=== PATIENT | female | born 1985 | race Caucasian/White ===

== ENCOUNTER 2018-01-22 07:58 | Emergency (ER) | payer BC ==
[~2018-01-22] VITALS: Ht 167.6 cm; Wt 126.1 kg
[2018-01-22] MEDS ORDERED: PROBIOTIC1 EAC4 PO (08:15)
[2018-01-22] MEDS ORDERED: ATENOLOL50 MG PO (08:15)
[2018-01-22] MEDS ORDERED: SERTRALINE HCL50 MG PO (08:15)
[2018-01-22] MEDS ORDERED: VITAMIN D250000 UNIT PO (08:16)
--- OUTSIDE RECORDS SUMMARY | 2018-01-22 09:11 | XMS | Encounter Summary ---
Demographics + + + | Address | [address] | | | [place] [address] | + + + | Home Phone | | + + + | Preferred Language | Unknown | + + + | Marital Status | | + + + | Latter-Day Affiliation | Unknown | + + + | Race | White | + + + | Ethnic Group | Not or | + + + Author + + + | Author | [facility] | + + + | Organization | [facility] | + + + | Address | Unknown | + + + | Phone | Unavailable | + + + Support + + + + + | Name | Relationship | Address | Phone | + + + + + | MAME QUINTANA | ECON | [address] | | | | | [place] | | | | | [address] | | + + + + + Care Team Providers + +------+ + | Care Floating Labor Gang Supervisor Name | Role | Phone | + +------+ + | Aleshia Martinez PA-C | PCP | | + +------+ + Encounter Details +--------+------+ + + + | Date | Type | Department | Care Team | Description | +--------+------+ + + + | 01/06/ | Lab | Laboratory at [facility] | | Morbid obesity with | | 2017 | | 3rd Floor [address] | | BMI of 40.0-44.9, | | | | [place], | | adult ([facility]); | | | | [place] [address] | | Borderline diabetes; | | | | [phone] | | Essential | | | | | | hypertension; Mild | | | | | | intermittent asthma | | | | | | without | | | | | | complication; | | | | | | Anxiety; Ventral | | | | | | hernia with | | | | | | obstruction and | | | | | | without gangrene; | | | | | | Stress incontinence | | | | | | in female | +--------+------+ + + + Social History + +-------+ +--------+ + | Tobacco Use | Types | Packs/Day | Years | Date | | | | | Used | | + +-------+ +--------+ + | Former Smoker | | | | Quit: 10/25/2006 | + +-------+ +--------+ + + +---+---+---+ | Smokeless Tobacco: | | | | | Never Used | | | | + +---+---+---+ + + +---------+ + | Alcohol Use | Drinks/We | oz/Week | Comments | | | ek | | | + + +---------+ + | No | | | | + + +---------+ + + + + | Sex Assigned at | Date Recorded | | | | + + + | Not on file | | + + + as of this encounter Plan of Treatment +--------+---------+ + + + | Date | Type | Specialty | Care Team | Description | +--------+---------+ + + + | 03/04/ | Office | Surgery | | | | 2018 | Visit | | | | +--------+---------+ + + + | 04/01/ | Office | Surgery | | | | 2017 | Visit | | | | +--------+---------+ + + + | 04/20/ | Office | Pain Management | Dylan Abraham, | | | 2017 | Visit | | PhD [address] | | | | | | [place], [place] | | | | | | [address] | | | | | | [phone] | | | | | | | | +--------+---------+ + + + as of this encounter Results CBC (HEMOGRAM) ONLY (01/06/2018 4:48 PM) + +-------+ + | Component | Value | Ref Range | + +-------+ + | WHITE CELL COUNT | 9.16 | 3.50 - 10.80 K/cu mm | + +-------+ + | RED CELL COUNT | 4.62 | 4.00 - 5.20 M/cu mm | + +-------+ + | HEMOGLOBIN | 14.5 | 12.0 - 16.0 g/dL | + +-------+ + | HEMATOCRIT | 42.2 | 36.0 - 46.0 % | + +-------+ + | MCV | 91.3 | 80.0 - 96.0 fL | + +-------+ + | MCHC | 34.4 | 33.0 - 35.5 g/dL | + +-------+ + | RDW SD | 43.2 | 35.1 - 46.3 fL | + +-------+ + | PLATELET COUNT | 311 | 150 - 400 K/cu mm | + +-------+ + | MPV | 11.1 | 9.7 - 12.3 fL | + +-------+ + | NRBC% | 0.0 | 0.0 - 0.3 % | + +-------+ + | NRBC# | 0.00 | 0.00 - 0.02 K/cu mm | + +-------+ + + + + | Specimen | Performing Laboratory | + + + | Blood | [facility], [facility]ORE [address] | | | [place] [address] | + + + LIPID SET (TRIG, T CHOL, HDL, CALC LDL) (01/06/2018 4:48 PM) + +---------+ + | Component | Value | Ref Range | + +---------+ + | CHOLESTEROL (LAB) | 252 (H) | <200 mg/dL | + +---------+ + | TRIGLYCERIDES | 206 (H) | <150 mg/dL | + +---------+ + | HDL CHOLESTEROL | 30 (L) | >40 mg/dL | + +---------+ + | HDL CMNT | No Hemo | | + +---------+ + | LDL CHOLESTEROL, | 181 (H) | <100 mg/dL | | CALCULATED | | | + +---------+ + | VLDL CHOLESTEROL, | 41 (H) | <31 mg/dL | | CALCULATED | | | + +---------+ + | NON-HDL CHOLESTEROL | 222 (H) | <130 mg/dL | + +---------+ + + + + | Specimen | Performing Laboratory | + + + | Blood | [facility], CORE [address] | | | [place] [address] | + + + + + | Narrative | + + | Cholesterol Reference Range: Desirable: <200 | | mg/dL Borderline High: 200 - 239 mg/dL | | High: >=240 mg/dL LDL Cholesterol | | Reference Range: Optimal: <100 mg/dL Near | | Optimal: 100-129 mg/dL Borderline High: 130-159 mg/dL | | High: 160-189 mg/dL Very High: | | >=190 mg/dL non-HDL Cholesterol Reference Range: | | Optimal: <130 mg/dL Near Optimal: 130-159 mg/dL | | Borderline High: 160-189 mg/dL High: 190-209 | | mg/dL Very High: >=210 mg/dL Triglyceride Reference | | Range: Normal: <150 mg/dL Borderline High: 150-199 mg/dL | | High: 200-499 mg/dL Very High: >=500 | | mg/dL HDL Reference Range: High Risk: <40 mg/dL | | Desirable: >=60 mg/dL | + + HEMOGLOBIN A1C, BLOOD (01/06/2018 4:48 PM) + + + + | Component | Value | Ref Range | + + + + | HEMOGLOBIN A1C | 5.9 (H)Comment: Hgb A1C Interpretive | <5.7 % | | | Information: <5.7% - Normal | | | | 5.7-6.4% - Consistent with | | | | pre-diabetes >6.4% - Consistent | | | | with diabetes | | | | 5.7-6.4% - Consistent with pre-diabetes | | | | >6.4% - Consistent with diabetes | | | | | | | | | | + + + + + + + | Specimen | Performing Laboratory | + + + | Blood | [facility], SPECIAL IMM + COAG [address] | | [place] [address] | + + + + + | Narrative | + + | Alternate forms of testing such as fructosamine should be considered for | | monitoring winder tender glycemic control in patients with: Increased red cell turnover, | | certain hemoglobinopathies (e.g., HbS, HbE, HbC and thalassemia syndromes), anemias, | | blood loss, chronic liver disease and hemochromatosis (artefactually low HbA1c); iron | | deficiency anemia (artefactually high HbA1c due to enhanced glycation of hemoglobin). | | | + + VITAMIN B1, WHOLE BLOOD (01/06/2018 4:48 PM) + + + + | Component | Value | Ref Range | + + + + | VITAMIN B1, WHOLE | 115Comment: INTERPRETIVE INFORMATION: | 70 - 180 nmol/L | | BLOOD | Vitamin B1, Whole Blood This assay measures | | | | the concentration of thiamine diphosphate | | | | (TDP), the primary active form of vitamin | | | | B1. Approximately 90 percent of vitamin B1 | | | | present in whole blood is TDP. Thiamine and | | | | thiamine monophosphate, which comprise the | | | | remaining 10 percent, are not measured. | | | | Test developed and characteristics | | | | determined by [employer]. See | | | | Compliance Statement B: | | | | [facility]/CSPerformed by [facility] | | | | Formerly [facility],[address] [place] [address] | | | | [phone].[employer], Gerardo Esquivel, | | | | Sushant GOMEZ. Director | | + + + + + + + | Specimen | Performing Laboratory | + + + | Blood | [facility] [address] [address] | | | [place] [address] | + + + COMPLETE METABOLIC SET (NA,K,CL,CO2,BUN,CREAT,GLUC,CA,AST,ALT,BILI TOTAL,ALK PHOS,ALB,PROT TOTAL) (01/06/2018 4:48 PM) + + + + | Component | Value | Ref Range | + + + + | GLUCOSE, PLASMA | 76 | 70 - 99 mg/dL | | (LAB) | | | + + + + | BUN, PLASMA (LAB) | 10 | 6 - 20 mg/dL | + + + + | CREATININE PLASMA | 0.52 (L) | 0.60 - 1.10 mg/dL | | (LAB) | | | + + + + | EGFR - | >60 | >60 mL/min | | ISRAELI | | | + + + + | EGFR NON | >60 | >60 mL/min | | -ISRAELI | | | + + + + | SODIUM, PLASMA (LAB) | 139 | 136 - 145 mmol/L | + + + + | POTASSIUM, PLASMA | 3.5 | 3.4 - 5.0 mmol/L | | (LAB) | | | + + + + | CHLORIDE, PLASMA | 106 | 97 - 108 mmol/L | | (LAB) | | | + + + + | TOTAL CO2, PLASMA | 24 | 21 - 32 mmol/L | | (LAB) | | | + + + + | CALCIUM, PLASMA | 8.8 | 8.6 - 10.2 mg/dL | | (LAB) | | | + + + + | CALCIUM(ALB | 9.0 | 8.6 - 10.2 mg/dL | | CORRECTED) | | | + + + + | BILIRUBIN TOTAL | 0.7 | 0.3 - 1.2 mg/dL | + + + + | TOTAL PROTEIN, | 7.6 | 6.4 - 8.2 g/dL | | PLASMA (LAB) | | | + + + + | ALBUMIN, PLASMA | 3.8 | 3.5 - 4.7 g/dL | | (LAB) | | | + + + + | ALK PHOS | 59 | 42 - 98 U/L | + + + + | AST(SGOT) | 21 | <=41 U/L | + + + + | ALT (SGPT) | 32 | <=60 U/L | + + + + | ANION GAP | 9 | 4 - 11 mmol/L | + + + + | ANION GAP(ALB | 9 | 4 - 11 mmol/L | | CORRECTED) | | | + + + + | POTASSIUM CMNT | No Hemo | | + + + + | BILI T CMNT | No Hemo | | + + + + | AST CMNT | No Hemo | | + + + + + + + | Specimen | Performing Laboratory | + + + | Blood | [facility], [facility] [address] [facility] | | | [place] [address] | + + + + + | Narrative | + + | Adult glucose reference range change effective 05-05-17. GFR is estimated using the | | MDRD equation recommended by the National Kidney Disease Education Program. | | Estimated GFR Interpretive Information: <60 mL/min/1.73 sq | | m Chronic Kidney Disease <15 mL/min/1.73 sq | | m Kidney Failure Estimated GFR greater that 60 mL/min/1.73 | | sq m is of limited clinical value. The MDRD equation is not valid in the following | | situations: - Patients under 18 years of age - Severe malnutrition or obesity - | | Vegetarian diet - Rapidly changing kidney function | + + CBC ONLY (01/06/2018 4:48 PM) + + + | Specimen | Performing Laboratory | + + + | Blood | | + + + + + | Narrative | + + | The following orders were created for panel order CBC ONLY. | | Procedure | | Abnormality Status | | --------- | | ------ CBC (HEMOGRAM) | | ONLY[[id number]] Final | | result Please view results for these tests on the | | individual orders. | + + IRON AND TIBC (01/06/2018 4:48 PM) + +-------+ + | Component | Value | Ref Range | + +-------+ + | IRON | 124 | 30 - 160 ug/dL | + +-------+ + | IRON BIND CAP | 367 | 240 - 450 ug/dL | + +-------+ + | % SATURATION | 34 | 20 - 50 % | | TRANSFERRIN, | | | + +-------+ + + + + | Specimen | Performing Laboratory | + + + | Blood | [facility], [address] | | | [place] [address] | + + + VITAMIN B-12 (01/06/2018 4:48 PM) + +-------+ + | Component | Value | Ref Range | + +-------+ + | VITAMIN B12 | 403 | 193 - 986 pg/mL | + +-------+ + | COMMENT (HEMO) | 1 | | + +-------+ + | COMMENT (ICTERUS) | 1 | | + +-------+ + | COMMENT (LIPEMIA) | 1 | | + +-------+ + + + + | Specimen | Performing Laboratory | + + + | Blood | [facility], [address] [address] | | | [place] [address] | + + + FERRITIN (01/06/2018 4:48 PM) + + + + | Component | Value | Ref Range | + + + + | FERRITIN | 46 (L)Comment: Male and Female >18 years: | 50 - 200 ng/mL | | | <20 ng/mL: Consistant with | | | | iron deficiency 21-50 ng/mL: | | | | Possible iron deficiency 51-99 | | | | ng/mL: Iron deficiency unlikely | | | | unless inflammation present | | | | or p | | | | atient >65 years of age 100-200 | | | | ng/mL: Normal, not consistent with | | | | iron deficiency >200 ng/mL: | | | | If transferrin saturation >45%, consider | | | | hemochromatosis | | + + + + + + + | Specimen | Performing Laboratory | + + + | Blood | [facility], [address]ORE [address] [facility] | | | [place] [address] | + + + PTH, SERUM (01/06/2018 4:48 PM) + +-------+ + | Component | Value | Ref Range | + +-------+ + | PTH, SERUM | 51 | 18 - 88 pg/mL | + +-------+ + + + + | Specimen | Performing Laboratory | + + + | Blood | [facility], [address] [facility] [address] | | | [place] [address] | + + + + + | Narrative | + + | New Reference Range effective 17. | + + VITAMIN D, 25-HYDROXY, SERUM (01/06/2018 4:48 PM) + + + + | Component | Value | Ref Range | + + + + | VITAMIN D 25 HYDROXY | 18.7 (L) | 30 - 80 ng/mL | + + + + + + + | Specimen | Performing Laboratory | + + + | Blood | [facility], [address]ORE [address] | | | [place] [address] | + + + + + | Narrative | + + | Reference Interval: 0-18years: Deficiency: <20 ng/mL | | Optimum level: >or=20 | | ng/mL >18years: | | Deficiency: <20 ng/mL | | Insufficiency: 20-29 ng/mL Optimum Level: 30-80 ng/mL | | High: 81-150 ng/ml | | Toxic: >150 ng/mL | + + TSH (01/06/2018 4:48 PM) + +-------+ + | Component | Value | Ref Range | + +-------+ + | TSH | 3.91 | 0.39 - 4.17 mIU/L | + +-------+ + + + + | Specimen | Performing Laboratory | + + + | Blood | [facility], [address] [facility] | | | [place] [address] | + + + + + | Narrative | + + | TSH reference ranges are influenced by a variety of environmental influences, age, | | gender and ethnicity. The supplied reference limits are based on published values | | utilizing a similar TSH assay, and should be interpreted with caution. | + + in this encounter Visit Diagnoses + + | Diagnosis | + + | Morbid obesity with BMI of 40.0-44.9, adult (HCC) | + + | Borderline diabetes | + + | Other abnormal glucose | + + | Essential hypertension | + + | Mild intermittent asthma without complication | + + | Unspecified asthma | + + | Anxiety | + + | Anxiety state, unspecified | + + | Ventral hernia with obstruction and without gangrene | + + | Ventral hernia, unspecified, with obstruction | + + | Stress incontinence in female | + +"
--- OUTSIDE RECORDS SUMMARY | 2018-01-22 09:11 | XMS | Encounter Summary ---
Demographics + + + | Address | [address] | | | [place] [address] | + + + | Home Phone | | + + + | Preferred Language | Unknown | + + + | Marital Status | | + + + | Nondenominational Affiliation | Unknown | + + + | Race | White | + + + | Ethnic Group | Not or | + + + Author + + + | Author | [facility] | + + + | Organization | [facility] | + + + | Address | Unknown | + + + | Phone | Unavailable | + + + Support + + + + + | Name | Relationship | Address | Phone | + + + + + | MAME QU[place]NA | ECON | [address] | | | | | [place] | | | | | [address] | | + + + + + Care Team Providers + +------+ + | Care Roll Builder Name | Role | Phone | + +------+ + | Aleshia Martinez PA-C | PCP | | + +------+ + Encounter Details +--------+ + + + + | Date | Type | Department | Care Team | Description | +--------+ + + + + | 01/07/ | Telephone | Digestive Health | Yumiko Clarke, | | | 2017 | | Center at [facility] | [facility] [address] [facility] [address] | | | | | Floor [address] | [facility] | | | | | [address] Mailcode: CH[address]S | [place], [place] | | | | | [place] [facility] | [address] | | | | | and [place], [facility] | [phone] | | | | | floor [place], [place] | | | | | | [address] | | | | | | [phone] | | | +--------+ + + + + Social History + +-------+ [...] | 2017 | Visit | | PhD [address] | | | | | | [place], [place] | | | | | | [address] | | | | | | [phone] | | | | | | | | +--------+---------+ + + + as of this encounter Visit Diagnoses + + | Diagnosis | + + | Morbid obesity with BMI of 40.0-44.9, adult (HCC) - Primary | + + | Borderline diabetes | + + | Other abnormal glucose | + + | Essential hypertension | + + | Ventral hernia with obstruction and without gangrene | + + | Ventral hernia, unspecified, with obstruction | + + | Vitamin D deficiency disease | + + | Unspecified vitamin D deficiency | + +"
--- OUTSIDE RECORDS SUMMARY | 2018-01-22 09:11 | XMS | Clinical Summary ---
Demographics + + + | Address | [address] | | | [place] [address] | + + + | Home Phone | | + + + | Preferred Language | Unknown | + + + | Marital Status | | + + + | Amish Affiliation | Unknown | + + + | Race | White | + + + | Ethnic Group | Not or | + + + Author + + + | Author | [facility] | + + + | Organization | [facility] | + + + | Address | Unknown | + + + | Phone | Unavailable | + + + Support + + + + + | Name | Relationship | Address | Phone | + + + + + | MAME QUINTANA | ECON | [address] | | | | | [place] | | | | | [address] | | + + + + + Care Team Providers + +------+ + | Care Printed Circuit Board Panels Plater Name | Role | Phone | + +------+ + | Aleshia Martinez PA-C | PP | | + +------+ + Source Comments CANDY is fully live on both EpicCare Ambulatory and EpicCare InPatient.[facility] Allergies + + + + + + | Active Allergy | Reactions | Severity | Noted | Comments | | | | | Date | | + + + + + + | Adhesive | Rash | | 10/25/20 | | | | | | 17 | | + + + + + + | Contrast Medium | Rash | | 10/25/20 | | | | | | 17 | | + + + + + + | Latex | Rash | | 10/25/20 | | | | | | 17 | | + + + + + + | Naproxen | Rash | | 10/25/20 | | | | | | 17 | | + + + + + + Current Medications + + +---------+---------+------+------+-------+ | Prescription | Sig. | Disp. | Refills | Star | End | Statu | | | | | | t | Date | s | | | | | | Date | | | + + +---------+---------+------+------+-------+ | ATENOLOL ORAL | Take 50 mg by mouth | | | | | Activ | | | once daily. | | | | | e | + + +---------+---------+------+------+-------+ | sertraline 50 mg | Take 50 mg by mouth | | | | | Activ | | oral tablet | once daily. | | | | | e | + + +---------+---------+------+------+-------+ | LACTOBAC 40/BIFIDO | Take by mouth once | | | | | Activ | | 3/S.THERMOP | daily. | | | | | e | | (PROBIOTIC ORAL) | | | | | | | + + +---------+---------+------+------+-------+ | | Take 1 tablet by | | | | | Activ | | desogestrel-ethinyl | mouth once daily. | | | | | e | | estradiol (ENSKYCE) | | | | | | | | 0.15-0.03 mg oral | | | | | | | | tablet | | | | | | | + + +---------+---------+------+------+-------+ | IBUPROFEN ORAL | Take by mouth as | | | | | Activ | | | needed. | | | | | e | + + +---------+---------+------+------+-------+ | | Take 0.5 tablets by | | | | | Activ | | HYDROcodone-acetamin | mouth every four | | | | | e | | ophen 10-325 mg oral | hours as needed. | | | | | | | tablet | | | | | | | + + +---------+---------+------+------+-------+ | fluticasone 50 | Instill 2 sprays | | | | | Activ | | mcg/actuation nasal | into each nostril as | | | | | e | | spray,suspension | needed. | | | | | | + + +---------+---------+------+------+-------+ | ALBUTEROL INHL | Inhale as needed. | | | | | Activ | | | | | | | | e | + + +---------+---------+------+------+-------+ | cetirizine 10 mg | Take 10 mg by mouth | | | | | Activ | | oral tablet | once daily. | | | | | e | + + +---------+---------+------+------+-------+ | ergocalciferol | Take 1 capsule by | 15 | 0 | 03/1 | | Activ | | 50,000 unit oral | mouth every seven | capsule | | 04/13 | | e | | capsuleIndications: | days. Indications: | | | 18 | | | | Vitamin D Deficiency | Vitamin D Deficiency | | | | | | | (High Dose Therapy) | (High Dose Therapy) | | | | | | + + +---------+---------+------+------+-------+ | Cholecalciferol | Take 1 tablet by | 60 | 3 | 03/1 | | Activ | | (Vitamin D3) | mouth once daily. | tablet | | /20 | | e | | (VITAMIN D3) 5,000 | Indications: Vitamin | | | 18 | | | | unit oral | D Deficiency | | | | | | | tabletIndications: | | | | | | | | Vitamin D Deficiency | | | | | | | + + +---------+---------+------+------+-------+ Active Problems + + + | Problem | Noted Date | + + + | Morbid obesity with BMI of 40.0-44.9, adult (HCC) | 01/06/2018 | + + + | Borderline diabetes | 01/06/2018 | + + + | Essential hypertension | 01/06/2018 | + + + | Mild intermittent asthma without complication | 01/06/2018 | + + + | Anxiety | 01/06/2018 | + + + | Ventral hernia with obstruction and without gangrene | 01/06/2018 | + + + | Stress incontinence in female | 01/06/2018 | + + + Encounters +--------+ + + + + | Date | Type | Specialty | Care Team | Description | +--------+ + + + + | 01/12/ | MyChart | | Yumiko Clarke, | RE: RE: Is this | | 2018 | Encounter | | ACNP | vitamin ok? | +--------+ + + + + | 01/07/ | Telephone | | Yumiko Clarke, | | | 2017 | | | ACNP | | +--------+ + + + + | 01/06/ | Lab | | | Morbid obesity with | | 2017 | | | | BMI of 40.0-44.9, | | | | | | adult ([facility]); | | | | | | Borderline diabetes; | | | | | | Essential | | | | [...] | | | | in female | +--------+ + + + + | 01/06/ | Office | | Chetna Alves, RD | Morbid obesity with | | 2018 | Visit | | | BMI of 40.0-44.9, | | | | | | adult ([facility]) (Primary | | | | | | Dx); Ventral hernia | | | | | | with obstruction | | | | | | and without | | | | | | gangrene; Borderline | | | | | | diabetes | +--------+ + + + + | 01/06/ | Office | | Yumiko Clarke, | Morbid obesity with | | 2018 | Visit | | ACNP | BMI of 40.0-44.9, | | | | | | adult (HCC) (Primary | | | | | | Dx); Borderline | | | | | | diabetes; Essential | | | | | | [...] | | | | in female | +--------+ + + + + | 01/06/ | Office | | Christelle Hannon, PT | Morbid obesity with | | 2018 | Visit | | | BMI of 40.0-44.9, | | | | | | adult ([facility]) (Primary | | | | | | Dx); Essential | | | | | | hypertension; | | | | | | Ventral hernia with | | | | | | obstruction and | | | | | | without gangrene; | | | | | | Physical | | | | | | deconditioning | +--------+ + + + + | 10/27/ | Abstract | | Clinic, Surgery | Referral To | | 2018 | | | | Bariatric Surgery | +--------+ + + + + | 10/27/ | Crew Leader | | Marta Simmons, | Morbid obesity (HCC) | | 2017 | | | AGACNP | (Primary Dx) | +--------+ + + + + | 10/26/ | Documentati | | Clinic, Surgery | | | 2017 | on | | | | +--------+ + + + + | 10/26/ | Documentati | | Clinic, Surgery | | | 2017 | on | | | | +--------+ + + + + | 10/26/ | Documentati | | Yumiko Clarke, | New patient | | 2018 | on | | ACNP | consultation | | | | | | (Bariatric | | | | | | questionnaire) | +--------+ + + + + from Last 3 Months Family History + + +------+ + | Medical History | Relation | Name | Comments | + + +------+ + | High blood pressure | Brother | | hyperlipidemia | + + +------+ + | Allergies | Brother | | | + + +------+ + | Diabetes | Mother | | | + + +------+ + | High blood pressure | Mother | | hyperlipidemia | + + +------+ + + +------+--------+ + | Relation | Name | Status | Comments | + +------+--------+ + | Brother | | Alive | | + +------+--------+ + | Brother | | Alive | | + +------+--------+ + | Father | | Alive | | + +------+--------+ + | Mother | | Alive | | + +------+--------+ + Social History + +-------+ +--------+ + [...] on file | | + + + Last Filed Vital Signs + + + + | Vital Sign | Reading | Time Taken | + + + + | Blood Pressure | 149/95 | 01/06/2018 2:10 PM PDT | + + + + | Pulse | 70 | 01/06/2018 2:10 PM PDT | + + + + | Temperature | 36.8 C (98.3 F) | 01/06/2018 2:10 PM PDT | + + + + | Respiratory Rate | 14 | 01/06/2018 2:10 PM PDT | + + + + | Oxygen Saturation | 97% | 01/06/2018 2:10 PM PDT | + + + + | Inhaled Oxygen | - | - | | Concentration | | | + + + + | Weight | 126.3 kg (278 lb 6.4 | 01/06/2018 2:10 PM PDT | | | oz) | | + + + + | Height | 167.6 cm (5' 6") | 01/06/2018 2:10 PM PDT | + + + + | Body Mass Index | 44.93 | 01/06/2018 2:10 PM PDT | + + + + Plan of Treatment +--------+---------+ + + + | Date | Type | Specialty | Care Team | Description | +--------+---------+ + + + | 03/04/ | Office | | | | | 2017 | Visit | | | | +--------+---------+ + + + | 04/01/ | Office | | | | | 2017 | Visit | | | | +--------+---------+ + + + | 04/20/ | Office | | Dylan Abraham, | | | 2017 | Visit | | PhD [address] | | | | | | [place], [place] | | | | | | [address] | | | | | | [phone] | | | | | | | | +--------+---------+ + + + + + + + + | Health Maintenance | Due Date | Last Done | Comments | + + + + + | INFLUENZA VACCINE | | | | | (FLU SHOT) | 7 | | | + + + + + Procedures + +--------+ + + + | Procedure Name | Priori | Date/Time | Associated Diagnosis | Comments | | | ty | | | | + +--------+ + + + | [facility] THERAPEUTIC | Routin | 01/10/2018 | Morbid obesity | | | EXERCISES | e | 9:42 AM | with BMI of | | | | | PDT | 40.0-44.9, adult | | | | | | ([facility]) Essential | | | | | | hypertension | | | | | | Ventral hernia with | | | | | | obstruction and | | | | | | without gangrene | | | | | | Physical | | | | | | deconditioning | | + +--------+ + + + | [facility] MNT INITIAL | Routin | 01/07/2018 | Ventral hernia | | | ASSESSMNT X15MIN | e | 7:51 AM | with obstruction and | | | | | PDT | without gangrene | | | | | | Morbid obesity with | | | | | | BMI of 40.0-44.9, | | | | | | adult (HCC) | | | | | | Borderline diabetes | | + +--------+ + + + from Last 3 Months Results CBC (HEMOGRAM) ONLY (01/06/2018 4:48 PM) [...] | + + + | Blood | [facility], CORE [address] | | | [place] [address] | + + + VITAMIN B1, WHOLE BLOOD (01/06/2018 [...] characteristics | | | | determined by [employer]. See | | | | Compliance Statement B: | | | | [employer]CSPerformed by [employer] | | | | Formerly [facility],[address] [place] [address] | | | | [phone], Gerardo Esquivel, | | | | Sushant GOMEZ. Director | | + + + + + + + | Specimen | Performing Laboratory | + + + | Blood | [facility] INT [address] | | | [place] [address] | + + + VITAMIN D, 25-HYDROXY, SERUM (01/06/2018 4:48 PM) + + + + | Component | Value | Ref Range | + + + + | VITAMIN D 25 HYDROXY | 18.7 (L) | 30 - 80 ng/mL | + + + + + + + | Specimen | Performing Laboratory | + + + | Blood | [facility], CORE [address] | | | [place] [address] | + + + + + | Narrative | + + | Reference Interval: 0-18years: Deficiency: <20 ng/mL | | Optimum level: >or=20 | | ng/mL >18years: | | Deficiency: <20 ng/mL | | Insufficiency: 20-29 ng/mL Optimum Level: 30-80 ng/mL | | High: 81-150 ng/ml | | Toxic: >150 ng/mL | + + COMPLETE METABOLIC SET (NA,K,CL,CO2,BUN,CREAT,GLUC,CA,AST,ALT,BILI TOTAL,ALK [...] | >60 | >60 mL/min | | ENGLISH | | | + + + + | EGFR NON | >60 | >60 mL/min | | -ENGLISH | | | + + + + [...] | + + + | Blood | [facility], CORE [address] | | | [place] [address] | + + + + + | Narrative | + + | Adult glucose reference range change effective 7-17. GFR is estimated using the | | [...] | | ------ CBC (HEMOGRAM) | | ONLY[[id number]] Final | | result Please view results for these tests on the | | individual orders. | + + FERRITIN (01/06/2018 4:48 PM) + [...] | + + + | Blood | [facility], CORE [address] | | | [place] [address] | + + + PTH, SERUM (01/06/2018 4:48 PM) + +-------+ + | Component | Value | Ref Range | + +-------+ + | PTH, SERUM | 51 | 18 - 88 pg/mL | + +-------+ + + + + | Specimen | Performing Laboratory | + + + | Blood | [facility], CORE [address] | | | [place] [address] | + + + + + | Narrative | + + | New Reference Range effective 17. | + + TSH (01/06/2018 4:48 PM) + +-------+ + | Component | Value | Ref Range | + +-------+ + | TSH | 3.91 | 0.39 - 4.17 mIU/L | + +-------+ + + + + | Specimen | Performing Laboratory | + + + | Blood | [facility], CORE [address] | | | [place] [address] | + + + + + | Narrative | + + | TSH reference ranges are influenced by a variety of environmental influences, age, | | gender and ethnicity. The supplied reference limits are based on published values | | utilizing a similar TSH assay, and should be interpreted with caution. | + + LIPID SET (TRIG, T CHOL, [...] | + + + | Blood | [facility], CORE [address] [place] [address] | | | [place] [address] | + + + + + | [...] | Desirable: >=60 mg/dL | + + VITAMIN B-12 (01/06/2018 4:48 PM) [...] | + + + | Blood | [facility], CORE [address] | | | [place] [address] | + + + HEMOGLOBIN A1C, BLOOD (01/06/2018 4:48 [...] | + + + | Blood | [facility], SPECIAL IMM + COAG [address] | | | [place] [address] | + + + + + | Narrative | + + | Alternate forms of testing such as fructosamine should be considered for | | monitoring residential glycemic control in patients with: Increased red cell turnover, | | certain hemoglobinopathies (e.g., HbS, HbE, HbC and thalassemia syndromes), anemias, | | blood loss, chronic liver disease and hemochromatosis (artefactually low HbA1c); iron | | deficiency anemia (artefactually high HbA1c due to enhanced glycation of hemoglobin). | | | + + IRON AND TIBC (01/06/2018 [...] | + + + | Blood | [facility], CORE [address] | | | [place] [address] | + + + 12 LEAD ECG (01/06/2018 4:25 PM) + + + + | Component | Value | Ref Range | + + + + | VENTRICULAR RATE | 57 | bpm | + + + + | ATRIAL RATE | 57 | ms | + + + + | P-R INTERVAL | 162 | ms | + + + + | P AXIS | 52 | deg | + + + + | QRS DURATION | 103 | ms | + + + + | QT | 431 | ms | + + + + | QTCB | 420 | ms | + + + + | R AXIS | -13 | deg | + + + + | T AXIS | 24 | deg | + + + + | ECG IMPRESSION | Sinus bradycardia- OTHERWISE NORMAL ECG - | | + + + + | ECG IMPRESSION | Electronically signed by: HUMBLE BURK | | | | 01-07-2018 22:38:11 | | + + + + + + + | Specimen | Performing Laboratory | + + + | | [facility] [address] | | | [place] [address] | + + + from Last 3 Months
--- OUTSIDE RECORDS SUMMARY | 2018-01-22 09:11 | XMS | Encounter Summary ---
Demographics + + + | Address | [address] | | | [place] [address] | + + + | Home Phone | | + + + | Preferred Language | Unknown | + + + | Marital Status | | + + + | Muslim Affiliation | Unknown | + + + | Race | White | + + + | Ethnic Group | Not or | + + + Author + + + | Author | [facility] | + + + | Organization | [facility] | + + + | Address | Unknown | + + + | Phone | Unavailable | + + + Support + + + + + | Name | Relationship | Address | Phone | + + + + + | MAME QUINTANA | ECON | [address] | | | | | [place] | | | | | [address] | | + + + + + Care Team Providers + +------+ + | Care Director Prison Name | Role | Phone | + +------+ + | Aleshia Martinez PA-C | PCP | | + +------+ + Reason for Visit Physical Therapy (Routine) + +--------+ + + + + | Status | Reason | Specialty | Diagnoses / | Referred By | Referred To | | | | | Procedures | Contact | Contact | + +--------+ + + + + | Pending | | Physical | Diagnoses | Iris | Erinn Lopez Ch | | Review | | Therapy | Morbid | Mary W, | [address] | | | | | obesity | AGACNP [address] | | | | | ([facility]) | [address] | Mailcode: | | | | | Procedures | [place], | [address] | | | | | PHYSICAL | [place] | for Health | | | | | THERAPY | [address] | and Healing, | | | | | REFERRAL | Phone: | 1st floor | | | | | | [phone] | [place], [place] | | | | | | Fax: | [address] | | | | | | [phone] | Phone: | | | | | | | [phone] | | | | | | | Fax: | | | | | | | [phone] | + +--------+ + + + + Encounter Details +--------+---------+ + + + | Date | Type | Department | Care Team | Description | +--------+---------+ + + + | 01/06/ | Office | Rehabilitation | Nesha Hannon, PT | Morbid obesity with | | 2018 | Visit | Services at [facility] 1st | [address] | BMI of 40.0-44.9, | | | | Floor [address] | [address] [place], | adult (HCC) (Primary | | | | Ave Mailcode: CH3P | [place] [address] | Dx); Essential | | | | [place] [facility] | [phone] | hypertension; | | | | and Healing, 1st | | Ventral hernia with | | | | floor [place], [place] | | obstruction and | | | | [address] | | without gangrene; | | | | [phone] | | Physical | | | | | | deconditioning | +--------+---------+ + + + Social History + +-------+ [...] + + + as of this encounter Progress Notes Nseha Hannon, PT - 01/06/2018 1:00 PM PDTFormatting of this note may be different from byron smith. Insurance: Payor: WORKERS COMP OTHER / Plan: WORKERS COMP OTHER / Product Type: Workers Com p / Non-Medicare [facility] PHYSICAL THERAPY EVALUATION Past Medical History: Diagnosis Date Anxiety Asthma Depression Diverticulitis Glucose intolerance (impaired glucose tolerance) HTN (hypertension) Irregular periods Morbid obesity with BMI of 40.0-44.9, adult (HCC) Pneumonia Ventral hernia, recurrent Past Surgical History Procedure Laterality Date Diagnostic laparoscopy 2009 Fallopian tube transection 2012 Ventral hernia repair with mesh 2014 Hernia repair 2015 Addition of mesh implant to ventral hernia repair 2015 Current Outpatient Prescriptions: ALBUTEROL INHL, Inhale as needed., Disp: , Rfl: ATENOLOL ORAL, Take 50 mg by mouth once daily. , Disp: , Rfl: cetirizine 10 mg oral tablet, Take 10 mg by mouth once daily., Disp: , Rfl: Cholecalciferol (Vitamin D3) (VITAMIN D3) 5,000 unit oral tablet, Take 1 tablet by mouth on ce daily. Indications: Vitamin D Deficiency, Disp: 60 tablet, Rfl: 3 desogestrel-ethinyl estradiol (ENSKYCE) 0.15-0.03 mg oral tablet, Take 1 tablet by mouth on ce daily., Disp: , Rfl: ergocalciferol 50,000 unit oral capsule, Take 1 capsule by mouth every seven days. Indicati ons: Vitamin D Deficiency (High Dose Therapy), Disp: 15 capsule, Rfl: 0 fluticasone 50 mcg/actuation nasal spray,suspension, Instill 2 sprays into each nostril as needed., Disp: , Rfl: HYDROcodone-acetaminophen 10-325 mg oral tablet, Take 0.5 tablets by mouth every four hours as needed., Disp: , Rfl: IBUPROFEN ORAL, Take by mouth as needed., Disp: , Rfl: LACTOBAC 40/BIFIDO 3/S.THERMOP (PROBIOTIC ORAL), Take by mouth once daily., Disp: , Rfl: sertraline 50 mg oral tablet, Take 50 mg by mouth once daily., Disp: , Rfl: Previous physical therapy treatment or alternative treatments for this condition includes: none. Results of previous treatment: N/A. Concurrent medical treatment: PCP. Condition Specific Evaluation: Including Body functions, Body structures and Impairments Pain: pain is not a significant clinical problem [facility] PHYSICAL THERAPY EVALUATION History of Presenting Problem: Pt is here for Prehabilitation evaluation prior to Bariatric abdominal surgery. She plans to have the gastric sleeve abdominal surgery . Prior Services: Current Services: Current PA: stepper or walking daily 2.4 miles. Current functional Status: Indep. Pain Reported in location of abdomen ( hernia) intermittent pain. Pain is a 0-9/10 on a scale of 0-10. Pain is: with up and moving around, wears a corset ab dominal brace. Sleep -insomnia, vitamin D helping. Patient's current occupational status: unable to work due to pain/injury. lives with husba nd. Living situation/environment is limiting function: no Equipment at home: none Requests family members or friends involved with rehabilitation therapy: No Anxieties o r concerns about therapy: no Patient's goals are to: be healthier. OBJECTIVE: EXAM: Vitals:135/78mmHg BP 67 Po2 98 % Weight: ROM: WFL Balance/Coordination: steady gait and turns. Transfers: difficulty with lying to sitting(wears an abdominal brace) Outcome Measures: Outcome measure Score 01/06/2018 Interpretation Goal at 12 weeks 30 sec sit to stand 9 reps Normal values: 30 y/o = 30 reps 40 y/o = 25 reps 50 y/o = 20 reps 60 y/o = 15 reps 70 y/o = 13 reps 80 y/o = 12 reps 90 y/o = 10 reps 30 sec sit to stand: 25-30 reps 6 min walk test: Vitals at rest: 135/78mmHg BP 67 PO2 98 % Vitals at end of walk test: 143/71 HR 79 PO2 98% Distance walked: 1457 ft Assistive device: no Deviations: no Seated/standing breaks: no RPE: light-moderate (Track = 110') 6-Minute Walk Test Distances: Means and Standard Deviations by Age and Gender 30-39 yo: male 2346'/female 2133' Treatment: Therapeutic exercises:15 minutes Intervention Date* Comments Compliance 01/06/2018 Predicted: good Progressive walking program 01/06/2018 Instructions and handout provided General light strengthening/stretching exercises 01/06/2018 Instructions and handout provi ded Logroll instruction 01/06/2018 Instructions and handout provided Abdominal precautions instruction 01/06/2018 Instructions and handout provided * indicates date intervention started. see comments for details of compliance, modification s, deletions ASSESSMENT: Patient is a referred to PT for prehabilitation evaluation prior to Bariatric a bdominal surgery. Patient exam findings include decreased ROM, decreased strength, decreased activity tolerance and physical deconditioning. Scored lower than age norms on functional t ests. Symptoms are limiting patient with daily and functional activities including: bending over, running , prolonged walking. Best evidence practice recommends obese pt's with knee pain lose 5% of their wt doing non-w t bearing activities prior to doing wt bearing activities to avoid progress on OA. Patient has been provided with instruction on appropriate exercise and pain control strateg ies to increase aerobic PA to prepare for major bariatric abdominal surgery. She will grace nue with her walking program and add light strengthening exercises demonstrated today. LONG-TERM GOALS: Discussed with . Due in 12 weeks. Aerobic PA 30 minutes per day, all days(may be three 10 minute or two 15 minute bouts) Performing strengthening exercises 3x/wk. Independent with home exercise program. See topics above to identify problem areas and goals Personal factors/Comorbidities: Musculoskeletal , Posture, Height/Weight BMI and Hernia C ommunication: No noted deficits, Psychosocial: No noted deficits, Moderate 1-2 Body structures & functions, Activity limitations, participation restrictions: Moderate - 3 or more Justification: prolonged walking, jumping/ running, transfers, lifting Stability of condition: Pre-op status with uncertain recovery course Moderate - Evolving Clinical decision making: Pre-op status with uncertain recovery course Moderate - Moderate complexity Complexity: Moderate - 01390 The patient requires services that can be safely and effectively performed only by a qualif ied therapist to address the aforementioned and highlighted problems and goals. Goals discussed and agreed upon with patient and/or family. Individual cultural and social needs addressed. Rehab Potential: Good, if Sara carries through with home exercise program. This note is to serve as the discharge summary if the patient fails to attend further Physi yoanna Therapy appointments or contact the therapist regarding any change in their status. NESHA HANNON, PT [facility] 1ST FLOOR Scheduled Appointment time: 1:00 PM Treatment began: 1300 Treatment ended: 1345 Patient was seen for a total of 45 minutes of treatment time. 45 minutes was in direct cont act care as described above and on completed flow sheets. Treatment Interventions duration in minutes: Procedure:Physical Therapy Evaluation and Ther apeutic Exercise 15 min PLAN OF CARE (Established 01/06/2018 to be updated every 60 days): Aerobic PA Strengthening exercises Stretching exercises Frequency: 1 Duration: 1 Total number of visits: 1 Referral information Authorizing Provider: MARY ADAMS [[id number]] Onset/Referral Date: 10/27/17 Primary/Referral Diagnosis: E66.01, Z68.41 Morbid obesity with BMI of 40.0-44.9, adult (H CC) I10 Essential hypertension K43.6 Ventral hernia with obstruction and without gangrene R53.81 Physical deconditioning Start of care: 01/06/2018 Service period from: 01/06/2018 to: - Next progress report 02/05/2018 Insurance: Payor: WORKERS COMP OTHER / Plan: WORKERS COMP OTHER / Product Type: [employer] p / G-code:- code not needed. Number visits authorized: 1 Number visits used: 1 Outcome Measure 01/06/2018 Activity 1 (3 point increase is significant for any one activity): 3 (standing for more than 1 hour) Activity 2: 3 (washing dishes) Activity 3: 3 (lying to sitting) Activity 4: 0 Activity 5: 0 Patient Specific Functional Scale Total Score: 9 in this encounter Plan of Treatment +--------+---------+ + [...] | | | | | | [place], [place] | | | | | | [address] | | | | | | [phone] | | | | | | | | +--------+---------+ + + + as of this encounter Procedures + +--------+ + + + | Procedure Name | Priori | Date/Time | Associated Diagnosis | Comments | | | ty | | | | + +--------+ + + + | MS THERAPEUTIC | Routin | 01/10/2018 | Morbid obesity | | | EXERCISES | e | 9:42 AM | with BMI of | | | | | PDT | 40.0-44.9, adult | | | | | | (HCC) Essential | | | | | | hypertension | | | | | | Ventral hernia with | | | | | | obstruction and | | | | | | without gangrene | | | | | | Physical | | | | | | deconditioning | | + +--------+ + + + in this encounter Visit Diagnoses + + | Diagnosis | + + | Morbid obesity with BMI of 40.0-44.9, adult (HCC) - Primary | + + | Essential hypertension | + + | Ventral hernia with obstruction and without gangrene | + + | Ventral hernia, unspecified, with obstruction | + + | Physical deconditioning | + + | Debility, unspecified | + +"
--- OUTSIDE RECORDS SUMMARY | 2018-01-22 09:11 | XMS | Encounter Summary ---
Demographics + + + | Address | [address] | | | [place] [address] | + + + | Home Phone | | + + + | Preferred Language | Unknown | + + + | Marital Status | | + + + | Church Affiliation | Unknown | + + + | Race | White | + + + | Ethnic Group | Not or | + + + Author + + + | Author | [facility] | + + + | Organization | [facility] | + + + | Address | Unknown | + + + | Phone | Unavailable | + + + Support + + + + + | Name | Relationship | Address | Phone | + + + + + | MAME QUINTANA | ECON | [address] | | | | | [place] | | | | | [address] | | + + + + + Care Team Providers + +------+ + | Care Door Closer Mechanic Name | Role | Phone | + +------+ + | Aleshia Martinez PA-C | PCP | | + +------+ + Encounter Details +--------+ + + + + | Date | Type | Department | Care Team | Description | +--------+ + + + + | 01/12/ | MyChart | [facility] | Yumiko Clarke, | RE: RE: Is this | | 2018 | Encounter | Center at [facility] 6th | ACNP [address] | vitamin [place]? | | | | Floor [address] | [address] | | | | | [address] Mailcode: CH4S | [place], [place] | | | | | [place] [facility] | [address] | | | | | and , | [phone] | | | | | floor [place], [place] | | | | | | [address] | | | | | | [phone] | | | +--------+ + + + [...] | | | | | | [place] | | | | | | [address] | | | | | | [phone] | | | | | | | | +--------+---------+ + + + as of this encounter Visit Diagnoses Not on filein this encounter"
--- OUTSIDE RECORDS SUMMARY | 2018-01-22 09:12 | XMS | Encounter Summary ---
Demographics + + + | Address | [address] | | | [place] [address] | + + + | Home Phone | | + + + | Preferred Language | Unknown | + + + | Marital Status | | + + + | Yarsanism Affiliation | Unknown | + + + | Race | White | + + + | Ethnic Group | Not or | + + + Author + + + | Author | [facility] | + + + | Organization | [facility] | + + + | Address | Unknown | + + + | Phone | Unavailable | + + + Support + + + + + | Name | Relationship | Address | Phone | + + + + + | MAME QUINTANA | ECON | [address] | | | | | [place] | | | | | [address] | | + + + + + Care Team Providers + +------+ + | Care Roving Frame Tender Name | Role | Phone | + +------+ + | Aleshia Maritnez PA-C | PCP | | + +------+ + Reason for Referral Consultation (Routine) + +---------+ + + + + | Status | Reason | Specialty | Diagnoses / | Referred By | Referred To | | | | | Procedures | Contact | Contact | + +---------+ + + + + | New Request | Other | Pain | Diagnoses | Vince, | Electrical And Instrument Engineer Psych | | | | Management | Morbid | BIJAL Calderon | [address] | | | | | obesity with | [address] | | | | | BMI of | Guillermo Regan | Mail Code: | | | | | 40.0-44.9, | Shahla Sepulveda | [facility] | | | | | adult (HCC) | [place], [place] | for Health | | | | | Borderline | [address] | and Healing, | | | | | diabetes | Phone: | 15th Floor | | | | | Essential | [phone] | [place], [place] | | | | | hypertension | Fax: | [address] | | | | | Mild | [phone] | Phone: | | | | | intermittent | | [phone] | | | | | asthma | | Fax: | | | | | without | | [phone] | | | | | complication | | | | | | | Anxiety | | | | | | | Ventral | | | | | | | hernia with | | | | | | | obstruction | | | | | | | and without | | | | | | | gangrene | | | | | | | Stress | | | | | | | incontinence | | | | | | | in female | | | | | | | Procedures | | | | | | | CONSULT TO | | | | | | | PAIN | | | | | | | MANAGEMENT | | | + +---------+ + + + + Reason for Visit + + + | Reason | Comments | + + + | New patient | | | consultation | | + + + Consultation (Routine) + + + + + + + | Status | Reason | Specialty | Diagnoses / | Referred By | Referred To | | | | | Procedures | Contact | Contact | + + + + + + + | Pending | BAR: | Surgery | Diagnoses | Perez | Bar | | Review | Scheduled | | Morbid | Dalton, | Bariatric | | | with CASE PREPARER AND LINER | | obesity | Ganesh Holden MD | Surg [facility] | | | | | (HCC) | [address] | [address] | | | | | Procedures | [place] Regan | [place] | | | | | CONSULT TO | Shahla Sepulveda | Mailcode: | | | | | BARIATRIC | [place], [place] | [address] | | | | | SURGERY | [address] | for Health | | | | | | Phone: | and Healing, | | | | | | [phone] | [facility] floor | | | | | | Fax: | [place], [place] | | | | | | [phone] | [address] | | | | | | | Phone: | | | | | | | [phone] | | | | | | | Fax: | | | | | | | [phone] | + + + + + + + Encounter Details +--------+---------+ + + + | Date | Type | Department | Care Team | Description | +--------+---------+ + + + | 01/06/ | Office | Digestive Health | Yumiko Clarke, | Morbid obesity with | | 2018 | Visit | Center at [facility] 6th | [facility] [address] | BMI of 40.0-44.9, | | | | Floor [address] | [address] | adult ([facility]) (Primary | | | | Ave Mailcode: [facility] | [place], [place] | Dx); Borderline | | | | [place] for [facility] | [address] | diabetes; Essential | | | | and Healing, 6th | [phone] | hypertension; Mild | | | | floor [place], [place] | | intermittent asthma | | | | [address] | | without | | | | [phone] | | complication; | | | | | | Anxiety; Ventral | | | | | | hernia with | | | | | | obstruction and | | | | | | without gangrene; | | | | | | Stress incontinence | | | | | | in female | +--------+---------+ + + + Social History [...] + + + as of this encounter Last Filed Vital Signs + + + [...] PM PDT | + + + + in this encounter Instructions Patient Instructions - Yumiko Clarke ACNP - 01/06/2018 2:05 PM PDTImpression: 1. Borderline diabetes 2. HTN takes atenolol, BP elevated akfnh=008/95 3. Ventral hernia with MESH 4. Hx multiple abdominal surgeries 5. Asthma uses inhaler 6. Stress incontinence 7. Anxiety & depression This patient meets and or exceeds NIH criteria for morbid obesity with a BMI of 44.93 and c omorbidities related to obesity including pre-Type 2 diabetes, asthma, stress urinary incont inence and hypertension which may be improved with bariatric surgery. Records have been reviewed from her PCM and several attempts have been made to lose weight over the past years without success. She qu alifies for medically necessary weight loss surgery to control co-morbidities. Sara Caballero has attended the Public Informational Session in which risks and leslie efits of bariatric surgery were discussed. Discussion of realistic expectations of bariatri c surgery was held today. A Bariatric notebook with pre-op, inter-op and post-op guidance an d information was provided for the patient today. Plan: The following has been provided to Sara Caballero This is a preliminary visit for a evaluation for bariatric surgery. There are some patients who have too many illnesses, and this elective surgery would not be safe for them. We have listed some of the potential reasons below. You can over eat ANY of the surgeries. The surgery is a tool with diet and exercise to help you obtain a healthy weight. + Dietitian consultation: Today. + Physical therapy referral for Bariatric Surgery Prehabilitation: Today + Weight Management classes: 2 classes are required in addition to your private appointme nt with the manager marketing sales. These classes will be scheduled apporoximately 1 month apart to allow time for you to put the teaching into action. + Labs needed: Lipids, CBC, CMP, TSH, A1C, PTH, Vitamin D25, ferritin, B12, TIBC & iron. Please go to the 3rd floor and have these labs done. + Pap test: Please obtain thru your primary care and we want to see the lab result from e PAP smear. (not the note from your provider) + EKG: Please go to 9th floor today to get this done. + Pre-op Psychological Evaluation: If your referral is at [facility], The Pain Management Office will call you in the next week to schedule. + Please start taking a daily multivitamin with iron. + Insurance requirements: your insurance requires: none + Recommended weight loss: 5% wt loss goal of 14 pounds. If you are struggling with your w eight loss please call us to discuss some options. +The patient is willing to comply with the post-operative treatment plan Once the above list is completed and copies have been received by our office, we will submi t for insurance authorization then schedule with the surgeon. Yumiko PARSONS Bariatric Surgery Nurse Practitioner [facility] | [facility] [address] | [place], [place] | [address] | Potential Contraindications to Bariatric Surgery Age over 69 BMI over 60 Oxygen dependence Immobility wheelchair or bed bound Cardiac issues such as ischemic heart disease as indicated on cardiac stress test or cardia c catheterization; severe or uncompensated heart failure which may be indicated by a decreas ed ejection fraction. Pulmonary issues such as untreated sleep apnea, obesity hypoventilation syndrome, severe CO PD or asthma. Liver disease such as cirrhosis, esophageal varices, or portal hypertension. Severe, untreated renal disease. Rheumatologic and other diseases requiring immune suppressant medications. Untreated or active cancer. Untreated psychological disability. If you have any of the above conditions, you may not be a candidate for bariatric surgery. Our program will perform a thorough evaluation prior to making such a determination. This evaluation may involve testing or consultations. We will make every effort to notify patien ts who are not candidates for surgery as early in the process as possible, but it is importa nt to realize that the surgeon may make that determination later in the process. Clearance for surgery by your PCP or other providers does not guarantee that the [facility] Bariatric Surger y program will deem you a surgical candidate. in this encounter Progress Notes Yumiko Clarke ACNP - 01/06/2018 2:05 PM PDTFormatting of this note may be different from the original. BARIATRIC INITIAL VISIT Provider: Yumiko APPIAH PATIENT SAFETY TECH Referring Provider: Aleshia Martinez PA-C Reason for Requested Consultation: Initial evaluation for bariatric surgery. Sara LongjohanaAric is interested in sleeve g astrectomy. The pt is here by herself, she will have her at home to help with post-op care afte r surgery. History of Present Illness: She is a morbidly obese, 32 y.o. female with a BMI of 44.93, 2 78 lbs., and 5 foot 6 inches who has failed prior attempts at sustained dietary/medical weig ht loss and desires surgical weight loss in order to "be healthy, less hernia problems, bein g more active". Duration of obesity: 20 years. Onset of obesity at age 12 First diet attempts at age 18 Personally initiated diets:UNK Programmatic diets: UNK Physician Monitored diet: UNK Use of Redux or Phen/fen: yes, phentermine but doesn't like side effects Transthoracic ECHO: no Yarsanism or cultural reason you would refuse blood products? no Comorbidities include: pre-Type 2 diabetes, asthma, stress urinary incontinence and hyperte nsion All previous chart notes from PCP reviewed, previous tests and labs reviewed. ALLERGIES: Allergies Allergen Reactions Adhesive Rash Iodine Contrast [Contrast Medium] Rash Latex Rash Naproxen Rash Current Outpatient Prescriptions: ALBUTEROL INHL, Inhale as needed., Disp: , Rfl: ATENOLOL ORAL, Take 50 mg by mouth once daily. , Disp: , Rfl: cetirizine 10 mg oral tablet, Take 10 mg by mouth once daily., Disp: , Rfl: desogestrel-ethinyl estradiol (ENSKYCE) 0.15-0.03 mg oral tablet, Take 1 tablet by mouth on ce daily., Disp: , Rfl: ERGOCALCIFEROL (VITAMIN D2) (VITAMIN D ORAL), Take by mouth., Disp: , Rfl: fluticasone 50 mcg/actuation nasal spray,suspension, Instill 2 [...] by mouth once daily., Disp: , Rfl: History: Past Medical History: Diagnosis Date Anxiety Asthma Depression Diverticulitis Glucose intolerance (impaired glucose tolerance) HTN (hypertension) Irregular periods Morbid obesity with BMI of 40.0-44.9, adult (HCC) Pneumonia Ventral hernia, recurrent Past Surgical History Procedure Laterality Date Diagnostic laparoscopy 2009 Fallopian tube transection 2012 Ventral hernia repair with mesh 2013 Hernia repair 2014 Addition of mesh implant to ventral hernia repair 2014 Social History Social History Marital status: Spouse name: N/A Number of children: N/A Years of education: N/A Occupational History unemployed Social History Main Topics Smoking status: Former Smoker Quit date: 10/25/2006 Smokeless tobacco: Never Used Alcohol use No Drug use: No Sexual activity: Not on file Family History Problem Relation Diabetes Mother High blood pressure Mother hyperlipidemia High blood pressure Brother hyperlipidemia Allergies Brother Review of Systems: General: No symptoms of fatigue, weakness, unintentional weight loss, fevers, chills, nigh t sweats. Eyes/Ears/Nose/Throat: No visual changes, sore throat, dental pain, hoarseness, dysphagia, oral lesions. Reports tongue jewelry Respiratory: No shortness of breath, cough or wheezing, nocturnal snoring, daytime drowsin ess or morning headaches. No history of asthma. Reports exercise induced asthma uses inhaler Cardiovascular: No exertional chest pain, palpitations, syncope, orthopnea, or paroxysmal nocturnal dyspnea. No history of lower extremity edema, hyperlipidemia. No CHF, AK, ischemic heart disease, DVT/PE, or pulmonary hypertension. States able to climb two flights of stair s. Reports HTN takes atenolol. Neurologic: No neurological impairment or TIAs; diplopia, dysphasia or unilateral disturba nce of motor or sensory function. No loss of balance or vertigo, persistent headaches, or pa resthesias. No history of seizure disorder. Reports carpel tunnel Musculoskeletal: No symptoms of swelling, myalgias. Reports bilateral knee, ankle pain, s ometimes lower back Gastrointestinal: No abdominal or flank pain, anorexia, or vomiting, dysphagia, change in b owel habits, black or bloody stools. No history of ulcers. Denies persistent reflux symptoms . No history of liver disease or jaundice. Reports nausea large ventral hernia Genitourinary: No history of kidney stones. No urethral discharge, dysuria, hematuria or s ores on the genitals. No history of endometriosis or abnormal PAP's. LMP 12/08/17 . Current m ethod of control is: BCP. Reports urinary incontinence, irregular menstrual periods Skin: No intertrigenous skin infections, recent rashes, sores, or skin changes. Psychological: No thoughts of suicide or hallucinations.Reports anxiety/ depression-learnin g to meditate Heme/Lymphatic: No history of anemia, abnormal bruising, abnormal bleeding or enlarged lym ph nodes. Metabolic: No hypo or hyperthyroidism, history of diabetes, polyuria, polyphagia or polydip nisha. No history of gout. Reports borderline DM OBJECTIVE BP 149/95 | Pulse 70 | Temp (Src) 36.8 C (98.3 F) (Oral) | RR 14 | Ht 1.676 m (5' 6") | Wt 126.3 kg (278 lb 6.4 oz) | SpO2 97% | BMI 44.93 kg/(m^2) Physical exam: General: Alert and cooperative. Neuro: Oriented x 3. CN III-XII grossly intact. No focal deficits. HEENT: Oropharynx clear without lesion or exudate. Tongue piercing Neck: Neck supple. Respiratory: Good diaphragmatic excursion. Lungs clear to auscultation bilaterally. No whee zes, rales or rhonchi, able to speak in full sentences Cardiac: S1, S2, Regular rate and rhythm, no rub, murmur, gallop or bruits. No carotid brui ts noted. Extremities: No lower extremity edema. Abdomen: Obese, surgical habitus, soft, nontender, no appreciable masses or hernia. Skin: No rashes Psych: Good eye contact. Speech clear. Laboratory/Imaging Data: No data in care everywhere or media tab Impression: 1. Borderline diabetes 2. HTN takes atenolol, BP elevated cichl=134/95 3. Ventral hernia with MESH 4. Hx multiple abdominal surgeries 5. Exercise induced Asthma uses inhaler 6. Stress incontinence 7. Anxiety & depression 8. Workman's comp injury This patient meets and or exceeds NIH criteria for morbid obesity with a BMI of 44.93 and c omorbidities related to obesity including pre-Type 2 diabetes, asthma, stress urinary incont inence and hypertension which may be improved with bariatric surgery. Records have been reviewed from her PCM and several attempts have been made to lose weight over the past years without success. She qu alifies for medically necessary weight loss surgery to control co-morbidities. Sara Caballero has attended the Public Informational Session in which risks and leslie efits of bariatric surgery were discussed. Discussion of realistic expectations of bariatri c surgery was held today. A Bariatric notebook with pre-op, inter-op and post-op guidance an d information was provided for the patient today. Plan: The following has been provided to Sara Caballero This is a preliminary visit for a evaluation for bariatric surgery. There are some patients who have too many illnesses, and this elective surgery would not be safe for them. We have listed some of the potential reasons below. You can over eat ANY of the surgeries. The surgery is a tool with diet and exercise to help you obtain a healthy weight. + Dietitian consultation: Today. + Physical therapy referral for Bariatric Surgery Prehabilitation: Today + Weight Management classes: 2 classes are required in addition to your private appointme nt with the manager marketing sales. These classes will be scheduled apporoximately 1 month apart to allow time for you to put the teaching into action. + Labs needed: Lipids, CBC, CMP, TSH, A1C, PTH, Vitamin D25, ferritin, B12, TIBC & iron. Please go to the 3rd floor and have these labs done. + Pap test: Please obtain thru your primary care and we want to see the lab result from th e PAP smear. (not the note from your provider) + EKG: Please go to 9th floor today to get this done. + Pre-op Psychological Evaluation: If your referral is at [facility], The Pain Management Office will call you in the next week to schedule. + Please start taking a daily multivitamin with iron. + Insurance requirements: your insurance requires: none + Recommended weight loss: 5% wt loss goal of 14 pounds. If you are struggling with your w eight loss please call us to discuss some options. +The patient is willing to comply with the post-operative treatment plan Once the above list is completed and copies have been received by our office, we will submi t for insurance authorization then schedule with the surgeon. Yumiko Clarke DNP ACNP PATIENT SAFETY TECH Bariatric Surgery Nurse Practitioner [facility] | [address] | [place], [place] | [address] | Potential Contraindications to Bariatric Surgery Age over 69 BMI over 60 Oxygen dependence Immobility wheelchair or bed bound Cardiac issues such as ischemic heart disease as indicated on cardiac stress test or cardia c catheterization; severe or uncompensated heart failure which may be indicated by a decreas ed ejection fraction. Pulmonary issues such as untreated sleep apnea, obesity hypoventilation syndrome, severe CO PD or asthma. Liver disease such as cirrhosis, esophageal varices, or portal hypertension. Severe, untreated renal disease. Rheumatologic and other diseases requiring immune suppressant medications. Untreated or active cancer. Untreated psychological disability. If you have any of the above conditions, you may not be a candidate for bariatric surgery. Our program will perform a thorough evaluation prior to making such a determination. This evaluation may involve testing or consultations. We will make every effort to notify patien ts who are not candidates for surgery as early in the process as possible, but it is importa nt to realize that the surgeon may make that determination later in the process. Clearance for surgery by your PCP or other providers does not guarantee that the [facility] Bariatric Surger y program will deem you a surgical candidate. in this encounter Plan of Treatment +--------+---------+ [...] | | | | | | [place], [place] | | | | | | [address] | | | | | | [phone] | | | | | | | | +--------+---------+ + + + as of this encounter Results LIPID SET (TRIG, T CHOL, HDL, CALC [...] | + + + | Blood | [facility], [address] | | | [place] [address] | + + + + + | [...] | + + + | Blood | [facility], SPECIAL IMM + [address] [facility] | | | [place] [address] | + + + + + | Narrative | + + | Alternate forms of testing such as fructosamine should be considered for | | monitoring terminal system operator glycemic control in patients with: Increased red [...] characteristics | | | | determined by [employer]. See | | | | Compliance Statement B: | | | | [employer]/CSPerformed by [facility] | | | | [facility] [address] | | | | [phone].[employer], Gerardo Esquivel, | | | | , Lab. Director | | + + + + + + + | Specimen | Performing Laboratory | + + + | Blood | [facility] [address] [facility] | | | [place] [address] | + + + COMPLETE METABOLIC SET [...] | >60 | >60 mL/min | | [place] | | | + + + + | EGFR NON | >60 | >60 mL/min | | -[place] | | | + + + + [...] | + + + | Blood | [facility], CORE [address] [facility] | | | [place] [address] | + + + + + | Narrative | + + | Adult glucose reference range change effective 7-12-17. GFR is estimated using the | | [...] | | ------ CBC (HEMOGRAM) | | ONLY[[id number]] Final | | result Please view results [...] | + + + | Blood | [facility], CORE [address] [facility] | | | [place] [address] | + + + VITAMIN B-12 (01/06/2018 [...] | + + + | Blood | [facility], [address] [facility] | | | [place] [address] | + + + FERRITIN (01/06/2018 4:48 [...] | + + + | Blood | [facility], CORE [address] | | | [place] [address] | + + + PTH, SERUM (01/06/2018 4:48 PM) + +-------+ + | Component | Value | Ref Range | + +-------+ + | PTH, SERUM | 51 | 18 - 88 pg/mL | + +-------+ + + + + | Specimen | Performing Laboratory | + + + | Blood | [facility], CORE [address] | | | [place] [address] | + + + + + | [...] | + + + | Blood | [facility], CORE [address] | | | [place] [address] | + + + + + | [...] | + + + | Blood | [facility] [address] [facility] [facility] | | | [place] [address] | + + + + + | Narrative | + + | TSH reference ranges are influenced by a variety of environmental influences, age, | | gender and ethnicity. The supplied reference limits are based on published values | | utilizing a similar TSH assay, and should be interpreted with caution. | + + 12 LEAD ECG (01/06/2018 4:25 [...] Laboratory | + + + | | [facility] [address] [place] [address] | | | [facility] [place] [address] | + + + in this encounter Visit [...] | Stress incontinence in female | + +
--- OUTSIDE RECORDS SUMMARY | 2018-01-22 09:12 | XMS | Encounter Summary ---
Demographics + + + | Address | [address] | | | [place] [address] | + + + | Home Phone | | + + + | Preferred Language | Unknown | + + + | Marital Status | | + + + | Druze Affiliation | Unknown | + + + | Race | White | + + + | Ethnic Group | Not or | + + + Author + + + | Author | [facility] | + + + | Organization | [facility] | + + + | Address | Unknown | + + + | Phone | Unavailable | + + + Support + + + + + | Name | Relationship | Address | Phone | + + + + + | MAME QUINTANA | ECON | [address] | | | | | [place] | | | | | [address] | | + + + + + Care Team Providers + +------+ + | Care Data Security Coordinator Name | Role | Phone | + +------+ + | Aleshia Martinez PA-C | PCP | | + +------+ + Encounter Details +--------+ + + + + | Date | Type | Department | Care Team | Description | +--------+ + + + + | 10/26/ | Documentati | Digestive Health | Clinic, Surgery | | | 2018 | on | Center at [facility] 6th | | | | | | Floor [address] | | | | | | [place] Mailcode: [facility] | | | | | | [facility] | | | | | | and Healing, 6th | | | | | | floor [place], [place] | | | | | | [address] | | | | | | [phone] | | | +--------+ + + + [...] | | 2017 | Visit | | [address] | | | | | | [place], [place] | | | | | | [address] | | | | | | [phone] | | | | | | | | +--------+---------+ + + + as of this encounter Visit Diagnoses Not on filein this encounter"
--- OUTSIDE RECORDS SUMMARY | 2018-01-22 09:12 | XMS | Encounter Summary ---
Demographics + + + | Address | [address] | | | [place] [address] | + + + | Home Phone | | + + + | Preferred Language | Unknown | + + + | Marital Status | | + + + | Buddhist Affiliation | Unknown | + + + | Race | White | + + + | Ethnic Group | Not or | + + + Author + + + | Author | [facility] | + + + | Organization | [facility] | + + + | Address | Unknown | + + + | Phone | Unavailable | + + + Support + + + + + | Name | Relationship | Address | Phone | + + + + + | MAME QUINTANA | ECON | [address] | | | | | [place] | | | | | [address] | | + + + + + Care Team Providers + +------+ + | Care Air Bag Buffer Name | Role | Phone | + +------+ + | Aleshia Martinez PA-C | PCP | | + +------+ + Reason for Visit + + + | Reason | Comments | + + + | Referral To | | | Bariatric Surgery | | + + + Encounter Details +--------+ + + + + | Date | Type | Department | Care Team | Description | +--------+ + + + + | 10/27/ | Abstract | Digestive Health | Clinic, Surgery | Referral To | | 2017 | | Center at [facility] 6th | | Bariatric Surgery | | | | Floor [address] | | | | | | [place] Mailcode: [facility]4S | | | | | | [facility] | | | | | | and Healing, 6th | | | | | | floor [place], [place] | | | | | | [address] | | | | | | [phone] | | | +--------+ + + + [...] | | 2017 | Visit | | [facility] [address] | | | | | | [place], [place] | | | | | | [address] | | | | | | [phone] | | | | | | | | +--------+---------+ + + + as of this encounter Visit Diagnoses Not on filein this encounter"
--- OUTSIDE RECORDS SUMMARY | 2018-01-22 09:12 | XMS | Encounter Summary ---
Demographics + + + | Address | [address] | | | [place] [address] | + + + | Home Phone | | + + + | Preferred Language | Unknown | + + + | Marital Status | | + + + | Religion Affiliation | Unknown | + + + | Race | White | + + + | Ethnic Group | Not or | + + + Author + + + | Author | [facility] | + + + | Organization | [facility] | + + + | Address | Unknown | + + + | Phone | Unavailable | + + + Support + + + + + | Name | Relationship | Address | Phone | + + + + + | MAME QUINTANA | ECON | [address] | | | | | [place] | | | | | [address] | | + + + + + Care Team Providers + +------+ + | Care Wedding Cake Designer Name | Role | Phone | + +------+ + | Aleshia Martinez PA-C | PCP | | + +------+ + Reason for Visit + + + | Reason | Comments | + + + | Bariatric Nutrition | | + + + Consultation (Routine) + +--------+ + + + + | Status | Reason | Specialty | Diagnoses / | Referred By | Referred To | | | | | Procedures | Contact | Contact | + +--------+ + + + + | Pending | | Nutrition | Diagnoses | Non-[facility] | Fn | | Review | | | Umbilical | Epic Dept | Digestive Hc | | | | | hernia | | [facility] [address] | | | | | without | | [address] | | | | | obstruction | | Mailcode: | | | | | or gangrene | | [facility] | | | | | | | for Health | | | | | | | and Healing | | | | | | | [place], [place] | | | | | | | [address] | | | | | | | Phone: | | | | | | | [phone] | | | | | | | Fax: | | | | | | | [phone] | + +--------+ + + + + Encounter Details +--------+---------+ + + + | Date | Type | Department | Care Team | Description | +--------+---------+ + + + | 01/06/ | Office | Digestive Health | Chetna Alves, RD | Morbid obesity with | | 2018 | Visit | Center at [facility] 6th | [address] | BMI of 40.0-44.9, | | | | Floor [address] | [address] | adult (HCC) (Primary | | | | Ave Mailcode: | [place], [place] | Dx); Ventral hernia | | | | [facility] [place] for | [address] | with obstruction | | | | Health and Healing | | and without | | | | [place], [place] | | gangrene; Borderline | | | | [address] | | diabetes | | | | [phone] | | | +--------+---------+ + + + Social History [...] + as of this encounter Progress Notes Chetna Alves, RD - 01/06/2018 3:00 PM PDTFormatting of this note may be different from byron smith. Referring Provider: Outpatient Nutrition Clinic, Pre-Bariatric Surgery Evaluation Initial diet consultation prior to having Tobias-En-Y gastric bypass surgery or Sleeve Gastre ctomy. Documented Time of Visit: 3:10 until 4:00 (50 minutes dusb-jo-pjso with patient) SUBJECTIVE: Pt comes in alone from [facility]. Patient viewed online seminar prior to visit. What have you been doing to prepare for surgery: (research/talking to people that have had surgery/Uncle's and Facebook friend had surgery) Questions/Information desired today: nothing specific Goals & reasons why patient wants to have bariatric surgery: weight loss, recurrent hernias Food Allergies: No Food Intolerances: Yes Lactose Intolerance: Yes Emotional Eating: Boredom, sometimes - tries to choose a vegetable over fruit or nuts or dr ink water. Has been doing [employer]. Says she is alone a lot. Weight liner roll changer the past year: trying to lose Previous weight loss attempts: (every diet you can think of - HB egg, Heart Healthy, Portio n control) Are you able exercise? Yes Current Physical Exercise: Using stepper Food recall: eating more veggies, cutting back on CHO's Not currently working -has had to take time off for hernias. Lives with and dog Bkfst:oatmeal with banana, HB egg with piece of toast, bowl of cereal, granola + [place] citizen yogu rt Lunch: leftovers (because she is trying to cut down dinner portions), lettuce wrap, salad Dinner: butternut squash stuffed with hamburger and mushrooms, veggie spaghetti or zoodles Snacks: grapes, Craisins, walnuts, poprorn Beverages: Water, occ Sprite if stomach is upset, occ coffee If not following plan will eat fast food OBJECTIVE: Height: Ht Readings from Last 1 Encounters: 01/06/18 1.676 m (5' 6") Weight: Wt Readings from Last 1 Encounters: 01/06/18 126.3 kg (278 lb 6.4 oz) WEIGHT ONLY 08/18/2017 Weight (lbs) 277 lbs 2 oz Weight (kg) 125.692 kg BMI: 44.93 Past Medical History: Past Medical History: Diagnosis Date Anxiety Asthma Depression Diverticulitis Glucose intolerance (impaired glucose tolerance) HTN (hypertension) Irregular periods Morbid obesity with BMI of 40.0-44.9, adult (HCC) Pneumonia Ventral hernia, recurrent Medications: See list in Epic snap shot Pre-DM. Family Hx Dietary Supplements: Vit D (Rx + daily dose) Labs: see Results Review for current labs (if available) Nutrition Diagnosis: Obesity as evidenced by BMI of 44.93 Factors contributing to obesity: Emotional eating Lack of a regular physical activity program Food Choices Metabolic Pre-Surgery Diet: Provided written diet suggestions to help patient lose weight before surgery. -Eat within one hour of waking, then every 3-4 waking hours. Spent some time creating a me al plan together as patient said she wished someone would just tell her what to eat. -Include protein with all meals & snacks -Use healthy plate model or frozen entree (~300 calories, < 600 mg sodium) at lunch & dinn er -Begin keeping daily food logs -Choose foods & beverages with < 14 g sugar & < 5 g fat per serving -Eliminate liquid calories and carbonation; limit caffeine to 16 oz/day Discussed behavior changes to practice before surgery to prepare for surgery. -Begin fluids from meals by 30 minutes before and after -Sip fluids throughout the day, aim for 64 oz/day (non-caloric, non-caffeinated, non-carbo nated) -Begin practicing mindful eating Explore exercise program options Post-surgery diet education: Provided visual, verbal, & written information on all aspects of bariatric surgery. Discuss ed lifelong behavior changes, proper diet selections, and exercise. Encouraged patient to fo llow up with dietitian pre- or post-surgery. Written education provided: Provided and reviewed an instructional handout (bariatric surgery notebook) with the rose mary mcbride on post-surgery diet progression, sample menus, behavior modifications, food items, and vi tamin and mineral supplements needed after surgery. Emphasized the importance of a regular p hysical activity program of 30-60 minutes per day to maintain weight loss post-surgery. Patient's Comprehension: The patient is: Receptive Stage of change: Preparation Barrier(s) to education: No Learning style: Patient is a Visual learner, Verbal learner Information provided in writing, and used visual aids to demonstrate food portions post-mitchell bennie and size of stomach after surgery. Expected Outcome: I think the patient will do moderately if following all lifestyle and be havioral changes discussed today. Encouraged her to join our Facebook support group and poss ible connect with other patients that are local. Patient verbalizes understanding that surgery is a tool to help achieve and maintain weight loss but that surgery will not eliminate the problems that led to weight gain. Yes GOAL: The patient's goal is to have weight loss surgery to maintain weight loss and improve other health conditions. 1. Continue to practice behavioral changes to prepare for surgery. 2. Increase physical activity. 3. Review all information provided for post surgery diet progression in bariatric surger y notebook. Attend 2 pre-surgery classes. 4. Call or send [employer] message to dietitian with any questions. Contact information was provided. Follow up with dietitian 1-2 weeks after surgery at first post-op visit. Chetna Alves RD, [facility], LD [facility] Bariatrics [phone] in this encounter Plan of Treatment +--------+---------+ [...] | | | | | | [place], [place] | | | | | | [address] | | | | | | [phone] | | | | | | | | +--------+---------+ + + + as of this encounter Procedures + +--------+ + + + | Procedure Name | Priori | Date/Time | Associated Diagnosis | Comments | | | ty | | | | + +--------+ + + + | [place] MNT INITIAL | Routin | 01/07/2018 | [...] (HCC) - Primary | + + | Ventral hernia with obstruction and without gangrene | + + | Ventral hernia, unspecified, with obstruction | + + | Borderline diabetes | + + | Other abnormal glucose | + +
--- OUTSIDE RECORDS SUMMARY | 2018-01-22 09:12 | XMS | Encounter Summary ---
Demographics + + + | Address | [address] | | | [place] [address] | + + + | Home Phone | | + + + | Preferred Language | Unknown | + + + | Marital Status | | + + + | Jehovah'S Witness Affiliation | Unknown | + + + | Race | White | + + + | Ethnic Group | Not or | + + + Author + + + | Author | [facility] | + + + | Organization | [facility] | + + + | Address | Unknown | + + + | Phone | Unavailable | + + + Support + + + + + | Name | Relationship | Address | Phone | + + + + + | MAME QUINTANA | ECON | [address] | | | | | [place] | | | | | [address] | | + + + + + Care Team Providers + +------+ + | Care Retail Planner Name | Role | Phone | + +------+ + | Aleshia Martinez PA-C | PCP | | + +------+ + Encounter Details +--------+ + + + + | Date | Type | Department | Care Team | Description | +--------+ + + + + | 10/26/ | Documentati | Digestive Health | Clinic, Surgery | | | 2018 | on | Center at [facility] 6th | | | | | | Floor [address] | | | | | | [place] Mailcode: CH[facility]S | | | | | | [place] for [facility] | | | | | | and Healing, 6th | | | | | | floor [place], [place] | | | | | | [address] | | | | | | [phone] | | | +--------+ + + + [...] | | | | | | [place], [place] | | | | | | [address] | | | | | | [phone] | | | | | | | | +--------+---------+ + + + as of this encounter Visit Diagnoses Not on filein this encounter"
--- OUTSIDE RECORDS SUMMARY | 2018-01-22 09:12 | XMS | Encounter Summary ---
Demographics + + + | Address | [address] | | | [place] [address] | + + + | Home Phone | | + + + | Preferred Language | Unknown | + + + | Marital Status | | + + + | Mandaeism Affiliation | Unknown | + + + | Race | White | + + + | Ethnic Group | Not or | + + + Author + + + | Author | [facility] | + + + | Organization | [facility] | + + + | Address | Unknown | + + + | Phone | Unavailable | + + + Support + + + + + | Name | Relationship | Address | Phone | + + + + + | MAME QUINTANA | ECON | [address] | | | | | [place] | | | | | [address] | | + + + + + Care Team Providers + +------+ + | Care Steep Tender Name | Role | Phone | + +------+ + | Aleshia Martinez PA-C | PCP | | + +------+ + Reason for Referral Physical Therapy (Routine) + +--------+ + + + + | Status | Reason | Specialty | Diagnoses / | Referred By | Referred To | | | | | Procedures | Contact | Contact | + +--------+ + + + + | Pending | | Physical | Diagnoses | Iris | Erinn Lopez Ch | | Review | | Therapy | Morbid | Marta W, | [address] | | | | | obesity | AGACNP [address] | | | | | ([facility]) | [address] | Mailcode: | | | | | Procedures | [place], | [address] | | | | | PHYSICAL | [place] | for Health | | | | | THERAPY | [address] | and Healing, | | | | | REFERRAL | Phone: | 1st floor | | | | | | | [place], [place] | | | | | | Fax: | [address] | | | | | | [phone] | Phone: | | | | | | | [phone] | | | | | | | Fax: | | | | | | | [phone] | + +--------+ + + + + Encounter Details +--------+ + + + + | Date | Type | Department | Care Team | Description | +--------+ + + + + | 10/27/ | Office Machines Sales Representative | Digestive Health | Marta Simmons, | Morbid obesity (HCC) | | 2018 | | Center at [facility] 6th | AGACNP [address] | (Primary Dx) | | | | Floor [address] | Ave [place], [place] | | | | | Ave Mailcode: [facility]S | [address] | | | | | Center for [facility] | | | | | | and Healing, 6th | | | | | | floor [place], [place] | | | | | | [address] | | | | | | [phone] | | | +--------+ + + + [...] | | | | | | [place], [place] | | | | | | [address] | | | | | | [phone] | | | | | | | | +--------+---------+ + + + as of this encounter Visit Diagnoses + + | Diagnosis | + + | Morbid obesity (HCC) - Primary | + + | Morbid obesity | + +"
--- OUTSIDE RECORDS SUMMARY | 2018-01-22 10:53 | XMS | Encounter Summary ---
Demographics + + + | Address | [address] | | | [place] [address] | + + + | Home Phone | | + + + | Preferred Language | Unknown | + + + | Marital Status | | + + + | Mandaeism Affiliation | Unknown | + + + | Race | White | + + + | Ethnic Group | Not or | + + + Author + + + | Author | [facility] | + + + | Organization | [facility] | + + + | Address | Unknown | + + + | Phone | Unavailable | + + + Support + + + + + | Name | Relationship | Address | Phone | + + + + + | MAME QUINTANA | ECON | [address] | | | | | [place] | | | | | [address] | | + + + + + Care Team Providers + +------+ + | Care Dogman/Woman Name | Role | Phone | + [...] | 2018 | Encounter | Center at [facility] 6th | ACNP [address] | vitamin ok? | | | | Floor [address] | [address] | | | | | Ave Mailcode: CH[address]S | [place], [place] | | | | | [facility] | [address] | | | | | and , | [phone] | | | | | floor [place], [place] | | | | | | [address] | | | | | | [phone] | | | +--------+ + + + [...] | | | | | | [place] | | | | | | [address] | | | | | | [phone] | | | | | | | | +--------+---------+ + + + as of this encounter Visit Diagnoses Not on filein this encounter"
--- OUTSIDE RECORDS SUMMARY | 2018-01-22 10:53 | XMS | Clinical Summary ---
Demographics + + + | Address | [address] | | | [place] [address] | + + + | Home Phone | | + + + | Preferred Language | Unknown | + + + | Marital Status | | + + + | Scientology Affiliation | Unknown | + + + | Race | White | + + + | Ethnic Group | Not or | + + + Author + + + | Author | [facility] | + + + | Organization | [facility] | + + + | Address | Unknown | + + + | Phone | Unavailable | + + + Support + + + + + | Name | Relationship | Address | Phone | + + + + + | MAME QUINTANA | ECON | [address] | | | | | [place] | | | | | [address] | | + + + + + Care Team Providers + +------+ + | Care Quantitative Research Analyst Name | Role | Phone | + +------+ + | Aleshia Martinez PA-C | PP | | + +------+ + Source Comments CANDY is fully live on both EpicCare Ambulatory and EpicCare InPatient.[facility] Allergies + + + + + [...] | | | | | | adult ([facility]); | | | | | | Borderline [...] | | | | | | adult ([facility]) (Primary | | | | | | [...] | | | | | | adult ([facility]) (Primary | | | | | | [...] + + + + | 10/27/ | Press Manager | | [place], | Morbid obesity [...] | | | | | | [place], [place] | | | | | | [address] | | | | | | [phone] | | | | | | | [...] | + +--------+ + + + | OK THERAPEUTIC | Routin | 01/10/2018 | Morbid obesity | | | EXERCISES | e | 9:42 AM | with BMI of | | | | | PDT | 40.0-44.9, adult | | | | | | ([facility]) Essential | | | | | | hypertension | | | | | | Ventral hernia with | | | | | | obstruction and | | | | | | without gangrene | | | | | | Physical | | | | | | deconditioning | | + +--------+ + + + | [place] MNT INITIAL | Routin | 01/07/2018 | [...] + + + | Blood | [facility], CORE [address] | | | [place] [address] | + + + VITAMIN B1, WHOLE [...] characteristics | | | | determined by [employer]. See | | | | Compliance Statement B: | | | | [employer]/CSPerformed by [employer] | | | | [facility],[address] [place] [address] | | | | [phone], Gerardo Esquivel, | | | | Sushant GOMEZ. Director | | + + + + + + + | Specimen | Performing Laboratory | + + + | Blood | [facility] [address] | | | [place] [address] | + + + VITAMIN D, 25-HYDROXY, SERUM (01/06/2018 4:48 PM) + + + + | Component | Value | Ref Range | + + + + | VITAMIN D 25 HYDROXY | 18.7 (L) | 30 - 80 ng/mL | + + + + + + + | Specimen | Performing Laboratory | + + + | Blood | [facility], CORE [address] | | | [place] [address] | + + + + + | [...] | >60 | >60 mL/min | | [place] | | | + + + + | EGFR NON | >60 | >60 mL/min | | -[place] | | | + + + + [...] + + + | Blood | [facility], CORE [address] | | | [place] [address] | + + + + + | [...] | | ------ CBC (HEMOGRAM) | | [id number]] Final | | result Please view results [...] + + + | Blood | [facility], CORE [address] | | | [place] [address] | + + + PTH, SERUM (01/06/2018 4:48 PM) + +-------+ + | Component | Value | Ref Range | + +-------+ + | PTH, SERUM | 51 | 18 - 88 pg/mL | + +-------+ + + + + | Specimen | Performing Laboratory | + + + | Blood | [facility], CORE [address] | | | [place] [address] | + + + + + | [...] + + + | Blood | [facility], CORE [address] | | | [place] [address] | + + + + + | [...] + + + | Blood | [facility], CORE [address] [place] [address] | | | [place] [address] | + + + + + | [...] + + + | Blood | [facility], CORE [address] | | | [place] [address] | + + + HEMOGLOBIN A1C, BLOOD [...] + + + | Blood | [facility], SPECIAL IMM + COAG [address] | | | [place] [address] | + + + + + | Narrative | + + | Alternate forms of testing such as fructosamine should be considered for | | monitoring mcc glycemic control in patients with: Increased red [...] | + + + | Blood | [facility], CORE [address] | | | [place] [address] | + + + 12 LEAD ECG [...] Laboratory | + + + | | [facility] [address] | | | [place] [address] | + + + from Last 3 Months
--- OUTSIDE RECORDS SUMMARY | 2018-01-22 10:53 | XMS | Encounter Summary ---
Demographics + + + | Address | [address] | | | [place] [address] | + + + | Home Phone | | + + + | Preferred Language | Unknown | + + + | Marital Status | | + + + | Buddhist Affiliation | Unknown | + + + | Race | White | + + + | Ethnic Group | Not or | + + + Author + + + | Author | [facility] | + + + | Organization | [facility] | + + + | Address | Unknown | + + + | Phone | Unavailable | + + + Support + + + + + | Name | Relationship | Address | Phone | + + + + + | MAME QUINTANA | ECON | [address] | | | | | [place] | | | | | [address] | | + + + + + Care Team Providers + +------+ + | Care Funder Name | Role | Phone | + [...] | | 2017 | | Center at [facility] 6th | | Bariatric Surgery | | | | Floor [address] | | | | | | [place] Mailcode: CH[address]S | | | | | | [facility] | | | | | | and Healing, 6th | | | | | | floor [place], [place] | | | | | | [address] | | | | | | [phone] | | | +--------+ + + + [...] | | 2017 | Visit | | [facility] [address] | | | | | | [place], [place] | | | | | | [address] | | | | | | [phone] | | | | | | | | +--------+---------+ + + + as of this encounter Visit Diagnoses Not on filein this encounter"
--- OUTSIDE RECORDS SUMMARY | 2018-01-22 10:53 | XMS | Encounter Summary ---
Demographics + + + | Address | [address] | | | [place] [address] | + + + | Home Phone | | + + + | Preferred Language | Unknown | + + + | Marital Status | | + + + | Islam Affiliation | Unknown | + + + | Race | White | + + + | Ethnic Group | Not or | + + + Author + + + | Author | [facility] | + + + | Organization | [facility] | + + + | Address | Unknown | + + + | Phone | Unavailable | + + + Support + + + + + | Name | Relationship | Address | Phone | + + + + + | MAME QUINTANA | ECON | [address] | | | | | [place] | | | | | [address] | | + + + + + Care Team Providers + +------+ + | Care Agricultural Engineering Technologist Name | Role | Phone | + +------+ + | Aleshia Martinez PA-C | PCP | | + +------+ + Reason for Visit + + + | Reason | Comments | + + + | New patient | Bariatric questionnaire | | consultation | | + + + Encounter Details +--------+ + + + + | Date | Type | Department | Care Team | Description | +--------+ + + + + | 10/26/ | Documentati | Digestive Health | Yumiko Clarke, | New patient | | 2018 | on | Center at [facility] 6th | ACNP [address] | consultation | | | | Floor [address] | [address] | (Bariatric | | | | Ave Mailcode: CH4S | [place], [place] | questionnaire) | | | | [place] for [facility] | [address] | | | | | and [place], 6th | [phone] | | | | | floor [place], [place] | | | | | | [address] | | | | | | [phone] | | | +--------+ + + + [...] | | | | | | [place], [place] | | | | | | [address] | | | | | | [phone] | | | | | | | | +--------+---------+ + + + as of this encounter Visit Diagnoses Not on filein this encounter"
--- OUTSIDE RECORDS SUMMARY | 2018-01-22 10:53 | XMS | Encounter Summary ---
Demographics + + + | Address | [address] | | | [place] [address] | + + + | Home Phone | | + + + | Preferred Language | Unknown | + + + | Marital Status | | + + + | Pentecostal Affiliation | Unknown | + + + | Race | White | + + + | Ethnic Group | Not or | + + + Author + + + | Author | [facility] | + + + | Organization | [facility] | + + + | Address | Unknown | + + + | Phone | Unavailable | + + + Support + + + + + | Name | Relationship | Address | Phone | + + + + + | MAME QUINTANA | ECON | [address] | | | | | [place] | | | | | [address] | | + + + + + Care Team Providers + +------+ + | Care Painter Decorator Name | Role | Phone | + [...] [address] | | | | | ([facility]) | [address] | Mailcode: | | | | | Procedures | [place], | [address] | | | | | PHYSICAL | [place] | for Health | | | | | THERAPY | [address] | and Healing, | | | | | REFERRAL | Phone: | 1st floor | | | | | | | [place], [place] | | | | | | Fax: | [address] | | | | | | [phone] | Phone: | | | | | | | [phone] | | | | | | | Fax: | | | | | | | [phone] | + +--------+ + + + + Encounter Details +--------+ + + + + | Date | Type | Department | Care Team | Description | +--------+ + + + + | 10/27/ | Tobacco Grader | Digestive Health | Marta Simmons, | Morbid obesity (HCC) | | 2018 | | Center at [facility] 6th | AGACNP [address] | (Primary Dx) | | | | Floor [address] | Ave [place], [place] | | | | | Ave Mailcode: CH4S | [address] | | | | | Center for Health | | | | | | and Healing, 6th | | | | | | floor [place], [place] | | | | | | [address] | | | | | | [phone] | | | +--------+ + + + [...] | | | | | | [place], [place] | | | | | | [address] | | | | | | [phone] | | | | | | | | +--------+---------+ + + + as of this encounter Visit Diagnoses + + | Diagnosis | + + | Morbid obesity (HCC) - Primary | + + | Morbid obesity | + +"
--- OUTSIDE RECORDS SUMMARY | 2018-01-22 10:53 | XMS | Encounter Summary ---
Demographics + + + | Address | [address] | | | [place] [address] | + + + | Home Phone | | + + + | Preferred Language | Unknown | + + + | Marital Status | | + + + | Moravian Affiliation | Unknown | + + + | Race | White | + + + | Ethnic Group | Not or | + + + Author + + + | Author | [facility] | + + + | Organization | [facility] | + + + | Address | Unknown | + + + | Phone | Unavailable | + + + Support + + + + + | Name | Relationship | Address | Phone | + + + + + | MAME QUINTANA | ECON | [address] | | | | | [place] | | | | | [address] | | + + + + + Care Team Providers + +------+ + | Care Pharmacy Affairs Assistant Name | Role | Phone | + +------+ + | Aleshia Martinez PA-C | PCP | | + +------+ + Encounter Details +--------+ + + + + | Date | Type | Department | Care Team | Description | +--------+ + + + + | 10/26/ | Documentati | Digestive Health | Clinic, Surgery | | | 2018 | on | Center at [facility] 6th | | | | | | Floor [address] | | | | | | [place] Mailcode: CH4S | | | | | | [place] for [facility] | | | | | | and Healing, 6th | | | | | | floor [place], [place] | | | | | | [address] | | | | | | [phone] | | | +--------+ + + + [...] | | | | | | [place], [place] | | | | | | [address] | | | | | | [phone] | | | | | | | | +--------+---------+ + + + as of this encounter Visit Diagnoses Not on filein this encounter"
--- OUTSIDE RECORDS SUMMARY | 2018-01-22 10:53 | XMS | Encounter Summary ---
Demographics + + + | Address | [address] | | | [place] [address] | + + + | Home Phone | | + + + | Preferred Language | Unknown | + + + | Marital Status | | + + + | Hoahaoism Affiliation | Unknown | + + + | Race | White | + + + | Ethnic Group | Not or | + + + Author + + + | Author | [facility] | + + + | Organization | [facility] | + + + | Address | Unknown | + + + | Phone | Unavailable | + + + Support + + + + + | Name | Relationship | Address | Phone | + + + + + | MAME QUINTANA | ECON | [address] | | | | | [place] | | | | | [address] | | + + + + + Care Team Providers + +------+ + | Care Fire Extinguisher Inspector Name | Role | Phone | + [...] | | | | hernia | | [facility] [address] | | | | | without | | [address] | | | | | obstruction | | Mailcode: | | | | | or gangrene | | [facility] | | | | | | | for Health | | | | | | | and Healing | | | | | | | [place], [place] | | | | | | | [address] | | | | | | | Phone: | | | | | | | [phone] | | | | | | | Fax: | | | | | | | [phone] | + +--------+ + + + + Encounter Details +--------+---------+ + + + | Date | Type | Department | Care Team | Description | +--------+---------+ + + + | 01/06/ | Office | Digestive Health | Chetna Alves, RD | Morbid obesity with | | 2018 | Visit | Center at [facility] 6th | [address] | BMI of 40.0-44.9, | | | | Floor [address] | [address] | adult (HCC) (Primary | | | | Ave Mailcode: | [place], [place] | Dx); Ventral hernia | | | | [facility] [place] for | [address] | with obstruction | | | | Health and Healing | | and without | | | | [place], [place] | | gangrene; Borderline | | | | [address] | | diabetes | | | | [phone] | | | +--------+---------+ + + + [...] of Visit: 3:10 until 4:00 (50 minutes pdze-tu-xwre with patient) SUBJECTIVE: Pt comes in alone from [facility]. Patient viewed online seminar prior to [...] or dr ink water. Has been doing [employer] craReacción. Says she is alone a lot. 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 4. Call or send [employer] message to dietitian with any questions. Contact information was provided. Follow up with dietitian 1-2 weeks after surgery at first post-op visit. [address]tna Alves RD, [facility], [facility] Bariatrics [phone] in this encounter Plan of Treatment +--------+---------+ [...] | | | | | | [place], [place] | | | | | | [address] | | | | | | [phone] | | | | | | | | +--------+---------+ + + + as of this encounter Procedures + +--------+ + + + | Procedure Name | Priori | Date/Time | Associated Diagnosis | Comments | | | ty | | | | + +--------+ + + + | MS MNT INITIAL | Routin | 01/07/2018 | [...]
--- OUTSIDE RECORDS SUMMARY | 2018-01-22 10:53 | XMS | Encounter Summary ---
Demographics + + + | Address | [address] | | | [place] [address] | + + + | Home Phone | | + + + | Preferred Language | Unknown | + + + | Marital Status | | + + + | Catholic Affiliation | Unknown | + + + | Race | White | + + + | Ethnic Group | Not or | + + + Author + + + | Author | [facility] | + + + | Organization | [facility] | + + + | Address | Unknown | + + + | Phone | Unavailable | + + + Support + + + + + | Name | Relationship | Address | Phone | + + + + + | MAME QUINTANA | ECON | [address] | | | | | [place] | | | | | [address] | | + + + + + Care Team Providers + +------+ + | Care Molding Cutter Name | Role | Phone | + +------+ + | Aleshia Martinez PA-C | PCP | | + +------+ + Encounter Details +--------+ + + + + | Date | Type | Department | Care Team | Description | +--------+ + + + + | 01/07/ | Telephone | Digestive Health | Yumiko Clarke, | | | 2017 | | Center at [facility] 6th | [facility] [address] [facility] | | | | | Floor [address] | [facility] | | | | | Avmayte Mailcode: CH4S | [place], [place] | | | | | [place] for [facility] | [address] | | | | | and Rohini, [facility] | [phone] | | | | | floor [place], [place] | | | | | | [address] | | | | | | [phone] | | | +--------+ + + + [...] | 2017 | Visit | | PhD [address] | | | | | | [place], [place] | | | | | | [address] | | | | | | [phone] | | | | | | | [...]
--- OUTSIDE RECORDS SUMMARY | 2018-01-22 10:53 | XMS | Encounter Summary ---
Demographics + + + | Address | [address] | | | [place] [address] | + + + | Home Phone | | + + + | Preferred Language | Unknown | + + + | Marital Status | | + + + | Zoroastrian Affiliation | Unknown | + + + | Race | White | + + + | Ethnic Group | Not or | + + + Author + + + | Author | [facility] | + + + | Organization | [facility] | + + + | Address | Unknown | + + + | Phone | Unavailable | + + + Support + + + + + | Name | Relationship | Address | Phone | + + + + + | MAME QUINTANA | ECON | [address] | | | | | [place] | | | | | [address] | | + + + + + Care Team Providers + +------+ + | Care Labor Economist Name | Role | Phone | + [...] Ave | | | | | ([facility]) | [address] | Mailcode: | | | | | Procedures | [place], | [address] | | | | | PHYSICAL | [place] | for Health | | | | | THERAPY | [address] | and Healing, | | | | | REFERRAL | Phone: | 1st floor | | | | | | [phone] | [place], [place] | | | | | | Fax: | [address] | | | | | | [phone] | Phone: | | | | | | | [phone] | | | | | | | Fax: | | | | | | | [phone] | + +--------+ + + + + Encounter Details +--------+---------+ + + + | Date | Type | Department | Care Team | Description | +--------+---------+ + + + | 01/06/ | Office | Rehabilitation | Nesha Hannon, PT | Morbid obesity with | | 2018 | Visit | Services at [facility] 1st | [address] | BMI of 40.0-44.9, | | | | Floor [address] | [address] [place], | adult (HCC) (Primary | | | | Ave Mailcode: CH3P | [place] [address] | Dx); Essential | | | | [place] for [facility] | [phone] | hypertension; | | | | and Healing, 1st | | Ventral hernia with | | | | floor [place], [place] | | obstruction and | | | | [address] | | without gangrene; | | | | [phone] | | Physical | | | | [...] + as of this encounter Progress Notes Nesha Hannon, PT - 01/06/2018 1:00 PM PDTFormatting of this note may be different from byron smith. Insurance: Payor: WORKERS COMP OTHER / Plan: WORKERS COMP OTHER / Product Type: Workers Com p / Non-Medicare [facility] PHYSICAL THERAPY EVALUATION Past Medical History: Diagnosis [...] pain is not a significant clinical problem [facility] PHYSICAL THERAPY EVALUATION History of Presenting Problem: [...] Moderate - Moderate complexity Complexity: Moderate - [address] The patient requires services that can be [...] status. NESHA HANNON, PT REHABILITATION SERVICES AT [facility] 1ST FLOOR Scheduled Appointment time: 1:00 PM [...] 1 Referral information Authorizing Provider: MARY ADAMS [[id number]] Onset/Referral Date: 10/27/17 Primary/Referral Diagnosis: E66.01, Z68.41 Morbid obesity with BMI of 40.0-44.9, adult (H CC) I10 Essential hypertension K43.6 Ventral hernia with obstruction and without gangrene R53.81 Physical deconditioning Start of care: 01/06/2018 Service period from: 01/06/2018 to: - Next progress report 02/05/2018 Insurance: Payor: WORKERS COMP OTHER / Plan: WORKERS COMP OTHER / Product Type: ReaLync p / G-code:- code not needed. Number [...] | | | | | | [place], [place] | | | | | | [address] | | | | | | [phone] | | | | | | | | +--------+---------+ + + + as of this encounter Procedures + +--------+ + + + | Procedure Name | Priori | Date/Time | Associated Diagnosis | Comments | | | ty | | | | + +--------+ + + + | [facility] | Routin | 01/10/2018 | Morbid [...]
--- OUTSIDE RECORDS SUMMARY | 2018-01-22 10:53 | XMS | Encounter Summary ---
Demographics + + + | Address | [address] | | | [place] [address] | + + + | Home Phone | | + + + | Preferred Language | Unknown | + + + | Marital Status | | + + + | Baptist Affiliation | Unknown | + + + | Race | White | + + + | Ethnic Group | Not or | + + + Author + + + | Author | [facility] | + + + | Organization | [facility] | + + + | Address | Unknown | + + + | Phone | Unavailable | + + + Support + + + + + | Name | Relationship | Address | Phone | + + + + + | MAME QUINTANA | ECON | [address] | | | | | [place] | | | | | [address] | | + + + + + Care Team Providers + +------+ + | Care Programming Development Project Manager Name | Role | Phone | + [...] | Pain | Diagnoses | Vince, | Wave Guide Assembler Psych | | | | Management | Morbid | BIJAL Calderon | [facility] [address] | | | | | obesity with | [address] | | | | | BMI of | [address] | Mail Code: | | | | | 40.0-44.9, | Shahla Sepulveda | CH15P Center | | | | | adult (HCC) | [place], [place] | for Health | | | | | Borderline | [address] | and Healing, | | | | | diabetes | Phone: | 15th Floor | | | | | Essential | [phone] | [place], [place] | | | | | hypertension | Fax: | [address] | | | | | Mild | [phone] | Phone: | | | | | intermittent | | [phone] | | | | | asthma | | Fax: | | | | | without | | [phone] | | | | | complication | [...] Dalton, | Bariatric | | | with LEAD INSTALLER | | obesity | Ganesh Holden MD | Surg [facility] | | | | | (HCC) | [address] | [address] | | | | | Procedures | [address] | [place] | | | | | CONSULT TO | Shahla Sepulveda | Mailcode: | | | | | BARIATRIC | [place], [place] | [address] | | | | | SURGERY | [address] | for Health | | | | | | Phone: | and Healing, | | | | | | [phone] | [facility] floor | | | | | | Fax: | [place], [place] | | | | | | [phone] | [address] | | | | | | | Phone: | | | | | | | [phone] | | | | | | | Fax: | | | | | | | [phone] | + + + + + + + Encounter Details +--------+---------+ + + + | Date | Type | Department | Care Team | Description | +--------+---------+ + + + | 01/06/ | Office | Digestive Health | Yumiko Clarke, | Morbid obesity with | | 2018 | Visit | Center at [facility] 6th | [facility] [address] | BMI of 40.0-44.9, | | | | Floor [address] | [address] | adult ([facility]) (Primary | | | | Ave Mailcode: [facility] | [place], [place] | Dx); Borderline | | | | [place] for Health | [address] | diabetes; Essential | | | | and Healing, 6th | [phone] | hypertension; Mild | | | | floor [place], [place] | | intermittent asthma | | | | [address] | | without | | | | [phone] | | complication; | | | | [...] diabetes 2. HTN takes atenolol, BP elevated iclni=304/95 3. Ventral hernia with MESH 4. Hx [...] to your private appointme nt with the account executive. These classes will be scheduled apporoximately 1 [...] Psychological Evaluation: If your referral is at [facility], The Pain Management Office will call [...] surgeon. Yumiko PARSONS Bariatric Surgery Nurse Practitioner [facility] | [address] | [place], [place] | [address] | Potential Contraindications to Bariatric Surgery Age [...] other providers does not guarantee that the [facility] Bariatric Surger y program will deem you a surgical candidate. in this encounter Progress Notes Yumiko Clarke ACNP - 01/06/2018 2:05 PM PDTFormatting of this note may be different from the original. BARIATRIC INITIAL VISIT Provider: Yumiko APPIAH URGENT CARE PHYSICIAN Referring Provider: Aleshia Martinez PA-C Reason for [...] doesn't like side effects Transthoracic ECHO: no Baptist or cultural reason you would refuse blood [...] of lower extremity edema, hyperlipidemia. No CHF, NE, ischemic heart disease, DVT/PE, or pulmonary hypertension. [...] diabetes 2. HTN takes atenolol, BP elevated apmuo=671/95 3. Ventral hernia with MESH 4. Hx [...] to your private appointme nt with the account executive. These classes will be scheduled apporoximately 1 [...] Psychological Evaluation: If your referral is at [facility], The Pain Management Office will call [...] with the surgeon. Yumiko Clarke DNP ACNP URGENT CARE PHYSICIAN Bariatric Surgery Nurse Practitioner [facility] | [address] | [place], [place] | [address] | Potential Contraindications to Bariatric Surgery Age [...] other providers does not guarantee that the [facility] Bariatric Surger y program will deem [...] | | | | | | [place], [place] | | | | | | [address] | | | | | | [phone] | | | | | | | [...] | + + + | Blood | [facility] SERVICES, [address] | | | [place] [address] | + + + + + | [...] | + + + | Blood | [facility], SPECIAL IMM + COAG [address] [address] | | | [place] [address] | + + + + + | Narrative | + + | Alternate forms of testing such as fructosamine should be considered for | | monitoring creping machine operator glycemic control in patients with: Increased [...] characteristics | | | | determined by Letsgofordinner. See | | | | Compliance Statement B: | | | | RECUPYL/CSPerformed by Sprig | | | | [facility] [address] | | | | [phone].RECUPYL, Gerardo Esquivel, | | | | , Lab. Director | | + + + + + + + | Specimen | Performing Laboratory | + + + | Blood | [facility] [address] | | | [place] [address] | + + + COMPLETE METABOLIC SET [...] | >60 | >60 mL/min | | SAUDI ARABIAN | | | + + + + | EGFR NON | >60 | >60 mL/min | | -SAUDI ARABIAN | | | + + + + [...] | + + + | Blood | [facility]ORY [facility], CORE [address] | | | [place] [address] | + + + + + | [...] | | ------ CBC (HEMOGRAM) | | ONLY[[id number]] Final | | result Please view results [...] | + + + | Blood | [facility], CORE [address] [facility] [address] | | | [place] [address] | + + + VITAMIN B-12 (01/06/2018 [...] | + + + | Blood | [facility], CORE [address] | | | [place] [address] | + + + FERRITIN (01/06/2018 4:48 [...] | + + + | Blood | [facility], CORE [address] | | | [place] [address] | + + + PTH, SERUM (01/06/2018 4:48 PM) + +-------+ + | Component | Value | Ref Range | + +-------+ + | PTH, SERUM | 51 | 18 - 88 pg/mL | + +-------+ + + + + | Specimen | Performing Laboratory | + + + | Blood | [facility], CORE [address] | | | [place] [address] | + + + + + | [...] | + + + | Blood | [facility], CORE [address] | | | [place] [address] | + + + + + | [...] | + + + | Blood | [facility]ORY [facility] [address] | | | [place] [address] | + + + + + | [...] | + + + | | [facility] [address] [place] [address] | | | [address] [facility] [address] | + + + in this encounter [...]
--- OUTSIDE RECORDS SUMMARY | 2018-01-22 10:53 | XMS | Encounter Summary ---
Demographics + + + | Address | [address] | | | [place] [address] | + + + | Home Phone | | + + + | Preferred Language | Unknown | + + + | Marital Status | | + + + | Yazdanism Affiliation | Unknown | + + + | Race | White | + + + | Ethnic Group | Not or | + + + Author + + + | Author | [facility] | + + + | Organization | [facility] | + + + | Address | Unknown | + + + | Phone | Unavailable | + + + Support + + + + + | Name | Relationship | Address | Phone | + + + + + | MAME QUINTANA | ECON | [address] | | | | | [place] | | | | | [address] | | + + + + + Care Team Providers + +------+ + | Care Sewing Machine Operator Semiautomatic Name | Role | Phone | + +------+ + | Aleshia Martinez PA-C | PCP | | + +------+ + Encounter Details +--------+ + + + + | Date | Type | Department | Care Team | Description | +--------+ + + + + | 10/26/ | Documentati | Digestive Health | Clinic, Surgery | | | 2018 | on | Center at [facility] 6th | | | | | | Floor [address] | | | | | | [place] Mailcode: CH4S | | | | | | [place] for [facility] | | | | | | and Healing, 6th | | | | | | floor [place], [place] | | | | | | [address] | | | | | | [phone] | | | +--------+ + + + [...] | | | | | | [place], [place] | | | | | | [address] | | | | | | [phone] | | | | | | | | +--------+---------+ + + + as of this encounter Visit Diagnoses Not on filein this encounter"
--- OUTSIDE RECORDS SUMMARY | 2018-01-22 10:53 | XMS | Encounter Summary ---
Demographics + + + | Address | [address] | | | [place] [address] | + + + | Home Phone | | + + + | Preferred Language | Unknown | + + + | Marital Status | | + + + | Latter-Day Affiliation | Unknown | + + + | Race | White | + + + | Ethnic Group | Not or | + + + Author + + + | Author | [facility] | + + + | Organization | [facility] | + + + | Address | Unknown | + + + | Phone | Unavailable | + + + Support + + + + + | Name | Relationship | Address | Phone | + + + + + | MAME QUINTANA | ECON | [address] | | | | | [place] | | | | | [address] | | + + + + + Care Team Providers + +------+ + | Care Machine Shorthand Reporter Name | Role | Phone | + +------+ + | Aleshia Martinez PA-C | PCP | | + +------+ + Encounter Details +--------+------+ + + + | Date | Type | Department | Care Team | Description | +--------+------+ + + + | 01/06/ | Lab | Laboratory at [facility] | | Morbid obesity with | | 2017 | | 3rd Floor [address] | | BMI of 40.0-44.9, | | | | [address] [place], | | adult ([facility]); | | | | [place] [address] | | Borderline diabetes; | | | | [phone] | | Essential | | | | [...] | | | | | | [place], [place] | | | | | | [address] | | | | | | [phone] | | | | | | | [...] | + + + | Blood | [facility], CORE [address] | | | [place] [address] | + + + LIPID SET (TRIG, [...] | + + + | Blood | [facility], CORE [address] | | | [place] [address] | + + + + + | [...] | + + + | Blood | [facility], SPECIAL IMM + COAG [address] | | | [place] [facility] [place] [address] | + + + + + | Narrative | + + | Alternate forms of testing such as fructosamine should be considered for | | monitoring long term acute care registered nurse glycemic control in patients with: Increased red [...] characteristics | | | | determined by Jaeger. See | | | | Compliance Statement B: | | | | [employer]/CSPerformed by [facility] | | | | [facility],[address] [place] [address] | | | | [phone].[employer], Gerardo Esquivel, | | | | Sushant GOMEZ. Director | | + + + + + + + | Specimen | Performing Laboratory | + + + | Blood | [facility] [address] | | | [place] [address] | + + + COMPLETE METABOLIC SET [...] | >60 | >60 mL/min | | RUSSIAN | | | + + + + | EGFR NON | >60 | >60 mL/min | | -RUSSIAN | | | + + + + [...] | + + + | Blood | [facility], [facility] [place] [address] | | | [place] [address] | + + + + + | [...] | | ------ CBC (HEMOGRAM) | | ONLY[[id number]] Final | | result Please view results [...] | + + + | Blood | [facility], CORE [address] | | | [place] [address] | + + + VITAMIN B-12 (01/06/2018 [...] | + + + | Blood | [facility], CORE [address] | | | [place] [address] | + + + FERRITIN (01/06/2018 4:48 [...] | + + + | Blood | [facility], CORE [address] | | | [place] [address] | + + + PTH, SERUM (01/06/2018 4:48 PM) + +-------+ + | Component | Value | Ref Range | + +-------+ + | PTH, SERUM | 51 | 18 - 88 pg/mL | + +-------+ + + + + | Specimen | Performing Laboratory | + + + | Blood | [facility], CORE [address] | | | [place] [address] | + + + + + | [...] | [facility], CORE [address] | | | [place] [address] | + + + + + | [...] | + + + | Blood | [facility], CORE [address] | | | [place] [address] | + + + + + | [...]
--- OUTSIDE RECORDS SUMMARY | 2018-01-22 10:53 | XMS | Encounter Summary ---
Demographics + + + | Address | [address] | | | [place] [address] | + + + | Home Phone | | + + + | Preferred Language | Unknown | + + + | Marital Status | | + + + | Restorationism Affiliation | Unknown | + + + | Race | White | + + + | Ethnic Group | Not or | + + + Author + + + | Author | [facility] | + + + | Organization | [facility] | + + + | Address | Unknown | + + + | Phone | Unavailable | + + + Support + + + + + | Name | Relationship | Address | Phone | + + + + + | MAME QUINTANA | ECON | [address] | | | | | [place] | | | | | [address] | | + + + + + Care Team Providers + +------+ + | Care Rn Hemodialysis Name | Role | Phone | + [...] | 2018 | on | Center at [facility] 6th | ACNP [address] | consultation | | | | Floor [address] | [address] | (Bariatric | | | | Ave Mailcode: CH4S | [place], [place] | questionnaire) | | | | [place] [facility] | [address] | | | | | and [address], 6th | [phone] | | | | | floor [place], [place] | | | | | | [address] | | | | | | [phone] | | | +--------+ + + + [...] | | | | | | [place], [place] | | | | | | [address] | | | | | | [phone] | | | | | | | | +--------+---------+ + + + as of this encounter Visit Diagnoses Not on filein this encounter"
--- NOTE | 2018-01-22 17:13 | CONS ---
[facility] [address] [place], [place] [address] Signed DATE OF CONSULTATION: 01/22/2018 CONSULTING PHYSICIAN: Bridget Hodges MD PROBLEM: Complex recurrent incisional hernia. HISTORY OF PRESENT ILLNESS: This 32-year-old morbidly obese white woman has a complex hernia history. She had a low midline incision for tubal excision in [place] several years ago, which resulted in a hernia. A hernia repair was undertaken in [place] with implantation of mesh. At some point, a gangrenous changes of the abdominal wall with infection and abscess were noted and mesh was explanted and drainage undertaken. Subsequently, she had repair of the fascial defect with mesh implant once again, ultimately culminating in failure of the mesh. She attributed this to a work related problem and she is under a worker's comp claim in that regard. She presented to the emergency room today and evaluated by Dr. Sparks with lower abdominal pain, which she attributed to be related to the hernia. A CT scan was obtained by Dr. Sparks, which showed bowel loops within a hernia in the suprapubic area. She has marked abdominal obesity. She has already been evaluated for this hernia anticipating repair, but only after she has lost weight. This was evaluated and treatment anticipated at [facility]. Notably, her requirement of weight loss has also been accompanied by a planned for a gastric sleeve resection to assist in her weight loss efforts. This is anticipated for late summer. At present, the patient has no nausea or vomiting. She has no pain upon supine position and is considered to have the hernia easily reducible. PHYSICAL EXAMINATION: GENERAL: Pleasant, obese, white woman, who is accompanied by her friend. She is nontoxic. NECK: Trachea is midline. CHEST: Shows normal respiratory excursion. HEART: Pulse is regular. ABDOMEN: Markedly obese. Palpation of the lower abdomen shows a low midline incision that is easily palpable. A hernia is easily identified and easily reduced. There is no specific tenderness to the area at this time. Electronically Signed By: BRIDGET HODGES MD 01/22/18 1713 PATIENT NAME: PATTI FREIRE CONSULTATION DATE OF : 89 REPORT #: [id number] PHYSICIAN: BRIDGET HODGES MD PCP: SOURAV PAINTER PA-C REPORT IS CONFIDENTIAL AND NOT TO BE RELEASED WITHOUT AUTHORIZATION [facility] [address] [place], [place] [address] Signed DIAGNOSTIC STUDIES: I have reviewed the CT scan in detail. This shows the fascial defect and what appears to be some residual mesh noted. There are bowel loops outside the fascial edge, but without sign of obstruction per se. ASSESSMENT: She has a complex incisional hernia for which repair is anticipated and planned. She has no evidence of incarceration or bowel obstruction at this time. Certainly, her efforts at weight loss anticipating repair are gentile, as the chance of recurrent hernia under the circumstances currently noted are high. I have discussed with her an option to proceed to operation at this time. However, she prefers to wait and follow her plan of weight loss and elective repair at [facility] as already anticipated. I believe this to be safe as there is no true sign of bowel obstruction and certainly no clinical evidence of incarceration or tenderness at this time. If things should change in particular, if the hernia should be nonreducible, should she develops some signs of bowel obstruction and so forth, then operative management would be required on emergent basis. She understands this as well. I reviewed this with Dr. Sparks, who concurs. MD ANASTASIA Nielsen/MANDI /[id number] Copies: ~ Electronically Signed By: BRIDGET HODGES MD 01/22/18 1713 PATIENT NAME: PATTI FREIRE BERTA CONSULTATION DATE OF : 89 REPORT #: [id number] PHYSICIAN: BRIDGET HODGES MD PCP: SOURAV PAINTER PA-C REPORT IS CONFIDENTIAL AND NOT TO BE RELEASED WITHOUT AUTHORIZATION
[2018-02-17] MEDS ORDERED: FLINTSTONES CO1 EACH PO (09:23)
[2018-02-17] MEDS ORDERED: VITAMIN C500 M4 PO (09:24)
[2018-02-17] MEDS ORDERED: VITAMIN D31000 UNI1 PO (09:25)
== END 2018-01-22 14:03 | disposition home or self-care (01) ==
LOC: ED 07:58
DX: K43.2 Incisional hernia without obstruction or gangrene (principal); I10 Essential (primary) hypertension; Z91.041 Radiographic dye allergy status; Z91.040 Latex allergy status; Z88.6 Allergy status to analgesic agent; Z79.899 Other long term (current) drug therapy
CPT/HCPCS: 74176; 80053; 81001; 83690; 84703; 85025; 96374; 96375; 96376; 99284; J2270; J2405; J7030

== ENCOUNTER 2018-02-25 06:42 | Day surgery (SDC) | payer BC ==
[~2018-02-25] VITALS: Ht 167.6 cm; Wt 124.3 kg
[~2018-02-25 06:42] MED LIST: ATENOLOL50 MG PO; FLINTSTONES CO1 EACH PO; PROBIOTIC1 EAC4 PO; SERTRALINE HCL50 MG PO; VITAMIN C500 M4 PO; VITAMIN D250000 UNIT PO; VITAMIN D31000 UNI1 PO
--- NOTE | 2018-02-25 09:27 | NUR ---
PT SUPPORTED BY SIG. SANTINO VILCHIS. PT ADMITTED THAT SHE WAS A LITTLE NERVOUS. SHE SEEMED ALERT AND ORIENTED-APPEARED TO RELAX SOME I OUTLINED THE MORNING FOR HER. PT REQUESTED PRAYER, WILL FOLLOW NEEDED
--- NOTE | 2018-02-25 10:34 | NUR ---
02/25/18 1034 Joselyn Max 1030 PATIENT ARRIVES TO PACU, AWAKE OFF/ON. RESP EVEN AND UNLABORED. OXYMASK AT 4 LITERS, CHANGED TO ROOM AIR ON ARRIVAL, 97%.
--- NOTE | 2018-02-26 08:27 | OR ---
[facility] [address] [place], [place] [address] Signed DATE OF OPERATION: 02/25/2018 SURGEON: Cayla Rosas MD PREOPERATIVE DIAGNOSIS: Left breast skin lesion/cyst (lower inner quadrant). POSTOPERATIVE DIAGNOSIS: Left breast skin lesion/cyst (lower inner quadrant). PROCEDURE: Excision of skin lesion (1 cm). ESTIMATED BLOOD LOSS: None. INDICATIONS: Patti is a 32-year-old female, who has had trouble with a cyst on the left breast at the 7 o'clock position just lateral to the left nipple areolar complex. She is not sure how long she has had it. She hot compresses and antibiotics and nothing has worked. She was finally referred to my office as a general surgeon. Her recent mammogram was unremarkable. I explained to Patti, this is a cyst involving her skin. We talked about excising this in the office under local anesthetic. She said that she needed to be sedated during the procedure. Consequently, we brought her over the hospital under monitored anesthesia care while we excised her cyst. She understands the elliptical nature of the incision in order to excise the cyst. There is risk of surgery including, but not limited to, bleeding, infection, scarring, change in contour of the skin as well as possible need for additional surgeries based on pathology results. She had expressed understanding and wished to proceed. PROCEDURE NOTE: I met with Patti in the preop area with our nurse and we were able to easily identify her lesion and marked that appropriately. After this, Patti was taken into the operating room and placed in the supine position under monitored anesthesia care. She was given preoperative antibiotics along with subcutaneous heparin. SCDs were utilized. She was then prepped and draped in the usual sterile fashion. We injected local anesthetic in and around the lesion. An elliptical incision was made around the lesion in order to remove a full thickness. After this, the dermis was reapproximated with interrupted 3-0 subcuticular Monocryl sutures. The skin edges were reapproximated with a running 6-0 fast absorbing plain gut suture. Dry gauze and tape were then applied. Patti was then Electronically Signed By: CAYLA ROSAS MD 02/26/18 0827 PATIENT NAME: PATTI FREIRE OPERATIVE REPORT DATE OF : 89 REPORT #: [id number] PHYSICIAN: CAYLA ROSAS MD PCP: ALESHIA PAINTER PA-C REPORT IS CONFIDENTIAL AND NOT TO BE RELEASED WITHOUT AUTHORIZATION [address] [address] Signed taken into recovery room in stable condition. MD EDWIN Sloan/MANDI /[id number] cc: MD Aleshia Sloan PA-C Copies: CAYLA ROSAS MD, CHLOE K PA-C ~ Electronically Signed By: CAYLA ROSAS MD 02/26/18 0827 PATIENT NAME: ROSYMITZI PATTI QUIN[place]NA OPERATIVE REPORT DATE OF : 89 REPORT #: [id number] PHYSICIAN: CAYLA ROSAS MD PCP: ALESHIA PAINTER PA-C REPORT IS CONFIDENTIAL AND NOT TO BE RELEASED WITHOUT AUTHORIZATION
== END 2018-02-25 11:10 | disposition home or self-care (01) ==
LOC: DS 06:42
PROVIDERS: Colon & Rectal Surgery
PROC: 0HBU0ZZ Excision of Left Breast, Open Approach (ICD-10-PCS; principal; 2018-02-25 09:45)
DX: L72.0 Epidermal cyst (principal); L08.9 Local infection of the skin and subcutaneous tissue, unspecified; L90.5 Scar conditions and fibrosis of skin; I10 Essential (primary) hypertension; F41.9 Anxiety disorder, unspecified; F32.9 Major depressive disorder, single episode, unspecified; E55.9 Vitamin D deficiency, unspecified; J45.909 Unspecified asthma, uncomplicated; Z91.040 Latex allergy status; Z91.041 Radiographic dye allergy status; Z88.8 Allergy status to other drugs, medicaments and biological substances; Z79.899 Other long term (current) drug therapy; Z87.891 Personal history of nicotine dependence
CPT/HCPCS: 00404; J0690; J1644; J2250; J2704; J2765; J3010; J7120

== ENCOUNTER 2019-01-29 18:44 | Emergency (ER) | payer BC ==
[~2019-01-29] VITALS: Ht 167.6 cm; Wt 94.8 kg
--- OUTSIDE RECORDS SUMMARY | ~2019-01-29 | XMS | Encounter Summary ---
Demographics + + + | Address | [address] | | | [place] [address] | + + + | Home Phone | | + + + | Preferred Language | Unknown | + + + | Marital Status | | + + + | Zoroastrian Affiliation | CHR | + + + | Race | White | + + + | Ethnic Group | Not or | + + + Author + + + | Author | [facility] | + + + | Organization | [facility] | + + + | Address | Unknown | + + + | Phone | Unavailable | + + + Support + + + + + | Name | Relationship | Address | Phone | + + + + + | MAME QUINTANA | ECON | [address] | | | | | [place] | | | | | [address] | | + + + + + Care Team Providers + +------+ + | Care Whip Sawyer Name | Role | Phone | + +------+ + | Aleshia Martinez PA-C | PCP | | + +------+ + Reason for Visit + + + | Reason | Comments | + + + | Refill Request | | + + + Encounter Details +--------+--------+ + + + | Date | Type | Department | Care Team | Description | +--------+--------+ + + + | 03/05/ | Refill | Digestive Health | Gildardo Downing, | Refill Request | | 2019 | | Center at [facility] 6[facility] | MD [address] | | | | | Floor [address] | [place], [place] | | | | | Ave Mailcode: CH4S | [address] | | | | | [facility] | | | | | | and [facility], 6th | | | | | | floor [place], [place] | | | | | | [address] | | | | | | [phone] | | | +--------+--------+ + + + [...] + + + as of this encounter Functional Status + [...] | | | + + + + as of this encounter Plan of Treatment +--------+---------+ + + + | Date | Type | Specialty | Care Team | Description | +--------+---------+ + + + | 03/15/ | Office | Nutrition | [address] | | | 2018 | Visit | | [address] | | | | | | [place], | | | | | | [place] [address] | | +--------+---------+ + + + | 03/15/ | Office | Surgery | Marta Simmons, | | | 2018 | Visit | | AGACNP [address] | | | | | | [place], [place] | | | | | | [address] | | | | | | [phone] | | | | | | | | +--------+---------+ + + + as of this encounter Visit Diagnoses Not on filein this encounter"
--- OUTSIDE RECORDS SUMMARY | ~2019-01-29 | XMS | Encounter Summary ---
Demographics + + + | Address | [address] | | | [place] [address] | + + + | Home Phone | | + + + | Preferred Language | Unknown | + + + | Marital Status | | + + + | Adventism Affiliation | CHR | + + + | Race | White | + + + | Ethnic Group | Not or | + + + Author + + + | Author | [facility] | + + + | Organization | [facility] | + + + | Address | Unknown | + + + | Phone | Unavailable | + + + Support + + + + + | Name | Relationship | Address | Phone | + + + + + | MAME QUINTANA | ECON | [address] | | | | | [place] | | | | | [address] | | + + + + + Care Team Providers + +------+ + | Care Contracts Officer Name | Role | Phone | + +------+ + | Aleshia Martinez PA-C | PCP | | + +------+ + Encounter Details +--------+ + + + + | Date | Type | Department | Care Team | Description | +--------+ + + + + | 01/17/ | MyChart | Digestive Health | Gildardo Downing, | RE: RE: Omeprazole | | 2019 | Encounter | Center at [facility] 6[facility] | [address] | | | | | Floor [address] | [place], [place] | | | | | [place] Mailcode: CH4S | [address] | | | | | [facility] | | | | | | and [place], 6th | | | | | | floor [place], [place] | | | | | | [address] | | | | | | | [...] | [address] | | | 2019 | Visit | | [address] | | | | | | [place], | | | | | | [place] [address] | | +--------+---------+ + + + | 03/15/ | Office | Surgery | Marta Simmons, | | | 2019 | Visit | | AGACNP [address] | | | | | | [place] | | | | | | [address] | | | | | | [phone] | | | | | | | | +--------+---------+ + + + as of this encounter Visit Diagnoses Not on filein this encounter"
--- OUTSIDE RECORDS SUMMARY | ~2019-01-29 | XMS | Clinical Summary ---
Demographics + + + | Address | [address] | | | [place] [address] | + + + | Home Phone | | + + + | Preferred Language | Unknown | + + + | Marital Status | | + + + | Yazidi Affiliation | CHR | + + + | Race | White | + + + | Ethnic Group | Not or | + + + Author + + + | Author | [facility] | + + + | Organization | [facility] | + + + | Address | Unknown | + + + | Phone | Unavailable | + + + Support + + + + + | Name | Relationship | Address | Phone | + + + + + | MAME QUINTANA | ECON | [address] | | | | | [place] | | | | | [address] | | + + + + + Care Team Providers + +------+ + | Care Cable Splicer Helper Name | Role | Phone | + +------+ + | Aleshia Martinez PA-C | PP | | + +------+ + Source Comments CANDY is fully live on both EpicCare Ambulatory and EpicCare InPatient.[facility] Allergies + + + + + [...] | Gildardo Downing, | Refill Request | 2018 | | | MD | | +--------+ + + + + | 12/27/ | Refill | | Gildardo Downing, | Refill Request | | 2018 | | | MD | | +--------+ + + + + | 12/02/ | MyChart | | Gildardo Downing, | Need to make a | | 2018 | Encounter | | MD | follow up | | | | | | appointment | +--------+ + + + + | 11/25/ | Office | | Shanon Etienne ACNP | S/P laparoscopic | | 2018 | Visit | | | sleeve gastrectomy | | | | | | (Primary Dx); | | | | | | Vitamin D | | | | | | deficiency; | | | | | | Gastroesophageal | | | | | | reflux disease, | | | | | | esophagitis presence | | | | | | not specified; | | | | | | Intertriginous | | | | | | candidiasis | +--------+ + + + + | 11/25/ | Office | | Tea Reece, | S/P laparoscopic | | 2018 | Visit | | RD | sleeve gastrectomy | | | | | | (Primary Dx) | +--------+ + + + + from [...] | | 2018 | Visit | | [address] | | | | | | [place], | | | | | | [place] [address] | | +--------+---------+ + + + | 03/15/ | Office | | Marta Simmons, | | | 2018 | Visit | | AGALinda [address] | | | | | | [place], [place] | | | | | | [address] | | | | | | [phone] | | | | | | | [...] - | | | | | | /[id number] | | [id number]: Qty: 2 on | | | | | | 245 | | 08/31/2018 by Gildardo Downing | | | | | | | | MD Navin | | | | | | | + +------+--------+ +--------+--------+--------+ | Reinforcement Staple Line | | N/A: | [facility] | | 04/23/ | 12BSGE | | Bioabsorbable Sterile | | Abdome | [employer] | | 202 | [id number] / | | Seamguard Latex Free | | n | | | | | | Disposable Blue Gold Green - | | | | | | /[id number] | | [id number]: Qty: 2 on | | | | | | 248 | | 08/31/2018 by Gildardo Downing | | | | | | | | MD Navin | | | | | | | + +------+--------+ +--------+--------+--------+ Procedures + +--------+ + + + | Procedure Name | Priori | Date/Time | Associated Diagnosis | Comments | | | ty | | | | + +--------+ + + + | [place] MNT RE-ASSESSMNT | Routin | 11/25/2018 | S/P laparoscopic | | | X15MIN | e | 10:34 AM | sleeve gastrectomy | | | | | PST | | | + +--------+ + + + from Last 3 Months Results Not on filefrom Last 3 Months [...] | [address] | | [place] | al/Fam | | 1984 | +1-6- | [place] [address] | | | pawel | | | [address] | | + +--------+ +--------+ + + | KEENAN RIOJAS | Worker | Self | [birth year]/15/ | Home: | [address] | | [place] | s Comp | | 1984 | +1- | [place] [address] | | | | | | [address] | | + +--------+ +--------+ + + | KEENAN RIOJAS | Worker | Self | [birth year]/15/ | Home: | [address] | | [place] | s Comp | | 1984 | +1- | [place] [address] | | | | | | [address] | | + +--------+ +--------+ + + | KEENAN RIOJAS | Worker | Self | [birth year]/ | Home: | [address] | | [place] | s Comp | | 1984 | +1- | [place] [address] | | | | | | [address] | | + +--------+ +--------+ + +
--- OUTSIDE RECORDS SUMMARY | ~2019-01-29 | XMS | Encounter Summary ---
Demographics + + + | Address | [address] | | | [place] [address] | + + + | Home Phone | | + + + | Preferred Language | Unknown | + + + | Marital Status | | + + + | Moravian Affiliation | CHR | + + + | Race | White | + + + | Ethnic Group | Not or | + + + Author + + + | Author | [facility] | + + + | Organization | [facility] | + + + | Address | Unknown | + + + | Phone | Unavailable | + + + Support + + + + + | Name | Relationship | Address | Phone | + + + + + | MAME QUINTANA | ECON | [address] | | | | | [place] | | | | | [address] | | + + + + + Care Team Providers + +------+ + | Care Inside Outside Sales Representative Name | Role | Phone [...] | 2019 | Encounter | Center at [facility] 6[facility] | [address] | follow up | | | | Floor [address] | [place], [place] | appointment | | | | Ave Mailcode: [facility] | [address] | | | | | [facility] | | | | | | and Healing, 6th | | | | | | floor [place], [place] | | | | | | [address] | | | | | | | [...] [address] | | | | | | [place], | | | | | | [place] [address] | | +--------+---------+ + + + | 03/15/ | Office | Surgery | Marta Simmons, | | | 2018 | Visit | | AGACNP [address] | | | | | | [place] | | | | | | [address] | | | | | | [phone] | | | | | | | | +--------+---------+ + + + as of this encounter Visit Diagnoses Not on filein this encounter"
--- OUTSIDE RECORDS SUMMARY | ~2019-01-29 | XMS | Encounter Summary ---
Demographics + + + | Address | [address] | | | [place] [address] | + + + | Home Phone | | + + + | Preferred Language | Unknown | + + + | Marital Status | | + + + | Buddhism Affiliation | CHR | + + + | Race | White | + + + | Ethnic Group | Not or | + + + Author + + + | Author | [facility] | + + + | Organization | [facility] | + + + | Address | Unknown | + + + | Phone | Unavailable | + + + Support + + + + + | Name | Relationship | Address | Phone | + + + + + | MAEM QUINTANA | ECON | [address] | | | | | [place] | | | | | [address] | | + + + + + Care Team Providers + +------+ + | Care Certified Caregiver Name | Role | Phone | + [...] | | | | hernia | | [facility] [address] | | | | | without | | [address] | | | | | obstruction | | Mailcode: | | | | | or gangrene | | [address] Center | | | | | | | for Health | | | | | | | and Healing | | | | | | | [place], [place] | | | | | | | [address] | | | | | | | Phone: | | | | | | | [phone] | | | | | | | Fax: | | | | | | | [phone] | + +--------+ + + + + Encounter Details +--------+---------+ + + + | Date | Type | Department | Care Team | Description | +--------+---------+ + + + | 11/25/ | Office | Digestive Health | Tea Reece, | S/P laparoscopic | | 2019 | Visit | Center at [facility] 6th | [address] | sleeve gastrectomy | | | | Floor [address] | [address] | (Primary Dx) | | | | [address] Mailcode: | [place], [place] | | | | | [facility] | [address] | | | | | Health and Healing | | | | | | [place], [place] | | | | | | [address] | | | | | | [phone] | | | +--------+---------+ + + + [...] Blood Pressure | - | - | + + + + | Pulse | - | - | + + + + | Temperature | - | - | + + + + | Respiratory Rate | - | - | + + + + | Oxygen Saturation | - | - | + + + + | Inhaled Oxygen | - | - | | Concentration | | | + + + + | Weight | 104.1 kg (229 lb 9.6 | 11/25/2018 9:57 AM PST | | | oz) | | + + + + | Height | - | - | + + + + | Body Mass Index | 37.06 | 11/25/2018 9:57 AM PST | + + + + in this encounter Functional Status + + [...] + as of this encounter Progress Notes Tea Reece, RD - 11/25/2018 10:00 AM PSTFormatting of this note may be different from the original. Nutrition Counseling: Post-op Bariatric Surgery Follow-Up Patient referred by: No referring provider defined for this encounter. Documented time of visit: 10:00 to 10:28 (28 minutes kizj-vs-utko with patient) Surgery: Sleeve Gastrectomy Date of [...] diet progression: Begin stage 4 according to [facility] diet guidelines -Provided written & verbal education/review [...] multivitamin & mineral (with iron) supplement, 2/day -9333-5811 mg calcium citrate with vitamin D/day (take in divided doses, not within 2 hour s of multivitamin or iron supplement) -500 mcg/day sublingual B12 supplement (or monthly injections) Continued to reinforce importance of mindful eating. Continue to increase physical activity. Follow up in [address], LD Pager # [phone] in this encounter Plan of Treatment +--------+---------+ + + + | Date | Type | Specialty | Care Team | Description | +--------+---------+ + + + | 03/15/ | Office | Nutrition | Chetna Al[address] | | | 2019 | Visit | | [address] | | | | | | Jessica Sepulveda [place], | | | | | | [place] [address] | | +--------+---------+ + + + | 03/15/ | Office | Surgery | Marta Simmons, | | | 2019 | Visit | | AGAP [address] | | | | | | [place], [place] | | | | | | [address] | | | | | | [phone] | | | | | | | | +--------+---------+ + + + as of this encounter Procedures + +--------+ + + + | Procedure Name | Priori | Date/Time | Associated Diagnosis | Comments | | | ty | | | | + +--------+ + + + | CO MNT RE-ASSESSMNT | Routin | 11/25/2018 | [...]
--- OUTSIDE RECORDS SUMMARY | ~2019-01-29 | XMS | Encounter Summary ---
Demographics + + + | Address | [address] | | | [place] [address] | + + + | Home Phone | | + + + | Preferred Language | Unknown | + + + | Marital Status | | + + + | Samaritan Affiliation | CHR | + + + | Race | White | + + + | Ethnic Group | Not or | + + + Author + + + | Author | [facility] | + + + | Organization | [facility] | + + + | Address | Unknown | + + + | Phone | Unavailable | + + + Support + + + + + | Name | Relationship | Address | Phone | + + + + + | MAME QUINTANA | ECON | [address] | | | | | [place] | | | | | [address] | | + + + + + Care Team Providers + +------+ + | Care Ripsaw Grader Name | Role | Phone | [...] | 2019 | Visit | Center at [facility] 6th | [address] | sleeve gastrectomy | | | | Floor [address] | [address] [place], | (Primary Dx); | | | | Ave Mailcode: CH4S | [place] [address] | Vitamin D | | | | [facility] | [phone] | deficiency; | | | | and Healing, 6th | | Gastroesophageal | | | | floor [place], [place] | | reflux disease, | | | | [address] | | esophagitis presence | | | | [phone] | | not specified; | | | [...] + + + as of this encounter Instructions Patient Instructions - Shanon Etienne ACNP - 11/25/2018 10:50 AM PSTKeep taking omeprazole, b ut take at least 30min to 1 hour before eating anything. If your systems continue, Kanobu Networkhart, call us, and we can consider adding another dose at nigh t, or increasing the dose. OR adding something else as needed. Your next visit is in 3 months for 6 month post op visit. AT this visit we will do labs to check vitamins levels. in this encounter Progress Notes Rocio Lundberg MA - 11/25/2018 10:50 AM PSTPatient is here today to have blood drawn. Blood drawn per physicians orders. Venipuncture performed in Right Antecubital 11/25/2018 11:35 AM Pt tolerated procedure well. Venipuncture performed without difficulty. Shanon Etienne ACNP - 11/25/2018 10:50 AM PSTFormatting of this note may be different from byron smith. BARIATRIC SURGERY FOLLOW-UP ID: Sara Caballero is a 33 y.o. patient who underwent [...] of fallopian tube Laparoscopic sleeve gastrectomy 08/31/[address] [facility] [address] Downing Social History Social [...] to plan and will call and/or send [employer] message if any issues. Start time 1050, end time 1120. I spent a total of 30 minutes face to face with this patie nt. Over 50% of visit was in counseling. Shanon Etienne, MSN, AG-ACNP, HATCHERY MAN Bariatric Surgery Nurse Practitioner [facility] | [address] | [place], [place] | [address] | in this encounter Plan of Treatment +--------+---------+ + + + | Date | Type | Specialty | Care Team | Description | +--------+---------+ + + + | 03/15/ | Office | Nutrition | [address]tna [address] | | | 2018 | Visit | | [address] | | | | | | Jessica Sepulved[place], | | | | | | [place] [address] | | +--------+---------+ + + + | 03/15/ | Office | Surgery | Iris Marta Awan, | | | 2018 | Visit | | AGACNLinda [address] | | | | | | [place], [place] | | | | | | [address] | | | | | | [phone] | | | | | | | | +--------+---------+ + + + as of this encounter Visit Diagnoses + + | Diagnosis | + + | S/P laparoscopic sleeve gastrectomy - Primary | + + | Vitamin D deficiency | + + | Gastroesophageal reflux disease, esophagitis presence not specified | + + | Intertriginous candidiasis | + + | Candidiasis of skin and nails | + +
--- OUTSIDE RECORDS SUMMARY | ~2019-01-29 | XMS | Clinical Summary ---
Demographics + + + | Address | [address] | | | [place] [address] | + + + | Home Phone | | + + + | Preferred Language | Unknown | + + + | Marital Status | | + + + | Adventist Affiliation | CHR | + + + | Race | White | + + + | Ethnic Group | Not or | + + + Author + + + | Author | [facility] | + + + | Organization | [facility] | + + + | Address | Unknown | + + + | Phone | Unavailable | + + + Support + + + + + | Name | Relationship | Address | Phone | + + + + + | MAME QUINTANA | ECON | [address] | | | | | [place] | | | | | [address] | | + + + + + Care Team Providers + +------+ + | Care General Utility Maintenance Repairer Name | Role | Phone | + +------+ + | Aleshia Martinez PA-C | PP | | + +------+ + Source Comments CANDY is fully live on both EpicCare Ambulatory and EpicCare InPatient.[facility] Allergies + + + + + [...] | | 2018 | Visit | | [address] | | | | | | Jessica Sepulved[place], | | | | | | [place] [address] | | +--------+---------+ + + + | 03/15/ | Office | | Marta Simmons, | | | 2018 | Visit | | AGALinda [address] | | | | | | [place], [place] | | | | | | [address] | | | | | | [phone] | | | | | | | [...] - | | | | | | /[id number] | | [id number]: Qty: 2 on | | | | [...] - | | | | | | /[id number] | | [id number]: Qty: 2 on | | | | [...] | + +--------+ + + + | MA MNT RE-ASSESSMNT | Routin | 11/25/2018 | [...] | [address] | | [place] | al/Fam | | 1984 | +1-6- | [place] [address] | | | pawel | | | [address] | | + +--------+ +--------+ + + | KEENAN RIOJAS | Worker | Self | [birth year]/15/ | Home: | [address] | | [place] | s Comp | | 1984 | +1- | [place] [address] | | | | | | [address] | | + +--------+ +--------+ + + | KEENAN RIOJAS | Worker | Self | [birth year]/ | Home: | [address] | | [place] | s Comp | | 1984 | +1- | [place] [address] | | | | | | [address] | | + +--------+ +--------+ + + | KEENAN RIOJAS | Worker | Self | [birth year]/ | Home: | [address] | | [place] | s Comp | | 1984 | +1- | [place] [address] | | | | | | [address] | | + +--------+ +--------+ + +
--- OUTSIDE RECORDS SUMMARY | ~2019-01-29 | XMS | Encounter Summary ---
Demographics + + + | Address | [address] | | | [place] [address] | + + + | Home Phone | | + + + | Preferred Language | Unknown | + + + | Marital Status | | + + + | Methodist Affiliation | CHR | + + + | Race | White | + + + | Ethnic Group | Not or | + + + Author + + + | Author | [facility] | + + + | Organization | [facility] | + + + | Address | Unknown | + + + | Phone | Unavailable | + + + Support + + + + + | Name | Relationship | Address | Phone | + + + + + | MAME QUINTANA | ECON | [address] | | | | | [place] | | | | | [address] | | + + + + + Care Team Providers + +------+ + | Care Tool And Die Maker/Designer Name | Role | Phone | + [...] | | 2019 | | Center at [facility] 6th | MD [address] | | | | | Floor [address] | [place], [place] | | | | | Ave Mailcode: CH4S | [address] | | | | | [facility] | | | | | | and [facility], 6th | | | | | | floor [place], [place] | | | | | | [address] | | | | | | [phone] | | | +--------+--------+ + + + [...] | | | | | | [place] [address] | | +--------+---------+ + + + | 03/15/ | Office | Surgery | Marta Simmons, | | | 2018 | Visit | | AGACNP [address] | | | | | | [place], [place] | | | | | | [address] | | | | | | [phone] | | | | | | | | +--------+---------+ + + + as of this encounter Visit Diagnoses Not on filein this encounter"
--- OUTSIDE RECORDS SUMMARY | ~2019-01-29 | XMS | Encounter Summary ---
Demographics + + + | Address | [address] | | | [place] [address] | + + + | Home Phone [...] + + + | Author | [facility] | + + + | Organization | [facility] | + + + | Address | Unknown | + + + | Phone | Unavailable | + + + Support + + + + + | Name | Relationship | Address | Phone | + + + + + | MAME QUINTANA | ECON | [address] | | | | | [place] | | | | | [address] | | + + + + + Care Team Providers + +------+ + | Care Social Services Manager Name | Role | Phone | [...] | 2019 | Encounter | Center at [facility] 6th | [address] | follow up | | | | Floor [address] | [place], [place] | appointment | | | | Ave Mailcode: [facility] | [address] | | | | | Center for Health | | | | | | and Healing, 6th | | | | | | floor [place], [place] | | | | | | [address] | | | | | | | [...] | | | | | | [place] [address] | | +--------+---------+ + + + | 03/15/ | Office | Surgery | Marta Simmons, | | | 2018 | Visit | | AGACNP [address] | | | | | | [place] | | | | | | [address] | | | | | | [phone] | | | | | | | | +--------+---------+ + + + as of this encounter Visit Diagnoses Not on filein this encounter"
--- OUTSIDE RECORDS SUMMARY | ~2019-01-29 | XMS | Encounter Summary ---
Demographics + + + | Address | [address] | | | [place] [address] | + + + | Home Phone [...] Author | [facility] | + + + | Organization | [facility] | + + + | Address | Unknown | + + + | Phone | Unavailable | + + + Support + + + + + | Name | Relationship | Address | Phone | + + + + + | MAME QUINTANA | ECON | [address] | | | | | [place] | | | | | [address] | | + + + + + Care Team Providers + +------+ + | Care Fur Dry Cleaner Name | Role | Phone | [...] | 2019 | Encounter | Center at [facility] 6th | [address] | | | | | Floor [address] | [place], [place] | | | | | [place] Mailcode: CH4S | [address] | | | | | [facility] | | | | | | and [place], 6th | | | | | | floor [place], [place] | | | | | | [address] | | | | | | | [...] | | | | | | [place] [address] | | +--------+---------+ + + + | 03/15/ | Office | Surgery | Marta Simmons, | | | 2019 | Visit | | AGACNP [address] | | | | | | [place] | | | | | | [address] | | | | | | [phone] | | | | | | | | +--------+---------+ + + + as of this encounter Visit Diagnoses Not on filein this encounter"
--- OUTSIDE RECORDS SUMMARY | ~2019-01-29 | XMS | Encounter Summary ---
Demographics + + + | Address | [address] | | | [place] [address] | + + + | Home Phone | | + + + | Preferred Language | Unknown | + + + | Marital Status | | + + + | Amish Affiliation | CHR | + + + | Race | White | + + + | Ethnic Group | Not or | + + + Author + + + | Author | [facility] | + + + | Organization | [facility] | + + + | Address | Unknown | + + + | Phone | Unavailable | + + + Support + + + + + | Name | Relationship | Address | Phone | + + + + + | MAME QUINTANA | ECON | [address] | | | | | [place] | | | | | [address] | | + + + + + Care Team Providers + +------+ + | Care Paraffin Plant Sweater Operator Name | Role | Phone | [...] | 2019 | Visit | Center at [facility] 6th | [address] | sleeve gastrectomy | | | | Floor [address] | [address] [place], | (Primary Dx); | | | | Ave Mailcode: CH4S | [place] [address] | Vitamin D | | | | [facility] | [phone] | deficiency; | | | | and Healing, 6th | | Gastroesophageal | | | | floor [place], [place] | | reflux disease, | | | | [address] | | esophagitis presence | | | | [phone] | | not specified; | | | [...] before eating anything. If your systems continue, Filaohart, call us, and we can consider adding [...] fallopian tube Laparoscopic sleeve gastrectomy 08/31/2018 [facility] [address] Downing Social History Social History Marital [...] to plan and will call and/or send [employer] message if any issues. Start time 1050, end time 1120. I spent a total of 30 minutes face to face with this patie nt. Over 50% of visit was in counseling. Shanon Etienne, MSN, AG-ACNP, SUBSTANCE ABUSE NURSE Bariatric Surgery Nurse Practitioner [facility] | [address] | [place], [place] | [address] | in this encounter Plan of Treatment +--------+---------+ + + + | Date | Type | Specialty | Care Team | Description | +--------+---------+ + + + | 03/15/ | Office | Nutrition | [address] | | | 2018 | Visit | | [address] | | | | | | Jessica [place], | | | | | | [place] [address] | | +--------+---------+ + + + | 03/15/ | Office | Surgery | Iris Marta Awan, | | | 2018 | Visit | | AGACNLinda [address] | | | | | | [place], [place] | | | | | | [address] | | | | | | [phone] | | | | | | | [...]
--- OUTSIDE RECORDS SUMMARY | ~2019-01-29 | XMS | Encounter Summary ---
Demographics + + + | Address | [address] | | | [place] [address] | + + + | Home Phone [...] [place] | | | | | [address] | | + + + + + Care Team Providers + +------+ + | Care Director Of Infection Control Name | Role | Phone | + [...] | | | | hernia | | [facility] [address] | | | | | without | | [address] | | | | | obstruction | | Mailcode: | | | | | or gangrene | | [address] Center | | | | | | | for Health | | | | | | | and Healing | | | | | | | [place], [place] | | | | | | | [address] | | | | | | | Phone: | | | | | | | [phone] | | | | | | | Fax: | | | | | | | [phone] | + +--------+ + + + + Encounter Details +--------+---------+ + + + | Date | Type | Department | Care Team | Description | +--------+---------+ + + + | 11/25/ | Office | Digestive Health | Tea Reece, | S/P laparoscopic | | 2019 | Visit | Center at [facility] 6th | [address] | sleeve gastrectomy | | | | Floor [address] | [address] | (Primary Dx) | | | | [address] Mailcode: | [place], [place] | | | | | [facility] [facility] | [address] | | | | | Health and Healing | | | | | | [place], [place] | | | | | | [address] | | | | | | [phone] | | | +--------+---------+ + + + [...] of visit: 10:00 to 10:28 (28 minutes slay-vl-twcl with patient) Surgery: Sleeve Gastrectomy Date of [...] diet progression: Begin stage 4 according [facility] diet guidelines -Provided written & verbal [...] multivitamin & mineral (with iron) supplement, 2/day -4347-9259 mg calcium citrate with vitamin D/day (take [...] | | | | | Jessica [place]a [place], | | | | | | [place] [address] | | +--------+---------+ + + + | 03/15/ | Office | Surgery | Marta Simmons, | | | 2019 | Visit | | AGAP [address] | | | | | | [place], [place] | | | | | | [address] | | | | | | [phone] | | | | | | | | +--------+---------+ + + + as of this encounter Procedures + +--------+ + + + | Procedure Name | Priori | Date/Time | Associated Diagnosis | Comments | | | ty | | | | + +--------+ + + + | AR MNT RE-ASSESSMNT | Routin | 11/25/2018 | [...]
--- OUTSIDE RECORDS SUMMARY | ~2019-01-29 | XMS | Encounter Summary ---
Demographics + + + | Address | [address] | | | [place] [address] | + + + | Home Phone | | + + + | Preferred Language | Unknown | + + + | Marital Status | | + + + | Pentecostal Affiliation | CHR | + + + | Race | White | + + + | Ethnic Group | Not or | + + + Author + + + | Author | [facility] | + + + | Organization | [facility] | + + + | Address | Unknown | + + + | Phone | Unavailable | + + + Support + + + + + | Name | Relationship | Address | Phone | + + + + + | MAME QUINTANA | ECON | [address] | | | | | [place] | | | | | [address] | | + + + + + Care Team Providers + +------+ + | Care Lacing Operator Name | Role | Phone | [...] | | 2019 | | Center at [facility] 6th | MD [address] | | | | | Floor [address] | [place], [place] | | | | | Ave Mailcode: CH4S | [address] | | | | | [facility] | | | | | | and [facility], 6th | | | | | | floor [place], [place] | | | | | | [address] | | | | | | [phone] | | | +--------+--------+ + + + [...] | | | | | | [place] [address] | | +--------+---------+ + + + | 03/15/ | Office | Surgery | Marta Simmons, | | | 2018 | Visit | | AGACNP [address] | | | | | | [place], [place] | | | | | | [address] | | | | | | [phone] | | | | | | | | +--------+---------+ + + + as of this encounter Visit Diagnoses Not on filein this encounter"
--- OUTSIDE RECORDS SUMMARY | ~2019-01-29 | XMS | Encounter Summary ---
Demographics + + + | Address | [address] | | | [place] [address] | + + + | Home Phone | | + + + | Preferred Language | Unknown | + + + | Marital Status | | + + + | Yarsani Affiliation | CHR | + + + | Race | White | + + + | Ethnic Group | Not or | + + + Author + + + | Author | [facility] | + + + | Organization | [facility] | + + + [...] [place] | | | | | [address] | | + + + + + Care Team Providers + +------+ + | Care Travel Rn Name | Role | Phone | + [...] | | 2019 | | Center at [facility] 6th | MD [address] | | | | | Floor [address] | [place], [place] | | | | | Ave Mailcode: CH4S | [address] | | | | | [facility] | | | | | | and [facility], 6th | | | | | | floor [place], [place] | | | | | | [address] | | | | | | [phone] | | | +--------+--------+ + + + [...] | | | | | | [place] [address] | | +--------+---------+ + + + | 03/15/ | Office | Surgery | Marta Simmons, | | | 2018 | Visit | | AGACNP [address] | | | | | | [place], [place] | | | | | | [address] | | | | | | [phone] | | | | | | | | +--------+---------+ + + + as of this encounter Visit Diagnoses Not on filein this encounter"
[~2019-01-29 18:44] MED LIST changes: +CIPRO500 MG PO; +NORCO 5-325 TA1 EACH PO; +VENTOLIN HFA18 GM INH; +ZYRTEC10 MG PO
--- OUTSIDE RECORDS SUMMARY | 2019-01-29 18:46 | XMS ---
PreManage Notification: PATTI FREIRE Security Title One Teacher Events No recent Security Events currently on file CRITERIA MET - SHERRYP CARE PROVIDERS Amy Aguilar Current Kezia LEON PHONE: Unknown Mathieu has no Care Guidelines for this patient. EAnila VISIT COUNT (12 MO.) 2 [facility] TOTAL 2 NOTE: Visits indicate total known visits. ED/UCC VISIT TRACKING (12 MO.) 01/29/2019 18:44 [facility] [place] TYPE: Emergency COMPLAINT: - URINE PROBLEM 08/07/2018 09:33 [facility] [place] TYPE: Emergency COMPLAINT: - ABD PAIN/NAUSEA DIAGNOSES: - Latex allergy status - Unspecified abdominal pain - Radiographic dye allergy status - Allergy status to other drugs, medicaments and biological substances status - Other [facility] (current[facility] drug therapy - Essential (primary) hypertension - Urinary tract infection, site not specified - Other nonmedicinal substance allergy status INPATIENT VISIT TRACKING (12 MO.) 08/31/2018 10:28 [facility] TYPE: Surgery DIAGNOSES: [address]. MORBID OBESITY . Essential (primary) hypertension . Morbid (severe) obesity due to excess calories . Body mass index (BMI) 40.0-44.9, adult [email or web address]
[2019-01-29] MEDS ORDERED: URSO250 MG PO (19:02)
[2019-01-29] MEDS ORDERED: PYRIDIUM200 MG PO (19:57)
[2019-01-29] MEDS ORDERED: KEFLEX500 MG PO (19:57)
== END 2019-01-29 20:24 | disposition home or self-care (01) ==
LOC: ED 18:44
DX: R30.0 Dysuria (principal); M54.5 Low back pain; R35.0 Frequency of micturition; R11.0 Nausea; I10 Essential (primary) hypertension; Z91.041 Radiographic dye allergy status; Z91.048 Other nonmedicinal substance allergy status; Z91.040 Latex allergy status; Z88.8 Allergy status to other drugs, medicaments and biological substances; Z79.899 Other long term (current) drug therapy
CPT/HCPCS: 81001; 99283

== ENCOUNTER 2019-02-23 02:32 | Emergency (ER) | payer BC ==
[~2019-02-23] VITALS: Ht 167.6 cm; Wt 89.8 kg
--- OUTSIDE RECORDS SUMMARY | ~2019-02-23 | XMS | Encounter Summary ---
Demographics + + + | Address | [address] | | | [place] [address] | + + + | Home Phone | | + + + | Preferred Language | Unknown | + + + | Marital Status | | + + + | Muslim Affiliation | CHR | + + + | Race | White | + + + | Ethnic Group | Not or | + + + Author + + + | Author | [facility] | + + + | Organization | [facility] | + + + | Address | Unknown | + + + | Phone | Unavailable | + + + Support + + + + + | Name | Relationship | Address | Phone | + + + + + | MAME QUINTANA | ECON | [address] | | | | | [place] | | | | | [address] | | + + + + + Care Team Providers + +------+ + | Care Club Concierge Name | Role | Phone | [...] | | 2019 | | Center at [facility] | MD [address] | | | | | [address] | [place], [place] | | | | | Mailcode: [place] | [address] | | | | | for Health and | | | | | | [place] [address] | | | | | | [place], [place] | | | | | | [address] | | | | | | | [...] [place], | | | | | | [place] [address] | | +--------+---------+ + + + | 03/15/ | Office | Surgery | Marta Simmons, | | | 2018 | Visit | | AGACNP [address] | | | | | | [place], [place] | | | | | | [address] | | | | | | [phone] | | | | | | | | +--------+---------+ + + + as of this encounter Visit Diagnoses Not on filein this encounter"
--- OUTSIDE RECORDS SUMMARY | ~2019-02-23 | XMS | Clinical Summary ---
Demographics + + + | Address | [address] | | | [place] [address] | + + + | Home Phone | | + + + | Preferred Language | Unknown | + + + | Marital Status | | + + + | Rastafari Affiliation | CHR | + + + | Race | White | + + + | Ethnic Group | Not or | + + + Author + + + | Author | [facility] | + + + | Organization | [facility] | + + + | Address | Unknown | + + + | Phone | Unavailable | + + + Support + + + + + | Name | Relationship | Address | Phone | + + + + + | MAME QUINTANA | ECON | [address] | | | | | [place] | | | | | [address] | | + + + + + Care Team Providers + +------+ + | Care Accountant Auditor Name | Role | Phone | + +------+ + | Aleshia Martinez PA-C | PP | | + +------+ + Source Comments CANDY is fully live on both EpicCare Ambulatory and EpicCare InPatient.Count Includes [facility] Allergies + + + + [...] + | Latex | Rash | | 10//20 | | | | | | 17 | | + + + + + + | Naproxen | Rash | | 08/18/20 | | | | | | 17 | | + + + + + + Current Medications + + +---------+---------+------+------+-------+ | Prescription | Sig. | Disp. | Refills | Star | End | Statu | | | | | | t | Date | s | | | | | | Date | | | + + +---------+---------+------+------+-------+ | sertraline 50 mg | Take 75 mg by mouth | | | | | Activ | | oral tablet | once daily. | | | | | e | + + +---------+---------+------+------+-------+ | fluticasone 50 | Instill 1 spray into | | | | | Activ | | mcg/actuation nasal | each nostril as | | | | | e | | spray,suspension | needed. | | | | | | + + +---------+---------+------+------+-------+ | ALBUTEROL INHL | Inhale 2 puffs as | | | | | Activ | | | needed. | | | | | e | + + +---------+---------+------+------+-------+ | cetirizine 10 mg | Take 10 mg by mouth | | | | | Activ | | oral tablet | as needed. | | | | | e | + + +---------+---------+------+------+-------+ | Cholecalciferol | Take 1 tablet by | 60 | 3 | 03/1 | | Activ | | (Vitamin D3) | mouth once daily. | tablet | | 6/20 | | e | | (VITAMIN D3) 5,000 | Indications: Vitamin | | | 18 | | | | unit oral | D Deficiency | | | | | | | tabletIndications: | | | | | | | | vitamin D deficiency | | | | | | | + + +---------+---------+------+------+-------+ | Bacillus | Take by mouth. | | | | | Activ | | coagulans/inulin | | | | | | e | | (PROBIOTIC WITH | | | | | | | | PREBIOTIC ORAL) | | | | | | | + + +---------+---------+------+------+-------+ | | Take 1 tablet by | 1 | | 11/0 | | Activ | | desogestrel-ethinyl | mouth once daily. | Package | | 07/14 | | e | | estradiol (ENSKYCE) | Hold for two weeks | | | 18 | | | | 0.15-0.03 mg oral | after surgery. | | | | | | | tablet | | | | | | | + + +---------+---------+------+------+-------+ | diazePAM 2 mg oral | Take 1 tablet by | 15 | 0 | 11/0 | | Activ | | tablet | mouth three times | tablet | | 20 | | e | | | daily. Stop taking | | | 18 | | | | | if not helpful with | | | | | | | | spasms | | | | | | + + +---------+---------+------+------+-------+ | ibuprofen 200 mg | Take 1 capsule by | | | 11/0 | | Activ | | oral capsule | mouth as needed. | | | 9/20 | | e | | | Hold for 1 week | | | 18 | | | | | after surgery | | | | | | + + +---------+---------+------+------+-------+ | atenolol 25 mg | Take 2 tablets by | | | 11/0 | | Activ | | oral tablet | mouth once daily. | | | 9/20 | | e | | | Hold for 1 week | | | 18 | | | + + +---------+---------+------+------+-------+ | hyoscyamine | Take 1 tablet by | 30 | 0 | 11/0 | | Activ | | (LEVSIN) 0.125 mg | mouth every four | tablet | | 9/20 | | e | | oral | hours as needed. | | | 18 | | | | tabletIndications: | Indications: muscle | | | | | | | muscle spasms | spasms | | | | | | + + +---------+---------+------+------+-------+ | ergocalciferol | Take 1 capsule by | 52 | 0 | 11/1 | | Activ | | 50,000 unit oral | mouth every seven | capsule | | 4/20 | | e | | capsuleIndications: | days. Indications: | | | 18 | | | | Vitamin D Deficiency | Vitamin D Deficiency | | | | | | | (High Dose Therapy) | (High Dose Therapy) | | | | | | + + +---------+---------+------+------+-------+ | methocarbamol 500 | Take 2 tablets by | 30 | 0 | 11/2 | | Activ | | mg oral tablet | mouth three times | tablet | | 01/11 | | e | | | daily as needed. May | | | 18 | | | | | break into small | | | | | | | | pieces if needed. | | | | | | + + +---------+---------+------+------+-------+ | ursodiol 250 mg | Take 1 tablet by | 60 | 4 | 01/0 | | Activ | | oral tablet | mouth two times | tablet | | 07/14 | | e | | | daily. Take with | | | 19 | | | | | food. | | | | | | + + +---------+---------+------+------+-------+ | nystatin 100,000 | Apply to affected | 15 g | 2 | 02/0 | | Activ | | unit/gram topical | area two times | | | 1/20 | | e | | powder | daily. Apply to | | | 19 | | | | | candidal lesions | | | | | | | | until lesions have | | | | | | | | healed. | | | | | | + + +---------+---------+------+------+-------+ | omeprazole 20 mg | Take 1 capsule by | 30 | 2 | 03/2 | | Activ | | oral capsule,delayed | mouth once daily. | capsule | | 6/20 | | e | | release(DR/EC) | Administer 30 to 60 | | | 19 | | | | | minutes before meals | | | | | | + + +---------+---------+------+------+-------+ Active Problems + + + | Problem | Noted Date | + + + | S/P laparoscopic sleeve gastrectomy | 09/29/2018 | + + + + + | Overview: HIghest wt 291lb | | | | Program start 286lb | | | | Preop wt 270lb | + + + + + | Morbid obesity with [...] female | 01/06/2018 | + + + Resolved Problems + + + + | Problem | Noted | Resolved | | | Date | Date | + + + + | Acute post-operative pain | 09/02/20 | | | | 18 | 8 | + + + + Encounters +--------+ + + + + | Date | Type | Specialty | Care Team | Description | +--------+ + + + + | 01/17/ | MyChart | | Gildardo Downing, | RE: RE: Omeprazole | | 2018 | Encounter | | MD | | +--------+ + + + + | 01/17/ | Refill | | Gildardo Downing, | Refill Request | | 2018 | | | MD | | +--------+ + + + + | 12/27/ | Refill | | Gildardo Downing, | Refill Request | | 2018 | | | MD | | +--------+ + + + + | 12/02/ | MyChart | | [place] Gildardo Navin, | Need to make a | | 2019 | Encounter | | MD | follow up | | | | | | appointment | +--------+ + + + + from [...] | + +------+--------+ + Social History + + + +--------+ [...] | | | + +---+---+---+ + + | Tobacco Cessation: Counseling Given: No | + + + + +---------+ + | Alcohol Use [...] + + + | Blood Pressure | 130/88 | 11/25/2018 10:42 AM PST | + + + + | Pulse | 72 | 11/25/2018 10:42 AM PST | + + + + | Temperature | 36.7 C (98.1 F) | 11/25/2018 10:42 AM PST | + + + + | Respiratory Rate | 17 | 11/25/2018 10:42 AM PST | + + + + | Oxygen Saturation | 95% | 09/29/2018 11:43 AM PST | + + + + | Inhaled Oxygen | - | - | | Concentration | | | + + + + | Weight | 104.1 kg (229 lb 9.6 | 11/25/2018 10:42 AM PST | | | oz) | | + + + + | Height | 167.6 cm (5' 5.98") | 11/25/2018 10:42 AM PST | + + + + | Body Mass Index | 37.08 | 11/25/2018 10:42 AM PST | + + + + Plan of Treatment +--------+---------+ + + + | Date | Type | Specialty | Care Team | Description | +--------+---------+ + + + | 03/15/ | Office | | [address] | | | 2018 | Visit | | [address] | | | | | | [place] | | | | | | [place] [address] | | +--------+---------+ + + + | 03/15/ | Office | | Marta Simmons, | | | 2019 | Visit | | AGACNP [address] | | | | | | [place], [place] | | | | | | [address] | | | | | | [phone] | | | | | | | | +--------+---------+ + + + + + + + + | Health Maintenance | Due Date | Last Done | Comments | + + + + + | Influenza (Flu) | | | | | vaccination (#1) | 8 | | | + + + + + Implants + +------+--------+ +--------+--------+--------+ | Implanted | Type | Area | Manufacture | Device | Expira | Model | | | | | r | | tion | / | | | | | | Identi | Date | Serial | | | | | | fier | | / Lot | + +------+--------+ +--------+--------+--------+ | Reinforcement Staple Line | | N/A: | [employer] | | 04/23/ | [id number] | | Bioabsorbable Sterile | | [employer] | [employer] | | 2020 | [id number] / | | Seamguard Latex Free | | n | | | | | | Disposable Blue Gold Green - | | | | | | /[id number] | | [id number]: Qty: 2 on | | | | | | 245 | | 08/31/2018 by Gildardo Downing | | | | | | | | A, MD | | | | | | | + +------+--------+ +--------+--------+--------+ | Reinforcement Staple Line | | N/A: | [employer] | | 04/23/ | [id number] | | Bioabsorbable Sterile | | [employer] | | 2020 | [id number] / | | Seamguard Latex Free | | n | | | | | | Disposable Blue Gold Green - | | | | | | /[id number] | | [id number]: Qty: 2 on | | | | | | 248 | | 08/31/2018 by Gildardo Downing | | | | | | | | A, MD | | | | | | | + +------+--------+ +--------+--------+--------+ Results Not on filefrom Last 3 Months Insurance + +--------+ +--------+-------+---------+ | Payer | Benefi | Subscriber | Type | Phone | Address | | | t Plan | ID | | | | | | / | | | | | | | Group | | | | | + +--------+ +--------+-------+---------+ | CORVEL WC | CORVEL | xxxxxxxxxxx | Worker | | | | | WC | x | s Comp | | | + +--------+ +--------+-------+---------+ + +--------+ +--------+ + + | Guarantor Name | Accoun | Relation to | Date | Phone | Billing Address | | | t Type | Patient | of | | | | | | | | | | + +--------+ +--------+ + + | KEENAN RIOJAS | Person | Self | [birth year] | Home: | [address] | | [place] | al/Fam | | 1984 | [phone] | [place] [address] | | | [place] | | | [phone] | | + +--------+ +--------+ + + | KEENAN RIOJAS | Worker | Self | [birth year] | Home: | [address] | | [place] | s Comp | | 1984 | +1- | [place] [address] | | | | | | [address] | | + +--------+ +--------+ + + | KEENAN RIOJAS | Worker | Self | [birth year] | Home: | [address] | | [place] | s Comp | | 1984 | +1- | [place] [address] | | | | | | [address] | | + +--------+ +--------+ + + | KEENAN RIOJAS | Worker | Self | [birth year] | Home: | [address] | | [place] | s Comp | | 1984 | +1- | [place] [address] | | | | | | [address] | | + +--------+ +--------+ + +
--- OUTSIDE RECORDS SUMMARY | ~2019-02-23 | XMS | Encounter Summary ---
Demographics + + + | Address | [address] | | | [place] [address] | + + + | Home Phone [...] + + + | Author | [facility] | + + + | Organization | [facility] | + + + | Address | Unknown | + + + | Phone | Unavailable | + + + Support + + + + + | Name | Relationship | Address | Phone | + + + + + | MAME QUINTANA | ECON | [address] | | | | | [place] | | | | | [address] | | + + + + + Care Team Providers + +------+ + | Care Pet Sitting Name | Role | Phone | + [...] Omeprazole | | 2018 | Encounter | Center at [facility] [address] | MD [address] | | | | | [address] | [place], [place] | | | | | Mailcode: Center | [address] | | | | | for Health and | | | | | | [facility] | | | | | | [place], [place] | | | | | | [address] | | | | | | | [...] | | | | | | [place] [address] | | +--------+---------+ + + + | 03/15/ | Office | Surgery | Marta Simmons, | | | 2018 | Visit | | AGACNP [address] | | | | | | [place] | | | | | | [address] | | | | | | [phone] | | | | | | | | +--------+---------+ + + + as of this encounter Visit Diagnoses Not on filein this encounter"
--- OUTSIDE RECORDS SUMMARY | ~2019-02-23 | XMS | Encounter Summary ---
Demographics + + + | Address | [address] | | | [place] [address] | + + + | Home Phone | | + + + | Preferred Language | Unknown | + + + | Marital Status | | + + + | Yarsanism Affiliation | CHR | + + + | Race | White | + + + | Ethnic Group | Not or | + + + Author + + + | Author | [facility] | + + + | Organization | [facility] | + + + | Address | Unknown | + + + | Phone | Unavailable | + + + Support + + + + + | Name | Relationship | Address | Phone | + + + + + | MAME QUINTANA | ECON | [address] | | | | | [place] | | | | | [address] | | + + + + + Care Team Providers + +------+ + | Care Geophysical Prospector Name | Role | Phone | + [...] | Center at [facility] [address] | MD [address] | | | | | [address] | [place], [place] | | | | | Mailcode: Center | [address] | | | | | for Health and | | | | | | [facility] | | | | | | [place], [place] | | | | | | [address] | | | | | | | [...] | | | | | | [place] [address] | | +--------+---------+ + + + | 03/15/ | Office | Surgery | Marta Simmons, | | | 2018 | Visit | | AGACNP [address] | | | | | | [place] | | | | | | [address] | | | | | | [phone] | | | | | | | | +--------+---------+ + + + as of this encounter Visit Diagnoses Not on filein this encounter"
--- OUTSIDE RECORDS SUMMARY | ~2019-02-23 | XMS | Clinical Summary ---
Demographics + + + | Address | [address] | | | [place] [address] | + + + | Home Phone | | + + + | Preferred Language | Unknown | + + + | Marital Status | | + + + | Protestant Affiliation | CHR | + + + | Race | White | + + + | Ethnic Group | Not or | + + + Author + + + | Author | [facility] | + + + | Organization | [facility] | + + + | Address | Unknown | + + + | Phone | Unavailable | + + + Support + + + + + | Name | Relationship | Address | Phone | + + + + + | MAME QUINTANA | ECON | [address] | | | | | [place] | | | | | [address] | | + + + + + Care Team Providers + +------+ + | Care Substance Abuse Nurse Name | Role | Phone | + +------+ + | Aleshia Martinez PA-C | PP | | + +------+ + Source Comments CANDY is fully live on both EpicCare Ambulatory and EpicCare InPatient.[facility] Allergies + + + + + [...] | | | | | [address] | | | | | | [place] [address] | | +--------+---------+ + + + | 03/15/ | Office | | Marta Simmons, | | | 2019 | Visit | | AGACNP [address] | | | | | | [place], [place] | | | | | | [address] | | | | | | [phone] | | | | | | | [...] - | | | | | | /[address] | | [id number]: Qty: 2 on | | | | [...] - | | | | | | /[address] | | [id number]: Qty: 2 on | | | | [...] Self | [birth year] | Home: | [address] | | [place] | al/Fam | | 1984 | [phone]- | [place] [address] | | | [place] | | | [address] | | + +--------+ +--------+ + + | KEENAN RIOJAS | Worker | Self | [birth year] | Home: | [address] | | [place] | s Comp | | 1984 | +1- | [place] [address] | | | | | | [address] | | + +--------+ +--------+ + + | KEENAN RIOJAS | Worker | Self | [birth year] | Home: | [address] | | [place] | s Comp | | 1984 | +1- | [place] [address] | | | | | | [address] | | + +--------+ +--------+ + + | KEENAN RIOJAS | Worker | Self | [birth year] | Home: | [address] | | [place] | s Comp | | 1984 | +1- | [place] [address] | | | | | | [address] | | + +--------+ +--------+ + +
--- OUTSIDE RECORDS SUMMARY | ~2019-02-23 | XMS | Encounter Summary ---
Demographics + + + | Address | [address] | | | [place] [address] | + + + | Home Phone [...] Author | [facility] | + + + | Organization | [facility] | + + + | Address | Unknown | + + + | Phone | Unavailable | + + + Support + + + + + | Name | Relationship | Address | Phone | + + + + + | MAME QUINTANA | ECON | [address] | | | | | [place] | | | | | [address] | | + + + + + Care Team Providers + +------+ + | Care Farm Owner Operator Name | Role | Phone | [...] 2019 | Encounter | Center at [facility] [address] | [address] | follow up | | | | [address] | [place], [place] | appointment | | | | Mailcode: Center | [address] | | | | | for Health and | [phone] | | | | | Healing, [address] | | | | | | [place], [place] | | | | | | [address] | | | | | | [phone] | | | +--------+ + + + [...] | | | | | | [place] [address] | | +--------+---------+ + + + | 03/15/ | Office | Surgery | Marta Simmons, | | | 2018 | Visit | | AGACNP [address] | | | | | | [place] | | | | | | [address] | | | | | | [phone] | | | | | | | | +--------+---------+ + + + as of this encounter Visit Diagnoses Not on filein this encounter"
--- OUTSIDE RECORDS SUMMARY | ~2019-02-23 | XMS | Encounter Summary ---
Demographics + + + | Address | [address] | | | [place] [address] | + + + | Home Phone [...] [place] | | | | | [address] | | + + + + + Care Team Providers + +------+ + | Care Photoflash Powder Mixer Name | Role | Phone | + [...] | | 2019 | | Center at [facility] [address] | MD [address] | | | | | [address] | [place], [place] | | | | | Mailcode: [place] | [address] | | | | | for Health and | | | | | | [place] [address] | | | | | | [place], [place] | | | | | | [address] | | | | | | | [...] | | | | | | [place] [address] | | +--------+---------+ + + + | 03/15/ | Office | Surgery | Marta Simmons, | | | 2018 | Visit | | AGACNP [address] | | | | | | [place], [place] | | | | | | [address] | | | | | | [phone] | | | | | | | | +--------+---------+ + + + as of this encounter Visit Diagnoses Not on filein this encounter"
--- OUTSIDE RECORDS SUMMARY | ~2019-02-23 | XMS | Encounter Summary ---
Demographics + + + | Address | [address] | | | [place] [address] | + + + | Home Phone | | + + + | Preferred Language | Unknown | + + + | Marital Status | | + + + | Jainism Affiliation | CHR | + + + | Race | White | + + + | Ethnic Group | Not or | + + + Author + + + | Author | [facility] | + + + | Organization | [facility] | + + + | Address | Unknown | + + + | Phone | Unavailable | + + + Support + + + + + | Name | Relationship | Address | Phone | + + + + + | MAME QUINTANA | ECON | [address] | | | | | [place] | | | | | [address] | | + + + + + Care Team Providers + +------+ + | Care Public Health Representative Name | Role | Phone | [...] | | 2019 | | Center at [facility] [address] | MD [address] | | | | | [address] | [place], [place] | | | | | Mailcode: [place] | [address] | | | | | for Health and | | | | | | [place] [address] | | | | | | [place], [place] | | | | | | [address] | | | | | | | [...] | | | | | | [place] [address] | | +--------+---------+ + + + | 03/15/ | Office | Surgery | Marta Simmons, | | | 2018 | Visit | | AGACNP [address] | | | | | | [place], [place] | | | | | | [address] | | | | | | [phone] | | | | | | | | +--------+---------+ + + + as of this encounter Visit Diagnoses Not on filein this encounter"
--- OUTSIDE RECORDS SUMMARY | ~2019-02-23 | XMS | Encounter Summary ---
Demographics + + + | Address | [address] | | | [place] [address] | + + + | Home Phone | | + + + | Preferred Language | Unknown | + + + | Marital Status | | + + + | Adventism Affiliation | CHR | + + + | Race | White | + + + | Ethnic Group | Not or | + + + Author + + + | Author | [facility] | + + + | Organization | [facility] | + + + | Address | Unknown | + + + | Phone | Unavailable | + + + Support + + + + + | Name | Relationship | Address | Phone | + + + + + | MAME QUINTANA | ECON | [address] | | | | | [place] | | | | | [address] | | + + + + + Care Team Providers + +------+ + | Care Service Tester Name | Role | Phone | [...] 2019 | Encounter | Center at [facility] [address] | [address] | follow up | | | | [address] | [place], [place] | appointment | | | | Mailcode: Center | [address] | | | | | for Health and | [phone] | | | | | Healing, [address] | | | | | | [place], [place] | | | | | | [address] | | | | | | [phone] | | | +--------+ + + + [...] | | | | | | [place] [address] | | +--------+---------+ + + + | 03/15/ | Office | Surgery | Marta Simmons, | | | 2018 | Visit | | AGACNP [address] | | | | | | [place] | | | | | | [address] | | | | | | [phone] | | | | | | | | +--------+---------+ + + + as of this encounter Visit Diagnoses Not on filein this encounter"
--- OUTSIDE RECORDS SUMMARY | ~2019-02-23 | XMS | Encounter Summary ---
Demographics + + + | Address | [address] | | | [place] [address] | + + + | Home Phone [...] + + + | Author | [facility] | + + + | Organization | [facility] | + + + | Address | Unknown | + + + | Phone | Unavailable | + + + Support + + + + + | Name | Relationship | Address | Phone | + + + + + | MAME QUINTANA | ECON | [address] | | | | | [place] | | | | | [address] | | + + + + + Care Team Providers + +------+ + | Care Educational Technician Name | Role | Phone | [...] 2019 | | Center at [facility] | MD [address] | | | | | [address] | [place], [place] | | | | | Mailcode: [place] | [address] | | | | | for Health and | | | | | | [place] [address] | | | | | | [place], [place] | | | | | | [address] | | | | | | | [...] | | | | | | [place] [address] | | +--------+---------+ + + + | 03/15/ | Office | Surgery | Marta Simmons, | | | 2018 | Visit | | AGACNP [address] | | | | | | [place], [place] | | | | | | [address] | | | | | | [phone] | | | | | | | | +--------+---------+ + + + as of this encounter Visit Diagnoses Not on filein this encounter"
[~2019-02-23 02:32] MED LIST changes: +KEFLEX500 MG PO; +PYRIDIUM200 MG PO; +URSO250 MG PO
[2019-02-23] MEDS ORDERED: OMEPRAZOLE20 MG PO (02:54)
[2019-02-23] MEDS ORDERED: PREDNISONE20 MG PO (04:38)
--- OUTSIDE RECORDS SUMMARY | 2019-02-23 05:34 | XMS ---
PreManage Notification: PATTI FREIRE Security Steel Cutter Events No recent Security Events currently on file CRITERIA MET - [facility] PAINTER Physician Residential Designer 01/30/2019-Current PHONE: [phone] Amy Aguilar PA-C PHONE: Unknown Mathieu has no Care Guidelines for this patient. EAnila VISIT COUNT (12 MO.) Angelita Hairston TOTAL 3 NOTE: Visits indicate total known visits. ED/UCC VISIT TRACKING (12 MO.) 02/23/2019 02:32 [facility] [place] TYPE: Emergency COMPLAINT: - R FOOT PAIN/NO INJURY 01/29/2019 18:44 [facility] [place] TYPE: Emergency COMPLAINT: - URINE PROBLEM DIAGNOSES: - Low back pain - Other nonmedicinal substance allergy status - Other residential (current) drug therapy - Frequency of micturition - Radiographic dye allergy status - Allergy status to other drugs, medicaments and biological substances status - Dysuria - Latex allergy status - Nausea - Low back pain - Essential (primary) hypertension - Dysuria 08/07/2018 09:33 [facility] [place] TYPE: Emergency COMPLAINT: - ABD PAIN/NAUSEA DIAGNOSES: - Latex allergy status - Unspecified abdominal pain - Radiographic dye allergy status - Allergy status to other drugs, medicaments and biological substances status - Other termite treater (current) drug therapy - Essential (primary) hypertension - Urinary tract infection, site not specified - Other nonmedicinal substance allergy status INPATIENT VISIT TRACKING (12 MO.) 08/31/2018 10:28 [facility] TYPE: Surgery DIAGNOSES: 57302. MORBID OBESITY [address]284. Essential (primary) hypertension 73452. Morbid (severe) obesity due to excess calories 75113. Body mass index (BMI) 40.0-44.9, adult [email or web address]
== END 2019-02-23 05:15 | disposition home or self-care (01) ==
LOC: ED 02:32
DX: M79.671 Pain in right foot (principal); I10 Essential (primary) hypertension; Z91.041 Radiographic dye allergy status; Z88.8 Allergy status to other drugs, medicaments and biological substances; Z91.040 Latex allergy status; Z79.899 Other long term (current) drug therapy
CPT/HCPCS: 73630; 84550; 85025; 85651; 86140; 96372; 99283-25; J1885; J7512

== ENCOUNTER 2019-09-13 12:51 | Emergency (ER) | payer OTHER, BC ==
[~2019-09-13] VITALS: Ht 167.6 cm; Wt 89.8 kg
--- OUTSIDE RECORDS SUMMARY | ~2019-09-13 | XMS | Encounter Summary ---
Demographics + + + | Address | [address] | | | [place] [address] | + + + | Home Phone | | + + + | Preferred Language | Unknown | + + + | Marital Status | | + + + | Episcopal Affiliation | CHR | + + + | Race | White | + + + | Ethnic Group | Not or | + + + Author + + + | Author | [facility] | + + + | Organization | [facility] | + + + | Address | Unknown | + + + | Phone | Unavailable | + + + Support + + + + + | Name | Relationship | Address | Phone | + + + + + | Stewart Corbett | ECON | [address] | | | | | [place] | | | | | [address] | | + + + + + Care Team Providers + +------+ + | Care Postdoctoral Scholar Name | Role | Phone | + +------+ + | Aleshia Martinez PA-C | PCP | | + +------+ + Encounter Details +--------+ + + + + | Date | Type | Department | Care Team | Description | +--------+ + + + + | 02/25/ | Telephone | Digestive Health | Es Rausch, | | | 2018 | | Center at [facility] [address] | [address] | | | | | [address] | [facility] [place] | | | | | Mailcode: Center | [address] | | | | | for Health and | [phone] | | | | | [facility], [address] | | | | | | [place], [place] | | | | | | [address] | | | | | | [phone] | | | +--------+ + + + [...] as of this encounter Plan of Treatment +--------+ + + + + | Date | Type | Specialty | Care Team | Description | +--------+ + + + + | 09/22/ | Procedure | Surgery | | | | 2018 | Pass | | | | +--------+ + + + + | 09/22/ | Hospital | Adult Acute Care | Shu, | | | 2019 | Encounter | | MD Bryson [address] | | | | | | [address] | | | | | | [place], [place] | | | | | | [address] | | | | | | [phone] | | | | | | | | +--------+ + + + + | 09/22/ | Surgery | Surgery | Shu, | RECURRENT VENTRAL | | 2018 | | | MD Bryson [address] | HERNIA REPAIR AND | | | | | [address] | EXCISION OF MESH | | | | | [place], [place] | | | | | | [address] | | | | | | [phone] | | | | | | | | +--------+ + + + + documented as of this encounter Visit Diagnoses Not on filedocumented in this encounter"
--- OUTSIDE RECORDS SUMMARY | ~2019-09-13 | XMS | Encounter Summary ---
Demographics + + + | Address | [address] | | | [place] [address] | + + + | Home Phone | | + + + | Preferred Language | Unknown | + + + | Marital Status | | + + + | Yazdanism Affiliation | CHR | + + + | Race | White | + + + | Ethnic Group | Not or | + + + Author + + + | Organization | Unknown | + + + | Address | Unknown | + + + | Phone | Unavailable | + + + Support + + + + + | Name | Relationship | Address | Phone | + + + + + | Stewart Corbett | ECON | [address] | | | | | [place] | | | | | [address] | | + + + + + Care Team Providers + +------+ + | Care Financial Advisor Name | Role | Phone | + +------+ + | Aleshia Martinez PA-C | PCP | | + +------+ + Encounter Details +--------+--------+ + + + | Date | Type | Department | Care Team | Description | +--------+--------+ + + + | 03/15/ | Travel | | | | | 2019 | | | | | +--------+--------+ + + + Social History + + + +--------+ + [...] + + documented as of this encounter Functional Status + + + + | Functional Status | Response | Date of Assessment | + + + + | Because of a physical, mental, or emotional | No | 09/01/2018 | | condition, do you have serious difficulty | | | | doing errands alone such as visiting the | | | | doctor? | | | + + + + + + + + | Cognitive Status | Response | Date of Assessment | + + + + | Because of a physical, mental, or emotional | No | 09/01/2018 | | condition, do you have serious difficulty | | | | concentrating, remembering, or making | | | | decisions? (5 years old or older) | | | + + + + documented as of [...] | Hospital | Adult Acute Care | Shu | | | 2018 | Encounter | | MD Devaughn Massey | | | | | | [address] | | | | | | [place] | | | | | | [address] | | | | | | [phone] | | | | | | | | +--------+ + + + + | 09/22/ | Surgery | Surgery | Shu, | RECURRENT VENTRAL | | 2018 | | | MD Devaughn Massey | HERNIA REPAIR AND | | | | | [address] | EXCISION OF MESH | | | | | [place] | | | | | | [address] | | | | | | [phone] | | | | | | | | +--------+ + + + + documented as of this encounter Visit Diagnoses Not on filedocumented in this encounter"
--- OUTSIDE RECORDS SUMMARY | ~2019-09-13 | XMS | Encounter Summary ---
Demographics + + + | Address | [address] | | | [place] [address] | + + + | Home Phone | | + + + | Preferred Language | Unknown | + + + | Marital Status | | + + + | Mosque Affiliation | CHR | + + + [...] + + + + + | Stewart Crobett | ECON | [address] | | | | | [place] | | | | | [address] | | + + + + + Care Team Providers + +------+ + | Care Slab Miller Operator Name | Role | Phone | [...] | | 2019 | | Center at [facility] [address] | MD [address] | | | | | [address] | [place], [place] | | | | | Mailcode: [place] | [address] | | | | | for Health and | | | | | | [facility] [address] | | | | | | [place], [place] | | | | | | [address] | | | | | | | [...] Procedure | Surgery | | | | 2019 | Pass | | | | +--------+ + + + + | 09/22/ | Hospital | Adult Acute Care | Shu, | | | 2019 | Encounter | | MD Bryson [address] | | | | | | [address] | | | | | | [place], [place] | | | | | | [address] | | | | | | [phone] | | | | | | | | +--------+ + + + + | 09/22/ | Surgery | Surgery | Shu, | RECURRENT VENTRAL | | 2019 | | | MD Bryson [address] | HERNIA REPAIR AND | | | | | [address] | EXCISION OF MESH | | | | | [place], [place] | | | | | | [address] | | | | | | [phone] | | | | | | | | +--------+ + + + + documented as of this encounter Visit Diagnoses Not on filedocumented in this encounter"
--- OUTSIDE RECORDS SUMMARY | ~2019-09-13 | XMS | Encounter Summary ---
Demographics + + + | Address | [address] | | | [place] [address] | + + + | Home Phone | | + + + | Preferred Language | Unknown | + + + | Marital Status | | + + + | Religion Affiliation | CHR | + + + | Race | White | + + + | Ethnic Group | Not or | + + + Author + + + | Author | [facility] | + + + | Organization | [facility] | + + + [...] [place] | | | | | [address] | | + + + + + Care Team Providers + +------+ + | Care Spa Concierge Name | Role | Phone | + +------+ + | Aleshia Martinez PA-C | PCP | | + +------+ + Reason for Visit + + + | Reason | Comments | + + + | Committee Review | | | Recommendations | | + + + Encounter Details +--------+ + + + + | Date | Type | Department | Care Team | Description | +--------+ + + + + | 05/05/ | Committee | Digestive Health | Yumiko Clarke, | Committee Review | | 2018 | Review | Center at [facility] [address] | ACNP [address] | Recommendations | | | | [address] | [place], [place] | | | | | Mailcode: [place] | [address] | | | | | [facility] and | [phone] | | | | | [address] [address] | | | | | | [place], [place] | | | | | | [address] | | | | | | [phone] | | | +--------+ + + + [...] Acute Care | Shu, | | | 2018 | Encounter | | MD Devaughn Massey | | | | | | [address] | | | | | | [place], [place] | | | | | | [address] | | | | | | [phone] | | | | | | | | +--------+ + + + + | 09/22/ | Surgery | Surgery | Shu, | RECURRENT VENTRAL | | 2018 | | | MD Devaughn Massey | HERNIA REPAIR AND | | | | | [address] | EXCISION OF MESH | | | | | [place], [place] | | | | | | [address] | | | | | | [phone] | | | | | | | | +--------+ + + + + documented as of this encounter Visit Diagnoses Not on filedocumented in this encounter"
--- OUTSIDE RECORDS SUMMARY | ~2019-09-13 | XMS | Encounter Summary ---
Demographics + + + | Address | [address] | | | [place] [address] | + + + | Home Phone | | + + + | Preferred Language | Unknown | + + + | Marital Status | | + + + | Amish Affiliation | CHR | + + + [...] [place] | | | | | [address] | | + + + + + Care Team Providers + +------+ + | Care Waste Picker Name | Role | Phone | + [...] + +--------+ + + + + | Authorized | | Nutrition | Diagnoses | Non-[facility] | Fn | | | | | Umbilical | Epic Dept | [facility] | | | | | hernia | | [facility] [address] | | | | | without | | [address] | | | | | obstruction | | Mailcode: | | | | | or gangrene | | [place] [facility] | | | | | | | Health and | | | | | | | Healing, | | | | | | | [address] | | | | | | | [place], [place] | | | | | | | [address] | | | | | | | Phone: | | | | | | | [phone] | | | | | | | Fax: | | | | | | | [phone] | + +--------+ + + + + Encounter Details +--------+---------+ + + + | Date | Type | Department | Care Team | Description | +--------+---------+ + + + | 11/25/ | Office | Digestive Health | Tea Reece, | S/P laparoscopic | | 2019 | Visit | Center at [facility] [address] | [address] | sleeve gastrectomy | | | | [address] | [facility] [address] | (Primary Dx) | | | | Mailcode: Center | [place], [place] | | | | | for Health and | [address] | | | | | [facility], [address] [place] [address] | | | | | | [place], [place] | | | | | | [address] | | | | | | [phone] | | | +--------+---------+ + + + Social History + + [...] + + + + | Weight | 104.1 kg (229 lb 9.6 | 11/25/2018 9:57 AM | | | | oz) | PST | | + + + + + | Height | - | - | | + + + + + | Body Mass Index | 37.06 | 09/29/2018 11:43 AM | | | | | PST | | + + + + + documented in this encounter Functional Status + + + [...] documented as of this encounter Progress Notes Tea Reece, RD - 11/25/2018 10:00 AM PSTFormatting of this note might be different fr om the original. Nutrition Counseling: Post-op Bariatric Surgery Follow-Up Patient referred by: No referring provider defined for this encounter. Documented time of visit: 10:00 to 10:28 (28 minutes [id number] with patient) Surgery: Sleeve Gastrectomy Date of Surgery: 08/31/18 Subjective: Any reported changes: Abd pain which is new this morning after eating low sugar oatmeal wit h banana, reports including banana with foods to aid with constipation Tolerating Bariatric Diet: Yes - except crab cake, some SF foods, and greasy foods Current Physical Activity: Running/playing with new puppy- going to start working out with Objective: Ht Readings from Last 1 Encounters: 09/29/18 1.676 m (5' 6") Wt Readings from Last 2 Encounters: 11/25/18 104.1 kg (229 lb 9.6 oz) 09/29/18 112.8 kg (248 lb 10.9 oz) 08/31/18 119.2 kg (262 lb 11.2 oz) 01/06/18 126.3 kg (278 lb 6.4 oz) Body mass index is 37.06 kg/m. Weight change since surgery: Lost 33 lbs since surgery, 49 lbs since initial dietitian costa mcbride PMHx: Past Medical History: Diagnosis Date Anxiety Asthma Depression Diverticulitis Glucose intolerance (impaired glucose tolerance) HTN (hypertension) Irregular periods Morbid obesity with BMI of 40.0-44.9, adult (HCC) Pneumonia Ventral hernia, recurrent Food logs: Not consistently - [employer] Food choices: eggs/omelets, cheese stick, fruit, Either Quest protein bars/Muscle milk + PB fit daily, SF jelly +PB on saltines Fluid choices: water, Powerade Zero, SF KoolAid, and decaf coffee Supplementation: Changed to vitamin since last visit. Not taking additional calciu m or B-vitamins. Discussed adding calcium (Citracal 2 tabs TID), B12 (sublingual B12 daily), and B-complex in addition to pre-natalee vitamin. Pt interested in getting BA capsules after she uses up pre- vitamins as this would marshall it need for separate supplementation. Assessment: No additional nutrition concerns at this time. Following Bariatric Diet Protocol: Yes Meeting protein goals: Yes Meeting fluid goals: Yes Fluids from meals: Yes Plan: Reviewed nutrition goals after bariatric surgery. Aim for 64 ounces of fluid and 60-80 grams of protein per day. Continue to follow post-surgery bariatric diet progression: Begin stage 4 according to fela atri diet guidelines -Provided written & verbal education/review of stage 4 guidelines -Can begin gradually adding lean red meats, raw/crunchy foods, bread, rice, & pasta -Continue to eat protein foods first; stop eating as soon as you begin to feel full -Choose foods with < 14 g sugar & < 5 g fat per serving -Continue fluids from meals by 30 minutes before & after Continue vitamin & mineral supplementation per post-bariatric surgery guidelines -complete multivitamin & mineral (with iron) supplement, 2/day -0958-5372 mg calcium citrate with vitamin D/day (take in divided doses, not within 2 hour s of multivitamin or iron supplement) -500 mcg/day sublingual B12 supplement (or monthly injections) Continued to reinforce importance of mindful eating. Continue to increase physical activity. Follow up in [address], LD Pager # [phone] signed by Tea Reece RD at 11/25/2018 10:38 AM PSTdocument ed in this encounter Plan of Treatment +--------+ + [...] | 2018 | Encounter | | MD Bryson [address] | | | | | | [address] | | | | | | [place], [place] | | | | | | [address] | | | | | | [phone] | | | | | | | | +--------+ + + + + | 09/22/ | Surgery | Surgery | Shu, | RECURRENT VENTRAL | | 2018 | | | MD Bryson [address] | HERNIA REPAIR AND | | | | | [address] | EXCISION OF MESH | | | | | [place], [place] | | | | | | [address] | | | | | | [phone] | | | | | | | | +--------+ + + + + documented as of this encounter Procedures + +--------+ + + + | Procedure Name | Priori | Date/Time | Associated Diagnosis | Comments | | | ty | | | | + +--------+ + + + | IN MNT RE-ASSESSMNT | Routin | 11/25/2018 | S/P laparoscopic | | | X15MIN | e | 10:34 AM | sleeve gastrectomy | | | | | PST | | | + +--------+ + + + documented in this encounter Visit Diagnoses + + | Diagnosis | + + | S/P laparoscopic sleeve gastrectomy - Primary | + + documented in this encounter
--- OUTSIDE RECORDS SUMMARY | ~2019-09-13 | XMS | Encounter Summary ---
Demographics + + + | Address | [address] | | | [place] [address] | + + + | Home Phone | | + + + | Preferred Language | Unknown | + + + | Marital Status | | + + + | Orthodoxy Affiliation | CHR | + + + [...] [place] | | | | | [address] | | + + + + + Care Team Providers + +------+ + | Care Crime Specialist Name | Role | Phone | + +------+ + | No Pcp Per Patient | PCP | Unavailable | + +------+ + Encounter Details +--------+ + + + + | Date | Type | Department | Care Team | Description | +--------+ + + + + | 09/21/ | Abstract | Digestive Health | Clinic, Surgery | | | 2016 | | [place] [facility] [address] | | | | | | [address] | | | | | | Mailcode: [place] | | | | | | [facility] Health and | | | | | | Healing, [address] | | | | | | [place], [place] | | | | | | [address] | | | | | | [phone] | | | +--------+ + + + [...] | Encounter | | MD Bryson [address] | | | | | [address] | | | | | | [place], [place] | | | | | | [address] | | | | | | [phone] | | | | | | | | +--------+ + + + + | 09/22/ | Surgery | Surgery | Shu, | RECURRENT VENTRAL | | 2019 | | | MD Bryson [address] | HERNIA REPAIR AND | | | | | [address] | EXCISION OF MESH | | | | | [place], [place] | | | | | | [address] | | | | | | [phone] | | | | | | | | +--------+ + + + + documented as of this encounter Visit Diagnoses Not on filedocumented in this encounter"
--- OUTSIDE RECORDS SUMMARY | ~2019-09-13 | XMS | Encounter Summary ---
Demographics + + + | Address | [address] | | | [place] [address] | + + + | Home Phone [...] [place] | | | | | [address] | | + + + + + Care Team Providers + +------+ + | Care School Age Teacher Name | Role | Phone | + +------+ + | No Pcp Per Patient | PCP | Unavailable | + +------+ + Reason for Referral Consultation (Routine) +--------+--------+ + + + + | Status | Reason | Specialty | Diagnoses / | Referred By | Referred To | | | | | Procedures | Contact | Contact | +--------+--------+ + + + + | Closed | | Sports | Diagnoses | Perez | [employer] | | | | Medicine | Morbid | Dalton, | P[address] | | | | | obesity | Ganesh Holden MD | Alonso Regan | | | | | ([facility]) | [address] | Jessica Sepulveda | | | | | Procedures | Alonso Regan | Physician's | | | | | CONSULT TO | Jessica Sepulveda | [place], | | | | | HEALTH | [place], [place] | [address] | | | | | PROMOTION & | [address] | [place], [place] | | | | | SPORTS | Phone: | [address] | | | | | MEDICINE | [phone] | Phone: | | | | | PROVIDER | Fax: | [phone] | | | | | | [phone] | Fax: | | | | | | | [phone] | +--------+--------+ + + + + Consultation (Routine) + + [...] | B[facility] Surg | | | with HAND FORMER | | obesity | Ganesh Holden MD | [address] | | | | | ([facility]) | [address] | [address] | | | | | Procedures | Alonso Regan | Mailcode: | | | | | CONSULT TO | Jessica Sepulveda | Center for | | | | | BARIATRIC | [place], [place] | Health and | | | | | SURGERY | [address] | Healing, | | | | | | Phone: | Building [address] | | | | | | [phone] | [place], [place] | | | | | | Fax: | [address] | | | | | | [phone] | Phone: | | | | | | | [phone] | | | | | | | Fax: | | | | | | | [phone] | + + + + + + + Reason for Visit + + + | Reason | Comments | + + + | New patient | | | consultation | | + + + Consultation (Routine) +--------+--------+ + + + + | Status | Reason | Specialty | Diagnoses / | Referred By | Referred To | | | | | Procedures | Contact | Contact | +--------+--------+ + + + + | Closed | | Surgery | Diagnoses | Non-[facility] | Gs General | | | | | Umbilical | Epic Dept | Surg Chh2 | | | | | hernia | | [address] | | | | | without | | Ave | | | | | obstruction | | Mailcode: | | | | | or mariselagrene | | Center for | | | | | | | Health and | | | | | | | Healing, | | | | | | | Building 2 | | | | | | | [place], [place] | | | | | | | [address] | | | | | | | Phone: | | | | | | | [phone] | | | | | | | Fax: | | | | | | | [phone] | +--------+--------+ + + + + Encounter Details +--------+---------+ + + + | Date | Type | Department | Care Team | Description | +--------+---------+ + + + | 08/18/ | Office | Digestive Health | Darryl Bingham W, | Morbid obesity (HCC) | | 2017 | Visit | Center at [facility] [address] | MD [address] | (Primary Dx) | | | | [address] | [facility] [place] | | | | | Mailcode: Center | [address] | | | | | for Health and | [phone] | | | | | Healing, Building [address] | | | | | | [place], [place] | | | | | | [address] | | | | | | [phone] | | | +--------+---------+ + + + [...] + + + | Blood Pressure | 155/87 | 08/18/2017 12:20 PM | | | | | PDT | | + + + + + | Pulse | 61 | 08/18/2017 12:20 PM | | | | | PDT | | + + + + + | Temperature | 36.5 C (97.7 F) | 08/18/2017 12:20 PM | | | | | PDT | | + + + + + | Respiratory Rate | 16 | 08/18/2017 12:20 PM | | | | | PDT | | + + + + + | Oxygen Saturation | 99% | 08/18/2017 12:20 PM | | | | | PDT | | + + + + + | Inhaled Oxygen | - | - | | | Concentration | | | | + + + + + | Weight | 125.7 kg (277 lb 1.6 | 08/18/2017 12:20 PM | | | | oz) | PDT | | + + + + + | Height | 170.2 cm (5' 7") | 08/18/2017 12:20 PM | | | | | PDT | | + + + + + | Body Mass Index | 43.4 | 08/18/2017 12:20 PM | | | | | PDT | | + + + + + documented in this encounter Progress Notes Darryl Bingham MD - 08/18/2017 12:30 PM PDT ATTENDING NOTE I saw and evaluated the patient. I agree with the findings and the plan of care as ximena pena in the fellow's note. Her risks for hernia formation and therefore recurrent hernia are constipation and morbid obesity. Patient is clear for routine activity as tolerated. Darryl Bingham MD, [facility], FACS DARRYL BINGHAM MD [facility] 6TH FLOOR [address] Mailcode: [place] [address] PATRAToSe cesar Pineda MD - 08/18/2017 12:30 PM PDTFormatting of this note might be different from the orig inal. [facility] Department of Surgery Blue Surgery H&P Author: Ganesh Perez MD MIS Fellow 08/18/2017 12:25 PM ID: Sara AguilarchellepedroJustice is a 32 y.o. female patient with HTN, glucose intolerance, morbi d obesity, asthma and an recurrent ventral hernia here for a surgical consult. CC: abdominal pain HPI: Sara AguilarRuth is a 32 y.o. female patient with HTN, glucose intolerance, morbid ob esity, asthma who had an umbilical hernia in 2013 c/b by infection 1 year later and got expl anted 04/21/2015 and had a delayed repaired 08/27/2015 with mesh c/b a seroma s/p percutaneous drainage. In 05/2016 while doing some heavy lifting she noticed a recurrence. Since then she has noted that the hernia is growing in size and became symptomatic (with localized pain) w ith activities to the point that she is unable to have sex with her . She endorses oc casional nausea with the pain, no emesis, abdominal distention, has normal BMs unless she ta kes the norco for pain control. States that she has never had an SBO. She is sedentary and she is having a really hard time loosing weight and is inetersted in a weight los program. Social Hx Social History Social History Marital status: Spouse name: N/A Number of children: N/A Years of education: N/A Occupational History Not on file. Social History Main Topics Smoking status: Former Smoker Quit date: 10/25/2006 Smokeless tobacco: Never Used Alcohol use No Drug use: No Sexual activity: Not on file Other Topics Concern Not on file Social History Narrative No narrative on file Allergies Allergen Reactions Adhesive Rash Iodine Contrast [Contrast Medium] Rash Latex Rash Naproxen Rash PMH Past Medical History: Diagnosis Date Asthma Glucose intolerance (impaired glucose tolerance) HTN (hypertension) Morbid obesity with BMI of 40.0-44.9, adult (HCC) Ventral hernia, recurrent Medications: No current outpatient prescriptions on file prior to visit. No current facility-administered medications on file prior to visit. Lisinopril Tenormin Albuterol Zertec PRN Flonase PRN PSH Past Surgical History Procedure Laterality Date Diagnostic laparoscopy 2009 Fallopian tube transection 2012 ROS As above; 10-point review of systems otherwise negative. Objective BP 155/87 | Pulse 61 | Temp (Src) 36.5 C (97.7 F) (Oral) | RR 16 | Ht 1.702 m (5' 7") | Wt 125.7 kg (277 lb 1.6 oz) | SpO2 99% | BMI 43.4 kg/(m^2) General: alert, oriented, well nourished, well hydrated, cooperative, NAD Head and neck: no LN, no jaundice Chest: pulmonary vargas well ventilated, no crackles, Heart with normal rhythm, no murmurs or gallops ABD: infraumbilical midline scar, soft, non distended, normal peristalsis, tender to palpat ion in the lower abdomen at the level of a reducible ventral hernia, tympanic to percussion, no rebound tenderness, Extremities: symmetric, no neurovascular compromise, no edema Labs Not available at this time Studies Not available during this visit Assessment: Sara Caballero is a 32 y.o. female patient with HTN, glucose intolerance, morbid ob esity, asthma and a symptomatic recurrent ventral hernia. Due to her weight (BMI 44) a surgical intervention for ventral hernia will most likely recu r and her risk of complications is 35% (per [employer] connie). She is interested to talk to a dieti omer or be enrolled in a weight loss program. We will consider her surgical intervention wou ld be a BMI <40 (will need to lose 11kg), therefore we will refer her with the bariatric ser vice. The entire situation (physiopathology, treatment options, alternatives, risks, benefits, ou tcomes -PARQ-) was explained to the patient who agrees. All the patients concerns and questions were addressed and answered. Plan: -benafiber to avoid constipation -referral with bariatric program -referral to divorce attorney -RTC once she has lost weight The above findings and plan were discussed with Dr. Bingham, who agrees. Ganesh Perez MD Minimally Invasive Surgery Fellow [facility] Pager [phone] documente d in this encounter Plan of Treatment +--------+ [...] Rd | | | | | | [place], [place] | | | | | | [address] | | | | | | [phone] | | | | | | | | +--------+ + + + + | 09/22/ | Surgery | Surgery | Shu, | RECURRENT VENTRAL | | 2018 | | | MD Devaughn Massey | HERNIA REPAIR AND | | | | | [address] | EXCISION OF MESH | | | | | [place], [place] | | | | | | [address] | | | | | | [phone] | | | | | | | | +--------+ + + + + documented as of this encounter Visit Diagnoses + + | Diagnosis | + + | Morbid obesity (HCC) - Primary Morbid obesity | + + documented in this encounter
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
--- OUTSIDE RECORDS SUMMARY | ~2019-09-13 | XMS | Encounter Summary ---
Demographics + + + | Address | [address] | | | [place] [address] | + + + | Home Phone | | + + + | Preferred Language | Unknown | + + + | Marital Status | | + + + | Temple Affiliation | CHR | + + + | Race | White | + + + | Ethnic Group | Not or | + + + Author + + + | Author | [facility] | + + + | Organization | [facility] | + + + | Address | Unknown | + + + | Phone | Unavailable | + + + Support + + + + + | Name | Relationship | Address | Phone | + + + + + | Stewart Corbett | ECON | [address] | | | | | [place] | | | | | [address] | | + + + + + Care Team Providers + +------+ + | Care Health Advisor Name | Role | Phone | [...] | | [address] | Ave [place], [place] | | | | | Mailcode: [place] | [address] | | | | | [facility] and | [phone] | | | | | [place] [address] | | | | | | [place], [place] | | | | | | [address] | | | | | | [phone] | | | +--------+ + + + [...] Rd | | | | | | [place], [place] | | | | | | [address] | | | | | | [phone] | | | | | | | | +--------+ + + + + | 09/22/ | Surgery | Surgery | Shu, | RECURRENT VENTRAL | | 2018 | | | MD Devaughn Massey | HERNIA REPAIR AND | | | | | [address] | EXCISION OF MESH | | | | | [place], [place] | | | | | | [address] | | | | | | [phone] | | | | | | | | +--------+ + + + + documented as of this encounter Visit Diagnoses Not on filedocumented in this encounter"
--- OUTSIDE RECORDS SUMMARY | ~2019-09-13 | XMS | Encounter Summary ---
Demographics + + + | Address | [address] | | | [place] [address] | + + + | Home Phone | | + + + | Preferred Language | Unknown | + + + | Marital Status | | + + + | Jain Affiliation | CHR | + + + | Race | White | + + + | Ethnic Group | Not or | + + + Author + + + | Author | [facility] | + + + | Organization | [facility] | + + + | Address | Unknown | + + + | Phone | Unavailable | + + + Support + + + + + | Name | Relationship | Address | Phone | + + + + + | Stewart Corbett | ECON | [address] | | | | | [place] | | | | | [address] | | + + + + + Care Team Providers + +------+ + | Care High School Art Teacher Name | Role | Phone | + +------+ + | Aleshia Martinez PA-C | PCP | | + +------+ + Reason for Visit + + + | Reason | Comments | + + + | Outside Records | | | Received | | + + + Encounter Details +--------+ + + + + | Date | Type | Department | Care Team | Description | +--------+ + + + + | 04/12/ | Abstract | Digestive Health | Mrata Simmons, | Outside Records | | 2019 | | Center at [facility] [address] | AGACNP [address] | Received | | | | [address] | Ave [place], [place] | | | | | Mailcode: Center | [address] | | | | | for Health and | [phone] | | | | | [facility] [address] | | | | | | [place], [place] | | | | | | [address] | | | | | | [phone] | | | +--------+ + + + [...] Rd | | | | | | [place] | | | | | | [address] | | | | | | [phone] | | | | | | | | +--------+ + + + + | 09/22/ | Surgery | Surgery | Shu, | RECURRENT VENTRAL | | 2019 | | | MD Devaughn Massey | HERNIA REPAIR AND | | | | | [address] | EXCISION OF MESH | | | | | [place], [place] | | | | | | [address] | | | | | | [phone] | | | | | | | | +--------+ + + + + documented as of this encounter Visit Diagnoses Not on filedocumented in this encounter"
--- OUTSIDE RECORDS SUMMARY | ~2019-09-13 | XMS | Encounter Summary ---
Demographics + + + | Address | [address] | | | [place] [address] | + + + | Home Phone [...] [place] | | | | | [address] | | + + + + + Care Team Providers + +------+ + | Care Pipe Machine Operator Name | Role | Phone | + +------+ + | Aleshia Martinez PA-C | PCP | | + +------+ + Reason for Visit + + + | Reason | Comments | + + + | Postoperative visit | | + + + Encounter Details +--------+---------+ + + + | Date | Type | Department | Care Team | Description | +--------+---------+ + + + | 11/25/ | Office | Digestive Health | Shanon Etienne ACNP | S/P laparoscopic | | 2019 | Visit | Center at [facility] [address] | [address] | sleeve gastrectomy | | | | [address] | [address] [place], | (Primary Dx); | | | | Mailcode: Center | [place] [address] | Vitamin D | | | | for Health and | [phone] | deficiency; | | | | Healing, [address] | | Gastroesophageal | | | | [place], [place] | | reflux disease, | | | | [address] | | esophagitis presence | | | | [phone] | | not specified; | | | | | | Intertriginous | | | | | | candidiasis | +--------+---------+ + + + Social History [...] Pressure | 130/88 | 11/25/2018 10:42 AM | | | | | PST | | + + + + + | Pulse | 72 | 11/25/2018 10:42 AM | | | | | PST | | + + + + + | Temperature | 36.7 C (98.1 F) | 11/25/2018 10:42 AM | | | | | PST | | + + + + + | Respiratory Rate | 17 | 11/25/2018 10:42 AM | | | | | PST | | + + + + + | Oxygen Saturation | - | - | | + + + + + | Inhaled Oxygen | - | - | | | Concentration | | | | + + + + + | Weight | 104.1 kg (229 lb 9.6 | 11/25/2018 10:42 AM | | | | oz) | PST | | + + + + + | Height | 167.6 cm (5' 5.98") | 11/25/2018 10:42 AM | | | | | PST | | + + + + + | Body Mass Index | 37.08 | 11/25/2018 10:42 AM | | | | | PST [...] of this encounter Patient Instructions Patient Instructions Shanon Etienne ACNP - 11/25/2018 10:50 AM PSTKeep taking omeprazole, but take at least 30min to 1 hour before eating anything. If your systems continue, [employer], call us, and we can consider adding another dose at nigh t, or increasing the dose. OR adding something else as needed. Your next visit is in 3 months for 6 month post op visit. AT this visit we will do labs to check vitamins levels. documented in this encounter Progress Notes Rocio Lundberg MA - 11/25/2018 10:50 AM PSTPatient is here today to have blood drawn. Blood drawn per physicians orders. Venipuncture performed in Right Antecubital 11/25/2018 11:35 AM Pt tolerated procedure well. Venipuncture performed without difficulty. eShanon charles ACNP - 0 11/25/2018 10:50 AM PST BARIATRIC SURGERY FOLLOW-UP ID: Sara AguilarRuth is a 33 y.o. patient who underwent a sleeve gastrectomy on with . The patient is now 3 months post operative and recovering well. Subjective: Doing well with diet, has not increased execise yet but plans to go on first run with her h usband soon GERD since surgery Did not have GERD before surgery except with certain foods before surgery Weight at time of surgery : 262--> 254-->229 (total 33 lb weight loss) Ht 1.676 m (5' 5.98") | Wt 104.1 kg (229 lb 9.6 oz) | BMI 37.08 kg/(m^2) History: Past Medical History: Diagnosis Date Anxiety Asthma Depression Diverticulitis Glucose intolerance (impaired glucose tolerance) HTN (hypertension) Irregular periods Morbid obesity with BMI of 40.0-44.9, adult (HCC) Pneumonia Ventral hernia, recurrent Past Surgical History Procedure Laterality Date Diagnostic laparoscopy 2009 Fallopian tube transection 2012 Ventral hernia repair with mesh 2013 Hernia repair 2014 Addition of mesh implant to ventral hernia repair 2014 Laparoscopic partial surgical removal of fallopian tube Laparoscopic sleeve gastrectomy 08/31/2018 VTDANIA Downing Social History Social History Marital status: Spouse name: N/A Number of children: N/A Years of education: N/A Occupational History unemployed Social History Main Topics Smoking status: Former Smoker Packs/day: 0.10 Years: 5.00 Types: Cigarettes Quit date: 10/25/2006 Smokeless tobacco: Never Used Alcohol use No Drug use: Yes Types: Oral Comment: marijuana - tinture Sexual activity: Not on file Other Topics Concern Not on file Social History Narrative No narrative on file Family History Problem Relation Diabetes Mother High blood pressure Mother hyperlipidemia High blood pressure Brother hyperlipidemia Allergies Brother Allergies Allergies Allergen Reactions Adhesive Rash Iodine Contrast [Contrast Medium] Rash Latex Rash Naproxen Rash Medications Current Outpatient Prescriptions: ALBUTEROL INHL, Inhale 2 puffs as needed. , Disp: , Rfl: atenolol 25 mg oral tablet, Take 2 tablets by mouth once daily. Hold for 1 week, Disp: , Rf l: Bacillus coagulans/inulin (PROBIOTIC WITH PREBIOTIC ORAL), Take by mouth., Disp: , Rfl: cetirizine 10 mg oral tablet, Take 10 mg by mouth as needed. , Disp: , Rfl: Cholecalciferol (Vitamin D3) (VITAMIN D3) 5,000 unit oral tablet, Take 1 tablet by mouth on ce daily. Indications: Vitamin D Deficiency (Patient taking differently: Take 1,000 Units by mouth once daily. Indications: Vitamin D Deficiency), Disp: 60 tablet, Rfl: 3 desogestrel-ethinyl estradiol (ENSKYCE) 0.15-0.03 mg oral tablet, Take 1 tablet by mouth on ce daily. Hold for two weeks after surgery., Disp: 1 Package, Rfl: diazePAM 2 mg oral tablet, Take 1 tablet by mouth three times daily. Stop taking if not hel pful with spasms, Disp: 15 tablet, Rfl: 0 ergocalciferol 50,000 unit oral capsule, Take 1 capsule by mouth every seven days. Indicati ons: Vitamin D Deficiency (High Dose Therapy), Disp: 52 capsule, Rfl: 0 fluticasone 50 mcg/actuation nasal spray,suspension, Instill 1 spray into each nostril as n eeded. , Disp: , Rfl: hyoscyamine (LEVSIN) 0.125 mg oral tablet, Take 1 tablet by mouth every four hours as neede d. Indications: muscle spasms, Disp: 30 tablet, Rfl: 0 ibuprofen 200 mg oral capsule, Take 1 capsule by mouth as needed. Hold for 1 week after mitchell bennie, Disp: , Rfl: methocarbamol 500 mg oral tablet, Take 2 tablets by mouth three times daily as needed. May break into small pieces if needed., Disp: 30 tablet, Rfl: 0 omeprazole 20 mg oral capsule,delayed release(DR/EC), Take 1 capsule by mouth once daily in the morning., Disp: 30 capsule, Rfl: 2 sertraline 50 mg oral tablet, Take 75 mg by mouth once daily. , Disp: , Rfl: ursodiol 250 mg oral tablet, Take 1 tablet by mouth two times daily. Take with food., Disp: 60 tablet, Rfl: 4 Bariatric Medications: MVI with iron twice daily: yes Calcium citrate 1500mg daily: yes Vitamin D 1000 mg daily : yes B12 500mcg SL daily or monthly shot: yes H2RB/PPI daily: yes Actigall/ ursodiol 300 BID: yes Narcotics: no ROS: All review of systems negative except what is noted in HPI GI Symptoms: Nausea: None Dysphagia: None Vomiting: None Heartburn: None Abd Pain: None Constipation: None Diarrhea: None Physical Exam General: Alert, oriented, NAD Respiratory: Breathing comfortably Cardiovascular: RRR Abdomen: soft, non tender, non distended, lap incisions sites are without drainage, surroun ding erythema or induration. Extremities: warm, well perfused, no edema noted Assessment/Plan: Sara Caballero is a 33 y.o. female who is 3 months S/P sleeve gastrectomy. # S/p sleeve gastrectomy recovering well. -Denies nausea, vomiting, diarrhea or constipation -continue with protein goal of 60-80g/day -continue with fluid intake goal of at least 64oz/day -Discussed diet choices, healthy foods, ways to increase protein and iron -Discussed daily exercise and types of exercises # Intertriginous candidiasis/ bilateral groin -use corn starch to help reduce moisture -nystain powder ordered -place a towel between skin folds to reduce friction and promote drying -contact us if you have further problems # GERD -continue taking daily PPI. Take it 30-1 hour before meals in the morning. -advised to contact us if her symptoms worsen. Can consider increasing the dose, adding ano ther dose at night, or adding a H2B PRN. # Gallstone Prevention -Use ursodiol ( Actigall) for first 6 months after surgery, it prevents gallstones. Return to bariatric clinic in 3 months for 6 month post op visit See your primary care provider for adjusting any other medications. Call if any abdominal pain, n/v/d or other issues. Pt agrees to plan and will call and/or send [place] message if any issues. Start time 1050, end time 1120. I spent a total of 30 minutes face to face with this patie nt. Over 50% of visit was in counseling. Shanon Etienne, MSN, AG-ACNP, STRIPPER OPAQUER Bariatric Surgery Nurse Practitioner [facility] | [address] [address] | [place], [place] | [address] | documented in this enco unter Plan of Treatment +--------+ + + + [...] Rd | | | | | | [facility] [place] | | | | | | [address] | | | | | | [phone] | | | | | | | | +--------+ + + + + | 09/22/ | Surgery | Surgery | Shu | RECURRENT VENTRAL | | 2018 | | | MD Devaughn Massey | HERNIA REPAIR AND | | | | | [address] | EXCISION OF MESH | | | | | [place], [place] | | | | | | [address] | | | | | | [phone] | | | | | | | | +--------+ + + + + documented as of this encounter Visit Diagnoses + + | Diagnosis | + + | S/P laparoscopic sleeve gastrectomy - Primary | + + | Vitamin D deficiency | + + | Gastroesophageal reflux disease, esophagitis presence not specified | + + | Intertriginous candidiasis Candidiasis of skin and nails | + + documented in this encounter
--- OUTSIDE RECORDS SUMMARY | ~2019-09-13 | XMS | Encounter Summary ---
Demographics + + + | Address | [address] | | | [place] [address] | + + + | Home Phone [...] [place] | | | | | [address] | | + + + + + Care Team Providers + +------+ + | Care Caser Shoe Parts Name | Role | Phone | + +------+ + | Aleshia Martinez PA-C | PCP | | + +------+ + Reason for Visit + + + | Reason | Comments | + + + | Patient's Condition | | | Worsened | | + + + Encounter Details +--------+ + + + + | Date | Type | Department | Care Team | Description | +--------+ + + + + | 09/13/ | Telephone | Digestive Health | Shu, | Patient's Condition | | 2019 | | Center at [facility] [address] | MD Bryson [address] | Worsened | | | | [address] | [facility] Jessica | | | | | Mailcode: Center | [place], [place] | | | | | [facility] and | [address] | | | | | [facility] 2 | [phone] | | | | | [place], [place] | | | | | | [address] | | | | | | [phone] | | | +--------+ + + + [...] Rd | | | | | | [place], [place] | | | | | | [address] | | | | | | [phone] | | | | | | | | +--------+ + + + + | 09/22/ | Surgery | Surgery | Shu, | RECURRENT VENTRAL | | 2018 | | | MD Devaughn Massey | HERNIA REPAIR AND | | | | | [address] | EXCISION OF MESH | | | | | [place], [place] | | | | | | [address] | | | | | | [phone] | | | | | | | | +--------+ + + + + documented as of this encounter Visit Diagnoses Not on filedocumented in this encounter"
--- OUTSIDE RECORDS SUMMARY | ~2019-09-13 | XMS | Encounter Summary ---
Demographics + + + | Address | [address] | | | [place] [address] | + + + | Home Phone | | + + + | Preferred Language | Unknown | + + + | Marital Status | | + + + | Spiritism Affiliation | CHR | + + + | Race | White | + + + | Ethnic Group | Not or | + + + Author + + + | Author | [facility] | + + + | Organization | [facility] | + + + | Address | Unknown | + + + | Phone | Unavailable | + + + Support + + + + + | Name | Relationship | Address | Phone | + + + + + | Stewart Corbett | ECON | [address] | | | | | [place] | | | | | [address] | | + + + + + Care Team Providers + +------+ + | Care Latex Thread Machine Operator Name | Role | Phone [...] the | | 2019 | Encounter | [facility] at [facility] [address] | MD Bryson [address] | hernia | | | | [address] | [address] | | | | | Mailcode: Center | [place], [place] | | | | | for Health and | [address] | | | | | [facility], [address] | [phone] | | | | | [place], [place] | | | | | | [address] | | | | | | [phone] | | | +--------+ + + + [...] Rd | | | | | | [place], [place] | | | | | | [address] | | | | | | [phone] | | | | | | | | +--------+ + + + + | 09/22/ | Surgery | Surgery | Shu, | RECURRENT VENTRAL | | 2018 | | | MD Devaughn Massey | HERNIA REPAIR AND | | | | | [address] | EXCISION OF MESH | | | | | [place], [place] | | | | | | [address] | | | | | | [phone] | | | | | | | | +--------+ + + + + documented as of this encounter Visit Diagnoses Not on filedocumented in this encounter"
--- OUTSIDE RECORDS SUMMARY | ~2019-09-13 | XMS | Encounter Summary ---
Demographics + + + | Address | [address] | | | [place] [address] | + + + | Home Phone [...] [place] | | | | | [address] | | + + + + + Care Team Providers + +------+ + | Care Fugitive Detective Name | Role | Phone | + [...] Description | +--------+---------+ + + + | 05/11/ | Office | Digestive Health | | Morbid obesity with | | 2017 | Visit | Center at [facility] [address] | | BMI of 40.0-44.9, | | | | [address] | | adult (HCC) (Primary | | | | Mailcode: Center | | Dx) | | | | for Health and | | | | | | [facility], [address] | | | | | | [place], [place] | | | | | | [address] | | | | | | [phone] | | | +--------+---------+ + + + [...] + + + + | Weight | 124.4 kg (274 lb 3.2 | 03/04/2018 3:22 PM | | | | oz) | PDT | | + + + + + | Height | - | - | | + + + + + | Body Mass Index | 44.26 | 02/28/2018 2:35 PM | | | | | PDT | | + + + + + documented in this encounter Progress Notes Chetna Alves, JOEL - 03/04/2018 2:00 PM PDT Referring Provider: [facility], Pre-Bariatric Surgery Class Pre-Surgery Class #1 prior to having Tobisa-En-Y gastric bypass surgery or Sleeve Gastrectomy . Documented Time of Class: 2:00/3:00 until 3:00/4:00 (60 minutes lyjd-qx-cgys with patient) OBJECTIVE: Height: Ht Readings from Last 1 Encounters: 02/28/18 1.676 m (5' 6") Ht Readings from Last 1 Encounters: 02/28/18 1.676 m (5' 6") Wt Readings from Last 2 Encounters: 03/04/18 124.4 kg (274 lb 3.2 oz) 02/28/18 124.5 kg (274 lb 8 oz) 01/06/18 126.3 kg (278 lb 6.4 oz) WEIGHT ONLY 08/18/2017 Weight (lbs) 277 lbs 2 oz Weight (kg) 125.692 kg BMI: Body mass index is 44.26 kg/m. Teaching Methods: PowerPoint and verbal presentation [...] -Taking vitamins and minerals every day 2. Mindful eating, emotional eating 3. Pre-surgery diet (plate method, label reading, keeping food logs) Assessment: Pt remained attentive throughout the class and/or participated by asking questi ons or sharing information. Yes Chetna Alves RD, [facility], [facility] Bariatrics [phone] documented in this enco unter Plan of Treatment +--------+ + + + + | Date | Type | Specialty | Care Team | Description | +--------+ + + + + | 09/22/ Procedure | Surgery | | | | 2019 | Pass | | | | +--------+ + + + + | 09/22/ | Hospital | Adult Acute Care | Shu, | | | 2019 | Encounter | | MD Bryson [address] | | | | | | [address] | | | | | | [facility] [place] | | | | | | [address] | | | | | | [phone] | | | | | | | | +--------+ + + + + | 09/22/ | Surgery | Surgery | Shu, | RECURRENT VENTRAL | | 2018 | | | MD Bryson [address] | HERNIA REPAIR AND | | | | | [address] | EXCISION OF MESH | | | | | [facility] [place] | | | | | | [address] | | | | | | [phone] | | | | | | | | +--------+ + + + + documented as of this encounter Visit Diagnoses + + | Diagnosis | + + | Morbid obesity with BMI of 40.0-44.9, adult (HCC) - Primary | + + documented in this encounter
--- OUTSIDE RECORDS SUMMARY | ~2019-09-13 | XMS | Encounter Summary ---
Demographics + + + | Address | [address] | | | [place] [address] | + + + | Home Phone | | + + + | Preferred Language | Unknown | + + + | Marital Status | | + + + | Islam Affiliation | CHR | + + + [...] [place] | | | | | [address] | | + + + + + Care Team Providers + +------+ + | Care Boiler Water Tester Name | Role | Phone | + +------+ + | Aleshia Martinez PA-C | PCP | | + +------+ + Encounter Details +--------+ + + + + | Date | Type | Department | Care Team | Description | +--------+ + + + + | 04/28/ | Documentati | Digestive Health | Yumiko Clarke, | | | 2018 | on | Center at [facility] [address] | ACNP [address] | | | | | [address] | [place], [place] | | | | | Mailcode: Center | [address] | | | | | for Health and | [phone] | | | | | Healing, Building [address] | | | | | | [place], [place] | | | | | | [address] | | | | | | [phone] | | | +--------+ + + + [...] Rd | | | | | | [place], [place] | | | | | | [address] | | | | | | [phone] | | | | | | | | +--------+ + + + + | 09/22/ | Surgery | Surgery | Shu, | RECURRENT VENTRAL | | 2018 | | | MD Bryson [address] | HERNIA REPAIR AND | | | | | [address] | EXCISION OF MESH | | | | | [place] | | | | | | [address] | | | | | | [phone] | | | | | | | | +--------+ + + + + documented as of this encounter Visit Diagnoses Not on filedocumented in this encounter"
--- OUTSIDE RECORDS SUMMARY | ~2019-09-13 | XMS | Encounter Summary ---
Demographics + + + | Address | [address] | | | [place] [address] | + + + | Home Phone | | + + + | Preferred Language | Unknown | + + + | Marital Status | | + + + | Scientology Affiliation | CHR | + + + [...] [place] | | | | | [address] | | + + + + + Care Team Providers + +------+ + | Care Senior Medical Billing Specialist Name | Role | Phone | [...] | Pain | Diagnoses | Clarke, | Public Safety Teacher Psych | | | | Management | Morbid | Yumiko, ACNP | [facility] [address] | | | | | obesity with | [address] | | | | | BMI of | [address] | Mailcode: | | | | | 40.0-44.9, | [place], [place] | [address] Center | | | | | adult (HCC) | [address] | for Health | | | | | Borderline | Phone: | and Healing, | | | | | diabetes | [phone] | Building [address], | | | | | Essential | Fax: | 15th Floor | | | | | hypertension | [phone] | [place], [place] | | | | | Mild | | [address] | | | | | intermittent | | Phone: | | | | | asthma | | [phone] | | | | | without | | Fax: | | | | | complication | | [phone] | | | | | Anxiety | [...] 04/20/ | Office | [facility] | Dylan Abraham, | Morbid obesity with | | 2017 | Visit | [address] | PhD [address] | BMI of 40.0-44.9, | | | | [address] Mailcode: | [address] [place], [place] | adult ([facility]) (Primary | | | | [facility] Center for | [address] | Dx); Generalized | | | | Health and Healing, | [phone] | anxiety disorder; | | | | Building | | Borderline diabetes; | | | | Floor [place], [place] | | Major depressive | | | | [address] | | disorder, recurrent, | | | | [phone] | | in partial | | | | | | remission ([facility]); | | | | | | [...] Name: Sara Caballero : 1985 Medical Record: [id number] Age:32 y.o. Weight: 278 lbs BMI: 44 Identifying Information: Sara Caballero is a 32 y.o. female who lives with her emily band, and her cousin and the cousin's 4 children in [place], [place]. She was referred for psy chological [...] yle. She reported doing most of the body maker machine setter. For enjoyment the patient does craft s, [...] to improve her consistency with following the biophysics teacher's recommendations, especially eating more consistently throughout the day. 4. She should continue her current walking and pool exercise routines. 5. She is urged to participate in a Bariatric Surgery Support Group. Total time I spent was approximately 50 minutes sibq-lh-lppq with the patient and approxima tely 1 hour 50 minutes of rlr-aqmx-ph-face testing, interpreting and synthesizing results. Dylan Abraham, PhD [facility] [address] Mail Code: [address] [address] documented in this en counter [...] [place] | | | | | | [address] | | | | | | [phone] | | | | | | | | +--------+ + + + + | 09/22/ | Surgery | Surgery | Shu, | RECURRENT VENTRAL | | 2018 | | | MD Devaughn Massey | HERNIA REPAIR AND | | | | | [address] | EXCISION OF MESH | | | | | [place] | | | | | | [address] | | | | | | [phone] | | | | | | | [...]
--- OUTSIDE RECORDS SUMMARY | ~2019-09-13 | XMS | Encounter Summary ---
Demographics + + + | Address | [address] | | | [place] [address] | + + + | Home Phone | | + + + | Preferred Language | Unknown | + + + | Marital Status | | + + + | Taoism Affiliation | CHR | + + + [...] [place] | | | | | [address] | | + + + + + Care Team Providers + +------+ + | Care Meat Processing Center Manager Name | Role | Phone | [...] | 2018 | on | Center at [facility] [address] | | | | | | [address] | | | | | | Mailcode: Center | | | | | | for Health and | | | | | | Healing, [address] | | | | | | [place], [place] | | | | | | [address] | | | | | | [phone] | | | +--------+ + + + [...] Acute Care | Shu | | | 2019 | Encounter | | MD Bryson [address] | | | | | | [address] | | | | | | [place], [place] | | | | | | [address] | | | | | | [phone] | | | | | | | | +--------+ + + + + | 09/22/ | Surgery | Surgery | Shu, | RECURRENT VENTRAL | | 2019 | | | MD Bryson [address] | HERNIA REPAIR AND | | | | | [address] | EXCISION OF MESH | | | | | [place], [place] | | | | | | [address] | | | | | | [phone] | | | | | | | | +--------+ + + + + documented as of this encounter Visit Diagnoses Not on filedocumented in this encounter"
--- OUTSIDE RECORDS SUMMARY | ~2019-09-13 | XMS | Encounter Summary ---
Demographics + + + | Address | [address] | | | [place] [address] | + + + | Home Phone | | + + + | Preferred Language | Unknown | + + + | Marital Status | | + + + | Buddhist Affiliation | CHR | + + + | Race | White | + + + | Ethnic Group | Not or | + + + Author + + + | Author | [facility] | + + + | Organization | [facility] | + + + | Address | Unknown | + + + | Phone | Unavailable | + + + Support + + + + + | Name | Relationship | Address | Phone | + + + + + | Stewart Corbett | ECON | [address] | | | | | [place] | | | | | [address] | | + + + + + Care Team Providers + +------+ + | Care Fine Arts Teacher Name | Role | Phone | [...] | 2017 | Visit | Center at [facility] [address] | | body mass index of | | | | [address] | | 40.0-44.9 in adult | | | | Mailcode: Center | | ([facility]) (Primary Dx) | | | | for Health and | | | | | | [facility], [facility] 2 | | | | | | [place], [place] | | | | | | [address] | | | | | | [phone] | | | +--------+---------+ + + + [...] of Class: 2:00/3:00 until 3:00/4:00 (60 minutes bbpd-cf-ygmt with patient) OBJECTIVE: Height: Ht Readings from [...] sharing information. Yes Carmen Dumont RD,LD Pager# [phone] Phone: [phone] documented in this en counter Plan of [...] Rd | | | | | | [place], [place] | | | | | | [address] | | | | | | [phone] | | | | | | | | +--------+ + + + + | 09/22/ | Surgery | Surgery | Shu, | RECURRENT VENTRAL | | 2019 | | | MD Bryson [address] | HERNIA REPAIR AND | | | | | [address] | EXCISION OF MESH | | | | | [facility] [place] | | | | | | [address] | | | | | | [phone] | | | | | | | | +--------+ + + + + documented as of this encounter Visit Diagnoses + + | Diagnosis | + + | Morbid obesity with body mass index of 40.0-44.9 in adult ([facility]) - Primary | + + documented in this encounter
--- OUTSIDE RECORDS SUMMARY | ~2019-09-13 | XMS | Encounter Summary ---
Demographics + + + | Address | [address] | | | [place] [address] | + + + | Home Phone [...] [place] | | | | | [address] | | + + + + + Care Team Providers + +------+ + | Care Woodworking Bench Carpenter Name | Role | Phone | + +------+ + | Aleshia Martinez PA-C | PCP | | + +------+ + Encounter Details +--------+ + + + + | Date | Type | Department | Care Team | Description | +--------+ + + + + | 04/13/ | Abstract | Digestive Health | Clinic, Surgery | | | 2019 | | [place] at [facility] [address] | | | | | | [address] | | | | | | Mailcode: [place] | | | | | | for Health and | | | | | | Healing, [address] | | | | | | [place], [place] | | | | | | [address] | | | | | | [phone] | | | +--------+ + + + [...] Rd | | | | | | [place], [place] | | | | | | [address] | | | | | | [phone] | | | | | | | | +--------+ + + + + | 09/22/ | Surgery | Surgery | Shu, | RECURRENT VENTRAL | | 2019 | | | MD Bryson [address] | HERNIA REPAIR AND | | | | | [address] | EXCISION OF MESH | | | | | [place], [place] | | | | | | [address] | | | | | | [phone] | | | | | | | | +--------+ + + + + documented as of this encounter Visit Diagnoses Not on filedocumented in this encounter"
--- OUTSIDE RECORDS SUMMARY | ~2019-09-13 | XMS | Encounter Summary ---
Demographics + + + | Address | [address] | | | [place] [address] | + + + | Home Phone [...] [place] | | | | | [address] | | + + + + + Care Team Providers + +------+ + | Care Model Maker Plastic Name | Role | Phone | + +------+ + | Aleshia Martinez PA-C | PCP | | + +------+ + Encounter Details +--------+ + + + + | Date | Type | Department | Care Team | Description | +--------+ + + + + | 02/25/ | Telephone | Digestive Health | Es Rausch, | | | 2018 | | Center at [facility] [address] | [address] | | | | | [address] | [facility] [place] | | | | | Mailcode: Center | [address] | | | | | for Health and | [phone] | | | | | [facility], [address] | | | | | | [place], [place] | | | | | | [address] | | | | | | [phone] | | | +--------+ + + + [...] Rd | | | | | | [place], [place] | | | | | | [address] | | | | | | [phone] | | | | | | | | +--------+ + + + + | 09/22/ | Surgery | Surgery | Shu, | RECURRENT VENTRAL | | 2018 | | | MD Bryson [address] | HERNIA REPAIR AND | | | | | [address] | EXCISION OF MESH | | | | | [place], [place] | | | | | | [address] | | | | | | [phone] | | | | | | | | +--------+ + + + + documented as of this encounter Visit Diagnoses Not on filedocumented in this encounter"
--- OUTSIDE RECORDS SUMMARY | ~2019-09-13 | XMS | Encounter Summary ---
Demographics + + + | Address | [address] | | | [place] [address] | + + + | Home Phone [...] [place] | | | | | [address] | | + + + + + Care Team Providers + +------+ + | Care Wood Experimental Mechanic Name | Role | Phone | [...] | 2018 | Encounter | Center at [facility] [address] | [address] | am | | | | [address] | Jessica Sepulveda [facility] [place], | | | | | Mailcode: Center | [place] [address] | | | | | for Health and | | | | | | Healing, [facility] 2 | | | | | | [place], [place] | | | | | | [address] | | | | | | [phone] | | | +--------+ + + + [...] Rd | | | | | | [place], [place] | | | | | | [address] | | | | | | [phone] | | | | | | | | +--------+ + + + + | 09/22/ | Surgery | Surgery | Shu, | RECURRENT VENTRAL | | 2018 | | | MD Devaughn Massey | HERNIA REPAIR AND | | | | | [address] | EXCISION OF MESH | | | | | [place], [place] | | | | | | [address] | | | | | | [phone] | | | | | | | | +--------+ + + + + documented as of this encounter Visit Diagnoses Not on filedocumented in this encounter"
--- OUTSIDE RECORDS SUMMARY | ~2019-09-13 | XMS | Encounter Summary ---
Demographics + + + | Address | [address] | | | [place] [address] | + + + | Home Phone | | + + + | Preferred Language | Unknown | + + + | Marital Status | | + + + | Confucianist Affiliation | CHR | + + + | Race | White | + + + | Ethnic Group | Not or | + + + Author + + + | Author | [facility] | + + + | Organization | [facility] | + + + | Address | Unknown | + + + | Phone | Unavailable | + + + Support + + + + + | Name | Relationship | Address | Phone | + + + + + | Stewart Corbett | ECON | [address] | | | | | [place] | | | | | [address] | | + + + + + Care Team Providers + +------+ + | Care Pbx Mechanic Name | Role | Phone | + +------+ + | Aleshia Martinez PA-C | PCP | | + +------+ + Encounter Details +--------+ + + + + | Date | Type | Department | Care Team | Description | +--------+ + + + + | 07/12/ | Abstract | Digestive Health | Clinic, Surgery | | | 2017 | | [place] at [facility] [address] | | | | | | [address] | | | | | | Mailcode: [place] | | | | | | for Health and | | | | | | Healing, [address] | | | | | | [place], [place] | | | | | | [address] | | | | | | [phone] | | | +--------+ + + + [...] Rd | | | | | | [place], [place] | | | | | | [address] | | | | | | [phone] | | | | | | | | +--------+ + + + + | 09/22/ | Surgery | Surgery | [place], | RECURRENT VENTRAL | | 2019 | | | MD Bryson [address] | HERNIA REPAIR AND | | | | | [address] | EXCISION OF MESH | | | | | [place], [place] | | | | | | [address] | | | | | | [phone] | | | | | | | | +--------+ + + + + documented as of this encounter Visit Diagnoses Not on filedocumented in this encounter"
--- OUTSIDE RECORDS SUMMARY | ~2019-09-13 | XMS | Encounter Summary ---
Demographics + + + | Address | [address] | | | [place] [address] | + + + | Home Phone [...] [place] | | | | | [address] | | + + + + + Care Team Providers + +------+ + | Care Galley Stripper Name | Role | Phone | + +------+ + | Aleshia Martinez PA-C | PCP | | + +------+ + Reason for Visit + + + | Reason | Comments | + + + | Return Patient | | + + + Consultation (Routine) [...] | | | or gangrene | | Center for | | | | | | | Health and | | | | | | | Healing, | | | | | | | Building 2 | | | | | | | [place], [place] | | | | | | | [address] | | | | | | | Phone: | | | | | | | [phone] | | | | | | | Fax: | | | | | | | [phone] | +--------+--------+ + + + + Encounter Details +--------+---------+ + + + | Date | Type | Department | Care Team | Description | +--------+---------+ + + + | 02/28/ | Office | Digestive Health | Es Bingham, | Morbid obesity with | | 2017 | Visit | [facility] at [facility] [address] | MD [address] | BMI of 40.0-44.9, | | | | [address] | [place], [place] | adult (HCC) (Primary | | | | Mailcode: Center | [address] | Dx); [facility] | | | | for Health and | [phone] | diabetes; Essential | | | | Healing, [address] | | hypertension; | | | | [place], [place] | | Ventral hernia with | | | | [address] | | obstruction and | | | | [phone] | | without gangrene | +--------+---------+ + [...] + + + | Blood Pressure | 133/90 | 02/28/2018 2:35 PM | | | | | PDT | | + + + + + | Pulse | 70 | 02/28/2018 2:35 PM | | | | | PDT | | + + + + + | Temperature | 36.6 C (97.9 F) | 02/28/2018 2:35 PM | | | | | PDT | | + + + + + | Respiratory Rate | 16 | 02/28/2018 2:35 PM | | | | | PDT | | + + + + + | Oxygen Saturation | - | - | | + + + + + | Inhaled Oxygen | - | - | | | Concentration | | | | + + + + + | Weight | 124.5 kg (274 lb 8 | 02/28/2018 2:35 PM | | | | oz) | PDT | | + + + + + | Height | 167.6 cm (5' 6") | 02/28/2018 2:35 PM | | | | | PDT | | + + + + + | Body Mass Index | 44.31 | 02/28/2018 2:35 PM | | | | | PDT | | + + + + + documented in this encounter Progress Notes Es Bingham MD - 02/28/2018 2:25 PM PDT ATTENDING NOTE I saw and evaluated the patient. I agree with the findings and the plan of care as ximena pena in the resident s note. Es Bingham MD, [facility], FACS ES BINGHAM MD [facility] 6TH FLOOR [address] Mailcode: [facility] [place] [address] Nba Finn MD - 02/28/2018 2:25 PM PDT [facility] Department of Surgery [facility] Clinic Note Attending: Es Bingham MD Author: Nba Amaya MD Date: 02/28/18 ID: Sara Caballero is a 32 y.o. female with a history of HTN, glucose intolerance, morbid obesity, asthma and recurrent ventral hernia. She was last seen in clinic on 08/08/20 17 where she was referred to the bariatric program and nutrition to discuss weight loss opti ons given her high risk of recurrence with repair and 35% complication rate. Interval History: - She las last 1kg since July based on chart review, states she has been underalot of st ress and could do better with diet - tried shakology and another 21day diet and stated that the portion size was too big for h er - working with PT and exercising using a stair climber but hurt her foot because she thinks she was overdoing it - is pursuing bariatric surgery, date has not been scheduled - feels depressed since her was gone to [facility], improving since he returned home on 02/25, no SI or HI * increased sertrline, taking vitamin d qweekly 50,000 mg - ED on 01/22 for abdominal pain and emesis after eating costoc premade pasta dinner. - Reports she coughed and has a sudden sharp 7-8/10 pain at the site of her hernia. She was able to reduce the hernia but then began vomiting food. - Reports no diarrhea, taking stool softeners, has had 2BMs today - The intense initial pain resolved with reduction - has been on a restricted diet because she is concerned about recurrence of the pain. Eati ng mostly salads and liquids. - has breast skin lesion removed on the 02/25 and carpal tunnel release since her last visit. OBJECTIVE: Vitals: BP 133/90 | Pulse 70 | Temp (Src) 36.6 C (97.9 F) (Oral) | RR 16 | Ht 1.676 m (5' 6") | Wt 124.5 kg (274 lb 8 oz) | BMI 44.31 kg/(m^2) Physical Exam: General: NAD, alert, pleasant HEENT: MMM, NCAT Cardiovascular: Regular rate Respiratory: Unlabored on room air GI: Soft, NT/ND, incision inferior to the umbilicus well healed with reducible hernia, wide defect, no overlying erythema, induration. Mild tenderness at the hernia Extremities: WWP Labs/Cultures/Pathology: No new labs Imaging/Diagnostic Studies: ASSESSMENT: Sara AguilarRuth is a 32 y.o. female with a history of HTN, glucose intolerance, morb id obesity, asthma and recurrent ventral hernia after repair of umbilical hernia in 2013 c/b infection requiring removal of mesh with delayed repair 08/2015 now with recurrence. Elton mcbride is activly pursuing bariatric surgery for weight loss. No evidence of strangulation or obs truction. PLAN: 1. Will discuss with bariatric team on timing of repair: at the time of bariatric surgery o r post bariatric surgery. 2. Patient provided with Rx for new abdominal binder 3. Given work release for sedentary job that does not require prolonged standing or heavy l ifting This patient was seen in conjunction with Dr. Bingham, attending physician, who agrees with the above plan. Nba Amaya MD General Surgery, PGY-2 Pager [phone] documented in thi s encounter Plan of Treatment +--------+ + + [...] Rd | | | | | | [place], [place] | | | | | | [address] | | | | | | [phone] | | | | | | | | +--------+ + + + + | 09/22/ | Surgery | Surgery | Shu, | RECURRENT VENTRAL | | 2019 | | | MD Bryson [address] | HERNIA REPAIR AND | | | | | [address] | EXCISION OF MESH | | | | | [place], [place] | | | | | | [address] | | | | | | [phone] | | | | | | | [...]
--- OUTSIDE RECORDS SUMMARY | ~2019-09-13 | XMS | Encounter Summary ---
Demographics + + + | Address | [address] | | | [place] [address] | + + + | Home Phone [...] | Stewart Corbett | ECON | [address] | | | | | [place] | | | | | [address] | | + + + + + Care Team Providers + +------+ + | Care Skull Grinder Name | Role | Phone | + +------+ + | No Pcp Per Patient | PCP | Unavailable | + +------+ + Encounter Details +--------+--------+ + + + | Date | Type | Department | Care Team | Description | +--------+--------+ + + + | 08/28/ | Travel | | | | | [...] [place] | | | | | | [address] | | | | | | [phone] | | | | | | | | +--------+ + + + + | 09/22/ | Surgery | Surgery | Shu, | RECURRENT VENTRAL | | 2018 | | | MD Devaughn Massey | HERNIA REPAIR AND | | | | | [address] | EXCISION OF MESH | | | | | [place], [place] | | | | | | [address] | | | | | | [phone] | | | | | | | | +--------+ + + + + documented as of this encounter Visit Diagnoses Not on filedocumented in this encounter"
--- OUTSIDE RECORDS SUMMARY | ~2019-09-13 | XMS | Encounter Summary ---
Demographics + + + | Address | [address] | | | [place] [address] | + + + | Home Phone [...] [place] | | | | | [address] | | + + + + + Care Team Providers + +------+ + | Care Custodial Engineer Name | Role | Phone | [...] Outside Records | | 2018 | | [place] [address] | [facility] [address] | Received (01/22/2018 | | | | [place] Mailcode: [facility] | [place], [place] | ED Notes- St. | | | | [facility] | [address] | [place]) | | | | and Healing, | [phone] | | | | | [facility] | | | | | | [place], [place] | | | | | | [address] | | | | | | [phone] | | | +--------+ + + + [...] [place] | | | | | | [address] | | | | | | [phone] | | | | | | | | +--------+ + + + + | 09/22/ | Surgery | Surgery | Shu, | RECURRENT VENTRAL | | 2019 | | | MD Bryson [address] | HERNIA REPAIR AND | | | | | [address] | EXCISION OF MESH | | | | | [place] | | | | | | [address] | | | | | | [phone] | | | | | | | | +--------+ + + + + documented as of this encounter Visit Diagnoses Not on filedocumented in this encounter"
--- OUTSIDE RECORDS SUMMARY | ~2019-09-13 | XMS | Encounter Summary ---
Demographics + + + | Address | [address] | | | [place] [address] | + + + | Home Phone | | + + + | Preferred Language | Unknown | + + + | Marital Status | | + + + | Jewish Affiliation | CHR | + + + [...] [place] | | | | | [address] | | + + + + + Care Team Providers + +------+ + | Care Grain Processor Name | Role | Phone | + +------+ + | Aleshia Martinez PA-C | PCP | | + +------+ + Encounter Details +--------+ + + + + | Date | Type | Department | Care Team | Description | +--------+ + + + + | 12/02/ | MyChart | Digestive Health | Gildardo Downing, | Need to make a | | 2019 | Encounter | [facility] at [facility] [address] | MD [address] | follow up | | | | [address] | [place], [place] | appointment | | | | Mailcode: Center | [address] | | | | | for Health and | [phone] | | | | | Healing, [address] | | | | | | [place], [place] | | | | | | [address] | | | | | | [phone] | | | +--------+ + + + [...] Rd | | | | | | [place], [place] | | | | | | [address] | | | | | | [phone] | | | | | | | | +--------+ + + + + | 09/22/ | Surgery | Surgery | Shu, | RECURRENT VENTRAL | | 2018 | | | MD Devaughn Massey | HERNIA REPAIR AND | | | | | [address] | EXCISION OF MESH | | | | | [place], [place] | | | | | | [address] | | | | | | [phone] | | | | | | | | +--------+ + + + + documented as of this encounter Visit Diagnoses Not on filedocumented in this encounter"
--- OUTSIDE RECORDS SUMMARY | ~2019-09-13 | XMS | Encounter Summary ---
Demographics + + + | Address | [address] | | | [place] [address] | + + + | Home Phone [...] Team Providers + +------+ + | Care Behavioral Health Therapist Name | Role | Phone | + [...] | | | or gangrene | | [place] for | | | | | | | Health and | | | | | | | Healing, | | | | | | | [address] | | | | | | | [place], [place] | | | | | | | [address] | | | | | | | Phone: | | | | | | | [phone] | | | | | | | Fax: | | | | | | | [phone] | + +--------+ + + + + Encounter Details +--------+---------+ + + + | Date | Type | Department | Care Team | Description | +--------+---------+ + + + | 09/29/ | Office | Digestive Health | Tea Reece, | S/P laparoscopic | | 2018 | Visit | [facility] at [facility] [address] | [address] | sleeve gastrectomy | | | | [address] | [facility] [address] | (Primary Dx) | | | | Mailcode: Center | [place], [place] | | | | | for Health and | [address] | | | | | [facility], [address] [address] | | | | | | [place], [place] | | | | | | [address] | | | | | | [phone] | | | +--------+---------+ + + + [...] | Weight | 112.8 kg (248 lb 9.6 | 09/29/2018 10:43 AM | | | | oz) | PST | | + + + + + | Height | - | - | | + + + + + | Body Mass Index | 38.94 | 09/07/2018 11:20 AM | | | | | PST [...] encounter Progress Notes Tea Reece, RD - 09/29/2018 10:30 AM PSTFormatting of this note might be different fr om the original. Nutrition Counseling: Post-op Bariatric Surgery Follow-Up Patient referred by: No referring provider defined for this encounter. Documented time of visit: 10:42am to 11:08am (26 minutes [id number] with patient) Surgery: Sleeve Gastrectomy Date of Surgery: 08/31/18 Subjective: Accidentally ate noodles, had to stop after 2-3 bites. Any reported changes: Reports feeling hungry shortly after a meal, portion sizes are still very small, only tolerating a few bites at a time. Tolerating Bariatric Diet: Yes Current Physical Activity: walking on treadmill 10-15 minutes - goal is to get to 4x/week Objective: Ht Readings from Last 1 Encounters: 09/07/18 1.702 m (5' 7") Wt Readings from Last 2 Encounters: 09/29/18 112.8 kg (248 lb 9.6 oz) 09/07/18 115.2 kg (254 lb) 08/31/18 119.2 kg (262 lb 11.2 oz) 01/06/18 126.3 kg (278 lb 6.4 oz) Body mass index is 38.94 kg/m. Weight change since surgery: lost 14 lbs, 30 lbs since starting program PMHx: Past Medical History: Diagnosis Date Anxiety Asthma Depression Diverticulitis Glucose intolerance (impaired glucose tolerance) HTN (hypertension) Irregular periods Morbid obesity with BMI of 40.0-44.9, adult (HCC) Pneumonia Ventral hernia, recurrent Food logs: No Food choices: beans with salsa, HB egg, cottage cheese, zoodles, Premier protein shakes x2, cream of wheat with added 10 gm protein Fluid choices: water, Sleepy time tea, Powerade Zero Supplementation: multivitamin - Bariatric Fusion x4 per day- aversion to taste and thinking about trying Celebrate instead. Discussed adding Citracal for calcium if she makes this alicia nge. Assessment: Following Bariatric Diet Protocol: Yes Meeting protein goals: Yes Meeting fluid goals: Likely with fluid from food/shakes Fluids from meals: Yes Plan: Reviewed nutrition goals after bariatric surgery. Aim for 64 ounces of fluid and 60-80 grams of protein per day. Continue to follow post-surgery bariatric diet progression: Continue stage 3 according to b ariatric diet guidelines -Provided written & verbal education/review on stage 3 guidelines, including grocery list of stage 3 foods -Continue introducing soft/ground/moist protein foods -Once meeting protein goal consistently, gradually add up to 1/2 cup per meal of soft/cook ed fruits, vegetables, or starches -Continue to eat protein foods first; stop eating as soon as you begin to feel full -Add new foods one at a time -Avoid red meats, hard/crunchy foods, breads, rice, and pasta until 3 months post-surgery -Choose foods with < 14 g sugar & < 5 g fat per serving -Continue fluids from meals by 30 minutes before & after Continue vitamin & mineral supplementation per post-bariatric surgery guidelines -complete multivitamin & mineral (with iron) supplement, 2/day -6469-2550 mg calcium citrate with vitamin D/day (take in divided doses, not within 2 hour s of multivitamin or iron supplement) -500 mcg/day sublingual B12 supplement (or monthly injections) Continued to reinforce importance of mindful eating. Continue to increase physical activity. Follow up in [address], LD Pager # [phone] signed by Tea Reece RD at 09/29/2018 11:21 AM [facility] ed in this encounter Plan of Treatment [...] | 2019 | Encounter | | MD [address] | | | | | [address] | | | | | | [place], [place] | | | | | | [address] | | | | | | [phone] | | | | | | | | +--------+ + + + + | 09/22/ | Surgery | Surgery | Shu, | RECURRENT VENTRAL | | 2019 | | | MD Bryson [address] | HERNIA REPAIR AND | | | | | [address] | EXCISION OF MESH | | | | | [place], [place] | | | | | | [address] | | | | | | [phone] | | | | | | | | +--------+ + + + + documented as of this encounter Procedures + +--------+ + + + | Procedure Name | Priori | Date/Time | Associated Diagnosis | Comments | | | ty | | | | + +--------+ + + + | AL MNT RE-ASSESSMNT | Routin | 09/29/2018 | S/P laparoscopic | | | X15MIN | e | 11:21 AM | sleeve gastrectomy | | | | | PST | | | + +--------+ + + + documented in this encounter Visit Diagnoses + + | Diagnosis | + + | S/P laparoscopic sleeve gastrectomy - Primary | + + documented in this encounter
--- OUTSIDE RECORDS SUMMARY | ~2019-09-13 | XMS | Encounter Summary ---
Demographics + + + | Address | [address] | | | [place] [address] | + + + | Home Phone [...] + + | Author | [facility] | + + + | Organization | [facility] | + + + | Address | Unknown | + + + | Phone | Unavailable | + + + Support + + + + + | Name | Relationship | Address | Phone | + + + + + | Stewart Corbett | ECON | [address] | | | | | [place] | | | | | [address] | | + + + + + Care Team Providers + +------+ + | Care Golf Range Attendant Name | Role | Phone | + +------+ + | No Pcp Per Patient | PCP | Unavailable | + +------+ + Encounter Details +--------+ + + + + | Date | Type | Department | Care Team | Description | +--------+ + + + + | 08/18/ | Abstract | Digestive Health | Es Rausch W, | | | 2016 | | [facility] at [facility] [address] | MD [address] | | | | | [address] | [facility] [place] | | | | | Mailcode: [place] | [address] | | | | | for Health and | [phone] | | | | | [facility], [facility] [address] | | | | | | [place], [place] | | | | | | [address] | | | | | | [phone] | | | +--------+ + + + [...] Rd | | | | | | [place], [place] | | | | | | [address] | | | | | | [phone] | | | | | | | | +--------+ + + + + | 09/22/ | Surgery | Surgery | Shu, | RECURRENT VENTRAL | | 2018 | | | MD Bryson [address] | HERNIA REPAIR AND | | | | | [address] | EXCISION OF MESH | | | | | [place], [place] | | | | | | [address] | | | | | | [phone] | | | | | | | | +--------+ + + + + documented as of this encounter Visit Diagnoses Not on filedocumented in this encounter"
--- OUTSIDE RECORDS SUMMARY | ~2019-09-13 | XMS | Encounter Summary ---
Demographics + + + | Address | [address] | | | [place] [address] | + + + | Home Phone [...] [place] | | | | | [address] | | + + + + + Care Team Providers + +------+ + | Care Special Investigator Name | Role | Phone | + +------+ + | No Pcp Per Patient | PCP | Unavailable | + +------+ + Encounter Details +--------+ + + + + | Date | Type | Department | Care Team | Description | +--------+ + + + + | 09/21/ | Abstract | Digestive Health | Clinic, Surgery | | | 2016 | | [place] at [facility] [address] | | | | | | [address] | | | | | | Mailcode: [place] | | | | | | [facility] and | | | | | | Healing, [address] | | | | | | [place], [place] | | | | | | [address] | | | | | | [phone] | | | +--------+ + + + [...] [address] | | | | | | [address] | | | | | | [place], [place] | | | | | | [address] | | | | | | [phone] | | | | | | | | +--------+ + + + + | 09/22/ | Surgery | Surgery | Shu, | RECURRENT VENTRAL | | 2019 | | | MD [address] | HERNIA REPAIR AND | | | | | [address] | EXCISION OF MESH | | | | | [place], [place] | | | | | | [address] | | | | | | [phone] | | | | | | | | +--------+ + + + + documented as of this encounter Visit Diagnoses Not on filedocumented in this encounter"
--- OUTSIDE RECORDS SUMMARY | ~2019-09-13 | XMS | Clinical Summary ---
Demographics + + + | Address | [address] | | | [place] [address] | + + + | Home Phone [...] + + + | Author | [facility] | + + + | Organization | [facility] | + + + | Address | Unknown | + + + | Phone | Unavailable | + + + Support + + + + + | Name | Relationship | Address | Phone | + + + + + | Stewart Corbett | ECON | [address] | | | | | [place] | | | | | [address] | | + + + + + Care Team Providers + +------+ + | Care Aircraft Engine Mechanic Overhaul Name | Role | Phone | + +------+ + | Aleshia Martinez PA-C | PCP | | + +------+ + Source Comments CANDY is fully live on both EpicCare Ambulatory and EpicCare InPatient.[facility] Allergies + + + + + + | Active Allergy | Reactions | Severity | Noted | Comments | | | | | Date | | + + + + + + | Adhesive | Rash | Medium | 10/25/20 | | | | | | 17 | | + + + + + + | Contrast Medium | Rash | Medium | 10/25/20 | | | | | | 17 | | + + + + + + | Latex | Rash | Medium | 10/25/20 | | | | | | 17 | | + + + + + + | Naproxen | Rash | Medium | 10/25/20 | | | | | | 17 | | + + + + + + Medications + + + +---------+------+------+-------+ | Medication | Sig | Dispensed | Refills | Star | End | Statu | | | | | | t | Date | s | | | | | | Date | | | + + + +---------+------+------+-------+ | sertraline 50 mg | Take 75 mg by mouth | | 0 | | | Activ | | oral tablet | once daily. | | | | | e | + + + +---------+------+------+-------+ | fluticasone 50 | Instill 1 spray into | | 0 | | | Activ | | mcg/actuation nasal | each nostril as | | | | | e | | spray,suspension | needed. | | | | | | + + + +---------+------+------+-------+ | ALBUTEROL INHL | Inhale 2 puffs as | | 0 | | | Activ | | | needed. | | | | | e | + + + +---------+------+------+-------+ | cetirizine 10 mg | Take 10 mg by mouth | | 0 | | | Activ | | oral tablet | as needed. | | | | | e | + + + +---------+------+------+-------+ | Cholecalciferol | Take 1 tablet by [...] | | | | + + + +---------+------+------+-------+ +---+ + | | Additional | | | informationPatient | | | taking differently: | | | 1,000 Units oral | | | DAILY, Indications: | | | vitamin D | | | deficiency, Reported | | | on 08/01/2018 12:04 | | | PM | +---+ + + + +---------+---+------+---+-------+ | Bacillus | Take by mouth. | | 0 | | | Activ | | coagulans/inulin | | | | | | e | | (PROBIOTIC WITH | | | | | | | | PREBIOTIC ORAL) | | | | | | | + + +---------+---+------+---+-------+ | | Take 1 tablet by | 1 | 0 | 11/0 | | Activ | | desogestrel-ethinyl | mouth once daily. | Package | | 07/14 | | e | | estradiol (ENSKYCE) | Hold for two weeks | | | 18 | | | | 0.15-0.03 mg oral | after surgery. | | | | | | | tablet | | | | | | | + + +---------+---+------+---+-------+ | diazePAM 2 mg oral | Take [...] | | | | | + + +---------+---+------+---+-------+ | ibuprofen 200 mg | Take 800 mg by mouth | | 0 | 11/0 | | Activ | | oral capsule | as needed. Hold for | | | 20 | | e | | | 1 week after | | | 18 | | | | | surgery | | | | | | + + +---------+---+------+---+-------+ | hyoscyamine | Take 1 tablet by [...] | | | | | + + +---------+---+------+---+-------+ | ergocalciferol | Take 1 capsule by | 52 | 0 | 11/1 | | Activ | | 50,000 unit oral | mouth every seven | capsule | | / | | e | | capsuleIndications: | days. Indications: | | | 18 | | | | Vitamin D Deficiency | Vitamin D Deficiency | | | | | | | (High Dose Therapy) | (High Dose Therapy) | | | | | | + + +---------+---+------+---+-------+ | methocarbamol 500 | Take 2 tablets [...] | | | | | + + +---------+---+------+---+-------+ | ursodiol 250 mg | Take 1 tablet by | 60 | 4 | 01/0 | | Activ | | oral tablet | mouth two times | tablet | | 07/14 | | e | | | daily. Take with | | | 19 | | | | | food. | | | | | | + + +---------+---+------+---+-------+ | nystatin 100,000 | Apply to affected [...] | | | | | + + +---------+---+------+---+-------+ | omeprazole 20 mg | Take 1 capsule by | 30 | 2 | 03/2 | | Activ | | oral capsule,delayed | mouth once daily. | capsule | | 6/20 | | e | | release(DR/EC) | Administer 30 to 60 | | | 19 | | | | | minutes before meals | | | | | | + + +---------+---+------+---+-------+ | omeprazole 20 mg | Take 1 capsule by | 30 | 2 | 05/2 | | Activ | | oral capsule,delayed | mouth once daily. | capsule | | 2/20 | | e | | release(DR/EC) | Administer 30 to 60 | | | 19 | | | | | minutes before | | | | | | | | meals. Or two hours | | | | | | | | after dinner | | | | | | + + +---------+---+------+---+-------+ | multivitamin oral | Take 1 tablet by | | 0 | | | Activ | | tablet | mouth once daily. | | | | | e | + + +---------+---+------+---+-------+ Active Problems + + + | Problem | Noted Date | + + + | S/P laparoscopic sleeve gastrectomy | 09/29/2018 | + + + + + | Overview: HIghest wt 291lb | | | | Program start 286lb | | | | Preop wt 270lb | + + + + + | Morbid obesity with BMI of 40.0-44.9, adult | 01/06/2018 | + + + | [...] + + | 09/13/ | Telephone | Surgery | Shu, | Patient's Condition | | 2018 | | | MD Bryson | Worsened | +--------+ + + + + | 08/29/ | Telephone-S | Pre-operative | | Pre-op evaluation | | 2018 | cheduled | Medicine | | | +--------+ + + + + | 08/28/ | Anesthesia | Pre-operative | Lety Dillon, | | | 2018 | Event | Medicine | RN | | +--------+ + + + + | 08/28/ | Travel | | | | | 2019 | | | | | +--------+ + + + + | 07/28/ | MyChart | Surgery | Shu, | RE: Surgery for the | | 2018 | Encounter | | MD Bryson | hernia | +--------+ + + + + | 07/06/ | Office | Surgery | Shu, | Ventral hernia with | | 2018 | Visit | | MD Bryson | obstruction and | | | | | | without gangrene | | | | | | (Primary Dx) | +--------+ + + + + | 07/06/ | Travel | | | | | 2018 | | | | | +--------+ + + + + from [...] recent travel history available. | + + Last Filed Vital Signs + [...] | | + + + + + Plan of Treatment +--------+ + + + [...] Rd | | | | | | [place], [place] | | | | | | [address] | | | | | | [phone] | | | | | | | | +--------+ + + + + | 09/22/ | Surgery | Surgery | Shu, | RECURRENT VENTRAL | | 2018 | | | MD Bryson [address] | HERNIA REPAIR AND | | | | | [address] | EXCISION OF MESH | | | | | [place], [place] | | | | | | [address] | | | | | | [phone] | | | | | | | | +--------+ + + + + + + + + + | Health Maintenance | Due Date | Last Done | Comments | + + + + + | Pneumococcal | | | | | vaccination (1 of | 3 | | | | - PPSV23) | | | | + + + + + | Influenza (Flu) | | | | | vaccination (#1) | 9 | | | + + + + + Implants + +------+--------+ +--------+--------+--------+ | Implanted | Type | Area | Manufacture | Device | Shelf | Model | | | | | r | | Expira | / | | | | | | Identi | tion | Serial | | | | | | fier | Date | / Lot | + +------+--------+ +--------+--------+--------+ | Reinforcement Staple Line | | N/A: | [employer] | | 04/23/ | 12BSGE | | Bioabsorbable Sterile | | Abdome | [employer] | | 2020 | [id number] / | | Seamguard Latex Free | | n | | | | | | Disposable Blue Gold Green - | | | | | | [id number] | | [id number]: Qty: 2 on | | | | | | 245 | | 08/31/2018 by Gildardo Downing | | | | | | | | MD Navin at [facility] | | | | | | | | LOC | | | | | | | [...] - | | | | | | /[id number] | | [id number]: Qty: 2 on | | | | | | 248 | | 08/31/2018 by Gildardo Downing | | | | | | | | MD Navin at [facility] | | | | | | | | LOC | | | | | | | + +------+--------+ +--------+--------+--------+ Results Not on filefrom Last 3 Months Insurance + +--------+ +--------+-------+---------+--------+ | Payer | Benefi | Subscriber | Effect | Phone | Address | Type | | | t Plan | ID | sarmad | | | | | | / | | Dates | | | | | | Group | | | | | | + +--------+ +--------+-------+---------+--------+ | CORVEL WC | CORVEL | [id number] | 10/31/19 | | | Worker | | | WC | x | 14-Pre | | | s Comp | | | | | sent | | | | + +--------+ +--------+-------+---------+--------+ + +--------+ +--------+ + + | Guarantor Name | Accoun | Relation to | Date | Phone | Billing Address | | | t Type | Patient | of | | | | | | | | | | + +--------+ +--------+ + + | Miguelangel Caballero | Person | Self | [birth year] | [address] | | mi | al/Fam | | 1985 | [phone] | [place] [address] | | | pawel | | | 9 (Home) | | + +--------+ +--------+ + + | Miguelangel Caballero | Worker | Self | [birth year] | | [address] | | mi | s Comp | | 1984 | [phone] | [place] [address] | | | | | | 9 (Home) | | + +--------+ +--------+ + + | Miguelangel Caballero | Worker | Self | [birth year] | | [address] | | mi | s Comp | | 1984 | [phone] | [place] [address] | | | | | | 9 (Home) | | + +--------+ +--------+ + + | Miguelangel Caballero | Worker | Self | [birth year] | | [address] | | mi | s Comp | | 1984 | [phone] | [place] [address] | | | | | | 9 (Home) | | + +--------+ +--------+ + + Advance Directives + + + + + | Code Status | Date | Date | Comments | | | Activated | Inactivated | | + + + + + | Full Code | 08/31/2018 | 09/02/2018 | | | | 10:38 AM | 11:19 PM | | + + + + +
--- OUTSIDE RECORDS SUMMARY | ~2019-09-13 | XMS | Encounter Summary ---
Demographics + + + | Address | [address] | | | [place] [address] | + + + | Home Phone | | + + + | Preferred Language | Unknown | + + + | Marital Status | | + + + | Hoahaoism Affiliation | CHR | + + + [...] [place] | | | | | [address] | | + + + + + Care Team Providers + +------+ + | Care Commutator Presser Name | Role | Phone | + [...] | | 2018 | | Center at [facility] [address] | [address] | ) | | | | [address] | [place], [place] | | | | | Mailcode: [place] | [address] | | | | | for Health and | [phone] | | | | | [place] [address] | | | | | | [place], [place] | | | | | | [address] | | | | | | [phone] | | | +--------+ + + + [...] + + + + | 11/29/ | Hospital | Adult Acute Care | Shu, | | | 2018 | Encounter | | MD Bryson [address] | | | | | | [address] | | | | | | [place], [place] | | | | | | [address] | | | | | | [phone] | | | | | | | | +--------+ + + + + | 09/22/ | Surgery | Surgery | Shu, | RECURRENT VENTRAL | | 2018 | | | MD Bryson [address] | HERNIA REPAIR AND | | | | | [address] | EXCISION OF MESH | | | | | [place], [place] | | | | | | [address] | | | | | | [phone] | | | | | | | | +--------+ + + + + documented as of this encounter Visit Diagnoses Not on filedocumented in this encounter"
--- OUTSIDE RECORDS SUMMARY | ~2019-09-13 | XMS | Encounter Summary ---
Demographics + + + | Address | [address] | | | [place] [address] | + + + | Home Phone | | + + + | Preferred Language | Unknown | + + + | Marital Status | | + + + | Hindu Affiliation | CHR | + + + | Race | White | + + + | Ethnic Group | Not or | + + + Author + + + | Author | [facility] | + + + | Organization | [facility] | + + + | Address | Unknown | + + + | Phone | Unavailable | + + + Support + + + + + | Name | Relationship | Address | Phone | + + + + + | Stewart Corbett | ECON | [address] | | | | | [place] | | | | | [address] | | + + + + + Care Team Providers + +------+ + | Care Special Procedures Nurse Name | Role | Phone | + +------+ + | Aleshia Martinez PA-C | PCP | | + +------+ + Reason for Visit +--------+ + | Reason | Comments | +--------+ + | Other | Patient seen in [facility] | +--------+ + Encounter Details +--------+ + + + + | Date | Type | Department | Care Team | Description | +--------+ + + + + | 01/28/ | Telephone | Digestive Health | ClarkeYumiko, | Other (Patient seen | | 2018 | | Center at [facility] [address] | ACN [address] | in [facility]) | | | | [address] | Ave [place], [place] | | | | | Mailcode: Center | [address] | | | | | for Health and | [phone] | | | | | [place] [address] | | | | | | [place], [place] | | | | | | [address] | | | | | | [phone] | | | +--------+ + + + [...] Rd | | | | | | [place], [place] | | | | | | [address] | | | | | | [phone] | | | | | | | | +--------+ + + + + | 09/22/ | Surgery | Surgery | Shu, | RECURRENT VENTRAL | | 2019 | | | MD Devaughn Massey | HERNIA REPAIR AND | | | | | [address] | EXCISION OF MESH | | | | | [place], [place] | | | | | | [address] | | | | | | [phone] | | | | | | | | +--------+ + + + + documented as of this encounter Visit Diagnoses Not on filedocumented in this encounter"
--- OUTSIDE RECORDS SUMMARY | ~2019-09-13 | XMS | Encounter Summary ---
Demographics + + + | Address | [address] | | | [place] [address] | + + + | Home Phone [...] [place] | | | | | [address] | | + + + + + Care Team Providers + +------+ + | Care Applications Manager Name | Role | Phone | [...] 2019 | Encounter | Center at [facility] [address] | AGACNP [address] | | | | | [address] | [place], [place] | | | | | Mailcode: Center | [address] | | | | | for Health and | [phone] | | | | | Healing, [address] | | | | | | [place], [place] | | | | | | [address] | | | | | | | [...] Rd | | | | | | [place], [place] | | | | | | [address] | | | | | | [phone] | | | | | | | | +--------+ + + + + | 09/22/ | Surgery | Surgery | Shu, | RECURRENT VENTRAL | | 2018 | | | MD Devaughn Massey | HERNIA REPAIR AND | | | | | [address] | EXCISION OF MESH | | | | | [place], [place] | | | | | | [address] | | | | | | [phone] | | | | | | | | +--------+ + + + + documented as of this encounter Visit Diagnoses Not on filedocumented in this encounter"
--- OUTSIDE RECORDS SUMMARY | ~2019-09-13 | XMS | Encounter Summary ---
Demographics + + + | Address | [address] | | | [place] [address] | + + + | Home Phone | | + + + | Preferred Language | Unknown | + + + | Marital Status | | + + + | Sikh Affiliation | CHR | + + + [...] [place] | | | | | [address] | | + + + + + Care Team Providers + +------+ + | Care Binder And Wrapper Packer Name | Role | Phone | + +------+ + | Aleshia Martinez PA-C | PCP | | + +------+ + Encounter Details +--------+ + + + + | Date | Type | Department | Care Team | Description | +--------+ + + + + | 04/28/ | Documentati | Digestive Health | Yumiko Clarke, | | | 2018 | on | Center at [facility] [address] | ACNP [address] | | | | | [address] | [place], [place] | | | | | Mailcode: Center | [address] | | | | | for Health and | [phone] | | | | | Healing, [address] | | | | | | [place], [place] | | | | | | [address] | | | | | | [phone] | | | +--------+ + + + [...] Rd | | | | | | [place], [place] | | | | | | [address] | | | | | | [phone] | | | | | | | | +--------+ + + + + | 09/22/ | Surgery | Surgery | Shu, | RECURRENT VENTRAL | | 2018 | | | MD Bryson [address] | HERNIA REPAIR AND | | | | | [address] | EXCISION OF MESH | | | | | [place] | | | | | | [address] | | | | | | [phone] | | | | | | | | +--------+ + + + + documented as of this encounter Visit Diagnoses Not on filedocumented in this encounter"
--- OUTSIDE RECORDS SUMMARY | ~2019-09-13 | XMS | Encounter Summary ---
Demographics + + + | Address | [address] | | | [place] [address] | + + + | Home Phone [...] [place] | | | | | [address] | | + + + + + Care Team Providers + +------+ + | Care Cloth Opener Hand Name | Role | Phone | + [...] | | 2019 | | Center at [facility] [address] | AGACNP [address] | Received | | | | [address] | Ave [place], [place] | | | | | Mailcode: Center | [address] | | | | | for Health and | [phone] | | | | | [facility] [address] | | | | | | [place], [place] | | | | | | [address] | | | | | | [phone] | | | +--------+ + + + [...] [place] | | | | | | [address] | | | | | | [phone] | | | | | | | | +--------+ + + + + | 09/22/ | Surgery | Surgery | Shu, | RECURRENT VENTRAL | | 2019 | | | MD Devaughn Massey | HERNIA REPAIR AND | | | | | [address] | EXCISION OF MESH | | | | | [place], [place] | | | | | | [address] | | | | | | [phone] | | | | | | | | +--------+ + + + + documented as of this encounter Visit Diagnoses Not on filedocumented in this encounter"
--- OUTSIDE RECORDS SUMMARY | ~2019-09-13 | XMS | Encounter Summary ---
Demographics + + + | Address | [address] | | | [place] [address] | + + + | Home Phone [...] [place] | | | | | [address] | | + + + + + Care Team Providers + +------+ + | Care Diesel Locomotive Engineer Name | Role | Phone | + +------+ + | No Pcp Per Patient | PCP | Unavailable | + +------+ + Reason for Referral PROC - Inpatient Surgery (Routine) +--------+--------+ + + + + | Status | Reason | Specialty | Diagnoses / | Referred By | Referred To | | | | | Procedures | Contact | Contact | +--------+--------+ + + + + | Open | | Surgery | Diagnoses | | Shu, | | | | | Ventral | Shu | MD Yann | | | | | hernia with | MD Yann | [address] | | | | | obstruction | [address] | [address] | | | | | and without | [address] | Rd [place], | | | | | gangrene | Rd | [place] | | | | | Procedures | [facility] [place] | [address] | | | | | REQUEST TO | [address] | Phone: | | | | | SURGERY | Phone: | [phone] | | | | | SDC TEACHER | [phone] | Fax: | | | | | | Fax: | [phone] | | | | | | [phone] | | +--------+--------+ + + + + Reason for Visit [...] with | | 2019 | Visit | [place] at [facility] [address] | MD Yann [address] | obstruction and | | | | [address] | [address] | without gangrene | | | | Mailcode: Center | [place], [place] | (Primary Dx) | | | | for Health and | [address] | | | | | [facility] 2 | [phone] | | | | | [place], [place] | | | | | | [address] | | | | | | [phone] | | | +--------+---------+ + + + [...] - 07/06/2019 9:50 AM PDTPATIENT SURGERY INFORMATION [facility] General Surgery Office Toll-free: ext [phone] Surgery Date: Sunday, September 22, [address]: [facility] Procedure: recurrent ventral hernia repair, excision [...] ease call the General Surgery Office at [phone] for [id number]. Check-in on the day of surgery is at the Admitting Department located on the 9th floor of [facility]. DIET Nothing to eat or drink [...] the surgery. Please see the list below, [facility] has a list of products that [...] contact our office . Products Containing Aspirin [place], Anacin, Anexsia with Codeine, Andynos, Aspirin, Aspirin suppositories, Ascrip tin, Aspergum, Axotal, B-A-C, Baby Aspirin, Nader, BC Powder, Bexophene, Buffaprin, Bufferin , Buffinol, Cama-Arthritis Strength, Congespirin, [place], Coricidin, Damason, Darvon, Dristan, Rosetta-Gesic, Digel, Dolprin #3 Tablets, Donatab, Doxaphene, Duragesic, Easprin, Ecotrin, Emag rin Forte, Emiprin, Emprazil, Equagesic, Equazine M, Excedrin, Fiogesic, Fiorgen PH, Fiorice t, Fiorinal, 4-Way Cold Tablet, Gemnisyn, Indocin, Liquprin, Lortab ASA, Magnaprin, Marnal, Meprobamate, Midol, Momentum, Norgesic, [place], Orphengesic, Pabalate, P-A-C, Percodan, Pre salin, Robaxasil, Roxiprin, Saleto, Salocol, SK-65 Compound, Sine-Aid, Sine-Off, [place], Supac, Talwin Compound, Trigesic, Tolectin, Traiminicin, Vanquish, ZORprin, Zomax Products Containing Ibuprofen Advil, Aleve, Haltran, Medipren, Midol, Motrin, Naproxyn, Nuprin, Rufen Herbal Medications Ephedra: discontinue 24 hours before surgery Garlic: discontinue 7 days prior to surgery Ginkgo: discontinue 36 hours prior to surgery Ginseng: discontinue 7 days prior to surgery Kava: discontinue 24 hours prior to surgery Chamita s Wort: discontinue 5 days prior to surgery Valerian: discontinue several weeks prior to surgery Other Products Which May Promote Bleeding Vitamin E, Gingko Biloba, Marine Fatty Acids, Cade-3 Fish Oil Supplement PRE-OP BATHING/SHOWER INSTRUCTIONS with [facility] Bathe or shower the evening before and [...] actual loss of tissue. Check out the [facility] Quit Line - The Quit Line is open 24 hours a day, seven days a we ek. The Quit Line is a telephone and web-based counseling service to help [place]ians quit us ing tobacco and nicotine products. .QUIT.NOW ( ) or www.quitnow.net/[place] PARKING Parking at the Hospital for patients and visitors is available in the [facility] [employer] s tructure located across from the emergency department. Patient parking is available on level 1 and 3. Metered parking is available on the top level. Parking at [facility] is available in the building's parking structure. For additional parking options visit [email or web address]. TRANSPORTATION You will require transportation home on the day of discharge. Pain medications and physical activity restrictions may limit your ability to drive safely. CANCELLING YOUR PROCEDURE Please notify the general surgery office at [phone] as soon as possible should you nee [...] repair. Her prior surgeries were performed in [place], [place] with Dr. Arthur Kuo. She repor ts a 2014 umbilical hernia repair with mesh placement, and subsequent mesh infection. She pl ans to bring her prior medical records to her next visit, likely on the day of surgery to juana mejiahoneymalika surgical history. 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 Can walk greater than 10 blocks, very active with her work . Past Surgical History Procedure Laterality Date Diagnostic laparoscopy 2009 Fallopian tube transection 2012 Ventral hernia repair with mesh 2013 Laparoscopic sleeve gastrectomy 08/31/2018 LADANIA Downing Past Medical History: Diagnosis Date Anxiety [...] file Gets together: Not on file Attends orthodox service: Not on file Active member of [...] to inguinal hernia repair. YANN IRELAND MD [facility] AT [facility] [address] Mailcode: [place] [address] documented in this encounter Plan of Treatment +--------+ [...] [place] | | | | | | [address] | | | | | | [phone] | | | | | | | | +--------+ + + + + | 09/22/ | Surgery | Surgery | Shu, | RECURRENT VENTRAL | | 2018 | | | MD Devaughn Massey | HERNIA REPAIR AND | | | | | [address] | EXCISION OF MESH | | | | | [place] | | | | | | [address] | | | | | | [phone] | | | | | | | | +--------+ + + + + documented as of this encounter Visit Diagnoses + + | Diagnosis | + + | Ventral hernia with obstruction and without gangrene - Primary Ventral hernia, | | unspecified, with obstruction | + + documented in this encounter
--- OUTSIDE RECORDS SUMMARY | ~2019-09-13 | XMS | Encounter Summary ---
Demographics + + + | Address | [address] | | | [place] [address] | + + + | Home Phone [...] [place] | | | | | [address] | | + + + + + Care Team Providers + +------+ + | Care Subgrade Tester Name | Role | Phone | + +------+ + | Aleshia Martinez PA-C | PCP | | + +------+ + Reason for Visit +--------+ + | Reason | Comments | +--------+ + | Other | Patient seen in [facility] | +--------+ + Encounter Details +--------+ + + + + | Date | Type | Department | Care Team | Description | +--------+ + + + + | 01/28/ | Telephone | Digestive Health | ClarkeYumiko, | Other (Patient seen | | 2018 | | Center at [facility] [address] | ACN [address] | in [facility]) | | | | [address] | Ave [place], [place] | | | | | Mailcode: Center | [address] | | | | | for Health and | [phone] | | | | | [place] [address] | | | | | | [place], [place] | | | | | | [address] | | | | | | [phone] | | | +--------+ + + + [...] Rd | | | | | | [place], [place] | | | | | | [address] | | | | | | [phone] | | | | | | | | +--------+ + + + + | 09/22/ | Surgery | Surgery | Shu, | RECURRENT VENTRAL | | 2019 | | | MD Devaughn Massey | HERNIA REPAIR AND | | | | | [address] | EXCISION OF MESH | | | | | [place], [place] | | | | | | [address] | | | | | | [phone] | | | | | | | | +--------+ + + + + documented as of this encounter Visit Diagnoses Not on filedocumented in this encounter"
--- OUTSIDE RECORDS SUMMARY | ~2019-09-13 | XMS | Encounter Summary ---
Demographics + + + | Address | [address] | | | [place] [address] | + + + | Home Phone [...] [place] | | | | | [address] | | + + + + + Care Team Providers + +------+ + | Care Camera Storage Clerk Name | Role | Phone | [...] | | | | | 40.0-44.9, | [place], [place] | [facility] | | | | | adult (HCC) | [address] | for Health | | | | | Borderline | Phone: | and Healing, | | | | | diabetes | [phone] | Building 1, | | | | | Essential | Fax: | 15th Floor | | | | | hypertension | [phone] | [place], [place] | | | | | Mild | | [address] | | | | | intermittent | | Phone: | | | | | asthma | | [phone] | | | | | without | | Fax: | | | | | complication | | [phone] | | | | | Anxiety | [...] | Bariatri Surg | | | with AIRLINE RESERVATION AGENT | | obesity | Ganesh Holden MD | [address] [address] | | | | | ([facility]) | [address] | | | | | Procedures | Guillermo Regan | Mailcode: | | | | | CONSULT TO | Shahla Sepulveda | [facility] | | | | | BARIATRIC | [place], [place] | [facility] and | | | | | SURGERY | [address] | Healing, | | | | | | Phone: | Building 2 | | | | | | [phone] | [place], [place] | | | | | | Fax: | [address] | | | | | | [phone] | Phone: | | | | | | | [phone] | | | | | | | Fax: | | | | | | | [phone] | + + + + + + + Encounter Details +--------+---------+ + + + | Date | Type | Department | Care Team | Description | +--------+---------+ + + + | 01/06/ | Office | Digestive Health | Yumiko Clarke, | Morbid obesity with | | 2017 | Visit | Center at [facility] [address] | [facility] [address] | BMI of 40.0-44.9, | | | | [address] | Ave [place], [place] | adult (HCC) (Primary | | | | Mailcode: Center | [address] | Dx); Borderline | | | | for Health and | [phone] | diabetes; Essential | | | | Healing, Building 2 | | hypertension; Mild | | | | [place], [place] | | intermittent asthma | | | | [address] | | without | | | | [phone] | | complication; | | | | [...] diabetes 2. HTN takes atenolol, BP elevated sfdyb=027/95 3. Ventral hernia with MESH 4. Hx [...] to your private appointme nt with the stone belt sander. These classes will be scheduled apporoximately 1 [...] Psychological Evaluation: If your referral is at [facility], The Pain Management Office will call you [...] then schedule with the surgeon. Yumiko APPIAH CLINICAL SUPPORT SPECIALIST Bariatric Surgery Nurse Practitioner [facility] | [address] | [place], [place] | [address] | Potential Contraindications to Bariatric Surgery Age [...] other providers does not guarantee that the [facility] Bariatric Surger y program will deem you a surgical candidate. documented in this encounter Progress Notes Yumiko Clarke ACNP - 01/06/2018 2:05 PM PDTFormatting of this note might be different fr om the original. BARIATRIC INITIAL VISIT Provider: Yumiko APPIAH CLINICAL SUPPORT SPECIALIST Referring Provider: Aleshia Martinez PA-C Reason for Requested Consultation: Initial evaluation for bariatric surgery. Saranaveed Caballero is interested in sleeve g astrectomy. [...] doesn't like side effects Transthoracic ECHO: no Holiness or cultural reason you would refuse blood [...] of lower extremity edema, hyperlipidemia. No CHF, MT, ischemic heart disease, DVT/PE, or pulmonary hypertension. [...] diabetes 2. HTN takes atenolol, BP elevated cvnbr=516/95 3. Ventral hernia with MESH 4. Hx [...] The following has been provided to Sara BloodJohnAric This is a preliminary visit for a [...] to your private appointme nt with the stone belt sander. These classes will be scheduled apporoximately 1 [...] Psychological Evaluation: If your referral is at [facility], The Pain Management Office will call you [...] with the surgeon. Yumiko Clarke DNP ACNP CLINICAL SUPPORT SPECIALIST Bariatric Surgery Nurse Practitioner [facility] | [address] | [place], [place] | [address] | Potential Contraindications to Bariatric Surgery Age [...] other providers does not guarantee that the [facility] Bariatric Surger y program will deem you a surgical candidate. documented in this e ncounter Plan of Treatment +--------+ + + + [...] Massey | | | | | | [address] | | | | | | [place], [place] | | | | | | [address] | | | | | | [phone] | | | | | | | | +--------+ + + + + | 09/22/ | Surgery | Surgery | Shu, | RECURRENT VENTRAL | | 2018 | | | MD Devaughn Massey | HERNIA REPAIR AND | | | | | [address] | EXCISION OF MESH | | | | | [place], [place] | | | | | | [address] | | | | | | [phone] | | | | | | | [...] | + + + + + | [facility] | [address] | [place] [address] | | | SERVICES, CORE | SHAHLA [...] | [facility] | | considered for monitoring intermediate glycemic control in patients with: | LABORATORY [...] | + + + + + | [facility] | [address] | [place] [address] | | | SERVICES, SPECIAL | [address] | | | | IMM + [...] | | | | | determined by [facility] | | | | | | Laboratories. See | | | | | | Compliance Statement B: | | | | | | vocaltap.PayParade Pictures/CSPerformed | | | | | | by [email or web address] | | | | | | [facility]ad [facility],[place] | | | | | | [address] | | | | | | [phone]. | | | | | | PayParade PicturesGerardo MD, | | | | | | [...] [facility] | [address] | [place], [place] | | | [facility] | | [address] | | + + + + + [...] | | | LABORATORY | | | KENYAN | | | SERVICES, | | | [...] reference range change effective 7-12-17. GFR is | [facility] | | estimated [...] | + + + + + | [facility] | [address] | [place] [address] | | | SERVICES, CORE | [address]AH[address] [...] [facility] | [address] | [place] [address] | | | SERVICES, CORE | [address] [...] [facility] | [address] | [place] [address] | | | SERVICES, CORE | SHAHLA [...] [facility] | [address] | [place] [address] | | | SERVICES, CORE | PARK [...] | | | LABORATORY | | | KUSH CORCORAN | + + + + + + + + | Performing | Address | City/State/Zipcode | Phone Number | | Organization | | | | + + + + + | [facility] | [address] | [place] [address] | | | NILO, KUSH | SHAHLA [...] | + + + + + | [facility] | [address] | [place] [address] | | | SERVICES, CORE | SHAHLA [...] | + + + + + | [facility] | [address] | [place] [address] | | | KUSH CORCORAN | [address] | | | + [...] DEPT OF | [address] | [place], [place] | | | CARDIOLOGY | [address] | [address] | | + + + + + [...]
--- OUTSIDE RECORDS SUMMARY | ~2019-09-13 | XMS | Encounter Summary ---
Demographics + + + | Address | [address] | | | [place] [address] | + + + | Home Phone [...] [place] | | | | | [address] | | + + + + + Care Team Providers + +------+ + | Care Lead Performance Support Analyst Name | Role | Phone | [...] + + + + | 08/31/ | Hospital | [facility] [address] | Gildardo Downing, | | | 2018 - | Encounter | [address] | [address] | | | | | [place], [place] | [place], [place] | | | 09/02/ | | [address] | [address] | | | 2017 | | [phone] | [phone] | | | | | | | [...] might be differen t from the original. [facility] [place] RED SURGERY INPATIENT DISCHARGE SUMMARY Author: GAUTAM [...] We will have her follow up with [facility] Bariatric Nurse Practitioner in 1 week and [...] or Kefir, [place]oney[place] Yogurt, and Chioban i Romansh Yogurt are common brands with beneficial probiotics. [...] over the counter at most [facility] [employer] stores. Nausea/Vomiting/Difficulty Swallowing Nausea/Vomiting/Difficulty swallowing: Could be [...] hours per your instructions. Some medications, like [place], have Tylenol in it. Make sure you [...] (PCP) as this clinic does not provide [facility] chronic pain management services. When to Call [...] hours by calling the surgery office at [phone]. - After hours, weekends and holidays, you may call the hospital coke crane operator at [phone] an d have the food preparation worker Red Surgery Team paged. Destination Home Condition [...] Acute Care Why: follow up with bariatric GAS TURBINE ASSEMBLER Contact information [address] [facility] [address] Future Appointments Provider Department Dept Phone Center 09/07/2018 10:00 AM Chetna Alves [facility] at [facility] 6th Floor [phone] KATIA D AND NUT 09/07/2018 10:50 AM Emily Martinez Digestive [facility] at [facility] 6th Floor [phone] D ig Health 09/29/2018 10:30 AM Tea [facility] at [facility] 6th Floor [phone] F OOD AND NUT 09/29/2018 11:20 AM Gildardo Downing Digestive [facility] at [facility] 6th Floor [phone] Di g Health 11/25/2018 10:00 AM [facility] at [facility] 6th Floor [phone] FO OD AND NUT 11/25/2018 10:50 AM Shanon Etienne Digestive [facility] at [facility] 6th Floor [phone] Dig He[address] [facility] Discharging Physician: GAUTAM Leblanc Attending Physician: Gildardo Downing MD [facility] Red Surgery Pager# [phone] 10:42 AM 09/02/2018 documented in th is [...] + + + +---------+ + + | diazePAM 2 mg oral | Take 1 tablet by | 15 | 0 | 09/02/20 | | | tablet | mouth three times | tablet | | 18 | | | | daily. Stop taking | | | | | | | if not helpful with | | | | | | | spasms | | | | | + + + +---------+ + + | fluticasone 50 | Instill 1 spray into | | 0 | | | | mcg/actuation nasal | each nostril as | | | | | | spray,suspension | needed. | | | | | + + + +---------+ + + | hyoscyamine | Take 1 tablet by | 30 | 0 | 09/02/20 | | | (LEVSIN) 0.125 mg | mouth every four | tablet | | 18 | | | oral | hours as needed. | | | | | | tabletIndications: | Indications: muscle | | | | | | muscle spasms | spasms | | | | | + + + +---------+ + + | ibuprofen 200 mg | Take 800 mg by mouth | | 0 | 09/02/20 | | | oral capsule | as needed. Hold for | | | 18 | | | | 1 week after | | | | | | | surgery | | | | | + + + +---------+ + + | sertraline 50 mg | Take 75 mg by mouth | | 0 | | | | oral tablet | once daily. | | | | | + + + +---------+ + + documented as of this encounter Progress Notes Severino Crowder - 09/01/2018 2:43 PM PSTDEPARTMENT OF SURGERY [...] if this helps. Gildardo Downing MD, FACS, [facility] Division of Bariatric Surgery [facility] | [address] | [place], [place] | [address] | Ludwin Tellez MD - 08/31/2018 8:54 [...] Ludwin Tellez MD General Surgery, PGY1 Pager: [phone] documented in this en counter Plan of [...] Rd | | | | | | [place], [place] | | | | | | [address] | | | | | | [phone] | | | | | | | | +--------+ + + + + | 09/22/ | Surgery | Surgery | Joseph Ireland RECURRENT VENTRAL | | 2018 | | | MD Bryson [address] | HERNIA REPAIR AND | | | | | [address] | EXCISION OF MESH | | | | | [place], [place] | | | | | | [address] | | | | | | [phone] | | | | | | | [...] GASTRECTOMY | ve | 12:25 PM | ([facility]) | | | | Surgic | PST [...] DEPT OF | [address] | [place], [place] | | | CARDIOLOGY | [address] | [address] | | + + + + + [...] ABDI | [address] | [place], [place] | | | CHARITO POINT OF CARE | [address] | [address] | | | TESTS | | | [...] [facility] | [address] | [place], [place] | | | [facility] | [address] | [address] | | | TESTS | | | [...] SURGEON: Gildardo Downing MD. | | | CIVIL TRANSPORTATION ENGINEER: Jamie Gonzales MD R6. ANESTHESIA: Ke Strong [...] | | | Gildardo Downing MD, FACS, [facility] Bariatric Surgery | | | | | [...] SURGEON: Gildardo Downing MD. | | | CIVIL TRANSPORTATION ENGINEER: Jamie Gonzales MD R6. ANESTHESIA: Ke Strong [...] | | | Gildardo Downing MD, FACS, [facility] Bariatric Surgery | | | | | [...] [place] | [address] | [place], [place] | | | CHARITO [facility] | [address] | [address] | | | TESTS | | | [...] 40.0-44.9, adult (HCC) | + + | Essential hypertension | + + | Morbid obesity (HCC) Morbid obesity | + + | Acute post-operative pain | + + documented in this encounter Administered Medications + +--------+ + +------+------+ | Medication Order | MAR | Action | Dose | Rate | Site | | | Action | Date | | | | + +--------+ + +------+------+ | acetaminophen (TYLENOL) tablet | Given | 08/31/20 | 1,000 mg | | | | 1,000 mg 1,000 mg, oral, | | 18 11:03 | | | | | PREPROCEDURE ONCE, 1 dose, | | AM PST | | | | | Starting Wed08/31/18 at 1038, | | | | | | | Until Wed08/31/18 at 1103 | | | | | | + +--------+ + +------+------+ +---+---+ | | | +---+---+ + +-------+ + +---+---+ | acetaminophen (TYLENOL) tablet | Given | 09/01/20 | 1,000 mg | | | | 1,000 mg 1,000 mg, oral, EVERY 8 | | 18 2:19 | | | | | HOURS, 3 doses, First dose on | | PM PST | | | | | 08/31/18 at 2100, Last dose on | | | | | | | Lucy 09/01/18 at 1300 | | | | | | + +-------+ + +---+---+ +-------+ + +---+---+ | Given | 09/01/20 | 1,000 mg | | | | | 18 5:23 | | | | | | AM PST | | | | +-------+ + +---+---+ | Given | 08/31/20 | 1,000 mg | | | | | 18 10:40 | | | | | | PM PST | | | | +-------+ + +---+---+ + +---+ | | | + +---+ | acetaminophen (TYLENOL) tablet | | | 1 dose, Starting Wed08/31/18 at | | | 1040, Until Wed08/31/18 at 1103 | | + +---+ | | | + +---+ + +-------+ +---------+---+---+ | atenolol (TENORMIN) tablet 12.5 | Given | 09/01/20 | 12.5 mg | | | | mg 12.5 mg, oral, TWICE DAILY, | | 18 8:31 | | | | | First dose on Wed08/31/18 at | | AM PST | | | | | 2100, Until Discontinued | | | | | | + +-------+ +---------+---+---+ +-------+ +---------+---+---+ | Given | 08/31/20 | 12.5 mg | | | | | 18 10:40 | | | | | | PM PST | | | | +-------+ +---------+---+---+ +---+---+ | | | +---+---+ + +-------+ +--------+---+---+ | celecoxib (CELEBREX) capsule | Given | 09/01/20 | 200 mg | | | | 200 mg 200 mg, oral, EVERY 12 | | 18 8:32 | | | | | HOURS, 2 doses, First dose on Wed | | AM PST | | | | | 08/31/18 at 2100, Last dose on | | | | | | | Lucy 09/01/18 at 0900 | | | | | | + +-------+ +--------+---+---+ +-------+ +--------+---+---+ | Given | 08/31/20 | 200 mg | | | | | 18 10:40 | | | | | | PM PST | | | | +-------+ +--------+---+---+ + +---+ | | | + +---+ | cetirizine (ZYRTEC) tablet 10 | | | mg 10 mg, oral, DAILY NEEDED, | | | Starting Wed08/31/18 at 2101, | | | Until Wed09/02/18 at 2314, | | | allergies | | + +---+ | | | + +---+ + +-------+ +--------+---+---------+ | cyanocobalamin (VITAMIN B-12) | Given | 09/01/20 | 1,000 | | Abdomen | | injection 1,000 mcg 1,000 mcg, | | 18 8:24 | mcg | | | | subcutaneous, DAILY, 1 dose, | | AM PST | | | | | First dose on [facility] 09/01/18 at 0900 | | | | | | + +-------+ +--------+---+---------+ +---+---+ | | | +---+---+ + +-------+ +------+---+---+ | dexamethasone (DECADRON) | Given | 09/01/20 | 4 mg | | | | injection 4 mg 4 mg, | | 18 9:51 | | | | | intravenous, ONCE, 1 dose, Lucy | | PM PST | | | | | 09/01/18 at 2000 | | | | | | + +-------+ +------+---+---+ +---+---+ | | | +---+---+ + +-------+ +--------+---+---+ | diazePAM (VALIUM) injection 2.5 | Given | 09/01/20 | 2.5 mg | | | | mg 2.5 mg, intravenous, EVERY 6 | | 18 3:09 | | | | | HOURS NEEDED, Starting Lucy | | PM PST | | | | | 09/01/18 at 1416, Until Fri | | | | | | | 09/02/18 at 0810, muscle spasms | | | | | | + +-------+ +--------+---+---+ +---+---+ | | | +---+---+ + +-------+ +------+---+---+ | diazePAM (VALIUM) tablet [...] | enoxaparin (LOVENOX) injection | Given | 08/31/20 | 40 mg | | Abdomen | | 40 mg 40 mg, subcutaneous, | | 18 11:06 | | | | | PREPROCEDURE ONCE, 1 dose, | | AM PST | | | | | Starting Wed08/31/18 at 1038, | | | | | | | Until Wed08/31/18 at 1106 | | | | | | + +-------+ +-------+---+---------+ +---+---+ | | | +---+---+ [...] PST | | | | +-------+ +-------+---+---------+ + +---+ | | | + +---+ | enoxaparin (LOVENOX) injection | | | 1 dose, Starting Wed08/31/18 at | | | 1040, Until Wed08/31/18 at 1106 | | + +---+ | | | + +---+ + +-------+ +--------+---+---+ | fentaNYL (SUBLIMAZE) injection | Given | 08/31/20 | 50 mcg | | | | 50 mcg 50 mcg, intravenous, | | 18 3:00 | | | | | POSTPROCEDURE PRN, 4 doses, | | PM PST | | | | | Starting Wed08/31/18 at 1322, | | | | | | | Until Wed08/31/18 at 2042, severe | | | | | | | pain while in Phase I Recovery | | | | | | + +-------+ +--------+---+---+ +-------+ +--------+---+---+ | Given | 08/31/20 | 50 mcg | | | | | 18 2:39 | | | | | | PM PST | | | | +-------+ +--------+---+---+ +---+---+ | | | +---+---+ + +-------+ +--------+---+---+ | gabapentin (NEURONTIN) capsule | Given | 08/31/20 | 600 mg | | | | 600 mg 600 mg, oral, | | 18 11:03 | | | | | PREPROCEDURE ONCE, 1 dose, | | AM PST | | | | | Starting Wed08/31/18 at 1038, | | | | | | | Until Wed08/31/18 at 1103 | | | | | | + +-------+ +--------+---+---+ + +---+ | | | + +---+ | gabapentin (NEURONTIN) capsule | | | 1 dose, Starting Wed08/31/18 at | | | 1040, Until Wed08/31/18 at 1103 | | + +---+ | | | + +---+ + +-------+ +--------+---+---+ | gabapentin (NEURONTIN) liquid | Given | 09/01/20 | 300 mg | | | | 300 mg 300 mg, oral, EVERY 8 | | 18 2:19 | | | | | HOURS, 3 doses, First dose on Wed | | PM PST | | | | | 08/31/18 at 2100, Last dose on | | | | | | | Lucy 09/01/18 at 1300 | | | | | | + +-------+ +--------+---+---+ +-------+ +--------+---+---+ | Given | 09/01/20 | 300 mg | | | | | 18 5:23 | | | | | | AM PST | | | | +-------+ +--------+---+---+ | Given | 08/31/20 | 300 mg | | | | | 18 10:40 | | | | | | PM PST | | | | +-------+ +--------+---+---+ +---+---+ | | | +---+---+ + +-------+ +--------+---+---+ | HYDROmorphone (DILAUDID) | Given | 11/07/20 | 0.3 mg | | | | injection 0.2-0.5 mg 0.2-0.5 mg, | | 18 6:48 | | | | | intravenous, POSTPROCEDURE PRN, | | PM PST | | | | | Starting Wed08/31/18 at 1322, | | | | | | | Until Wed08/31/18 at 2042, | | | | | | | moderate pain while in Phase I | | | | | | | Recovery | | | | | | + +-------+ +--------+---+---+ +-------+ +--------+---+---+ | Given | 08/31/20 | 0.4 mg | | | | | 18 6:02 | | | | | | PM PST | | | | +-------+ +--------+---+---+ | Given | 08/31/20 | 0.3 mg | | | | | 18 4:58 | | | | | | PM PST | | | | +-------+ +--------+---+---+ +---+---+ | | | +---+---+ + +-------+ +------+---+---+ | HYDROmorphone (DILAUDID) | Given | 08/31/20 | 1 mg | | | | injection 0.5-1 mg 0.5-1 mg, | | 18 11:05 | | | | | intravenous, EVERY 2 HOURS | | PM PST | | | | | NEEDED, Starting Wed08/31/18 at | | | | | | | 2045, Until Lucy 09/01/18 at 0611, | | | | | | | severe pain | | | | | | + +-------+ +------+---+---+ +-------+ +------+---+---+ | Given | 08/31/20 | 1 mg | | | | | 18 9:12 | | | | | | PM [...] +---+---+ +---+---+ | | | +---+---+ + + [...] | | +---+---+ + +-------+ +-------+---+---+ | metoclopramide HCl (REGLAN) | Given | 09/01/20 | 10 mg | | | | injection 10 mg 10 mg, | | 18 2:19 | | | | | intravenous, EVERY 6 HOURS, 4 | | PM PST | | | | | doses, First dose on Wed08/31/18 | | | | | | | at 2100, Last dose on Wed09/01/18 | | | | | | | at 1500 | | | | | | + +-------+ +-------+---+---+ +-------+ +-------+---+---+ | Given | 09/01/20 | 10 mg | | | | | 18 8:24 | | | | | | AM PST | | | | +-------+ +-------+---+---+ | Given | 09/01/20 | 10 mg | | | | | 18 4:18 | | | | | | AM [...] | ondansetron (ZOFRAN) injection | Given | 09/02/20 | 4 mg | | | | 4 mg 4 mg, intravenous, EVERY 12 | | 18 8:46 | | | | | HOURS, 4 doses, First dose on | | AM PST | | | | | 08/31/18 at 2100, Last dose on | | | | | | | 09/02/18 at 0900 | | | | | | + +-------+ +------+---+---+ +-------+ +------+---+---+ | Given | 09/01/20 | 4 mg | | | | | 18 9:51 | | | | | | PM PST | | | | +-------+ +------+---+---+ | Given | 09/01/20 | 4 mg | | | | | 18 8:24 | | | | | | AM [...] +---+---+---+ +---+---+ | | | +---+---+ + +-------+ +-------+---+---+ | promethazine (PHENERGAN) | Given | 08/31/20 | 25 mg | | | | injection 25 mg 25 mg, | | 18 2:39 | | | | | intravenous, ONCE, 1 dose, Wed | | PM PST | | | | | 08/31/18 at 1515 | | | | | | + [...] | | + + + +---------+---+ + + +---+ | | | + +---+ | scopolamine (TRANSDERM-SCOP) 1 | | | mg over 3 days 1 dose, Starting | | | Wed08/31/18 at 1815, Until Fri | | | 09/02/18 at 2314 | | + +---+ | | | + +---+ + +-------+ +-------+---+---+ | sertraline (ZOLOFT) tablet [...] | | +---+---+ + +-------+ +--------+---+---+ | thiamine (VITAMIN B-1) | Given | 09/01/20 | 100 mg | | | | injection 100 mg 100 mg, | | 18 8:25 | | | | | intravenous, DAILY, 1 dose, First | | AM PST | | | | | dose on [facility] 09/01/18 at 0900 | | | | | | + +-------+ +--------+---+---+ +---+---+ | | | +---+---+ documented in this encounter
--- OUTSIDE RECORDS SUMMARY | ~2019-09-13 | XMS | Encounter Summary ---
Demographics + + + | Address | [address] | | | [place] [address] | + + + | Home Phone [...] [place] | | | | | [address] | | + + + + + Care Team Providers + +------+ + | Care Lug Breaker And Wire Puller Name | Role | Phone | [...] 2018 | Encounter | [facility] [address] | [facility] [address] | vitamin ok? | | | | [address] | [address] [place], [place] | | | | | Mailcode: Center | [address] | | | | | for [facility] and | [phone] | | | | | [facility] | | | | | | [place], [place] | | | | | | [address] | | | | | | [phone] | | | +--------+ + + + [...] [address] | | | | | | [place], [place] | | | | | | [address] | | | | | | [phone] | | | | | | | | +--------+ + + + + | 09/22/ | Surgery | Surgery | Shu, | RECURRENT VENTRAL | | 2019 | | | MD Bryson [address] | HERNIA REPAIR AND | | | | | [address] | EXCISION OF MESH | | | | | [place], [place] | | | | | | [address] | | | | | | [phone] | | | | | | | | +--------+ + + + + documented as of this encounter Visit Diagnoses Not on filedocumented in this encounter"
--- OUTSIDE RECORDS SUMMARY | ~2019-09-13 | XMS | Encounter Summary ---
Demographics + + + | Address | [address] | | | [place] [address] | + + + | Home Phone [...] [place] | | | | | [address] | | + + + + + Care Team Providers + +------+ + | Care Unix Architect Name | Role | Phone | + +------+ + | Aleshia Martinez PA-C | PCP | | + +------+ + Encounter Details +--------+ + + + + | Date | Type | Department | Care Team | Description | +--------+ + + + + | 01/28/ | Abstract | Digestive Health | Clinic, Surgery | | | 2017 | | [place] at [facility] [address] | | | | | | [address] | | | | | | Mailcode: [place] | | | | | | for Health and | | | | | | Healing, [address] | | | | | | [place], [place] | | | | | | [address] | | | | | | [phone] | | | +--------+ + + + [...] Rd | | | | | | [place], [place] | | | | | | [address] | | | | | | [phone] | | | | | | | | +--------+ + + + + | 09/22/ | Surgery | Surgery | [place], | RECURRENT VENTRAL | | 2019 | | | MD Bryson [address] | HERNIA REPAIR AND | | | | | [address] | EXCISION OF MESH | | | | | [place], [place] | | | | | | [address] | | | | | | [phone] | | | | | | | | +--------+ + + + + documented as of this encounter Visit Diagnoses Not on filedocumented in this encounter"
--- OUTSIDE RECORDS SUMMARY | ~2019-09-13 | XMS | Encounter Summary ---
Demographics + + + | Address | [address] | | | [place] [address] | + + + | Home Phone [...] [place] | | | | | [address] | | + + + + + Care Team Providers + +------+ + | Care Master [place] Name | Role | Phone | + [...] 2017 | | Center at [facility] [address] | [address] | | | | | [address] | [facility] [place] | | | | | Mailcode: Center | [address] | | | | | for Health and | [phone] | | | | | [facility], [address] | | | | | | [place], [place] | | | | | | [address] | | | | | | [phone] | | | +--------+ + + + [...] Rd | | | | | | [place], [place] | | | | | | [address] | | | | | | [phone] | | | | | | | | +--------+ + + + + | 09/22/ | Surgery | Surgery | Shu, | RECURRENT VENTRAL | | 2018 | | | MD Bryson [address] | HERNIA REPAIR AND | | | | | [address] | EXCISION OF MESH | | | | | [place], [place] | | | | | | [address] | | | | | | [phone] | | | | | | | | +--------+ + + + + documented as of this encounter Visit Diagnoses Not on filedocumented in this encounter"
--- OUTSIDE RECORDS SUMMARY | ~2019-09-13 | XMS | Encounter Summary ---
Demographics + + + | Address | [address] | | | [place] [address] | + + + | Home Phone [...] [place] | | | | | [address] | | + + + + + Care Team Providers + +------+ + | Care Interviewing Clerk Name | Role | Phone | [...] | | [address] | [address] [place], | (Primary Dx); | | | | Mailcode: Center | [place] [address] | Vitamin D | | | | for Health and | [phone] | deficiency; | | | | Healing, Building [address] | | Gastroesophageal | | | | [place], [place] | | reflux disease, | | | | [address] | | esophagitis presence | | | | [phone] | | not specified; | | | [...] before eating anything. If your systems continue, [employer], call us, and we can consider adding [...] to plan and will call and/or send ActionFlow message if any issues. Start time 1050, end time 1120. I spent a total of 30 minutes face to face with this patie nt. Over 50% of visit was in counseling. Shanon Etienne, MSN, AG-ACNP, RN ACLS Bariatric Surgery Nurse Practitioner [facility] | [address] | [place], [place] | [address] | documented in this enco unter Plan [...] | | | | | | [facility] [place] | | | | | | [address] | | | | | | [phone] | | | | | | | | +--------+ + + + + | 09/22/ | Surgery | Surgery | Shu | RECURRENT VENTRAL | | 2018 | | | MD Devaughn Massey | HERNIA REPAIR AND | | | | | [address] | EXCISION OF MESH | | | | | [place], [place] | | | | | | [address] | | | | | | [phone] | | | | | | | [...]
--- OUTSIDE RECORDS SUMMARY | ~2019-09-13 | XMS | Encounter Summary ---
Demographics + + + | Address | [address] | | | [place] [address] | + + + | Home Phone [...] [place] | | | | | [address] | | + + + + + Care Team Providers + +------+ + | Care Parts Sales Counterperson Name | Role | Phone | + [...] | | | Procedures | [place], | [address] | | | | | PHYSICAL | [place] | for Health | | | | | THERAPY | [address] | and Healing, | | | | | REFERRAL | Phone: | Building 1, | | | | | | | [address] Floor | | | | | | Fax: | [place], [place] | | | | | | [phone] | [address] | | | | | | | Phone: | | | | | | | [phone] | | | | | | | Fax: | | | | | | | [phone] | +--------+--------+ + + + + Encounter [...] [facility] | [address] [place], | adult (HCC) (Primary | | | | [address] | [place] [address] | Dx); Essential | | | | Mailcode: [facility] | [phone] | hypertension; | | | [facility] | | Ventral hernia with | | | | and Healing, | | obstruction and | | | | [address] | | without gangrene; | | | | Floor [place], [place] | | Physical | | | | [address] | | deconditioning | | | | [phone] | | | +--------+---------+ + + + [...] Product Type: Workers Com p / Non-Medicare [facility] PHYSICAL THERAPY EVALUATION Past Medical History: Diagnosis [...] pain is not a significant clinical problem [facility] PHYSICAL THERAPY EVALUATION History of Presenting Problem: [...] to work due to pain/injury. lives with [facility]. Living situation/environment is limiting function: no Equipment [...] Moderate - Moderate complexity Complexity: Moderate - 12604 The patient requires services that can be [...] status. NESHA HANNON PT [facility] AT [facility] 1ST FLOOR Scheduled Appointment time: 1:00 [...] 1 Referral information Authorizing Provider: MARY ADAMS [[id number]] Onset/Referral Date: 10/27/17 Primary/Referral Diagnosis: E66.01, Z68.41 Morbid obesity with BMI of 40.0-44.9, adult (H CC) I10 Essential hypertension K43.6 Ventral hernia with obstruction and without gangrene R53.81 Physical deconditioning Start of care: 01/06/2018 Service period from: 01/06/2018 to: - Next progress report 02/05/2018 Insurance: Payor: WORKERS COMP OTHER / Plan: WORKERS COMP OTHER / Product Type: [employer] p / G-code:- code not needed. Number [...] Rd | | | | | | [place], [place] | | | | | | [address] | | | | | | [phone] | | | | | | | | +--------+ + + + + | 09/22/ | Surgery | Surgery | Shu, | RECURRENT VENTRAL | | 2018 | | | MD Devaughn Massey | HERNIA REPAIR AND | | | | | [address] | EXCISION OF MESH | | | | | [place], [place] | | | | | | [address] | | | | | | [phone] | | | | | | | | +--------+ + + + + documented as of this encounter Procedures + +--------+ + + + | Procedure Name | Priori | Date/Time | Associated Diagnosis | Comments | | | ty | | | | + +--------+ + + + | SD THERAPEUTIC | Routin | 01/10/2018 | Morbid [...]
--- OUTSIDE RECORDS SUMMARY | ~2019-09-13 | XMS | Encounter Summary ---
Demographics + + + | Address | [address] | | | [place] [address] | + + + | Home Phone [...] [place] | | | | | [address] | | + + + + + Care Team Providers + +------+ + | Care Help Desk Administrator Name | Role | Phone | + +------+ + | Aleshia Martinez PA-C | PCP | | + +------+ + Encounter Details +--------+ + + + + | Date | Type | Department | Care Team | Description | +--------+ + + + + | 08/31/ | Procedure | 6A Intra Op [facility] | | | | 2018 | Pass | [facility] | | | | | | Admitting Desk | | | | | | Located on the 9th | | | | | | floor [address] | | | | | | [address] | | | | | | [place], [place] | | | | | | [address] | | | +--------+ + + + [...] Rd | | | | | | [place], [place] | | | | | | [address] | | | | | | [phone] | | | | | | | | +--------+ + + + + | 09/22/ | Surgery | Surgery | Shu, | RECURRENT VENTRAL | | 2019 | | | MD Bryson [address] | HERNIA REPAIR AND | | | | | [address] | EXCISION OF MESH | | | | | [place], [place] | | | | | | [address] | | | | | | [phone] | | | | | | | | +--------+ + + + + documented as of this encounter Visit Diagnoses Not on filedocumented in this encounter"
--- OUTSIDE RECORDS SUMMARY | ~2019-09-13 | XMS | Encounter Summary ---
Demographics + + + | Address | [address] | | | [place] [address] | + + + | Home Phone | | + + + | Preferred Language | Unknown | + + + | Marital Status | | + + + | Sabianist Affiliation | CHR | + + + [...] [place] | | | | | [address] | | + + + + + Care Team Providers + +------+ + | Care Clinical Data Programmer Name | Role | Phone | + +------+ + | Aleshia Martinez PA-C | PCP | | + +------+ + Encounter Details +--------+ + + + + | Date | Type | Department | Care Team | Description | +--------+ + + + + | 08/29/ | Pharmacy | Outpatient Retail | | | | 2017 | Visit | [facility] | | | | | | [address] | | | | | | Jessica [place]ul[place], | | | | | | [place] [address] | | | | | | [phone] | | | +--------+ + + + [...] 2018 | Encounter | | MD Bryson [address] | | | | | | [facility] | | | | | | [place], [place] | | | | | | [address] | | | | | | [phone] | | | | | | | | +--------+ + + + + | 09/22/ | Surgery | Surgery | Shu | RECURRENT VENTRAL | | 2018 | | | Bryson, MD [address] | HERNIA REPAIR AND | | | | | [address] | EXCISION OF MESH | | | | | [place], [place] | | | | | | [address] | | | | | | [phone] | | | | | | | | +--------+ + + + + documented as of this encounter Visit Diagnoses Not on filedocumented in this encounter"
--- OUTSIDE RECORDS SUMMARY | ~2019-09-13 | XMS | Encounter Summary ---
Demographics + + + | Address | [address] | | | [place] [address] | + + + | Home Phone [...] [place] | | | | | [address] | | + + + + + Care Team Providers + +------+ + | Care Maintenance Service Dispatcher Name | Role | Phone | [...] 2018 | Visit | [facility] at [facility] [address] | ACNP [address] | sleeve gastrectomy | | | | [address] | Ave [place], [place] | (Primary Dx); | | | | Mailcode: Center | [address] | Vitamin D | | | | for Health and | | deficiency; Vitamin | | | | [facility] 2 | | B 12 deficiency; | | | | [place], [place] | | Morbid obesity (HCC) | | | | [address] | | | | | | | [...] encounter Patient Instructions Patient Instructions Emily Martinez [facility] - 09/07/2018 10:50 AM PST3. Take acid solar installer pv fo r first 3 mos, then wean [...] cium, dairy or acid reducers) Calcium citrate 0162-4409 mg per day with vitamin D 1000 [...] stomach treated with diaza romeo. Scheduled with personnel worker following this appointment. Arrived on time, rooming [...] of fallopian tube Laparoscopic sleeve gastrectomy 08/31/2018 [facility] [address] Downing Social History Social History Marital [...] week 2. Labs:none today 3. Take acid solar installer pv for first 3 mos, then wean off [...] in appointment: 30 Emily Martinez DNP, ACNP, WORKDAY MANAGER Child Development Associate Teacher Bariatric [facility] documented in this encounter Plan of Treatment [...] Rd | | | | | | [place] | | | | | | [address] | | | | | | [phone] | | | | | | | | +--------+ + + + + | 09/22/ | Surgery | Surgery | Shu, | RECURRENT VENTRAL | | 2018 | | | MD Devaughn Massey | HERNIA REPAIR AND | | | | | [address] | EXCISION OF MESH | | | | | [place], [place] | | | | | | [address] | | | | | | [phone] | | | | | | | [...]
--- OUTSIDE RECORDS SUMMARY | ~2019-09-13 | XMS | Encounter Summary ---
Demographics + + + | Address | [address] | | | [place] [address] | + + + | Home Phone [...] [place] | | | | | [address] | | + + + + + Care Team Providers + +------+ + | Care Briquetting Machine Operator Name | Role | Phone [...] | 2018 | Encounter | Center at [facility] [address] | | insurance plan for | | | | [address] | | surgery | | | | Mailcode: Center | | | | | | for Health and | | | | | | Healing, Building [address] | | | | | | [place], [place] | | | | | | [address] | | | | | | [phone] | | | +--------+ + + + [...] Rd | | | | | | [place], [place] | | | | | | [address] | | | | | | [phone] | | | | | | | | +--------+ + + + + | 09/22/ | Surgery | Surgery | Shu, | RECURRENT VENTRAL | | 2019 | | | MD Bryson [address] | HERNIA REPAIR AND | | | | | [address] | EXCISION OF MESH | | | | | [place] | | | | | | [address] | | | | | | [phone] | | | | | | | | +--------+ + + + + documented as of this encounter Visit Diagnoses Not on filedocumented in this encounter"
--- OUTSIDE RECORDS SUMMARY | ~2019-09-13 | XMS | Encounter Summary ---
Demographics + + + | Address | [address] | | | [place] [address] | + + + | Home Phone [...] [place] | | | | | [address] | | + + + + + Care Team Providers + +------+ + | Care Straightedge Machine Operator Helper Name | Role | Phone | [...] 2018 | on | Center at [facility] [address] | | | | | | [address] | | | | | | Mailcode: Center | | | | | | for Health and | | | | | | Healing, Building [address] | | | | | | [place], [place] | | | | | | [address] | | | | | | [phone] | | | +--------+ + + + [...] Rd | | | | | | [place], [place] | | | | | | [address] | | | | | | [phone] | | | | | | | | +--------+ + + + + | 09/22/ | Surgery | Surgery | Shu, | RECURRENT VENTRAL | | 2019 | | | MD Bryson [address] | HERNIA REPAIR AND | | | | | [address] | EXCISION OF MESH | | | | | [place], [place] | | | | | | [address] | | | | | | [phone] | | | | | | | | +--------+ + + + + documented as of this encounter Visit Diagnoses Not on filedocumented in this encounter"
--- OUTSIDE RECORDS SUMMARY | ~2019-09-13 | XMS | Encounter Summary ---
Demographics + + + | Address | [address] | | | [place] [address] | + + + | Home Phone [...] + + + | Author | [facility] | + + + | Organization | [facility] | + + [...] [place] | | | | | [address] | | + + + + + Care Team Providers + +------+ + | Care Sheriff'S Officer Name | Role | Phone | [...] | | | or gangrene | | [place] for | | | | | | | Health and | | | | | | | Healing, | | | | | | | Building [address] | | | | | | | [place], [place] | | | | | | | [address] | | | | | | | Phone: | | | | | | | [phone] | | | | | | | Fax: | | | | | | | [phone] | + +--------+ + + + + [...] | | | [address] | [address] | (Primary Dx) | | | | Mailcode: Center | [place], [place] | | | | | for Health and | [address] | | | | | [facility] [place] [address] | | | | | | [place], [place] | | | | | | [address] | | | | | | [phone] | | | +--------+---------+ + + + [...] of visit: 10:42am to 11:08am (26 minutes admq-og-[id number] with patient) Surgery: Sleeve Gastrectomy Date of [...] multivitamin & mineral (with iron) supplement, 2/day -7953-8395 mg calcium citrate with vitamin D/day (take in divided doses, not within 2 hour s of multivitamin or iron supplement) -500 mcg/day sublingual B12 supplement (or monthly injections) Continued to reinforce importance of mindful eating. Continue to increase physical activity. Follow up in [address], LD Pager # [phone] signed by Tea Reece RD at 09/29/2018 11:21 AM PSTdocuformerly [facility] ed in this encounter Plan of [...] [address] | | | | | | [address] | | | | | | [place], [place] | | | | | | [address] | | | | | | [phone] | | | | | | | | +--------+ + + + + | 09/22/ | Surgery | Surgery | Shu, | RECURRENT VENTRAL | | 2019 | | | MD Bryson [address] | HERNIA REPAIR AND | | | | | [address] | EXCISION OF MESH | | | | | [place], [place] | | | | | | [address] | | | | | | [phone] | | | | | | | | +--------+ + + + + documented as of this encounter Procedures + +--------+ + + + | Procedure Name | Priori | Date/Time | Associated Diagnosis | Comments | | | ty | | | | + +--------+ + + + | SD MNT RE-ASSESSMNT | Routin | 09/29/2018 | [...]
--- OUTSIDE RECORDS SUMMARY | ~2019-09-13 | XMS | Encounter Summary ---
Demographics + + + | Address | [address] | | | [place] [address] | + + + | Home Phone [...] [place] | | | | | [address] | | + + + + + Care Team Providers + +------+ + | Care Fur Matcher Name | Role | Phone | + +------+ + PCP | Unavailable | + +------+ + Reason for Visit + + + | Reason | Comments | + + + | Referral To Surgery | | | - General | | + + + Encounter Details +--------+ + + + + | Date | Type | Department | Care Team | Description | +--------+ + + + + | 06/16/ | Abstract | Digestive Health | Clinic, Surgery | Referral To Surgery | | 2017 | | [place] [facility] [address] | | - General | | | | [address] | | | | | | Mailcode: [place] | | | | | | for Health and | | | | | | [facility], [address] | | | | | | [place], [place] | | | | | | [address] | | | | | | [phone] | | | +--------+ + + + [...] Rd | | | | | | [place], [place] | | | | | | [address] | | | | | | [phone] | | | | | | | | +--------+ + + + + | 09/22/ | Surgery | Surgery | Shu, | RECURRENT VENTRAL | | 2018 | | | MD Devaughn Massey | HERNIA REPAIR AND | | | | | [address] | EXCISION OF MESH | | | | | [place], [place] | | | | | | [address] | | | | | | [phone] | | | | | | | | +--------+ + + + + documented as of this encounter Visit Diagnoses Not on filedocumented in this encounter"
--- OUTSIDE RECORDS SUMMARY | ~2019-09-13 | XMS | Encounter Summary ---
Demographics + + + | Address | [address] | | | [place] [address] | + + + | Home Phone [...] [place] | | | | | [address] | | + + + + + Care Team Providers + +------+ + | Care Seedling Sorter Name | Role | Phone | + [...] | Center at [facility] [address] | MD [address] | | | | | [address] | [place], [place] | | | | | Mailcode: Center | [address] | | | | | for Health and | [phone] | | | | | [place] [address] | | | | | | [place], [place] | | | | | | [address] | | | | | | [phone] | | | +--------+ + + + [...] | 2019 | Encounter | | MD Devaughn Massey | | | | | | [address] | | | | | | [facility] [place] | | | | | | [address] | | | | | | [phone] | | | | | | | | +--------+ + + + + | 09/22/ | Surgery | Surgery | Shu | RECURRENT VENTRAL | | 2019 | | | MD Devaughn Massey | HERNIA REPAIR AND | | | | | [address] | EXCISION OF MESH | | | | | [place], [place] | | | | | | [address] | | | | | | [phone] | | | | | | | | +--------+ + + + + documented as of this encounter Visit Diagnoses Not on filedocumented in this encounter"
--- OUTSIDE RECORDS SUMMARY | ~2019-09-13 | XMS | Encounter Summary ---
Demographics + + + | Address | [address] | | | [place] [address] | + + + | Home Phone [...] | + + + + + | Stewrat Corbett | ECON | [address] | | | | | [place] | | | | | [address] | | + + + + + Care Team Providers + +------+ + | Care Truck Greaser Name | Role | Phone | + +------+ + | Aleshia Martinez PA-C | PCP | | + +------+ + Encounter Details +--------+ + + + + | Date | Type | Department | Care Team | Description | +--------+ + + + + | 09/05/ | Telephone | Digestive Health | Gildardo Downing, | | | 2017 | | Center at [facility] [address] | [address] | | | | | [address] | [facility] [place] | | | | | Mailcode: Center | [address] | | | | | for Health and | [phone] | | | | | [facility], [address] | | | | | | [place], [place] | | | | | | [address] | | | | | | [phone] | | | +--------+ + + + [...] Rd | | | | | | [place], [place] | | | | | | [address] | | | | | | [phone] | | | | | | | | +--------+ + + + + | 09/22/ | Surgery | Surgery | Shu, | RECURRENT VENTRAL | | 2019 | | | MD Bryson [address] | HERNIA REPAIR AND | | | | | [address] | EXCISION OF MESH | | | | | [facility] [place] | | | | | | [address] | | | | | | [phone] | | | | | | | | +--------+ + + + + documented as of this encounter Visit Diagnoses Not on filedocumented in this encounter"
--- OUTSIDE RECORDS SUMMARY | ~2019-09-13 | XMS | Encounter Summary ---
Demographics + + + | Address | [address] | | | [place] [address] | + + + | Home Phone [...] [place] | | | | | [address] | | + + + + + Care Team Providers + +------+ + | Care Corrections Nurse Name | Role | Phone | [...] Rd | | | | | | [place] | | | | | | [address] | | | | | | [phone] | | | +--------+ + + + [...] [address]sey | | | | | | [facility] [address] | | | | | | [place], [place] | | | | | | [address] | | | | | | [phone] | | | | | | | | +--------+ + + + + | 09/22/ | Surgery | Surgery | Shu | RECURRENT VENTRAL | 2018 | | | Bryson, MD [address] | HERNIA REPAIR AND | | | | | [address] | EXCISION OF MESH | | | | | [facility] [place] | | | | | | [address] | | | | | | [phone] | | | | | | | [...] [facility] | [address] | [place] [address] | | | SERVICES, CORE | SHAHLA [...] [facility] | [address] | [place] [address] | | | SERVICES, CORE | [address] [...] [facility] | [address] | [place] [address] | | | SERVICES, CORE | [address] | | | + + + + + documented in this encounter Visit Diagnoses Not on filedocumented in this encounter"
--- OUTSIDE RECORDS SUMMARY | ~2019-09-13 | XMS | Encounter Summary ---
Demographics + + + | Address | [address] | | | [place] [address] | + + + | Home Phone [...] [place] | | | | | [address] | | + + + + + Care Team Providers + +------+ + | Care Rn Review Name | Role | Phone | + [...] | | | | | | | [place], [place] | | | | | | | [address] | | | | | | | Phone: | | | | | | | [phone] | | | | | | | Fax: | | | | | | | [phone] | +--------+--------+ + + + + Encounter [...] | | | [address] | [place], [place] | adult (HCC) (Primary | | | | Mailcode: Center | [address] | Dx); Borderline | | | | for Health and | [phone] | diabetes; Essential | | | | Healing, [address] | | hypertension; | | | | [place], [place] | | Ventral hernia with | | | | [address] | | obstruction and | | | | [phone] | | without gangrene | +--------+---------+ + [...] the resident s note. Es Bingham MD, [facility], FACS ES BINGHAM MD [facility] 6TH FLOOR [address] Mailcode: [facility] [place] [address] Nba Finn MD - 02/28/2018 2:25 PM PDT [facility] Department of Surgery [facility] [...] feels depressed since her was gone to [facility], improving since he returned home on 02/25, [...] Nba Amaya MD General Surgery, PGY-2 Pager [phone] documented in thi s encounter Plan of [...] Rd | | | | | | [place], [place] | | | | | | [address] | | | | | | [phone] | | | | | | | | +--------+ + + + + | 09/22/ | Surgery | Surgery | Shu, | RECURRENT VENTRAL | | 2019 | | | MD Bryson [address] | HERNIA REPAIR AND | | | | | [address] | EXCISION OF MESH | | | | | [place], [place] | | | | | | [address] | | | | | | [phone] | | | | | | | [...]
--- OUTSIDE RECORDS SUMMARY | ~2019-09-13 | XMS | Encounter Summary ---
Demographics + + + | Address | [address] | | | [place] [address] | + + + | Home Phone [...] [place] | | | | | [address] | | + + + + + Care Team Providers + +------+ + | Care Inspector Agricultural Commodities Name | Role | Phone | + +------+ + | Aleshia Martinez PA-C | PCP | | + +------+ + Encounter Details +--------+ + + + + | Date | Type | Department | Care Team | Description | +--------+ + + + + | 05/03/ | Abstract | Digestive Health | Clinic, Surgery | | | 2017 | | [place] [facility] [address] | | | | | | [address] | | | | | | Mailcode: [place] | | | | | | for Health and | | | | | | Healing, Building [address] | | | | | | [place], [place] | | | | | | [address] | | | | | | [phone] | | | +--------+ + + + [...] Rd | | | | | | [place], [place] | | | | | | [address] | | | | | | [phone] | | | | | | | | +--------+ + + + + | 09/22/ | Surgery | Surgery | [place], | RECURRENT VENTRAL | | 2019 | | | MD Bryson [address] | HERNIA REPAIR AND | | | | | [address] | EXCISION OF MESH | | | | | [place], [place] | | | | | | [address] | | | | | | [phone] | | | | | | | | +--------+ + + + + documented as of this encounter Visit Diagnoses Not on filedocumented in this encounter"
--- OUTSIDE RECORDS SUMMARY | ~2019-09-13 | XMS | Encounter Summary ---
Demographics + + + | Address | [address] | | | [place] [address] | + + + | Home Phone [...] [place] | | | | | [address] | | + + + + + Care Team Providers + +------+ + | Care Program Instructor Name | Role | Phone | [...] | | [address] | Ave [place], [place] | encounter) | | | | Mailcode: Center | [address] | | | | | for Health and | [phone] | | | | | [facility], [facility] [address] | | | | | | [place], [place] | | | | | | [address] | | | | | | [phone] | | | +--------+ + + + [...] Rd | | | | | | [place], [place] | | | | | | [address] | | | | | | [phone] | | | | | | | | +--------+ + + + + | 09/22/ | Surgery | Surgery | Shu, | RECURRENT VENTRAL | | 2018 | | | MD Devaughn Massey | HERNIA REPAIR AND | | | | | [address] | EXCISION OF MESH | | | | | [place], [place] | | | | | | [address] | | | | | | [phone] | | | | | | | | +--------+ + + + + documented as of this encounter Visit Diagnoses Not on filedocumented in this encounter"
--- OUTSIDE RECORDS SUMMARY | ~2019-09-13 | XMS | Encounter Summary ---
Demographics + + + | Address | [address] | | | [place] [address] | + + + | Home Phone [...] [place] | | | | | [address] | | + + + + + Care Team Providers + +------+ + | Care Shank Breaker Name | Role | Phone | + [...] 2018 | Visit | Center at [facility] [address] | ACNP [address] | sleeve gastrectomy | | | | [address] | Ave [place], [place] | (Primary Dx); | | | | Mailcode: Center | [address] | Vitamin D | | | | for Health and | | deficiency; Vitamin | | | | [facility] 2 | | B 12 deficiency; | | | | [place], [place] | | Morbid obesity (HCC) | | | | [address] | | | | | | | [...] encounter Patient Instructions Patient Instructions Emily Martinez [facility] - 09/07/2018 10:50 AM PST3. Take acid toll bridge operator fo r first 3 mos, then wean [...] cium, dairy or acid reducers) Calcium citrate 7654-4822 mg per day with vitamin D 1000 [...] stomach treated with diaza romeo. Scheduled with assistant grocery store manager following this appointment. Arrived on time, rooming [...] of fallopian tube Laparoscopic sleeve gastrectomy 08/31/[address] [facility] [address] Downing Social History Social [...] week 2. Labs:none today 3. Take acid toll bridge operator for first 3 mos, then wean off [...] in appointment: 30 Emily Martinez DNP, ACNP, RUBY ON RAILS ENGINEER Conductor/Engineer Bariatric Surgery [facility] documented in this encounter Plan of [...] Rd | | | | | | [place] | | | | | | [address] | | | | | | [phone] | | | | | | | | +--------+ + + + + | 09/22/ | Surgery | Surgery | Shu, | RECURRENT VENTRAL | | 2018 | | | MD Devaughn Massey | HERNIA REPAIR AND | | | | | [address] | EXCISION OF MESH | | | | | [place], [place] | | | | | | [address] | | | | | | [phone] | | | | | | | [...]
--- OUTSIDE RECORDS SUMMARY | ~2019-09-13 | XMS | Encounter Summary ---
Demographics + + + | Address | [address] | | | [place] [address] | + + + | Home Phone [...] [place] | | | | | [address] | | + + + + + Care Team Providers + +------+ + | Care Photoengraving Retoucher Name | Role | Phone | + [...] 2018 | on | Center at [facility] [address] | | | | | | [address] | | | | | | Mailcode: Center | | | | | | for Health and | | | | | | Healing, Building [address] | | | | | | [place], [place] | | | | | | [address] | | | | | | [phone] | | | +--------+ + + + [...] Rd | | | | | | [place], [place] | | | | | | [address] | | | | | | [phone] | | | | | | | | +--------+ + + + + | 09/22/ | Surgery | Surgery | Shu, | RECURRENT VENTRAL | | 2019 | | | MD Bryson [address] | HERNIA REPAIR AND | | | | | [address] | EXCISION OF MESH | | | | | [place], [place] | | | | | | [address] | | | | | | [phone] | | | | | | | | +--------+ + + + + documented as of this encounter Visit Diagnoses Not on filedocumented in this encounter"
--- OUTSIDE RECORDS SUMMARY | ~2019-09-13 | XMS | Encounter Summary ---
Demographics + + + | Address | [address] | | | [place] [address] | + + + | Home Phone [...] [place] | | | | | [address] | | + + + + + Care Team Providers + +------+ + | Care Front Worker Name | Role | Phone | [...] | 2018 | Encounter | Center at [facility] [address] | | support group | | | | [address] | | | | | | Mailcode: [place] | | | | | | for Health and | | | | | | Healing, [address] | | | | | | [place], [place] | | | | | | [address] | | | | | | [phone] | | | +--------+ + + + [...] Rd | | | | | | [place], [place] | | | | | | [address] | | | | | | [phone] | | | | | | | | +--------+ + + + + | 09/22/ | Surgery | Surgery | Shu, | RECURRENT VENTRAL | | 2018 | | | MD Bryson [address] | HERNIA REPAIR AND | | | | | [address] | EXCISION OF MESH | | | | | [place], [place] | | | | | | [address] | | | | | | [phone] | | | | | | | | +--------+ + + + + documented as of this encounter Visit Diagnoses Not on filedocumented in this encounter"
--- OUTSIDE RECORDS SUMMARY | ~2019-09-13 | XMS | Encounter Summary ---
Demographics + + + | Address | [address] | | | [place] [address] | + + + | Home Phone [...] [place] | | | | | [address] | | + + + + + Care Team Providers + +------+ + | Care Mechanical Maintenance Worker Name | Role | Phone | [...] | 2019 | Encounter | Center at [facility] [address] | AGACNP [address] | | | | | [address] | [place], [place] | | | | | Mailcode: Center | [address] | | | | | for Health and | [phone] | | | | | Healing, [address] | | | | | | [place], [place] | | | | | | [address] | | | | | | [phone] | | | +--------+ + + + [...] Rd | | | | | | [facility] [place] | | | | | | [address] | | | | | | [phone] | | | | | | | | +--------+ + + + + | 09/22/ | Surgery | Surgery | Shu, | RECURRENT VENTRAL | | 2018 | | | MD Devaughn Massey | HERNIA REPAIR AND | | | | | [address] | EXCISION OF MESH | | | | | [place], [place] | | | | | | [address] | | | | | | [phone] | | | | | | | | +--------+ + + + + + +------+--------+ + + [...]
--- OUTSIDE RECORDS SUMMARY | ~2019-09-13 | XMS | Encounter Summary ---
Demographics + + + | Address | [address] | | | [place] [address] | + + + | Home Phone [...] [place] | | | | | [address] | | + + + + + Care Team Providers + +------+ + | Care Web Press Operator Assistant Name | Role | Phone | [...] | | | or gangrene | | [place] for | | | | | | | Health and | | | | | | | Healing, | | | | | | | Building [address] | | | | | | | [place], [place] | | | | | | | [address] | | | | | | | Phone: | | | | | | | [phone] | | | | | | | Fax: | | | | | | | [phone] | + +--------+ + + + + Encounter Details +--------+---------+ + + + | Date | Type | Department | Care Team | Description | +--------+---------+ + + + | 09/07/ | Office | Digestive Health | [address] | S/P laparoscopic | | 2018 | Visit | Center at [facility] [address] | [address] | sleeve gastrectomy | | | | [address] | [address] [place], | (Primary Dx); Morbid | | | | Mailcode: [place] | [place] [address] | obesity with BMI of | | | | for Health and | | 40.0-44.9, adult | | | | Healing, Building [address] | | ([facility]); Borderline | | | | [place], [place] | | diabetes | | | | [address] | | | | | | [phone] | | | +--------+---------+ + + + [...] encounter Progress Notes Chetna Alves, RD - 09/07/2018 1:00 PM PST Nutrition Counseling: Post-op Bariatric Surgery Follow-Up Patient referred by: No Referring Provider Per Patient NO REFERRING PROVIDER PER PT Documented time of visit: 1:03 to 1:28 (25 minutes [id number] with patient) Surgery: Sleeve Gastrectomy Date of [...] choices: Water, Popsicles, Powerade Supplementation: multivitamin - [place]'s, calcium with vitamin D - Citracal Petites [...] multivitamin & mineral (with iron) supplement, 2/day -9248-6240 mg calcium citrate with vitamin D/day (take [...] month post-op Chetna Alves RD, CNSC, LD [facility] Bariatrics [phone] documented in this enco unter Plan of [...] Rd | | | | | | [place], [place] | | | | | | [address] | | | | | | [phone] | | | | | | | | +--------+ + + + + | 09/22/ | Surgery | Surgery | Shu, | RECURRENT VENTRAL | | 2019 | | | MD Bryson [address] | HERNIA REPAIR AND | | | | | [address] | EXCISION OF MESH | | | | | [place], [place] | | | | | | [address] | | | | | | [phone] | | | | | | | | +--------+ + + + + documented as of this encounter Procedures + +--------+ + + + | Procedure Name | Priori | Date/Time | Associated Diagnosis | Comments | | | ty | | | | + +--------+ + + + | [place] MNT RE-ASSESSMNT | Routin | 09/07/2018 | Morbid obesity | | | X15MIN | e | 3:05 PM | with BMI of | | | | | PST | 40.0-44.9, adult | | | | | | ([facility]) Borderline | | | | | | [...]
--- OUTSIDE RECORDS SUMMARY | ~2019-09-13 | XMS | Encounter Summary ---
Demographics + + + | Address | [address] | | | [place] [address] | + + + | Home Phone | | + + + | Preferred Language | Unknown | + + + | Marital Status | | + + + | Zoroastrianism Affiliation | CHR | + + + [...] [place] | | | | | [address] | | + + + + + Care Team Providers + +------+ + | Care X Ray Developer Name | Role | Phone | [...] Outside Records | | 2018 | | [place] [address] | [facility] [address] | Received (01/22/2018 | | | | [place] Mailcode: CH4[facility] | [place], [place] | ED Notes- St. | | | | [facility] | [address] | Wilfr[place]) | | | | and Healing, | [phone] | | | | | [facility] | | | | | | [place], [place] | | | | | | [address] | | | | | | [phone] | | | +--------+ + + + [...] [place] | | | | | | [address] | | | | | | [phone] | | | | | | | | +--------+ + + + + | 09/22/ | Surgery | Surgery | Shu, | RECURRENT VENTRAL | | 2019 | | | MD Bryson [address] | HERNIA REPAIR AND | | | | | [address] | EXCISION OF MESH | | | | | [place] | | | | | | [address] | | | | | | [phone] | | | | | | | | +--------+ + + + + documented as of this encounter Visit Diagnoses Not on filedocumented in this encounter"
--- OUTSIDE RECORDS SUMMARY | ~2019-09-13 | XMS | Encounter Summary ---
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 Download the connie on your smartphone or visit the website [email or web address]. Click "join a meeting " enter the meeting number below at the scheduled time. Our monthly schedule is as follows: The Wednesday of every month at 5:30PM The Wednesday of every month at 1:00PM The meeting number is: [phone] Please note that this is an optional [...] with her boyfriend-they are driving down to [place] today from this appointme nt. She has [...] fallopian tube Laparoscopic sleeve gastrectomy 08/31/[address] [facility] [address] Downing Social History Socioeconomic History Marital [...] file Gets together: Not on file Attends caodaism service: Not on file Active member of [...] to plan and will call and/or send [employer] message if any issues. Start time 1445, end time 1510. I spent a total of 25 minutes face to face with this patie nt. Over 50% of visit was in counseling. JOSETTE Seaman Bariatric Surgery Nurse Practitioner [facility] | [facility] [address] | [place], [place] | [address] | documented in th is encounter Plan of Treatment +--------+ + + [...] | Encounter | | MD Devaughn Massey [address] | | | | | | [address] | | | | | | [place], [place] | | | | | | [address] | | | | | | [phone] | | | | | | | | +--------+ + + + + | 09/22/ | Surgery | Surgery | Shu, | RECURRENT VENTRAL | | 2019 | | | MD Devaughn Massey [address] | HERNIA REPAIR AND | | | | | [address] | EXCISION OF MESH | | | | | [facility] [place] | | | | | | [address] | | | | | | [phone] | | | | | | | [...]
--- OUTSIDE RECORDS SUMMARY | ~2019-09-13 | XMS | Encounter Summary ---
Demographics + + + | Address | [address] | | | [place] [address] | + + + | Home Phone [...] [place] | | | | | [address] | | + + + + + Care Team Providers + +------+ + | Care Membership Director Name | Role | Phone | + +------+ + | Aleshia Martinez PA-C | PCP | | + +------+ + Encounter Details +--------+ + + + + | Date | Type | Department | Care Team | Description | +--------+ + + + + | 01/07/ | Telephone | Digestive Health | Yumiko Clarke, | | | 2017 | | Center at [facility] [address] | [facility] [address] | | | | | [address] | [place] [facility] [place] | | | | | Mailcode: Center | [address] | | | | | for Health and | [phone] | | | | | [facility], [address] | | | | | | [place], [place] | | | | | | [address] | | | | | | [phone] | | | +--------+ + + + [...] Rd | | | | | | [place], [place] | | | | | | [address] | | | | | | [phone] | | | | | | | | +--------+ + + + + | 09/22/ | Surgery | Surgery | Shu, | RECURRENT VENTRAL | | 2018 | | | MD Bryson [address] | HERNIA REPAIR AND | | | | | [address] | EXCISION OF MESH | | | | | [place], [place] | | | | | | [address] | | | | | | [phone] | | | | | | | [...]
--- OUTSIDE RECORDS SUMMARY | ~2019-09-13 | XMS | Encounter Summary ---
Demographics + + + | Address | [address] | | | [place] [address] | + + + | Home Phone | | + + + | Preferred Language | Unknown | + + + | Marital Status | | + + + | Catholic Affiliation | CHR | + + [...] [place] | | | | | [address] | | + + + + + Care Team Providers + +------+ + | Care Paratransit Operator Name | Role | Phone | [...] | | 2017 | | Center at [facility] [address] | | Bariatric Surgery | | | | [address] | | | | | | Mailcode: Center | | | | | | for Health and | | | | | | [facility], [address] | | | | | | [place], [place] | | | | | | [address] | | | | | | [phone] | | | +--------+ + + + [...] Rd | | | | | | [place], [place] | | | | | | [address] | | | | | | [phone] | | | | | | | | +--------+ + + + + | 09/22/ | Surgery | Surgery | Shu | RECURRENT VENTRAL | | 2019 | | | MD Bryson [address] | HERNIA REPAIR AND | | | | | [address] | EXCISION OF MESH | | | | | [place], [place] | | | | | | [address] | | | | | | [phone] | | | | | | | | +--------+ + + + + documented as of this encounter Visit Diagnoses Not on filedocumented in this encounter"
--- OUTSIDE RECORDS SUMMARY | ~2019-09-13 | XMS | Encounter Summary ---
Demographics + + + | Address | [address] | | | [place] [address] | + + + | Home Phone [...] [place] | | | | | [address] | | + + + + + Care Team Providers + +------+ + | Care Finance Clerk Name | Role | Phone | + +------+ + | Aleshia Martinez PA-C | PCP | | + +------+ + Encounter Details +--------+------+ + + + | Date | Type | Department | Care Team | Description | +--------+------+ + + + | 01/06/ | Lab | Laboratory at [facility] | | Morbid obesity with | | 2017 | | [address] | | BMI of 40.0-44.9, | | | | [place], [place] | | adult (HCC); | | | | [address] | | Borderline diabetes; | | | | [phone] | | Essential | | | | [...] Rd | | | | | | [place], [place] | | | | | | [address] | | | | | | [phone] | | | | | | | | +--------+ + + + + | 09/22/ | Surgery | Surgery | Shu, | RECURRENT VENTRAL | | 2019 | | | MD Bryson [address] | HERNIA REPAIR AND | | | | | [address] | EXCISION OF MESH | | | | | [place], [place] | | | | | | [address] | | | | | | [phone] | | | | | | | [...] results section. | | | | | ([facility]) Borderline | | | | | | [...] results section. | | | | | ([facility]) Borderline | | | | | | [...] [facility] | [address] | [place] [address] | | | SERVICES, CORE | PARK [...] | [facility] | [address] | [place] [address] | | | SERVICES, KUSH | SHAHLA [...] | [facility] | | considered for monitoring termite control servicer glycemic control in patients with: | LABORATORY [...] [facility] | [address] | [place] [address] | | | SERVICES, SPECIAL | SHAHLA [...] | | | | | determined by [employer] | | | | | | Laboratories. See | | | | | | Compliance Statement B: | | | | | | Mimosa.Relationship Science/CSPerformed | | | | | | by DFMSim,[address] | | | | | | [facility] | | | | | | [address] | | | | | | [phone].Mimosa. | | | | | | [facility], Gerardo Esquivel MD, | | | [...] [facility] | [address] | [place], [place] | | | [facility] | | [address] | | + + + + + [...] | | | LABORATORY | | | FILIPINO | | | SERVICES, | | | [...] [facility] | [address] | [place] [address] | | | SERVICES, CORE | PARK [...] [facility] | [address] | [place] [address] | | | SERVICES, CORE | PARK [...] [facility] | [address] | [place] [address] | | | SERVICES, CORE | PARK [...] + + + + + | [facility] | [address] | [place] [address] | | | NILO, CORE | [address] | | | [...] [facility] | [address] | [place] [address] | | | SERVICES, CORE | SHAHLA [...] [facility] | [address] | [place] [address] | | | SERVICES, CORE | PARK [...] [facility] | [address] | [place] [address] | | | SERVICES, CORE | SHAHLA [...]
--- OUTSIDE RECORDS SUMMARY | ~2019-09-13 | XMS | Encounter Summary ---
Demographics + + + | Address | [address] | | | [place] [address] | + + + | Home Phone [...] [place] | | | | | [address] | | + + + + + Care Team Providers + +------+ + | Care Assistant Front End Manager Name | Role | Phone | [...] [place] | | | | | | [address] | | | | | | [phone] | | | | | | | | +--------+ + + + + | 09/22/ | Surgery | Surgery | Shu, | RECURRENT VENTRAL | | 2018 | | | MD Devaughn Massey | HERNIA REPAIR AND | | | | | [address] | EXCISION OF MESH | | | | | [place], [place] | | | | | | [address] | | | | | | [phone] | | | | | | | | +--------+ + + + + documented as of this encounter Visit Diagnoses Not on filedocumented in this encounter"
--- OUTSIDE RECORDS SUMMARY | ~2019-09-13 | XMS | Encounter Summary ---
Demographics + + + | Address | [address] | | | [place] [address] | + + + | Home Phone | | + + + | Preferred Language | Unknown | + + + | Marital Status | | + + + | Scientologist Affiliation | CHR | + + + [...] [place] | | | | | [address] | | + + + + + Care Team Providers + +------+ + | Care Contact And Service Clerks Supervisor Name | Role | Phone | [...] | | | or gangrene | | [place] for | | | | | | | Health and | | | | | | | Healing, | | | | | | | [address] | | | | | | | [place], [place] | | | | | | | [address] | | | | | | | Phone: | | | | | | | [phone] | | | | | | | Fax: | | | | | | | [phone] | + +--------+ + + + + [...] | | | [address] | [address] | (Primary Dx) | | | | Mailcode: Center | [place], [place] | | | | | for Health and | [address] | | | | | [facility] [place] [address] | | | | | | [place], [place] | | | | | | [address] | | | | | | [phone] | | | +--------+---------+ + + + [...] of visit: 10:00 to 10:28 (28 minutes iklb-[id number]-lyoh with patient) Surgery: Sleeve Gastrectomy Date of [...] multivitamin & mineral (with iron) supplement, 2/day -3824-0364 mg calcium citrate with vitamin D/day (take in divided doses, not within 2 hour s of multivitamin or iron supplement) -500 mcg/day sublingual B12 supplement (or monthly injections) Continued to reinforce importance of mindful eating. Continue to increase physical activity. Follow up in [address], LD Pager # [phone] signed by Tea Reece RD at 11/25/2018 [...] Rd | | | | | | [place], [place] | | | | | | [address] | | | | | | [phone] | | | | | | | | +--------+ + + + + | 09/22/ | Surgery | Surgery | Shu, | RECURRENT VENTRAL | | 2018 | | | MD Bryson [address] | HERNIA REPAIR AND | | | | | [address] | EXCISION OF MESH | | | | | [place], [place] | | | | | | [address] | | | | | | [phone] | | | | | | | | +--------+ + + + + documented as of this encounter Procedures + +--------+ + + + | Procedure Name | Priori | Date/Time | Associated Diagnosis | Comments | | | ty | | | | + +--------+ + + + | [place] MNT RE-ASSESSMNT | Routin | 11/25/2018 | [...]
--- OUTSIDE RECORDS SUMMARY | ~2019-09-13 | XMS | Encounter Summary ---
Demographics + + + | Address | [address] | | | [place] [address] | + + + | Home Phone | | + + + | Preferred Language | Unknown | + + + | Marital Status | | + + + | Sikhism Affiliation | CHR | + + + [...] [place] | | | | | [address] | | + + + + + Care Team Providers + +------+ + | Care Label Machine Operator Name | Role | Phone [...] | [facility] S[facility] | | | with REGIONAL BUSINESS MANAGER | | obesity | Ganesh Holden MD | [facility] [address] | | | | | (HCC) | [address] | | | | | Procedures | [address] | Mailcode: | | | | | CONSULT TO | Jessica Sepulveda | [place] [facility] | | | | | BARIATRIC | [place], [place] | Health and | | | | | SURGERY | [address] | Healing, | | | | | | Phone: | Building 2 | | | | | | [phone] | [place], [place] | | | | | | Fax: | [address] | | | | | | [phone] | Phone: | | | | | | | [phone] | | | | | | | Fax: | | | | | | | [phone] | + + + + + + [...] | | | [address] | [facility] [place] | adult (HCC) (Primary | | | | Mailcode: Center | [address] | Dx); Essential | | | | for Health and | [phone] | hypertension; | | | | Healing, Building 2 | | Ventral hernia with | | | | [place], [place] | | obstruction and | | | | [address] | | without gangrene | | | | [phone] | | | +--------+---------+ + + + [...] 06/16/2018 9:20 AM PDTPlease visit with our [facility] Director On Air (RD) for instructions about your Bariatric diet, assistance with calorie c ounts, tips and tricks for working with your diet restrictions, and recipes after bariatric surgery. Daily yogurt; even just 1 tablespoon twice a day will provide enough probiotics to optimize digestion. Try to use a high-quality, probiotic-dense yogurt (eg Marielena's, Marcello, Enrico Smith, Life Scientist Dom's Bulgarian Yogurt). Remember to chew your food well, [...] to the healing stomach. There are also mcfp complications of poor wound healing and gastric [...] ASSESSMENT DATE OF VISIT: 06/16/18 HISTORY: Sara BloodJohnAric is a 32 y.o. female who has [...] a 4-5% rate of reoperation over the buttermilk drier operator (i.e. years), as well as other late complications that may or may not require operation or other i ntervention. I stressed that all complication rates and outcomes were estimates only. The nancy berrios appeared to understand, was given an opportunity [...] and may approach 5%. We reviewed the [facility] consent form. We discussed that we did [...] | | | | | [facility] [place] | | | | | | [address] | | | | | | [phone] | | | | | | | | +--------+ + + + + | 09/22/ | Surgery | Surgery | Shu, | RECURRENT VENTRAL | | 2018 | | | MD Bryson [address] | HERNIA REPAIR AND | | | | | [address] | EXCISION OF MESH | | | | | [place], [place] | | | | | | [address] | | | | | | [phone] | | | | | | | [...]
--- OUTSIDE RECORDS SUMMARY | ~2019-09-13 | XMS | Encounter Summary ---
Demographics + + + | Address | [address] | | | [place] [address] | + + + | Home Phone [...] [place] | | | | | [address] | | + + + + + Care Team Providers + +------+ + | Care Hotel Room Attendant Name | Role | Phone | [...] | 2017 | Encounter | Center at [facility] [address] | MD [address] | | | | | [address] | [place], [place] | | | | | Mailcode: Center | [address] | | | | | for Health and | | | | | | [facility] 2 | | | | | | [place], [place] | | | | | | [address] | | | | | | | [...] | Hospital | Adult Acute Care | Suh, | | | 2018 | Encounter | | MD Bryson [address] | | | | | | [address] | | | | | | [facility] [place] | | | | | | [address] | | | | | | [phone] | | | | | | | | +--------+ + + + + | 09/22/ | Surgery | Surgery | Shu, | RECURRENT VENTRAL | | 2018 | | | MD Devaughn Massey | HERNIA REPAIR AND | | | | | [address] | EXCISION OF MESH | | | | | [place], [place] | | | | | | [address] | | | | | | [phone] | | | | | | | | +--------+ + + + + documented as of this encounter Visit Diagnoses Not on filedocumented in this encounter"
--- OUTSIDE RECORDS SUMMARY | ~2019-09-13 | XMS | Encounter Summary ---
Demographics + + + | Address | [address] | | | [place] [address] | + + + | Home Phone [...] [place] | | | | | [address] | | + + + + + Care Team Providers + +------+ + | Care Lockstitch Coat Joiner Name | Role | Phone | + [...] Rd | | | | | | [place] | | | | | | [address] | | | | | | [phone] | | | +--------+ + + + [...] Massey | | | | | | [facility] [address] | | | | | | [place], [place] | | | | | | [address] | | | | | | [phone] | | | | | | | | +--------+ + + + + | 09/22/ | Surgery | Surgery | Shu | RECURRENT VENTRAL | 2018 | | | Bryson, MD [address] | HERNIA REPAIR AND | | | | | [address] | EXCISION OF MESH | | | | | [facility] [place] | | | | | | [address] | | | | | | [phone] | | | | | | | [...] [facility] | [address] | [place] [address] | | | SERVICES, CORE | SHAHLA [...] [facility] | [address] | [place] [address] | | | SERVICES, CORE | [address] [...] [facility] | [address] | [place] [address] | | | SERVICES, CORE | [address] | | | + + + + + documented in this encounter Visit Diagnoses Not on filedocumented in this encounter"
--- OUTSIDE RECORDS SUMMARY | ~2019-09-13 | XMS | Encounter Summary ---
Demographics + + + | Address | [address] | | | [place] [address] | + + + | Home Phone [...] [place] | | | | | [address] | | + + + + + Care Team Providers + +------+ + | Care Postal Clerk Name | Role | Phone | [...] | | | or gangrene | | [place] for | | | | | | | Health and | | | | | | | Healing, | | | | | | | Building 2 | | | | | | | [place], [place] | | | | | | | [address] | | | | | | | Phone: | | | | | | | [phone] | | | | | | | Fax: | | | | | | | [phone] | + +--------+ + + + + Encounter Details +--------+---------+ + + + | Date | Type | Department | Care Team | Description | +--------+---------+ + + + | 01/06/ | Office | Digestive Health | Chetna Alves, RD | Morbid obesity with | | 2018 | Visit | Center at [facility] [address] | [address] | BMI of 40.0-44.9, | | | | [address] | [address] [place], | adult (HCC) (Primary | | | | Mailcode: Center | [place] [address] | Dx); Ventral hernia | | | | for Health and | | with obstruction | | | | Healing, Building 2 | | and without | | | | [place], [place] | | gangrene; Borderline | | | | [address] | | diabetes | | | | [phone] | | | +--------+---------+ + + + [...] of Visit: 3:10 until 4:00 (50 minutes sbky-wo-juuy with patient) SUBJECTIVE: Pt comes in alone from [facility]. Patient viewed online seminar prior to [...] or dr ink water. Has been doing [employer]. Says she is alone a lot. Weight manager of change the past year: trying to lose Previous [...] of toast, bowl of cereal, granola + lithuanian yogu rt Lunch: leftovers (because she is [...] 2 pre-surgery classes. 4. Call or send Dissolve message to dietitian with any questions. Contact information was provided. Follow up with dietitian 1-2 weeks after surgery at first post-op visit. [address] Al[address], [facility], LD [facility] Bariatrics [phone] documented in this enco unter Plan of [...] 2018 | Encounter | | MD Devaughn aMssey | | | | | | [address] | | | | | | [place], [place] | | | | | | [address] | | | | | | [phone] | | | | | | | | +--------+ + + + + | 09/22/ | Surgery | Surgery | Shu, | RECURRENT VENTRAL | | 2018 | | | MD Devaughn Massey | HERNIA REPAIR AND | | | | | [address] | EXCISION OF MESH | | | | | [place], [place] | | | | | | [address] | | | | | | [phone] | | | | | | | | +--------+ + + + + documented as of this encounter Procedures + +--------+ + + + | Procedure Name | Priori | Date/Time | Associated Diagnosis | Comments | | | ty | | | | + +--------+ + + + | CO MNT INITIAL | Routin | 01/07/2018 | [...]
--- OUTSIDE RECORDS SUMMARY | ~2019-09-13 | XMS | Encounter Summary ---
Demographics + + + | Address | [address] | | | [place] [address] | + + + | Home Phone [...] [place] | | | | | [address] | | + + + + + Care Team Providers + +------+ + | Care Top Cager Name | Role | Phone | + +------+ + | Aleshia Martinez PA-C | PCP | | + +------+ + Encounter Details +--------+ + + + + | Date | Type | Department | Care Team | Description | +--------+ + + + + | 09/05/ | Telephone | Digestive Health | Gildardo Downing, | | | 2017 | | Center at [facility] [address] | [address] | | | | | [address] | [facility] [place] | | | | | Mailcode: Center | [address] | | | | | for Health and | [phone] | | | | | [facility], Building 2 | | | | | | [place], [place] | | | | | | [address] | | | | | | [phone] | | | +--------+ + + + [...] Rd | | | | | | [place], [place] | | | | | | [address] | | | | | | [phone] | | | | | | | | +--------+ + + + + | 09/22/ | Surgery | Surgery | Shu, | RECURRENT VENTRAL | | 2019 | | | MD Bryson [address] | HERNIA REPAIR AND | | | | | [address] | EXCISION OF MESH | | | | | [facility] [place] | | | | | | [address] | | | | | | [phone] | | | | | | | | +--------+ + + + + documented as of this encounter Visit Diagnoses Not on filedocumented in this encounter"
--- OUTSIDE RECORDS SUMMARY | ~2019-09-13 | XMS | Encounter Summary ---
Demographics + + + | Address | [address] | | | [place] [address] | + + + | Home Phone [...] [place] | | | | | [address] | | + + + + + Care Team Providers + +------+ + | Care Agency Legal Counsel Name | Role | Phone | + [...] 2019 | Encounter | Center at [facility] [address]66 | [facility] [address] | | | | | [address] | [place], [place] | | | | | Mailcode: Center | [address] | | | | | for Health and | [phone] | | | | | Healing, Building [address] | | | | | | [place], [place] | | | | | | [address] | | | | | | | [...] Rd | | | | | | [place], [place] | | | | | | [address] | | | | | | [phone] | | | | | | | | +--------+ + + + + | 09/22/ | Surgery | Surgery | Shu, | RECURRENT VENTRAL | | 2018 | | | MD Devaughn Massey | HERNIA REPAIR AND | | | | | [address] | EXCISION OF MESH | | | | | [place], [place] | | | | | | [address] | | | | | | [phone] | | | | | | | | +--------+ + + + + documented as of this encounter Visit Diagnoses Not on filedocumented in this encounter"
--- OUTSIDE RECORDS SUMMARY | ~2019-09-13 | XMS | Encounter Summary ---
Demographics + + + | Address | [address] | | | [place] [address] | + + + | Home Phone | | + + + | Preferred Language | Unknown | + + + | Marital Status | | + + + | Samaritan Affiliation | CHR | + + + | Race | White | + + + | Ethnic Group | Not or | + + + Author + + + | Author | [facility] | + + + | Organization | [facility] | + + + | Address | Unknown | + + + | Phone | Unavailable | + + + Support + + + + + | Name | Relationship | Address | Phone | + + + + + | Stewart Corbett | ECON | [address] | | | | | [place] | | | | | [address] | | + + + + + Care Team Providers + +------+ + | Care Tank Truck Driver Name | Role | Phone | + +------+ + | Aleshia Martinez PA-C | PCP | | + +------+ + Encounter Details +--------+ + + + + | Date | Type | Department | Care Team | Description | +--------+ + + + + | 06/23/ | Abstract | Digestive Health | Clinic, Surgery | | | 2017 | | [facility] at [facility] [address] | | | | | | [address] | | | | | | Mailcode: [facility] | | | | | | for Health and | | | | | | Healing, Building 2 | | | | | | [place], [place] | | | | | | [address] | | | | | | [phone] | | | +--------+ + + + [...] Rd | | | | | | [place], [place] | | | | | | [address] | | | | | | [phone] | | | | | | | | +--------+ + + + + | 09/22/ | Surgery | Surgery | [place], | RECURRENT VENTRAL | | 2019 | | | MD Bryson [address] | HERNIA REPAIR AND | | | | | [address] | EXCISION OF MESH | | | | | [place], [place] | | | | | | [address] | | | | | | [phone] | | | | | | | | +--------+ + + + + documented as of this encounter Visit Diagnoses Not on filedocumented in this encounter"
--- OUTSIDE RECORDS SUMMARY | ~2019-09-13 | XMS | Encounter Summary ---
Demographics + + + | Address | [address] | | | [place] [address] | + + + | Home Phone [...] [place] | | | | | [address] | | + + + + + Care Team Providers + +------+ + | Care Rod Hanger Name | Role | Phone | + +------+ + | Aleshia Martinez PA-C | PCP | | + +------+ + Encounter Details +--------+ + + + + | Date | Type | Department | Care Team | Description | +--------+ + + + + | 08/12/ | MyChart | Digestive Health | Clinic, Surgery | | | 2018 | Encounter | Center at [facility] [address] | | | | | | [address] | | | | | | Mailcode: Center | | | | | | for Health and | | | | | | Healing, Building [address] | | | | | | [place], [place] | | | | | | [address] | | | | | | [phone] | | | +--------+ + + + [...] Rd | | | | | | [place], [place] | | | | | | [address] | | | | | | [phone] | | | | | | | | +--------+ + + + + | 09/22/ | Surgery | Surgery | Shu, | RECURRENT VENTRAL | | 2018 | | | MD Bryson [address] | HERNIA REPAIR AND | | | | | [address] | EXCISION OF MESH | | | | | [place], [place] | | | | | | [address] | | | | | | [phone] | | | | | | | | +--------+ + + + + documented as of this encounter Visit Diagnoses Not on filedocumented in this encounter"
--- OUTSIDE RECORDS SUMMARY | ~2019-09-13 | XMS | Encounter Summary ---
Demographics + + + | Address | [address] | | | [place] [address] | + + + | Home Phone | | + + + | Preferred Language | Unknown | + + + | Marital Status | | + + + | Pentecostalism Affiliation | CHR | + + + [...] [place] | | | | | [address] | | + + + + + Care Team Providers + +------+ + | Care Recreation Professor Name | Role | Phone | [...] | | | Procedures | [place], | [address] | | | | | PHYSICAL | [place] | for Health | | | | | THERAPY | [address] | and Healing, | | | | | REFERRAL | Phone: | Building 1, | | | | | | | [address] Floor | | | | | | Fax: | [place], [place] | | | | | | [phone] | [address] | | | | | | | Phone: | | | | | | | [phone] | | | | | | | Fax: | | | | | | | [phone] | +--------+--------+ + + + + Encounter [...] BMI of 40.0-44.9, | | | | [facility] | [address] [place], | adult (HCC) (Primary | | | | [address] | [place] [address] | Dx); Essential | | | | Mailcode: CH3P | [phone] | hypertension; | | | | [facility] | | Ventral hernia with | | | | and Healing, | | obstruction and | | | | [address] | | without gangrene; | | | | Floor [place], [place] | | Physical | | | | [address] | | deconditioning | | | | [phone] | | | +--------+---------+ + + + [...] Product Type: Workers Com p / Non-Medicare [facility] PHYSICAL TH[facility] EVALUATION Past Medical History: Diagnosis [...] pain is not a significant clinical problem [facility]ALU[facility] History of Presenting Problem: [...] to work due to pain/injury. lives with [facility]. Living situation/environment is limiting function: no Equipment [...] Moderate - Moderate complexity Complexity: Moderate - [address] The patient requires services that can be [...] status. [facility] 1ST FLOOR Scheduled Appointment time: 1:00 PM [...] 1 Referral information Authorizing Provider: MARY ADAMS [[id number]] Onset/Referral Date: 10/27/17 Primary/Referral Diagnosis: E66.01, Z68.41 Morbid obesity with BMI of 40.0-44.9, adult (H CC) I10 Essential hypertension K43.6 Ventral hernia with obstruction and without gangrene R53.81 Physical deconditioning Start of care: 01/06/2018 Service period from: 01/06/2018 to: - Next progress report 02/05/2018 Insurance: Payor: WORKERS COMP OTHER / Plan: WORKERS COMP OTHER / Product Type: Paxfire p / G-code:- code not needed. Number [...] Rd | | | | | | [place], [place] | | | | | | [address] | | | | | | [phone] | | | | | | | | +--------+ + + + + | 09/22/ | Surgery | Surgery | Shu, | RECURRENT VENTRAL | | 2018 | | | MD Devaughn Massey | HERNIA REPAIR AND | | | | | [address] | EXCISION OF MESH | | | | | [place], [place] | | | | | | [address] | | | | | | [phone] | | | | | | | | +--------+ + + + + documented as of this encounter Procedures + +--------+ + + + | Procedure Name | Priori | Date/Time | Associated Diagnosis | Comments | | | ty | | | | + +--------+ + + + | ME THERAPEUTIC | Routin | 01/10/2018 | Morbid [...]
--- OUTSIDE RECORDS SUMMARY | ~2019-09-13 | XMS | Encounter Summary ---
Demographics + + + | Address | [address] | | | [place] [address] | + + + | Home Phone [...] [place] | | | | | [address] | | + + + + + Care Team Providers + +------+ + | Care Track Helper Name | Role | Phone | [...] | 2018 | on | Center at [facility] [address] | | | | | | [address] | | | | | | Mailcode: Center | | | | | | for Health and | | | | | | Healing, Building 2 | | | | | | [place], [place] | | | | | | [address] | | | | | | [phone] | | | +--------+ + + + [...] Rd | | | | | | [place], [place] | | | | | | [address] | | | | | | [phone] | | | | | | | | +--------+ + + + + | 09/22/ | Surgery | Surgery | Shu, | RECURRENT VENTRAL | | 2019 | | | MD Bryson [address] | HERNIA REPAIR AND | | | | | [address] | EXCISION OF MESH | | | | | [place], [place] | | | | | | [address] | | | | | | [phone] | | | | | | | | +--------+ + + + + documented as of this encounter Visit Diagnoses Not on filedocumented in this encounter"
--- OUTSIDE RECORDS SUMMARY | ~2019-09-13 | XMS | Encounter Summary ---
Demographics + + + | Address | [address] | | | [place] [address] | + + + | Home Phone [...] [place] | | | | | [address] | | + + + + + Care Team Providers + +------+ + | Care Refrigeration Specialist Name | Role | Phone | [...] Pharmacy | | | | | | [address] | | | | | | [place], | | | | | | [place] [address] | | | | | | [phone] | | | +--------+ + + + [...] Rd | | | | | | [place], [place] | | | | | | [address] | | | | | | [phone] | | | | | | | | +--------+ + + + + | 09/22/ | Surgery | Surgery | Shu, | RECURRENT VENTRAL | | 2018 | | | MD Bryson [address] | HERNIA REPAIR AND | | | | | [address] | EXCISION OF MESH | | | | | [place], [place] | | | | | | [address] | | | | | | [phone] | | | | | | | | +--------+ + + + + documented as of this encounter Visit Diagnoses Not on filedocumented in this encounter"
--- OUTSIDE RECORDS SUMMARY | ~2019-09-13 | XMS | Encounter Summary ---
Demographics + + + | Address | [address] | | | [place] [address] | + + + | Home Phone [...] [place] | | | | | [address] | | + + + + + Care Team Providers + +------+ + | Care Airport Location Manager Name | Role | Phone | [...] at [facility] [address] | ACNP [address] | everywhere | | | | [address] | [place], [place] | encounter) | | | | Mailcode: Center | [address] | | | | | for Health and | [phone] | | | | | [facility], [facility] 2 | | | | | | [place], [place] | | | | | | [address] | | | | | | [phone] | | | +--------+ + + + [...] Rd | | | | | | [place], [place] | | | | | | [address] | | | | | | [phone] | | | | | | | | +--------+ + + + + | 09/22/ | Surgery | Surgery | Shu, | RECURRENT VENTRAL | | 2018 | | | MD Devaughn Massey | HERNIA REPAIR AND | | | | | [address] | EXCISION OF MESH | | | | | [place], [place] | | | | | | [address] | | | | | | [phone] | | | | | | | | +--------+ + + + + documented as of this encounter Visit Diagnoses Not on filedocumented in this encounter"
--- OUTSIDE RECORDS SUMMARY | ~2019-09-13 | XMS | Encounter Summary ---
Demographics + + + | Address | [address] | | | [place] [address] | + + + | Home Phone [...] [place] | | | | | [address] | | + + + + + Care Team Providers + +------+ + | Care Certified Registered Nurse Anesthetist Name | Role | Phone | + [...] | | | 2018 | Event | [facility] | , [place] [address] | | | | | Admitting Desk | [address] | | | | | Located on the | [place], [place] | | | | | [facility] [address] [facility] | [address] | | | | | [address] | [phone] | | | | | [place], [place] | | | | | | [address] | | | +--------+ + + + [...] [place] | | | | | | [address] | | | | | | [phone] | | | | | | | | +--------+ + + + + | 09/22/ | Surgery | Surgery | Shu, | RECURRENT VENTRAL | | 2018 | | | MD Devaughn Massey | HERNIA REPAIR AND | | | | | [address] | EXCISION OF MESH | | | | | [place] | | | | | | [address] | | | | | | [phone] | | | | | | | [...] by Resident HEMA, | | | NI Silva EBM with ramp. LTA used. Tube easily passed [...] 12:38 | | | | | Starting Wed08/31/18 at 1238, | | PM PST | [...]
--- OUTSIDE RECORDS SUMMARY | ~2019-09-13 | XMS | Encounter Summary ---
Demographics + + + | Address | [address] | | | [place] [address] | + + + | Home Phone | | + + + | Preferred Language | Unknown | + + + | Marital Status | | + + + | Confucianist Affiliation | CHR | + + + | Race | White | + + + | Ethnic Group | Not or | + + + Author + + + | Author | [facility] | + + + | Organization | [facility] | + + + | Address | Unknown | + + + | Phone | Unavailable | + + + Support + + + + + | Name | Relationship | Address | Phone | + + + + + | Stewart Corbett | ECON | [address] | | | | | [place] | | | | | [address] | | + + + + + Care Team Providers + +------+ + | Care Civil Defense Director Name | Role | Phone | [...] | Center at [facility] [address]85 | MD [address] | | | | | [address] | [facility] [place] | | | | | Mailcode: [place] | [address] | | | | | for Health and | [phone] | | | | | [facility], [facility] 2 | | | | | | [place], [place] | | | | | | [address] | | | | | | [phone] | | | +--------+ + + + [...] Rd | | | | | | [place], [place] | | | | | | [address] | | | | | | [phone] | | | | | | | | +--------+ + + + + | 09/22/ | Surgery | Surgery | Shu, | RECURRENT VENTRAL | | 2018 | | | MD Bryson [address] | HERNIA REPAIR AND | | | | | [address] | EXCISION OF MESH | | | | | [place], [place] | | | | | | [address] | | | | | | [phone] | | | | | | | | +--------+ + + + + documented as of this encounter Visit Diagnoses Not on filedocumented in this encounter"
--- OUTSIDE RECORDS SUMMARY | ~2019-09-13 | XMS | Encounter Summary ---
Demographics + + + | Address | [address] | | | [place] [address] | + + + | Home Phone [...] [place] | | | | | [address] | | + + + + + Care Team Providers + +------+ + | Care Flame Gouger Name | Role | Phone | + +------+ + | Aleshia Martinez PA-C | PCP | | + +------+ + Encounter Details +--------+ + + + + | Date | Type | Department | Care Team | Description | +--------+ + + + + | 07/12/ | Abstract | Digestive Health | Clinic, Surgery | | | 2017 | | [employer] [facility] [address] | | | | | | [address] | | | | | | Mailcode: [employer] | | | | | | for Health and | | | | | | Healing, Building [address] | | | | | | [place], [place] | | | | | | [address] | | | | | | [phone] | | | +--------+ + + + [...] Rd | | | | | | [place], [place] | | | | | | [address] | | | | | | [phone] | | | | | | | | +--------+ + + + + | 09/22/ | Surgery | Surgery | [place], | RECURRENT VENTRAL | | 2019 | | | MD Bryson [address] | HERNIA REPAIR AND | | | | | [address] | EXCISION OF MESH | | | | | [place], [place] | | | | | | [address] | | | | | | [phone] | | | | | | | | +--------+ + + + + documented as of this encounter Visit Diagnoses Not on filedocumented in this encounter"
--- OUTSIDE RECORDS SUMMARY | ~2019-09-13 | XMS | Encounter Summary ---
Demographics + + + | Address | [address] | | | [place] [address] | + + + | Home Phone [...] [place] | | | | | [address] | | + + + + + Care Team Providers + +------+ + | Care Pass Worker Name | Role | Phone | [...] | Center at [facility] [address] | MD [address] | (05/10/15 CT A/P) | | | | [address] | [place], [place] | | | | | Mailcode: [place] | [address] | | | | | for Health and | [phone] | | | | | [facility] 2 | | | | | | [place], [place] | | | | | | [address] | | | | | | [phone] | | | +--------+ + + + [...] Rd | | | | | | [place], [place] | | | | | | [address] | | | | | | [phone] | | | | | | | | +--------+ + + + + | 09/22/ | Surgery | Surgery | Shu, | RECURRENT VENTRAL | | 2018 | | | MD Devaughn Massey | HERNIA REPAIR AND | | | | | [address] | EXCISION OF MESH | | | | | [place], [place] | | | | | | [address] | | | | | | [phone] | | | | | | | | +--------+ + + + + documented as of this encounter Visit Diagnoses Not on filedocumented in this encounter"
--- OUTSIDE RECORDS SUMMARY | ~2019-09-13 | XMS | Encounter Summary ---
Demographics + + + | Address | [address] | | | [place] [address] | + + + | Home Phone [...] [place] | | | | | [address] | | + + + + + Care Team Providers + +------+ + | Care Billiard Player Name | Role | Phone | + [...] 2017 | Encounter | Center at [facility] [address] | MD [address] | Acid reflux | | | | [address] | [place], [place] | | | | | Mailcode: Center | [address] | | | | | for Health and | | | | | | [facility] 2 | | | | | | [place], [place] | | | | | | [address] | | | | | | | [...] | | | | | | [facility] [place] | | | | | | [address] | | | | | | [phone] | | | | | | | | +--------+ + + + + | 09/22/ | Surgery | Surgery | Shu, | RECURRENT VENTRAL | | 2018 | | | MD Devaughn Massey | HERNIA REPAIR AND | | | | | [address] | EXCISION OF MESH | | | | | [place], [place] | | | | | | [address] | | | | | | [phone] | | | | | | | | +--------+ + + + + documented as of this encounter Visit Diagnoses Not on filedocumented in this encounter"
--- OUTSIDE RECORDS SUMMARY | ~2019-09-13 | XMS | Encounter Summary ---
Demographics + + + | Address | [address] | | | [place] [address] | + + + | Home Phone [...] [place] | | | | | [address] | | + + + + + Care Team Providers + +------+ + | Care Sprinkler Worker Name | Role | Phone | + +------+ + | Aleshia Martinez PA-C | PCP | | + +------+ + Encounter Details +--------+ + + + + | Date | Type | Department | Care Team | Description | +--------+ + + + + | 01/28/ | Abstract | Digestive Health | Clinic, Surgery | | | 2017 | | [place] at [facility] [address] | | | | | | [address] | | | | | | Mailcode: [place] | | | | | | for Health and | | | | | | Healing, Building 2 | | | | | | [place], [place] | | | | | | [address] | | | | | | [phone] | | | +--------+ + + + [...] Rd | | | | | | [place], [place] | | | | | | [address] | | | | | | [phone] | | | | | | | | +--------+ + + + + | 09/22/ | Surgery | Surgery | Maidens, | RECURRENT VENTRAL | | 2019 | | | MD Bryson [address] | HERNIA REPAIR AND | | | | | [address] | EXCISION OF MESH | | | | | [place], [place] | | | | | | [address] | | | | | | [phone] | | | | | | | | +--------+ + + + + documented as of this encounter Visit Diagnoses Not on filedocumented in this encounter"
--- OUTSIDE RECORDS SUMMARY | ~2019-09-13 | XMS | Encounter Summary ---
Demographics + + + | Address | [address] | | | [place] [address] | + + + | Home Phone [...] [place] | | | | | [address] | | + + + + + Care Team Providers + +------+ + | Care Staff Midwife Name | Role | Phone | + [...] | | | Procedures | [place], | [address] | | | | | PHYSICAL | [place] | for Health | | | | | THERAPY | [address] | and Healing, | | | | | REFERRAL | Phone: | Building 1, | | | | | | | [address] Floor | | | | | | Fax: | [place], [place] | | | | | | [phone] | [address] | | | | | | | Phone: | | | | | | | [phone] | | | | | | | Fax: | | | | | | | [phone] | +--------+--------+ + + + + Encounter Details +--------+ + + + + | Date | Type | Department | Care Team | Description | +--------+ + + + + | 10/27/ | Relay Telegrapher | Digestive Health | Marta Simmons, | Morbid obesity (HCC) | | 2018 | | Center at [facility] [address] | AGACNP [address] | (Primary Dx) | | | | [address] | Ave [place], [place] | | | | | Mailcode: Center | [address] | | | | | for Health and | | | | | | Healing, Building 2 | | | | | | [place], [place] | | | | | | [address] | | | | | | [phone] | | | +--------+ + + + [...] Rd | | | | | | [place], [place] | | | | | | [address] | | | | | | [phone] | | | | | | | | +--------+ + + + + | 09/22/ | Surgery | Surgery | Shu, | RECURRENT VENTRAL | | 2018 | | | MD Bry[address] | HERNIA REPAIR AND | | | | | [address] | EXCISION OF MESH | | | | | [place], [place] | | | | | | [address] | | | | | | [phone] | | | | | | | | +--------+ + + + + documented as of this encounter Visit Diagnoses + + | Diagnosis | + + | Morbid obesity (HCC) - Primary Morbid obesity | + + documented in this encounter"
--- OUTSIDE RECORDS SUMMARY | ~2019-09-13 | XMS | Encounter Summary ---
Demographics + + + | Address | [address] | | | [place] [address] | + + + | Home Phone [...] [place] | | | | | [address] | | + + + + + Care Team Providers + +------+ + | Care Scouring Pads Supervisor Name | Role | Phone | [...] + + | 08/31/ | Hospital | [facility] [address] | Gildardo Downing, | | | 2018 - | Encounter | [address] | [address] | | | | | [place], [place] | [place], [place] | | | 09/02/ | | [address] | [address] | | | 2017 | | [phone] | [phone] | | | | | | | [...] might be differen t from the original. [facility] RED SURGERY INPATIENT DISCHARGE SUMMARY Author: GAUTAM [...] the PACU before being transferred to the borwn f or observation. Postoperatively, she was placed [...] We will have her follow up with [facility] Bariatric Nurse Practitioner in 1 week [...] or Kefir, [place] Yogurt, and Chioban i Indonesian Yogurt are common brands with beneficial probiotics. [...] are available over the counter at most [facility] [employer] stores. Nausea/Vomiting/Difficulty Swallowing Nausea/Vomiting/Difficulty swallowing: Could be [...] hours per your instructions. Some medications, like [place], have Tylenol in it. Make sure you [...] (PCP) as this clinic does not provide [facility] chronic pain management services. When to [...] hours by calling the surgery office at [phone]. - After hours, weekends and holidays, you may call the hospital pipeline operator at [phone] an d have the manager generation Red Surgery Team paged. Destination Home Condition [...] Acute Care Why: follow up with bariatric HEEL MOLDER Contact information [address] [facility] [address] Future Appointments Provider Department Dept Phone Center 09/07/2018 10:00 AM Chetna Alves [facility] at [facility] 6th Floor [phone] KATIA D AND NUT 09/07/2018 10:50 AM Emily Martinez [facility] at [facility] 6th Floor [phone] D ig Health 09/29/2018 10:30 AM Tea [facility] at [facility] 6th Floor [phone] F OOD AND NUT 09/29/2018 11:20 AM Gildardo Downing [facility] at [facility] 6th Floor [phone] Di g Health 11/25/2018 10:00 AM [facility] at [facility] 6th Floor [phone] FO OD AND NUT 11/25/2018 10:50 AM Shanon Etienne [facility] at [facility] 6th Floor [phone] Dig [facility] Discharging Physician: GAUTAM Leblanc Attending Physician: Gildardo Downing MD [facility] Red Surgery Pager# [phone] 10:42 AM 09/02/2018 documented in th is [...] if this helps. Gildardo Downing MD, FACS, [facility] Division of Bariatric Surgery [facility] | [address] | [place] | [address] | Ludwin Tellez MD - 08/31/2018 8:54 [...] Ludwin Tellez MD General Surgery, PGY1 Pager: [phone] documented in this en counter Plan of [...] Rd | | | | | | [place], [place] | | | | | | [address] | | | | | | [phone] | | | | | | | | +--------+ + + + + | 09/22/ | Surgery | Surgery | Joseph Ireland RECURRENT VENTRAL | | 2018 | | | MD Bry[address] | HERNIA REPAIR AND | | | | | [address] | EXCISION OF MESH | | | | | [place], [place] | | | | | | [address] | | | | | | [phone] | | | | | | | [...] GASTRECTOMY | ve | 12:25 PM | ([facility]) | | | | Surgic | [...] DEPT OF | [address] | [place], [place] | | | CARDIOLOGY | [address] | [address] | | + + + + + [...] ABDI | [address] | [place], [place] | | | CHARITO POINT OF CARE | [address] | [address] | | | TESTS | | | [...] MARQUAM | [address] | [place], [place] | | | [facility] | [address] | [address] | | | TESTS | | | [...] SURGEON: Gildardo Downing MD. | | | NURSE ANESTHESIA PROGRAM DIRECTOR: Jamie Gonzales MD R6. ANESTHESIA: Ke Strong [...] | | | Gildardo Downing MD, FACS, [facility] Bariatric Surgery | | | | | [...] SURGEON: Gildardo Downing MD. | | | NURSE ANESTHESIA PROGRAM DIRECTOR: Jamie Gonzales MD R6. ANESTHESIA: Ke Strong [...] level of the left | | | matrin. The vessels were then divided distally to [...] | | | Gildardo Downing MD, FACS, [facility] Bariatric Surgery | | | | | [...] MARQUAM | [address] | [place], [place] | | | CHARITO [facility] | [address] | [address] | | | TESTS | | | [...] | | | | First dose on [facility] 09/01/18 at 0900 | | | | [...] | | | | | dose on [facility] 09/01/18 at 0900 | | | | | | + +-------+ +--------+---+---+ +---+---+ | | | +---+---+ documented in this encounter
--- OUTSIDE RECORDS SUMMARY | ~2019-09-13 | XMS | Encounter Summary ---
Demographics + + + | Address | [address] | | | [place] [address] | + + + | Home Phone [...] [place] | | | | | [address] | | + + + + + Care Team Providers + +------+ + | Care Broomcorn Scraper Name | Role | Phone | + [...] [place] | | | | | | [address] | | | | | | [phone] | | | | | | | | +--------+ + + + + | 09/22/ | Surgery | Surgery | Shu, | RECURRENT VENTRAL | | 2018 | | | MD Devaughn Massey | HERNIA REPAIR AND | | | | | [address] | EXCISION OF MESH | | | | | [place] | | | | | | [address] | | | | | | [phone] | | | | | | | | +--------+ + + + + documented as of this encounter Visit Diagnoses Not on filedocumented in this encounter"
--- OUTSIDE RECORDS SUMMARY | ~2019-09-13 | XMS | Encounter Summary ---
Demographics + + + | Address | [address] | | | [place] [address] | + + + | Home Phone [...] [place] | | | | | [address] | | + + + + + Care Team Providers + +------+ + | Care Beta Tester Name | Role | Phone | + +------+ + | No Pcp Per Patient | PCP | Unavailable | + +------+ + Encounter Details +--------+ + + + + | Date | Type | Department | Care Team | Description | +--------+ + + + + | 10/22/ | Abstract | Digestive Health | Clinic, Surgery | | | 2016 | | [place] at [facility] [address] | | | | | | [address] | | | | | | Mailcode: [place] | | | | | | [facility] Health and | | | | | | Healing, Building 2 | | | | | | [place], [place] | | | | | | [address] | | | | | | [phone] | | | +--------+ + + + [...] Rd | | | | | | [place], [place] | | | | | | [address] | | | | | | [phone] | | | | | | | | +--------+ + + + + | 09/22/ | Surgery | Surgery | Shu, | RECURRENT VENTRAL | | 2019 | | | MD [address] | HERNIA REPAIR AND | | | | | [address] | EXCISION OF MESH | | | | | [place], [place] | | | | | | [address] | | | | | | [phone] | | | | | | | | +--------+ + + + + documented as of this encounter Visit Diagnoses Not on filedocumented in this encounter"
--- OUTSIDE RECORDS SUMMARY | ~2019-09-13 | XMS | Encounter Summary ---
Demographics + + + | Address | [address] | | | [place] [address] | + + + | Home Phone [...] [place] | | | | | [address] | | + + + + + Care Team Providers + +------+ + | Care Asw/Asuw Tactical Air Controller Name | Role | Phone | + +------+ + | Aleshia Martinez PA-C | PCP | | + +------+ + Encounter Details +--------+ + + + + | Date | Type | Department | Care Team | Description | +--------+ + + + + | 01/24/ | MyChart | Digestive Health | Yumiko Clarke, | RE: ER visit | | 2018 | Encounter | [facility] at [facility] [address] | ACNP [address] | | | | | [address] | Ave [place], [place] | | | | | Mailcode: Center | [address] | | | | | for Health and | [phone] | | | | | Healing, Building [address] | | | | | | [place], [place] | | | | | | [address] | | | | | | [phone] | | | +--------+ + + + [...] Rd | | | | | | [place], [place] | | | | | | [address] | | | | | | [phone] | | | | | | | | +--------+ + + + + | 09/22/ | Surgery | Surgery | Shu, | RECURRENT VENTRAL | | 2018 | | | MD [address] | HERNIA REPAIR AND | | | | | [address] | EXCISION OF MESH | | | | | [place] | | | | | | [address] | | | | | | [phone] | | | | | | | | +--------+ + + + + documented as of this encounter Visit Diagnoses Not on filedocumented in this encounter"
--- OUTSIDE RECORDS SUMMARY | ~2019-09-13 | XMS | Encounter Summary ---
Demographics + + + | Address | [address] | | | [place] [address] | + + + | Home Phone [...] [place] | | | | | [address] | | + + + + + Care Team Providers + +------+ + | Care Sizer Hand Name | Role | Phone | + +------+ + | No Pcp Per Patient | PCP | Unavailable | + +------+ + Encounter Details +--------+ + + + + | Date | Type | Department | Care Team | Description | +--------+ + + + + | 08/28/ | Anesthesia | Preoperative | Lety Dillon, | | | 2019 | Event | Medicine Clinic at | [place], [place] | | | | | [facility] | [address] | | | | | [address] | | | | | | Mail Code: OC8PM | | | | | | [facility] | | | | | | and Healing, | | | | | | Building 2 | | | | | | [place], [place] | | | | | | [address] | | | | | | [phone] | | | +--------+ + + + + Anesthesia Record + + + + + | Procedure Name | Responsible | Anesthesia Start | Anesthesia Stop Time | | | Anesthesiologist | Time | | + + + + + | PREANESTHETIC | | | | | EVALUATION | | | | + + + + + + + | No events on file. | + + +------+ | Meds | +------+ + + + No medications | on file. | + + + + + | No agents on file. | + + + + | No blood administrations on file. | + + + + | No LDAs on file. | + + documented in this encounter Social [...] Rd | | | | | | [place], [place] | | | | | | [address] | | | | | | [phone] | | | | | | | | +--------+ + + + + | 09/22/ | Surgery | Surgery | Shu, | RECURRENT VENTRAL | | 2018 | | | MD Devaughn Massey | HERNIA REPAIR AND | | | | | [address] | EXCISION OF MESH | | | | | [place], [place] | | | | | | [address] | | | | | | [phone] | | | | | | | | +--------+ + + + + documented as of this encounter Visit Diagnoses Not on filedocumented in this encounter"
--- OUTSIDE RECORDS SUMMARY | ~2019-09-13 | XMS | Encounter Summary ---
Demographics + + + | Address | [address] | | | [place] [address] | + + + | Home Phone [...] [place] | | | | | [address] | | + + + + + Care Team Providers + +------+ + | Care Smoking Pipe Driller And Threader Name | Role | Phone | + [...] | [address] | Ave [facility] [place] | (Bariatric | | | | Mailcode: Center | [address] | questionnaire) | | | | for Health and | [phone] | | | | | [facility] 2 | | | | | | [place], [place] | | | | | | [address] | | | | | | [phone] | | | +--------+ + + + [...] Rd | | | | | | [place], [place] | | | | | | [address] | | | | | | [phone] | | | | | | | | +--------+ + + + + | 09/22/ | Surgery | Surgery | Shu, | RECURRENT VENTRAL | | 2018 | | | MD Devaughn Massey | HERNIA REPAIR AND | | | | | [address] | EXCISION OF MESH | | | | | [place], [place] | | | | | | [address] | | | | | | [phone] | | | | | | | | +--------+ + + + + documented as of this encounter Visit Diagnoses Not on filedocumented in this encounter"
--- OUTSIDE RECORDS SUMMARY | ~2019-09-13 | XMS | Encounter Summary ---
Demographics + + + | Address | [address] | | | [place] [address] | + + + | Home Phone [...] [place] | | | | | [address] | | + + + + + Care Team Providers + +------+ + | Care Computer Programmer Chief Name | Role | Phone | [...] | | | | | 40.0-44.9, | [place], [place] | [facility] Center | | | | | adult (HCC) | [address] | for Health | | | | | Borderline | Phone: | and Healing, | | | | | diabetes | [phone] | Building 1, | | | | | Essential | Fax: | 15th Floor | | | | | hypertension | [phone] | [place], [place] | | | | | Mild | | [address] | | | | | intermittent | | Phone: | | | | | asthma | | [phone] | | | | | without | | Fax: | | | | | complication | | [phone] | | | | | Anxiety | [...] | [facility] | | | with APPLICATIONS PROJECT MANAGER | | obesity | Ganesh Holden MD | [facility] [address] | | | | | ([facility]) | [address] | | | | | Procedures | [address] | Mailcode: | | | | | CONSULT TO | Shahla Sepulveda | [facility] | | | | | BARIATRIC | [place], [place] | [facility] and | | | | | SURGERY | [address] | Healing, | | | | | | Phone: | Building 2 | | | | | | [phone] | [place], [place] | | | | | | Fax: | [address] | | | | | | [phone] | Phone: | | | | | | | [phone] | | | | | | | Fax: | | | | | | | [phone] | + + + + + + + Encounter Details +--------+---------+ + + + | Date | Type | Department | Care Team | Description | +--------+---------+ + + + | 01/06/ | Office | Digestive Health | Yumiko Clarke, | Morbid obesity with | | 2017 | Visit | Center at [facility] [address] | [facility] [address] | BMI of 40.0-44.9, | | | | [address] | Ave [place], [place] | adult (HCC) (Primary | | | | Mailcode: Center | [address] | Dx); Borderline | | | | for Health and | [phone] | diabetes; Essential | | | | Healing, Building 2 | | hypertension; Mild | | | | [place], [place] | | intermittent asthma | | | | [address] | | without | | | | [phone] | | complication; | | | | [...] diabetes 2. HTN takes atenolol, BP elevated aefpw=133/95 3. Ventral hernia with MESH 4. Hx [...] to your private appointme nt with the junk removal specialist. These classes will be scheduled apporoximately [...] Psychological Evaluation: If your referral is at [facility], The Pain Management Office will call [...] then schedule with the surgeon. Yumiko APPIAH SURVEY DATA TECHNICIAN Bariatric Surgery Nurse Practitioner [facility] | [address] | [place], [place] | [address] | Potential Contraindications to Bariatric Surgery Age [...] other providers does not guarantee that the [facility] Bariatric Surger y program will deem you a surgical candidate. documented in this encounter Progress Notes Yumiko Clarke ACNP - 01/06/2018 2:05 PM PDTFormatting of this note might be different fr om the original. BARIATRIC INITIAL VISIT Provider: Yumiko APPIAH SURVEY DATA TECHNICIAN Referring Provider: Aleshia Martinez PA-C Reason for [...] doesn't like side effects Transthoracic ECHO: no Confucianism or cultural reason you would refuse blood [...] history of diabetes, polyuria, polyphagia or polydip nisah. No history of gout. Reports borderline DM [...] diabetes 2. HTN takes atenolol, BP elevated phnvo=086/95 3. Ventral hernia with MESH 4. Hx [...] Plan: The following has been provided to Saar BloodJohnAric This is a preliminary visit for [...] to your private appointme nt with the junk removal specialist. These classes will be scheduled apporoximately [...] Psychological Evaluation: If your referral is at [facility], The Pain Management Office will call [...] with the surgeon. Yumiko Clarke DNP ACNP SURVEY DATA TECHNICIAN Bariatric Surgery Nurse Practitioner [facility] | [address] | [place], [place] | [address] | Potential Contraindications to Bariatric Surgery Age [...] other providers does not guarantee that the [facility] Bariatric Surger y program will deem [...] [place] | | | | | | [address] | | | | | | [phone] | | | | | | | | +--------+ + + + + | 09/22/ | Surgery | Surgery | Shu, | RECURRENT VENTRAL | | 2018 | | | MD Devaughn Massey | HERNIA REPAIR AND | | | | | [address] | EXCISION OF MESH | | | | | [place], [place] | | | | | | [address] | | | | | | [phone] | | | | | | | [...] | + + + + + | [facility] | [address] | [place] [address] | | | SERVICES, CORE | SHAHLA [...] | [facility] | | considered for monitoring mcfp glycemic control in patients with: | LABORATORY [...] | + + + + + | [facility] | [address] [address] | [place] [address] | | | SERVICES, SPECIAL | SHAHLA [...] | | | | | determined by [facility] | | | | | | Laboratories. See | | | | | | Compliance Statement B: | | | | | | [employer]/CSPerformed | | | | | | by [employer],[address] | | | | | | [facility],[place] | | | | | | [address] | | | | | | [phone].[employer] | | | | | | FemasysGerardo MD, | | | | | | [...] [facility] | [address] | [place], [place] | | | [facility] | | [address] | | + + + + + [...] | | | LABORATORY | | | BURMESE | | | SERVICES, | | | [...] | + + + + + | [facility] | [address] | [place] [address] | | | SERVICES, CORE | SHAHLA [...] [facility] | [address] | [place] [address] | | | SERVICES, CORE | [address] [...] [facility] | [address] | [place] [address] | | | SERVICES, CORE | SHAHLA [...] [facility] | [address] | [place] [address] | | | SERVICES, CORE | PARK [...] [facility] | [address] | [place] [address] | | | NILO, KUSH | SHAHLA [...] | + + + + + | [facility] | [address] | [place] [address] | | | SERVICES, CORE | SHAHLA [...] | + + + + + | [facility] | [address] | [place] [address] | | | KUSH CORCORAN | SHAHLA [...] DEPT OF | [address] | [place], [place] | | | CARDIOLOGY | [address] | [address] | | + + + + + [...]
--- OUTSIDE RECORDS SUMMARY | ~2019-09-13 | XMS | Encounter Summary ---
Demographics + + + | Address | [address] | | | [place] [address] | + + + | Home Phone [...] [place] | | | | | [address] | | + + + + + Care Team Providers + +------+ + | Care Shutdown Coordinator Name | Role | Phone | + +------+ + | Aleshia Martinez PA-C | PCP | | + +------+ + Encounter Details +--------+ + + + + | Date | Type | Department | Care Team | Description | +--------+ + + + + | 04/13/ | Abstract | Digestive Health | Clinic, Surgery | | | 2019 | | [place] at [facility] [address] | | | | | | [address] | | | | | | Mailcode: [place] | | | | | | for Health and | | | | | | Healing, Building [address] | | | | | | [place], [place] | | | | | | [address] | | | | | | [phone] | | | +--------+ + + + [...] Rd | | | | | | [place], [place] | | | | | | [address] | | | | | | [phone] | | | | | | | | +--------+ + + + + | 09/22/ | Surgery | Surgery | Shu, | RECURRENT VENTRAL | | 2019 | | | MD Bryson [address] | HERNIA REPAIR AND | | | | | [address] | EXCISION OF MESH | | | | | [place], [place] | | | | | | [address] | | | | | | [phone] | | | | | | | | +--------+ + + + + documented as of this encounter Visit Diagnoses Not on filedocumented in this encounter"
--- OUTSIDE RECORDS SUMMARY | ~2019-09-13 | XMS | Encounter Summary ---
Demographics + + + | Address | [address] | | | [place] [address] | + + + | Home Phone [...] [place] | | | | | [address] | | + + + + + Care Team Providers + +------+ + | Care Fuel Conversion Technician Name | Role | Phone | [...] 2018 | Encounter | Center at [facility] [address] | | | | | | [address] | | | | | | Mailcode: Center | | | | | | for Health and | | | | | | Healing, Building [address] | | | | | | [place], [place] | | | | | | [address] | | | | | | [phone] | | | +--------+ + + + [...] | Encounter | | MD Bryson [address] | | | | | | [address] | | | | | | [place], [place] | | | | | | [address] | | | | | | [phone] | | | | | | | | +--------+ + + + + | 09/22/ | Surgery | Surgery | Shu, | RECURRENT VENTRAL | | 2018 | | | MD Bryson [address] | HERNIA REPAIR AND | | | | | [address] | EXCISION OF MESH | | | | | [place], [place] | | | | | | [address] | | | | | | [phone] | | | | | | | | +--------+ + + + + documented as of this encounter Visit Diagnoses Not on filedocumented in this encounter"
--- OUTSIDE RECORDS SUMMARY | ~2019-09-13 | XMS | Encounter Summary ---
Demographics + + + | Address | [address] | | | [place] [address] | + + + | Home Phone [...] [place] | | | | | [address] | | + + + + + Care Team Providers + +------+ + | Care Ammonium Sulfate Operator Name | Role | Phone | [...] 2018 | Encounter | Center at [facility] [address] | ACNP [address] | vitamin ok? | | | | [address] | Ave [place], [place] | | | | | Mailcode: Center | [address] | | | | | for Health and | [phone] | | | | | [facility] 2 | | | | | | [place], [place] | | | | | | [address] | | | | | | [phone] | | | +--------+ + + + [...] Rd | | | | | | [place], [place] | | | | | | [address] | | | | | | [phone] | | | | | | | | +--------+ + + + + | 09/22/ | Surgery | Surgery | Shu, | RECURRENT VENTRAL | | 2019 | | | MD Bryson [address] | HERNIA REPAIR AND | | | | | [address] | EXCISION OF MESH | | | | | [place], [place] | | | | | | [address] | | | | | | [phone] | | | | | | | | +--------+ + + + + documented as of this encounter Visit Diagnoses Not on filedocumented in this encounter"
--- OUTSIDE RECORDS SUMMARY | ~2019-09-13 | XMS | Encounter Summary ---
Demographics + + + | Address | [address] | | | [place] [address] | + + + | Home Phone [...] [address] | | | | | [place] | | | | | [address] | | + + + + + Care Team Providers + +------+ + | Care Drill Press Tender Name | Role | Phone | [...] 2018 | Encounter | Center at [facility] [address] | ACNP [address] | | | | | [address] | Ave [place], [place] | | | | | Mailcode: Center | [address] | | | | | for Health and | [phone] | | | | | Healing, Building [address] | | | | | | [place], [place] | | | | | | [address] | | | | | | [phone] | | | +--------+ + + + [...] Rd | | | | | | [place], [place] | | | | | | [address] | | | | | | [phone] | | | | | | | | +--------+ + + + + | 09/22/ | Surgery | Surgery | Shu, | RECURRENT VENTRAL | | 2018 | | | MD Bryson [address] | HERNIA REPAIR AND | | | | | [address] | EXCISION OF MESH | | | | | [place] | | | | | | [address] | | | | | | [phone] | | | | | | | | +--------+ + + + + documented as of this encounter Visit Diagnoses Not on filedocumented in this encounter"
--- OUTSIDE RECORDS SUMMARY | ~2019-09-13 | XMS | Encounter Summary ---
Demographics + + + | Address | [address] | | | [place] [address] | + + + | Home Phone [...] [place] | | | | | [address] | | + + + + + Care Team Providers + +------+ + | Care Incident Handler Name | Role | Phone | [...] | 2017 | Encounter | Center at [facility] [address]25 | MD [address] | | | | | [address] | [place], [place] | | | | | Mailcode: Center | [address] | | | | | for Health and | | | | | | [facility] 2 | | | | | | [place], [place] | | | | | | [address] | | | | | | | [...] Rd | | | | | | [facility] [place] | | | | | | [address] | | | | | | [phone] | | | | | | | | +--------+ + + + + | 09/22/ | Surgery | Surgery | Shu, | RECURRENT VENTRAL | | 2018 | | | MD Devaughn Massey | HERNIA REPAIR AND | | | | | [address] | EXCISION OF MESH | | | | | [place], [place] | | | | | | [address] | | | | | | [phone] | | | | | | | | +--------+ + + + + documented as of this encounter Visit Diagnoses Not on filedocumented in this encounter"
--- OUTSIDE RECORDS SUMMARY | ~2019-09-13 | XMS | Encounter Summary ---
Demographics + + + | Address | [address] | | | [place] [address] | + + + | Home Phone [...] [place] | | | | | [address] | | + + + + + Care Team Providers + +------+ + | Care General Operations Manager Name | Role | Phone | [...] the | | 2019 | Encounter | [place] at [facility] [address] | MD Bryson [address] | hernia | | | | [address] | [address] | | | | | Mailcode: Center | [place], [place] | | | | | for Health and | [address] | | | | | [facility], [address] 2 | [phone] | | | | | [place], [place] | | | | | | [address] | | | | | | [phone] | | | +--------+ + + + [...] Rd | | | | | | [place], [place] | | | | | | [address] | | | | | | [phone] | | | | | | | | +--------+ + + + + | 09/22/ | Surgery | Surgery | Shu, | RECURRENT VENTRAL | | 2018 | | | MD Devaughn Massey | HERNIA REPAIR AND | | | | | [address] | EXCISION OF MESH | | | | | [place], [place] | | | | | | [address] | | | | | | [phone] | | | | | | | | +--------+ + + + + documented as of this encounter Visit Diagnoses Not on filedocumented in this encounter"
--- OUTSIDE RECORDS SUMMARY | ~2019-09-13 | XMS | Encounter Summary ---
Demographics + + + | Address | [address] | | | [place] [address] | + + + | Home Phone [...] [place] | | | | | [address] | | + + + + + Care Team Providers + +------+ + | Care Marketing Production Specialist Name | Role | Phone | [...] 2018 | | Center at [facility] [address] | MD [address] | sided near | | | | [address] | [place], [place] | incision) | | | | Mailcode: Center | [address] | | | | | for Health and | [phone] | | | | | [facility] 2 | | | | | | [place], [place] | | | | | | [address] | | | | | | [phone] | | | +--------+ + + + [...] [place] | | | | | | [address] | | | | | | [phone] | | | | | | | | +--------+ + + + + | 09/22/ | Surgery | Surgery | Shu, | RECURRENT VENTRAL | | 2018 | | | MD Devaughn Massey | HERNIA REPAIR AND | | | | | [address] | EXCISION OF MESH | | | | | [place] | | | | | | [address] | | | | | | [phone] | | | | | | | | +--------+ + + + + documented as of this encounter Visit Diagnoses Not on filedocumented in this encounter"
--- OUTSIDE RECORDS SUMMARY | ~2019-09-13 | XMS | Encounter Summary ---
Demographics + + + | Address | [address] | | | [place] [address] | + + + | Home Phone [...] [place] | | | | | [address] | | + + + + + Care Team Providers + +------+ + | Care Software Specialist Name | Role | Phone | [...] | Center at [facility] [address] | MD [address] | | | | | [address] | [place], [place] | | | | | Mailcode: Center | [address] | | | | | for Health and | | | | | | [facility] 2 | | | | | | [place], [place] | | | | | | [address] | | | | | | | [...] Rd | | | | | | [place], [place] | | | | | | [address] | | | | | | [phone] | | | | | | | | +--------+ + + + + | 09/22/ | Surgery | Surgery | Shu, | RECURRENT VENTRAL | | 2018 | | | MD Devaughn Massey | HERNIA REPAIR AND | | | | | [address] | EXCISION OF MESH | | | | | [place], [place] | | | | | | [address] | | | | | | [phone] | | | | | | | | +--------+ + + + + documented as of this encounter Visit Diagnoses Not on filedocumented in this encounter"
--- OUTSIDE RECORDS SUMMARY | ~2019-09-13 | XMS | Encounter Summary ---
Demographics + + + | Address | [address] | | | [place] [address] | + + + | Home Phone [...] [place] | | | | | [address] | | + + + + + Care Team Providers + +------+ + | Care Rn Interventional Name | Role | Phone | + [...] | 2017 | Encounter | Center at [place] [address] | | denial | | | | [address] | | | | | | Mailcode: Center | | | | | | for Health and | | | | | | Healing, Building 2 | | | | | | [place], [place] | | | | | | [address] | | | | | | [phone] | | | +--------+ + + + [...] Rd | | | | | | [place], [place] | | | | | | [address] | | | | | | [phone] | | | | | | | | +--------+ + + + + | 09/22/ | Surgery | Surgery | Shu, | RECURRENT VENTRAL | | 2019 | | | MD Bryson [address] | HERNIA REPAIR AND | | | | | [address] | EXCISION OF MESH | | | | | [place] | | | | | | [address] | | | | | | [phone] | | | | | | | | +--------+ + + + + documented as of this encounter Visit Diagnoses Not on filedocumented in this encounter"
--- OUTSIDE RECORDS SUMMARY | ~2019-09-13 | XMS | Encounter Summary ---
Demographics + + + | Address | [address] | | | [place] [address] | + + + | Home Phone [...] [place] | | | | | [address] | | + + + + + Care Team Providers + +------+ + | Care Health Care Legal Assistant Name | Role | Phone | [...] | | | or gangrene | | [place] for | | | | | | | Health and | | | | | | | Healing, | | | | | | | Building [address] | | | | | | | [place], [place] | | | | | | | [address] | | | | | | | Phone: | | | | | | | [phone] | | | | | | | Fax: | | | | | | | [phone] | + +--------+ + + + + Encounter Details +--------+---------+ + + + | Date | Type | Department | Care Team | Description | +--------+---------+ + + + | 09/07/ | Office | Digestive Health | [address] | S/P laparoscopic | | 2018 | Visit | Center at [facility] [address] | [address] | sleeve gastrectomy | | | | [address] | [address] [place], | (Primary Dx); Morbid | | | | Mailcode: [place] | [place] [address] | obesity with BMI of | | | | for Health and | | 40.0-44.9, adult | | | | Healing, Building 2 | | ([facility]); Borderline | | | | [place], [place] | | diabetes | | | | [address] | | | | | | [phone] | | | +--------+---------+ + + + [...] of visit: 1:03 to 1:28 (25 minutes [id number] with patient) Surgery: Sleeve Gastrectomy Date of [...] choices: Water, Popsicles, Powerade Supplementation: multivitamin - Wantagh's, calcium with vitamin D - Citracal Petites [...] multivitamin & mineral (with iron) supplement, 2/day -2885-1737 mg calcium citrate with vitamin D/day (take [...] month post-op Chetna Alves RD, CNSC, LD [facility] Bariatrics [phone] documented in this enco unter Plan of [...] Rd | | | | | | [place], [place] | | | | | | [address] | | | | | | [phone] | | | | | | | | +--------+ + + + + | 09/22/ | Surgery | Surgery | Shu, | RECURRENT VENTRAL | | 2019 | | | MD Bryson [address] | HERNIA REPAIR AND | | | | | [address] | EXCISION OF MESH | | | | | [place], [place] | | | | | | [address] | | | | | | [phone] | | | | | | | | +--------+ + + + + documented as of this encounter Procedures + +--------+ + + + | Procedure Name | Priori | Date/Time | Associated Diagnosis | Comments | | | ty | | | | + +--------+ + + + | GA MNT RE-ASSESSMNT | Routin | 09/07/2018 | Morbid obesity | | | X15MIN | e | 3:05 PM | with BMI of | | | | | PST | 40.0-44.9, adult | | | | | | ([facility]) Borderline | | | | | | [...]
--- OUTSIDE RECORDS SUMMARY | ~2019-09-13 | XMS | Encounter Summary ---
Demographics + + + | Address | [address] | | | [place] [address] | + + + | Home Phone [...] [place] | | | | | [address] | | + + + + + Care Team Providers + +------+ + | Care Catering Convention Services Manager Name | Role | Phone [...] Pharmacy | | | | | | [address] | | | | | | Jessica Sepulveda [place], | | | | | | [place] [address] | | | | | | [phone] | | | +--------+ + + + [...] Rd | | | | | | [place], [place] | | | | | | [address] | | | | | | [phone] | | | | | | | | +--------+ + + + + | 09/22/ | Surgery | Surgery | Shu, | RECURRENT VENTRAL | | 2018 | | | MD Devaughn Massey | HERNIA REPAIR AND | | | | | [address] | EXCISION OF MESH | | | | | [place], [place] | | | | | | [address] | | | | | | [phone] | | | | | | | | +--------+ + + + + documented as of this encounter Visit Diagnoses Not on filedocumented in this encounter"
--- OUTSIDE RECORDS SUMMARY | ~2019-09-13 | XMS | Encounter Summary ---
Demographics + + + | Address | [address] | | | [place] [address] | + + + | Home Phone [...] [place] | | | | | [address] | | + + + + + Care Team Providers + +------+ + | Care Mining Engineer Name | Role | Phone | [...] | | [address] | Ave [facility] [place] | (Bariatric | | | | Mailcode: Center | [address] | questionnaire) | | | | for Health and | [phone] | | | | | [facility] 2 | | | | | | [place], [place] | | | | | | [address] | | | | | | [phone] | | | +--------+ + + + [...] Rd | | | | | | [place], [place] | | | | | | [address] | | | | | | [phone] | | | | | | | | +--------+ + + + + | 09/22/ | Surgery | Surgery | Shu, | RECURRENT VENTRAL | | 2018 | | | MD Devaughn Massey | HERNIA REPAIR AND | | | | | [address] | EXCISION OF MESH | | | | | [place], [place] | | | | | | [address] | | | | | | [phone] | | | | | | | | +--------+ + + + + documented as of this encounter Visit Diagnoses Not on filedocumented in this encounter"
--- OUTSIDE RECORDS SUMMARY | ~2019-09-13 | XMS | Encounter Summary ---
Demographics + + + | Address | [address] | | | [place] [address] | + + + | Home Phone [...] [place] | | | | | [address] | | + + + + + Care Team Providers + +------+ + | Care Japanese Professor Name | Role | Phone | [...] | Center at [facility] [address] | MD [address] | | | | | [address] | [place], [place] | | | | | Mailcode: Center | [address] | | | | | for Health and | [phone] | | | | | [place] [address] | | | | | | [place], [place] | | | | | | [address] | | | | | | [phone] | | | +--------+ + + + [...] Rd | | | | | | [facility] [place] | | | | | | [address] | | | | | | [phone] | | | | | | | | +--------+ + + + + | 09/22/ | Surgery | Surgery | Shu | RECURRENT VENTRAL | | 2019 | | | MD Devaughn Massey | HERNIA REPAIR AND | | | | | [address] | EXCISION OF MESH | | | | | [place], [place] | | | | | | [address] | | | | | | [phone] | | | | | | | | +--------+ + + + + documented as of this encounter Visit Diagnoses Not on filedocumented in this encounter"
--- OUTSIDE RECORDS SUMMARY | ~2019-09-13 | XMS | Encounter Summary ---
Demographics + + + | Address | [address] | | | [place] [address] | + + + | Home Phone [...] [place] | | | | | [address] | | + + + + + Care Team Providers + +------+ + | Care Seo Assistant Name | Role | Phone | [...] | 2019 | Visit | Center at [facility] 34[address] | [facility] [address] | sleeve gastrectomy | | | | [address] | Ave [place], [place] | (Primary Dx); | | | | Mailcode: Center | [address] | Abnormal intestinal | | | | for Health and | [phone] | absorption | | | | Healing, Building 2 | | | | | | [place], [place] | | | | | | [address] | | | | | | [phone] | | | +--------+---------+ + + + [...] Please join us for our twice monthly [facility] meetings on the Blushr platform. Download the connie on your smartphone or visit the website [email or web address] Click "join a meeting " enter the meeting number below at the scheduled time. Our monthly schedule is as follows: The Wednesday of every month at 5:30PM The Wednesday of every month at 1:00PM The meeting number is: [phone] Please note that this is an optional [...] with her boyfriend-they are driving down to [place] today from this appointme nt. She has [...] uncomfortable and sometime s makes her nauseous. Sraa feels like she has more energy than [...] of fallopian tube Laparoscopic sleeve gastrectomy 08/31/[address] [facility] [address] Social History Socioeconomic History [...] file Gets together: Not on file Attends temple service: Not on file Active member of [...] to plan and will call and/or send [employer] message if any issues. Start time 1445, end time 1510. I spent a total of 25 minutes face to face with this patie nt. Over 50% of visit was in counseling. JOSETTE Seaman Bariatric Surgery Nurse Practitioner [facility] | [address] | [place], [place] | [address] | documented in th is encounter Plan [...] Rd | | | | | | [place], [place] | | | | | | [address] | | | | | | [phone] | | | | | | | | +--------+ + + + + | 09/22/ | Surgery | Surgery | Shu, | RECURRENT VENTRAL | | 2019 | | | MD Devaughn Massey [address] | HERNIA REPAIR AND | | | | | [address] | EXCISION OF MESH | | | | | [facility] [place] | | | | | | [address] | | | | | | [phone] | | | | | | | [...]
--- OUTSIDE RECORDS SUMMARY | ~2019-09-13 | XMS | Encounter Summary ---
Demographics + + + | Address | [address] | | | [place] [address] | + + + | Home Phone [...] [place] | | | | | [address] | | + + + + + Care Team Providers + +------+ + | Care Asphalt Still Operator Name | Role | Phone | [...] 2019 | Encounter | Center at [facility] [address] | MD [address] | follow up | | | | [address] | [place], [place] | appointment | | | | Mailcode: Center | [address] | | | | | for Health and | [phone] | | | | | Healing, Building [address] | | | | | | [place], [place] | | | | | | [address] | | | | | | [phone] | | | +--------+ + + + [...] Rd | | | | | | [place], [place] | | | | | | [address] | | | | | | [phone] | | | | | | | | +--------+ + + + + | 09/22/ | Surgery | Surgery | Shu, | RECURRENT VENTRAL | | 2018 | | | MD Devaughn Massey | HERNIA REPAIR AND | | | | | [address] | EXCISION OF MESH | | | | | [place], [place] | | | | | | [address] | | | | | | [phone] | | | | | | | | +--------+ + + + + documented as of this encounter Visit Diagnoses Not on filedocumented in this encounter"
--- OUTSIDE RECORDS SUMMARY | ~2019-09-13 | XMS | Encounter Summary ---
Demographics + + + | Address | [address] | | | [place] [address] | + + + | Home Phone [...] [place] | | | | | [address] | | + + + + + Care Team Providers + +------+ + | Care Investigator Internal Revenue Name | Role | Phone | + +------+ + | No Pcp Per Patient | PCP | Unavailable | + +------+ + Encounter Details +--------+ + + + + | Date | Type | Department | Care Team | Description | +--------+ + + + + | 10/22/ | Abstract | Digestive Health | Clinic, Surgery | | | 2016 | | [place] [facility] [address] | | | | | | [address] | | | | | | Mailcode: [place] | | | | | | [facility] and | | | | | | Healing, Building 2 | | | | | | [place], [place] | | | | | | [address] | | | | | | [phone] | | | +--------+ + + + [...] [place] | | | | | | [address] | | | | | | [phone] | | | | | | | | +--------+ + + + + | 09/22/ | Surgery | Surgery | Shu, | RECURRENT VENTRAL | | 2019 | | | MD Bryson [address] | HERNIA REPAIR AND | | | | | [address] | EXCISION OF MESH | | | | | [place], [place] | | | | | | [address] | | | | | | [phone] | | | | | | | | +--------+ + + + + documented as of this encounter Visit Diagnoses Not on filedocumented in this encounter"
--- OUTSIDE RECORDS SUMMARY | ~2019-09-13 | XMS | Encounter Summary ---
Demographics + + + | Address | [address] | | | [place] [address] | + + + | Home Phone [...] [place] | | | | | [address] | | + + + + + Care Team Providers + +------+ + | Care Patrol Driver Name | Role | Phone | [...] | 2018 | | Center at [facility] [address] | MD [address] | scheduling, possible | | | | [address] | [place], [place] | GERD symptoms) | | | | Mailcode: [place] | [address] | | | | | for Health and | | | | | | [facility] 2 | | | | | | [place], [place] | | | | | | [address] | | | | | | | [...] | | | | | | [facility] [place] | | | | | | [address] | | | | | | [phone] | | | | | | | | +--------+ + + + + | 09/22/ | Surgery | Surgery | Shu, | RECURRENT VENTRAL | | 2018 | | | MD Devaughn Massey | HERNIA REPAIR AND | | | | | [address] | EXCISION OF MESH | | | | | [place], [place] | | | | | | [address] | | | | | | [phone] | | | | | | | | +--------+ + + + + documented as of this encounter Visit Diagnoses Not on filedocumented in this encounter"
--- OUTSIDE RECORDS SUMMARY | ~2019-09-13 | XMS | Encounter Summary ---
Demographics + + + | Address | [address] | | | [place] [address] | + + + | Home Phone [...] [place] | | | | | [address] | | + + + + + Care Team Providers + +------+ + | Care Pulp Mixer Name | Role | Phone | [...] Medical Records | | 2018 | | [place] [facility] [address] | | Review | | | | [address] | | | | | | Mailcode: [place] | | | | | | for Health and | | | | | | Healing, Building [address] | | | | | | [place], [place] | | | | | | [address] | | | | | | [phone] | | | +--------+ + + + [...] Rd | | | | | | [place], [place] | | | | | | [address] | | | | | | [phone] | | | | | | | | +--------+ + + + + | 09/22/ | Surgery | Surgery | Shu, | RECURRENT VENTRAL | | 2019 | | | MD Bryson [address] | HERNIA REPAIR AND | | | | | [address] | EXCISION OF MESH | | | | | [facility] [place] | | | | | | [address] | | | | | | [phone] | | | | | | | | +--------+ + + + + documented as of this encounter Visit Diagnoses Not on filedocumented in this encounter"
--- OUTSIDE RECORDS SUMMARY | ~2019-09-13 | XMS | Encounter Summary ---
Demographics + + + | Address | [address] | | | [place] [address] | + + + | Home Phone [...] [place] | | | | | [address] | | + + + + + Care Team Providers + +------+ + | Care Condenser Tester Name | Role | Phone | + +------+ + | Aleshia Martinez PA-C | PCP | | + +------+ + Encounter Details +--------+------+ + + + | Date | Type | Department | Care Team | Description | +--------+------+ + + + | 01/06/ | Lab | Laboratory at 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 | | | | | (FORMERLY [facility]) Borderline | | | | | | [...] results section. | | | | | ([facility]) Borderline | | | | | | [...] [facility] | [address] | [place] [address] | | | SERVICES, CORE | PARK [...] | + + + + + | [facility] | [address] | [place] [address] | | | SERVICES, KUSH | SHAHLA [...] | [facility] | | considered for monitoring superintendent terminal glycemic control in patients with: | LABORATORY [...] | + + + + + | [facility] | [address] | [place] [address] | | | SERVICES, SPECIAL | SHAHLA [...] | | | | | determined by [employer] | | | | | | Laboratories. See | | | | | | Compliance Statement B: | | | | | | Sudiksha.scroll kit/CSPerformed | | | | | | by [email or web address] | | | | | | [facility] | | | | | | [address] | | | | | | [phone].Sudiksha. | | | | | | [facility], Gerardo Esquivel MD, | | | [...] [facility] | [address] | [place], [place] | | | [facility] | | [address] | | + + + + + [...] | | | LABORATORY | | | ETHIOPIAN | | | SERVICES, | | | [...] [facility] | [address] | [place] [address] | | | SERVICES, CORE | PARK [...] [facility] | [address] | [place] [address] | | | SERVICES, CORE | PARK [...] [facility] | [address] | [place] [address] | | | SERVICES, CORE | PARK [...] | + + + + + | [facility] [employer] | [address] | [place] [address] | | | NILO, CORE | SHAHLA [...] | + + + + + | [facility] | [address] | [place] [address] | | | SERVICES, CORE | SHAHLA [...] | + + + + + | [facility] | [address] | [place] [address] | | | SERVICES, CORE | PARK [...] | + + + + + | [facility] | [address] | [place] [address] | | | SERVICES, CORE | SHAHLA [...]
--- OUTSIDE RECORDS SUMMARY | ~2019-09-13 | XMS | Encounter Summary ---
Demographics + + + | Address | [address] | | | [place] [address] | + + + | Home Phone [...] [place] | | | | | [address] | | + + + + + Care Team Providers + +------+ + | Care Veterinary Virus Serum Inspector Name | Role | Phone | [...] | | 2018 | | Center at [facility] [address] | [address] | ) | | | | [address] | [place], [place] | | | | | Mailcode: [place] | [address] | | | | | for Health and | [phone] | | | | | [place] [address] | | | | | | [place], [place] | | | | | | [address] | | | | | | [phone] | | | +--------+ + + + [...] Rd | | | | | | [place], [place] | | | | | | [address] | | | | | | [phone] | | | | | | | | +--------+ + + + + | 09/22/ | Surgery | Surgery | Shu, | RECURRENT VENTRAL | | 2018 | | | MD Bryson [address] | HERNIA REPAIR AND | | | | | [address] | EXCISION OF MESH | | | | | [place], [place] | | | | | | [address] | | | | | | [phone] | | | | | | | | +--------+ + + + + documented as of this encounter Visit Diagnoses Not on filedocumented in this encounter"
--- OUTSIDE RECORDS SUMMARY | ~2019-09-13 | XMS | Encounter Summary ---
Demographics + + + | Address | [address] | | | [place] [address] | + + + | Home Phone [...] [place] | | | | | [address] | | + + + + + Care Team Providers + +------+ + | Care Mold Carrier Name | Role | Phone | + [...] Pharmacy | | | | | | [address] | | | | | | [place], | | | | | | [place] [address] | | | | | | [phone] | | | +--------+ + + + [...] [place] | | | | | | [address] | | | | | | [phone] | | | | | | | | +--------+ + + + + | 09/22/ | Surgery | Surgery | Shu, | RECURRENT VENTRAL | | 2018 | | | MD Devaughn Massey | HERNIA REPAIR AND | | | | | [address] | EXCISION OF MESH | | | | | [place], [place] | | | | | | [address] | | | | | | [phone] | | | | | | | | +--------+ + + + + documented as of this encounter Visit Diagnoses Not on filedocumented in this encounter"
--- OUTSIDE RECORDS SUMMARY | ~2019-09-13 | XMS | Encounter Summary ---
Demographics + + + | Address | [address] | | | [place] [address] | + + + | Home Phone [...] [place] | | | | | [address] | | + + + + + Care Team Providers + +------+ + | Care World Geography Teacher Name | Role | Phone | + +------+ + | Aleshia Martinez PA-C | PCP | | + +------+ + Encounter Details +--------+ + + + + | Date | Type | Department | Care Team | Description | +--------+ + + + + | 06/22/ | Telephone | Digestive Health | Gildardo Downing, | | | 2017 | | Center at [facility] [address] | [address] | | | | | [address] | [facility] [place] | | | | | Mailcode: Center | [address] | | | | | for Health and | [phone] | | | | | [facility], [address] | | | | | | [place], [place] | | | | | | [address] | | | | | | [phone] | | | +--------+ + + + [...] Rd | | | | | | [place], [place] | | | | | | [address] | | | | | | [phone] | | | | | | | | +--------+ + + + + | 09/22/ | Surgery | Surgery | Shu, | RECURRENT VENTRAL | | 2018 | | | MD Bryson [address] | HERNIA REPAIR AND | | | | | [address] | EXCISION OF MESH | | | | | [place], [place] | | | | | | [address] | | | | | | [phone] | | | | | | | | +--------+ + + + + documented as of this encounter Visit Diagnoses Not on filedocumented in this encounter"
--- OUTSIDE RECORDS SUMMARY | ~2019-09-13 | XMS | Encounter Summary ---
Demographics + + + | Address | [address] | | | [place] [address] | + + + | Home Phone | | + + + | Preferred Language | Unknown | + + + | Marital Status | | + + + | Anabaptism Affiliation | CHR | + + + | Race | White | + + + | Ethnic Group | Not or | + + + Author + + + | Author | [facility] | + + + | Organization | [facility] | + + + | Address | Unknown | + + + | Phone | Unavailable | + + + Support + + + + + | Name | Relationship | Address | Phone | + + + + + | Stewart Corbett | ECON | [address] | | | | | [place] | | | | | [address] | | + + + + + Care Team Providers + +------+ + | Care Associate Artistic Director Name | Role | Phone | [...] Pharmacy | | | | | | [address] | | | | | | Jessica [place], | | | | | | [place] [address] | | | | | | [phone] | | | +--------+ + + + [...] VIRK | | | | | | [facility] | | | | | | [place], [place] | | | | | | [address] | | | | | | [phone] | | | | | | | | +--------+ + + + + | 09/22/ | Surgery | Surgery | Shu | RECURRENT VENTRAL | | 2018 | | | Bryson, MD [address] | HERNIA REPAIR AND | | | | | [address] | EXCISION OF MESH | | | | | [place], [place] | | | | | | [address] | | | | | | [phone] | | | | | | | | +--------+ + + + + documented as of this encounter Visit Diagnoses Not on filedocumented in this encounter"
--- OUTSIDE RECORDS SUMMARY | ~2019-09-13 | XMS | Encounter Summary ---
Demographics + + + | Address | [address] | | | [place] [address] | + + + | Home Phone [...] [place] | | | | | [address] | | + + + + + Care Team Providers + +------+ + | Care Wheel Grinder Name | Role | Phone | [...] | 2019 | Encounter | Center at [facility] [address] | AGACNP [address] | | | | | [address] | [place], [place] | | | | | Mailcode: Center | [address] | | | | | for Health and | [phone] | | | | | Healing, [address] | | | | | | [place], [place] | | | | | | [address] | | | | | | [phone] | | | +--------+ + + + [...] Rd | | | | | | [facility] [place] | | | | | | [address] | | | | | | [phone] | | | | | | | | +--------+ + + + + | 09/22/ | Surgery | Surgery | Shu, | RECURRENT VENTRAL | | 2018 | | | MD Devaughn Massey | HERNIA REPAIR AND | | | | | [address] | EXCISION OF MESH | | | | | [place], [place] | | | | | | [address] | | | | | | [phone] | | | | | | | [...]
--- OUTSIDE RECORDS SUMMARY | ~2019-09-13 | XMS | Encounter Summary ---
Demographics + + + | Address | [address] | | | [place] [address] | + + + | Home Phone [...] [place] | | | | | [address] | | + + + + + Care Team Providers + +------+ + | Care Mobile Application Engineer Name | Role | Phone | [...] | 2017 | Visit | Center at [facility] 3485 | | body mass index of | | | | [address] | | 40.0-44.9 in adult | | | | Mailcode: Center | | ([facility]) (Primary Dx) | | | | for Health and | | | | | | [facility] 2 | | | | | | [place], [place] | | | | | | [address] | | | | | | [phone] | | | +--------+---------+ + + + [...] of Class: 2:00/3:00 until 3:00/4:00 (60 minutes gvkj-uk-qgwz with patient) OBJECTIVE: Height: Ht Readings from [...] sharing information. Yes Carmen Dumont RD,LD Pager# [phone] Phone: [phone] documented in this en counter Plan of [...] Rd | | | | | | [place], [place] | | | | | | [address] | | | | | | [phone] | | | | | | | | +--------+ + + + + | 09/22/ | Surgery | Surgery | Shu, | RECURRENT VENTRAL | | 2019 | | | MD Bryson [address] | HERNIA REPAIR AND | | | | | [address] | EXCISION OF MESH | | | | | [facility] [place] | | | | | | [address] | | | | | | [phone] | | | | | | | | +--------+ + + + + documented as of this encounter Visit Diagnoses + + | Diagnosis | + + | Morbid obesity with body mass index of 40.0-44.9 in adult ([facility]) - Primary | + + documented in this encounter
--- OUTSIDE RECORDS SUMMARY | ~2019-09-13 | XMS | Encounter Summary ---
Demographics + + + | Address | [address] | | | [place] [address] | + + + | Home Phone [...] [place] | | | | | [address] | | + + + + + Care Team Providers + +------+ + | Care Director Public Service Name | Role | Phone | [...] 2018 | Visit | Center at [facility] [address] | MD [address] | surgery (Primary | | | | [address] | [facility] [place] | Dx); S/P | | | | Mailcode: Center | [address] | laparoscopic sleeve | | | | for Health and | [phone] | gastrectomy | | | | Healing, [address] | | | | | | [place], [place] | | | | | | [address] | | | | | | [phone] | | | +--------+---------+ + + + [...] can be adjusted. Please visit with our Heel Breaster (RD) for instructions about your Bariatric diet, assistance with calorie counts, tips and tricks for working with your diet restrictions, an d recipes after bariatric surgery. Daily yogurt; even just 1 tablespoon twice a day will provide enough probiotics to optimize digestion. Try to use a high-quality, probiotic-dense yogurt (eg Marielena's, [place], Lif eway Kefir, Pattern Vault Clerk Dom's Ukrainian Yogurt). Remember to chew your food well, [...] GILDARDO DOWNING MD. Division of Bariatric Surgery [facility] | [address] | [place], [place] | [address] | documented in this en counter Plan [...] Rd | | | | | | [place], [place] | | | | | | [address] | | | | | | [phone] | | | | | | | | +--------+ + + + + | 09/22/ | Surgery | Surgery | Shu, | RECURRENT VENTRAL | | 2018 | | | MD Devaughn Massey | HERNIA REPAIR AND | | | | | [address] | EXCISION OF MESH | | | | | [place], [place] | | | | | | [address] | | | | | | [phone] | | | | | | | | +--------+ + + + + documented as of this encounter Visit Diagnoses + + | Diagnosis | + + | Aftercare following surgery - Primary Encounter for other specified aftercare | + + | S/P laparoscopic sleeve gastrectomy | + + documented in this encounter
--- OUTSIDE RECORDS SUMMARY | ~2019-09-13 | XMS | Encounter Summary ---
Demographics + + + | Address | [address] | | | [place] [address] | + + + | Home Phone [...] [place] | | | | | [address] | | + + + + + Care Team Providers + +------+ + | Care Senior Lead Developer Name | Role | Phone | [...] | | 2016 | anned | Services [address] | | | | | | [address] | | | | | | Mailcode: OP17A | | | | | | [facility] | | | | | | [place], [place] | | | | | | [address] | | | | | | [phone] | | | +--------+ + + + [...] [place] | | | | | | [address] | | | | | | [phone] | | | | | | | | +--------+ + + + + | 09/22/ | Surgery | Surgery | Shu, | RECURRENT VENTRAL | | 2018 | | | MD Bryson [address] | HERNIA REPAIR AND | | | | | [address] | EXCISION OF MESH | | | | | [facility] [place] | | | | | | [address] | | | | | | [phone] | | | | | | | [...]
--- OUTSIDE RECORDS SUMMARY | ~2019-09-13 | XMS | Encounter Summary ---
Demographics + + + | Address | [address] | | | [place] [address] | + + + | Home Phone [...] [place] | | | | | [address] | | + + + + + Care Team Providers + +------+ + | Care Insulation Blanket Maker Name | Role | Phone | [...] | | | 2018 | Event | [facility] | , [place] [address] [facility] [address] [address] | | | | | Admitting Desk | [address] | | | | | Located on the | [place], [place] | | | | | [facility] [address] [facility] | [address] | | | | | [address] | [phone] | | | | | [place], [place] | | | | | | [address] | | | +--------+ + + + [...] [place] | | | | | | [address] | | | | | | [phone] | | | | | | | | +--------+ + + + + | 09/22/ | Surgery | Surgery | Shu, | RECURRENT VENTRAL | | 2018 | | | MD Devaughn Massey | HERNIA REPAIR AND | | | | | [address] | EXCISION OF MESH | | | | | [place] | | | | | | [address] | | | | | | [phone] | | | | | | | [...]
--- OUTSIDE RECORDS SUMMARY | ~2019-09-13 | XMS | Encounter Summary ---
Demographics + + + | Address | [address] | | | [place] [address] | + + + | Home Phone [...] [place] | | | | | [address] | | + + + + + Care Team Providers + +------+ + | Care Reimbursement Analyst Name | Role | Phone | [...] | 2017 | Visit | Center at [facility] [address] | | BMI of 40.0-44.9, | | | | [address] | | adult (HCC) (Primary | | | | Mailcode: Center | | Dx) | | | | for Health and | | | | | | [facility], [address] | | | | | | [place], [place] | | | | | | [address] | | | | | | [phone] | | | +--------+---------+ + + + [...] of Class: 2:00/3:00 until 3:00/4:00 (60 minutes oyxe-je-scwk with patient) OBJECTIVE: Height: Ht Readings from [...] or sharing information. Yes [address] Al[address], [facility], [facility] Bariatrics [phone] documented in this enco unter Plan of [...] Rd | | | | | | [facility] [place] | | | | | | [address] | | | | | | [phone] | | | | | | | | +--------+ + + + + | 09/22/ | Surgery | Surgery | Shu, | RECURRENT VENTRAL | | 2018 | | | MD Bryson [address] | HERNIA REPAIR AND | | | | | [address] | EXCISION OF MESH | | | | | [facility] [place] | | | | | | [address] | | | | | | [phone] | | | | | | | | +--------+ + + + + documented as of this encounter Visit Diagnoses + + | Diagnosis | + + | Morbid obesity with BMI of 40.0-44.9, adult (HCC) - Primary | + + documented in this encounter
--- OUTSIDE RECORDS SUMMARY | ~2019-09-13 | XMS | Encounter Summary ---
Demographics + + + | Address | [address] | | | [place] [address] | + + + | Home Phone [...] [place] | | | | | [address] | | + + + + + Care Team Providers + +------+ + | Care General Dentist Name | Role | Phone | [...] 2018 | Encounter | Center at [facility] [address] | | insurance plan for | | | | [address] | | surgery | | | | Mailcode: Center | | | | | | for Health and | | | | | | Healing, [address] | | | | | | [place], [place] | | | | | | [address] | | | | | | [phone] | | | +--------+ + + + [...] Rd | | | | | | [place], [place] | | | | | | [address] | | | | | | [phone] | | | | | | | | +--------+ + + + + | 09/22/ | Surgery | Surgery | Shu, | RECURRENT VENTRAL | | 2019 | | | MD Bryson [address] | HERNIA REPAIR AND | | | | | [address] | EXCISION OF MESH | | | | | [place] | | | | | | [address] | | | | | | [phone] | | | | | | | | +--------+ + + + + documented as of this encounter Visit Diagnoses Not on filedocumented in this encounter"
--- OUTSIDE RECORDS SUMMARY | ~2019-09-13 | XMS | Encounter Summary ---
Demographics + + + | Address | [address] | | | [place] [address] | + + + | Home Phone [...] [place] | | | | | [address] | | + + + + + Care Team Providers + +------+ + | Care Manufacturing Millwright Name | Role | Phone | + +------+ + | Aleshia Martinez PA-C | PCP | | + +------+ + Encounter Details +--------+---------+ + + + | Date | Type | Department | Care Team | Description | +--------+---------+ + + + | 05/30/ | Office | Digestive Health | | Morbid obesity (HCC) | | 2018 | Visit | Center at [facility] [address] | | (Primary Dx) | | | | [address] | | | | | | Mailcode: Center | | | | | | for Health and | | | | | | Healing, [address] | | | | | | [place], [place] | | | | | | [address] | | | | | | [phone] | | | +--------+---------+ + + + [...] of Class: 1105 until 1225 (80 minutes neme-hh-gfnx with patient) Teaching Methods: PowerPoint and verbal [...] a journal with fluid/protein d. Transportation 7. [place] [facility] 8. Surgical [...] [place] | | | | | | [address] | | | | | | [phone] | | | | | | | | +--------+ + + + + | 09/22/ | Surgery | Surgery | Shu | RECURRENT VENTRAL | | 2018 | | | MD Devaughn Massey | HERNIA REPAIR AND | | | | | [address] | EXCISION OF MESH | | | | | [place] | | | | | | [address] | | | | | | [phone] | | | | | | | | +--------+ + + + + documented as of this encounter Visit Diagnoses + + | Diagnosis | + + | Morbid obesity (HCC) - Primary Morbid obesity | + + documented in this encounter"
--- OUTSIDE RECORDS SUMMARY | ~2019-09-13 | XMS | Encounter Summary ---
Demographics + + + | Address | [address] | | | [place] [address] | + + + | Home Phone [...] [place] | | | | | [address] | | + + + + + Care Team Providers + +------+ + | Care Auto Parts Counter Person Name | Role | Phone | + +------+ + | Aleshia Martinez PA-C | PCP | | + +------+ + Encounter Details +--------+ + + + + | Date | Type | Department | Care Team | Description | +--------+ + + + + | 05/03/ | Abstract | Digestive Health | Clinic, Surgery | | | 2017 | | [facility] [address] | | | | | | [address] | | | | | | Mailcode: [place] | | | | | | for Health and | | | | | | Healing, [address] | | | | | | [place], [place] | | | | | | [address] | | | | | | [phone] | | | +--------+ + + + [...] Rd | | | | | | [place], [place] | | | | | | [address] | | | | | | [phone] | | | | | | | | +--------+ + + + + | 09/22/ | Surgery | Surgery | [place], | RECURRENT VENTRAL | | 2019 | | | MD Bryson [address] | HERNIA REPAIR AND | | | | | [address] | EXCISION OF MESH | | | | | [place], [place] | | | | | | [address] | | | | | | [phone] | | | | | | | | +--------+ + + + + documented as of this encounter Visit Diagnoses Not on filedocumented in this encounter"
--- OUTSIDE RECORDS SUMMARY | ~2019-09-13 | XMS | Encounter Summary ---
Demographics + + + | Address | [address] | | | [place] [address] | + + + | Home Phone [...] [place] | | | | | [address] | | + + + + + Care Team Providers + +------+ + | Care Immunopathologist Name | Role | Phone | + [...] LAPAROSCOPIC SLEEVE | | 2017 | | [facility] | [address] | GASTRECTOMY with EGD | | | | Admitting Desk | [place], [place] | | | | | Located on the | [address] | | | | | floor [address] [facility] | [phone] | | | | | [facility] | | | | | | [place], [place] | | | | | | [address] | | | +--------+---------+ + + + [...] might be differen t from the original. [facility] RED SURGERY INPATIENT DISCHARGE SUMMARY Author: GAUTAM [...] or Kefir, [place] Yogurt, and Chioban i Ukrainian Yogurt are common brands with beneficial probiotics. [...] are available over the counter at most [facility] Banjo stores. Nausea/Vomiting/Difficulty Swallowing Nausea/Vomiting/Difficulty swallowing: Could be [...] hours per your instructions. Some medications, like [place], have Tylenol in it. Make sure you [...] (PCP) as this clinic does not provide [facility] chronic pain management services. When to [...] hours by calling the surgery office at [phone]. - After hours, weekends and holidays, you may call the hospital long lines operator at [phone] an d have the millstone cleaner Red Surgery Team paged. Destination Home Condition [...] Acute Care Why: follow up with bariatric MEMORY CARE DIRECTOR Contact information [address] [facility] [address] Future Appointments Provider Department Dept Phone Center 09/07/2018 10:00 AM Chetna Alves [facility] at [facility] 6th Floor [phone] KATIA D AND NUT 09/07/2018 10:50 AM Emily Martinez [facility] at [facility] 6th Floor [phone] D ig Health 09/29/2018 10:30 AM Tea Reece [facility] at [facility] 6th Floor [phone] F OOD AND NUT 09/29/2018 11:20 AM Gildardo Downing [facility] at [facility] 6th Floor [phone] Di g Health 11/25/2018 10:00 AM Tea Reece [facility] at [facility] 6th Floor [phone] FO OD AND NUT 11/25/2018 10:50 AM Shanon Etienne [facility] at [facility] 6th Floor [phone] Dig [facility] Discharging Physician: GAUTAM Leblanc Attending Physician: Gildardo Downing MD [facility] Red Surgery Pager# [phone] 10:42 AM 09/02/2018 documented in th is [...] IS, SCDs - Likely d/c tomorrow Severino Vel MS4 General Surgery Associated attestation - Gildardo [...] if this helps. Gildardo Downing MD, FACS, [facility] Division of Bariatric Surgery [facility] | [address] | [place], [place] | [address] | Ludwin Tellez MD - 08/31/2018 8:54 [...] Ludwin Tellez MD General Surgery, PGY1 Pager: [phone] documented in this en counter Plan of [...] SW | | | | | | [address] | | | | | | [place], [place] | | | | | | [address] | | | | | | [phone] | | | | | | | | +--------+ + + + + | 09/22/ | Surgery | Surgery | Shu, | RECURRENT VENTRAL | | 2019 | | | MD Bryson [address] | HERNIA REPAIR AND | | | | | [address] | EXCISION OF MESH | | | | | [place], [place] | | | | | | [address] | | | | | | [phone] | | | | | | | [...] GASTRECTOMY | ve | 12:25 PM | ([facility]) | | | | Surgic [...] DEPT OF | [address] | [place], [place] | | | CARDIOLOGY | [address] | [address] | | + + + + + [...] ABDI | [address] | [place], [place] | | | [facility] | [address] | [address] | | | TESTS | | | [...] | + + + + + | ISRAELDANIA Lopez [place] | [address] | [place], [place] | | | [facility] | [address] | [address] | | | TESTS | | | [...] SURGEON: Gildardo Downing MD. | | | CLINICAL EXERCISE SPECIALIST: Jamie Gonzales MD R6. ANESTHESIA: Ke Strong [...] | | | Gildardo Downing MD, FACS, [facility] Bariatric Surgery | | | | [...] SURGEON: Gildardo Downing MD. | | | CLINICAL EXERCISE SPECIALIST: Jamie Gonzales MD R6. ANESTHESIA: Ke Strong [...] | | | Gildardo Downing MD, FACS, [facility] Bariatric Surgery | | | | [...] | | | POC | | | [place] | | | | | | OF CARE | | | | | | TESTS | | + +-------+ + + + + + | Specimen | + + | | + + + + + + + | Performing | Address | City/State/Zipcode | Phone Number | | Organization | | | | + + + + + | ISRAELDANIA John TARSHAHANDYMARTY | [address] | [place], [place] | | | [facility] | [address] | [address] | | | TESTS | | | [...] | | | | | dose on [facility] 09/01/18 at 0900, | | AM PST [...]
--- OUTSIDE RECORDS SUMMARY | ~2019-09-13 | XMS | Encounter Summary ---
Demographics + + + | Address | [address] | | | [place] [address] | + + + | Home Phone [...] [place] | | | | | [address] | | + + + + + Care Team Providers + +------+ + | Care Confectionery Drops Machine Operator Name | Role | Phone [...] | 2018 | Visit | Center at [facility] [address] | | (Primary Dx) | | | | [address] | | | | | | Mailcode: Center | | | | | | for Health and | | | | | | Healing, Building [address] | | | | | | [place], [place] | | | | | | [address] | | | | | | [phone] | | | +--------+---------+ + + + [...] documented as of this encounter Progress Notes nAa Enriquez RN - 05/30/2018 11:00 AM [facility] Bariatric Pre-Op Class Instructor(s): Ana Enriquez RN Documented Time of Class: 1105 until 1225 (80 minutes [id number] with patient) Teaching Methods: PowerPoint and verbal [...] a journal with fluid/protein d. Transportation 7. [place] for Successful Weight Loss Surgery 8. Surgical [...] [place] | | | | | | [address] | | | | | | [phone] | | | | | | | | +--------+ + + + + | 09/22/ | Surgery | Surgery | Shu | RECURRENT VENTRAL | | 2018 | | | MD Devaughn Massey | HERNIA REPAIR AND | | | | | [address] | EXCISION OF MESH | | | | | [place] | | | | | | [address] | | | | | | [phone] | | | | | | | | +--------+ + + + + documented as of this encounter Visit Diagnoses + + | Diagnosis | + + | Morbid obesity (HCC) - Primary Morbid obesity | + + documented in this encounter"
--- OUTSIDE RECORDS SUMMARY | ~2019-09-13 | XMS | Encounter Summary ---
Demographics + + + | Address | [address] | | | [place] [address] | + + + | Home Phone [...] [place] | | | | | [address] | | + + + + + Care Team Providers + +------+ + | Care Hvac Sales Representative Name | Role | Phone [...] Medical Records | | 2018 | | [place] at [facility] [address] | | Review | | | | [address] | | | | | | Mailcode: [place] | | | | | | for Health and | | | | | | Healing, [address] | | | | | | [place], [place] | | | | | | [address] | | | | | | [phone] | | | +--------+ + + + [...] Rd | | | | | | [place], [place] | | | | | | [address] | | | | | | [phone] | | | | | | | | +--------+ + + + + | 09/22/ | Surgery | Surgery | Shu, | RECURRENT VENTRAL | | 2019 | | | MD Bryson [address] | HERNIA REPAIR AND | | | | | [address] | EXCISION OF MESH | | | | | [facility] [place] | | | | | | [address] | | | | | | [phone] | | | | | | | | +--------+ + + + + documented as of this encounter Visit Diagnoses Not on filedocumented in this encounter"
--- OUTSIDE RECORDS SUMMARY | ~2019-09-13 | XMS | Clinical Summary ---
Demographics + + + | Address | [address] | | | [place] [address] | + + + | Home Phone | | + + + | Preferred Language | Unknown | + + + | Marital Status | | + + + | Scientologist Affiliation | CHR | + + + | Race | White | + + + | Ethnic Group | Not or | + + + Author + + + | Author | [facility] | + + + | Organization | [facility] | + + + | Address | Unknown | + + + | Phone | Unavailable | + + + Support + + + + + | Name | Relationship | Address | Phone | + + + + + | Stewart Corbett | ECON | [address] | | | | | [place] | | | | | [address] | | + + + + + Care Team Providers + +------+ + | Care Organic Chemistry Teacher Name | Role | Phone | + +------+ + | Aleshia Martinez PA-C | PCP | | + +------+ + Source Comments CANDY is fully live on both EpicCare Ambulatory and EpicCare InPatient.[facility] Allergies + + + [...] Rd | | | | | | [place], [place] | | | | | | [address] | | | | | | [phone] | | | | | | | | +--------+ + + + + | 09/22/ | Surgery | Surgery | Shu, | RECURRENT VENTRAL | | 2018 | | | MD Bryson [address] | HERNIA REPAIR AND | | | | | [address] | EXCISION OF MESH | | | | | [place], [place] | | | | | | [address] | | | | | | [phone] | | | | | | | [...] - | | | | | | /[id number] | | [id number]: Qty: 2 on | | | | | | 245 | | 08/31/2018 by Gildardo Downing | | | | | | | | MD [facility] at [facility] | | | | | | [...] - | | | | | | /[id number] | | [id number]: Qty: 2 on | | | | | | 248 | | 08/31/2018 by Gildardo Downing | | | | | | | | MD Navin at [facility] | | | | | | [...] mi | al/Fam | | 1985 | [phone] | [place] [address] | | | pawel | | | 9 (Home) | | + +--------+ +--------+ + + | Miguelangel Caballero | Worker | Self | [birth year] | | [address] | | mi | s Comp | | 1984 | [phone] | [place] [address] | | | | | | 9 (Home) | | + +--------+ +--------+ + + | Miguelangel Caballero | Worker | Self | [birth year] | | [address] | | mi | s Comp | | 1984 | [phone] | [place] [address] | | | | | | 9 (Home) | | + +--------+ +--------+ + + | Miguelangel Caballero | Worker | Self | [birth year] | | [address] | | mi | s Comp | | 1984 | [phone] | [place] [address] | | | | | | 9 [...]
--- OUTSIDE RECORDS SUMMARY | ~2019-09-13 | XMS | Encounter Summary ---
Demographics + + + | Address | [address] | | | [place] [address] | + + + | Home Phone [...] [place] | | | | | [address] | | + + + + + Care Team Providers + +------+ + | Care Military Lawyer Name | Role | Phone | + [...] | | 2019 | | Center at [facility] [address] | MD [address] | | | | | [address] | [place], [place] | | | | | Mailcode: [place] | [address] | | | | | for Health and | | | | | | [place] [address] | | | | | | [place], [place] | | | | | | [address] | | | | | | | [...] Rd | | | | | | [place], [place] | | | | | | [address] | | | | | | [phone] | | | | | | | | +--------+ + + + + | 09/22/ | Surgery | Surgery | Shu, | RECURRENT VENTRAL | | 2019 | | | MD Bryson [address] | HERNIA REPAIR AND | | | | | [address] | EXCISION OF MESH | | | | | [place], [place] | | | | | | [address] | | | | | | [phone] | | | | | | | | +--------+ + + + + documented as of this encounter Visit Diagnoses Not on filedocumented in this encounter"
--- OUTSIDE RECORDS SUMMARY | ~2019-09-13 | XMS | Encounter Summary ---
Demographics + + + | Address | [address] | | | [place] [address] | + + + | Home Phone [...] [place] | | | | | [address] | | + + + + + Care Team Providers + +------+ + | Care Sour Bleaching Pleater Name | Role | Phone | + [...] | 2018 | Encounter | Center at [facility] [address] | [address] | am | | | | [address] | Jessica Sepulveda [facility], | | | | | Mailcode: Center | [place] [address] | | | | | for Health and | | | | | | Healing, [facility] 2 | | | | | | [place], [place] | | | | | | [address] | | | | | | [phone] | | | +--------+ + + + [...] Rd | | | | | | [place], [place] | | | | | | [address] | | | | | | [phone] | | | | | | | | +--------+ + + + + | 09/22/ | Surgery | Surgery | Shu, | RECURRENT VENTRAL | | 2018 | | | MD Devaughn Massey | HERNIA REPAIR AND | | | | | [address] | EXCISION OF MESH | | | | | [place], [place] | | | | | | [address] | | | | | | [phone] | | | | | | | | +--------+ + + + + documented as of this encounter Visit Diagnoses Not on filedocumented in this encounter"
--- OUTSIDE RECORDS SUMMARY | ~2019-09-13 | XMS | Encounter Summary ---
Demographics + + + | Address | [address] | | | [place] [address] | + + + | Home Phone [...] [place] | | | | | [address] | | + + + + + Care Team Providers + +------+ + | Care Dairy And Food Laboratory Assistant Name | Role | Phone | [...] at [facility] [address] | [facility] [address] | | | | | [address] | [place] [facility] [place] | | | | | Mailcode: Center | [address] | | | | | for Health and | [phone] | | | | | [facility], [address] | | | | | | [place], [place] | | | | | | [address] | | | | | | [phone] | | | +--------+ + + + [...] Rd | | | | | | [place], [place] | | | | | | [address] | | | | | | [phone] | | | | | | | | +--------+ + + + + | 09/22/ | Surgery | Surgery | Shu, | RECURRENT VENTRAL | | 2018 | | | MD Bryson [address] | HERNIA REPAIR AND | | | | | [address] | EXCISION OF MESH | | | | | [place], [place] | | | | | | [address] | | | | | | [phone] | | | | | | | [...]
--- OUTSIDE RECORDS SUMMARY | ~2019-09-13 | XMS | Encounter Summary ---
Demographics + + + | Address | [address] | | | [place] [address] | + + + | Home Phone [...] [place] | | | | | [address] | | + + + + + Care Team Providers + +------+ + | Care Materials Planner Name | Role | Phone | [...] | Center at [address] | MD [address] | | | | | [address] | [place], [place] | | | | | Mailcode: Center | [address] | | | | | for Health and | | | | | | [facility] 2 | | | | | | [place], [place] | | | | | | [address] | | | | | | | [...] | | | | | | [place], [place] | | | | | | [address] | | | | | | [phone] | | | | | | | | +--------+ + + + + | 09/22/ | Surgery | Surgery | Shu, | RECURRENT VENTRAL | | 2018 | | | MD Devaughn Massey | HERNIA REPAIR AND | | | | | [address] | EXCISION OF MESH | | | | | [place], [place] | | | | | | [address] | | | | | | [phone] | | | | | | | | +--------+ + + + + documented as of this encounter Visit Diagnoses Not on filedocumented in this encounter"
--- OUTSIDE RECORDS SUMMARY | ~2019-09-13 | XMS | Encounter Summary ---
Demographics + + + | Address | [address] | | | [place] [address] | + + + | Home Phone [...] [place] | | | | | [address] | | + + + + + Care Team Providers + +------+ + | Care General Internist Name | Role | Phone | + [...] and without | [address] | [address] [place], | | | | | gangrene | Rd | [place] | | | | | Procedures | [facility] [place] | [address] | | | | | REQUEST TO | [address] | Phone: | | | | | SURGERY | Phone: | [phone] | | | | | BRONC BUSTER | [phone] | Fax: | | | | | | Fax: | [phone] | | | | | | [phone] | | +--------+--------+ + + + + [...] with | | 2019 | Visit | [place] at [facility] [address] | MD Yann [address] | obstruction and | | | | [address] | [address] | without gangrene | | | | Mailcode: Center | [place], [place] | (Primary Dx) | | | | for Health and | [address] | | | | | [facility] 2 | [phone] | | | | | [place], [place] | | | | | | [address] | | | | | | [phone] | | | +--------+---------+ + + + [...] 07/06/2019 9:50 AM PDTPATIENT SURGERY INFORMATION [facility] General Surgery Office Toll-free: ext [phone] Surgery Date: Sunday, September 22, [address]: Main [facility] Procedure: recurrent ventral hernia repair, excision [...] ease call the General Surgery Office at [phone] for [id number]. Check-in on the day of surgery is at the Admitting Department located on the 9th floor of [facility]. DIET Nothing to eat or drink after [...] the surgery. Please see the list below, [facility] has a list of products that [...] contact our office . Products Containing Aspirin Ca-Anacoco, Anacin, Anexsia with Codeine, Andynos, Aspirin, Aspirin suppositories, Ascrip tin, Aspergum, Axotal, B-A-C, Baby Aspirin, Nader, BC Powder, Bexophene, Buffaprin, Bufferin , Buffinol, Cama-Arthritis Strength, Congespirin, Paint Rock, Coricidin, Damason, Darvon, Dristan, Rosetta-Gesic, Digel, Dolprin #3 Tablets, Donatab, Doxaphene, Duragesic, Easprin, Ecotrin, Emag rin Forte, Emiprin, Emprazil, Equagesic, Equazine M, Excedrin, Fiogesic, Fiorgen PH, Fiorice t, Fiorinal, 4-Way Cold Tablet, Gemnisyn, Indocin, Liquprin, Lortab ASA, Magnaprin, Marnal, Meprobamate, Midol, Momentum, Norgesic, Limestone, Orphengesic, Pabalate, P-A-C, Percodan, Pre salin, Robaxasil, Roxiprin, Saleto, Salocol, SK-65 Compound, Sine-Aid, Sine-Off, [place], Supac, Talwin Compound, Trigesic, Tolectin, Traiminicin, Vanquish, ZORprin, Zomax Products Containing Ibuprofen Advil, Aleve, Haltran, Medipren, Midol, Motrin, Naproxyn, Nuprin, Rufen Herbal Medications Ephedra: discontinue 24 hours before surgery Garlic: discontinue 7 days prior to surgery Ginkgo: discontinue 36 hours prior to surgery Ginseng: discontinue 7 days prior to surgery Kava: discontinue 24 hours prior to surgery [place] s Wort: discontinue 5 days prior to surgery Valerian: discontinue several weeks prior to surgery Other Products Which May Promote Bleeding Vitamin E, Gingko Biloba, Marine Fatty Acids, [place]-3 Fish Oil Supplement PRE-OP BATHING/SHOWER INSTRUCTIONS with [facility] Bathe or shower the evening [...] actual loss of tissue. Check out the [facility] Quit Line - The Quit Line is open 24 hours a day, seven days a we ek. The Quit Line is a telephone and web-based counseling service to help [place]ians quit us ing tobacco and nicotine products. .QUIT.NOW ( ) or www.quitnow.net/[place] PARKING Parking at the Hospital for patients and visitors is available in the [facility] [employer] s tructure located across from the emergency department. Patient parking is available on level 1 and 3. Metered parking is available on the top level. Parking at [facility] is available in the building's parking structure. For additional parking options visit [email or web address]. TRANSPORTATION You will require transportation home on the day of discharge. Pain medications and physical activity restrictions may limit your ability to drive safely. CANCELLING YOUR PROCEDURE Please notify the general surgery office at [phone] as soon as possible should you nee [...] repair. Her prior surgeries were performed in [place], [place] with Dr. Arthur Kuo. She repor [...] a non-smoker. 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 Can walk greater than 10 blocks, very active with her work . Past Surgical History Procedure Laterality Date Diagnostic laparoscopy 2009 Fallopian tube transection 2012 Ventral hernia repair with mesh 2013 Laparoscopic sleeve gastrectomy 08/31/2018 ILDANIA Downing Past Medical History: Diagnosis Date Anxiety [...] file Gets together: Not on file Attends mu-ism service: Not on file Active member of [...] to inguinal hernia repair. YANN IRELAND MD [facility] CENTER AT [facility] [address] [facility] Mailcode: [place] [address] documented in this encounter Plan [...] [place] | | | | | | [address] | | | | | | [phone] | | | | | | | | +--------+ + + + + | 09/22/ | Surgery | Surgery | Shu, | RECURRENT VENTRAL | | 2018 | | | MD Devaughn Massey | HERNIA REPAIR AND | | | | | [address] | EXCISION OF MESH | | | | | [place] | | | | | | [address] | | | | | | [phone] | | | | | | | | +--------+ + + + + documented as of this encounter Visit Diagnoses + + | Diagnosis | + + | Ventral hernia with obstruction and without gangrene - Primary Ventral hernia, | | unspecified, with obstruction | + + documented in this encounter
--- OUTSIDE RECORDS SUMMARY | ~2019-09-13 | XMS | Encounter Summary ---
Demographics + + + | Address | [address] | | | [place] [address] | + + + | Home Phone [...] + + + + + | Stewart Corebtt | ECON | [address] | | | | | [place] | | | | | [address] | | + + + + + Care Team Providers + +------+ + | Care Bull Driver Name | Role | Phone | [...] | Center at [facility] [address] | MD [address] | (05/10/15 CT A/P) | | | | [address] | [place], [place] | | | | | Mailcode: [place] | [address] | | | | | for Health and | [phone] | | | | | [facility] 2 | | | | | | [place], [place] | | | | | | [address] | | | | | | [phone] | | | +--------+ + + + [...] | | | | | [place], [place] | | | | | | [address] | | | | | | [phone] | | | | | | | | +--------+ + + + + | 09/22/ | Surgery | Surgery | Shu, | RECURRENT VENTRAL | | 2018 | | | MD Devaughn Massey | HERNIA REPAIR AND | | | | | [address] | EXCISION OF MESH | | | | | [place], [place] | | | | | | [address] | | | | | | [phone] | | | | | | | | +--------+ + + + + documented as of this encounter Visit Diagnoses Not on filedocumented in this encounter"
--- OUTSIDE RECORDS SUMMARY | ~2019-09-13 | XMS | Encounter Summary ---
Demographics + + + | Address | [address] | | | [place] [address] | + + + | Home Phone [...] [place] | | | | | [address] | | + + + + + Care Team Providers + +------+ + | Care Furnace Door Tender Name | Role | Phone | [...] at | | | | | | [facility] | | | | | | [address] | | | | | | Mail Code: OC8PM | | | | | | [facility] | | | | | | and Healing, | | | | | | [address] | | | | | | [place], [place] | | | | | | [address] | | | | | | [phone] | | | +--------+ + + + [...] exist, including nicotine patches and gum. The [employer] Quit Line can also be reached at 7Apprenda775ApprendaQUIT.NOW ( ) or online at [email or web address]. Surgery check-in location: [facility] Surgery Check in Time: you will receive a call 1-3 business days before your surgery confi rming your exact arrival/check-in time for your surgery day. We know that planning for surg lyndsay can be stressful and involve a lot of family/friend/transportation coordination as well as hotel arrangements. The [facility] does not have access to check in [facility], and we encourage you to contact [...] ch as Uber/Lyft), or public transportation. An Uber/Lyft/student truck driver does not count as the [...] you and look after you on the [facility] night after you have undergone regional blocks [...] is after office hours, call the [facility] scanner operator at [phone] and ask them to page him or [...] Rd | | | | | | [facility] [place] | | | | | | [address] | | | | | | [phone] | | | | | | | | +--------+ + + + + | 09/22/ | Surgery | Surgery | Shu, | RECURRENT VENTRAL | | 2018 | | | MD Devaughn Massey | HERNIA REPAIR AND | | | | | [address] | EXCISION OF MESH | | | | | [place], [place] | | | | | | [address] | | | | | | [phone] | | | | | | | | +--------+ + + + + documented as of this encounter Visit Diagnoses Not on filedocumented in this encounter
--- OUTSIDE RECORDS SUMMARY | ~2019-09-13 | XMS | Encounter Summary ---
Demographics + + + | Address | [address] | | | [place] [address] | + + + | Home Phone [...] [place] | | | | | [address] | | + + + + + Care Team Providers + +------+ + | Care Precinct Commanding Officer Name | Role | Phone | [...] | | | Procedures | [place], | [address] | | | | | PHYSICAL | [place] | for Health | | | | | THERAPY | [address] | and Healing, | | | | | REFERRAL | Phone: | Building 1, | | | | | | | [address]St Floor | | | | | | Fax: | [place], [place] | | | | | | [phone] | [address] | | | | | | | Phone: | | | | | | | [phone] | | | | | | | Fax: | | | | | | | [phone] | +--------+--------+ + + + + Encounter Details +--------+ + + + + | Date | Type | Department | Care Team | Description | +--------+ + + + + | 10/27/ | Electric Meter Reader | Digestive Health | Marta Simmons, | Morbid obesity (HCC) | | 2018 | | Center at [facility] [address] | AGACNP [address] | (Primary Dx) | | | | [address] | Ave [place], [place] | | | | | Mailcode: Center | [address] | | | | | for Health and | | | | | | Healing, Building 2 | | | | | | [place], [place] | | | | | | [address] | | | | | | [phone] | | | +--------+ + + + [...] Rd | | | | | | [place], [place] | | | | | | [address] | | | | | | [phone] | | | | | | | | +--------+ + + + + | 09/22/ | Surgery | Surgery | Shu, | RECURRENT VENTRAL | | 2018 | | | MD Bryson [address] | HERNIA REPAIR AND | | | | | [address] | EXCISION OF MESH | | | | | [place], [place] | | | | | | [address] | | | | | | [phone] | | | | | | | | +--------+ + + + + documented as of this encounter Visit Diagnoses + + | Diagnosis | + + | Morbid obesity (HCC) - Primary Morbid obesity | + + documented in this encounter"
--- OUTSIDE RECORDS SUMMARY | ~2019-09-13 | XMS | Encounter Summary ---
Demographics + + + | Address | [address] | | | [place] [address] | + + + | Home Phone [...] [place] | | | | | [address] | | + + + + + Care Team Providers + +------+ + | Care General Neurologist Name | Role | Phone | + [...] 2018 | | Center at [facility] 3485 | MD [address] | sided near | | | | [address] | [place], [place] | incision) | | | | Mailcode: Center | [address] | | | | | for Health and | [phone] | | | | | [facility], [facility] 2 | | | | | | [place], [place] | | | | | | [address] | | | | | | [phone] | | | +--------+ + + + [...] [place] | | | | | | [address] | | | | | | [phone] | | | | | | | | +--------+ + + + + | 09/22/ | Surgery | Surgery | Shu, | RECURRENT VENTRAL | | 2018 | | | MD Devaughn Massey | HERNIA REPAIR AND | | | | | [address] | EXCISION OF MESH | | | | | [place] | | | | | | [address] | | | | | | [phone] | | | | | | | | +--------+ + + + + documented as of this encounter Visit Diagnoses Not on filedocumented in this encounter"
--- OUTSIDE RECORDS SUMMARY | ~2019-09-13 | XMS | Encounter Summary ---
Demographics + + + | Address | [address] | | | [place] [address] [...] [place] | | | | | [address] | | + + + + + Care Team Providers + +------+ + | Care Breaker Hand Name | Role | Phone | [...] | | 2017 | | Center at [facility] 3[address] | | Bariatric Surgery | | | | [address] | | | | | | Mailcode: Center | | | | | | for Health and | | | | | | [facility], Building 2 | | | | | | [place], [place] | | | | | | [address] | | | | | | [phone] | | | +--------+ + + + [...] Rd | | | | | | [place], [place] | | | | | | [address] | | | | | | [phone] | | | | | | | | +--------+ + + + + | 09/22/ | Surgery | Surgery | Shu | RECURRENT VENTRAL | | 2019 | | | MD Bryson [address] | HERNIA REPAIR AND | | | | | [address] | EXCISION OF MESH | | | | | [place], [place] | | | | | | [address] | | | | | | [phone] | | | | | | | | +--------+ + + + + documented as of this encounter Visit Diagnoses Not on filedocumented in this encounter"
--- OUTSIDE RECORDS SUMMARY | ~2019-09-13 | XMS | Encounter Summary ---
Demographics + + + | Address | [address] | | | [place] [address] | + + + | Home Phone [...] [place] | | | | | [address] | | + + + + + Care Team Providers + +------+ + | Care Handle Maker Name | Role | Phone | [...] 2019 | | Center at [facility] [address]23 | MD Bry[address] | Worsened | | | | [address] | [facility] Jessica | | | | | Mailcode: Center | [place], [place] | | | | | and | [address] | | | | | [facility], [facility] 2 | [phone] | | | | | [place], [place] | | | | | | [address] | | | | | | [phone] | | | +--------+ + + + [...] Rd | | | | | | [place], [place] | | | | | | [address] | | | | | | [phone] | | | | | | | | +--------+ + + + + | 09/22/ | Surgery | Surgery | Shu, | RECURRENT VENTRAL | | 2018 | | | MD Devaughn Massey | HERNIA REPAIR AND | | | | | [address] | EXCISION OF MESH | | | | | [place], [place] | | | | | | [address] | | | | | | [phone] | | | | | | | | +--------+ + + + + documented as of this encounter Visit Diagnoses Not on filedocumented in this encounter"
--- OUTSIDE RECORDS SUMMARY | ~2019-09-13 | XMS | Encounter Summary ---
Demographics + + + | Address | [address] | | | [place] [address] | + + + | Home Phone [...] [place] | | | | | [address] | | + + + + + Care Team Providers + +------+ + | Care Cash Reconciliation Specialist Name | Role | Phone | [...] | | 2019 | | Center at [facility] 3485 | MD [address] | | | | | [address] | [place], [place] | | | | | Mailcode: [place] | [address] | | | | | for Health and | | | | | | [facility] 2 | | | | | | [place], [place] | | | | | | [address] | | | | | | | [...] Rd | | | | | | [place], [place] | | | | | | [address] | | | | | | [phone] | | | | | | | | +--------+ + + + + | 09/22/ | Surgery | Surgery | Shu, | RECURRENT VENTRAL | | 2019 | | | MD Bryson [address] | HERNIA REPAIR AND | | | | | [address] | EXCISION OF MESH | | | | | [place], [place] | | | | | | [address] | | | | | | [phone] | | | | | | | | +--------+ + + + + documented as of this encounter Visit Diagnoses Not on filedocumented in this encounter"
--- OUTSIDE RECORDS SUMMARY | ~2019-09-13 | XMS | Encounter Summary ---
Demographics + + + | Address | [address] | | | [place] [address] | + + + | Home Phone [...] [place] | | | | | [address] | | + + + + + Care Team Providers + +------+ + | Care Real Estate Administrator Name | Role | Phone | [...] 2018 | Encounter | Center at [facility] [address]704 | | support group | | | | [address] | | | | | | Mailcode: [place] | | | | | | for Health and | | | | | | Healing, Building 2 | | | | | | [place], [place] | | | | | | [address] | | | | | | [phone] | | | +--------+ + + + [...] Rd | | | | | | [place], [place] | | | | | | [address] | | | | | | [phone] | | | | | | | | +--------+ + + + + | 09/22/ | Surgery | Surgery | Shu, | RECURRENT VENTRAL | | 2018 | | | MD Bryson [address] | HERNIA REPAIR AND | | | | | [address] | EXCISION OF MESH | | | | | [place], [place] | | | | | | [address] | | | | | | [phone] | | | | | | | | +--------+ + + + + documented as of this encounter Visit Diagnoses Not on filedocumented in this encounter"
--- OUTSIDE RECORDS SUMMARY | ~2019-09-13 | XMS | Encounter Summary ---
Demographics + + + | Address | [address] | | | [place] [address] | + + + | Home Phone [...] [place] | | | | | [address] | | + + + + + Care Team Providers + +------+ + | Care Supervisor Die Casting Name | Role | Phone | + [...] evaluation | | 2018 | cheduled | [facility] at | | | | | | MPV | | | | | | Stay [address] [facility] | | | | | | [address] | | | | | | Mailcode: UHN65 | | | | | | Redd Atkinson | | | | | | [address] [place], [place] | | | | | | [address] | | | | | | [phone] | | | +--------+ + + + [...] perfume, lotions or powder. Remove any nail niuean from at least one fingernail. Do not [...] your procedure. Surgery Check in Locations Admitting [facility] Surgery Check in Time: Someone from your surgeon's office or [facility] will provide you with information regarding [...] it is after office hours, call the [facility] tool shaper setup operator at [phone] and ask them to page your doc [...] Rd | | | | | | [place], [place] | | | | | | [address] | | | | | | [phone] | | | | | | | | +--------+ + + + + | 09/22/ | Surgery | Surgery | Shu, | RECURRENT VENTRAL | | 2019 | | | MD Bryson [address] | HERNIA REPAIR AND | | | | | [address] | EXCISION OF MESH | | | | | [place], [place] | | | | | | [address] | | | | | | [phone] | | | | | | | | +--------+ + + + + documented as of this encounter Visit Diagnoses Not on filedocumented in this encounter"
--- OUTSIDE RECORDS SUMMARY | ~2019-09-13 | XMS | Encounter Summary ---
Demographics + + + | Address | [address] | | | [place] [address] | + + + | Home Phone [...] [place] | | | | | [address] | | + + + + + Care Team Providers + +------+ + | Care Ships Equipment Engineer Name | Role | Phone | [...] | [facility] | | | with HIGH SCHOOL DIRECTOR | | obesity | Ganesh Holden MD | [facility] [address] | | | | | (HCC) | [address] | | | | | Procedures | [address] | Mailcode: | | | | | CONSULT TO | Jessica Sepulveda | [place] for | | | | | BARIATRIC | [place], [place] | Health and | | | | | SURGERY | [address] | Healing, | | | | | | Phone: | Building 2 | | | | | | [phone] | [place], [place] | | | | | | Fax: | [address] | | | | | | [phone] | Phone: | | | | | | | [phone] | | | | | | | Fax: | | | | | | | [phone] | + + + + + + [...] | | [address] | [facility] [place] | adult (HCC) (Primary | | | | Mailcode: Center | [address] | Dx); Essential | | | | for Health and | [phone] | hypertension; | | | | Healing, Building 2 | | Ventral hernia with | | | | [place], [place] | | obstruction and | | | | [address] | | without gangrene | | | | [phone] | | | +--------+---------+ + + + [...] 06/16/2018 9:20 AM PDTPlease visit with our [facility] Driller'S Assistant (RD) for instructions about your Bariatric diet, assistance with calorie c ounts, tips and tricks for working with your diet restrictions, and recipes after bariatric surgery. Daily yogurt; even just 1 tablespoon twice a day will provide enough probiotics to optimize digestion. Try to use a high-quality, probiotic-dense yogurt (eg Marielena's, Marcello, Enrico Smith, Development Mgr Dom's Portuguese Yogurt). Remember to chew your food well, [...] to the healing stomach. There are also nursing home complications of poor wound healing and gastric [...] a 4-5% rate of reoperation over the terminal press operator (i.e. years), as well as other [...] and may approach 5%. We reviewed the [facility] consent form. We discussed that [...] [place] | | | | | | [address] | | | | | | [phone] | | | | | | | | +--------+ + + + + | 09/22/ | Surgery | Surgery | Shu, | RECURRENT VENTRAL | | 2018 | | | MD Bryson [address] | HERNIA REPAIR AND | | | | | [address] | EXCISION OF MESH | | | | | [place], [place] | | | | | | [address] | | | | | | [phone] | | | | | | | [...]
--- OUTSIDE RECORDS SUMMARY | ~2019-09-13 | XMS | Encounter Summary ---
Demographics + + + | Address | [address] | | | [place] [address] | + + + | Home Phone [...] [place] | | | | | [address] | | + + + + + Care Team Providers + +------+ + | Care Blow Torch Burner Name | Role | Phone | + +------+ + | Aleshia Martinez PA-C | PCP | | + +------+ + Encounter Details +--------+ + + + + | Date | Type | Department | Care Team | Description | +--------+ + + + + | 06/23/ | Abstract | Digestive Health | Clinic, Surgery | | | 2017 | | [place] [facility] [address] | | | | | | [address] | | | | | | Mailcode: [place] | | | | | | for Health and | | | | | | Healing, Building 2 | | | | | | [place], [place] | | | | | | [address] | | | | | | [phone] | | | +--------+ + + + [...] Rd | | | | | | [place], [place] | | | | | | [address] | | | | | | [phone] | | | | | | | | +--------+ + + + + | 09/22/ | Surgery | Surgery | [place], | RECURRENT VENTRAL | | 2019 | | | MD Bryson [address] | HERNIA REPAIR AND | | | | | [address] | EXCISION OF MESH | | | | | [place], [place] | | | | | | [address] | | | | | | [phone] | | | | | | | | +--------+ + + + + documented as of this encounter Visit Diagnoses Not on filedocumented in this encounter"
--- OUTSIDE RECORDS SUMMARY | ~2019-09-13 | XMS | Encounter Summary ---
Demographics + + + | Address | [address] | | | [place] [address] | + + + | Home Phone [...] [place] | | | | | [address] | | + + + + + Care Team Providers + +------+ + | Care Ip Network Architect Name | Role | Phone | [...] Pharmacy | | | | | | [address] | | | | | | Jessica Sepulveda [place], | | | | | | [place] [address] | | | | | | [phone] | | | +--------+ + + + [...] Rd | | | | | | [place], [place] | | | | | | [address] | | | | | | [phone] | | | | | | | | +--------+ + + + + | 09/22/ | Surgery | Surgery | Shu, | RECURRENT VENTRAL | | 2018 | | | MD Bryson [address] | HERNIA REPAIR AND | | | | | [address] | EXCISION OF MESH | | | | | [place], [place] | | | | | | [address] | | | | | | [phone] | | | | | | | | +--------+ + + + + documented as of this encounter Visit Diagnoses Not on filedocumented in this encounter"
--- OUTSIDE RECORDS SUMMARY | ~2019-09-13 | XMS | Encounter Summary ---
Demographics + + + | Address | [address] | | | [place] [address] | + + + | Home Phone [...] [place] | | | | | [address] | | + + + + + Care Team Providers + +------+ + | Care Grass Farmer Name | Role | Phone | + [...] | | | | | | [facility] [place] | | | | | | [address] | | | | | | [phone] | | | | | | | | +--------+ + + + + | 09/22/ | Surgery | Surgery | Shu, | RECURRENT VENTRAL | | 2018 | | | MD Devaughn Massey | HERNIA REPAIR AND | | | | | [address] | EXCISION OF MESH | | | | | [place], [place] | | | | | | [address] | | | | | | [phone] | | | | | | | | +--------+ + + + + documented as of this encounter Visit Diagnoses Not on filedocumented in this encounter"
--- OUTSIDE RECORDS SUMMARY | ~2019-09-13 | XMS | Encounter Summary ---
Demographics + + + | Address | [address] | | | [place] [address] | + + + | Home Phone [...] [place] | | | | | [address] | | + + + + + Care Team Providers + +------+ + | Care Instrumental Music Teacher Name | Role | Phone | [...] | History of | [place], | [place], | | | | | abdominal | [place] | [place] | | | | | surgery | [address] | [address] | | | | | Recurrent | Phone: | Phone: | | | | | ventral | | [phone] | | | | | hernia | Fax: | Fax: | | | | | Abdominal | [phone] | [phone] | | | | | pain, | [...] 2019 | Encounter | Center at [facility] [address] | AGACNP [address] | | | | | [address] | Ave [place], [place] | | | | | Mailcode: Center | [address] | | | | | for Health and | | | | | | [facility] 2 | | | | | | [place], [place] | | | | | | [address] | | | | | | | [...] | | | | | | [facility] [place] | | | | | | [address] | | | | | | [phone] | | | | | | | | +--------+ + + + + | 09/22/ | Surgery | Surgery | Shu, | RECURRENT VENTRAL | | 2018 | | | MD Bryson [address] | HERNIA REPAIR AND | | | | | [address] | EXCISION OF MESH | | | | | [place], [place] | | | | | | [address] | | | | | | [phone] | | | | | | | [...]
--- OUTSIDE RECORDS SUMMARY | ~2019-09-13 | XMS | Encounter Summary ---
Demographics + + + | Address | [address] | | | [place] [address] | + + + | Home Phone [...] | + + + + + | Setwart Corbett | ECON | [address] | | | | | [place] | | | | | [address] | | + + + + + Care Team Providers + +------+ + | Care Wastewater Treatment Plant Operator Name | Role | Phone | [...] Rd | | | | | | [facility] [place] | | | | | | [address] | | | | | | [phone] | | | | | | | | +--------+ + + + + | 09/22/ | Surgery | Surgery | Shu, | RECURRENT VENTRAL | | 2018 | | | MD Devaughn Massey | HERNIA REPAIR AND | | | | | [address] | EXCISION OF MESH | | | | | [place], [place] | | | | | | [address] | | | | | | [phone] | | | | | | | | +--------+ + + + + documented as of this encounter Visit Diagnoses Not on filedocumented in this encounter"
--- OUTSIDE RECORDS SUMMARY | ~2019-09-13 | XMS | Encounter Summary ---
Demographics + + + | Address | [address] | | | [place] [address] | + + + | Home Phone [...] [place] | | | | | [address] | | + + + + + Care Team Providers + +------+ + | Care Mainspring Former Name | Role | Phone | + [...] | History of | [place], | Derick [place], | | | | | abdominal | [place] | [place] | | | | | surgery | [address] | [address] | | | | | Recurrent | Phone: | Phone: | | | | | ventral | | [phone] | | | | | hernia | Fax: | Fax: | | | | | Abdominal | [phone] | [phone] | | | | | pain, | [...] 2019 | Encounter | Center at [facility] [address] | AGACNP [address] | | | | | [address] | Ave [place], [place] | | | | | Mailcode: Center | [address] | | | | | for Health and | | | | | | [facility] 2 | | | | | | [place], [place] | | | | | | [address] | | | | | | | [...] Rd | | | | | | [facility] [place] | | | | | | [address] | | | | | | [phone] | | | | | | | | +--------+ + + + + | 09/22/ | Surgery | Surgery | Shu, | RECURRENT VENTRAL | | 2018 | | | MD Bryson [address] | HERNIA REPAIR AND | | | | | [address] | EXCISION OF MESH | | | | | [place], [place] | | | | | | [address] | | | | | | [phone] | | | | | | | [...]
--- OUTSIDE RECORDS SUMMARY | ~2019-09-13 | XMS | Encounter Summary ---
Demographics + + + | Address | [address] | | | [place] [address] | + + + | Home Phone [...] [place] | | | | | [address] | | + + + + + Care Team Providers + +------+ + | Care Welding Technician Name | Role | Phone | [...] [address] | | | | | ([facility]) | [address] | Jessica Sepulveda | | | | | Procedures | [address] | Physician's | | | | | CONSULT TO | Jessica Sepulveda | [place], | | | | | HEALTH | [place], [place] | [address] | | | | | PROMOTION & | [address] | [place], [place] | | | | | SPORTS | Phone: | [address] | | | | | MEDICINE | [phone] | Phone: | | | | | PROVIDER | Fax: | [phone] | | | | | | [phone] | Fax: | | | | | | | [phone] | +--------+--------+ + + + + Consultation [...] | [facility] | | | with TECHNICAL PRODUCT MANAGER | | obesity | Ganesh Holden MD | [facility] 8575 | | | | | ([facility]) | [address] | [address] | | | | | Procedures | [address] | Mailcode: | | | | | CONSULT TO | Jessica Sepulveda | Center for | | | | | BARIATRIC | [place], [place] | Health and | | | | | SURGERY | [address] | Healing, | | | | | | Phone: | Building 2 | | | | | | [phone] | [place], [place] | | | | | | Fax: | [address] | | | | | | [phone] | Phone: | | | | | | | [phone] | | | | | | | Fax: | | | | | | | [phone] | + + + + + + [...] | | | | | | | [place], [place] | | | | | | | [address] | | | | | | | Phone: | | | | | | | [phone] | | | | | | | Fax: | | | | | | | [phone] | +--------+--------+ + + + + Encounter Details +--------+---------+ + + + | Date | Type | Department | Care Team | Description | +--------+---------+ + + + | 08/18/ | Office | Digestive Health | Darryl Bingham W, | Morbid obesity (HCC) | | 2017 | Visit | Center at [facility] [address] | MD [address] | (Primary Dx) | | | | [address] | [facility] [place] | | | | | Mailcode: Center | [address] | | | | | for Health and | [phone] | | | | | Healing, Building [address] | | | | | | [place], [place] | | | | | | [address] | | | | | | [phone] | | | +--------+---------+ + + + [...] routine activity as tolerated. Darryl Bingham MD, [facility], FACS DARRYL BINGHAM MD [facility] 6TH FLOOR [address] Mailcode: [place] [address] PATRAToSe cesar Pineda MD - 08/18/2017 12:30 PM PDTFormatting of this note might be different from the orig inal. [facility] Department of Surgery Blue Surgery H&P [...] her risk of complications is 35% (per Student Loan Hero connie). She is interested to talk to [...] constipation -referral with bariatric program -referral to furrier apprentice -RTC once she has lost weight The above findings and plan were discussed with Dr. Bingham, who agrees. Ganesh Perez MD Minimally Invasive Surgery Fellow [facility] [place] Pager [phone] documente d in this encounter Plan of [...] Rd | | | | | | [place], [place] | | | | | | [address] | | | | | | [phone] | | | | | | | | +--------+ + + + + | 09/22/ | Surgery | Surgery | Shu, | RECURRENT VENTRAL | | 2018 | | | MD Devaughn Massey | HERNIA REPAIR AND | | | | | [address] | EXCISION OF MESH | | | | | [place], [place] | | | | | | [address] | | | | | | [phone] | | | | | | | | +--------+ + + + + documented as of this encounter Visit Diagnoses + + | Diagnosis | + + | Morbid obesity (HCC) - Primary Morbid obesity | + + documented in this encounter
--- OUTSIDE RECORDS SUMMARY | ~2019-09-13 | XMS | Encounter Summary ---
Demographics + + + | Address | [address] | | | [place] [address] | + + + | Home Phone [...] [place] | | | | | [address] | | + + + + + Care Team Providers + +------+ + | Care Waiter/Waitress Counter Name | Role | Phone | + [...] Event | Medicine Clinic at | RN [place], [place] | | | | | [facility] | [address] | | | | | [address] | | | | | | Mail Code: OC8PM | | | | | | [facility] | | | | | | and Healing, | | | | | | Building [address] | | | | | | [place], [place] | | | | | | [address] | | | | | | [phone] | | | +--------+ + + + [...] Rd | | | | | | [place], [place] | | | | | | [address] | | | | | | [phone] | | | | | | | | +--------+ + + + + | 09/22/ | Surgery | Surgery | Shu, | RECURRENT VENTRAL | | 2018 | | | MD Devaughn Massey | HERNIA REPAIR AND | | | | | [address] | EXCISION OF MESH | | | | | [place], [place] | | | | | | [address] | | | | | | [phone] | | | | | | | | +--------+ + + + + documented as of this encounter Visit Diagnoses Not on filedocumented in this encounter"
--- OUTSIDE RECORDS SUMMARY | ~2019-09-13 | XMS | Encounter Summary ---
Demographics + + + | Address | [address] | | | [place] [address] | + + + | Home Phone [...] [place] | | | | | [address] | | + + + + + Care Team Providers + +------+ + | Care Cash Crop Farmer Name | Role | Phone | [...] | | | [address] | [place], [place] | | | | | Mailcode: [place] | [phone] | | | | | for Health and | [phone] | | | | | [facility], [place] [address] | | | | | | [facility] [place] | | | | | | [address] | | | | | | [phone] | | | +--------+ + + + [...] [address] | | | | | | [place], [place] | | | | | | [address] | | | | | | [phone] | | | | | | | | +--------+ + + + + | 09/22/ | Surgery | Surgery | Shu, | RECURRENT VENTRAL | | 2018 | | | MD Devaughn Massey | HERNIA REPAIR AND | | | | | [address] | EXCISION OF MESH | | | | | [place], [place] | | | | | | [address] | | | | | | [phone] | | | | | | | | +--------+ + + + + documented as of this encounter Visit Diagnoses Not on filedocumented in this encounter"
--- OUTSIDE RECORDS SUMMARY | ~2019-09-13 | XMS | Encounter Summary ---
Demographics + + + | Address | [address] | | | [place] [address] | + + + | Home Phone [...] [place] | | | | | [address] | | + + + + + Care Team Providers + +------+ + | Care Airfield Operations Specialist Name | Role | Phone | [...] | | | or gangrene | | [place] [facility] | | | | | | | Health and | | | | | | | Healing, | | | | | | | [address] | | | | | | | [place], [place] | | | | | | | [address] | | | | | | | Phone: | | | | | | | [phone] | | | | | | | Fax: | | | | | | | [phone] | + +--------+ + + + + Encounter Details +--------+---------+ + + + | Date | Type | Department | Care Team | Description | +--------+---------+ + + + | 01/06/ | Office | Digestive Health | Chetna Alves, RD | Morbid obesity with | | 2018 | Visit | Center at [facility] | [address] | BMI of 40.0-44.9, | | | | [address] | [address] [place], | adult (HCC) (Primary | | | | Mailcode: Center | [place] [address] | Dx); Ventral hernia | | | | for Health and | | with obstruction | | | | Healing, [address] | | and without | | | | [place], [place] | | gangrene; Borderline | | | | [address] | | diabetes | | | | [phone] | | | +--------+---------+ + + + [...] of Visit: 3:10 until 4:00 (50 minutes [id number] with patient) SUBJECTIVE: Pt comes in alone [...] or dr ink water. Has been doing 3Leaf. Says she is alone a lot. Weight exchange trouble shooter the past year: trying to lose Previous [...] of toast, bowl of cereal, granola + peruvian yogu rt Lunch: leftovers (because she is [...] 2 pre-surgery classes. 4. Call or send Plickers message to dietitian with any questions. Contact information was provided. Follow up with dietitian 1-2 weeks after surgery at first post-op visit. Chetna Alves RD, [facility], LD [facility] Bariatrics [phone] documented in this enco unter Plan of [...] Rd | | | | | | [place], [place] | | | | | | [address] | | | | | | [phone] | | | | | | | | +--------+ + + + + | 09/22/ | Surgery | Surgery | Shu, | RECURRENT VENTRAL | | 2018 | | | MD Devaughn Massey | HERNIA REPAIR AND | | | | | [address] | EXCISION OF MESH | | | | | [place], [place] | | | | | | [address] | | | | | | [phone] | | | | | | | [...]
--- OUTSIDE RECORDS SUMMARY | ~2019-09-13 | XMS | Encounter Summary ---
Demographics + + + | Address | [address] | | | [place] [address] | + + + | Home Phone [...] [place] | | | | | [address] | | + + + + + Care Team Providers + +------+ + | Care Checkering Machine Adjuster Name | Role | Phone | [...] | 2018 | cheduled | [facility] at | | | | | | MPV | | | | | | Stay [address] [facility] | | | | | | [address] | | | | | | Mailcode: [id number] | | | | | | Redd Atkinson | | | | | | [address] [place], [place] | | | | | | [address] | | | | | | [phone] | | | +--------+ + + + [...] perfume, lotions or powder. Remove any nail venezuelan from at least one fingernail. Do not [...] your procedure. Surgery Check in Locations Admitting [facility] Surgery Check in Time: Someone from your surgeon's office or [facility] will provide you with information [...] it is after office hours, call the [facility] thermit welding machine operator at [phone] and ask them to page your doc [...] Rd | | | | | | [place], [place] | | | | | | [address] | | | | | | [phone] | | | | | | | | +--------+ + + + + | 09/22/ | Surgery | Surgery | Shu, | RECURRENT VENTRAL | | 2019 | | | MD Bryson [address] | HERNIA REPAIR AND | | | | | [address] | EXCISION OF MESH | | | | | [place], [place] | | | | | | [address] | | | | | | [phone] | | | | | | | | +--------+ + + + + documented as of this encounter Visit Diagnoses Not on filedocumented in this encounter"
--- OUTSIDE RECORDS SUMMARY | ~2019-09-13 | XMS | Encounter Summary ---
Demographics + + + | Address | [address] | | | [place] [address] | + + + | Home Phone [...] [place] | | | | | [address] | | + + + + + Care Team Providers + +------+ + | Care Controller [place] Name | Role | Phone | + [...] at | | | | | | [facility] | | | | | | [address] | | | | | | Mail Code: OC8PM | | | | | | [facility] | | | | | | and Healing, | | | | | | [address] | | | | | | [place], [place] | | | | | | [address] | | | | | | [phone] | | | +--------+ + + + [...] exist, including nicotine patches and gum. The AudioBeta Quit Line can also be reached at [email or web address] ( ) or online at [email or web address]. Surgery check-in location: [facility] Surgery Check in Time: you will receive a call 1-3 business days before your surgery confi rming your exact arrival/check-in time for your surgery day. We know that planning for surg lyndsay can be stressful and involve a lot of family/friend/transportation coordination as well as hotel arrangements. The [facility] does not have access to check in [facility], and we encourage you to contact your [...] ch as Uber/Lyft), or public transportation. An Uber/Lyft/backhaul driver does not count as the responsible [...] you and look after you on the [facility] night after you have undergone regional blocks [...] hours, call the [facility] crown ironer operator at [phone] and ask them to page him or [...] Rd | | | | | | [facility] [place] | | | | | | [address] | | | | | | [phone] | | | | | | | | +--------+ + + + + | 09/22/ | Surgery | Surgery | Shu, | RECURRENT VENTRAL | | 2018 | | | MD Devaughn Massey | HERNIA REPAIR AND | | | | | [address] | EXCISION OF MESH | | | | | [place], [place] | | | | | | [address] | | | | | | [phone] | | | | | | | | +--------+ + + + + documented as of this encounter Visit Diagnoses Not on filedocumented in this encounter
--- OUTSIDE RECORDS SUMMARY | ~2019-09-13 | XMS | Encounter Summary ---
Demographics + + + | Address | [address] | | | [place] [address] | + + + | Home Phone [...] [place] | | | | | [address] | | + + + + + Care Team Providers + +------+ + | Care Feed Mixer Helper Name | Role | Phone | [...] LAPAROSCOPIC SLEEVE | | 2017 | | [facility] | [address] | GASTRECTOMY with EGD | | | | Admitting Desk | [place], [place] | | | | | Located on the | [address] | | | | | floor [address] [facility] | [phone] | | | | | [facility] | | | | | | [place], [place] | | | | | | [address] | | | +--------+---------+ + + + [...] might be differen t from the original. [facility] RED SURGERY INPATIENT DISCHARGE SUMMARY Author: GAUTAM [...] or Kefir, Stoneyfield Yogurt, and Chioban i Danish Yogurt are common brands with beneficial probiotics. [...] are available over the counter at most [facility] [employer] stores. Nausea/Vomiting/Difficulty Swallowing Nausea/Vomiting/Difficulty swallowing: Could be [...] hours per your instructions. Some medications, like Leroy, have Tylenol in it. Make sure you [...] (PCP) as this clinic does not provide [facility] chronic pain management services. When to Call [...] hours by calling the surgery office at [phone]. - After hours, weekends and holidays, you may call the hospital slasher operator at [phone] an d have the consumer product advisor Red Surgery Team paged. Destination Home Condition [...] Acute Care Why: follow up with bariatric BALER OPERATOR Contact information [address] [facility] [address] Future Appointments Provider Department Dept Phone Center 09/07/2018 10:00 AM Chetna Alves Digestive [facility] 6th Floor [phone] KAITA D AND NUT 09/07/2018 10:50 AM Emily Martinez Digestive [facility] 6th Floor [phone] D ig Health 09/29/2018 10:30 AM Tea Reece Digestive [facility] 6th Floor [phone] F OOD AND NUT 09/29/2018 11:20 AM Gildardo Downing Digestive [facility] at [facility] 6th Floor [phone] Di g Health 11/25/2018 10:00 AM Tea Reece [facility] at [facility] 6th Floor [phone] FO OD AND NUT 11/25/2018 10:50 AM Shanon Etienne Digestive [facility] at [facility] 6th Floor [phone] Dig [facility] Discharging Physician: GAUTAM Leblanc Attending Physician: Gildardo Downing MD [facility] Red Surgery Pager# [phone] 10:42 AM 09/02/2018 documented in th is [...] if this helps. Gildardo Downing MD, FACS, [facility] Division of Bariatric Surgery [facility] | [address] | [place], [place] | [address] | Ludwin Tellez MD - 08/31/2018 8:54 [...] Ludwin Tellez MD General Surgery, PGY1 Pager: [phone] documented in this en counter Plan of [...] Rd | | | | | | [place], [place] | | | | | | [address] | | | | | | [phone] | | | | | | | | +--------+ + + + + | 09/22/ | Surgery | Surgery | Shu, | RECURRENT VENTRAL | | 2019 | | | MD Bryson [address] | HERNIA REPAIR AND | | | | | [address] | EXCISION OF MESH | | | | | [place], [place] | | | | | | [address] | | | | | | [phone] | | | | | | | [...] GASTRECTOMY | ve | 12:25 PM | ([facility]) | | | | Surgic | PST [...] DEPT OF | [address] | [place], [place] | | | CARDIOLOGY | [address] | [address] | | + + + + + [...] ABDI | [address] | [place], [place] | | | [facility] | [address] | [address] | | | TESTS | | | [...] + | ISRAELDANIA Lopez [address] | [address] [facility] [address] | [place], [place] | | | SHOALS [facility] | [address] | [address] | | | TESTS | | | [...] SURGEON: Gildardo Downing MD. | | | ASBESTOS HANDLER: Jamie Gonzales MD R6. ANESTHESIA: Ke Strong [...] SURGEON: Gildardo Downing MD. | | | ASBESTOS HANDLER: Jamie Gonzales MD R6. ANESTHESIA: eK Strong MD, | | | Miky Garrido [...] | + + + + + | ISREALDANIA John TARSHAHANDYMARTY | [address] | [place], [place] | | | CHARITO [facility] | [address] | [address] | | | TESTS | | | [...] | | | | | dose on [facility] 09/01/18 at 0900, | | AM PST [...]
--- OUTSIDE RECORDS SUMMARY | ~2019-09-13 | XMS | Encounter Summary ---
Demographics + + + | Address | [address] | | | [place] [address] | + + + | Home Phone [...] [place] | | | | | [address] | | + + + + + Care Team Providers + +------+ + | Care Controls Project Engineer Name | Role | Phone | [...] | | 2018 | | Center at [facility] [address] | MD [address] | scheduling, possible | | | | [address] | [place], [place] | GERD symptoms) | | | | Mailcode: [place] | [address] | | | | | for Health and | | | | | | [facility] 2 | | | | | | [place], [place] | | | | | | [address] | | | | | | | [...] | | | [facility] [place] | | | | | | [address] | | | | | | [phone] | | | | | | | | +--------+ + + + + | 09/22/ | Surgery | Surgery | Shu, | RECURRENT VENTRAL | | 2018 | | | MD Devaughn Massey | HERNIA REPAIR AND | | | | | [address] | EXCISION OF MESH | | | | | [place], [place] | | | | | | [address] | | | | | | [phone] | | | | | | | | +--------+ + + + + documented as of this encounter Visit Diagnoses Not on filedocumented in this encounter"
--- OUTSIDE RECORDS SUMMARY | ~2019-09-13 | XMS | Encounter Summary ---
Demographics + + + | Address | [address] | | | [place] [address] | + + + | Home Phone [...] [place] | | | | | [address] | | + + + + + Care Team Providers + +------+ + | Care Electric Locomotive Firer/Fireman Name | Role | Phone | + [...] 2018 | Visit | Center at [facility] [address] | MD [address] | surgery (Primary | | | | [address] | [facility], [place] | Dx); S/P | | | | Mailcode: Center | [address] | laparoscopic sleeve | | | | for Health and | [phone] | gastrectomy | | | | Healing, [address] | | | | | | [place], [place] | | | | | | [address] | | | | | | [phone] | | | +--------+---------+ + + + [...] can be adjusted. Please visit with our Six Sigma Black Trainer (RD) for instructions about your Bariatric diet, assistance with calorie counts, tips and tricks for working with your diet restrictions, an d recipes after bariatric surgery. Daily yogurt; even just 1 tablespoon twice a day will provide enough probiotics to optimize digestion. Try to use a high-quality, probiotic-dense yogurt (eg Marielena's, Stoneyfield, Lif eway Kefir, Retoucher Photoengraving Dom's Occitan Yogurt). Remember to chew your food well, [...] GILDARDO DOWNING MD. Division of Bariatric Surgery [facility] | [address] | [place], [place] | [address] | documented in this en counter Plan [...] Rd | | | | | | [place], [place] | | | | | | [address] | | | | | | [phone] | | | | | | | | +--------+ + + + + | 09/22/ | Surgery | Surgery | Shu, | RECURRENT VENTRAL | | 2018 | | | MD Devaughn Massey | HERNIA REPAIR AND | | | | | [address] | EXCISION OF MESH | | | | | [place], [place] | | | | | | [address] | | | | | | [phone] | | | | | | | | +--------+ + + + + documented as of this encounter Visit Diagnoses + + | Diagnosis | + + | Aftercare following surgery - Primary Encounter for other specified aftercare | + + | S/P laparoscopic sleeve gastrectomy | + + documented in this encounter
--- OUTSIDE RECORDS SUMMARY | ~2019-09-13 | XMS | Encounter Summary ---
Demographics + + + | Address | [address] | | | [place] [address] | + + + | Home Phone [...] [place] | | | | | [address] | | + + + + + Care Team Providers + +------+ + | Care Blind Aide Name | Role | Phone | [...] | 2019 | | Center at [facility] [address] | MD [address] | | | | | [address] | [place], [place] | | | | | Mailcode: [place] | [address] | | | | | for Health and | | | | | | [place] [address] | | | | | | [place], [place] | | | | | | [address] | | | | | | | [...] Rd | | | | | | [place], [place] | | | | | | [address] | | | | | | [phone] | | | | | | | | +--------+ + + + + | 09/22/ | Surgery | Surgery | Shu, | RECURRENT VENTRAL | | 2019 | | | MD Bryson [address] | HERNIA REPAIR AND | | | | | [address] | EXCISION OF MESH | | | | | [place], [place] | | | | | | [address] | | | | | | [phone] | | | | | | | | +--------+ + + + + documented as of this encounter Visit Diagnoses Not on filedocumented in this encounter"
--- OUTSIDE RECORDS SUMMARY | ~2019-09-13 | XMS | Encounter Summary ---
Demographics + + + | Address | [address] | | | [place] [address] | + + + | Home Phone [...] [place] | | | | | [address] | | + + + + + Care Team Providers + +------+ + | Care Forming Mill Operator Name | Role | Phone | [...] 2017 | Encounter | Center at [facility] [address] | MD [address] | Acid reflux | | | | [address] | [place], [place] | | | | | Mailcode: Center | [address] | | | | | for Health and | | | | | | [facility] 2 | | | | | | [place], [place] | | | | | | [address] | | | | | | | [...] [place] | | | | | | [address] | | | | | | [phone] | | | | | | | | +--------+ + + + + | 09/22/ | Surgery | Surgery | Shu, | RECURRENT VENTRAL | | 2018 | | | MD Devaughn Massey | HERNIA REPAIR AND | | | | | [address] | EXCISION OF MESH | | | | | [place], [place] | | | | | | [address] | | | | | | [phone] | | | | | | | | +--------+ + + + + documented as of this encounter Visit Diagnoses Not on filedocumented in this encounter"
--- OUTSIDE RECORDS SUMMARY | ~2019-09-13 | XMS | Encounter Summary ---
Demographics + + + | Address | [address] | | | [place] [address] | + + + | Home Phone [...] [place] | | | | | [address] | | + + + + + Care Team Providers + +------+ + | Care Cyber Intel Planner Name | Role | Phone | + +------+ + | Aleshia Martinez PA-C | PCP | | + +------+ + Encounter Details +--------+ + + + + | Date | Type | Department | Care Team | Description | +--------+ + + + + | 08/31/ | Procedure | 6A Intra Op [facility] | | | | 2018 | Pass | [facility] | | | | | | Admitting Desk | | | | | | Located on the 9th | | | | | | floor [address] [facility] | | | | | | [address] | | | | | | [place], [place] | | | | | | [address] | | | +--------+ + + + [...] Rd | | | | | | [place], [place] | | | | | | [address] | | | | | | [phone] | | | | | | | | +--------+ + + + + | 09/22/ | Surgery | Surgery | Shu, | RECURRENT VENTRAL | | 2019 | | | MD Bryson [address] | HERNIA REPAIR AND | | | | | [address] | EXCISION OF MESH | | | | | [place], [place] | | | | | | [address] | | | | | | [phone] | | | | | | | | +--------+ + + + + documented as of this encounter Visit Diagnoses Not on filedocumented in this encounter"
--- OUTSIDE RECORDS SUMMARY | ~2019-09-13 | XMS | Encounter Summary ---
Demographics + + + | Address | [address] | | | [place] [address] | + + + | Home Phone [...] [place] | | | | | [address] | | + + + + + Care Team Providers + +------+ + | Care Wrapper Sorter Name | Role | Phone | [...] | | | [address] | [place], [place] | | | | | Mailcode: [place] | [address] | | | | | for Health and | [phone] | | | | | [facility] [place] [address] | | | | | | [facility] [place] | | | | | | [address] | | | | | | [phone] | | | +--------+ + + + [...] Rd | | | | | | [place], [place] | | | | | | [address] | | | | | | [phone] | | | | | | | | +--------+ + + + + | 09/22/ | Surgery | Surgery | Shu, | RECURRENT VENTRAL | | 2018 | | | MD Devaughn Massey | HERNIA REPAIR AND | | | | | [address] | EXCISION OF MESH | | | | | [place], [place] | | | | | | [address] | | | | | | [phone] | | | | | | | | +--------+ + + + + documented as of this encounter Visit Diagnoses Not on filedocumented in this encounter"
--- OUTSIDE RECORDS SUMMARY | ~2019-09-13 | XMS | Encounter Summary ---
Demographics + + + | Address | [address] | | | [place] [address] | + + + | Home Phone [...] [place] | | | | | [address] | | + + + + + Care Team Providers + +------+ + | Care Hospital Nurse Name | Role | Phone | + +------+ + | Aleshia Martinez PA-C | PCP | | + +------+ + Encounter Details +--------+ + + + + | Date | Type | Department | Care Team | Description | +--------+ + + + + | 07/01/ | Telephone | Digestive Health | Gildardo Downing, | | | 2017 | | Center at [facility] [address] | [address] | | | | | [address] | [facility] [place] | | | | | Mailcode: Center | [address] | | | | | for Health and | [phone] | | | | | [facility], [address] | | | | | | [place], [place] | | | | | | [address] | | | | | | [phone] | | | +--------+ + + + [...] Rd | | | | | | [place], [place] | | | | | | [address] | | | | | | [phone] | | | | | | | | +--------+ + + + + | 09/22/ | Surgery | Surgery | Shu, | RECURRENT VENTRAL | | 2018 | | | MD Bryson [address] | HERNIA REPAIR AND | | | | | [address] | EXCISION OF MESH | | | | | [place], [place] | | | | | | [address] | | | | | | [phone] | | | | | | | | +--------+ + + + + documented as of this encounter Visit Diagnoses Not on filedocumented in this encounter"
--- OUTSIDE RECORDS SUMMARY | ~2019-09-13 | XMS | Encounter Summary ---
Demographics + + + | Address | [address] | | | [place] [address] | + + + | Home Phone [...] [place] | | | | | [address] | | + + + + + Care Team Providers + +------+ + | Care Safety Lamp Keeper Name | Role | Phone | [...] | | 2016 | anned | Services [address] | | | | | | [address] | | | | | | Mailcode: [id number] | | | | | | [facility] | | | | | | [place], [place] | | | | | | [address] | | | | | | [phone] | | | +--------+ + + + [...] [place] | | | | | | [address] | | | | | | [phone] | | | | | | | | +--------+ + + + + | 09/22/ | Surgery | Surgery | Shu, | RECURRENT VENTRAL | | 2018 | | | MD Bryson [address] | HERNIA REPAIR AND | | | | | [address] | EXCISION OF MESH | | | | | [facility] [place] | | | | | | [address] | | | | | | [phone] | | | | | | | [...]
--- OUTSIDE RECORDS SUMMARY | ~2019-09-13 | XMS | Encounter Summary ---
Demographics + + + | Address | [address] | | | [place] [address] | + + + | Home Phone [...] [place] | | | | | [address] | | + + + + + Care Team Providers + +------+ + | Care Server Software Engineer Name | Role | Phone | [...] | 2017 | Encounter | Center at [facility] [address] | | denial | | | | [address] | | | | | | Mailcode: Center | | | | | | for Health and | | | | | | Healing, [address] | | | | | | [place], [place] | | | | | | [address] | | | | | | [phone] | | | +--------+ + + + [...] Rd | | | | | | [place], [place] | | | | | | [address] | | | | | | [phone] | | | | | | | | +--------+ + + + + | 09/22/ | Surgery | Surgery | Shu, | RECURRENT VENTRAL | | 2019 | | | MD Bryson [address] | HERNIA REPAIR AND | | | | | [address] | EXCISION OF MESH | | | | | [place] | | | | | | [address] | | | | | | [phone] | | | | | | | | +--------+ + + + + documented as of this encounter Visit Diagnoses Not on filedocumented in this encounter"
--- OUTSIDE RECORDS SUMMARY | ~2019-09-13 | XMS | Encounter Summary ---
Demographics + + + | Address | [address] | | | [place] [address] | + + + | Home Phone [...] [place] | | | | | [address] | | + + + + + Care Team Providers + +------+ + | Care Sheriff Deputy Name | Role | Phone | + [...] To Surgery | | 2017 | | [place] [facility] [address] | | - General | | | | [address] | | | | | | Mailcode: [place] | | | | | | for Health and | | | | | | [facility] [address] [facility] | | | | | | [place], [place] | | | | | | [address] | | | | | | [phone] | | | +--------+ + + + [...] Rd | | | | | | [place], [place] | | | | | | [address] | | | | | | [phone] | | | | | | | | +--------+ + + + + | 09/22/ | Surgery | Surgery | Shu, | RECURRENT VENTRAL | | 2018 | | | MD Devaughn Massey | HERNIA REPAIR AND | | | | | [address] | EXCISION OF MESH | | | | | [place], [place] | | | | | | [address] | | | | | | [phone] | | | | | | | | +--------+ + + + + documented as of this encounter Visit Diagnoses Not on filedocumented in this encounter"
--- OUTSIDE RECORDS SUMMARY | ~2019-09-13 | XMS | Encounter Summary ---
Demographics + + + | Address | [address] | | | [place] [address] | + + + | Home Phone [...] [place] | | | | | [address] | | + + + + + Care Team Providers + +------+ + | Care Janitor Caretaker Name | Role | Phone | + +------+ + | Aleshia Martinez PA-C | PCP | | + +------+ + Encounter Details +--------+ + + + + | Date | Type | Department | Care Team | Description | +--------+ + + + + | 07/01/ | Telephone | Digestive Health | Gildardo Downing, | | | 2017 | | Center at [facility] [address] | [address] | | | | | [address] | [facility] [place] | | | | | Mailcode: Center | [address] | | | | | for Health and | [phone] | | | | | [facility], [address] | | | | | | [place], [place] | | | | | | [address] | | | | | | [phone] | | | +--------+ + + + [...] Rd | | | | | | [place], [place] | | | | | | [address] | | | | | | [phone] | | | | | | | | +--------+ + + + + | 09/22/ | Surgery | Surgery | Shu, | RECURRENT VENTRAL | | 2018 | | | MD Bryson [address] | HERNIA REPAIR AND | | | | | [address] | EXCISION OF MESH | | | | | [place], [place] | | | | | | [address] | | | | | | [phone] | | | | | | | | +--------+ + + + + documented as of this encounter Visit Diagnoses Not on filedocumented in this encounter"
[~2019-09-13 12:51] MED LIST changes: +OMEPRAZOLE20 MG PO; +PREDNISONE20 MG PO
== END 2019-09-13 19:08 | disposition home or self-care (01) ==
LOC: ED 12:51
DX: S39.011A Strain of muscle, fascia and tendon of abdomen, initial encounter (principal); X50.0XXA Overexertion from strenuous movement or load, initial encounter; I10 Essential (primary) hypertension; Z91.041 Radiographic dye allergy status; Z91.048 Other nonmedicinal substance allergy status; Z91.040 Latex allergy status; Z88.8 Allergy status to other drugs, medicaments and biological substances; Z79.899 Other long term (current) drug therapy
CPT/HCPCS: 74176; 80053; 85025; 99284-25

== ENCOUNTER 2019-09-27 12:02 | Emergency (ER) | payer OTHER, BC ==
[~2019-09-27] VITALS: Ht 167.6 cm; Wt 75.3 kg
--- OUTSIDE RECORDS SUMMARY | ~2019-09-27 | XMS | Encounter Summary ---
Demographics + + + | Address | [address] | | | [place] [address] | + + + | Home Phone | | + + + | Preferred Language | Unknown | + + + | Marital Status | | + + + | Presybeterian Affiliation | CHR | + + + | Race | White | + + + | Ethnic Group | Not or | + + + Author + + + | Author | [facility] | + + + | Organization | [facility] | + + + | Address | Unknown | + + + | Phone | Unavailable | + + + Support + + + + + | Name | Relationship | Address | Phone | + + + + + | [place] | ECON | [address] | | | | | [place] | | | | | [address] | | + + + + + Care Team Providers + +------+ + | Care Notching Machine Operator Name | Role | Phone | + +------+ + | Aleshia Martinez PA-C | PCP | | + +------+ + Reason for Visit AUTH/CERT +--------+--------+ + + + + | Status | Reason | Specialty | Diagnoses / | Referred By | Referred To | | | | | Procedures | Contact | Contact | +--------+--------+ + + + + | | | | | | | +--------+--------+ + + + + Encounter Details +--------+ + + + + | Date | Type | Department | Care Team | Description | +--------+ + + + + | 08/31/ | Anesthesia | 6A Intra Op [facility] | Mark Portillo, | | | 2018 | Event | [facility] | , [place] [address] | | | | | Admitting Desk | [address] | | | | | Located on the | [place], [place] | | | | | [facility] [address] | [address] | | | | | [address] | [phone] | | | | | [place], [place] | | | | | | [address] | | | +--------+ + + + + Anesthesia Record + + + + + | Procedure Name | Responsible | Anesthesia Start | Anesthesia Stop Time | | | Anesthesiologist | Time | | + + + + + | LAPAROSCOPIC SLEEVE | Mark Portillo DO, | 08/31/18 1223 | 08/31/18 1415 | | GASTRECTOMY with EGD | [place] | | | | (N/A Abdomen) | | | | + + + + + +----+---+ + + | Da | T | Event | Comment | | te | i | | | | | m | | | | | e | | | +----+---+ + + | 11 | 1 | An Start | | | /0 | 2 | | | | 7/ | 2 | | | | 20 | 3 | | | | 18 | | | | +----+---+ + + | | 1 | An Start | | | | 2 | Data | | | | 3 | | | | | 1 | | | +----+---+ + + | | 1 | Vitals | Monitors applied Vital signs checked Patient ready for anesthesia | | | 2 | Checked | | | | 3 | | | | | 2 | | | +----+---+ + + | | 1 | ETT | | | | 2 | | | | | 3 | | | | | 9 | | | +----+---+ + + | | 1 | Ready | | | | 2 | | | | | 4 | | | | | 1 | | | +----+---+ + + | | 1 | Abx | | | | 2 | Administere | | | | 4 | d | | | | 4 | | | +----+---+ + + | | 1 | Timeout | | | | 2 | | | | | 5 | | | | | 2 | | | +----+---+ + + | | 1 | Local | | | | 2 | Anesthetic | | | | 5 | by Surgeon | | | | 6 | | | +----+---+ + + | | 1 | Incision | | | | 2 | | | | | 5 | | | | | 6 | | | +----+---+ + + | | 1 | Quick Note | Insufflation | | | 2 | | | | | 5 | | | | | 8 | | | +----+---+ + + | | 1 | Quick Note | Endoscope advanced to 48 cm per surgeon request and under direct | | | 3 | | visualization. | | | 1 | | | | | 8 | | | +----+---+ + + | | 1 | Quick Note | Arms and hands checked for pressure points: none found.Arm | | | 3 | | position gently adjusted. Mouth, lips, nose, and eyes checked | | | 3 | | for pressure points: none found.Head position gently adjusted to | | | 0 | | decrease risk of pressure alopecia. | +----+---+ + + | | 1 | AN | | | | 3 | Recruitment | | | | 3 | Breath | | | | 2 | | | +----+---+ + + | | 1 | Surgery end | | | | 3 | | | | | 5 | | | | | 3 | | | +----+---+ + + | | 1 | An Extubate | Neuromuscular function Intact. Pharynx suctioned. Patient obeys | | | 4 | | commands. Adequate pulmonary mechanics. | | | 0 | | | | | 3 | | | +----+---+ + + | | 1 | an stop | | | | 4 | data | | | | 0 | | | | | 3 | | | +----+---+ + + | | 1 | PACU Rpt | | | | 4 | Given | | | | 1 | | | | | 5 | | | +----+---+ + + | | 1 | Anesthesia | | | | 4 | End | | | | 1 | | | | | 5 | | | +----+---+ + + +------+ | Meds | +------+ + +---------+ | Name | Total | + +---------+ | lidocaine 2% | 100 mg | + +---------+ | propofol | 400 mg | + +---------+ | rocuronium | 50 mg | + +---------+ | PHENYLEPHrine | 200 mcg | + +---------+ | dexamethasone | 4 mg | + +---------+ | ketamine | 60 mg | + +---------+ | esmolol | 80 mg | + +---------+ | cefOXitin (MEFOXIN) injection 2 g | 2 g | + +---------+ | succinylcholine | 80 mg | + +---------+ | sugammadex | 200 mg | + +---------+ | lactated Ringers IV | 700 mL | + +---------+ + + | Name | + + | O2 FR Avance (Total Liters) | + + | Air FR Avance (l/min) | + + | Insp Nuno | + + | Et Nuno | + + | Insp N2O % | + + + + | No blood administrations on file. | + + +--------+ + + + | Type | Details | Placement | Removal | +--------+ + + + | Incisi | 08/31/18; 1256; Geovanni Downing MD; | 08/31/18 1256 by | | | on | Right; Medial; abdomen | Keyla Reyes RN | | +--------+ + + + | Incisi | 08/31/18; 1256; Geovanni Downing MD; | 08/31/18 1256 by | | | on | Left; Medial; abdomen | Keyla Reyes RN | | +--------+ + + + | Incisi | 08/31/18; 1256; Geovanni Downing MD; | 08/31/18 1256 by | | | on | Left; Lateral; abdomen | Keyla Reyes RN | | +--------+ + + + | Incisi | 08/31/18; 1256; Geovanni Downing MD; | 08/31/18 1256 by | | | on | Midline; epigastrium | Keyla Reyes RN | | +--------+ + + + | Incisi | 08/31/18; 1256; Geovanni Downing MD; | 08/31/18 1256 by | | | on | Midline; umbilical area | Keyla Reyes RN | | +--------+ + + + | Periph | 08/31/18; 1119; Right; Dorsal; | 08/31/18 1119 by | 09/02/18 1652 by | | eral | Hand; 22 g; Positive; 09/02/18; | Reyna Groves RN | Marylou Arnett, | | IV | 1652; Discharge | | RN | +--------+ + + + | ETT | 08/31/18; 1334 (created via | 08/31/18 1334 by | 08/31/18 1403 by | | | procedure documentation); | Ni Silva | Ni Silva | | | Endotracheal Tube; 7.5; Oral; | MD Hema | MD Hema | | | Cuffed; 08/31/18; 1403 | | | +--------+ + + + documented in this encounter Social History + + + +--------+ + | Tobacco Use | Types | Packs/Day | Years | Date | | | | | Used | | + + + +--------+ + | Former Smoker | Cigarettes | 0.1 | 5 | Quit: 10/25/2006 | + + + +--------+ + + +---+---+---+ | Smokeless Tobacco: [...] Description | +--------+---------+ + + + | 10/05/ | Office | Surgery | Shu, | | | 2019 | Visit | | MD Bryson [address] | | | | | [address] | | | | | | [place], [place] | | | | | | [address] | | | | | | [phone] | | | | | | | | +--------+---------+ + + + documented as of this encounter Procedures + +--------+ + + + | Procedure Name | Priori | Date/Time | Associated Diagnosis | Comments | | | ty | | | | + +--------+ + + + | ANE ETT | Routin | 08/31/2018 | | Results for this | | | e | 1:33 PM | | procedure are in the | | | | PST | | results section. | + +--------+ + + + documented in this encounter Results ANE ETT (08/31/2018 1:33 PM PST) + + + | Narrative | Performed At | + + + | Ni Garrido MD 08/31/2018 1:34 PM Procedure | | | Reason for Intubation: For surgical procedure, Location Performed: OR | | | , Patient was preoxygenated Mask Ventilation Grade 1 - Ventilated | | | by mask Intubation Blade type: Other , Atraumatic laryngoscopy: | | | Atraumatic Laryngoscopy, Intubation adjuncts: Stylet used , | | | Laryngoscopic view: Grade I, Fiberoptics used: Glidescope , Number | | | of Attempts: 1, Positive for EtCO2: Yes, Breath sounds: Bilateral | | | and equal ETT ETT Size: 7.5 ETT secured with: adhesive | | | tape Depth at Teeth: 20 Cm Narrative Attending physically | | | present Attending: MARK PORTILLO Performed by Resident HEMA, | | | NI BHAT with ramp. LTA used. Tube easily passed through | | | cords. | | + + + documented in this encounter Visit Diagnoses Not on filedocumented in this encounter Administered Medications + +--------+ +------+------+------+ | Medication Order | MAR | Action | Dose | Rate | Site | | | Action | Date | | | | + +--------+ +------+------+------+ | cefOXitin (MEFOXIN) injection 2 | Given | 08/31/20 | 2 g | | | | g 2 g, intravenous, | | 18 12:44 | | | | | PREPROCEDURE ONCE, 1 dose, | | PM PST | | | | | Starting Wed08/31/18 at 1038, | | | | | | | Until Wed08/31/18 at 1244 | | | | | | + +--------+ +------+------+------+ +---+---+ | | | +---+---+ + +-------+ +------+---+---+ | dexamethasone (DECADRON) | Given | 08/31/20 | 4 mg | | | | injection INTRAPROCEDURE PRN, | | 18 12:42 | | | | | Starting Wed08/31/18 at 1242, | | PM PST | | | | | Until Wed08/31/18 at 1403 | | | | | | + +-------+ +------+---+---+ +---+---+ | | | +---+---+ + +-------+ +-------+---+---+ | esmolol (BREVIBLOC) injection | Given | 08/31/20 | 10 mg | | | | intravenous, INTRAPROCEDURE PRN, | | 18 1:08 | | | | | Starting Wed08/31/18 at 1236, | | PM PST | | | | | Until Wed08/31/18 at 1403 | | | | | | + +-------+ +-------+---+---+ +-------+ +-------+---+---+ | Given | 08/31/20 | 20 mg | | | | | 18 12:44 | | | | | | PM PST | | | | +-------+ +-------+---+---+ | Given | 08/31/20 | 20 mg | | | | | 18 12:42 | | | | | | PM PST | | | | +-------+ +-------+---+---+ +---+---+ | | | +---+---+ + +-------+ +-------+---+---+ | ketamine (KETALAR) injection | Given | 08/31/20 | 10 mg | | | | INTRAPROCEDURE PRN, Starting Wed | | 18 1:07 | | | | | 08/31/18 at 1255, Until Wed | | PM PST | | | | | 08/31/18 at 1403 | | | | | | + +-------+ +-------+---+---+ +-------+ +-------+---+---+ | Given | 08/31/20 | 50 mg | | | | | 18 12:55 | | | | | | PM PST | | | | +-------+ +-------+---+---+ +---+---+ | | | +---+---+ + + + +---+---+---+ | lactated Ringers IV 10 mL/hr, | given by | 08/31/20 | | | | | intravenous, PROCEDURE | | 18 1:27 | | | | | CONTINUOUS, Starting 08/31/18 | anesthes | PM PST | | | | | at 1045, Until Wed08/31/18 at | iology | | | | | | 2042 | | | | | | + + + +---+---+---+ +---------+ + + +---+ | New Bag | 08/31/20 | 10 mL/hr | 10 mL/hr | | | | 18 11:20 | | | | | | AM PST | | | | +---------+ + + +---+ +---+---+ | | | +---+---+ + +-------+ +--------+---+---+ | lidocaine (XYLOCAINE MPF) 2 % | Given | 08/31/20 | 100 mg | | | | (20 mg/mL) injection | | 18 12:34 | | | | | INTRAPROCEDURE PRN, Starting Wed | | PM PST | | | | | 08/31/18 at 1234, Until Wed | | | | | | | 08/31/18 at 1403 | | | | | | + +-------+ +--------+---+---+ +---+---+ | | | +---+---+ + +-------+ +---------+---+---+ | PHENYLEPHrine 100 mcg/mL IV | Given | 08/31/20 | 100 mcg | | | | syringe INTRAPROCEDURE PRN, | | 18 1:16 | | | | | Starting Wed08/31/18 at 1250, | | PM PST | | | | | Until Wed08/31/18 at 1403 | | | | | | + +-------+ +---------+---+---+ +-------+ +--------+---+---+ | Given | 08/31/20 | 50 mcg | | | | | 18 1:11 | | | | | | PM PST | | | | +-------+ +--------+---+---+ | Given | 08/31/20 | 50 mcg | | | | | 18 12:50 | | | | | | PM PST | | | | +-------+ +--------+---+---+ +---+---+ | | | +---+---+ + +-------+ +-------+---+---+ | propofol (DIPRIVAN) injection | Given | 08/31/20 | 40 mg | | | | INTRAPROCEDURE PRN, Starting Wed | | 18 1:14 | | | | | 08/31/18 at 1308, Until Wed | | PM PST | | | | | 08/31/18 at 1403 | | | | | | + +-------+ +-------+---+---+ +-------+ +-------+---+---+ | Given | 08/31/20 | 30 mg | | | | | 18 1:08 | | | | | | PM PST | | | | +-------+ +-------+---+---+ | Given | 08/31/20 | 30 mg | | | | | 18 12:45 | | | | | | PM PST | | | | +-------+ +-------+---+---+ +---+---+ | | | +---+---+ + +-------+ +-------+---+---+ | rocuronium (ZEMURON) injection | Given | 08/31/20 | 10 mg | | | | INTRAPROCEDURE PRN, Starting Wed | | 18 1:29 | | | | | 08/31/18 at 1243, Until Wed | | PM PST | | | | | 08/31/18 at 1403 | | | | | | + +-------+ +-------+---+---+ +-------+ +-------+---+---+ | Given | 08/31/20 | 40 mg | | | | | 18 12:43 | | | | | | PM PST | | | | +-------+ +-------+---+---+ +---+---+ | | | +---+---+ + +-------+ +-------+---+---+ | succinylcholine (ANECTINE) | Given | 08/31/20 | 80 mg | | | | injection INTRAPROCEDURE PRN, | | 18 12:38 | | | | | Starting 08/31/18 at 1238, | | PM PST | | | | | Until 08/31/18 at 1403 | | | | | | + +-------+ +-------+---+---+ +---+---+ | | | +---+---+ + +-------+ +--------+---+---+ | sugammadex (BRIDION) IV | Given | 08/31/20 | 200 mg | | | | INTRAPROCEDURE PRN, Starting Wed | | 18 1:52 | | | | | 08/31/18 at 1352, Until Wed | | PM PST | | | | | 08/31/18 at 1741 | | | | | | + +-------+ +--------+---+---+ +---+---+ | | | +---+---+ documented in this encounter"
--- OUTSIDE RECORDS SUMMARY | ~2019-09-27 | XMS | Encounter Summary ---
Demographics + + + | Address | [address] | | | [place] [address] | + + + | Home Phone | | + + + | Preferred Language | Unknown | + + + | Marital Status | | + + + | Anabaptism Affiliation | CHR | + + + [...] [place] | | | | | [address] | | + + + + + Care Team Providers + +------+ + | Care Loss Prevention Guard Name | Role | Phone | + +------+ + | Aleshia Martinez PA-C | PCP | | + +------+ + Reason for Visit + + + | Reason | Comments | + + + | Bariatric Nutrition | | + + + Encounter Details +--------+---------+ + + + | Date | Type | Department | Care Team | Description | +--------+---------+ + + + | 06/08/ | Office | Digestive Health | | Morbid obesity with | | 2017 | Visit | Center at [facility] [address] | | body mass index of | | | | [address] | | 40.0-44.9 in adult | | | | Mailcode: Center | | ([facility]) (Primary Dx) | | | | for Health and | | | | | | [facility], [facility] [address] | | | | | | [place], [place] | | | | | | [address] | | | | | | [phone] | | | +--------+---------+ + + + [...] + + documented as of this encounter Last Filed Vital Signs + + + + + | Vital Sign | Reading | Time Taken | Comments | + + + + + | Blood Pressure | - | - | | + + + + + | Pulse | - | - | | + + + + + | Temperature | - | - | | + + + + + | Respiratory Rate | - | - | | + + + + + | Oxygen Saturation | - | - | | + + + + + | Inhaled Oxygen | - | - | | | Concentration | | | | + + + + + | Weight | 125.5 kg (276 lb 9.6 | 04/01/2018 2:08 PM | | | | oz) | PDT | | + + + + + | Height | - | - | | + + + + + | Body Mass Index | 44.64 | 02/28/2018 2:35 PM | | | | | PDT | | + + + + + documented in this encounter Progress Notes Tim MALDONADO, Carmen - 04/01/2018 2:00 PM PDTFormatting of this note might be different fro m the original. Referring Provider: [facility], Pre-Bariatric Surgery Class Pre-Surgery Class #2 prior to having Tobias-En-Y gastric bypass surgery or Sleeve Gastrectomy . Documented Time of Class: 2:00/3:00 until 3:00/4:00 (60 minutes nssy-aw-hwsd with patient) OBJECTIVE: Height: Ht Readings from Last 1 Encounters: 02/28/18 1.676 m (5' 6") Ht Readings from Last 1 Encounters: 02/28/18 1.676 m (5' 6") Wt Readings from Last 2 Encounters: 04/01/18 125.5 kg (276 lb 9.6 oz) 03/04/18 124.4 kg (274 lb 3.2 oz) BMI: Body mass index is 44.64 kg/m. Teaching Methods: PowerPoint and verbal presentation with additional written materials. Class content included: 1. Review of luong points. -Eat within one hour of waking, then every 3 to 4 waking hours (usually 3 meals and 2-3 sna cks daily)Include protein at meals (2-3 ounces) and at snacks (~1 ounce). -Goal is 60-80grams of protein/day -At least 64 ounces of fluids throughout the day (no calories, caffeine, or carbonation) -Separate fluids from meals nothing to drink 30 minutes before, during, and [address] eating -Practice mindful eating eat slowly (30 minutes for meals) without distractions such as T V, computer, phone -Choose foods with < 14 grams of sugar and < 5 grams of fat per serving -30-60 minutes of physical activity most days -Taking vitamins and minerals every day 2. Fluids 3. Exercise 4. Vitamins and Minerals & lab work. 5. Liver Reduction Diet 6. Post surgical diet progression Assessment: Pt remained attentive throughout the class and/or participated by asking questi ons or sharing information. Yes Carmen Dumont RD,LD Pager# [phone] Phone: [phone] documented in this en counter Plan of Treatment +--------+---------+ + + + | Date | Type | Specialty | Care Team | Description | +--------+---------+ + + + | 10/05/ | Office | Surgery | Shu, | | | 2018 | Visit | | MD Bryson [address] | | | | [address] | | | | | | [place], [place] | | | | | | [address] | | | | | | [phone] | | | | | | | | +--------+---------+ + + + documented as of this encounter Visit Diagnoses + + | Diagnosis | + + | Morbid obesity with body mass index of 40.0-44.9 in adult (HCC) - Primary | + + documented in this encounter
--- OUTSIDE RECORDS SUMMARY | ~2019-09-27 | XMS | Encounter Summary ---
Demographics + + + | Address | [address] | | | [place] [address] | + + + | Home Phone | | + + + | Preferred Language | Unknown | + + + | Marital Status | | + + + | Cheondoism Affiliation | CHR | + + + | Race | White | + + + | Ethnic Group | Not or | + + + Author + + + | Author | [facility] | + + + | Organization | [facility] | + + + | Address | Unknown | + + + | Phone | Unavailable | + + + Support + + + + + | Name | Relationship | Address | Phone | + + + + + | Stewart Corbett | ECON | [address] | | | | | [place] | | | | | [address] | | + + + + + Care Team Providers + +------+ + | Care Lithopress Operator Name | Role | Phone | + +------+ + | Aleshia Martinez PA-C | PCP | | + +------+ + Reason for Referral Consultation (Routine) + +--------+ + + + + | Status | Reason | Specialty | Diagnoses / | Referred By | Referred To | | | | | Procedures | Contact | Contact | + +--------+ + + + + | Referred | | Surgery | Diagnoses | Iris, | Shu | | | | | H/O | Marta Awan, | MD Bryson | | | | | bariatric | AGACNP [address] | [address] | | | | | surgery | [place] | [place] | | | | | History of | [place], | [place], | | | | | abdominal | [place] | [place] | | | | | surgery | [address] | [address] | | | | | Recurrent | Phone: | Phone: | | | | | ventral | | [phone] | | | | | hernia | Fax: | Fax: | | | | | Abdominal | [phone] | [phone] | | | | | pain, | | | | | | | unspecified | | | | | | | abdominal | | | | | | | location | | | | | | | Procedures | | | | | | | CONSULT TO | | | | | | | SURGERY - | | | | | | | GENERAL | | | + +--------+ + + + + Encounter Details +--------+ + + + + | Date | Type | Department | Care Team | Description | +--------+ + + + + | 04/10/ | MyChart | Digestive Health | Marta Simmons, | RE: Lab & hernia | | 2019 | Encounter | Center at [facility] [address] | AGACNP [address] | | | | | [address] | [place], [place] | | | | | Mailcode: Center | [address] | | | | | for Health and | | | | | | [facility] [address] | | | | | | [place], [place] | | | | | | [address] | | | | | | | | | +--------+ + + + + Social History + + [...] | Visit | | MD Bryson [address] | | | | | [address] | | | | | | [place], [place] | | | | | | [address] | | | | | | [phone] | | | | | | | | +--------+---------+ + + + documented as of this encounter Visit Diagnoses + + | Diagnosis | + + | H/O bariatric surgery - Primary Bariatric surgery status | + + | History of abdominal surgery Other postprocedural status | + + | Recurrent ventral hernia Incisional hernia without mention of obstruction or gangrene | + + | Abdominal pain, unspecified abdominal location | + + documented in this encounter"
--- OUTSIDE RECORDS SUMMARY | ~2019-09-27 | XMS | Encounter Summary ---
Demographics + + + | Address | [address] | | | [place] [address] | + + + | Home Phone | | + + + | Preferred Language | Unknown | + + + | Marital Status | | + + + | Muslim Affiliation | CHR | + + + | Race | White | + + + | Ethnic Group | Not or | + + + Author + + + | Author | [facility] | + + + | Organization | [facility] | + + + | Address | Unknown | + + + | Phone | Unavailable | + + + Support + + + + + | Name | Relationship | Address | Phone | + + + + + | Stewart Corbett | ECON | [address] | | | | | [place] | | | | | [address] | | + + + + + Care Team Providers + +------+ + | Care Cook Vegetable Name | Role | Phone | + +------+ + | Aleshia Martinez PA-C | PCP | | + +------+ + Encounter Details +--------+ + + + + | Date | Type | Department | Care Team | Description | +--------+ + + + + | 09/07/ | MyChart | [facility] | [address] | Appoint today at 10 | | 2018 | Encounter | Center at [facility] [address] | [address] | am | | | | [address] | [address] [place]ul[place], | | | | | Mailcode: Center | [place] [address] | | | | | for Health and | | | | | | Healing, [facility] [address] | | | | | | [place], [place] | | | | | | [address] | | | | | | [phone] | | | +--------+ + + + [...] 2019 | Visit | | MD Bryson [address] | | | | | | [address] | | | | | | [place], [place] | | | | | | [address] | | | | | | [phone] | | | | | | | | +--------+---------+ + + + documented as of this encounter Visit Diagnoses Not on filedocumented in this encounter"
--- OUTSIDE RECORDS SUMMARY | ~2019-09-27 | XMS | Encounter Summary ---
Demographics + + + | Address | [address] | | | [place] [address] | + + + | Home Phone | | + + + | Preferred Language | Unknown | + + + | Marital Status | | + + + | Restoration Affiliation | CHR | + + + | Race | White | + + + | Ethnic Group | Not or | + + + Author + + + | Author | [facility] | + + + | Organization | [facility] | + + + | Address | Unknown | + + + | Phone | Unavailable | + + + Support + + + + + | Name | Relationship | Address | Phone | + + + + + | Stewart Corbett | ECON | [address] | | | | | [place] | | | | | [address] | | + + + + + Care Team Providers + +------+ + | Care Packing Line Worker Name | Role | Phone | + +------+ + | Aleshia Martinez PA-C | PCP | | + +------+ + Reason for Visit +--------+ + | Reason | Comments | +--------+ + | Other | surgery scheduling, possible GERD symptoms | +--------+ + Encounter Details +--------+ + + + + | Date | Type | Department | Care Team | Description | +--------+ + + + + | 07/12/ | Telephone | [facility] | Gildardo Downing, | Other (surgery | | 2018 | | Center at [facility] [address] | MD [address] | scheduling, possible | | | | [address] | [place], [place] | GERD symptoms) | | | | Mailcode: [place] | [address] | | | | | for Health and | | | | | | [facility] [address] | | | | | | [place], [place] | | | | | | [address] | | | | | | | [address] | | | | | | [place], [place] | | | | | | [address] | | | | | | [phone] | | | | | | | | +--------+---------+ + + + documented as of this encounter Visit Diagnoses Not on filedocumented in this encounter"
--- OUTSIDE RECORDS SUMMARY | ~2019-09-27 | XMS | Encounter Summary ---
Demographics + + + | Address | [address] | | | [place] [address] | + + + | Home Phone | | + + + | Preferred Language | Unknown | + + + | Marital Status | | + + + | Pentecostal Affiliation | CHR | + + + | Race | White | + + + | Ethnic Group | Not or | + + + Author + + + | Author | [facility] | + + + | Organization | [facility] | + + + | Address | Unknown | + + + | Phone | Unavailable | + + + Support + + + + + | Name | Relationship | Address | Phone | + + + + + | Stewart Corbett | ECON | [address] | | | | | [place] | | | | | [address] | | + + + + + Care Team Providers + +------+ + | Care Lining Sewer Name | Role | Phone | + +------+ + | Aleshia Martinez PA-C | PCP | | + +------+ + Reason for Referral Consultation (Routine) +--------+---------+ + + + + | Status | Reason | Specialty | Diagnoses / | Referred By | Referred To | | | | | Procedures | Contact | Contact | +--------+---------+ + + + + | Closed | Other | Pain | Diagnoses | Vince | [facility] | | | | Management | Morbid | BIJAL Calderon | [address] | | | | | obesity with | [address] | | | | | BMI of | [address] | Mailcode: | | | | | 40.0-44.9, | [place], [place] | [facility] | | | | | adult (HCC) | [address] | for Health | | | | | Borderline | Phone: | and Healing, | | | | | diabetes | [phone] | Building [address], | | | | | Essential | Fax: | 15th Floor | | | | | hypertension | [phone] | [place], [place] | | | | | Mild | | [address] | | | | | intermittent | | Phone: | | | | | asthma | | [phone] | | | | | without | | Fax: | | | | | complication | | [phone] | | | | | Anxiety | [...] | | | MANAGEMENT | | | +--------+---------+ + + + + Reason for Visit [...] + + + + + + | Authorized | BAR: | Surgery | Diagnoses | Perez | Bar | | | Scheduled | | Morbid | [place], | Bariatri Surg | | | with SYSTEMATIC THEOLOGY PROFESSOR | | obesity | Ganesh Holden MD | [address] | | | | | ([facility]) | [address] | | | | | Procedures | Guillermo Regan | Mailcode: | | | | | CONSULT TO | Shahla Sepulveda | [facility] | | | | | BARIATRIC | [place], [place] | [facility] and | | | | | SURGERY | [address] | Healing, | | | | | | | [address] | | | | | | | [place], [place] | | | | | | | [address] | | | | | | | Phone: | | | | | | | [phone] | | | | | | | Fax: | | | | | | | [phone] | + + + + + + + Encounter Details +--------+---------+ + + + | Date | Type | Department | Care Team | Description | +--------+---------+ + + + | 01/06/ | Office | Digestive Health | Yumiko Clarke, | Morbid obesity with | | 2018 | Visit | Center at [facility] [address] | [address] | BMI of 40.0-44.9, | | | | [address] | Ave [place], [place] | adult (HCC) (Primary | | | | Mailcode: Center | [address] | Dx); Borderline | | | | for Health and | [phone] | diabetes; Essential | | | | Healing, Building 2 | | hypertension; Mild | | | | [place], [place] | | intermittent asthma | | | | [address] | | without | | | | [phone] | | complication; | | | | [...] Pressure | 149/95 | 01/06/2018 2:10 PM | | | | | PDT | | + + + + + | Pulse | 70 | 01/06/2018 2:10 PM | | | | | PDT | | + + + + + | Temperature | 36.8 C (98.3 F) | 01/06/2018 2:10 PM | | | | | PDT | | + + + + + | Respiratory Rate | 14 | 01/06/2018 2:10 PM | | | | | PDT | | + + + + + | Oxygen Saturation | 97% | 01/06/2018 2:10 PM | | | | | PDT | | + + + + + | Inhaled Oxygen | - | - | | | Concentration | | | | + + + + + | Weight | 126.3 kg (278 lb 6.4 | 01/06/2018 2:10 PM | | | | oz) | PDT | | + + + + + | Height | 167.6 cm (5' 6") | 01/06/2018 2:10 PM | | | | | PDT | | + + + + + | Body Mass Index | 44.93 | 01/06/2018 2:10 PM | | | | | PDT | | + + + + + documented in this encounter Patient Instructions Patient Instructions Yumiko Clarke ACNP - 01/06/2018 2:05 PM PDTImpression: 1. Borderline diabetes 2. HTN takes atenolol, BP elevated uarca=235/95 3. Ventral hernia with MESH 4. Hx [...] weight loss surgery to control co-morbidities. Sara Federico has attended the Public Informational Session in which risks and leslie efits of bariatric surgery were discussed. Discussion of realistic expectations of bariatri c surgery was held today. A Bariatric notebook with pre-op, inter-op and post-op guidance an d information was provided for the patient today. Plan: The following has been provided to Sara Federico This is a preliminary visit for a [...] to your private appointme nt with the placement specialist. These classes will be scheduled apporoximately 1 [...] Psychological Evaluation: If your referral is at [facility], The Pain Management Office will call [...] authorization then schedule with the surgeon. Yumiko APPIAH TRANSFER IRON OPERATOR Bariatric Surgery Nurse Practitioner [facility] | [address] | [place], [place] | [address] | Potential Contraindications to Bariatric Surgery Age [...] other providers does not guarantee that the [facility] Bariatric Surger y program will deem you a surgical candidate. documented in this encounter Progress Notes Yumiko Clarke ACNP - 01/06/2018 2:05 PM PDTFormatting of this note might be different fr om the original. BARIATRIC INITIAL VISIT Provider: Yumiko APPIAH TRANSFER IRON OPERATOR Referring Provider: Aleshia Martinez PA-C Reason for Requested Consultation: Initial evaluation for bariatric surgery. Sara Caballero is interested in sleeve g astrectomy. The [...] doesn't like side effects Transthoracic ECHO: no Pentecostal or cultural reason you would refuse blood [...] mesh implant to ventral hernia repair 2015 Social History Social History Marital status: Spouse [...] of lower extremity edema, hyperlipidemia. No CHF, [place], ischemic heart disease, DVT/PE, or pulmonary hypertension. [...] diabetes 2. HTN takes atenolol, BP elevated lqulx=442/95 3. Ventral hernia with MESH 4. Hx [...] to your private appointme nt with the placement specialist. These classes will be scheduled apporoximately 1 [...] Psychological Evaluation: If your referral is at [facility], The Pain Management Office will call [...] with the surgeon. Yumiko Clarke DNP ACNP TRANSFER IRON OPERATOR Bariatric Surgery Nurse Practitioner [facility] | [address] | [place], [place] | [address] | Potential Contraindications to Bariatric Surgery Age [...] other providers does not guarantee that the [facility] Bariatric Surger y program will deem you a surgical candidate. documented in this e ncounter Plan of Treatment +--------+---------+ + + + | Date | Type | Specialty | Care Team | Description | +--------+---------+ + + + | 10/05/ | Office | Surgery | Shu, | | | 2018 | Visit | | MD [address] | | | | | | [facility] | | | | | | [place], [place] | | | | | | [address] | | | | | | [phone] | | | | | | | | +--------+---------+ + + + documented as of this encounter Procedures + +--------+ + + + | Procedure Name | Priori | Date/Time | Associated Diagnosis | Comments | | | ty | | | | + +--------+ + + + | 12 LEAD ECG | Routin | 01/06/2018 | Morbid obesity | Results for this | | | e | 4:25 PM | with BMI of | procedure are in the | | | | PDT | 40.0-44.9, adult | results section. | | | | | ([facility]) Borderline | | | | | | diabetes Essential | | | | | | hypertension Mild | | | | | | intermittent asthma | | | | | | without complication | | | | | | Anxiety Ventral | | | | | | hernia with | | | | | | obstruction and | | | | | | without gangrene | | | | | | Stress incontinence | | | | | | in female | | + +--------+ + + + documented in this encounter Results LIPID SET (TRIG, T CHOL, HDL, CALC LDL) (01/06/2018 4:48 PM PDT) + +---------+ + + + | Component | Value | Ref Range | Performed | Pathologist | | | | | At | Signature | + +---------+ + + + | CHOLESTEROL | 252 (H) | <200 mg/dL | [facility] | | | (LAB) | | | LABORATORY | | | | | | SERVICES, | | | | | | CORE | | + +---------+ + + + | TRIGLYCERID | 206 (H) | <150 mg/dL | [facility] | | | ES | | | LABORATORY | | | | | | SERVICES, | | | | | | CORE | | + +---------+ + + + | HDL | 30 (L) | >40 mg/dL | [facility] | | | CHOLESTEROL | | | LABORATORY | | | | | | SERVICES, | | | | | | CORE | | + +---------+ + + + | HDL CMNT | No Hemo | | [facility] | | | | | | LABORATORY | | | | | | SERVICES, | | | | | | CORE | | + +---------+ + + + | LDL | 181 (H) | <100 mg/dL | [facility] | | | CHOLESTEROL | | | LABORATORY | | | , | | | SERVICES, | | | CALCULATED | | | CORE | | + +---------+ + + + | VLDL | 41 (H) | <31 mg/dL | [facility] | | | CHOLESTEROL | | | LABORATORY | | | , | | | SERVICES, | | | CALCULATED | | | CORE | | + +---------+ + + + | NON-HDL | 222 (H) | <130 mg/dL | [facility] | | | CHOLESTEROL | | | LABORATORY | | | | | | SERVICES, | | | | | | CORE | | + +---------+ + + + + + | Specimen | + + | Blood - Blood | | (substance) | + + + + + | Narrative | Performed At | + + + | Cholesterol Reference Range: Desirable: <200 | [facility] | | mg/dL Borderline High: 200 - 239 mg/dL | LABORATORY | | High: >=240 mg/dL LDL Cholesterol | SERVICES, CORE | | Reference Range: Optimal: <100 mg/dL | | | Near Optimal: 100-129 mg/dL Borderline High: 130-159 | | | mg/dL High: 160-189 mg/dL | | | Very High: >=190 mg/dL non-HDL Cholesterol Reference Range: | | | Optimal: <130 mg/dL Near Optimal: | | | 130-159 mg/dL Borderline High: 160-189 mg/dL | | | High: 190-209 mg/dL Very High: | | | >=210 mg/dL Triglyceride Reference Range: | | | Normal: <150 mg/dL Borderline High: 150-199 mg/dL | | | High: 200-499 mg/dL Very High: >=500 mg/dL | | | HDL Reference Range: High Risk: <40 mg/dL | | | Desirable: >=60 mg/dL | | + + + + + + + + | Performing | Address | City/State/Zipcode | Phone Number | | Organization | | | | + + + + + | [facility] | [address] | [place] [address] | | | SERVICES, CORE | [address] | | | + + + + + HEMOGLOBIN A1C, BLOOD (01/06/2018 4:48 PM PDT) + + + + + + | Component | Value | Ref Range | Performed | Pathologist | | | | | At | Signature | + + + + + + | HEMOGLOBIN | 5.9 (H)Comment: Hgb A1C | <5.7 % | [facility] | | | A1C | Interpretive | | LABORATORY | | | | Information: | | SERVICES, | | | | <5.7% - Normal | | SPECIAL IMM | | | | 5.7-6.4% - Consistent | | + [facility] | | | | with pre-diabetes | | | | | | >6.4% - Consistent | | | | | | with diabetes | | | | | | | | | | + + + + + + + + | Specimen | + + | Blood - Blood | | (substance) | + + + + + | Narrative | Performed At | + + + | Alternate forms of testing such as fructosamine should be | [facility] | | considered for monitoring mcc glycemic control in patients with: | LABORATORY | | Increased red cell turnover, certain hemoglobinopathies (e.g., HbS, | SERVICES, | | HbE, HbC and thalassemia syndromes), anemias, blood loss, chronic | SPECIAL IMM + | | liver disease and hemochromatosis (artefactually low HbA1c); iron | [facility] | | deficiency anemia (artefactually high HbA1c due to enhanced glycation | | | of hemoglobin). | | + + + + + + + + | Performing | Address | City/State/Zipcode | Phone Number | | Organization | | | | + + + + + | [facility] | [address] | [place] [address] | | | SERVICES, SPECIAL | [address] | | | | IMM + [place] | | | | + + + + + VITAMIN B1, WHOLE BLOOD (01/06/2018 4:48 PM PDT) + + + + + + | Component | Value | Ref Range | Performed | Pathologist | | | | | At | Signature | + + + + + + | VITAMIN B1, | 115Comment: INTERPRETIVE | 70 - 180 nmol/L | [facility] | | | WHOLE | INFORMATION: Vitamin | | REG UNIV | | | BLOOD | B1, Whole Blood This | | PTH - [facility] | | | | assay measures the | | | | | | concentration of | | | | | | thiamine diphosphate | | | | | | (TDP), the primary | | | | | | active form of vitamin | | | | | | B1. Approximately 90 | | | | | | percent of vitamin B1 | | | | | | present in whole blood | | | | | | is TDP. Thiamine and | | | | | | thiamine monophosphate, | | | | | | which comprise the | | | | | | remaining 10 percent, | | | | | | are not measured. Test | | | | | | developed and | | | | | | characteristics | | | | | | determined by [facility] | | | | | | Laboratories. See | | | | | | Compliance Statement B: | | | | | | 1Lay/CSPerformed | | | | | | by [address] | | | | | [address], [facility] | | | | | | [address] | | | | | | [phone].[employer]. | | | | | | Gerardo delacruz MD, | | | | | | Lab. Director | | | | + + + + + + + + | Specimen | + + | Blood - Blood | | (substance) | + + + + + + + | Performing | Address | City/State/Zipcode | Phone Number | | Organization | | | | + + + + + | [facility] | [address] | [place], [place] | | | UNIV P[facility] | | [id number] | | + + + + + COMPLETE METABOLIC SET (NA,K,CL,CO2,BUN,CREAT,GLUC,CA,AST,ALT,BILI TOTAL,ALK PHOS,ALB,PROT TOTAL) (01/06/2018 4:48 PM PDT) + + + + + + | Component | Value | Ref Range | Performed | Pathologist | | | | | At | Signature | + + + + + + | GLUCOSE, | 76 | 70 - 99 mg/dL | [facility] | | | PLASMA | | | LABORATORY | | | (LAB) | | | SERVICES, | | | | | | CORE | | + + + + + + | BUN, PLASMA | 10 | 6 - 20 mg/dL | [facility] | | | (LAB) | | | LABORATORY | | | | | | SERVICES, | | | | | | CORE | | + + + + + + | CREATININE | 0.52 (L) | 0.60 - 1.10 | [facility] | | | PLASMA | | mg/dL | LABORATORY | | | (LAB) | | | SERVICES, | | | | | | CORE | | + + + + + + | EGFR | >60 | >60 mL/min | [facility] | | | - | | | LABORATORY | | | [place] | | | SERVICES, | | | | | | CORE | | + + + + + + | EGFR NON | >60 | >60 mL/min | [facility] | | | -[place] | | | LABORATORY | | | RICAN | | | SERVICES, | | | | | | CORE | | + + + + + + | SODIUM, | 139 | 136 - 145 | [facility] | | | PLASMA | | mmol/L | LABORATORY | | | (LAB) | | | SERVICES, | | | | | | CORE | | + + + + + + | POTASSIUM, | 3.5 | 3.4 - 5.0 | [facility] | | | PLASMA | | mmol/L | LABORATORY | | | (LAB) | | | SERVICES, | | | | | | CORE | | + + + + + + | CHLORIDE, | 106 | 97 - 108 mmol/L | [facility] | | | PLASMA | | | LABORATORY | | | (LAB) | | | SERVICES, | | | | | | CORE | | + + + + + + | TOTAL CO2, | 24 | 21 - 32 mmol/L | [facility] | | | PLASMA | | | LABORATORY | | | (LAB) | | | SERVICES, | | | | | | CORE | | + + + + + + | CALCIUM, | 8.8 | 8.6 - 10.2 | [facility] | | | PLASMA | | mg/dL | LABORATORY | | | (LAB) | | | SERVICES, | | | | | | CORE | | + + + + + + | CALCIUM(ALB | 9.0 | 8.6 - 10.2 | [facility] | | | CORRECTED) | | mg/dL | LABORATORY | | | | | | SERVICES, | | | | | | CORE | | + + + + + + | BILIRUBIN | 0.7 | 0.3 - 1.2 mg/dL | [facility] | | | TOTAL | | | LABORATORY | | | | | | SERVICES, | | | | | | CORE | | + + + + + + | TOTAL | 7.6 | 6.4 - 8.2 g/dL | [facility] | | | PROTEIN, | | | LABORATORY | | | PLASMA | | | SERVICES, | | | (LAB) | | | CORE | | + + + + + + | ALBUMIN, | 3.8 | 3.5 - 4.7 g/dL | [facility] | | | PLASMA | | | LABORATORY | | | (LAB) | | | SERVICES, | | | | | | CORE | | + + + + + + | ALK PHOS | 59 | 42 - 98 U/L | [facility] | | | | | | LABORATORY | | | | | | SERVICES, | | | | | | CORE | | + + + + + + | AST(SGOT) | 21 | <=41 U/L | [facility] | | | | | | LABORATORY | | | | | | SERVICES, | | | | | | CORE | | + + + + + + | ALT (SGPT) | 32 | <=60 U/L | [facility] | | | | | | LABORATORY | | | | | | SERVICES, | | | | | | CORE | | + + + + + + | ANION GAP | 9 | 4 - 11 mmol/L | [facility] | | | | | | LABORATORY | | | | | | SERVICES, | | | | | | CORE | | + + + + + + | ANION | 9 | 4 - 11 mmol/L | [facility] | | | GAP(ALB | | | LABORATORY | | | CORRECTED) | | | SERVICES, | | | | | | CORE | | + + + + + + | POTASSIUM | No Hemo | | [facility] | | | CMNT | | | LABORATORY | | | | | | SERVICES, | | | | | | CORE | | + + + + + + | BILI T CMNT | No Hemo | | [facility] | | | | | | LABORATORY | | | | | | SERVICES, | | | | | | CORE | | + + + + + + | AST CMNT | No Hemo | | [facility] | | | | | | LABORATORY | | | | | | SERVICES, | | | | | | CORE | | + + + + + + + + | Specimen | + + | Blood - Blood | | (substance) | + + + + + | Narrative | Performed At | + + + | Adult glucose reference range change effective 712-17. GFR is | [facility] | | estimated using the MDRD equation recommended by the National Kidney | LABORATORY | | Disease Education Program. Estimated GFR Interpretive Information: | SERVICES, CORE | | <60 mL/min/1.73 sq m Chronic Kidney Disease | | | <15 mL/min/1.73 sq m Kidney Failure Estimated | | | GFR greater that 60 mL/min/1.73 sq m is of limited clinical value. | | | The MDRD equation is not valid in the following situations: - | | | Patients under 18 years of age - Severe malnutrition or obesity - | | | Vegetarian diet - Rapidly changing kidney function | | + + + + + + + + | Performing | Address | City/State/Zipcode | Phone Number | | Organization | | | | + + + + + | [facility] | [address] | [place] [address] | | | SERVICES, CORE | [address] | | | + + + + + IRON AND TIBC (01/06/2018 4:48 PM PDT) + +-------+ + + + | Component | Value | Ref Range | Performed | Pathologist | | | | | At | Signature | + +-------+ + + + | IRON | 124 | 30 - 160 ug/dL | [facility] | | | | | | LABORATORY | | | | | | SERVICES, | | | | | | CORE | | + +-------+ + + + | IRON BIND | 367 | 240 - 450 ug/dL | [facility] | | | CAP | | | LABORATORY | | | | | | SERVICES, | | | | | | CORE | | + +-------+ + + + | % | 34 | 20 - 50 % | [facility] | | | SATURATION | | | LABORATORY | | | TRANSFERRIN | | | SERVICES, | | | , | | | CORE | | + +-------+ + + + + + | Specimen | + + | Blood - Blood | | (substance) | + + + + + + + | Performing | Address | City/State/Zipcode | Phone Number | | Organization | | | | + + + + + | [facility] [address] [facility] | [address] | [place] [address] | | | SERVICES, CORE | [address] | | | + + + + + VITAMIN B-12 01/06/2018 4:48 PM PDT) + +-------+ + + + | Component | Value | Ref Range | Performed | Pathologist | | | | | At | Signature | + +-------+ + + + | VITAMIN B12 | 403 | 193 - 986 pg/mL | [facility] | | | | | | LABORATORY | | | | | | SERVICES, | | | | | | CORE | | + +-------+ + + + | COMMENT | 1 | | [facility] | | | (HEMO) | | | LABORATORY | | | | | | SERVICES, | | | | | | CORE | | + +-------+ + + + | COMMENT | 1 | | [facility] | | | (ICTERUS) | | | LABORATORY | | | | | | SERVICES, | | | | | | CORE | | + +-------+ + + + | COMMENT | 1 | | [facility] | | | (LIPEMIA) | | | LABORATORY | | | | | | SERVICES, | | | | | | CORE | | + +-------+ + + + + + | Specimen | + + | Blood - Blood | | (substance) | + + + + + + + | Performing | Address | City/State/Zipcode | Phone Number | | Organization | | | | + + + + + | [facility] | [address] | [place] [address] | | | SERVICES, CORE | [address] | | | + + + + + FERRITIN (01/06/2018 4:48 PM PDT) + + + + + + | Component | Value | Ref Range | Performed | Pathologist | | | | | At | Signature | + + + + + + | FERRITIN | 46 (L)Comment: Male and | 50 - 200 ng/mL | [facility] | | | | Female >18 years: | | LABORATORY | | | | <20 ng/mL: | | SERVICES, | | | | Consistant with iron | | CORE | | | | deficiency 21-50 | | | | | | ng/mL: Possible | | | | | | iron deficiency 51-99 | | | | | | ng/mL: Iron | | | | | | deficiency unlikely | | | | | | unless inflammation | | | | | | present or | | | | | | patient | | | | | | >65 years of age | | | | | | 100-200 ng/mL: | | | | | | Normal, not consistent | | | | | | with iron deficiency | | | | | | >200 ng/mL: If | | | | | | transferrin saturation | | | | | | >45%, consider | | | | | | hemochromatosis | | | | + + + + + + + + | Specimen | + + | Blood - Blood | | (substance) | + + + + + + + | Performing | Address | City/State/Zipcode | Phone Number | | Organization | | | | + + + + + | [facility] | [address] | [place] [address] | | | SERVICES, CORE | [address] | | | + + + + + PTH, SERUM (01/06/2018 4:48 PM PDT) + +-------+ + + + | Component | Value | Ref Range | Performed | Pathologist | | | | | At | Signature | + +-------+ + + + | PTH, SERUM | 51 | 18 - 88 pg/mL | [facility] | | | | | | LABORATORY | | | | | | SERVICES, | | | | | | CORE | | + +-------+ + + + + + | Specimen | + + | Blood - Blood | | (substance) | + + + + + | Narrative | Performed At | + + + | New Reference Range effective 17. | [facility] | | | LABORATORY | | | SERVICES, CORE | + + + + + + + + | Performing | Address | City/State/Zipcode | Phone Number | | Organization | | | | + + + + + | [facility] | [address] | [place] [address] | | | SERVICES, CORE | [address] | | | + + + + + VITAMIN D, 25-HYDROXY, SERUM (01/06/2018 4:48 PM PDT) + + + + + + | Component | Value | Ref Range | Performed | Pathologist | | | | | At | Signature | + + + + + + | VITAMIN D | 18.7 (L) | 30 - 80 ng/mL | [facility] | | | 25 HYDROXY | | | LABORATORY | | | | | | SERVICES, | | | | | | CORE | | + + + + + + + + | Specimen | + + | Blood - Blood | | (substance) | + + + + + | Narrative | Performed At | + + + | Reference Interval: 0-18years: Deficiency: <20 ng/mL | [facility] | | Optimum level: >or=20 ng/mL | LABORATORY | | >18years: Deficiency: <20 | SERVICES, CORE | | ng/mL Insufficiency: 20-29 ng/mL | | | Optimum Level: 30-80 ng/mL High: | | | 81-150 ng/ml Toxic: >150 ng/mL | | + + + + + + + + | Performing | Address | City/State/Zipcode | Phone Number | | Organization | | | | + + + + + | [facility] | [address] | [place] [address] | | | SERVICES, CORE | [address] | | | + + + + + TSH (01/06/2018 4:48 PM PDT) + +-------+ + + + | Component | Value | Ref Range | Performed | Pathologist | | | | | At | Signature | + +-------+ + + + | TSH | 3.91 | 0.39 - 4.17 | [facility] | | | | | mIU/L | LABORATORY | | | | | | SERVICES, | | | | | | CORE | | + +-------+ + + + + + | Specimen | + + | Blood - Blood | | (substance) | + + + + + | Narrative | Performed At | + + + | TSH reference ranges are influenced by a variety of environmental | [facility] | | influences, age, gender and ethnicity. The supplied reference limits | LABORATORY | | are based on published values utilizing a similar TSH assay, and | SERVICES, CORE | | should be interpreted with caution. | | + + + + + + + + | Performing | Address | City/State/Zipcode | Phone Number | | Organization | | | | + + + + + | [facility] | [address] | [place] [address] | | | SERVICES, [place] | [address] | | | + + + + + 12 LEAD ECG (01/06/2018 4:25 PM PDT) + + + + + + | Component | Value | Ref Range | Performed | Pathologist | | | | | At | Signature | + + + + + + | VENTRICULAR | 57 | bpm | [facility] | | | RATE | | | OF | | | | | | CARDIOLOGY | | + + + + + + | ATRIAL RATE | 57 | ms | [facility] | | | | | | OF | | | | | | CARDIOLOGY | | + + + + + + | P-R | 162 | ms | [facility] | | | INTERVAL | | | OF | | | | | | CARDIOLOGY | | + + + + + + | P AXIS | 52 | deg | [facility] | | | | | | OF | | | | | | CARDIOLOGY | | + + + + + + | QRS | 103 | ms | [facility] | | | DURATION | | | OF | | | | | | CARDIOLOGY | | + + + + + + | QT | 431 | ms | [facility] | | | | | | OF | | | | | | CARDIOLOGY | | + + + + + + | QTCB | 420 | ms | [facility] | | | | | | OF | | | | | | CARDIOLOGY | | + + + + + + | R AXIS | -13 | deg | [facility] | | | | | | OF | | | | | | CARDIOLOGY | | + + + + + + | T AXIS | 24 | deg | [facility] | | | | | | OF | | | | | | CARDIOLOGY | | + + + + + + | ECG | Sinus bradycardia- | | [facility] | | | IMPRESSION | OTHERWISE NORMAL ECG - | | OF | | | | | | CARDIOLOGY | | + + + + + + | ECG | Electronically signed | | [facility] | | | IMPRESSION | by: HUMBLE BURK | | OF | | | | 01-07-2018 22:38:11 | | CARDIOLOGY | | + + + + + + + + | Specimen | + + | | + + + + + | Narrative | Performed At | + + + | | | + + + + + + + + | Performing | Address | City/State/Zipcode | Phone Number | | Organization | | | | + + + + + | [facility] | [id number] | [place], [place] | | | CARDIOLOGY | [address] | [address] | | + + + + + documented in this encounter Visit Diagnoses + + | Diagnosis | + + | Morbid obesity with BMI of 40.0-44.9, adult (HCC) - Primary | + + | Borderline diabetes Other abnormal glucose | + + | Essential hypertension | + + | Mild intermittent asthma without complication Unspecified asthma | + + | Anxiety Anxiety state, unspecified | + + | Ventral hernia with obstruction and without gangrene Ventral hernia, unspecified, | | with obstruction | + + | Stress incontinence in female | + + documented in this encounter
--- OUTSIDE RECORDS SUMMARY | ~2019-09-27 | XMS | Encounter Summary ---
Demographics + + + | Address | [address] | | | [place] [address] | + + + | Home Phone | | + + + | Preferred Language | Unknown | + + + | Marital Status | | + + + | Lutheran Affiliation | CHR | + + + [...] [place] | | | | | [address] | | + + + + + Care Team Providers + +------+ + | Care Cell Operation Supervisor Name | Role | Phone | + +------+ + | Aleshia Martinez PA-C | PCP | | + +------+ + Reason for Visit + + + | Reason | Comments | + + + | History and physical | | | examination | | + + + Consultation (Routine) [...] | [facility] | | | with STATION INSTALLATION SUPERVISOR | | obesity | Ganesh Holden MD | [facility] [address] | | | | | (HCC) | [address] | | | | | Procedures | Alonso Regan | Mailcode: | | | | | CONSULT TO | Jessica Sepulveda | [facility] | | | | BARIATRIC | [place], [place] | Health and | | | | | SURGERY | [address] | Healing, | | | | | | | [address] | | | | | | | [place], [place] | | | | | | | [address] | | | | | | | Phone: | | | | | | | [phone] | | | | | | | Fax: | | | | | | | [phone] | + + + + + + + Encounter Details +--------+---------+ + + + | Date | Type | Department | Care Team | Description | +--------+---------+ + + + | 06/16/ | Office | Digestive Health | Gildardo Downing, | Morbid obesity with | | 2017 | Visit | Center at [facility] [address] | MD [address] | BMI of 40.0-44.9, | | | | [address] | [place], [place] | adult (HCC) (Primary | | | | Mailcode: Center | [address] | Dx); Essential | | | | for Health and | [phone] | hypertension; | | | | Healing, [address] | | Ventral hernia with | | | | [place], [place] | | obstruction and | | | | [address] | | without gangrene | | | | [phone] | | | +--------+---------+ + + + [...] + + + | Blood Pressure | 117/77 | 06/16/2018 9:46 AM | | | | | PDT | | + + + + + | Pulse | 68 | 06/16/2018 9:46 AM | | | | | PDT | | + + + + + | Temperature | 36.6 C (97.8 F) | 06/16/2018 9:46 AM | | | | | PDT | | + + + + + | Respiratory Rate | 18 | 06/16/2018 9:46 AM | | | | | PDT | | + + + + + | Oxygen Saturation | - | - | | + + + + + | Inhaled Oxygen | - | - | | | Concentration | | | | + + + + + | Weight | 122.5 kg (270 lb) | 06/16/2018 9:46 AM | | | | | PDT | | + + + + + | Height | 167.6 cm (5' 6") | 06/16/2018 9:46 AM | | | | | PDT | | + + + + + | Body Mass Index | 43.58 | 06/16/2018 9:46 AM | | | | | PDT | | + + + + + documented in this encounter Patient Instructions Patient Instructions Gildardo Downing MD - 06/16/2018 9:20 AM PDTPlease visit with our [facility] Surgical Dental Assistant (RD) for instructions about your Bariatric diet, assistance with calorie c ounts, tips and tricks for working with your diet restrictions, and recipes after bariatric surgery. Daily yogurt; even just 1 tablespoon twice a day will provide enough probiotics to optimize digestion. Try to use a high-quality, probiotic-dense yogurt (eg Marielena's, Marcello, Enrico alberto Kefir, Housing Grant Analyst Dom's Hebrew Yogurt). Remember to chew your food well, eat small bites, and work on eating slowly. Avoid drinkin g fluid within 20 min before or after meals. Try to exercise at least 30 min four times each week. Try to add some strength training a nd resistance work, in addition to cardio exercise. Water exercises can be very useful if y ou have joint pain/back pain or other limitations. Check with your local gyms and [employer] /community centers for classes. Our psychologist is available to see you after surgery, if you are feeling stressors or nee d emotional support. Please let us know if you'd like to see them. We have monthly support groups and an online facebook support group. We encourage particip ation in a support group as this does encourage healthy habits and reinforces all of the thi ngs your learned in your classes and during appointments with our RD. Smoking: We strongly discourage nicotine use after surgery. Nicotine reduces oxygen to the healing stomach. There are also half-way complications of poor wound healing and gastric u lcers. These ulcers are started by smoking or using other nicotine products (vapor cigarett es etc). Gastric bypass patients should also avoid NSAIDS(ibuprofen, advil, motrin, naprosyn/naproxe n/aleve) to prevent gastric/marginal ulcers. Control (FOR FEMALES OF REPRODUCTIVE AGE): Bariatric surgery can markedly improve in fertility, or make you more fertile. For the first 18 months after bariatric surgery, we re commend good control as rapid weight loss puts you at very high risk for miscarriage. We DO NOT recommend until you are at least 18month after surgery. Be proactive in your healthcare. Followup with your PCP. Get your regular screening exams such as mammograms, colonoscopies etc. Know your insurance and your insurance benefits, an d if they are ever unclear, call your insurance company for clarification (look on the back of your insurance card for the contact phone number). documented in this encounter Progress Notes Gildardo Downing MD - 06/16/2018 9:20 AM PDTFormatting of this note might be different fro m the original. BARIATRIC SURGERY EXAM & RISK ASSESSMENT DATE OF VISIT: 06/16/18 HISTORY: Sara Caballero is a 32 y.o. female who has failed prior attempts at sustai alex dietary/medical weight loss and desires surgical weight loss in order to get a more defi nitive hernia repair. She has VHR/IHR x 4 now. She has had major complications after some of her surgeries, to include mesh removal for infection, and ongoing subq abscess. This all started with fallopian tube excision in 2012- chronic infection. Has chronic pain at abdominal wall. Has diverticulitis. Can walk 4 miles without stopping. She also swims regularly. Past Medical History: Diagnosis Date Anxiety Asthma Depression Diverticulitis Glucose intolerance (impaired glucose tolerance) HTN (hypertension) Irregular periods Morbid obesity with BMI of 40.0-44.9, adult (HCC) Pneumonia Ventral hernia, recurrent Past Surgical History Procedure Laterality Date Diagnostic laparoscopy 2009 Fallopian tube transection 2012 Ventral hernia repair with mesh 2013 Hernia repair 2015 Addition of mesh implant to ventral hernia repair 2015 Current Outpatient Prescriptions Medication Sig acetaminophen 325 mg oral tablet Take 2 tablets by mouth every six hours as needed for pain. Cut tablet into small pieces. Do not crush. ALBUTEROL INHL Inhale as needed. ATENOLOL ORAL Take 50 mg by mouth once daily. Bacillus coagulans/inulin (PROBIOTIC WITH PREBIOTIC ORAL) Take by mouth. cetirizine 10 mg oral tablet Take 10 mg by mouth once daily. Cholecalciferol (Vitamin D3) (VITAMIN D3) 5,000 unit oral tablet Take 1 tablet by mouth once daily. Indications: Vitamin D Deficiency (Patient not taking: Reported on 06/16/2018) desogestrel-ethinyl estradiol (ENSKYCE) 0.15-0.03 mg oral tablet Take 1 tablet by mouth once daily. ergocalciferol 50,000 unit oral capsule Take 1 capsule by mouth every seven days. Indic ations: Vitamin D Deficiency (High Dose Therapy) (Patient not taking: Reported on 06/16/2018) fluticasone 50 mcg/actuation nasal spray,suspension Instill 2 sprays into each nostril as needed. glycerin (ADULT) rectal suppository Unwrap and insert 1 suppository rectally once daily as needed (for constipation). HYDROcodone-acetaminophen 5-325 mg oral tablet Take 1 tablet by mouth every six hours a s needed. IBUPROFEN ORAL Take by mouth as needed. LACTOBAC 40/BIFIDO 3/S.THERMOP (PROBIOTIC ORAL) Take by mouth once daily. omeprazole 20 mg oral capsule,delayed release(DR/EC) Take 1 capsule by mouth once daily in the morning. Open the capsule and mix into sugar-free liquid or yogurt. ondansetron ODT 4 mg oral tablet,disintegrating Dissolve 1 tablet on tongue and swallow every six hours as needed for nausea/vomiting. polyethylene glycol 17 gram/dose oral powder Dissolve 17 g (1 capful) into 4 ounces of liquid and drink once daily as needed for constipation. sertraline 50 mg oral tablet Take 75 mg by mouth once daily. simethicone chew 80 mg oral tablet,chewable Chew and swallow 1 tablet four times daily as needed for gas/bloating. ursodiol 300 mg oral capsule Take 1 capsule by mouth two times daily. Start taking two weeks after your surgery. No current facility-administered medications for this visit. Allergies Allergen Reactions Adhesive Rash Iodine Contrast [Contrast Medium] Rash Latex Rash Naproxen Rash Family History Problem Relation Diabetes Mother High blood pressure Mother hyperlipidemia High blood pressure Brother hyperlipidemia Allergies Brother Social History Narrative None on file REVIEW OF SYSTEMS: All 14 systems reviewed and negative except as noted above. PHYSICAL EXAMINATION: BP 117/77 | Pulse 68 | Temp (Src) 36.6 C (97.8 F) (Oral) | RR 18 | Ht 1.676 m (5' 6") | Wt 122.5 kg (270 lb) | BMI 43.58 kg/(m^2) GENERAL: Well nourished, well developed and in no apparent distress, alert and active. HEENT: Grossly within normal limits. NECK: Supple, full range of motion. SKIN: No visible rashes. CHEST: Respirations even and unlabored. CARDIAC: Extremities warm and well perfused. ABDOMEN: Soft, nontender, nondistended, no mass, no hepatosplenomegaly. Low midline incisio n GROINS/: Deferred. EXTREMITIES: No edema, normal range of motion. NEUROLOGIC: Moves all extremities spontaneously. No apparent neurologic deficits. Cranial nerves 2-12 grossly intact. Gait symmetric and age appropriate. ASSESSMENT:: A(n) 32 y.o. female who meets and or exceeds NIH criteria for morbid obesity a nd comorbidities related to obesity including HTN which may be improved with bariatric surge ry. PLAN: Laparoscopic sleeve gastrectomy DISCUSSION: A full PARQ session was held. We had a lengthy discussion regarding laparoscopi c gastric bypass verses sleeve gastrectomy. The risks of both procedures were discussed and include but are not limited to , myocardial infarction, stroke, bleeding, infection, an astomotic leak, anastomotic stricture, gastric conduit torsion, gastric conduit stenosis, de velopment or worsening of gastroesophageal reflux disease, DVT/PE, injury to bowel or other structures upon entering the abdomen, conversion to an open procedure, internal hernia, inci sional hernia especially if converted to an open procedure, bowel obstruction, chronic nause a, and chronic nutritional/vitamin deficiencies despite supplementation. In addition, the ri sk of poor or no weight loss was discussed. The patient s expected weight loss of approxim ately 50-60% of excess body weight for sleeve gastrectomy and 50-70% for gastric bypass was calculated for this patient s height and current weight, along with the fact that there is a wide range of weight loss results after bariatric surgery. Rare patients do not lose much weight at all after bariatric surgery, and this variability is thought to be due to genetic differences among patients that are not yet fully understood. I quoted an approximate overa ll 7-8% risk of all carmine-operative complications in the carmine-operative period, a 1-5% risk o f serious carmine-operative complications, a 4-5% rate of reoperation over the terminologist (i.e. years), as well as other late complications that may or may not require operation or other i ntervention. I stressed that all complication rates and outcomes were estimates only. The pa tienelson appeared to understand, was given an opportunity to ask questions, and agrees to proce ed. Sara is willing to comply with postoperative care and be compliant with followup appointmen ts and programmatic recommendations for diet and exercise, as well as counseling/emotional s upport long-term. We discussed that sleeve gastrectomy does not treat GERD and can, in fact,worsen heartburn/ GERD. No GERD presently. We discussed increased fertility after wt loss surgery and need for control. We discussed possible complications, and if any occur, they may need longer hospitalization and additional procedures. We discussed the specific complications as outlined above, specifically addressing the fact that leak rates may be higher for sleeve gastrectomy than gastric bypass, and may approach 5%. We reviewed the [facility] consent form. We discussed that we did not cover all possible risks and outcomes, but that I have provided the patient with a summary of the most common and im portant risks. We discussed the possibility of blood transfusion or liver biopsy with attend ant risks, the need for sedation and anesthesia with attendant risks that would be reviewed in detail with the anesthesiologists, the possibility that observers may be present and phot ographs may be taken in the operating room for teaching purposes, and that all of observers and photographs will be compliant with HIPPA. We discussed the fact that fellows and residen ts would be involved in intra-operative and post-operative care but that I will be the prima ry surgeon, present for the entire procedure, and manage and supervise all care delivered. W mayte discussed the fact that if we encounter anything unexpected in the operating room (for exa mple cirrhosis or tumors) that I would adjust the operative plan accordingly based on my bes t judgment. The patient appeared to understand, was given an opportunity to ask questions, a nd agrees to proceed. I spent 38 minutes with the patient and >50% of this time was spent counseling the patient about surgery and surgical risks/expectations as mentioned above. Electronically signed on 06/16/2018 at 9:56 AM GILDARDO DOWNING MD. documented in this en counter Plan of Treatment +--------+---------+ + + + | Date | Type | Specialty | Care Team | Description | +--------+---------+ + + + | 10/05/ | Office | Surgery | Shu, | | | 2018 | Visit | | MD Bryson [address] | | | | [address] | | | | | | [place], [place] | | | | | | [address] | | | | | | [phone] | | | | | | | [...] | | with obstruction | + + documented in this encounter
--- OUTSIDE RECORDS SUMMARY | ~2019-09-27 | XMS | Encounter Summary ---
Demographics + + + | Address | [address] | | | [place] [address] | + + + | Home Phone | | + + + | Preferred Language | Unknown | + + + | Marital Status | | + + + | Baptist Affiliation | CHR | + + + | Race | White | + + + | Ethnic Group | Not or | + + + Author + + + | Author | [facility] | + + + | Organization | [facility] | + + + | Address | Unknown | + + + | Phone | Unavailable | + + + Support + + + + + | Name | Relationship | Address | Phone | + + + + + | Stewart Corbett | ECON | [address] | | | | | [place] | | | | | [address] | | + + + + + Care Team Providers + +------+ + | Care Tobacco Sample Puller Name | Role | Phone | + +------+ + | Aleshia Martinez PA-C | PCP | | + +------+ + Encounter Details +--------+ + + + + | Date | Type | Department | Care Team | Description | +--------+ + + + + | 10/26/ | Documentati | Digestive Health | Clinic, Surgery | | | 2018 | on | Center at [facility] [address] | | | | | | [address] | | | | | | Mailcode: Center | | | | | | for Health and | | | | | | Healing, [address] | | | | | | [place], [place] | | | | | | [address] | | | | | | [phone] | | | +--------+ + + + [...] | 10/05/ | Office | Surgery | Shu | | | 2019 | Visit | | MD Bryson [address] | | | | | [address] | | | | | | [place], [place] | | | | | | [address] | | | | | | [phone] | | | | | | | | +--------+---------+ + + + documented as of this encounter Visit Diagnoses Not on filedocumented in this encounter"
--- OUTSIDE RECORDS SUMMARY | ~2019-09-27 | XMS | Encounter Summary ---
Demographics + + + | Address | [address] | | | [place] [address] | + + + | Home Phone | | + + + | Preferred Language | Unknown | + + + | Marital Status | | + + + | Moravian Affiliation | CHR | + + + | Race | White | + + + | Ethnic Group | Not or | + + + Author + + + | Author | [facility] | + + + | Organization | [facility] | + + + | Address | Unknown | + + + | Phone | Unavailable | + + + Support + + + + + | Name | Relationship | Address | Phone | + + + + + | Stewart Corbett | ECON | [address] | | | | | [place] | | | | | [address] | | + + + + + Care Team Providers + +------+ + | Care Xerox Machine Mechanic Name | Role | Phone | + +------+ + | Aleshia Martinez PA-C | PCP | | + +------+ + Encounter Details +--------+ + + + + | Date | Type | Department | Care Team | Description | +--------+ + + + + | 02/25/ | Telephone | Digestive Health | Es Rausch, | | | 2018 | | Center at [facility] [address] | [address] | | | | | [address] | [facility] [place] | | | | | Mailcode: Center | [address] | | | | | for Health and | [phone] | | | | | [facility], [address] | | | | | | [place], [place] | | | | | | [address] | | | | | | [phone] | | | +--------+ + + + [...] [address] | | | | | | [place], [place] | | | | | | [address] | | | | | | [phone] | | | | | | | | +--------+---------+ + + + documented as of this encounter Visit Diagnoses Not on filedocumented in this encounter"
--- OUTSIDE RECORDS SUMMARY | ~2019-09-27 | XMS | Encounter Summary ---
Demographics + + + | Address | [address] | | | [place] [address] | + + + | Home Phone | | + + + | Preferred Language | Unknown | + + + | Marital Status | | + + + | Holiness Affiliation | CHR | + + + [...] [place] | | | | | [address] | | + + + + + Care Team Providers + +------+ + | Care Quality Assurance Nurse Name | Role | Phone | + +------+ + | Aleshia Martinez PA-C | PCP | | + +------+ + Encounter Details +--------+ + + + + | Date | Type | Department | Care Team | Description | +--------+ + + + + | 01/07/ | Telephone | Digestive Health | Yumiko Clarke, | | | 2017 | | Center at [facility] [address] | [facility] [address] | | | | | [address] | [place] [facility] [place] | | | | | Mailcode: Center | [address] | | | | | for Health and | [phone] | | | | | [facility], [address] | | | | | | [place], [place] | | | | | | [address] | | | | | | [phone] | | | +--------+ + + + [...] [address] | | | | | | [place], [place] | | | | | | [address] | | | | | | [phone] | | | | | | | [...] | with obstruction | + + | Vitamin D deficiency disease Unspecified vitamin D deficiency | + + documented in this encounter"
--- OUTSIDE RECORDS SUMMARY | ~2019-09-27 | XMS | Encounter Summary ---
Demographics + + + | Address | [address] | | | [place] [address] | + + + | Home Phone | | + + + | Preferred Language | Unknown | + + + | Marital Status | | + + + | Uatsdin Affiliation | CHR | + + + [...] [place] | | | | | [address] | | + + + + + Care Team Providers + +------+ + | Care Fryer Line Helper Name | Role | Phone | + +------+ + | Aleshia Martinez PA-C | PCP | | + +------+ + Reason for Visit +--------+ + | Reason | Comments | +--------+ + | Other | care everywhere encounter | +--------+ + Encounter Details +--------+ + + + + | Date | Type | Department | Care Team | Description | +--------+ + + + + | 01/28/ | Documentati | Digestive Health | Yumiko Clarke, | Other (care | | 2018 | on | Center at [facility] [address] | [facility] [address] | everywhere | | | | [address] | [address] [place], [place] | encounter) | | | | Mailcode: Center | [address] | | | | | for Health and | [phone] | | | | | [facility], [facility] [address] | | | | | | [place], [place] | | | | | | [address] | | | | | | [phone] | | | +--------+ + + + [...] 2019 | Visit | | MD Bryson [address] | | | | [address] | | | | | | [place], [place] | | | | | | [address] | | | | | | [phone] | | | | | | | | +--------+---------+ + + + documented as of this encounter Visit Diagnoses Not on filedocumented in this encounter"
--- OUTSIDE RECORDS SUMMARY | ~2019-09-27 | XMS | Encounter Summary ---
Demographics + + + | Address | [address] | | | [place] [address] | + + + | Home Phone | | + + + | Preferred Language | Unknown | + + + | Marital Status | | + + + | Jew Affiliation | CHR | + + + | Race | White | + + + | Ethnic Group | Not or | + + + Author + + + | Author | [facility] | + + + | Organization | [facility] | + + + | Address | Unknown | + + + | Phone | Unavailable | + + + Support + + + + + | Name | Relationship | Address | Phone | + + + + + | Stewart Corbett | ECON | [address] | | | | | [place] | | | | | [address] | | + + + + + Care Team Providers + +------+ + | Care Commercial Real Estate Appraiser Name | Role | Phone | + +------+ + | Aleshia Martinez PA-C | PCP | | + +------+ + Encounter Details +--------+ + + + + | Date | Type | Department | Care Team | Description | +--------+ + + + + | 09/22/ | Procedure | 6A Intra Op [facility] | | | | 2019 | Pass | [facility] | | | | | | Admitting Desk | | | | | | Located on the 9th | | | | | | floor [address] | | | | | | [address] | | | | | | [place], [place] | | | | | | [address] | | | +--------+ + + + [...] Comments | + + +---------+ + | Yes | | | once per month | + + +---------+ + + + [...] [address] | | | | | | [place], [place] | | | | | | [address] | | | | | | [phone] | | | | | | | | +--------+---------+ + + + documented as of this encounter Visit Diagnoses Not on filedocumented in this encounter"
--- OUTSIDE RECORDS SUMMARY | ~2019-09-27 | XMS | Encounter Summary ---
Demographics + + + | Address | [address] | | | [place] [address] | + + + | Home Phone | | + + + | Preferred Language | Unknown | + + + | Marital Status | | + + + | Latter Day Affiliation | CHR | + + + [...] [place] | | | | | [address] | | + + + + + Care Team Providers + +------+ + | Care Putty Patcher Name | Role | Phone | + +------+ + | Aleshia Martinez PA-C | PCP | | + +------+ + Reason for Visit Physical Therapy (Routine) +--------+--------+ + + + + | Status | Reason | Specialty | Diagnoses / | Referred By | Referred To | | | | | Procedures | Contact | Contact | +--------+--------+ + + + + | Closed | | Physical | Diagnoses | Iris, | Erinn Pt Chh1 | | | | Therapy | Morbid | Mary W, | [address] | | | | | obesity | AGACNP [address] | | | | | (HCC) | [address] | Mailcode: | | | | | Procedures | Monica, | [address] | | | | | PHYSICAL | [place] | for Health | | | | | THERAPY | [address] | and Healing, | | | | | REFERRAL | Phone: | Building 1, | | | | | | | [address] Floor | | | | | | Fax: | [place], [place] | | | | | | [phone] | [address] | | | | | | | Phone: | | | | | | | [phone] | | | | | | | Fax: | | | | | | | [phone] | +--------+--------+ + + + + Encounter Details +--------+---------+ + + + | Date | Type | Department | Care Team | Description | +--------+---------+ + + + | 01/06/ | Office | [facility] | Nesha Hannon, PT | Morbid obesity with | | 2018 | Visit | Therapy Services at | [address] | BMI of 40.0-44.9, | | | | [facility] | [address] [place], | adult (HCC) (Primary | | | | [address] | [place] [address] | Dx); Essential | | | | Mailcode: CH3P | [phone] | hypertension; | | | | [facility] | | Ventral hernia with | | | | and Healing, | | obstruction and | | | | [address] | | without gangrene; | | | | Floor [place], [place] | | Physical | | | | [address] | | deconditioning | | | | [phone] | | | +--------+---------+ + + + [...] documented as of this encounter Progress Notes Nesha Hannon, PT - 01/06/2018 1:00 PM PDT Insurance: Payor: WORKERS COMP OTHER / Plan: WORKERS COMP OTHER / Product Type: Workers Com p / Non-Medicare [facility] PHYSICAL THERAPY EVALUATION Past Medical [...] mesh implant to ventral hernia repair 2014 Current Outpatient Prescriptions: ALBUTEROL INHL, Inhale as [...] pain is not a significant clinical problem [facility] PHYSICAL THERAPY EVALUATION History of [...] to work due to pain/injury. lives [facility]. Living situation/environment is limiting function: no Equipment [...] Moderate - Moderate complexity Complexity: Moderate - 84883 The patient requires services that can be [...] regarding any change in their status. NESHA HANNON PT [facility] AT [facility] 1ST FLOOR Scheduled Appointment time: [...] 1 Referral information Authorizing Provider: MARY ADAMS [[id number]] Onset/Referral Date: 10/27/17 Primary/Referral Diagnosis: E66.01, Z68.41 Morbid obesity with BMI of 40.0-44.9, adult (H CC) I10 Essential hypertension K43.6 Ventral hernia with obstruction and without gangrene R53.81 Physical deconditioning Start of care: 01/06/2018 Service period from: 01/06/2018 to: - Next progress report 02/05/2018 Insurance: Payor: WORKERS COMP OTHER / Plan: WORKERS COMP OTHER / Product Type: [employer] p / G-code:- code not needed. Number visits authorized: 1 Number visits used: 1 Outcome Measure 01/06/2018 Activity 1 (3 point increase is significant for any one activity): 3 (standing for more than 1 hour) Activity 2: 3 (washing dishes) Activity 3: 3 (lying to sitting) Activity 4: 0 Activity 5: 0 Patient Specific Functional Scale Total Score: 9 documented in this enco unter Plan of Treatment +--------+---------+ + + + | Date | Type | Specialty | Care Team | Description | +--------+---------+ + + + | 10/05/ Office | Surgery | Shu, | | | 2018 | Visit | | MD Bryson [address] | | | | | [address] | | | | | | [place], [place] | | | | | | [address] | | | | | | [phone] | | | | | | | | +--------+---------+ + + + documented as of this encounter Procedures + +--------+ + + + | Procedure Name | Priori | Date/Time | Associated Diagnosis | Comments | | | ty | | | | + +--------+ + + + | [facility] | Routin | 01/10/2018 | Morbid [...] | with obstruction | + + | Physical deconditioning Debility, unspecified | + + documented in this encounter"
--- OUTSIDE RECORDS SUMMARY | ~2019-09-27 | XMS | Encounter Summary ---
Demographics + + + | Address | [address] | | | [place] [address] | + + + | Home Phone [...] [place] | | | | | [address] | | + + + + + Care Team Providers + +------+ + | Care Inspector Brake Lining Name | Role | Phone | + +------+ + | No Pcp Per Patient | PCP | Unavailable | + +------+ + Encounter Details +--------+ + + + + | Date | Type | Department | Care Team | Description | +--------+ + + + + | 09/21/ | Abstract | Digestive Health | Clinic, Surgery | | | 2016 | | [place] [facility] [address] | | | | | | [address] | | | | | | Mailcode: [place] | | | | | | [facility] and | | | | | | Healing, Building 2 | | | | | | [place], [place] | | | | | | [address] | | | | | | [phone] | | | +--------+ + + + [...] Rd | | | | | | [place], [place] | | | | | | [address] | | | | | | [phone] | | | | | | | | +--------+---------+ + + + documented as of this encounter Visit Diagnoses Not on filedocumented in this encounter"
--- OUTSIDE RECORDS SUMMARY | ~2019-09-27 | XMS | Encounter Summary ---
Demographics + + + | Address | [address] | | | [place] [address] | + + + | Home Phone | | + + + | Preferred Language | Unknown | + + + | Marital Status | | + + + | Rastafarian Affiliation | CHR | + + + [...] [place] | | | | | [address] | | + + + + + Care Team Providers + +------+ + | Care Diesel Locomotive Crane Operator Name | Role | Phone | + +------+ + | Aleshia Martinez PA-C | PCP | | + +------+ + Reason for Visit + + + | Reason | Comments | + + + | Outside Records | 01/22/2018 ED [facility] | | Received | | + + + Encounter Details +--------+ + + + + | Date | Type | Department | Care Team | Description | +--------+ + + + + | 01/25/ | Abstract | Digestive Health | Yumiko Clarke, | Outside Records | | 2018 | | [place] [address] | [facility] [address] | Received (01/22/2018 | | | | [place] Mailcode: CH4S | [place], [place] | ED Notes- [facility] | | | | [facility] | [address] | [place]) | | | | and Healing, | [phone] | | | | | [facility] | | | | | | [place], [place] | | | | | | [address] | | | | | | [phone] | | | +--------+ + + + [...] Rd | | | | | | [place] | | | | | | [address] | | | | | | [phone] | | | | | | | | +--------+---------+ + + + documented as of this encounter Visit Diagnoses Not on filedocumented in this encounter"
--- OUTSIDE RECORDS SUMMARY | ~2019-09-27 | XMS | Encounter Summary ---
Demographics + + + | Address | [address] | | | [place] [address] | + + + | Home Phone | | + + + | Preferred Language | Unknown | + + + | Marital Status | | + + + | Samaritan Affiliation | CHR | + + + [...] [address] | | | | | [place] | | | | | [address] | | + + + + + Care Team Providers + +------+ + | Care Statistical Analyst Name | Role | Phone | [...] | | | or gangrene | | [place] for | | | | | | | Health and | | | | | | | Healing, | | | | | | | Building [address] | | | | | | | [place], [place] | | | | | | | [address] | | | | | | | Phone: | | | | | | | [phone] | | | | | | | Fax: | | | | | | | [phone] | + +--------+ + + + + [...] | | | [address] | [address] | (Primary Dx) | | | | Mailcode: Center | [place], [place] | | | | | for Health and | [address] | | | | | [facility] [place] [address] | | | | | | [place], [place] | | | | | | [address] | | | | | | [phone] | | | +--------+---------+ + + + [...] of visit: 10:00 to 10:28 (28 minutes poif-sp-rqsj with patient) Surgery: Sleeve Gastrectomy Date of [...] multivitamin & mineral (with iron) supplement, 2/day -9465-0300 mg calcium citrate with vitamin D/day (take in divided doses, not within 2 hour s of multivitamin or iron supplement) -500 mcg/day sublingual B12 supplement (or monthly injections) Continued to reinforce importance of mindful eating. Continue to increase physical activity. Follow up in [address], Pager # [phone] signed by Tea Reece RD at 11/25/2018 10:38 AM PSTdocument ed in this encounter Plan of Treatment +--------+---------+ + + + | Date | Type | Specialty | Care Team | Description | +--------+---------+ + + + | 10/05/ | Office | Surgery | Shu, | | | 2018 | Visit | | MD Bryson [address] | | | | [address] | | | | | | [place], [place] | | | | | | [address] | | | | | | [phone] | | | | | | | | +--------+---------+ + + + documented as of this encounter Procedures + +--------+ + + + | Procedure Name | Priori | Date/Time | Associated Diagnosis | Comments | | | ty | | | | + +--------+ + + + | DC MNT RE-ASSESSMNT | Routin | 11/25/2018 | [...]
--- OUTSIDE RECORDS SUMMARY | ~2019-09-27 | XMS | Encounter Summary ---
Demographics + + + | Address | [address] | | | [place] [address] | + + + | Home Phone | | + + + | Preferred Language | Unknown | + + + | Marital Status | | + + + | Hinduism Affiliation | CHR | + + + [...] [place] | | | | | [address] | | + + + + + Care Team Providers + +------+ + | Care Credit Support Specialist Name | Role | Phone | [...] | | | 2018 | Event | [facility] | , [place] [address] | | | | | Admitting Desk | [address] | | | | | Located on the | [place], [place] | | | | | cox north [address] | [address] | | | | | [address] | [phone] | | | | | [place], [place] | | | | | | [address] | | | +--------+ + + + [...] Rd | | | | | | [place], [place] | | | | | | [address] | | | | | | [phone] | | | | | | | [...]
--- OUTSIDE RECORDS SUMMARY | ~2019-09-27 | XMS | Encounter Summary ---
Demographics + + + | Address | [address] | | | [place] [address] | + + + | Home Phone | | + + + | Preferred Language | Unknown | + + + | Marital Status | | + + + | Orthodox Affiliation | CHR | + + [...] [place] | | | | | [address] | | + + + + + Care Team Providers + +------+ + | Care Slope Tender Name | Role | Phone | [...] Rd | | | | | | [place] | | | | | | [address] | | | | | | [phone] | | | | | | | | +--------+---------+ + + + documented as of this encounter Visit Diagnoses Not on filedocumented in this encounter"
--- OUTSIDE RECORDS SUMMARY | ~2019-09-27 | XMS | Encounter Summary ---
Demographics + + + | Address | [address] | | | [place] [address] | + + + | Home Phone | | + + + | Preferred Language | Unknown | + + + | Marital Status | | + + + | Anglican Affiliation | CHR | + + + | Race | White | + + + | Ethnic Group | Not or | + + + Author + + + | Author | [facility] | + + + | Organization | [facility] | + + + | Address | Unknown | + + + | Phone | Unavailable | + + + Support + + + + + | Name | Relationship | Address | Phone | + + + + + | Stewart Corbett | ECON | [address] | | | | | [place] | | | | | [address] | | + + + + + Care Team Providers + +------+ + | Care Substance Abuse Technician Name | Role | Phone | + +------+ + | Aleshia Martinez PA-C | PCP | | + +------+ + Encounter Details +--------+ + + + + | Date | Type | Department | Care Team | Description | +--------+ + + + + | 09/16/ | MyChart | Digestive Health | Gildardo Downing, | RE: RE: RE: Odd pain | | 2017 | Encounter | Center at [facility] [address] | MD [address] | | | | | [address] | [place], [place] | | | | | Mailcode: Center | [address] | | | | | for Health and | | | | | | [facility] 2 | | | | | | [place], [place] | | | | | | [address] | | | | | | | [...] | | | | | | [place], [place] | | | | | | [address] | | | | | | [phone] | | | | | | | | +--------+---------+ + + + documented as of this encounter Visit Diagnoses Not on filedocumented in this encounter"
--- OUTSIDE RECORDS SUMMARY | ~2019-09-27 | XMS | Encounter Summary ---
Demographics + + + | Address | [address] | | | [place] [address] | + + + | Home Phone | | + + + | Preferred Language | Unknown | + + + | Marital Status | | + + + | Synagogue Affiliation | CHR | + + + | Race | White | + + + | Ethnic Group | Not or | + + + Author + + + | Author | [facility] | + + + | Organization | [facility] | + + + | Address | Unknown | + + + | Phone | Unavailable | + + + Support + + + + + | Name | Relationship | Address | Phone | + + + + + | Stewart Corbett | ECON | [address] | | | | | [place] | | | | | [address] | | + + + + + Care Team Providers + +------+ + | Care Patrol Agent Name | Role | Phone | + [...] [address] | ACNP [address] | consultation | | | | [address] | Ave [facility] [place] | (Bariatric | | | | Mailcode: Center | [address] | questionnaire) | | | | for Health and | [phone] | | | | | [facility] [address] | | | | | | [place], [place] | | | | | | [address] | | | | | | [phone] | | | +--------+ + + + [...] Rd | | | | | | [place], [place] | | | | | | [address] | | | | | | [phone] | | | | | | | | +--------+---------+ + + + documented as of this encounter Visit Diagnoses Not on filedocumented in this encounter"
--- OUTSIDE RECORDS SUMMARY | ~2019-09-27 | XMS | Encounter Summary ---
Demographics + + + | Address | [address] | | | [place] [address] | + + + | Home Phone [...] [place] | | | | | [address] | | + + + + + Care Team Providers + +------+ + | Care Statistical Machine Servicer Name | Role | Phone | [...] | 2018 | Encounter | Center at [facility] [address] | ACNP [address] | vitamin ok? | | | | [address] | Ave [place], [place] | | | | | Mailcode: Center | [address] | | | | | for Health and | [phone] | | | | | [facility] | | | | | | [place], [place] | | | | | | [address] | | | | | | [phone] | | | +--------+ + + + [...] Rd | | | | | | [place], [place] | | | | | | [address] | | | | | | [phone] | | | | | | | | +--------+---------+ + + + documented as of this encounter Visit Diagnoses Not on filedocumented in this encounter"
--- OUTSIDE RECORDS SUMMARY | ~2019-09-27 | XMS | Encounter Summary ---
Demographics + + + | Address | [address] | | | [place] [address] | + + + | Home Phone [...] [place] | | | | | [address] | | + + + + + Care Team Providers + +------+ + | Care Director Vaccine Name | Role | Phone | + +------+ + | Aleshia Martinez PA-C | PCP | | + +------+ + Encounter Details +--------+ + + + + | Date | Type | Department | Care Team | Description | +--------+ + + + + | 07/12/ | Abstract | Digestive Health | Clinic, Surgery | | | 2017 | | [facility] [facility] [address] | | | | | | [address] | | | | | | Mailcode: [place] | | | | | | for Health and | | | | | | Healing, Building [address] | | | | | | [place], [place] | | | | | | [address] | | | | | | [phone] | | | +--------+ + + + [...] Rd | | | | | | [place] | | | | | | [address] | | | | | | [phone] | | | | | | | | +--------+---------+ + + + documented as of this encounter Visit Diagnoses Not on filedocumented in this encounter"
--- OUTSIDE RECORDS SUMMARY | ~2019-09-27 | XMS | Encounter Summary ---
Demographics + + + | Address | [address] | | | [place] [address] | + + + | Home Phone [...] [place] | | | | | [address] | | + + + + + Care Team Providers + +------+ + | Care Heel Trimmer Name | Role | Phone | + [...] | | [address] | Ave [facility] [place] | (Bariatric | | | | Mailcode: Center | [address] | questionnaire) | | | | for Health and | [phone] | | | | | [facility] | | | | | | [place], [place] | | | | | | [address] | | | | | | [phone] | | | +--------+ + + + [...] Rd | | | | | | [place], [place] | | | | | | [address] | | | | | | [phone] | | | | | | | | +--------+---------+ + + + documented as of this encounter Visit Diagnoses Not on filedocumented in this encounter"
--- OUTSIDE RECORDS SUMMARY | ~2019-09-27 | XMS | Encounter Summary ---
Demographics + + + | Address | [address] | | | [place] [address] | + + + | Home Phone | | + + + | Preferred Language | Unknown | + + + | Marital Status | | + + + | Adventist Affiliation | CHR | + + + [...] [place] | | | | | [address] | | + + + + + Care Team Providers + +------+ + | Care Sampler And Test Preparer Name | Role | Phone | + +------+ + | Aleshia Martinez PA-C | PCP | | + +------+ + Encounter Details +--------+ + + + + | Date | Type | Department | Care Team | Description | +--------+ + + + + | 08/12/ | MyChart | Digestive Health | Clinic, Surgery | | | 2018 | Encounter | Center at [facility] [address] | | | | | | [address] | | | | | | Mailcode: Center | | | | | | for Health and | | | | | | Healing, Building [address] | | | | | | [place], [place] | | | | | | [address] | | | | | | [phone] | | | +--------+ + + + [...] Rd | | | | | | [place] | | | | | | [address] | | | | | | [phone] | | | | | | | | +--------+---------+ + + + documented as of this encounter Visit Diagnoses Not on filedocumented in this encounter"
--- OUTSIDE RECORDS SUMMARY | ~2019-09-27 | XMS | Encounter Summary ---
Demographics + + + | Address | [address] | | | [place] [address] | + + + | Home Phone [...] [place] | | | | | [address] | | + + + + + Care Team Providers + +------+ + | Care Pcmh Specialist Name | Role | Phone | [...] at | | | | | | [facility] | | | | | | [address] | | | | | | Mail Code: OC8PM | | | | | | [facility] | | | | | | and Healing, | | | | | | [address] | | | | | | [place], [place] | | | | | | [address] | | | | | | [phone] | | | +--------+ + + + + Anesthesia Record + + + + + | Procedure Name | Responsible | Anesthesia Start | Anesthesia Stop Time | | | Anesthesiologist | Time | | + + + + + | RECURRENT VENTRAL | Rafi Askew MD | 09/22/19 1158 | 09/22/19 7365 | | HERNIA REPAIR AND | | [...] | | Oral; Cuffed; 09/22/19; 1544 | TAWER | TAWER | +--------+ + + + documented in [...] exist, including nicotine patches and gum. The [place] Quit Line can also be reached at 1.800.QUIT.NOW ( ) or online at [email or web address]/[email or web address]. Surgery check-in location: [facility] Surgery Check in Time: you will receive a call 1-3 business days before your surgery confi rming your exact arrival/check-in time for your surgery day. We know that planning for surg lyndsay can be stressful and involve a lot of family/friend/transportation coordination as well as hotel arrangements. [facility] does not have access to check in [facility], and we encourage you to contact [...] ch as Uber/Lyft), or public transportation. An Uber/Lyft/regional refrigerated cdl truck driver does not count as the [...] it is after office hours, call the [facility] fine grade bulldozer operator at [phone] and ask them to page him or h er. documented in this encounter Plan of Treatment +--------+---------+ + + + | Date | Type | Specialty | Care Team | Description | +--------+---------+ + + + | 10/05/ | Office | Surgery | Shu, | | | 2018 | Visit | | MD Bryson [address] | | | | | [address] | | | | | | [place] | | | | | | [address] | | | | | | [phone] | | | | | | | | +--------+---------+ + + + documented as of this encounter Visit Diagnoses Not on filedocumented in this encounter
--- OUTSIDE RECORDS SUMMARY | ~2019-09-27 | XMS | Encounter Summary ---
Demographics + + + | Address | [address] | | | [place] [address] | + + + | Home Phone | | + + + | Preferred Language | Unknown | + + + | Marital Status | | + + + | Yarsani Affiliation | CHR | + + + [...] [place] | | | | | [address] | | + + + + + Care Team Providers + +------+ + | Care Early Childhood Associate Name | Role | Phone | + [...] | +--------+ + + + + | 08/01/ | Telephone-S | Preoperative | | Pre-op evaluation | | 2018 | cheduled | [facility] at | | | | | | MPV | | | | | | Stay [address] [facility] | | | | | | Jass Lopez | | | | | | Mailcode: [id number] | | | | | | Redd Atkinson | | | | | | [address] [place], [place] | | | | | | [address] | | | | | | [phone] | | | +--------+ + + + + Anesthesia Record + + + + + | Procedure Name | Responsible | Anesthesia Start | Anesthesia Stop Time | | | Anesthesiologist | Time | | + + + + + | LAPAROSCOPIC SLEEVE | Ke Strong DO, | 08/31/18 1223 | 08/31/18 1415 [...] Dorsal; | 08/31/18 1119 by | 09/02/18 165 by | | eral | Hand; 22 g; Positive; 09/02/18; | Reyna Groves RN | [place], | | IV | 1652; Discharge | | RN | +--------+ + + + | ETT | 08/31/18; 1334 (created via | 08/31/18 1334 by | 08/31/18 1403 by | | | procedure documentation); | Naeem Silva | Naeem Silva | | | Endotracheal Tube; 7.5; [...] of this encounter Patient Instructions Patient Instructions Clementina Gunn RN - 08/01/2018 12:21 PM PDT PREOPERATIVE INSTRUCTIONS Do not eat or drink anything after midnight the night before surgery. TAKE the following medications with a sip of water on the morning of surgery: None Do NOT take the following medications on the morning of surgery: ACETAMINOPHEN 325 MG TABLET ALBUTEROL INHL ATENOLOL ORAL PROBIOTIC WITH PREBIOTIC ORAL CETIRIZINE 10 MG TABLET CHOLECALCIFEROL (VITAMIN D3) 5,000 UNIT TABLET ENSKYCE 0.15 MG-0.03 MG TABLET ERGOCALCIFEROL (VITAMIN D2) 50,000 UNIT CAPSULE FLUTICASONE 50 MCG/ACTUATION NASAL SPRAY,SUSPENSION GLYCERIN (ADULT) RECTAL SUPPOSITORY HYDROCODONE 5 MG-ACETAMINOPHEN 325 MG TABLET IBUPROFEN ORAL - stop taking 7 days prior to procedure. OMEPRAZOLE 20 MG CAPSULE,DELAYED RELEASE ONDANSETRON HCL 8 MG TABLET ONDANSETRON 4 MG DISINTEGRATING TABLET POLYETHYLENE GLYCOL 3350 17 GRAM/DOSE ORAL POWDER SERTRALINE 50 MG TABLET SIMETHICONE 80 MG CHEWABLE TABLET URSODIOL 300 MG CAPSULE Unless Otherwise Directed by your Surgeon Do not take any Aspirin, vitamin E or non-ster oidal anti-inflammatory (NSAIDs i.e. Advil, Aleve, Ibuprofen) or herbal supplements seven da ys prior to your surgery. These drugs may interfere with normal blood clotting and may cause excessive bleeding and bruising during or after the surgery. If you are taking Coumadin (warfarin), Plavix or any other blood thinners please let you r surgical team know as medication changes will be necessary. If you need a pain medication for general purposes, use Tylenol as directed. If you are in doubt about any medications that you are taking, please contact our office . General Skin Cleansing Instructions for Bathing or Showers with Hibiclens Disclaimers: ? Hibiclens is not to be used on the head or face, keep out of the eyes, ears and mouth. ? Hibiclens is not to be used in the genital area. ? Hibiclens should not be used if you are allergic to chlorhexidine gluconate or any other ingredients in this preparation. Bathe or shower the night before your surgery: ? If you plan to wash your hair, do so with your regular shampoo. Then rinse hair and body thoroughly to remove any shampoo residue. ? Wash your face with your regular soap or water only. ? Thoroughly rinse your body with warm water from neck down. ? Use Hibiclens as you would any other liquid soap. Please do not put the Hibiclens on a wa sh cloth, apply directly to the skin and wash gently. Apply the minimum amount of Hibiclens necessary to cover the skin. Leave the Hibiclens on your skin for 1 minute, then rinse off. ? Rinse thoroughly with warm water. ? Do not use your regular soap after applying and rinsing Hibiclens. Use Hibiclens for a second day in a row (morning of surgery, as soon as you wake up): ? Shower/bathe again using Hibiclens in the same method as described above. ? Do not apply any lotions, deodorants, powders or perfumes to the body areas that have been cleaned with Hibiclens. Important Guidelines Do not shave the surgical area Do not smoke, drink alcohol or use recreational drugs for 24 hours before your surgery Do not eat any hard candy or chew gum after midnight the night before your surgery. Watch for any change in your health condition. Let your surgeon know right away if you do not feel well. Do not wear makeup, perfume, lotions or powder. Remove any nail belgian from at least one fingernail. Do not wear any jewelry to the hospital. Wear loose, comfortable clothing. Bring the case and solution for your contact lenses or wear your glasses. Leave all your valuables at home. Allow enough travel time so you re not late for your check in for surgery. Take a bath or shower and remember to shampoo your hair using your usual hair product be fore your arrival at the hospital. Please remember to brush your teeth the night before and the morning of your procedure. Surgery Check in Locations Admitting [facility] Surgery Check in Time: Someone from your surgeon's office or [facility] will provide you with information regarding your check in time. If you have any questions about this, pl ease contact your surgeon's office. Going Home Your surgical team will decide when you are medically ready to go home. If you are released to go home on the same day as your procedure/surgery please note the following: You will not be able to drive. You will be required to have a competent adult drive you or accompany you by taxi or pub lic transportation on the day of discharge. It is also required that you have a competent adult assist you and look after you on the first night after you have undergone regional blocks (72 hours for patients going home with regional block pump), deep sedation, and/or general anesthesia. If you stayed in the hospital after surgery, please arrange for your ride to come for yo u around 9AM on the day your doctor says you can go home. Check out time is 11AM. If you have questions or concerns after you go home, call your doctor s office. If it is after office hours, call the [facility] plasma table operator at [phone] and ask them to page your doc tor. documented in this encounter Plan of Treatment +--------+---------+ + + + | Date | Type | Specialty | Care Team | Description | +--------+---------+ + + + | 10/05/ | Office | Surgery | Shu, | | | 2018 | Visit | | MD Bryson [address] | | | | [address] | | | | | | [place], [place] | | | | | | [address] | | | | | | [phone] | | | | | | | | +--------+---------+ + + + documented as of this encounter Visit Diagnoses Not on filedocumented in this encounter"
--- OUTSIDE RECORDS SUMMARY | ~2019-09-27 | XMS | Encounter Summary ---
Demographics + + + | Address | [address] | | | [place] [address] | + + + | Home Phone [...] [place] | | | | | [address] | | + + + + + Care Team Providers + +------+ + | Care Steaming Cabinet Tender Name | Role | Phone | [...] 08/31/ | Surgery | 6A Intra Op [facility] | Gildardo Downing, | LAPAROSCOPIC SLEEVE | | 2017 | | [facility] | [address] | GASTRECTOMY with EGD | | | | Admitting Desk | [place], [place] | | | | | Located on the | [address] | | | | | floor [address] [facility] | [phone] | | | | | [facility] | | | | | | [place], [place] | | | | | | [address] | | | +--------+---------+ + + + [...] might be differen t from the original. [facility] RED SURGERY INPATIENT DISCHARGE SUMMARY Author: GAUTAM [...] or Kefir, [place] Yogurt, and Chioban i Romanian Yogurt are common brands with beneficial probiotics. [...] are available over the counter at most [facility] [employer] stores. Nausea/Vomiting/Difficulty Swallowing Nausea/Vomiting/Difficulty swallowing: Could [...] hours per your instructions. Some medications, like Lane, have Tylenol in it. Make sure you [...] (PCP) as this clinic does not provide [facility] chronic pain management services. When to Call [...] hours by calling the surgery office at [phone]. - After hours, weekends and holidays, you may call the hospital door machine operator at [phone] an d have the economics teacher Red Surgery Team paged. Destination Home Condition [...] Acute Care Why: follow up with bariatric RETURNS PROCESSOR Contact information [address] [address] Future Appointments Provider Department Dept Phone Center 09/07/2018 10:00 AM Chetna Alves [facility] 6th Floor [phone] KATIA D AND NUT 09/07/2018 10:50 AM Emily Martinez [facility] 6th Floor [phone] D ig Health 09/29/2018 10:30 AM Tea Reece [facility] 6th Floor [phone] F OOD AND NUT 09/29/2018 11:20 AM Gildardo Downing Digestive [facility] 6th Floor [phone] Di g Health 11/25/2018 10:00 AM Tea Reece [facility] 6th Floor [phone] FO OD AND NUT 11/25/2018 10:50 AM Shanon Etienne [facility]ive [facility] 6th Floor [phone] Dig [facility] Discharging Physician: GAUTAM Leblanc Attending Physician: Gildardo Downing MD [facility] Red Surgery Pager# [phone] 10:42 AM 09/02/2018 documented in th is [...] + + + +---------+ + + | Bacillus | Take by mouth. | | 0 | | | | coagulans/inulin | | | | | | | (PROBIOTIC WITH | | | | | | | PREBIOTIC ORAL) | | | | | | + [...] + + + +---------+ + + | | Take 1 tablet by | 1 | 0 | 09/02/20 | | | desogestrel-ethinyl | mouth once daily. | Package | | 18 | | | estradiol (ENSKYCE) | Hold for two weeks | | | | | | 0.15-0.03 mg oral | after surgery. | | | | | | tablet | | | | | | + + + +---------+ + + | fluticasone 50 | Instill 1 spray into | | 0 | | | | mcg/actuation nasal | each nostril as | | | | | | spray,suspension | needed. | | | | | + + + +---------+ + + | sertraline 50 mg | Take 75 mg by mouth | | 0 | | | | oral tablet | once daily. | | | | | + + + +---------+ + + documented as of this encounter Progress Notes CrowderSeverino - 09/01/2018 2:43 PM PSTDEPARTMENT OF SURGERY Red Surgery Admission Date: 08/31/2018 [...] SCDs in place Assessment and Plan: Sara Federico is a 33 y.o. female s/p laparoscopic sleeve gastrectomy with EGD and omentopexy of the gastric staple line. Recovering appropriately post-op. - FLD - Valium for esophageal spasms. - Pain controlled on PO meds - Lovenox, OOB, IS, SCDs - Likely d/c tomorrow Severino Crowder MS4 General Surgery Associated attestation - Gildardo Downing MD - 09/02/2018 6:59 AM PSTA student assisted wi documenting this service. I saw the patient and reviewed and verified all information doc umented by the student and made modifications to such information, when appropriate. Having some esophageal spasms with intake and at rest. Trial of benzo vs hyoscyamine to s ee if this helps. Gildardo Downing MD, FACS, [facility] Division of Bariatric Surgery [facility] | CH[address] | [place], [place] | [address] | Ludwin Tellez MD - 08/31/2018 8:54 [...] well perfused, SCDs in place A-P: Sara AguilarRuth is a 33 y.o. female s/p laparoscopic sleeve gastrectomy with EG D and omentopexy of the gastric staple line. Recovering appropriately. #Anti-emetics #Continue routine post-operative care #Continue current pain regimen Ludwin Tellez MD General Surgery, PGY1 Pager: [phone] documented in this en counter Plan of Treatment +--------+---------+ + + + | Date | Type | Specialty | Care Team | Description | +--------+---------+ + + + | 10/05/ | Office | Surgery | Shu, | | | 2018 | Visit | | MD Bryson [address] | | | | | [address] | | | | | | [place], [place] | | | | | | [address] | | | | | | [phone] | | | | | | | [...] GASTRECTOMY | ve | 12:25 PM | (HCC) | | | | Surgic | PST [...] + + + + | QTCB | 457 | ms | [facility] DEPT [...] + | [facility] OF | [address] [facility] | [place], [place] | | | CARDIOLOGY | [address] | [address] | | + + + + + [...] + + + + | [facility] | [address] | [place], [place] | | | CHARITO POINT OF CARE | [facility] | [address] | | | TESTS | | | [...] (H) | 60 - 99 mg/dL | [facility] - | | | GLUCOSE, | | [...] [facility] | [address] | [place], [place] | | | CHARITO [facility] | [facility] | [address] | | | TESTS | | | [...] SURGEON: Gildardo Downing MD. | | | MACHINE SHOP WORKER: Jamie Gonzales MD R6. ANESTHESIA: Ke Strong [...] | | | Gildardo Downing MD, FACS, [facility] Bariatric Surgery | | | [...] SURGEON: Gildardo Downing MD. | | | MACHINE SHOP WORKER: Jamie Gonzales MD R6. ANESTHESIA: Ke Strong [...] | | | Gildardo Downing MD, FACS, [facility] Bariatric Surgery | | | | | + + + CAPILLARY BLOOD GLUCOSE (NO CHG), POC (08/31/2018 11:23 AM PST) + +-------+ + + + | Component | Value | Ref Range | Performed | Pathologist | | | | | At | Signature | + +-------+ + + + | BLOOD | 75 | 60 - 99 mg/dL | [facility] - | | | GLUCOSE, | | [...] | + + + + + | [facility] | [address] | [place], [place] | | | [facility] | [facility] | [address] | | | TESTS | | | [...] | | | | | 0810, Until Wed09/02/18 at 2314, | | | [...] PM PST | | | | | Wed09/02/18 at 1100, Until | | | | [...] mL/hr | mL/hr | | | Starting Wed08/31/18 at 1500, | | AM PST | | | | | Until Wed09/02/18 at 2314 | | | | | [...] | | | | | dose on Wed09/01/18 at 0900, | | AM PST | [...]
--- OUTSIDE RECORDS SUMMARY | ~2019-09-27 | XMS | Encounter Summary ---
Demographics + + + | Address | [address] | | | [place] [address] | + + + | Home Phone | | + + + | Preferred Language | Unknown | + + + | Marital Status | | + + + | Mandaeism Affiliation | CHR | + + + | Race | White | + + + | Ethnic Group | Not or | + + + Author + + + | Author | [facility] | + + + | Organization | [facility] | + + + | Address | Unknown | + + + | Phone | Unavailable | + + + Support + + + + + | Name | Relationship | Address | Phone | + + + + + | Stewart Corbett | ECON | [address] | | | | | [place] | | | | | [address] | | + + + + + Care Team Providers + +------+ + | Care Organic Chemistry Professor Name | Role | Phone | + +------+ + | Aleshia Martinez PA-C | PCP | | + +------+ + Encounter Details +--------+ + + + + | Date | Type | Department | Care Team | Description | +--------+ + + + + | 01/07/ | Telephone | Digestive Health | Yumiko Clarke, | | | 2017 | | Center at [facility] [address] | [facility] [address] | | | | | [address] | [address] [facility] [place] | | | | | Mailcode: Center | [address] | | | | | for Health and | [phone] | | | | | [facility], [address] | | | | | | [place], [place] | | | | | | [address] | | | | | | [phone] | | | +--------+ + + + [...] [address] | | | | | | [place], [place] | | | | | | [address] | | | | | | [phone] | | | | | | | [...]
--- OUTSIDE RECORDS SUMMARY | ~2019-09-27 | XMS | Encounter Summary ---
Demographics + + + | Address | [address] | | | [place] [address] | + + + | Home Phone | | + + + | Preferred Language | Unknown | + + + | Marital Status | | + + + | Shinto Affiliation | CHR | + + + [...] [place] | | | | | [address] | | + + + + + Care Team Providers + +------+ + | Care Refuse And Recycling Worker Name | Role | Phone | + +------+ + | Aleshia Martinez PA-C | PCP | | + +------+ + Reason for Visit + + + | Reason | Comments | + + + | Workman's | | | Compensation Claim | | + + + Encounter Details +--------+ + + + + | Date | Type | Department | Care Team | Description | +--------+ + + + + | 07/07/ | Telephone | Digestive Health | [place] Gildardo Holden, | Emily | | 2018 | | Center at [facility] [address] | MD [address] | Compensation Claim | | | | [address] | [place], [place] | | | | | Mailcode: [place] | [address] | | | | | for Health and | [phone] | | | | | [facility], [place] [address] | | | | | | [facility] [place] | | | | | | [address] | | | | | | [phone] | | | +--------+ + + + [...] Rd | | | | | | [place], [place] | | | | | | [address] | | | | | | [phone] | | | | | | | | +--------+---------+ + + + documented as of this encounter Visit Diagnoses Not on filedocumented in this encounter"
--- OUTSIDE RECORDS SUMMARY | ~2019-09-27 | XMS | Encounter Summary ---
Demographics + + + | Address | [address] | | | [place] [address] | + + + | Home Phone [...] [place] | | | | | [address] | | + + + + + Care Team Providers + +------+ + | Care Polymer Chemist Name | Role | Phone | + [...] | | | [address] | [place], [place] | | | | | Mailcode: [place] | [phone] | | | | | for Health and | [phone] | | | | | [facility], [place] [address] | | | | | | [facility] [place] | | | | | | [address] | | | | | | [phone] | | | +--------+ + + + [...] [address] | | | | | | [place], [place] | | | | | | [address] | | | | | | [phone] | | | | | | | | +--------+---------+ + + + documented as of this encounter Visit Diagnoses Not on filedocumented in this encounter"
--- OUTSIDE RECORDS SUMMARY | ~2019-09-27 | XMS | Encounter Summary ---
Demographics + + + | Address | [address] | | | [place] [address] | + + + | Home Phone [...] [place] | | | | | [address] | | + + + + + Care Team Providers + +------+ + | Care Burglar Alarm Operator Name | Role | Phone | [...] | | 2017 | | Center at [facility] [address] | | Bariatric Surgery | | | | [address] | | | | | | Mailcode: Center | | | | | | for Health and | | | | | | [facility], [address] | | | | | | [place], [place] | | | | | | [address] | | | | | | [phone] | | | +--------+ + + + [...] | Surgery | Shu | | | 2018 | Visit | | MD Bryson [address] | | | | | [address] | | | | | | [place], [place] | | | | | | [address] | | | | | | [phone] | | | | | | | | +--------+---------+ + + + documented as of this encounter Visit Diagnoses Not on filedocumented in this encounter"
--- OUTSIDE RECORDS SUMMARY | ~2019-09-27 | XMS | Encounter Summary ---
Demographics + + + | Address | [address] | | | [place] [address] | + + + | Home Phone | | + + + | Preferred Language | Unknown | + + + | Marital Status | | + + + | Anabaptist Affiliation | CHR | + + + [...] [place] | | | | | [address] | | + + + + + Care Team Providers + +------+ + | Care Cake Puncher Name | Role | Phone | + +------+ + | Aleshia Martinez PA-C | PCP | | + +------+ + Encounter Details +--------+ + + + + | Date | Type | Department | Care Team | Description | +--------+ + + + + | 04/13/ | Abstract | Digestive Health | Clinic, Surgery | | | 2019 | | [place] at [facility] [address] | | | | | | [address] | | | | | | Mailcode: [place] | | | | | | for Health and | | | | | | Healing, [address] | | | | | | [place], [place] | | | | | | [address] | | | | | | [phone] | | | +--------+ + + + [...] Rd | | | | | | [place], [place] | | | | | | [address] | | | | | | [phone] | | | | | | | | +--------+---------+ + + + documented as of this encounter Visit Diagnoses Not on filedocumented in this encounter"
--- OUTSIDE RECORDS SUMMARY | ~2019-09-27 | XMS | Encounter Summary ---
Demographics + + + | Address | [address] | | | [place] [address] | + + + | Home Phone [...] [place] | | | | | [address] | | + + + + + Care Team Providers + +------+ + | Care Parking Officer Name | Role | Phone | [...] | 2018 | on | Center at [facility] [address] | | | | | | [address] | | | | | | Mailcode: Center | | | | | | for Health and | | | | | | Healing, [address] | | | | | | [place], [place] | | | | | | [address] | | | | | | [phone] | | | +--------+ + + + [...] [place] | | | | | | [address] | | | | | | [phone] | | | | | | | | +--------+---------+ + + + documented as of this encounter Visit Diagnoses Not on filedocumented in this encounter"
--- OUTSIDE RECORDS SUMMARY | ~2019-09-27 | XMS | Encounter Summary ---
Demographics + + + | Address | [address] | | | [place] [address] | + + + | Home Phone | | + + + | Preferred Language | Unknown | + + + | Marital Status | | + + + | Buddhism Affiliation | CHR | + + + [...] [place] | | | | | [address] | | + + + + + Care Team Providers + +------+ + | Care Health And Fitness Instructor Name | Role | Phone | + [...] + + | 09/22/ | Hospital | [address] | Shu, | | | 2019 - | Encounter | [address] | MD [address] | | | | | [place], [place] | [address] | | | 09/25/ | | [address] | [place], [place] | | | 2019 | | [phone] | [address] | | | | | | [phone] | | | | | | | [...] + + + | Blood Pressure | 123/67 | 09/25/2019 8:18 AM | | | | | PST | | + + + + + | Pulse | 68 | 09/25/2019 8:18 AM | | | | | PST | | + + + + + | Temperature | 36.7 C (98.1 F) | 09/25/2019 8:18 AM | | | | | PST | | + + + + + | Respiratory Rate | 14 | 09/25/2019 8:18 AM | | | | | PST | | + + + + + | Oxygen Saturation | 96% | 09/25/2019 8:18 AM | | | | | PST | | + + + + + | Inhaled Oxygen | - | - | | | Concentration | | | | + + + + + | Weight | 75.5 kg (166 lb 7.2 | 09/22/2019 10:03 AM | | | | oz) | PST | | + + + + + | Height | 170.2 cm (5' 7") | 09/22/2019 10:03 AM | | | | | PST | | + + + + + | Body Mass Index | 26.07 | 09/22/2019 10:03 AM | | | | | PST [...] documented as of this encounter Discharge Summaries Shayne Worthy AGACNP - 09/25/2019 9:06 AM PSTFormatting of this note might b e different from the original. [facility] - [facility] SURGERY TEAM INPATIENT DISCHARGE SUMMARY Author: Shayne Laguerre DNP AGACNP-BC Attending Physician: Bryson Ireland MD PCP: Aleshia Martinez PA-C Admission Date: 09/22/2019 Discharge Date: 09/25/2019 Diagnosis: Recurrent incarcerated incisional ventral hernia. Procedure: 1.Exploratory laparotomy. 2.Excision of prior hernia mesh [id number] pieces.2.5 hours spent exc ising mesh including debridement of the dense scar, some fascia, muscle, and adipose. 3.Retromuscular repair of recurrent incisional hernia. Hospital course: Sara Caballero is a pleasant 34 y.o. female with a history of 5 prior mesh repairs of a lower midline hernia, as well as a laparoscopic sleeve gastrectomy who presents for def initive repair of lower midline hernia. She underwent the procedures listed on 09/22/2019. S he tolerated the procedure well and recovered uneventfully on the brown post-operatively. She was discharged in stable conditon on 09/25/19, at which time she was tolerating a regular d iet, had good pain control on oral medications, and was ambulating without difficulty. Education was provided to the patient and family/caregiver regarding: wound care, activity restrictions, and follow up which will be scheduled with Bryson Ireland MD. Pathology: none Medications: Medication List CONTINUE taking these medications ALBUTEROL INHL Inhale 2 puffs as needed. cetirizine 10 mg Tab Commonly known as: ZYRTEC Take 10 mg by mouth as needed. Cholecalciferol (Vitamin D3) 5,000 unit Tab Commonly known as: VITAMIN D3 Take 1 tablet by mouth once daily. Indications: Vitamin D Deficiency ENSKYCE 0.15-0.03 mg Tab Generic drug: desogestrel-ethinyl estradiol Take 1 tablet by mouth once daily. Hold for two weeks after surgery. ergocalciferol 50,000 unit Cap Commonly known as: VITAMIN D2, DRISDOL Take 1 capsule by mouth every seven days. Indications: Vitamin D Deficiency (High Dose Ther apy) fluticasone propionate 50 mcg/actuation Spsn Commonly known as: FLONASE Instill 1 spray into each nostril as needed. multivitamin Tab Commonly known as: THERA VITAMIN Take 1 tablet by mouth once daily. nystatin 100,000 unit/gram Powd Commonly known as: MYCOSTATIN Apply to affected area two times daily. Apply to candidal lesions until lesions have healed . PROBIOTIC WITH PREBIOTIC ORAL Take by mouth. sertraline 50 mg Tab Commonly known as: ZOLOFT Take 75 mg by mouth once daily. ASK your doctor about these medications omeprazole 20 mg Cpdr Commonly known as: PRILOSEC Take 1 capsule by mouth once daily. Administer 30 to 60 minutes before meals Ask about: Which instructions should I use? Vitals on discharge: Ht 1.702 m (5' 7"), Wt 75.5 kg (166 lb 7.2 oz), BP 123/67, Pulse 68, T emperature 36.7 C (98.1 F), Temperature source Oral, RR 14, SpO2 96%, BMI 26.07 kg/(m^2) . Facility age limit for growth percentiles is 18 years. Physical Exam General: NAD HEENT: MMM, Lungs: Unlabored breathing on RA CV: Regular, Non-tachy Abdomen: Soft, nondistended, nontender Incision c/d/i well approximated Drain: Serosanguinous Extremities: WWP Outstanding labs/studies: None [facility]ing [facility] Attending Physician: MD Shayne [facility]cdonough [facility] Pager# [phone] 9:06 AM 09/25/2019 [place] colunga in this encounter Discharge Instructions Discharge Instr - AVS First Page Shayne Worthy AGACNP - 09/25/2019 9:06 AM Linda Marti to Call the Doctor - If your incision becomes red, swollen, or has any bloody or pus-like drainage. - If you have a fever of 101.5 F or greater or if you have chills - If you have increased pain, unrelieved by your pain medications - If you have persistent nausea, vomiting, diarrhea, or no bowel movement for more than 2 d ays after discharge from the hospital - If you develop any unusual signs or symptoms, including chest pain, shortness of breath, pulmonary embolism, leg swelling, pain or redness that is abnormal for you, and other sympto ms of concern - If you have any questions or concerns. How to Call the Doctor You may contact your doctor Wednesday through Wednesday during the day time hours by calling the surgery office at [phone]. After hours, weekends and holidays, you may call the hospital alemite operator at [phone] and have the public relations director [place] Team for general surgery paged. Discharge Instr - Activity Shayne Worthy AGACNP - 09/25/2019 9:04 AM PSTShow ers are permitted, no soaking in water (baths, jacuzzi, swimming) for 4 weeks or until all w ounds are FULLY healed. No heavy lifting, nothing greater than 10lbs. For 4-6 weeks (a gallon of milk is approximat mohan 8lbs.) NO DRIVING WHILE ON NARCOTICS. ACTIVITY: Walking will be your primary source of exercise. It is very important that you wa lk at least three times a day. These can be short walks that you can gradually increase over time as your strength improves. The majority of time should be spent out of bed. It is ok t o take naps if you are tired, but alternate napping with activity. CONSTIPATION: It is very important to avoid constipation and straining while trying to have a bowel movem ent. It is common to have constipation after surgery and while taking narcotics, however the re are several medications you can use to both prevent and relieve constipation. You can us e stool softeners (Colace a.k.a. Docusate Sodium) or laxatives (Senokot -stool softener + la xative; Milk of Magnesia; Miralax - laxative drink; Dulcolax - suppository). Please work tow beau having a bowel movement every 1-2 days. It is also important to stay hydrated as this wi ll also help your bowel function. PAIN: It is expected that you will have pain after surgery, and it is important to manage this pa in so that you can increase your activity, sleep, and heal well from surgery. You are being discharged with a prescription for narcotic pain medication - this is to be taken NEEDED typically every 4-6 hours. Tylenol: You may use sidd-qnp-qfoomnw (OTC) acetaminophen (Tylenol) for milder pain. Do not take Tylenol if we have specifically instructed you to avoid it. DO NOT TO TAKE MORE THAN 4 ,000MG OF TYLENOL IN 24HOURS for short-term use; For long-term use or patients older than 65 years old, you should not take more than 3,000mg. *Some medications contain Tylenol already - these are usually medications with Hydrocodone such as Vicodin or [place]. It is important to keep track of your TOTAL amount of acetaminophe n (Tylenol) as too much can be hard on your liver. Pain medication addiction: We expect that as you get farther out from surgery and are recovering well, that you won't need as much narcotic pain medication. These medications can be addictive. There are 2 ways of weaning yourself off pain medications: -By dose: For example (your dose/drug may be different): Instead of taking 10mg of Oxycodon e every 4 hours as needed, decrease your dose to 7.5mg (cut the tablet in half) or 5mg but s wendy on the every 4 hour as needed schedule that has been working. -OR- -By time interval: For example (your dose/drug may be different): Instead of taking 10mg of Oxycodone every 4 hours, start allowing more time between doses. Try to hold off taking ano ther dose for 5 or 6 hours depending on how bad your pain is. Then gradually increase to 7 h ours, 8 hours, etc. If you are having difficulty weaning yourself off the narcotics (also called opioids), PLEA SE discuss this with one of your medical providers. Discharge Instr - Diet Shayne Worthy AGACNP - 09/25/2019 9:04 AM PSTDiet Typ e: Regular diet- There are no restrictions to your diet. You may eat or drink whatever you prefer, though healthy food choices are recommended. Discharge Instr - Diagnoses Shayne Worthy AGACNP - 09/25/2019 8:58 AM PSTRec urrent incarcerated incisional ventral hernia. Discharge Instr - Procedures Shayne Worthy AGACNP - 09/25/2019 8:58 AM PSTPr ocedure Performed: 1. Exploratory laparotomy. 2. Excision of prior hernia mesh x3 separate pieces. 2.5 hours spent excising mesh including debridement of the dense scar, some fascia, muscle, and adipose. 3. Retromuscular repair of recurrent incisional hernia. Discharge Instr - Hospital Course Shayne Worthy AGACNP - 09/25/2019 8:58 AM PSTSara Caballero is a pleasant 34 y.o. female with a history of 5 prior mesh repair s of a lower midline hernia, as well as a laparoscopic sleeve gastrectomy who presents for d efinitive repair of lower midline hernia. She underwent the procedures listed on 09/22/2019. She tolerated the procedure well and recovered uneventfully on the brown post-operatively. S he was discharged in stable conditon on 09/25/19, at which time she was tolerating a regular diet, had good pain control on oral medications, and was ambulating without difficulty. Education was provided to the patient and family/caregiver regarding: wound care, activity restrictions, and follow up which will be scheduled with Bryson Ireland MD. Discharge Instr - Electronic Signature Shayne Worthy AGACNP - 09/25/2019 9:0 6 AM PSTAfter Visit Summary Signature Electronically signed by: GAUTAM Cool, 09/25/2019 at 9:06 AMElectr onically signed by GAUTAM Rodríguez at 09/25/2019 9:06 AM PST Additional Instructions Shayne Worthy AGACNP - 09/25/2019 9:05 AM PSTWound c are: Please remove bandage on Wednesday. You have glue closing your incision sites. Please do not pick the glue off, it will dissolv e and fall off over time. Follow the instructions below for taking a shower. Keep your incision clean and dry. Showers are permitted. Shower daily with antibacterial soap, let the shower water rinse off your incisions and let the incisions air dry or pat the incision dry with a clean towel. Use a clean towel with each shower. No soaking in water (b aths, jacuzzi, swimming) until all wounds are FULLY healed over or as directed by your provi lorrie. Refer to the other discharge orders for information on how to monitor your site for infecti on and when to call the clinic. Rubbing/Irritation: If clothes rub your incision, we recommend covering with loose gauze or a band-aid after your outer dressing has been removed. Lotions/Creams: Do not use other lotions, creams or ointments on incision unless directed t o do so by your physician. DRAIN CARE: GENERAL INFORMATION: What is it? A drain is a thin rubber tube put into your skin to drain fluid from around or under an incision or wound. It has a soft, squeeze bulb at the end of the plastic tubing. T his kind of a drain may be in your incision from 24 hours to several weeks. The drain is naomi en out when the drainage decreases. Why do you need it? The squeeze bulb on the end of the drain tube creates gentle suction. T his helps to get the fluid out of your incision faster. The drain helps your incision heal f chilango. It may also help prevent you from getting an infection. How do I check my drain site? * Wash your hands with warm water and soap. Dry your hands co mpletely.* Unpin the drain tube and bulb from your clothing.* Do not pull on the tubing or y ou may pull your stitches loose or accidentally pull out the drain. * look for any new redne ss, swelling, or pus around the drain. Make sure the sutures that attach the drain to your s kin are not loose. Tell your doctor if you see any of these changes.* Cleanse around the jaquan in with soap and water and rinse thoroughly. * Pat dry. How do I empty my drain? You or a family member or friend will need to empty the drain a fe w times each day. Usually you empty the drain when it is half full. The fluid usually starts out a dark red color and becomes tellers supervisor and eventually a straw color. * Wash your hands wi th warm water and soap. Dry your hands completely.* Hold the bulb in one hand and with the o ther hand, remove the plug from the drainage spout. Tip the bulb upside down and squeeze the fluid into the collection cup. DO NOT touch the tip of the spout with the mouth of the garrett ection cup or anything else. This keeps germs from getting inside the bulb and tubing. * Squ eeze the bulb tightly to remove all the air. Carefully put the plug back in the spout while all the air is squeezed out. This re-creates the suction inside the bulb. DO NOT squeeze the bulb if the plug is in place. * Re-pin the tape tab of the drain tubing and bulb back to yo ur clothing.* Write down the amount and color of the fluid, the date and time. Bring this re cord with you to clinic as your MD will use this to decide when to take the drain out.* Flus h the drainage fluid down the toilet or pour down the sink and rinse sink with water. * Wash and dry your hands. -Sometimes the drain becomes clogged. You may be able to clear this blockage by stripping o r milking the tubing. Pinch the tubing between your thumb and forefinger at the site where i t comes out of the skin and slide fingers down toward the bulb. Call your MD if you have any of the following problems:* Bleeding in the wound area gets wo rse of the drain starts filling up very quickly with bright red blood.* You have a temperatu re over 100.4 F* You have any signs of increased or repeat infection. More pain, swelling, o r redness. Pus or bad smell in your wound or on the bandages. Red streaks around the area of your wound.* The drain stops working or seems plugged.* Fluid drains around the drain site by your skin instead of into to the bulb.* The drain stitches come loose or break off. Generally, we like the fluid in the drain to measure less than 30 ml in a 24 hour period be fore taking it out. We will discuss a plan with you for your drain removal. If you [facility], we will plan to talk with your local provider for drain removal. documented in this encounter Medications at Time of Discharge + + + +---------+ + + | Medication | Sig | Dispensed | Refills | Start | End Date | | | | | | Date | | + + + +---------+ + + | acetaminophen 500 | Take 1-2 tablets by | 60 | 0 | 09/25/20 | | | mg oral tablet | mouth every six | tablet | | 19 | | | | hours as needed. | | | [...] + + + +---------+ + + | ergocalciferol | Take 1 capsule by | 52 | 0 | 09/07/20 | | | 50,000 unit oral | mouth every seven | capsule | | 18 | | | capsuleIndications: | days. Indications: | | | | | | Vitamin D Deficiency | Vitamin D Deficiency | | | | | | (High Dose Therapy) | (High Dose Therapy) | | | | | + + + +---------+ + + | fluticasone 50 | Instill 1 spray into | | 0 | | | | mcg/actuation nasal | each nostril as | | | | | | spray,suspension | needed. | | | | | + + + +---------+ + + | multivitamin oral | Take 1 tablet by | | 0 | | | | tablet | mouth once daily. | | | | | + + + +---------+ + + | nystatin 100,000 | Apply to affected | 15 g | 2 | 11/25/19 | | | unit/gram topical | area two times | | | 19 | | | powder | daily. Apply to | | | | | | | candidal lesions | | | | | | | until lesions have | | | | | | | healed. | | | | | + + + +---------+ + + | omeprazole 20 mg | Take 1 capsule by | 30 | 2 | 01/18/20 | | | oral capsule,delayed | mouth once daily. | capsule | | 19 | | | release(DR/EC) | Administer 30 to 60 | | | | | | | minutes before meals | | | | | + + + +---------+ + + | ondansetron ODT 8 | Dissolve 0.5 tablets | 8 | 0 | 09/25/20 | | | mg oral | on tongue and | tablet | | 19 | | | tablet,disintegratin | swallow every twelve | | | | | | g | hours as needed. | | | | | + + + +---------+ + + | oxyCODONE | Take 1-2 tablets by | 20 | 0 | 09/25/20 | | | (immediate release) | mouth every three | tablet | | 19 | | | 5 mg oral tablet | hours as needed for | | | | | | | moderate pain or | | | | | | | severe pain. | | | | | + + + +---------+ + + | polyethylene | Mix 1 packet and | | 0 | 09/25/20 | | | glycol 17 gram oral | take orally once | | | 19 | | | powder in packet | daily as needed. The | | | | | | | goal is to have a | | | | | | | bowel movement every | | | | | | | other day | | | | | + + + +---------+ + + | sertraline 50 mg | Take 75 mg by mouth | | 0 | | | | oral tablet | once daily. | | | | | + + + +---------+ + + documented as of this encounter Progress Notes Hilda Chua MD - 09/24/2019 6:38 AM [facility] Surgery Admission Date: 09/22/2019 ( LOS: 2 days ) Attending Provider: Bryson Ireland MD Interval History and Events: Feeling pretty good this morning Had some questions about surgery (risk of mesh infection, placement of mesh) Most painful at LLQ transfascial site. BP 106/56 (BP Location: Left upper arm, Patient Position: Lying on back) | Pulse 57 | Tem p 36.8 C (98.2 F) (Oral) | Resp 16 | Ht 1.702 m (5' 7") | Wt 75.5 kg (166 lb 7.2 oz) | SpO2 96% | BMI 26.07 kg/m | BSA 1.89 m Physical Examination: General: NAD HEENT: MMM, Lungs: Unlabored breathing on RA CV: Regular, Non-tachy Abdomen: Soft, nondistended, nontender Incision c/d/i well approximated Drain: Serosanguinous Extremities: WWP Data UOP appropriate No new labs Assessment and Plan: Sara Caballero is a 34 y.o. female admitted on 09/22/2019 for treatment of recurren t incarcerated ventral. Patient underwent excision of multiple prior meshes and retromuscula r repair with 20x10 cm piece of bard soft on 09/22. Patient is POD#2 doing well, plan to tra nsition to oral meds, remove stafford, and saline lock. #Recurrent incarcerated incisional hernia s/p repair. -transition from GAGGERMAN to orals -continue drain. #low UOP -resolving, saline lock -remove stafford Dispo: likely 3 days total inpatient. HILDA CHAU MD [facility] MD - 09/23/2019 8:56 AM PSTDEPARTMENT OF SURGERY Green Surgery Admission Date: 09/22/2019 ( LOS: 1 day ) Attending Provider: Bryson Ireland MD Interval History and Events: Some nausea and emesis overnight, now feeling better Low UOP overnight Feeling ok this morning BP 117/60 (BP Location: Right upper arm, Patient Position: Lying on back) | Pulse 105 | T emp 36.9 C (98.4 F) (Oral) | Resp 18 | Ht 1.702 m (5' 7") | Wt 75.5 kg (166 lb 7.2 oz ) | SpO2 99% | BMI 26.07 kg/m | BSA 1.89 m Physical Examination: General: NAD HEENT: MMM, Lungs: Unlabored breathing on RA CV: Regular, Non-tachy Abdomen: Soft, nondistended, nontender Incision c/d/i well approximated Drain: Serosanguinous Extremities: WWP Data hypomag 1.7 Leukocytosis 15 Assessment and Plan: Sara Caballero is a 34 y.o. female admitted on 09/22/2019 for treatment of recurren t incarcerated ventral. Patient underwent excision of multiple prior meshes and retromuscula r repair with 20x10 cm piece of bard soft on 09/22. Patient is POD#1 feeling ok but with LOW and recent nausea. #Recurrent incarcerated incisional hernia s/p repair. -continue GAGGERMAN and stafford until tomorrow -continue drain. #low UOP -bolus 1L of LR -keep stafford #hypomagnesemia -replace IV Dispo: likely 3 days total inpatient. HILDA CHUA MD General Surgery documented in this encounter Plan of Treatment +--------+---------+ + + + | Date | Type | Specialty | Care Team | Description | +--------+---------+ + + + | 10/05/ | Office | Surgery | Shu, | | | 2018 | Visit | | MD [address] | | | | | | [address] | | | | | | [place], [place] | | | | | | [address] | | | | | | [phone] | | | | | | | | +--------+---------+ + + + + +---------+--------+ + + | Name | Type | Priori | Associated Diagnoses | Order Schedule | | | | ty | | | + +---------+--------+ + + | INTRAPROCEDURE | Imaging | Urgent | | One Time for 1 | | IMAGING | | | | Occurrences starting | | | | | | 09/22/2019 until | | | | | | 09/22/2019, 1 | | | | | | completed | + +---------+--------+ + + documented as of this encounter Procedures + +--------+ + + + | Procedure Name | Priori | Date/Time | Associated Diagnosis | Comments | | | ty | | | | + +--------+ + + + | PROCEDURE NOTE | Routin | 09/25/2019 | | Results for this | | | e | 12:59 PM | | procedure are in the | | | | PST | | results section. | + +--------+ + + + | CBC (HEMOGRAM) ONLY | Urgent | 09/23/2019 | | Results for this | | | | 3:53 AM | | procedure are in the | | | | PST | | results section. | + +--------+ + + + | RENAL FUNCTION SET | Urgent | 09/23/2019 | | Results for this | | (NA,K,CL,CO2,BUN,CRE | | 3:53 AM | | procedure are in the | | AT,GLUC,CA,PHOS,ALB | | PST | | results section. | | ) | | | | | + +--------+ + + + | CBC ONLY | Urgent | 09/23/2019 | | Results for this | | | | 3:53 AM | | procedure are in the | | | | PST | | results section. | + +--------+ + + + | MAGNESIUM, PLASMA | Urgent | 09/23/2019 | | Results for this | | | | 3:53 AM | | procedure are in the | | | | PST | | results section. | + +--------+ + + + | CARDIOLOGY | | 09/23/2019 | | Results for this | | | | 12:00 AM | | procedure are in the | | | | PST | | results section. | + +--------+ + + + | GLUCOSE, PLASMA | Urgent | 09/22/2019 | | Results for this | | | | 5:34 PM | | procedure are in the | | | | PST | | results section. | + +--------+ + + + | CAPILLARY BLOOD | Routin | 09/22/2019 | Ventral hernia | Results for this | | GLUCOSE (NO CHG), | e | 3:57 PM | with obstruction and | procedure are in the | | POC | | PST | without gangrene | results section. | + +--------+ + + + | VENTRAL HERNIA | Electi | 09/22/2019 | PARTIALLY | | | REPAIR | ve | 11:59 AM | INCARCERATED | | | | Surgic | PST | INCISIONAL HERNIA | | | | al | | | | + +--------+ + + + +---+--------+ | | | | | Specia | | | l | | | Needs | | | PT | | | WOULD | | | LIKE | | | VERÓNICA | | | D TO | | | STAY | | | IN THE | | | ROOM | | | WITH | | | HER | +---+--------+ + +--------+ + + + | CAPILLARY BLOOD | Routin | 09/22/2019 | Ventral hernia | Results for this | | GLUCOSE (NO CHG), | e | 10:48 AM | with obstruction and | procedure are in the | | POC | | PST | without gangrene | results section. | + +--------+ + + + | INTRAPROCEDURE | Urgent | 09/22/2019 | | Results for this | | IMAGING | | 10:23 AM | | procedure are in the | | | | PST | | results section. | + +--------+ + + + | HCG URINE, POC | Urgent | 09/22/2019 | Ventral hernia | Results for this | | | | 10:11 AM | with obstruction and | procedure are in the | | | | PST | without gangrene | results section. | + +--------+ + + + | CARDIOLOGY | | 10/25/2000 | | Results for this | | | | 12:00 AM | | procedure are in the | | | | PST | | results section. | + +--------+ + + + documented in this encounter Results PROCEDURE NOTE (09/25/2019 12:59 PM PST)CBC (HEMOGRAM) ONLY (09/23/2019 3:53 AM PST) + + + + + + | Component | Value | Ref Range | Performed | Pathologist | | | | | At | Signature | + + + + + + | WHITE CELL | 14.42 (H) | 3.50 - 10.80 | [facility] | | | COUNT | | K/cu mm | LABORATORY | | | | | | SERVICES, | | | | | | CORE | | + + + + + + | RED CELL | 4.22 | 4.00 - 5.20 | [facility] | | | COUNT | | M/cu mm | LABORATORY | | | | | | SERVICES, | | | | | | CORE | | + + + + + + | HEMOGLOBIN | 13.3 | 12.0 - 16.0 | [facility] | | | | | g/dL | LABORATORY | | | | | | SERVICES, | | | | | | CORE | | + + + + + + | HEMATOCRIT | 40.4 | 36.0 - 46.0 % | [facility] | | | | | | LABORATORY | | | | | | SERVICES, | | | | | | CORE | | + + + + + + | MCV | 95.7 | 80.0 - 100.0 fL | [facility] | | | | | | LABORATORY | | | | | | SERVICES, | | | | | | CORE | | + + + + + + | MCHC | 32.9 | 32.0 - 36.0 | [facility] | | | | | g/dL | LABORATORY | | | | | | SERVICES, | | | | | | CORE | | + + + + + + | RDW SD | 43.7 | 35.1 - 46.3 fL | [facility] | | | | | | LABORATORY | | | | | | SERVICES, | | | | | | CORE | | + + + + + + | PLATELET | 274 | 150 - 400 K/cu | [facility] | | | COUNT | | mm | LABORATORY | | | | | | SERVICES, | | | | | | CORE | | + + + + + + | MPV | 10.1 | 9.7 - 12.3 fL | [facility] | | | | | | LABORATORY | | | | | | SERVICES, | | | | | | CORE | | + + + + + + | NRBC% | 0.0 | 0.0 - 0.3 % | [facility] | | | | | | LABORATORY | | | | | | SERVICES, | | | | | | CORE | | + + + + + + | NRBC# | 0.00 [...] + + + + + | [facility] | [address] | [place] [address] | | | SERVICES, CORE | [address] | | | + + + + + MAGNESIUM, PLASMA (09/23/2019 3:53 AM PST) + +-------+ + + + | Component | Value | Ref Range | Performed | Pathologist | | | | | At | Signature | + +-------+ + + + | MAGNESIUM,P | 1.7 | 1.6 - 2.6 mg/dL | [facility] | | | LASMA | | | LABORATORY | | | [...] [facility] | [address] | [place] [address] | | | SERVICES, CORE | [address] | | | + + + + + RENAL FUNCTION SET (NA,K,CL,CO2,BUN,CREAT,GLUC,CA,PHOS,ALB ) (09/23/2019 3:53 AM PST) + + + + + + | Component | Value | Ref Range | Performed | Pathologist | | | | | At | Signature | + + + + + + | GLUCOSE, | 137 (H) | 70 - 99 mg/dL | [facility] | | | PLASMA | | | LABORATORY | | | (LAB) | | | SERVICES, | | | | | | CORE | | + + + + + + | BUN, PLASMA | 13 | 6 - 20 mg/dL | [facility] | | | (LAB) | | | LABORATORY | | | | | | SERVICES, | | | | | | CORE | | + + + + + + | CREATININE | 0.46 (L) | 0.60 - 1.10 | [facility] | | | PLASMA | | mg/dL | LABORATORY | | | (LAB) | | | SERVICES, | | | | | | CORE | | + + + + + + | EGFR | >60 | >60 mL/min | [facility] | | | - | | | LABORATORY | | | GAMBIAN | | | SERVICES, | | | [...] + + + + | POTASSIUM, | 4.0 | 3.4 - 5.0 | [facility] | | | PLASMA | | mmol/L | LABORATORY | | | (LAB) | | | SERVICES, | | | | | | CORE | | + + + + + + | CHLORIDE, | 107 | 97 - 108 mmol/L | [facility] | | | PLASMA | | | LABORATORY | | | (LAB) | | | SERVICES, | | | | | | CORE | | + + + + + + | TOTAL CO2, | 29 | 21 - 32 mmol/L | [facility] | | | PLASMA | | | LABORATORY | | | (LAB) | | | SERVICES, | | | | | | CORE | | + + + + + + | CALCIUM, | 8.5 (L) | 8.6 - 10.2 | [facility] | | | PLASMA | | mg/dL | LABORATORY | | | (LAB) | | | SERVICES, | | | | | | CORE | | + + + + + + | CALCIUM(ALB | 9.1 | 8.6 - 10.2 | [facility] | | | CORRECTED) | | mg/dL | LABORATORY | | | | | | SERVICES, | | | | | | CORE | | + + + + + + | ALBUMIN, | 3.3 (L) | 3.5 - 4.7 g/dL | [facility] | | | PLASMA | | | LABORATORY | | | (LAB) | | | SERVICES, | | | | | | CORE | | + + + + + + | PHOSPHORUS, | 3.8 | 2.4 - 4.7 mg/dL | [facility] | | | PLASMA [...] + + + | ANION GAP | 3 (L) | 4 - 11 mmol/L | [facility] | | | | | | LABORATORY | | | | | | SERVICES, | | | | | | CORE | | + + + + + + | ANION | 4 | 4 - 11 mmol/L | [facility] [...] Performed At | + + + | GFR is estimated using the MDRD equation recommended by the National | [facility] | | Kidney Disease Education Program. Estimated GFR Interpretive | LABORATORY | | Information: <60 mL/min/1.73 sq m Chronic Kidney | SERVICES, CORE | | Disease <15 mL/min/1.73 sq m Kidney Failure | | | Estimated GFR greater than 60 mL/min/1.73 sq m is of limited clinical | | | value. The MDRD equation is not valid in the following situations: | | | - Patients under 18 years of age - Severe malnutrition or obesity | | | - Vegetarian diet - Rapidly changing kidney function - Amputees, | | | paraplegics, or other muscle-wasting diseases | | + + + + + + + + | Performing | Address | City/State/Zipcode | Phone Number | | Organization | | | | + + + + + | [facility] | [address] | [place] [address] | | | NILO, [place] | [address] | | | + + + + + CARDIOLOGY (09/23/2019 12:00 AM PST) + + + | Narrative | Performed At | + + + | | | + + + GLUCOSE, PLASMA (09/22/2019 5:34 PM PST) + +---------+ + + + | Component | Value | Ref Range | Performed | Pathologist | | | | | At | Signature | + +---------+ + + + | GLUCOSE, | 123 (H) | 70 - 99 mg/dL | [facility] [...] | + + + + + | [facility] | [address] | [place] [address] | | | SERVICES, CORE | [address] | | | + + + + + CAPILLARY BLOOD GLUCOSE (NO CHG), POC (09/22/2019 3:57 PM PST) + +-------+ + + + | Component | Value | Ref Range | Performed | Pathologist | | | | | At | Signature | + +-------+ + + + | BLOOD | 98 | 70 - 99 mg/dL | [facility] | | | GLUCOSE, | | | [facility] | | | POC | | | [facility] | | | | | | OF CARE | | | | | | TESTS | | + +-------+ + + + + + | Specimen | + + | Blood | + + + + + + + | Performing | Address | City/State/Zipcode | Phone Number | | Organization | | | | + + + + + | [facility] | [address] | [place], [place] | | | [facility] | [facility] | [phone] | | | TESTS | | | | + + + + + CAPILLARY BLOOD GLUCOSE (NO CHG), POC (09/22/2019 10:48 AM PST) + +-------+ + + + | Component | Value | Ref Range | Performed | Pathologist | | | | | At | Signature | + +-------+ + + + | BLOOD | 71 | 70 - 99 mg/dL | [facility] - | | | GLUCOSE, | | | [facility] | | | POC | | | [facility] | | | | | | OF CARE | | | | | | TESTS | | + +-------+ + + + + + | Specimen | + + | Blood | + + + + + + + | Performing | Address | City/State/Zipcode | Phone Number | | Organization | | | | + + + + + | [facility] | [address] [facility] [address] | [place], [place] | | | [facility] | [address] | [phone] | | | TESTS | | | | + + + + + INTRAPROCEDURE IMAGING (09/22/2019 10:23 AM PST) + + | Specimen | + + | | + + + + + | Narrative | Performed At | + + + | See admission or procedure notes for details of any intraprocedure | [facility] | | images obtained. | RADIOLOGY | + + + + +---------+ + + | Performing | Address | City/State/Zipcode | Phone Number | | Organization | | | | + +---------+ + + | [facility] | | | | + +---------+ + + HCG URINE, POC (09/22/2019 10:11 AM PST) + + + + + + | Component | Value | Ref Range | Performed | Pathologist | | | | | At | Signature | + + + + + + | HCG URINE, | Negative | Negative | [facility] - | | | POC | | | [facility] | | | | | | [facility] | | | | | | OF CARE | | | | | | TESTS | | + + + + + + + + | Specimen | + + | Urine - Urine | | (substance) | + + + + + + + | Performing | Address | City/State/Zipcode | Phone Number | | Organization | | | | + + + + + | [facility] | 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 - Primary Ventral hernia, | | unspecified, with obstruction | + + documented in this encounter Administered Medications + +--------+ + +------+------+ | Medication Order | MAR | Action | Dose | Rate | Site | | | Action | Date | | | | + +--------+ + +------+------+ | acetaminophen (TYLENOL) tablet | Given | 09/25/20 | 1,000 mg | | | | 1,000 mg 1,000 mg, oral, EVERY 6 | | 19 11:03 | | | | | HOURS, First dose on Wed | | AM PST | | | | | 09/22/19 at 1745, Until | | | | | | | Discontinued | | | | | | + +--------+ + +------+------+ +-------+ + +---+---+ | Given | 09/25/20 | 1,000 mg | | | | | 19 4:49 | | | | | | AM PST | | | | +-------+ + +---+---+ | Given | 09/24/20 | 1,000 mg | | | | | 19 9:38 | | | | | | PM PST | | | | +-------+ + +---+---+ + +---+ | | | + +---+ | calcium carbonate chewable | | | (TUMS) tablet 200 mg elemental | | | 200 mg elemental (500 mg total | | | salt), oral, EVERY 2 HOURS | | | NEEDED, Starting 09/23/19 at | | | 1009, Until 09/25/19 at 1904, | | | dyspepsia | | + +---+ | | | + +---+ + +-------+ +--------+---+---+ | cholecalciferol (Vitamin D3) | Given | 09/25/20 | 2,000 | | | | (VITAMIN D-3) capsule 2,000 Units | | 19 8:18 | Units | | | | 2,000 Units, oral, DAILY, First | | AM PST | | | | | dose on 09/23/19 at 0900, | | | | | | | Until Discontinued | | | | | | + +-------+ +--------+---+---+ +-------+ +--------+---+---+ | Given | 09/24/20 | 2,000 | | | | | 19 1:31 | Units | | | | | PM PST | | | | +-------+ +--------+---+---+ +---+---+ | | | +---+---+ + +-------+ +-------+---+---+ | diphenhydrAMINE (BENADRYL) | Given | 09/24/20 | 25 mg | | | | capsule 25 mg 25 mg, oral, EVERY | | 19 11:58 | | | | | 6 HOURS NEEDED, Starting Sun | | AM PST | | | | | 09/24/19 at 1149, Until Mon | | | | | | | 09/25/19 at 1904, itching | | | | | | + +-------+ +-------+---+---+ +---+---+ | | | +---+---+ + +-------+ +-------+---+---------+ | enoxaparin (LOVENOX) injection | Given | 09/24/20 | 40 mg | | Abdomen | | 40 mg 40 mg, subcutaneous, | | 19 9:38 | | | | | DAILY, First dose on 09/23/19 | | PM PST | | | | | at 2100, Until Discontinued | | | | | | + +-------+ +-------+---+---------+ +-------+ +-------+---+ + | Given | 09/23/20 | 40 mg | | Left Arm | | | 19 8:23 | | | | | | PM PST | | | | +-------+ +-------+---+ + +---+---+ | | | +---+---+ + +-------+ +-------+---+---+ | famotidine (PEPCID) tablet 20 | Given | 09/23/20 | 20 mg | | | | mg 20 mg, oral, TWICE DAILY | | 19 12:06 | | | | | NEEDED, Starting 09/23/19 at | | PM PST | | | | | 1023, Until 09/25/19 at 1904, | | | | | | | heartburn 1st line | | | | | | + +-------+ +-------+---+---+ +---+---+ | | | +---+---+ + +-------+ +--------+---+---+ | fentaNYL (SUBLIMAZE) injection | Given | 09/22/20 | 25 mcg | | | | 25-50 mcg 25-50 mcg, | | 19 4:03 | | | | | intravenous, POSTPROCEDURE PRN, 8 | | PM PST | | | | | doses, Starting 09/22/19 at | | | | | | | 1553, Until Wed09/22/19 at 1715, | | | | | | | severe pain while in Phase I | | | | | | | Recovery | | | | | | + +-------+ +--------+---+---+ +---+---+ | | | +---+---+ + +-------+ +--------+---+---+ | HYDROmorphone (DILAUDID) | Given | 09/24/20 | 0.5 mg | | | | injection 0.5-1 mg 0.5-1 mg, | | 19 3:23 | | | | | intravenous, EVERY 2 HOURS | | PM PST | | | | | NEEDED, Starting 09/24/19 at | | | | | | | 0808, Until Wed09/25/19 at 1904, | | | | | | | breakthrough pain | | | | | | + +-------+ +--------+---+---+ +---+---+ | | | +---+---+ + + + +---+---+---+ | HYDROmorphone 0.5 mg/mL GAG[facility]MAN | Rate/Dos | 09/24/20 | | | | | (ADULT STANDARD DOSE) in 0.9 % | e Verify | 19 7:30 | | | | | NaCl GAGGERMAN Dose: 0.5 mg, Lockout | | AM PST | | | | | Interval: 15 Minutes, Continuous | | | | | | | Rate: 0 mg/hr, intravenous, | | | | | | | CONTINUOUS, Starting Wed09/22/19 | | | | | | | at 1630, Until 09/24/19 at | | | | | | | 0723 | | | | | | + + + +---+---+---+ + + +---+---+---+ | Rate/Dose Verify | 09/24/20 | | | | | | 19 5:03 | | | | | | AM PST | | | | + + +---+---+---+ | Rate/Dose Verify | 09/23/20 | | | | | | 19 8:23 | | | | | | PM PST | | | | + + +---+---+---+ +---+---+ | | | +---+---+ + + + +--------+---+---+ | HYDROmorphone 0.5 mg/mL rescue | Bolus | 09/22/20 | 0.2 mg | | | | bolus from GAG[facility] (ADULT STANDARD | from | 19 8:00 | | | | | DOSE) 0.2 mg intravenous, EVERY | Same Bag | PM PST | | | | | 10 MINUTES NEEDED, Starting | | | | | | | 09/22/19 at 1611, Until Sun | | | | | | | 09/24/19 at 0723, [facility] clinician | | | | | | | rescue bolus. If exceeding 2 | | | | | | | doses in a rolling 60 minute time | | | | | | | frame, contact provider for [facility] | | | | | | | assessment | | | | | | + + + +--------+---+---+ + +---+ | | | + +---+ | HYDROmorphone in NS 25 mg/50 mL | | | (0.5 mg/mL) sPCA 1 dose, | | | Starting Wed09/22/19 at 1618, | | | Until Wed09/22/19 at 1618 | | + +---+ | | | + +---+ + +-------+ +-------+---+---+ | hydrOXYzine (ATARAX) tablet 25 | Given | 09/22/20 | 25 mg | | | | mg 25 mg, oral, ONCE, 1 dose, | | 19 11:19 | | | | | Wed09/22/19 at 2245 | | PM PST | | | | + +-------+ +-------+---+---+ +---+---+ | | | +---+---+ + +-------+ +--------+---+---------+ | influenza vaccine | Given | 09/25/20 | 0.5 mL | | Left | | (FLUZONE,FLUARIX,FLUAVAL) (PF) IM | | 19 9:36 | | | Deltoid | | injection (age 6 months or | | AM PST | | | | | greater) 0.5 mL 0.5 mL, | | | | | | | intramuscular, DAY OF DISCHARGE, | | | | | | | 1 dose, Starting 09/22/19 at | | | | | | | 2318, Until 09/25/19 at 0936, | | | | | | | Flu vaccination per delegation | | | | | | | protocol | | | | | | + +-------+ +--------+---+---------+ +---+---+ | | | +---+---+ + + + + + +---+ | lactated ringers IV 75 mL/hr, | Rate/Dos | 09/24/20 | 75 mL/hr | 75 mL/hr | | | intravenous, CONTINUOUS, Starting | e Verify | 19 7:30 | | | | | 09/22/19 at 1630, Until Sun | | AM PST | | | | | 09/24/19 at 0723 | | | | | | + + + + + +---+ + + + + +---+ | Rate/Dose Verify | 09/24/20 | 75 mL/hr | 75 mL/hr | | | | 19 5:03 | | | | | | AM PST | | | | + + + + +---+ | Rate/Dose Verify | 09/23/20 | 75 mL/hr | 75 mL/hr | | | | 19 8:16 | | | | | | PM PST | | | | + + + + +---+ +---+---+ | | | +---+---+ + +---------+ + +---+---+ | lactated ringers IV 1,000 mL, | New Bag | 09/23/20 | 1,000 mL | | | | intravenous, ONCE, 1 dose, Sat | | 19 9:47 | | | | | 09/23/19 at 0945 | | AM PST | | | | + +---------+ + +---+---+ +---+---+ | | | +---+---+ + +---------+ +--------+-------+---+ | lactated ringers IV 500 mL, | New Bag | 09/23/20 | 500 mL | 999 | | | intravenous, ONCE, 1 dose, Sat | | 19 8:16 | | mL/hr | | | 09/23/19 at 1845 | | PM PST | | | | + +---------+ +--------+-------+---+ +---+---+ | | | +---+---+ + + + +---------+---+---------+ | lidocaine (LIDODERM) 5 % patch | Applied | 09/24/20 | 1 patch | | Abdomen | | 1 patch 1 patch, transdermal, | Patch | 19 9:38 | | | | | EVERY 24 HOURS, First dose on Fri | | PM PST | | | | | 09/22/19 at 2245, Until | | | | | | | Discontinued | | | | | | + + + +---------+---+---------+ + + +---------+---+---------+ | Applied Patch | 09/23/20 | 1 patch | | Abdomen | | | 19 10:01 | | | | | | PM PST | | | | + + +---------+---+---------+ | Applied Patch | 09/22/20 | 1 patch | | Abdomen | | | 19 11:53 | | | | | | PM PST | | | | + + +---------+---+---------+ +---+---+ | | | +---+---+ + +-------+ +-------+---+---+ | magnesium hydroxide (MILK OF | Given | 09/25/20 | 30 mL | | | | MAGNESIA) suspension 30 mL 30 | | 19 7:01 | | | | | mL, oral, TWICE DAILY, First dose | | AM PST | | | | | on Wed09/25/19 at 0900, Until | | | | | | | Discontinued | | | | | | + +-------+ +-------+---+---+ +---+---+ | | | +---+---+ + +---------+ +-----+---+---+ | magnesium sulfate in water IV | New Bag | 09/23/20 | 2 g | | | | (RTU) 2 g 2 g, intravenous, | | 19 12:07 | | | | | ONCE, 1 dose, 09/23/19 at | | PM PST | | | | | 0945 | | | | | | + +---------+ +-----+---+---+ +---+---+ | | | +---+---+ + +-------+ +-------+---+---+ | omeprazole (PRILOSEC) capsule | Given | 09/23/20 | 20 mg | | | | 20 mg 20 mg, oral, DAILY, First | | 19 8:24 | | | | | dose on Wed09/22/19 at 1745, | | AM PST | | | | | Until Discontinued | | | | | | + +-------+ +-------+---+---+ +-------+ +-------+---+---+ | Given | 09/22/20 | 20 mg | | | | | 19 6:06 | | | | | | PM PST | | | | +-------+ +-------+---+---+ +---+---+ | | | +---+---+ + +-------+ +-------+---+---+ | omeprazole (PRILOSEC) capsule | Given | 09/23/20 | 20 mg | | | | 20 mg 20 mg, oral, ONCE, 1 dose, | | 19 12:07 | | | | | 09/23/19 at 1045 | | PM PST | | | | + +-------+ +-------+---+---+ +---+---+ | | | +---+---+ + +-------+ +-------+---+---+ | omeprazole (PRILOSEC) capsule | Given | 09/25/20 | 40 mg | | | | 40 mg 40 mg, oral, TWICE DAILY, | | 19 8:19 | | | | | First dose (after last | | AM PST | | | | | modification) on 09/23/19 at | | | | | | | 2100, Until Discontinued | | | | | | + +-------+ +-------+---+---+ +-------+ +-------+---+---+ | Given | 09/24/20 | 40 mg | | | | | 19 9:38 | | | | | | PM PST | | | | +-------+ +-------+---+---+ | Given | 09/24/20 | 40 mg | | | | | 19 10:45 | | | | | | AM PST | | | | +-------+ +-------+---+---+ +---+---+ | | | +---+---+ + +-------+ +------+---+---+ | ondansetron (ZOFRAN) injection | Given | 09/24/20 | 4 mg | | | | 4 mg 4 mg, intravenous, EVERY | | 19 9:45 | | | | | HOURS NEEDED, Starting Fri | | AM PST | | | | | 09/22/19 at 2332, Until Mon | | | | | | | 09/25/19 at 1904, n/v, if unable | | | | | | | to take oral form of medication, | | | | | | | first line IV | | | | | | + +-------+ +------+---+---+ +-------+ +------+---+---+ | Given | 09/23/20 | 4 mg | | | | | 19 8:48 | | | | | | PM PST | | | | +-------+ +------+---+---+ +---+---+ | | | +---+---+ + +-------+ +------+---+---+ | ondansetron ODT (ZOFRAN ODT) | Given | 09/25/20 | 8 mg | | | | tablet 8 mg 8 mg, oral, EVERY 12 | | 19 8:18 | | | | | HOURS NEEDED, Starting Fri | | AM PST | | | | | 09/22/19 at 2332, Until Mon | | | | | | | 09/25/19 at 1904, nausea/vomiting, | | | | | | | first line | | | | | | + +-------+ +------+---+---+ +-------+ +------+---+---+ | Given | 09/23/20 | 8 mg | | | | | 19 12:04 | | | | | | AM PST | | | | +-------+ +------+---+---+ +---+---+ | | | +---+---+ + +-------+ +-------+---+---+ | oxyCODONE (immediate release) | Given | 09/25/20 | 10 mg | | | | (ROXICODONE) tablet 5-10 mg 5-10 | | 19 12:45 | | | | | mg, oral, EVERY 3 HOURS | | PM PST | | | | | NEEDED, Starting 09/24/19 at | | | | | | | 0808, Until 09/25/19 at 1904, | | | | | | | moderate pain, severe pain | | | | | | + +-------+ +-------+---+---+ +-------+ +-------+---+---+ | Given | 09/25/20 | 10 mg | | | | | 19 8:18 | | | | | | AM PST | | | | +-------+ +-------+---+---+ | Given | 09/25/20 | 10 mg | | | | | 19 4:49 | | | | | | AM PST | | | | +-------+ +-------+---+---+ +---+---+ | | | +---+---+ + +-------+ +------+---+---+ | polyethylene glycol (MIRALAX) | Given | 09/24/20 | 17 g | | | | packet 17 g 17 g, oral, DAILY, | | 19 1:31 | | | | | First dose on 09/23/19 at | | PM PST | | | | | 0900, Until Discontinued | | | | | | + +-------+ +------+---+---+ +-------+ +------+---+---+ | Given | 09/23/20 | 17 g | | | | | 19 3:31 | | | | | | PM PST | | | | +-------+ +------+---+---+ +---+---+ | | | +---+---+ + + + +-------+---+---+ | probiotic yogurt (RAMU'S | Given - | 09/25/20 | 0.99 | | | | YOGURT) 0.99 each 0.99 each | Food | 19 8:21 | each | | | | (rounded from 1 each), oral, | | AM PST | | | | | DAILY, First dose on 09/23/19 | | | | | | | at 0900, Until Discontinued | | | | | | + + + +-------+---+---+ + + +-------+---+---+ | Given - Food | 09/23/20 | 0.99 | | | | | 19 12:09 | each | | | | | PM PST | | | | + + +-------+---+---+ +---+---+ | | | +---+---+ + +-------+ +------+---+---+ | prochlorperazine (COMPAZINE) | Given | 09/24/20 | 5 mg | | | | injection 5-10 mg 5-10 mg, | | 19 5:01 | | | | | intravenous, EVERY 6 HOURS | | AM PST | | | | | NEEDED, Starting Wed09/22/19 at | | | | | | | 2332, Until Wed09/25/19 at 1904, | | | | | | | nausea/vomiting not responding to | | | | | | | ondansetron and unable to take | | | | | | | oral prochlorperazine | | | | | | + +-------+ +------+---+---+ +-------+ +------+---+---+ | Given | 09/23/20 | 5 mg | | | | | 19 10:09 | | | | | | PM PST | | | | +-------+ +------+---+---+ | Given | 09/23/20 | 5 mg | | | | | 19 9:50 | | | | | | AM PST | | | | +-------+ +------+---+---+ + +---+ | | | + +---+ | prochlorperazine (COMPAZINE) | | | tablet 5-10 mg 5-10 mg, oral, | | | EVERY 6 HOURS NEEDED, Starting | | | Wed09/22/19 at 2332, Until Mon | | | 09/25/19 at 1904, nausea/vomiting, | | | second line | | + +---+ | | | + +---+ + +-------+ +---------+---+---+ | promethazine (PHENERGAN) | Given | 09/22/20 | 6.25 mg | | | | injection 6.25-12.5 mg 6.25-12.5 | | 19 4:01 | | | | | mg, intravenous, POSTPROCEDURE | | PM PST | | | | | PRN, 1 dose, Starting Fri | | | | | | | 09/22/19 at 1553, Until Fri | | | | | | | 09/22/19 at 1601, | | | | | | | nausea/vomiting, 2nd line | | | | | | + +-------+ +---------+---+---+ +---+---+ | | | +---+---+ + +-------+ +---------+---+---+ | senna-docusate (SENOKOT S) | Given | 09/25/20 | 2 | | | | 8.6-50 mg 2 tablet 2 tablet, | | 19 8:19 | tablets | | | | oral, TWICE DAILY, First dose on | | AM PST | | | | | 09/22/19 at 2100, Until | | | | | | | Discontinued | | | | | | + +-------+ +---------+---+---+ +-------+ +---------+---+---+ | Given | 09/24/20 | 2 | | | | | 19 9:38 | tablets | | | | | PM PST | | | | +-------+ +---------+---+---+ | Given | 09/24/20 | 2 | | | | | 19 1:31 | tablets | | | | | PM PST | | | | +-------+ +---------+---+---+ +---+---+ | | | +---+---+ documented in this encounter
--- OUTSIDE RECORDS SUMMARY | ~2019-09-27 | XMS | Encounter Summary ---
Demographics + + + | Address | [address] | | | [place] [address] | + + + | Home Phone | | + + + | Preferred Language | Unknown | + + + | Marital Status | | + + + | Nondenominational Affiliation | CHR | + + + | Race | White | + + + | Ethnic Group | Not or | + + + Author + + + | Author | [facility] | + + + | Organization | [facility] | + + + | Address | Unknown | + + + | Phone | Unavailable | + + + Support + + + + + | Name | Relationship | Address | Phone | + + + + + | Stewart Corbett | ECON | [address] | | | | | [place] | | | | | [address] | | + + + + + Care Team Providers + +------+ + | Care Vibrating Screen Operator Name | Role | Phone | [...] | | [address] | [address] [place], | (Primary Dx); | | | | Mailcode: Center | [place] [address] | Vitamin D | | | | for Health and | [phone] | deficiency; | | | | [facility], [address] | | Gastroesophageal | | | | [place], [place] | | reflux disease, | | | | [address] | | esophagitis presence | | | | [phone] | | not specified; | | | [...] before eating anything. If your systems continue, [place], call us, and we can consider adding [...] of fallopian tube Laparoscopic sleeve gastrectomy 08/31/2018 OKDANIA Downing Social History Social History Marital status: [...] to plan and will call and/or send [employer] message if any issues. Start time 1050, end time 1120. I spent a total of 30 minutes face to face with this patie nt. Over 50% of visit was in counseling. Shanon Etienne, MSN, AG-ACNP, TANK DRIVER Bariatric Surgery Nurse Practitioner [facility] | [address] | [place], [place] | [address] | documented in this enco unter Plan [...] [address] | | | | | | [place], [place] | | | | | | [address] | | | | | | [phone] | | | | | | | [...]
--- OUTSIDE RECORDS SUMMARY | ~2019-09-27 | XMS | Encounter Summary ---
Demographics + + + | Address | [address] | | | [place] [address] | + + + | Home Phone | | + + + | Preferred Language | Unknown | + + + | Marital Status | | + + + | Buddhism Affiliation | CHR | + + + | Race | White | + + + | Ethnic Group | Not or | + + + Author + + + | Author | [facility] | + + + | Organization | [facility] | + + + | Address | Unknown | + + + | Phone | Unavailable | + + + Support + + + + + | Name | Relationship | Address | Phone | + + + + + | Stewart Corbett | ECON | [address] | | | | | [place] | | | | | [address] | | + + + + + Care Team Providers + +------+ + | Care Attic Fans Mechanic Name | Role | Phone | [...] 2017 | | Center at [facility] [address] | [address] | | | | | [place] | [facility] [place] | | | | | Mailcode: Center | [address] | | | | | for Health and | [phone] | | | | | [facility], [address] | | | | | | [place], [place] | | | | | | [address] | | | | | | [phone] | | | +--------+ + + + [...] Rd | | | | | | [place] | | | | | | [address] | | | | | | [phone] | | | | | | | | +--------+---------+ + + + documented as of this encounter Visit Diagnoses Not on filedocumented in this encounter"
--- OUTSIDE RECORDS SUMMARY | ~2019-09-27 | XMS | Encounter Summary ---
Demographics + + + | Address | [address] | | | [place] [address] | + + + | Home Phone [...] [place] | | | | | [address] | | + + + + + Care Team Providers + +------+ + | Care Environmental Service Aide Name | Role | Phone | + [...] | | [address] | [address], | (Primary Dx); | | | | Mailcode: Center | [place] [address] | Vitamin D | | | | for Health and | [phone] | deficiency; | | | | Healing, [address] | | Gastroesophageal | | | | [place], [place] | | reflux disease, | | | | [address] | | esophagitis presence | | | | [phone] | | not specified; | | | [...] before eating anything. If your systems continue, [employer], call us, and we can consider adding [...] of fallopian tube Laparoscopic sleeve gastrectomy 08/31/2018 NHDANIA Downing Social History Social History Marital status: [...] to plan and will call and/or send [employer] App message if any issues. Start time 1050, end time 1120. I spent a total of 30 minutes face to face with this patie nt. Over 50% of visit was in counseling. Shanon Etienne, MSN, AG-ACNP, HOSE COUPLING JOINER Bariatric Surgery Nurse Practitioner [facility] | [address] | [place], [place] | [address] | documented in this enco unter Plan [...] Rd | | | | | | [place], [place] | | | | | | [address] | | | | | | [phone] | | | | | | | [...]
--- OUTSIDE RECORDS SUMMARY | ~2019-09-27 | XMS | Encounter Summary ---
Demographics + + + | Address | [address] | | | [place] [address] | + + + | Home Phone | | + + + | Preferred Language | Unknown | + + + | Marital Status | | + + + | Worship Affiliation | CHR | + + + | Race | White | + + + | Ethnic Group | Not or | + + + Author + + + | Author | [facility] | + + + | Organization | [facility] | + + + | Address | Unknown | + + + | Phone | Unavailable | + + + Support + + + + + | Name | Relationship | Address | Phone | + + + + + | Stewart Corbett | ECON | [address] | | | | | [place] | | | | | [address] | | + + + + + Care Team Providers + +------+ + | Care Wrapper Layer Name | Role | Phone | + +------+ + | No Pcp Per Patient | PCP | Unavailable | + +------+ + Reason for Referral PROC - Inpatient Surgery (Routine) + +--------+ + + + + | Status | Reason | Specialty | Diagnoses / | Referred By | Referred To | | | | | Procedures | Contact | Contact | + +--------+ + + + + | Authorized | | Surgery | Diagnoses | | Shu | | | | | Ventral | Shu, | MD Yann | | | | | hernia with | MD Yann | [address] | | | | | obstruction | [address] | [address] | | | | | and without | [address] | [address] [place], | | | | | gangrene | Rd | [place] | | | | | Procedures | [place], [place] | [address] | | | | | REQUEST TO | [address] | Phone: | | | | | SURGERY | Phone: | [phone] | | | | | REPTILE FARMER | [phone] | Fax: | | | | | [employer] | Fax: | [phone] | | | | | [facility] | [phone] | | | | | | [place] | | | + +--------+ + + + + Reason for Visit + + + | Reason | Comments | + + + | New patient | | | consultation | | + + + Encounter Details +--------+---------+ + + + | Date | Type | Department | Care Team | Description | +--------+---------+ + + + | 07/06/ | Office | Digestive Health | Shu | Ventral hernia with | | 2019 | Visit | [place] [address] | MD Yann [address] | obstruction and | | | | [address] | [address] | without gangrene | | | | Mailcode: [place] | [place], [place] | (Primary Dx) | | | | for Health and | [address] | | | | | [facility] | [phone] | | | | | [facility] [place] | | | | | | [address] | | | | | | [phone] | | | +--------+---------+ + + + [...] + + + | Blood Pressure | 130/75 | 07/06/2019 9:46 AM | | | | | PDT | | + + + + + | Pulse | 62 | 07/06/2019 9:46 AM | | | | | PDT | | + + + + + | Temperature | - | - | | + + + + + | Respiratory Rate | 20 | 07/06/2019 9:46 AM | | | | | PDT | | + + + + + | Oxygen Saturation | 98% | 07/06/2019 9:46 AM | | | | | PDT | | + + + + + | Inhaled Oxygen | - | - | | | Concentration | | | | + + + + + | Weight | 79 kg (174 lb 3.2 | 07/06/2019 9:46 AM | | | | oz) | PDT | | + + + + + | Height | 167.6 cm (5' 6") | 07/06/2019 9:46 AM | | | | | PDT | | + + + + + | Body Mass Index | 28.12 | 07/06/2019 9:46 AM | | | | | [...] of this encounter Patient Instructions Patient Instructions Marcell Akins RN - 07/06/2019 9:50 AM PDTPATIENT SURGERY INFORMATION [facility] General Surgery Office Toll-free: ext [phone] Surgery Date: Sunday, September 22, [address]: Main [facility] Procedure: recurrent ventral hernia repair, excision of mesh Surgeon Name: Dr. Yann Ireland DIRECTIONS FOR SURGERY TO PREPARE FOR SURGERY - If you are able, walk every day for at least 30 minutes. - Follow up: phone pre-operative medicine clinic call WHEN TO ARRIVE Check-in times for Hospital Admissions are not available until the day prior to surgery. So meone will contact you with your check in time. If you do not hear from anyone by 4:[address] ease call the General Surgery Office at [phone] for [id number]. Check-in on the day of surgery is at the Admitting Department located on the 9th floor of [facility]. DIET Nothing to eat or drink after midnight on the night prior to surgery, including water. Your clinician will instruct you on what medications to take the morning of surgery. MEDICATIONS TYLENOL is OK to continue taking. Please stop the following medications for SEVEN days prior to surgery: - Ibuprofen - Aspirin (unless necessary to keep taking for cardiac reasons) - Vitamins - Minerals - Over the counter herbal supplements Unless otherwise directed by your provider, do not take any Aspirin, Vitamin E or non-stero idal anti-inflammatory (NSAIDs i.e. Advil, Aleve, Ibuprofen) or herbal supplements seven day s prior to your surgery. These drugs may interfere with normal blood clotting and may cause excessive bleeding and bruising during or after the surgery. Please see the list below, [facility] has a list of products that contain Aspirin, Ibuprofen, or Vitamin E. If you are taking Coumadin (warfarin), Plavix or any other blood thinners please let you r surgical team know as medication changes will be necessary. If you need a pain medication for general purposes, use Tylenol as directed. If you are in doubt about any medications that you are taking, please contact our office . Products Containing Aspirin [place], Anacin, Anexsia with Codeine, Andynos, Aspirin, Aspirin suppositories, Ascrip tin, Aspergum, Axotal, B-A-C, Baby Aspirin, Nader, BC Powder, Bexophene, Buffaprin, Bufferin , Buffinol, Cama-Arthritis Strength, Congespirin, [place], Coricidin, Damason, Darvon, Dristan, Rosetta-Gesic, Digel, Dolprin #3 Tablets, Donatab, Doxaphene, Duragesic, Easprin, Ecotrin, Emag rin Forte, Emiprin, Emprazil, Equagesic, Equazine M, Excedrin, Fiogesic, Fiorgen PH, Fiorice t, Fiorinal, 4-Way Cold Tablet, Gemnisyn, Indocin, Liquprin, Lortab ASA, Magnaprin, Marnal, Meprobamate, Midol, Momentum, Norgesic, Prospect, Orphengesic, Pabalate, P-A-C, Percodan, Pre salin, Robaxasil, Roxiprin, Saleto, Salocol, SK-65 Compound, Sine-Aid, Sine-Off, [place], Supac, Talwin Compound, Trigesic, Tolectin, Traiminicin, Vanquish, ZORprin, Zomax Products Containing Ibuprofen Advil, Aleve, Haltran, Medipren, Midol, Motrin, Naproxyn, Nuprin, Rufen Herbal Medications Ephedra: discontinue 24 hours before surgery Garlic: discontinue 7 days prior to surgery Ginkgo: discontinue 36 hours prior to surgery Ginseng: discontinue 7 days prior to surgery Kava: discontinue 24 hours prior to surgery Ashley s Wort: discontinue 5 days prior to surgery Valerian: discontinue several weeks prior to surgery Other Products Which May Promote Bleeding Vitamin E, Gingko Biloba, Marine Fatty Acids, Marenisco-3 Fish Oil Supplement PRE-OP BATHING/SHOWER INSTRUCTIONS with [facility] Bathe or shower the evening before and the morning of your surgery. Use 1/2 of this bottle of soap for the evening cleansing and 1/2 of this bottle of so ap in the morning. Wash from your neck to your toes. Do NOT wash your face, hair, or genitals with this solution. Do NOT shave the surgical area as this can increase risk for infection. After your shower or bath do NOT apply lotions, powders or deodorant. Please get into clean pajamas and sheets after your evening shower. DIET Nothing to eat or drink after midnight on the night prior to surgery, including water, unle ss instructed otherwise. Your clinician will instruct you on what medications to take the mo rning of surgery. Not following these instructions may lead to a delay and/or cancellation o f your procedure. SMOKING You should not smoke for four weeks prior to the procedure and at least two weeks after the procedure. Smoking can significantly affect the outcome of your procedure. Smoking near the time of surgery causes a more acute narrowing of the blood vessels, which may lead to decre ased blood flow to the tissue, poor healing, bad scars, or actual loss of tissue. Check out the free [place] Quit Line - The Quit Line is open 24 hours a day, seven days a we ek. The Quit Line is a telephone and web-based counseling service to help [place]ians quit us ing tobacco and nicotine products. .QUIT.NOW ( ) or www.quitnow.net/[place] PARKING Parking at the Hospital for patients and visitors is available in the [facility] [email or web address] tructure located across from the emergency department. Patient parking is available on level 1 and 3. Metered parking is available on the top level. Parking at [facility] is available in the building's parking structure. For additional parking options visit [email or web address]. TRANSPORTATION You will require transportation home on the day of discharge. Pain medications and physical activity restrictions may limit your ability to drive safely. CANCELLING YOUR PROCEDURE Please notify the general surgery office at [phone] as soon as possible should you nee d to cancel or change your surgery date. We will attempt to reschedule your procedure in a t imely manner, however, due to a limited amount of operating room time a waiting list is not uncommon. ILLNESS Please call our office with any signs of illness such as cold, flu, infection, fever, or sk in rash/infection any time prior to your surgery. documented in this encounter Progress Notes Yann Ireland MD - 07/06/2019 9:50 AM PDT INGUINAL HERNIA DATE: 07/06/2019 Author: Yann Ireland MD PCP: No Pcp Per PATIENT Interval History: Sara Caballero is a 33 y.o. female with HTN, glucose intolerance and obesity s/p laparoscopic sleeve gastrectomy (08/31/[address] Downing - has lost 70+ l bs since surgery). Other surgical history is notable for diagnostic laparoscopy (2009), lapa roscopic salpingectomy (2012) and umbilical hernia repair with mesh (2014 - op note unavaila ble). She now has a recurrence of her umbilical hernia and has been referred here to discuss repair. Her prior surgeries were performed in [place], [place] with Dr. Arthur Kuo. She repor ts a 2014 umbilical hernia repair with mesh placement, and subsequent mesh infection. She pl ans to bring her prior medical records to her next visit, likely on the day of surgery to juana dalton surgical history. She has a history of pre-diabetes prior to her gastric sleeve and no w she is no longer pre-diabetic. She does not have HTN, no history of heart attack. Today in clinic, she reports when she bends over her hernia protrudes out and it causes sig nificant nausea. She has developed increased urinary frequency and when she has pressure on the lower border of her hernia she has the urge to urinate. She intermittently feels light-h eaded when she stands from lying down or from bending over. She believes this is related to fluid intake, and plans to drink more water. She denies any obstructive symptoms, is tolerating PO without any n/v and having regular no n-bloody BMs with occasional constipation. She is a non-smoker. 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 Review of Systems Constitutional: Negative for chills, fever and malaise/fatigue. HENT: Negative for hearing loss and nosebleeds. Eyes: Negative for blurred vision and double vision. Respiratory: Negative for cough and shortness of breath. Cardiovascular: Negative for chest pain and leg swelling. Gastrointestinal: Negative for diarrhea, nausea and vomiting. Genitourinary: Positive for frequency and urgency. Negative for dysuria and hematuria. Endo/Heme/Allergies: Does not bruise/bleed easily. RISK FACTORS FOR HERNIA: Smoking: No - former GI or Issues: Yes - diverticulitis Prior Repairs: Yes- Umbilical hernia repair 2014, Hx of mesh excision for infection and rep lacement? MESH: Yes - When? 2014 What kind? 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 Can walk greater than 10 blocks, very active with her work . Past Surgical History Procedure Laterality Date Diagnostic laparoscopy 2009 Fallopian tube transection 2012 Ventral hernia repair with mesh 2013 Laparoscopic sleeve gastrectomy 08/31/[address] [facility] [address] Downing Past Medical History: Diagnosis Date Anxiety Asthma Depression Diverticulitis Glucose intolerance (impaired glucose tolerance) HTN (hypertension) Irregular periods Morbid obesity with BMI of 40.0-44.9, adult (HCC) Pneumonia Ventral hernia, recurrent Social History Socioeconomic History Marital status: Spouse name: Not on file Number of children: Not on file Years of education: Not on file Highest education level: Not on file Occupational History Occupation: unemployed Social Needs Financial resource strain: Not on file Food insecurity: Worry: Not on file Inability: Not on file Transportation needs: Medical: Not on file Non-medical: Not on file Tobacco Use Smoking status: Former Smoker Packs/day: 0.10 Years: 5.00 Pack years: 0.50 Types: Cigarettes Last attempt to quit: 10/25/2006 Years since quittin.7 Smokeless tobacco: Never Used Substance and Sexual Activity Alcohol use: No Drug use: Yes Types: Oral Comment: marijuana - tinture Sexual activity: Not on file Lifestyle Physical activity: Days per week: Not on file Minutes per session: Not on file Stress: Not on file Relationships Social connections: Talks on phone: Not on file Gets together: Not on file Attends yazidi service: Not on file Active member of club or organization: Not on file Attends meetings of clubs or organizations: Not on file Relationship status: Not on file Other Topics Concern Not on file Social History Narrative Not on file Current Outpatient Medications Medication Sig ALBUTEROL INHL Inhale 2 puffs as needed. Bacillus coagulans/inulin (PROBIOTIC WITH PREBIOTIC ORAL) Take by mouth. cetirizine 10 mg oral tablet Take 10 mg by mouth as needed. Cholecalciferol (Vitamin D3) (VITAMIN D3) 5,000 unit oral tablet Take 1 tablet by mouth once daily. Indications: Vitamin D Deficiency (Patient taking differently: Take 1,000 Units by mouth once daily. Indications: Vitamin D Deficiency) desogestrel-ethinyl estradiol (ENSKYCE) 0.15-0.03 mg oral tablet Take 1 tablet by mouth once daily. Hold for two weeks after surgery. diazePAM 2 mg oral tablet Take 1 tablet by mouth three times daily. Stop taking if not helpful with spasms ergocalciferol 50,000 unit oral capsule Take 1 capsule by mouth every seven days. Indic ations: Vitamin D Deficiency (High Dose Therapy) fluticasone 50 mcg/actuation nasal spray,suspension Instill 1 spray into each nostril a s needed. hyoscyamine (LEVSIN) 0.125 mg oral tablet Take 1 tablet by mouth every four hours as ne eded. Indications: muscle spasms ibuprofen 200 mg oral capsule Take 800 mg by mouth as needed. Hold for 1 week after mitchell bennie methocarbamol 500 mg oral tablet Take 2 tablets by mouth three times daily as needed. M ay break into small pieces if needed. nystatin 100,000 unit/gram topical powder Apply to affected area two times daily. Apply to candidal lesions until lesions have healed. omeprazole 20 mg oral capsule,delayed release(DR/EC) Take 1 capsule by mouth once daily . Administer 30 to 60 minutes before meals. Or two hours after dinner omeprazole 20 mg oral capsule,delayed release(DR/EC) Take 1 capsule by mouth once daily . Administer 30 to 60 minutes before meals sertraline 50 mg oral tablet Take 75 mg by mouth once daily. ursodiol 250 mg oral tablet Take 1 tablet by mouth two times daily. Take with food. No current facility-administered medications for this visit. Allergies Allergen Reactions Adhesive Rash Iodine Contrast [Contrast Medium] Rash Latex Rash Naproxen Rash ROS: All 14 systems reviewed and negative, except those noted above in HPI Physical Exam: BP 130/75 (BP Location: Right upper arm, Patient Position: Sitting) | Pulse 62 | Resp 20 | Ht 1.676 m (5' 6") | Wt 79 kg (174 lb 3.2 oz) | SpO2 98% | BMI 28.12 kg/m | BSA 1.9 2 m General: Well nourished, well developed and in no apparent distress, alert and active, talk ative. HEENT: Grossly within normal limits, symmetric. Neck: Supple, full ROM, no adenopathy, no masses, trachea in midline. Skin: Turgor, scars. Chest: Clear to auscultation bilaterally, unlabored breathing. Cardiac: RRR, no MRG. Extremities warm and well-perfused. Abdomen: Laparoscopic surgery scars, Low midline scar, low midline hernia, non-tender, part ially incarcerated. Urinary urgency on palpation of the inferior margin of the hernia Extremities: No edema, normal ROM, no joint deformity, no muscle tenderness. Imaging: CT A/P without Contrast 01/22/2018 Outside Hospital, no read available, in [facility] Assessment: 33 y.o. female with HTN, glucose intolerance and obesity s/p laparoscopic sleev e gastrectomy (08/31/[address] Downing - has lost 70+ lbs since surgery). Other surgical history is notable for diagnostic laparoscopy (2009), laparoscopic salpingectomy (2012) and umbilical hernia repair with mesh (2013). She presents today with a partially incarcerated l ow midline incisional hernia. There is no indication of bowel obstruction or ischemia/becki ulation at this time. Plan: CT A/P to evaluate hernia The patient and I both agreed that she is appropriate for surgical intervention. Surgery details Date of surgery: September 22. Name of operation: Recurrent Ventral Hernia repair and excision of synthetic mesh Pre-op diagnosis: Incarcerated incisional hernia Estimated length of surgery: 3hrs. PMC: Phone. Position: Supine. No restrictions regarding any weight lifting or other physical activity. I believe that the benefits of physical exercise outweigh the risks of any worsening of her hernia. I coun seled her to reduce activity if she experiences groin/abdominal pain. I counseled her regarding the symptoms of incarceration and strangulation, including wor sening pain, bulging that cannot be reduced, skin changes such as redness, fevers, inability to tolerate food, and/or limited bowel function. The patient understands the need to be se en by a medical professional or come to the ER if they have persistent symptoms. Follow up as needed, but call with any questions or concerns. I spent 34 minutes with the patient. Greater than 50% of the time was spent counseling and educating the patient regarding weight loss, as well as other factors pertinent to inguinal hernia repair. YANN IRELAND MD [facility] [address] [facility] Mailcode: [place] [address] documented in this encounter Plan of Treatment +--------+---------+ + + + | Date | Type | Specialty | Care Team | Description | +--------+---------+ + + + | 10/05/ | Office | Surgery | Shu, | | | 2018 | Visit | | MD Yann [address] | | | [address] | | | | | | [place], [place] | | | | | | [address] | | | | | | [phone] | | | | | | | | +--------+---------+ + + + documented as of this encounter Visit Diagnoses + + | Diagnosis | + + | Ventral hernia with obstruction and without gangrene - Primary Ventral hernia, | | unspecified, with obstruction | + + documented in this encounter
--- OUTSIDE RECORDS SUMMARY | ~2019-09-27 | XMS | Encounter Summary ---
Demographics + + + | Address | [address] | | | [place] [address] | + + + | Home Phone | | + + + | Preferred Language | Unknown | + + + | Marital Status | | + + + | Caodaism Affiliation | CHR | + + + | Race | White | + + + | Ethnic Group | Not or | + + + Author + + + | Author | [facility] | + + + | Organization | [facility] | + + + | Address | Unknown | + + + | Phone | Unavailable | + + + Support + + + + + | Name | Relationship | Address | Phone | + + + + + | Stewart Corbett | ECON | [address] | | | | | [place] | | | | | [address] | | + + + + + Care Team Providers + +------+ + | Care Insulation Nozzleman Name | Role | Phone | + [...] | Morbid | Marta W, | [address] | | | | | obesity | AGACNP [address] | | | | | (HCC) | [address] | Mailcode: | | | | | Procedures | [place], | [address] | | | | | PHYSICAL | [place] | for Health | | | | | THERAPY | [address] | and Healing, | | | | | REFERRAL | Phone: | Building [address], | | | | | | | [address] | | | | | | Fax: | [place], [place] | | | | | | [phone] | [address] | | | | | | | Phone: | | | | | | | [phone] | | | | | | | Fax: | | | | | | | [phone] | +--------+--------+ + + + + Encounter Details +--------+ + + + + | Date | Type | Department | Care Team | Description | +--------+ + + + + | 10/27/ | General Administrator | Dig[facility]ive Health | Marta Simmons, | Morbid obesity (HCC) | | 2018 | | Center at [facility] [address] | AGACNP [address] | (Primary Dx) | | | | [address] | [address] [place], [place] | | | | | Mailcode: Center | [address] | | | | | for Health and | | | | | | Healing, [address] | | | | | | [place], [place] | | | | | | [address] | | | | | | [phone] | | | +--------+ + + + [...] Rd | | | | | | [place], [place] | | | | | | [address] | | | | | | [phone] | | | | | | | | +--------+---------+ + + + documented as of this encounter Visit Diagnoses + + | Diagnosis | + + | Morbid obesity (HCC) - Primary Morbid obesity | + + documented in this encounter"
--- OUTSIDE RECORDS SUMMARY | ~2019-09-27 | XMS | Encounter Summary ---
Demographics + + + | Address | [address] | | | [place] [address] | + + + | Home Phone [...] [place] | | | | | [address] | | + + + + + Care Team Providers + +------+ + | Care Salesforce Developer Name | Role | Phone | + +------+ + | Aleshia Martinez PA-C | PCP | | + +------+ + Encounter Details +--------+---------+ + + + | Date | Type | Department | Care Team | Description | +--------+---------+ + + + | 05/30/ | Office | Digestive Health | | Morbid obesity (HCC) | | 2018 | Visit | Center at [facility] [address] | | (Primary Dx) | | | | [address] | | | | | | Mailcode: Center | | | | | | for Health and | | | | | | Healing, [address] | | | | | | [place], [place] | | | | | | [address] | | | | | | [phone] | | | +--------+---------+ + + + [...] of Class: 1105 until 1225 (80 minutes [id number] with patient) Teaching Methods: PowerPoint and verbal [...] a journal with fluid/protein d. Transportation 7. [place] [facility] 8. Surgical [...] [address] | | | | | | [place], [place] | | | | | | [address] | | | | | | [phone] | | | | | | | | +--------+---------+ + + + documented as of this encounter Visit Diagnoses + + | Diagnosis | + + | Morbid obesity (HCC) - Primary Morbid obesity | + + documented in this encounter"
--- OUTSIDE RECORDS SUMMARY | ~2019-09-27 | XMS | Encounter Summary ---
Demographics + + + | Address | [address] | | | [place] [address] | + + + | Home Phone [...] [place] | | | | | [address] | | + + + + + Care Team Providers + +------+ + | Care Die Baker Name | Role | Phone | + +------+ + | Aleshia Martinez PA-C | PCP | | + +------+ + Encounter Details +--------+ + + + + | Date | Type | Department | Care Team | Description | +--------+ + + + + | 01/28/ | Abstract | Digestive Health | Clinic, Surgery | | | 2017 | | [place] [facility] [address] | | | | | | [address] | | | | | | Mailcode: [place] | | | | | | for Health and | | | | | | Healing, [address] | | | | | | [place], [place] | | | | | | [address] | | | | | | [phone] | | | +--------+ + + + [...] | | | | | | [place] | | | | | | [address] | | | | | | [phone] | | | | | | | | +--------+---------+ + + + documented as of this encounter Visit Diagnoses Not on filedocumented in this encounter"
--- OUTSIDE RECORDS SUMMARY | ~2019-09-27 | XMS | Encounter Summary ---
Demographics + + + | Address | [address] | | | [place] [address] | + + + | Home Phone [...] [place] | | | | | [address] | | + + + + + Care Team Providers + +------+ + | Care Applications Developer Name | Role | Phone | + +------+ + | Aleshia Martinez PA-C | PCP | | + +------+ + Reason for Visit + + + | Reason | Comments | + + + | Chart Abstract | 05/10/15 CT A/P | + + + Encounter Details +--------+ + + + + | Date | Type | Department | Care Team | Description | +--------+ + + + + | 02/04/ | Abstract | Digestive Health | Es Rausch, | Chart Abstract | | 2018 | | Center at [facility] [address] | MD [address] | (05/10/15 CT A/P) | | | | [address] | [place], [place] | | | | | Mailcode: [place] | [address] | | | | | for Health and | [phone] | | | | | [facility] | | | | | | [place], [place] | | | | | | [address] | | | | | | [phone] | | | +--------+ + + + [...] Rd | | | | | | [place], [place] | | | | | | [address] | | | | | | [phone] | | | | | | | | +--------+---------+ + + + documented as of this encounter Visit Diagnoses Not on filedocumented in this encounter"
--- OUTSIDE RECORDS SUMMARY | ~2019-09-27 | XMS | Encounter Summary ---
Demographics + + + | Address | [address] | | | [place] [address] | + + + | Home Phone [...] + + + | Author | [facility] | + + + | Organization | [facility] | + + + | Address | Unknown | + + + | Phone | Unavailable | + + + Support + + + + + | Name | Relationship | Address | Phone | + + + + + | Stewart Corbett | ECON | [address] | | | | | [place] | | | | | [address] | | + + + + + Care Team Providers + +------+ + | Care Director Of Annual Giving Name | Role | Phone | + +------+ + | Aleshia Martinez PA-C | PCP | | + +------+ + Reason for Visit + + + | Reason | Comments | + + + | Follow-up visit | 6 month bariatric follow up | + + + Encounter Details +--------+---------+ + + + | Date | Type | Department | Care Team | Description | +--------+---------+ + + + | 03/15/ | Office | Digestive Health | Marta Simmons, | S/P laparoscopic | | 2019 | Visit | Center at [facility] [address] | [facility] [address] | sleeve gastrectomy | | | | [address] | Ave [place], [place] | (Primary Dx); | | | | Mailcode: Center | [address] | Abnormal intestinal | | | | for Health and | [phone] | absorption | | | | Healing, [address] | | | | | | [place], [place] | | | | | | [address] | | | | | | [phone] | | | +--------+---------+ + + + [...] + + + | Blood Pressure | 123/75 | 03/15/2019 2:44 PM | | | | | PDT | | + + + + + | Pulse | 58 | 03/15/2019 2:44 PM | | | | | PDT | | + + + + + | Temperature | 36.7 C (98 F) | 03/15/2019 2:44 PM | | | | | PDT | | + + + + + | Respiratory Rate | 12 | 03/15/2019 2:44 PM | | | | | PDT | | + + + + + | Oxygen Saturation | - | - | | + + + + + | Inhaled Oxygen | - | - | | | Concentration | | | | + + + + + | Weight | 86.1 kg (189 lb 12.8 | 03/15/2019 2:44 PM | | | | oz) | PDT | | + + + + + | Height | 167.6 cm (5' 6") | 03/15/2019 2:44 PM | | | | | PDT | | + + + + + | Body Mass Index | 30.63 | 03/15/2019 2:44 PM | | | | | PDT [...] of this encounter Patient Instructions Patient Instructions Marta Simmons AGACNP - 03/15/2019 2:50 PM PDT-keep up the great w ork!! -try taking the omeprazole at night time, if symptoms continue, then increase your dose to twice daily. -you can be done with the ursodiol after this month -labs today if you have time Please join us for our twice monthly [facility] Bariatric Support Group meetings on the [employer] platform. Download the connie on your smartphone or visit the website [email or web address] Click "join a meeting " enter the meeting number below at the scheduled time. Our monthly schedule is as follows: The Wednesday of every month at 5:30PM The Wednesday of every month at 1:00PM The meeting number is: [phone] Please note that this is an optional support group, not mandatory, but can be helpful throu gh out your bariatric journey. documented in this encounter Progress Notes Marta Simmons AGACNP - 03/15/2019 2:50 PM PDTFormatting of this note might be differen t from the original. BARIATRIC SURGERY FOLLOW-UP ID: Sara AguilarRuth is a 33 y.o. patient who underwent a sleeve gastrectomy on 04/2018 with . The patient is now 6 months post operative and doing well. Subjective: Here today with her boyfriend-they are driving down to [place] today from this appointme nt. She has been working last night shifts at work recently. Feeling great overall. Meeting fluid goals daily. Gets about 60gm protein daily. Recently injured her foot, making it diffi cult to exercise right now. Prior to the injury she was going to the gym--working out regula rly with walking, weight training and bike exercises. Is experiencing GERD, needs omeprazole daily does have symptoms daily. She does have an umb ilical hernia, she is having to wear compression garments to keep the hernia from causing ir ritation. She states it doesn't cause intense pain but that it is uncomfortable and sometime s makes her nauseous. Sara feels like she has more energy than ever, she isn't used to her new body and sometimes feels like a "fat girl" still though she is very happy with her weight loss and is happy sh e got the surgery. Denies N/V/D/C 96lbs down overall from pre-op Weight at time of surgery : 262--> 254-->229-->189 (total 73 lb weight loss) BP 123/75 | Pulse 58 | Temp 36.7 C (98 F) (Oral) | Resp 12 | Ht 1.676 m (5' 6") | Wt 86.1 kg (189 lb 12.8 oz) | BMI 30.63 kg/m | BSA 2 m Bariatric Medications: MVI with iron twice daily: yes Calcium citrate 1500mg daily: yes Vitamin D 1000 mg daily : yes B12 500mcg SL daily or monthly shot: yes H2RB/PPI daily: yes Actigall/ ursodiol 300 BID: no Narcotics: no Symptoms: Nausea: None Dysphagia: None Vomiting: None Heartburn: 2-5 times per week Abd Pain: None Constipation: None Diarrhea: None History: Past Medical History: Diagnosis Date Anxiety [...] of fallopian tube Laparoscopic sleeve gastrectomy 08/31/[address] [facility] [address] Downing Social History Socioeconomic History Marital status: Spouse [...] Last attempt to quit: 10/25/2006 Years since quittin.3 Smokeless tobacco: Never Used Substance and Sexual Activity Alcohol use: No Drug use: Yes Types: Oral Comment: marijuana - tinture Sexual activity: Not on file Lifestyle Physical activity: Days per week: Not on file Minutes per session: Not on file Stress: Not on file Relationships Social connections: Talks on phone: Not on file Gets together: Not on file Attends nondenominational service: Not on file Active member of club or organization: Not on file Attends meetings of clubs or organizations: Not on file Relationship status: Not on file Intimate partner violence: Fear of current or ex partner: Not on file Emotionally abused: Not on file Physically abused: Not on file Forced sexual activity: Not on file Other Topics Concern Not on file Social History Narrative Not on file Family History Problem Relation Diabetes Mother High blood pressure Mother hyperlipidemia High blood pressure Brother hyperlipidemia Allergies Brother Allergies Allergies Allergen Reactions Adhesive Rash Iodine Contrast [Contrast Medium] Rash Latex Rash Naproxen Rash Medications Current Outpatient Medications: ALBUTEROL INHL, Inhale 2 puffs as needed. , Disp: , Rfl: Bacillus coagulans/inulin (PROBIOTIC WITH PREBIOTIC ORAL), Take [...] 0 ibuprofen 200 mg oral capsule, Take 800 mg by mouth as needed. Hold for 1 week after surger y, Disp: , Rfl: methocarbamol 500 mg oral tablet, Take 2 tablets by mouth three times daily as needed. May break into small pieces if needed., Disp: 30 tablet, Rfl: 0 nystatin 100,000 unit/gram topical powder, Apply to affected area two times daily. Apply to candidal lesions until lesions have healed., Disp: 15 g, Rfl: 2 omeprazole 20 mg oral capsule,delayed release(DR/EC), Take 1 capsule by mouth once daily. A dminister 30 to 60 minutes before meals, Disp: 30 capsule, Rfl: 2 sertraline 50 mg oral tablet, Take 75 mg by mouth once daily. , Disp: , Rfl: ursodiol 250 mg oral tablet, Take 1 tablet by mouth two times daily. Take with food., Disp: 60 tablet, Rfl: 4 Physical Exam General- Alert and oriented x4, No acute distress, well appearing Well hydrated: moist mucous membranes Abd - Soft, non-tender, non-distended, lap scars noted Assessment/Plan: Sara Caballero is a 33 y.o. female who is 6 months S/P sleeve gastrectomy. # S/p sleeve gastrectomy doing well. -Denies nausea, vomiting, diarrhea or constipation -continue with protein goal of 60-80g/day -continue with fluid intake goal of at least 64oz/day -Discussed diet choices, healthy foods, ways to increase protein and iron -Discussed daily exercise and types of exercises Intertriginous candidiasis -does have rashes in pannus, abd folds, and under breasts -use corn starch to help reduce moisture -place a towel between skin folds to reduce friction and promote drying -contact us if you have further problems 3. Risk for B12 deficiency, calcium malabsorption, protein malabsorption, vitamin d deficie ncy and iron deficiencies -Labs today: CBC, CMP, B12, PTH, vit D, ferritin will notify of results and replace as ne eded -continue with vitamin supplements as directed 4.Gastric Ulcer Prevention -needs to take omeprazole daily for heartburn symptoms -suggest she tries taking it at night time as this is usually when her symptoms occur -if she needs to increase to twice daily, counseled to please let us know -also instructed to avoid spicy/acidic/heartburn inducing foods 5. Gallstone Prevention -completing therapy--once she finishes this months rx she does not need to complete therapy . 6. Progress of Chronic Medical Conditions -AFSHAN: na -GERD: on going, needs PPI -Hyperlipidemia: na -HTN: na -Diabetes: na 7. Umbilical hernia -continue wearing compression garments -instructed her about signs of incarcerated hernia such as unrelenting pain, nausea/vomitin g. Instructed on how to reduce -if pain or discomfort continue or worsen before her next appt she is counseled to let us k now -advised her that we would like to wait until she is weight stable before repairing the her tammy. Return to bariatric clinic in 6 months for continued follow up See your primary care provider for adjusting any other medications. Call if any abdominal pain, n/v/d or other issues. Pt agrees to plan and will call and/or send KXEN message if any issues. Start time 1445, end time 1510. I spent a total of 25 minutes face to face with this patie nt. Over 50% of visit was in counseling. JOSETTE Seaman Bariatric Surgery Nurse Practitioner [facility] | [address] | [place], [place] | [address] | documented in th is encounter Plan of Treatment +--------+---------+ + + + | Date | Type | Specialty | Care Team | Description | +--------+---------+ + + + | 10/05/ | Office | Surgery | Shu, | | | 2018 | Visit | | MD Bryson [address] | | | | | [address] | | | | | | [place], [place] | | | | | | [address] | | | | | | [phone] | | | | | | | | +--------+---------+ + + + + +------+--------+ + + | Name | Type | Priori | Associated Diagnoses | Order Schedule | | | | ty | | | + +------+--------+ + + | CBC ONLY | Lab | Routin | S/P laparoscopic | Expected: 03/15/2019 | | | | e | sleeve gastrectomy | (Approximate), | | | | | Abnormal intestinal | Expires: 04/15/2020 | | | | | absorption | | + +------+--------+ + + | COMPLETE METABOLIC | Lab | Routin | S/P laparoscopic | Expected: 03/15/2019 | | SET | | e | sleeve gastrectomy | (Approximate), | | (NA,K,CL,CO2,BUN,CRE | | | Abnormal intestinal | Expires: 04/15/2020 | | AT,GLUC,CA,AST,ALT,B | | | absorption | | | SHRUTHI TOTAL,ALK | | | | | | PHOS,ALB,PROT TOTAL) | | | | | + +------+--------+ + + | FERRITIN | Lab | Routin | S/P laparoscopic | Expected: 03/15/2019 | | | | e | sleeve gastrectomy | (Approximate), | | | | | Abnormal intestinal | Expires: 04/15/2020 | | | | | absorption | | + +------+--------+ + + | HOMOCYSTEINE TOTAL, | Lab | Routin | S/P laparoscopic | Expected: 03/15/2019 | | PLASMA | | e | sleeve gastrectomy | (Approximate), | | | | | Abnormal intestinal | Expires: 04/15/2020 | | | | | absorption | | + +------+--------+ + + | IRON AND TIBC | Lab | Routin | S/P laparoscopic | Expected: 03/15/2019 | | | | e | sleeve gastrectomy | (Approximate), | | | | | Abnormal intestinal | Expires: 04/15/2020 | | | | | absorption | | + +------+--------+ + + | METHYLMALONIC ACID, | Lab | Routin | S/P laparoscopic | Expected: 03/15/2019 | | SERUM | | e | sleeve gastrectomy | (Approximate), | | | | | Abnormal intestinal | Expires: 04/15/2020 | | | | | absorption | | + +------+--------+ + + | PTH, SERUM | Lab | Routin | S/P laparoscopic | Expected: 03/15/2019 | | | | e | sleeve gastrectomy | (Approximate), | | | | | Abnormal intestinal | Expires: 04/15/2020 | | | | | absorption | | + +------+--------+ + + | VITAMIN B1, WHOLE | Lab | Routin | S/P laparoscopic | Expected: 03/15/2019 | | BLOOD | | e | sleeve gastrectomy | (Approximate), | | | | | Abnormal intestinal | Expires: 04/15/2020 | | | | | absorption | | + +------+--------+ + + | VITAMIN B-12 | Lab | Routin | S/P laparoscopic | Expected: 03/15/2019 | | | | e | sleeve gastrectomy | (Approximate), | | | | | Abnormal intestinal | Expires: 04/15/2020 | | | | | absorption | | + +------+--------+ + + | VITAMIN D, | Lab | Routin | S/P laparoscopic | Expected: 03/15/2019 | | 25-HYDROXY, SERUM | | e | sleeve gastrectomy | (Approximate), | | | | | Abnormal intestinal | Expires: 04/15/2020 | | | | | absorption | | + +------+--------+ + + documented as of this encounter Visit Diagnoses + + | Diagnosis | + + | S/P laparoscopic sleeve gastrectomy - Primary | + + | Abnormal intestinal absorption Unspecified intestinal malabsorption | + + documented in this encounter
--- OUTSIDE RECORDS SUMMARY | ~2019-09-27 | XMS | Encounter Summary ---
Demographics + + + | Address | [address] | | | [place] [address] [...] [place] | | | | | [address] | | + + + + + Care Team Providers + +------+ + | Care Renal Dietitian Name | Role | Phone | + [...] 06/21/ | Telephone | Digestive Health | Giladrdo Downing, | Other (Peer to peer | | 2018 | | Center at [facility] [address] | [address] | ) | | | | [address] | [place], [place] | | | | | Mailcode: [place] | [address] | | | | | for Health and | [phone] | | | | | [place] [address] | | | | | | [place], [place] | | | | | | [address] | | | | | | [phone] | | | +--------+ + + + [...] Rd | | | | | | [place], [place] | | | | | | [address] | | | | | | [phone] | | | | | | | | +--------+---------+ + + + documented as of this encounter Visit Diagnoses Not on filedocumented in this encounter"
--- OUTSIDE RECORDS SUMMARY | ~2019-09-27 | XMS | Encounter Summary ---
Demographics + + + | Address | [address] | | | [place] [address] | + + + | Home Phone [...] [place] | | | | | [address] | | + + + + + Care Team Providers + +------+ + | Care C Programmer Name | Role | Phone | + [...] | 2018 | Encounter | Center at [facility] [address] | | insurance plan for | | | | [address] | | surgery | | | | Mailcode: Center | | | | | | for Health and | | | | | | Healing, [address] | | | | | | [place], [place] | | | | | | [address] | | | | | | [phone] | | | +--------+ + + + [...] Rd | | | | | | [place], [place] | | | | | | [address] | | | | | | [phone] | | | | | | | | +--------+---------+ + + + documented as of this encounter Visit Diagnoses Not on filedocumented in this encounter"
--- OUTSIDE RECORDS SUMMARY | ~2019-09-27 | XMS | Encounter Summary ---
Demographics + + + | Address | [address] | | | [place] [address] | + + + | Home Phone [...] [place] | | | | | [address] | | + + + + + Care Team Providers + +------+ + | Care Oncology Radiation Physician Name | Role | Phone | + [...] 2019 | Encounter | Center at [facility] [address] | AGACNP [address] | | | | | [address] | [place], [place] | | | | | Mailcode: Center | [address] | | | | | for Health and | [phone] | | | | | Healing, [address] | | | | | | [place], [place] | | | | | | [address] | | | | | | | [...] 2019 | Visit | | MD Bryson [address] | | | | | | [address] | | | | | | [place], [place] | | | | | | [address] | | | | | | [phone] | | | | | | | | +--------+---------+ + + + documented as of this encounter Visit Diagnoses Not on filedocumented in this encounter"
--- OUTSIDE RECORDS SUMMARY | ~2019-09-27 | XMS | Encounter Summary ---
Demographics + + + | Address | [address] | | | [place] [address] | + + + | Home Phone [...] [place] | | | | | [address] | | + + + + + Care Team Providers + +------+ + | Care Crew Supervisor Name | Role | Phone | [...] | 2019 | Visit | Center at [facility] [address] | [facility] [address] | sleeve gastrectomy | | | | [address] | Ave [place], [place] | (Primary Dx); | | | | Mailcode: Center | [address] | Abnormal intestinal | | | | for Health and | [phone] | absorption | | | | Healing, [address] | | | | | | [place], [place] | | | | | | [address] | | | | | | [phone] | | | +--------+---------+ + + + [...] Please join us for our twice monthly [facility] Bariatric Support Group meetings on the Enohm platform. Download the connie on your smartphone or visit the website [email or web address] Click "join a meeting " enter the meeting number below at the scheduled time. Our monthly schedule is as follows: The Wednesday of every month at 5:30PM The Wednesday of every month at 1:00PM The meeting number is: [phone] Please note that this is an optional [...] with her boyfriend-they are driving down to [place] today from this appointme nt. She has [...] of fallopian tube Laparoscopic sleeve gastrectomy 08/31/2018 [facility] [address] Downing Social History Socioeconomic History [...] file Gets together: Not on file Attends worship service: Not on file Active member of [...] to plan and will call and/or send Pictorious message if any issues. Start time 1445, end time 1510. I spent a total of 25 minutes face to face with this patie nt. Over 50% of visit was in counseling. JOSETTE Seaman Bariatric Surgery Nurse Practitioner [facility] | [address] | [place], [place] | [address] | documented in th is encounter Plan [...] [place] | | | | | | [address] | | | | | | [phone] | | | | | | | [...]
--- OUTSIDE RECORDS SUMMARY | ~2019-09-27 | XMS | Encounter Summary ---
Demographics + + + | Address | [address] | | | [place] [address] | + + + | Home Phone [...] [place] | | | | | [address] | | + + + + + Care Team Providers + +------+ + | Care Rolled Materials Worker Name | Role | Phone | [...] 2019 | Encounter | Center at [facility] [address] | MD [address] | follow up | | | | [address] | [place], [place] | appointment | | | | Mailcode: Center | [address] | | | | | for Health and | [phone] | | | | | Healing, [address] | | | | | | [place], [place] | | | | | | [address] | | | | | | [phone] | | | +--------+ + + + [...] 2019 | Visit | | MD Bryson [address] | | | | | | [address] | | | | | | [place], [place] | | | | | | [address] | | | | | | [phone] | | | | | | | | +--------+---------+ + + + documented as of this encounter Visit Diagnoses Not on filedocumented in this encounter"
--- OUTSIDE RECORDS SUMMARY | ~2019-09-27 | XMS | Encounter Summary ---
Demographics + + + | Address | [address] | | | [place] [address] | + + + | Home Phone [...] [place] | | | | | [address] | | + + + + + Care Team Providers + +------+ + | Care Adolescent Medicine Specialist Name | Role | Phone | + +------+ + | Aleshia Martinez PA-C | PCP | | + +------+ + Encounter Details +--------+ + + + + | Date | Type | Department | Care Team | Description | +--------+ + + + + | 08/31/ | Lab | LAB CORE [address] | | | | 2018 | Requisition | [address] | | | | | | [place] | | | | | | [address] | | | | | | [phone] | | | +--------+ + + + [...] Rd | | | | | | [place], [place] | | | | | | [address] | | | | | | [phone] | | | | | | | | +--------+---------+ + + + documented as of this encounter Procedures + +--------+ + + + | Procedure Name | Priori | Date/Time | Associated Diagnosis | Comments | | | ty | | | | + +--------+ + + + | HIV RAPID, HIV-1/2 | Routin | 08/31/2018 | | Results for this | | AB, HIV-P24 | e | 4:16 PM | | procedure are in the | | AG,W/REFLEX | | PST | | results section. | | CONFIRMATION | | | | | | ED/OB/EHS ONLY | | | | | + +--------+ + + + | HEPATITIS B SURFACE | Routin | 08/31/2018 | | Results for this | | AG W/REFLEX IF | e | 4:16 PM | | procedure are in the | | INDICATED | | PST | | results section. | + +--------+ + + + | HEPATITIS C VIRUS | Routin | 08/31/2018 | | Results for this | | W/CONFIRMATION | e | 4:16 PM | | procedure are in the | | | | PST | | results section. | + +--------+ + + + documented in this encounter Results HEP C AB; W/CONFIRMATION BY QUANTITATIVE PCR (08/31/2018 4:16 PM PST) + + + + + + | Component | Value | Ref Range | Performed | Pathologist | | | | | At | Signature | + + + + + + | HEP C AB | Not Detected | Not Detected | [facility] | | | | | [...] [facility] | [address] | [place] [address] | | | SERVICES, CORE | [address] | | | + + + + + HIV RAPID, HIV-1/2 AB, HIV-P24 AG,W/REFLEX CONFIRMATION ED/OB/EHS ONLY (08/31/2018 4:16 PM PST) + + + + + + | Component | Value | Ref Range | Performed | Pathologist | | | | | At | Signature | + + + + + + | HIV P24 | Nonreactive | Nonreactive | [facility] | | | ANTIGEN | | | LABORATORY | | | | | | SERVICES, | | | | | | CORE | | + + + + + + | RAPID | Nonreactive | Nonreactive | [facility] | | | HIV-1/2 AB | | | LABORATORY | | | [...] | + + + + + | [facility] | [address] | [place] [address] | | | SERVICES, CORE | [address] | | | + + + + + HEPATITIS B SURFACE AG W/REFLEX CONFIRMATION IF INDETERMINATE RESULTS (08/31/2018 4:16 PM PST) + + + + + + | Component | Value | Ref Range | Performed | Pathologist | | | | | At | Signature | + + + + + + | HEPATITIS B | | | [facility] | | | SURFACE | | | LABORATORY | | | AG, SERUM | | | SERVICES, | | | | | | CORE | | + + + + + + | HEP B | Not Detected | Not Detected | [facility] | | | SURFACE AG | | | LABORATORY | | | [...] | + + + + + | [facility] | [address] | [place] [address] | | | SERVICES, CORE | [address] | | | + + + + + documented in this encounter Visit Diagnoses Not on filedocumented in this encounter"
--- OUTSIDE RECORDS SUMMARY | ~2019-09-27 | XMS | Encounter Summary ---
Demographics + + + | Address | [address] | | | [place] [address] | + + + | Home Phone [...] [place] | | | | | [address] | | + + + + + Care Team Providers + +------+ + | Care Dry Cleaning Supervisor Name | Role | Phone | + +------+ + | Aleshia Martinez PA-C | PCP | | + +------+ + Encounter Details +--------+ + + + + | Date | Type | Department | Care Team | Description | +--------+ + + + + | 08/31/ | Procedure | 6A [facility] | | | | 2018 | Pass | [facility] | | | | | | Admitting Desk | | | | | | Located on the 9th | | | | | | floor [address] [facility] [facility] [address] | | | | | | [address] | | | | | | [place], [place] | | | | | | [address] | | | +--------+ + + + [...] Rd | | | | | | [place], [place] | | | | | | [address] | | | | | | [phone] | | | | | | | | +--------+---------+ + + + documented as of this encounter Visit Diagnoses Not on filedocumented in this encounter"
--- OUTSIDE RECORDS SUMMARY | ~2019-09-27 | XMS | Encounter Summary ---
Demographics + + + | Address | [address] | | | [place] [address] | + + + | Home Phone | | + + + | Preferred Language | Unknown | + + + | Marital Status | | + + + | Alevism Affiliation | CHR | + + + | Race | White | + + + | Ethnic Group | Not or | + + + Author + + + | Author | [facility] | + + + | Organization | [facility] | + + + [...] [place] | | | | | [address] | | + + + + + Care Team Providers + +------+ + | Care Metallurgical Engineering Teacher Name | Role | Phone | [...] | Pain | Diagnoses | Clarke, | Cementing Bulk Material Operator Psych | | | | Management | Morbid | Yumiko, ACNP | Chh[address] | | | | | obesity with | [address] | | | | | BMI of | [address] | Mailcode: | | | | | 40.0-44.9, | [place], [place] | 15 Center | | | | | adult (HCC) | [address] | for Health | | | | | Borderline | Phone: | and Healing, | | | | | diabetes | [phone] | Building 1, | | | | | Essential | Fax: | 15th Floor | | | | | hypertension | [phone] | [place], [place] | | | | | Mild | | [address] | | | | | intermittent | | Phone: | | | | | asthma | | [phone] | | | | | without | | Fax: | | | | | complication | | [phone] | | | | | Anxiety | [...] 04/20/ | Office | [facility] at [facility] | Dylan Abraham, | Morbid obesity with | | 2017 | Visit | 15 [address] | PhD [address] | BMI of 40.0-44.9, | | | | [address] Mailcode: | [address] [place], [place] | adult ([facility]) (Primary | | | | [facility] Center for | [address] | Dx); Generalized | | | | Health and Healing, | [phone] | anxiety disorder; | | | | Building | | Borderline diabetes; | | | | Floor [place], [place] | | Major depressive | | | | [address] | | disorder, recurrent, | | | | [phone] | | in partial | | | | | | remission ([facility]); | | | | | | Essential [...] Name: Sara Caballero : 1985 Medical Record: [id number] Age:32 y.o. Weight: 278 lbs BMI: 44 Identifying Information: Sara Caballero is a 32 y.o. female who lives with her emily band, and her cousin and the cousin's 4 children in [place], [place]. She was referred for psy chological [...] yle. 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 For enjoyment the patient does craft s, [...] to improve her consistency with following the dental associate's recommendations, especially eating more consistently throughout the day. 4. She should continue her current walking and pool exercise routines. 5. She is urged to participate in a Bariatric Surgery Support Group. Total time I spent was approximately 50 minutes idkz-wn-tsdl with the patient and approxima tely 1 hour 50 minutes of njv-vglr-gd-face testing, interpreting and synthesizing results. Dylan Abraham, PhD [facility] 15TH FLOOR [address] [facility] Mail Code: [address] [address] documented in this en counter [...] Rd | | | | | | [place], [place] | | | | | | [address] | | | | | | [phone] | | | | | | | [...]
--- OUTSIDE RECORDS SUMMARY | ~2019-09-27 | XMS | Encounter Summary ---
Demographics + + + | Address | [address] | | | [place] [address] | + + + | Home Phone [...] [place] | | | | | [address] | | + + + + + Care Team Providers + +------+ + | Care Professor Of Social Work Name | Role | Phone | + [...] | | [address] | Ave [place], [place] | encounter) | | | | Mailcode: Center | [address] | | | | | for Health and | [phone] | | | | | [facility] 2 | | | | | | [place], [place] | | | | | | [address] | | | | | | [phone] | | | +--------+ + + + [...] 2019 | Visit | | MD Bryson [address] | | | | | | [address] | | | | | | [place], [place] | | | | | | [address] | | | | | | [phone] | | | | | | | | +--------+---------+ + + + documented as of this encounter Visit Diagnoses Not on filedocumented in this encounter"
--- OUTSIDE RECORDS SUMMARY | ~2019-09-27 | XMS | Encounter Summary ---
Demographics + + + | Address | [address] | | | [place] [address] | + + + | Home Phone [...] [place] | | | | | [address] | | + + + + + Care Team Providers + +------+ + | Care Defence Force Senior Officer Name | Role | Phone | [...] Pharmacy | | | | | | [address] | | | | | | Jessica [place], | | | | | | [place] [address] | | | | | | [phone] | | | +--------+ + + + [...] Rd | | | | | | [place], [place] | | | | | | [address] | | | | | | [phone] | | | | | | | | +--------+---------+ + + + documented as of this encounter Visit Diagnoses Not on filedocumented in this encounter"
--- OUTSIDE RECORDS SUMMARY | ~2019-09-27 | XMS | Encounter Summary ---
Demographics + + + | Address | [address] | | | [place] [address] | + + + | Home Phone [...] [place] | | | | | [address] | | + + + + + Care Team Providers + +------+ + | Care Associate Chemist Name | Role | Phone | + +------+ + | Aleshia Martinez PA-C | PCP | | + +------+ + Encounter Details +--------+ + + + + | Date | Type | Department | Care Team | Description | +--------+ + + + + | 09/25/ | Pharmacy | Outpatient Retail | | | | 2019 | Visit | Clinic Pharmacy | | | | | | [address] | | | | | | Jessica [place], | | | | | | [place] [address] | | | | | | [phone] | | | +--------+ + + + [...] Rd | | | | | | [place], [place] | | | | | | [address] | | | | | | [phone] | | | | | | | | +--------+---------+ + + + documented as of this encounter Visit Diagnoses Not on filedocumented in this encounter"
--- OUTSIDE RECORDS SUMMARY | ~2019-09-27 | XMS | Encounter Summary ---
Demographics + + + | Address | [address] | | | [place] [address] | + + + | Home Phone | | + + + | Preferred Language | Unknown | + + + | Marital Status | | + + + | Judaism Affiliation | CHR | + + + | Race | White | + + + | Ethnic Group | Not or | + + + Author + + + | Author | [facility] | + + + | Organization | [facility] | + + + | Address | Unknown | + + + | Phone | Unavailable | + + + Support + + + + + | Name | Relationship | Address | Phone | + + + + + | Stewart Corbett | ECON | [address] | | | | | [place] | | | | | [address] | | + + + + + Care Team Providers + +------+ + | Care Tile Grader Name | Role | Phone | + +------+ + | Aleshia Martinez PA-C | PCP | | + +------+ + Encounter Details +--------+ + + + + | Date | Type | Department | Care Team | Description | +--------+ + + + + | 05/03/ | Abstract | Digestive Health | Clinic, Surgery | | | 2017 | | [place] [facility] [address] | | | | | | [address] | | | | | | Mailcode: [place] | | | | | | for Health and | | | | | | Healing, Building 2 | | | | | | [place], [place] | | | | | | [address] | | | | | | [phone] | | | +--------+ + + + [...] Rd | | | | | | [place] | | | | | | [address] | | | | | | [phone] | | | | | | | | +--------+---------+ + + + documented as of this encounter Visit Diagnoses Not on filedocumented in this encounter"
--- OUTSIDE RECORDS SUMMARY | ~2019-09-27 | XMS | Encounter Summary ---
Demographics + + + | Address | [address] | | | [place] [address] | + + + | Home Phone [...] [place] | | | | | [address] | | + + + + + Care Team Providers + +------+ + | Care Engraver Wood Name | Role | Phone | + [...] Outside Records | | 2018 | | [place] [address] | [facility] [address] | Received (01/22/2018 | | | | [place] Mailcode: CH4S | [place], [place] | ED Notes- St. | | | | [facility] | [address] | Wilfr[place]) | | | | and Healing, | [phone] | | | | | [facility] | | | | | | [place], [place] | | | | | | [address] | | | | | | [phone] | | | +--------+ + + + [...] Rd | | | | | | [place] | | | | | | [address] | | | | | | [phone] | | | | | | | | +--------+---------+ + + + documented as of this encounter Visit Diagnoses Not on filedocumented in this encounter"
--- OUTSIDE RECORDS SUMMARY | ~2019-09-27 | XMS | Encounter Summary ---
Demographics + + + | Address | [address] | | | [place] [address] | + + + | Home Phone [...] [place] | | | | | [address] | | + + + + + Care Team Providers + +------+ + | Care Ward Maid Name | Role | Phone | + [...] | 2017 | Visit | Center at [facility] [address] | | BMI of 40.0-44.9, | | | | [address] | | adult (HCC) (Primary | | | | Mailcode: Center | | Dx) | | | | for Health and | | | | | | [facility], Building 2 | | | | | | [place], [place] | | | | | | [address] | | | | | | [phone] | | | +--------+---------+ + + + [...] Class Pre-Surgery Class #1 prior to having Tobias-En-Y gastric bypass surgery or Sleeve Gastrectomy . Documented Time of Class: 2:00/3:00 until 3:00/4:00 (60 minutes huie-fc-ncnm with patient) OBJECTIVE: Height: Ht Readings from [...] or sharing information. Yes [address] Al[address], [facility], LD [facility] Bariatrics [phone] documented in this enco unter Plan of Treatment +--------+---------+ + + + | Date | Type | Specialty | Care Team | Description | +--------+---------+ + + + | 10/05/ | Office | Surgery | Shu, | | | 2019 | Visit | | MD Bryson [address] | | | | | [address] | | | | | | [place], [place] | | | | | | [address] | | | | | | [phone] | | | | | | | | +--------+---------+ + + + documented as of this encounter Visit Diagnoses + + | Diagnosis | + + | Morbid obesity with BMI of 40.0-44.9, adult (HCC) - Primary | + + documented in this encounter
--- OUTSIDE RECORDS SUMMARY | ~2019-09-27 | XMS | Encounter Summary ---
Demographics + + + | Address | [address] | | | [place] [address] | + + + | Home Phone [...] [place] | | | | | [address] | | + + + + + Care Team Providers + +------+ + | Care Box Builder Name | Role | Phone | [...] | | 2019 | | Center at [facility] [address] | AGACNP [address] | Received | | | | [address] | Ave [place], [place] | | | | | Mailcode: Center | [address] | | | | | for Health and | [phone] | | | | | [facility] 2 | | | | | | [place], [place] | | | | | | [address] | | | | | | [phone] | | | +--------+ + + + [...] [address] | | | | | | [place] | | | | | | [address] | | | | | | [phone] | | | | | | | | +--------+---------+ + + + documented as of this encounter Visit Diagnoses Not on filedocumented in this encounter"
--- OUTSIDE RECORDS SUMMARY | ~2019-09-27 | XMS | Encounter Summary ---
Demographics + + + | Address | [address] | | | [place] [address] | + + + | Home Phone [...] [place] | | | | | [address] | | + + + + + Care Team Providers + +------+ + | Care Machine Shop Inspector Name | Role | Phone | [...] Description | +--------+--------+ + + + | 01/17/ | Refill | Digestive Health | Gildardo Downing, | Refill Request | | 2019 | | Center at [facility] [address] | MD [address] | | | | | [address] | [place], [place] | | | | | Mailcode: [place] | [address] | | | | | for Health and | | | | | | [place] [address] | | | | | | [place], [place] | | | | | | [address] | | | | | | | [...] [place] | | | | | | [address] | | | | | | [phone] | | | | | | | | +--------+---------+ + + + documented as of this encounter Visit Diagnoses Not on filedocumented in this encounter"
--- OUTSIDE RECORDS SUMMARY | ~2019-09-27 | XMS | Encounter Summary ---
Demographics + + + | Address | [address] | | | [place] [address] | + + + | Home Phone | | + + + | Preferred Language | Unknown | + + + | Marital Status | | + + + | Hindu Affiliation | CHR | + + + | Race | White | + + + | Ethnic Group | Not or | + + + Author + + + | Author | [facility] | + + + | Organization | [facility] | + + + | Address | Unknown | + + + | Phone | Unavailable | + + + Support + + + + + | Name | Relationship | Address | Phone | + + + + + | Stewart Corbett | ECON | [address] | | | | | [place] | | | | | [address] | | + + + + + Care Team Providers + +------+ + | Care Object Oriented Developer Name | Role | Phone | [...] | | 2017 | | Center at [facility] [address] | | Bariatric Surgery | | | | [address] | | | | | | Mailcode: Center | | | | | | for Health and | | | | | | [facility], Building 2 | | | | | | [place], [place] | | | | | | [address] | | | | | | [phone] | | | +--------+ + + + [...] Rd | | | | | | [place], [place] | | | | | | [address] | | | | | | [phone] | | | | | | | | +--------+---------+ + + + documented as of this encounter Visit Diagnoses Not on filedocumented in this encounter"
--- OUTSIDE RECORDS SUMMARY | ~2019-09-27 | XMS | Encounter Summary ---
Demographics + + + | Address | [address] | | | [place] [address] | + + + | Home Phone [...] [place] | | | | | [address] | | + + + + + Care Team Providers + +------+ + | Care Bridge Expert Name | Role | Phone | + [...] | | | or gangrene | | [place] for | | | | | | | Health and | | | | | | | Healing, | | | | | | | Building 2 | | | | | | | [place], [place] | | | | | | | [address] | | | | | | | Phone: | | | | | | | [phone] | | | | | | | Fax: | | | | | | | [phone] | + +--------+ + + + + Encounter Details +--------+---------+ + + + | Date | Type | Department | Care Team | Description | +--------+---------+ + + + | 01/06/ | Office | Digestive Health | Chetna Alves, RD | Morbid obesity with | | 2018 | Visit | Center at [facility] [address] | [address] | BMI of 40.0-44.9, | | | | [address] | [address] [place], | adult (HCC) (Primary | | | | Mailcode: Center | [place] [address] | Dx); Ventral hernia | | | | for Health and | | with obstruction | | | | Healing, Building 2 | | and without | | | | [place], [place] | | gangrene; Borderline | | | | [address] | | diabetes | | | | [phone] | | | +--------+---------+ + + + [...] Chetna Alves, RD - 01/06/2018 3:00 PM PDT Referring Provider: Outpatient Nutrition Clinic, Pre-Bariatric Surgery Evaluation Initial diet consultation prior to having Tobias-En-Y gastric bypass surgery or Sleeve Gastre ctomy. Documented Time of Visit: 3:10 until 4:00 (50 minutes xgmp-uz-kept with patient) SUBJECTIVE: Pt comes in alone from [facility]. Patient viewed online seminar prior to [...] or dr ink water. Has been doing [employer]. Says she is alone a lot. 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 4. Call or send [employer] message to dietitian with any questions. Contact information was provided. Follow up with dietitian 1-2 weeks after surgery at first post-op visit. Chetna Alves RD, [facility], LD [facility] Bariatrics [phone] documented in this enco unter Plan of Treatment +--------+---------+ + + + | Date | Type | Specialty | Care Team | Description | +--------+---------+ + + + | 10/05/ Office | Surgery | Shu, | | | 2018 | Visit | | MD Bryson [address] | | | | | [address] | | | | | | [place], [place] | | | | | | [address] | | | | | | [phone] | | | | | | | | +--------+---------+ + + + documented as of this encounter Procedures + +--------+ + + + | Procedure Name | Priori | Date/Time | Associated Diagnosis | Comments | | | ty | | | | + +--------+ + + + | ID MNT INITIAL | Routin | 01/07/2018 | Ventral hernia | | | ASSESSMNT X15MIN | e | 7:51 AM | with obstruction and | | | | | PDT | without gangrene | | | | | | Morbid obesity with | | | | | | BMI of 40.0-44.9, | | | | | | adult ([facility]) | | | | | | Borderline diabetes | | + +--------+ + + + documented in this encounter Visit Diagnoses + + | Diagnosis | + + | Morbid obesity with BMI of 40.0-44.9, adult (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
--- OUTSIDE RECORDS SUMMARY | ~2019-09-27 | XMS | Encounter Summary ---
Demographics + + + | Address | [address] | | | [place] [address] | + + + | Home Phone [...] [place] | | | | | [address] | | + + + + + Care Team Providers + +------+ + | Care Credit Verification Clerk Name | Role | Phone | + +------+ + | Aleshia Martinez PA-C | PCP | | + +------+ + Encounter Details +--------+ + + + + | Date | Type | Department | Care Team | Description | +--------+ + + + + | 10/07/ | MyChart | Digestive Health | Gildardo Downing, | RE: RE: RE: RE: RE: | | 2017 | Encounter | Center at [address] | MD [address] | Acid reflux | | | | [address] | [place], [place] | | | | | Mailcode: Center | [address] | | | | | for Health and | | | | | | [facility] 2 | | | | | | [place], [place] | | | | | | [address] | | | | | | | [...] Rd | | | | | | [place], [place] | | | | | | [address] | | | | | | [phone] | | | | | | | | +--------+---------+ + + + documented as of this encounter Visit Diagnoses Not on filedocumented in this encounter"
--- OUTSIDE RECORDS SUMMARY | ~2019-09-27 | XMS | Encounter Summary ---
Demographics + + + | Address | [address] | | | [place] [address] | + + + | Home Phone [...] [place] | | | | | [address] | | + + + + + Care Team Providers + +------+ + | Care Security Agent Name | Role | Phone | [...] LAPAROSCOPIC SLEEVE | | 2017 | | [facility] | [address] | GASTRECTOMY with EGD | | | | Admitting Desk | [place], [place] | | | | | Located on the | [address] | | | | | floor [address] [facility] | [phone] | | | | | [facility] | | | | | | [place], [place] | | | | | | [address] | | | +--------+---------+ + + + [...] might be differen t from the original. [facility] RED SURGERY INPATIENT DISCHARGE SUMMARY Author: GAUTAM [...] or Kefir, [place]oneyfield Yogurt, and Chioban i Welsh Yogurt are common brands with beneficial probiotics. [...] are available over the counter at most [facility] [employer] stores. Nausea/Vomiting/Difficulty Swallowing Nausea/Vomiting/Difficulty swallowing: Could be [...] hours per your instructions. Some medications, like [place], have Tylenol in it. Make sure you [...] (PCP) as this clinic does not provide [facility] chronic pain management services. When [...] hours by calling the surgery office at [phone]. - After hours, weekends and holidays, you may call the hospital carding machine operator at [phone] an d have the monorail crane operator Red Surgery Team paged. Destination Home Condition [...] Acute Care Why: follow up with bariatric AMMONIA REFRIGERATION TECHNICIAN Contact information [address] [facility] [address] Future Appointments Provider Department Dept Phone Center 09/07/2018 10:00 AM Chetna Alves Digestive [facility] at [facility] 6th Floor [phone] KATIA D AND NUT 09/07/2018 10:50 AM Emily Martinez Dig[facility]ive [facility] at [facility] 6th Floor [phone] D ig Health 09/29/2018 10:30 AM Tea Reece Dig[facility]ive [facility] at [facility] 6th Floor [phone] F OOD AND NUT 09/29/2018 11:20 AM Gildardo Downing [facility] at [facility] 6th Floor [phone] Di g Health 11/25/2018 10:00 AM Tea Reece [facility] at [facility] 6th Floor [phone] FO OD AND NUT 11/25/2018 10:50 AM Shanon Etienne Digestive [facility] at [facility] 6th Floor [phone] Dig Hea [facility] Discharging Physician: GAUTAM Leblanc Attending Physician: Gildardo Downing MD [facility] Red Surgery Pager# [phone] 10:42 AM 09/02/2018 documented in th is [...] if this helps. Gildardo Downing MD, FACS, [facility] Division of Bariatric Surgery [facility] | CH6D [address] [facility] [address] [facility] [address] | [place], [place] | [address] | Ludwin Tellez MD - 08/31/2018 8:54 [...] Ludwin Tellez MD General Surgery, PGY1 Pager: [phone] documented in this en counter Plan of Treatment +--------+---------+ + + + | Date | Type | Specialty | Care Team | Description | +--------+---------+ + + + | 10/05/ | Office | Surgery | Shu, | | | 2018 | Visit | | MD Bryson [address] | | | | | [address] | | | | | | [place], [place] | | | | | | [address] | | | | | | [phone] | | | | | | | [...] [facility] DEPT OF | [address] [facility] | [place], [place] | | | CARDIOLOGY | [address] | [address] | | + + + + + [...] [place] | [address] | [place], [place] | | | CHARITO POINT OF CARE | [facility] | [address] | | | TESTS | | | [...] (H) | 60 - 99 mg/dL | [facility] - | | | GLUCOSE, | | [...] ABDI | [address] | [place], [place] | | | CHARITO [facility] | [facility] | [address] | | | TESTS | | | [...] SURGEON: Gildardo Downing MD. | | | BRIM CUTTER: Jamie Gonzales MD R6. ANESTHESIA: Ke Strong [...] | | | Gildardo Downing MD, FACS, [facility] Bariatric Surgery | | | | [...] SURGEON: Gildardo Downing MD. | | | BRIM CUTTER: Jamie Gonzales MD R6. ANESTHESIA: Ke Strong [...] | | | Gildardo Downing MD, FACS, [facility] Bariatric Surgery | | | | | + + + CAPILLARY BLOOD GLUCOSE (NO CHG), POC (08/31/2018 11:23 AM PST) + +-------+ + + + | Component | Value | Ref Range | Performed | Pathologist | | | | | At | Signature | + +-------+ + + + | BLOOD | 75 | 60 - 99 mg/dL | [facility] - | | | GLUCOSE, | | [...] ABDI | [address] | [place], [place] | | | [facility] | [facility] | [address] | | | TESTS | | | [...]
--- OUTSIDE RECORDS SUMMARY | ~2019-09-27 | XMS | Encounter Summary ---
Demographics + + + | Address | [address] | | | [place] [address] | + + + | Home Phone [...] [place] | | | | | [address] | | + + + + + Care Team Providers + +------+ + | Care Bursar Name | Role | Phone | + [...] | | | | | 40.0-44.9, | [place], [place] | [facility] | | | | | adult (HCC) | [address] | for Health | | | | | Borderline | Phone: | and Healing, | | | | | diabetes | [phone] | Building 1, | | | | | Essential | Fax: | 15th Floor | | | | | hypertension | [phone] | [place], [place] | | | | | Mild | | [address] | | | | | intermittent | | Phone: | | | | | asthma | | [phone] | | | | | without | | Fax: | | | | | complication | | [phone] | | | | | Anxiety | [...] | Bariatri Surg | | | with TAR MAN | | obesity | Ganesh Holden MD | [address] | | | | | ([facility]) | [address] | | | | | Procedures | Guillermo Regan | Mailcode: | | | | | CONSULT TO | Shahla Sepulveda | [facility] | | | | | BARIATRIC | [place], [place] | [facility] | | | | | SURGERY | [address] | Healing, | | | | | | | Building 2 | | | | | | | [place], [place] | | | | | | | [address] | | | | | | | Phone: | | | | | | | [phone] | | | | | | | Fax: | | | | | | | [phone] | + + + + + + + Encounter Details +--------+---------+ + + + | Date | Type | Department | Care Team | Description | +--------+---------+ + + + | 01/06/ | Office | Digestive Health | Yumiko Clarke, | Morbid obesity with | | 2018 | Visit | [facility] at [facility] | ACN [address] | BMI of 40.0-44.9, | | | | [address] | Ave [place], [place] | adult (HCC) (Primary | | | | Mailcode: Center | [address] | Dx); Borderline | | | | for Health and | [phone] | diabetes; Essential | | | | Healing, Building 2 | | hypertension; Mild | | | | [place], [place] | | intermittent asthma | | | | [address] | | without | | | | [phone] | | complication; | | | | [...] diabetes 2. HTN takes atenolol, BP elevated tssfe=374/95 3. Ventral hernia with MESH 4. Hx [...] to your private appointme nt with the bulldozer mechanic. These classes will be scheduled apporoximately 1 [...] Psychological Evaluation: If your referral is at [facility], The Pain Management Office will call you [...] then schedule with the surgeon. Yumiko APPIAH HRBP Bariatric Surgery Nurse Practitioner [facility] | [address] | [place], [place] | [address] | Potential Contraindications to Bariatric Surgery Age [...] other providers does not guarantee that the [facility] Bariatric Surger y program will deem you a surgical candidate. documented in this encounter Progress Notes Yumiko Clarke ACNP - 01/06/2018 2:05 PM PDTFormatting of this note might be different fr om the original. BARIATRIC INITIAL VISIT Provider: Yumiko APPIAH HRBP Referring Provider: Aleshia Martinez PA-C Reason for [...] doesn't like side effects Transthoracic ECHO: no Mormon or cultural reason you would refuse blood [...] of lower extremity edema, hyperlipidemia. No CHF, CO, ischemic heart disease, DVT/PE, or pulmonary hypertension. [...] diabetes 2. HTN takes atenolol, BP elevated thdsf=179/95 3. Ventral hernia with MESH 4. Hx [...] to your private appointme nt with the bulldozer mechanic. These classes will be scheduled apporoximately 1 [...] Psychological Evaluation: If your referral is at [facility], The Pain Management Office will call you [...] with the surgeon. Yumiko Clarke DNP ACNP HRBP Bariatric Surgery Nurse Practitioner [facility] | [address] | [place], [place] | [address] | Potential Contraindications to Bariatric Surgery Age [...] other providers does not guarantee that the [facility] Bariatric Surger y program will deem you a surgical candidate. documented in this e ncounter Plan of Treatment +--------+---------+ + + + | Date | Type | Specialty | Care Team | Description | +--------+---------+ + + + | 10/05/ | Office | Surgery | Shu, | | | 2018 | Visit | | MD Bryson [address] | | | | | | [facility] | | | | | | [place], [place] | | | | | | [address] | | | | | | [phone] | | | | | | | [...] results section. | | | | | ([facility]) Borderline | | | | | [...] + + + + + | [facility] | [address] | [place] [address] | | | SERVICES, CORE | SHAHLA [...] | [facility] | | considered for monitoring correction glycemic control in patients with: | LABORATORY [...] [facility] | [address] | [place] [address] | | | SERVICES, SPECIAL | PARK [...] | | | | | determined by [facility] | | | | | | Laboratories. See | | | | | | Compliance Statement B: | | | | | | Screamin Daily Deals/CSPerformed | | | | | | by [email or web address],[address] | | | | | | Rashad Winter, [facility] | | | | | | [address] | | | | | | [phone].oBaz. | | | | | | Gerardo [...] [facility] | [address] | [place], [place] | | | [facility] | | [address] | | + + + + + [...] | | | LABORATORY | | | SLOVENIAN | | | SERVICES, | | | [...] | + + + + + | [facility] | [address] | [place] [address] | | | SERVICES, CORE | SHAHLA [...] | + + + + + | [facility] | [address] | [place] [address] | | | SERVICES, CORE | SHAHLA [...] + + + + + | [facility] | [address] | [place] [address] | | | SERVICES, CORE | SHAHLA [...] [facility] | [address] | [place] [address] | | | SERVICES, CORE | PARK [...] [facility] | [address] | [place] [address] | | | SERVICES, CORE | PARK [...] [facility] | [address] | [place] [address] | | | SERVICES, CORE | PARK [...] | + + + + + | [facility] | [address] | [place] [address] | | | SERVICES, KUSH | SHAHLA [...] | + + + + + | [facility] | [address] | [place], [place] | | | CARDIOLOGY | [address] | [address] | | + + + + + [...]
--- OUTSIDE RECORDS SUMMARY | ~2019-09-27 | XMS | Encounter Summary ---
Demographics + + + | Address | [address] | | | [place] [address] | + + + | Home Phone [...] [place] | | | | | [address] | | + + + + + Care Team Providers + +------+ + | Care Immersion Metal Cleaner Name | Role | Phone | [...] | | 2016 | anned | Services [address] | | | | | | [address] | | | | | | Mailcode: OP17A | | | | | | [facility] | | | | | | [place], [place] | | | | | | [address] | | | | | | [phone] | | | +--------+ + + + [...] Rd | | | | | | [place], [place] | | | | | | [address] | | | | | | [phone] | | | | | | | [...]
--- OUTSIDE RECORDS SUMMARY | ~2019-09-27 | XMS | Encounter Summary ---
Demographics + + + | Address | [address] | | | [place] [address] | + + + | Home Phone [...] [place] | | | | | [address] | | + + + + + Care Team Providers + +------+ + | Care Dermatology Physician Name | Role | Phone | + +------+ + | Aleshia Martinez PA-C | PCP | | + +------+ + Encounter Details +--------+ + + + + | Date | Type | Department | Care Team | Description | +--------+ + + + + | 06/23/ | Abstract | Digestive Health | Clinic, Surgery | | | 2017 | | [place] at [facility] [address] | | | | | | [address] | | | | | | Mailcode: [place] | | | | | | for Health and | | | | | | Healing, Building 2 | | | | | | [place], [place] | | | | | | [address] | | | | | | [phone] | | | +--------+ + + + [...] Rd | | | | | | [place] | | | | | | [address] | | | | | | [phone] | | | | | | | | +--------+---------+ + + + documented as of this encounter Visit Diagnoses Not on filedocumented in this encounter"
--- OUTSIDE RECORDS SUMMARY | ~2019-09-27 | XMS | Encounter Summary ---
Demographics + + + | Address | [address] | | | [place] [address] | + + + | Home Phone [...] [place] | | | | | [address] | | + + + + + Care Team Providers + +------+ + | Care Bow Stapler Name | Role | Phone | + [...] Pharmacy | | | | | | [address] | | | | | | Jessica Sepulveda [place], | | | | | | [place] [address] | | | | | | [phone] | | | +--------+ + + + [...] Rd | | | | | | [place], [place] | | | | | | [address] | | | | | | [phone] | | | | | | | | +--------+---------+ + + + documented as of this encounter Visit Diagnoses Not on filedocumented in this encounter"
--- OUTSIDE RECORDS SUMMARY | ~2019-09-27 | XMS | Encounter Summary ---
Demographics + + + | Address | [address] | | | [place] [address] | + + + | Home Phone [...] [place] | | | | | [address] | | + + + + + Care Team Providers + +------+ + | Care Nurse Sexual Assault Name | Role | Phone | + [...] | | | or gangrene | | [place] for | | | | | | | Health and | | | | | | | Healing, | | | | | | | Building 2 | | | | | | | [place], [place] | | | | | | | [address] | | | | | | | Phone: | | | | | | | [phone] | | | | | | | Fax: | | | | | | | [phone] | + +--------+ + + + + [...] | | | [address] | [address] | (Primary Dx) | | | | Mailcode: Center | [place], [place] | | | | | for Health and | [address] | | | | | [facility] [place] [address] | | | | | | [place], [place] | | | | | | [address] | | | | | | [phone] | | | +--------+---------+ + + + [...] of visit: 10:42am to 11:08am (26 minutes qimc-dl-ysyx with patient) Surgery: Sleeve Gastrectomy Date of [...] multivitamin & mineral (with iron) supplement, 2/day -6338-1435 mg calcium citrate with vitamin D/day (take in divided doses, not within 2 hour s of multivitamin or iron supplement) -500 mcg/day sublingual B12 supplement (or monthly injections) Continued to reinforce importance of mindful eating. Continue to increase physical activity. Follow up in [address], Pager # [phone] signed by Tea Reece RD at 09/29/2018 11:21 AM PSTdocument ed in this encounter Plan of Treatment +--------+---------+ + + + | Date | Type | Specialty | Care Team | Description | +--------+---------+ + + + | 10/05/ | Office | Surgery | Shu, | | | 2019 | Visit | | MD Bryson [address] | | | | | | [address] | | | | | | [place], [place] | | | | | | [address] | | | | | | [phone] | | | | | | | | +--------+---------+ + + + documented as of this encounter Procedures + +--------+ + + + | Procedure Name | Priori | Date/Time | Associated Diagnosis | Comments | | | ty | | | | + +--------+ + + + | [facility] | Routin | 09/29/2018 | [...]
--- OUTSIDE RECORDS SUMMARY | ~2019-09-27 | XMS | Encounter Summary ---
Demographics + + + | Address | [address] | | | [place] [address] | + + + | Home Phone [...] [place] | | | | | [address] | | + + + + + Care Team Providers + +------+ + | Care Strap Machine Operator Name | Role | Phone [...] Surgery | | | 2016 | | [place] [facility] [address] | | | | | | [address] | | | | | | Mailcode: [place] | | | | | | [facility] Health and | | | | | | Healing, Building [address] | | | | | | [place], [place] | | | | | | [address] | | | | | | [phone] | | | +--------+ + + + [...] Rd | | | | | | [place], [place] | | | | | | [address] | | | | | | [phone] | | | | | | | | +--------+---------+ + + + documented as of this encounter Visit Diagnoses Not on filedocumented in this encounter"
--- OUTSIDE RECORDS SUMMARY | ~2019-09-27 | XMS | Encounter Summary ---
Demographics + + + | Address | [address] | | | [place] [address] | + + + | Home Phone [...] [place] | | | | | [address] | | + + + + + Care Team Providers + +------+ + | Care Chick Room Supervisor Name | Role | Phone | [...] Medical Records | | 2018 | | [place] at [facility] [address] | | Review | | | | [address] | | | | | | Mailcode: [place] | | | | | | for Health and | | | | | | Healing, Building 2 | | | | | | [place], [place] | | | | | | [address] | | | | | | [phone] | | | +--------+ + + + [...] Rd | | | | | | [place], [place] | | | | | | [address] | | | | | | [phone] | | | | | | | | +--------+---------+ + + + documented as of this encounter Visit Diagnoses Not on filedocumented in this encounter"
--- OUTSIDE RECORDS SUMMARY | ~2019-09-27 | XMS | Encounter Summary ---
Demographics + + + | Address | [address] | | | [place] [address] | + + + | Home Phone [...] [place] | | | | | [address] | | + + + + + Care Team Providers + +------+ + | Care Hose Finisher Name | Role | Phone | [...] | 2017 | Visit | Center at [facility] [address] | | BMI of 40.0-44.9, | | | | [address] | | adult (HCC) (Primary | | | | Mailcode: Center | | Dx) | | | | for Health and | | | | | | [facility], Building 2 | | | | | | [place], [place] | | | | | | [address] | | | | | | [phone] | | | +--------+---------+ + + + [...] of Class: 2:00/3:00 until 3:00/4:00 (60 minutes jawr-fb-itnm with patient) OBJECTIVE: Height: Ht Readings from [...] or sharing information. Yes [address]tna [address], [facility], LD [facility] Bariatrics [phone] documented in this enco unter Plan of Treatment +--------+---------+ + + + | Date | Type | Specialty | Care Team | Description | +--------+---------+ + + + | 10/05/ | Office | Surgery | Shu, | | | 2019 | Visit | | MD Bryson [address] | | | | | | [address] | | | | | | [place], [place] | | | | | | [address] | | | | | | [phone] | | | | | | | | +--------+---------+ + + + documented as of this encounter Visit Diagnoses + + | Diagnosis | + + | Morbid obesity with BMI of 40.0-44.9, adult (HCC) - Primary | + + documented in this encounter
--- OUTSIDE RECORDS SUMMARY | ~2019-09-27 | XMS | Encounter Summary ---
Demographics + + + | Address | [address] | | | [place] [address] | + + + | Home Phone [...] [place] | | | | | [address] | | + + + + + Care Team Providers + +------+ + | Care Wire Galvanizer Name | Role | Phone | + [...] 2018 | Visit | Center at [facility] [address] | ACNP [address] | sleeve gastrectomy | | | | [address] | Ave [place], [place] | (Primary Dx); | | | | Mailcode: Center | [address] | Vitamin D | | | | for Health and | | deficiency; Vitamin | | | | [facility] | | B 12 deficiency; | | | | [place], [place] | | Morbid obesity (HCC) | | | | [address] | | | | | | | [...] encounter Patient Instructions Patient Instructions Emily Martinez [facility] - 09/07/2018 10:50 AM PST3. Take acid fence post driver fo r first 3 mos, then wean [...] cium, dairy or acid reducers) Calcium citrate 7436-8151 mg per day with vitamin D 1000 [...] f rom the original. BARIATRIC FOLLOW-UP Sara BloodJohnrAic is a 33 y.o. patient who underwent a sleeve gastrectomy by Dr. Sang malik. She is here for her 1 week post op visit. She stayed an extra day in the hospital for muscle spasms of her stomach treated with diaza romeo. Scheduled with weight checker following this appointment. Arrived on time, rooming [...] of fallopian tube Laparoscopic sleeve gastrectomy 08/31/2018 [facility] [address] Downing Social History Social History Marital [...] week 2. Labs:none today 3. Take acid fence post driver for first 3 mos, then wean off [...] in appointment: 30 Emily Martinez DNP, ACNP, ROOMING HOUSE KEEPER [employer] Roller Bariatric Surgery [facility] [place] documented in this encounter Plan of Treatment +--------+---------+ + + + | Date | Type | Specialty | Care Team | Description | +--------+---------+ + + + | 10/05/ | Office | Surgery | Shu, | | | 2018 | Visit | | MD Bryson [address] | | | | | [address] | | | | | | [place], [place] | | | | | | [address] | | | | | | [phone] | | | | | | | [...]
--- OUTSIDE RECORDS SUMMARY | ~2019-09-27 | XMS | Encounter Summary ---
Demographics + + + | Address | [address] | | | [place] [address] | + + + | Home Phone [...] [place] | | | | | [address] | | + + + + + Care Team Providers + +------+ + | Care Performance Consultant Name | Role | Phone | [...] To Surgery | | 2017 | | [place] at [facility] [address] | | - General | | | | [address] | | | | | | Mailcode: [place] | | | | | | for Health and | | | | | | [facility], Building 2 | | | | | | [place], [place] | | | | | | [address] | | | | | | [phone] | | | +--------+ + + + [...] [place] | | | | | | [address] | | | | | | [phone] | | | | | | | | +--------+---------+ + + + documented as of this encounter Visit Diagnoses Not on filedocumented in this encounter"
--- OUTSIDE RECORDS SUMMARY | ~2019-09-27 | XMS | Encounter Summary ---
Demographics + + + | Address | [address] | | | [place] [address] | + + + | Home Phone [...] [place] | | | | | [address] | | + + + + + Care Team Providers + +------+ + | Care Kiln Furniture Saw Tender Name | Role | Phone | [...] 2019 | Encounter | [facility] at [facility] [address] | AGACNP [address] | | | | | [address] | [place], [place] | | | | | Mailcode: Center | [address] | | | | | for Health and | [phone] | | | | | Healing, [address] | | | | | | [place], [place] | | | | | | [address] | | | | | | | [...] 2019 | Visit | | MD Bryson [address] | | | | | [address] | | | | | | [place], [place] | | | | | | [address] | | | | | | [phone] | | | | | | | | +--------+---------+ + + + documented as of this encounter Visit Diagnoses Not on filedocumented in this encounter"
--- OUTSIDE RECORDS SUMMARY | ~2019-09-27 | XMS | Encounter Summary ---
Demographics + + + | Address | [address] | | | [place] [address] | + + + | Home Phone [...] [place] | | | | | [address] | | + + + + + Care Team Providers + +------+ + | Care Industrial Arts Teacher Name | Role | Phone [...] 2018 | Visit | [facility] at [facility] [address] | MD [address] | surgery (Primary | | | | [address] | [facility] [place] [place] | Dx); S/P | | | | Mailcode: Center | [address] | laparoscopic sleeve | | | | for Health and | [phone] | gastrectomy | | | | Healing, Building [address] | | | | | | [place], [place] | | | | | | [address] | | | | | | [phone] | | | +--------+---------+ + + + [...] can be adjusted. Please visit with our Fibre Optic Cable Splicer (RD) for instructions about your Bariatric diet, assistance with calorie counts, tips and tricks for working with your diet restrictions, an d recipes after bariatric surgery. Daily yogurt; even just 1 tablespoon twice a day will provide enough probiotics to optimize digestion. Try to use a high-quality, probiotic-dense yogurt (eg Marielena's, [place], Lif eway Kefir, Healthcare Administrator Dom's Nepali Yogurt). Remember to chew your food well, [...] GILDARDO DOWNING MD. Division of Bariatric Surgery [facility] | [address] | [place], [place] | [address] | documented in this en counter Plan of Treatment +--------+---------+ + + + | Date | Type | Specialty | Care Team | Description | +--------+---------+ + + + | 10/05/ | Office | Surgery | Shu, | | | 2018 | Visit | | MD Bryson [address] | | | | | | [address] | | | | | | [place], [place] | | | | | | [address] | | | | | | [phone] | | | | | | | | +--------+---------+ + + + documented as of this encounter Visit Diagnoses + + | Diagnosis | + + | Aftercare following surgery - Primary Encounter for other specified aftercare | + + | S/P laparoscopic sleeve gastrectomy | + + documented in this encounter
--- OUTSIDE RECORDS SUMMARY | ~2019-09-27 | XMS | Encounter Summary ---
Demographics + + + | Address | [address] | | | [place] [address] | + + + | Home Phone [...] Team Providers + +------+ + | Care Personal Fitness Trainer Name | Role | Phone | + [...] | 2019 | Encounter | Center at [facility] [address] | AGACNP [address] | | | | | [address] | [place], [place] | | | | | Mailcode: Center | [address] | | | | | for Health and | [phone] | | | | | Healing, [address] | | | | | | [place], [place] | | | | | | [address] | | | | | | [phone] | | | +--------+ + + + [...] 2019 | Visit | | MD Bryson [address] | | | | | | [address] | | | | | | [place], [place] | | | | | | [address] | | | | | | [phone] | | | | | | | [...]
--- OUTSIDE RECORDS SUMMARY | ~2019-09-27 | XMS | Encounter Summary ---
Demographics + + + | Address | [address] | | | [place] [address] | + + + | Home Phone [...] [place] | | | | | [address] | | + + + + + Care Team Providers + +------+ + | Care Jerker Name | Role | Phone | + +------+ + | Aleshia Martinez PA-C | PCP | | + +------+ + Encounter Details +--------+ + + + + | Date | Type | Department | Care Team | Description | +--------+ + + + + | 06/23/ | Abstract | Digestive Health | Clinic, Surgery | | | 2017 | | [place] at [facility] [address] | | | | | | [address] | | | | | | Mailcode: [place] | | | | | | for Health and | | | | | | Healing, [address] | | | | | | [place], [place] | | | | | | [address] | | | | | | [phone] | | | +--------+ + + + [...] Rd | | | | | | [place] | | | | | | [address] | | | | | | [phone] | | | | | | | | +--------+---------+ + + + documented as of this encounter Visit Diagnoses Not on filedocumented in this encounter"
--- OUTSIDE RECORDS SUMMARY | ~2019-09-27 | XMS | Encounter Summary ---
Demographics + + + | Address | [address] | | | [place] [address] | + + + | Home Phone [...] [place] | | | | | [address] | | + + + + + Care Team Providers + +------+ + | Care Salon Coordinator Name | Role | Phone | [...] 2018 | on | [facility] at [facility] [address] | ACNP [address] | | | | | [address] | [place], [place] | | | | | Mailcode: Center | [address] | | | | | for Health and | [phone] | | | | | Healing, Building [address] | | | | | | [place], [place] | | | | | | [address] | | | | | | [phone] | | | +--------+ + + + [...] Rd | | | | | | [place], [place] | | | | | | [address] | | | | | | [phone] | | | | | | | | +--------+---------+ + + + documented as of this encounter Visit Diagnoses Not on filedocumented in this encounter"
--- OUTSIDE RECORDS SUMMARY | ~2019-09-27 | XMS | Encounter Summary ---
Demographics + + + | Address | [address] | | | [place] [address] | + + + | Home Phone [...] [place] | | | | | [address] | | + + + + + Care Team Providers + +------+ + | Care Textile Designer Name | Role | Phone | [...] | 2018 | Encounter | [facility] at [facility] [address] | | | | | | [address] | | | | | | Mailcode: Center | | | | | | for Health and | | | | | | Healing, [address] | | | | | | [place], [place] | | | | | | [address] | | | | | | [phone] | | | +--------+ + + + [...] Rd | | | | | | [place] | | | | | | [address] | | | | | | [phone] | | | | | | | | +--------+---------+ + + + documented as of this encounter Visit Diagnoses Not on filedocumented in this encounter"
--- OUTSIDE RECORDS SUMMARY | ~2019-09-27 | XMS | Encounter Summary ---
Demographics + + + | Address | [address] | | | [place] [address] | + + + | Home Phone [...] [place] | | | | | [address] | | + + + + + Care Team Providers + +------+ + | Care Chemical Treatment Plant Technician Name | Role | Phone | [...] | | | [address] | [place], [place] | | | | | Mailcode: Center | [address] | | | | | for Health and | [phone] | | | | | [address] [address] | | | | | | [place], [place] | | | | | | [address] | | | | | | [phone] | | | +--------+ + + + [...] Rd | | | | | | [place], [place] | | | | | | [address] | | | | | | [phone] | | | | | | | | +--------+---------+ + + + documented as of this encounter Visit Diagnoses [facility] on [facility]"
--- OUTSIDE RECORDS SUMMARY | ~2019-09-27 | XMS | Encounter Summary ---
Demographics + + + | Address | [address] | | | [place] [address] | + + + | Home Phone [...] [place] | | | | | [address] | | + + + + + Care Team Providers + +------+ + | Care Records Technician Name | Role | Phone | + +------+ + | Aleshia Martinez PA-C | PCP | | + +------+ + Encounter Details +--------+ + + + + | Date | Type | Department | Care Team | Description | +--------+ + + + + | 06/22/ | Telephone | Digestive Health | Gildardo Downing, | | | 2017 | | Center at [facility] [address] | [address] | | | | | [address] | [facility] [place] | | | | | Mailcode: Center | [address] | | | | | for Health and | [phone] | | | | | [facility], [address] | | | | | | | | | | | | [address] | | | | | | [phone] | | | +--------+ + + + [...] Rd | | | | | | [place] | | | | | | [address] | | | | | | [phone] | | | | | | | | +--------+---------+ + + + documented as of this encounter Visit Diagnoses Not on filedocumented in this encounter"
--- OUTSIDE RECORDS SUMMARY | ~2019-09-27 | XMS | Encounter Summary ---
Demographics + + + | Address | [address] | | | [place] [address] | + + + | Home Phone [...] [place] | | | | | [address] | | + + + + + Care Team Providers + +------+ + | Care Gas Meter Prover Name | Role | Phone | + +------+ + | No Pcp Per Patient | PCP | Unavailable | + +------+ + Encounter Details +--------+ + + + + | Date | Type | Department | Care Team | Description | +--------+ + + + + | 10/22/ | Abstract | Digestive Health | Clinic, Surgery | | | 2016 | | [place] at [facility] [address] | | | | | | [address] | | | | | | Mailcode: [place] | | | | | | [facility] and | | | | | | Healing, Building 2 | | | | | | [place], [place] | | | | | | [address] | | | | | | [phone] | | | +--------+ + + + [...] Rd | | | | | | [place], [place] | | | | | | [address] | | | | | | [phone] | | | | | | | | +--------+---------+ + + + documented as of this encounter Visit Diagnoses Not on filedocumented in this encounter"
--- OUTSIDE RECORDS SUMMARY | ~2019-09-27 | XMS | Encounter Summary ---
Demographics + + + | Address | [address] | | | [place] [address] | + + + | Home Phone [...] [place] | | | | | [address] | | + + + + + Care Team Providers + +------+ + | Care Garden Labourer Name | Role | Phone | + [...] To Surgery | | 2017 | | [place] at [facility] [address] | | - General | | | | [address] | | | | | | Mailcode: [place] | | | | | | for Health and | | | | | | [facility], Building 2 | | | | | | [place], [place] | | | | | | [address] | | | | | | [phone] | | | +--------+ + + + [...] [place] | | | | | | [address] | | | | | | [phone] | | | | | | | | +--------+---------+ + + + documented as of this encounter Visit Diagnoses Not on filedocumented in this encounter"
--- OUTSIDE RECORDS SUMMARY | ~2019-09-27 | XMS | Encounter Summary ---
Demographics + + + | Address | [address] | | | [place] [address] | + + + | Home Phone [...] [place] | | | | | [address] | | + + + + + Care Team Providers + +------+ + | Care Civil Engineering Director Name | Role | Phone | + +------+ + | Aleshia Martinez PA-C | PCP | | + +------+ + Encounter Details +--------+ + + + + | Date | Type | Department | Care Team | Description | +--------+ + + + + | 04/13/ | Abstract | Digestive Health | Clinic, Surgery | | | 2019 | | [place] at [facility] [address] | | | | | | [address] | | | | | | Mailcode: [place] | | | | | | for Health and | | | | | | Healing, Building 2 | | | | | | [place], [place] | | | | | | [address] | | | | | | [phone] | | | +--------+ + + + [...] Rd | | | | | | [place], [place] | | | | | | [address] | | | | | | [phone] | | | | | | | | +--------+---------+ + + + documented as of this encounter Visit Diagnoses Not on filedocumented in this encounter"
--- OUTSIDE RECORDS SUMMARY | ~2019-09-27 | XMS | Encounter Summary ---
Demographics + + + | Address | [address] | | | [place] [address] | + + + | Home Phone [...] [place] | | | | | [address] | | + + + + + Care Team Providers + +------+ + | Care Last Repairer Name | Role | Phone | [...] | 2017 | Encounter | Center at [facility] [address] | | denial | | | | [address] | | | | | | Mailcode: Center | | | | | | for Health and | | | | | | Healing, Building 2 | | | | | | [place], [place] | | | | | | [address] | | | | | | [phone] | | | +--------+ + + + [...] 2019 | Visit | | MD Bryson [address] | | | | | | [address] | | | | | | [place], [place] | | | | | | [address] | | | | | | [phone] | | | | | | | | +--------+---------+ + + + documented as of this encounter Visit Diagnoses Not on filedocumented in this encounter"
--- OUTSIDE RECORDS SUMMARY | ~2019-09-27 | XMS | Encounter Summary ---
Demographics + + + | Address | [address] | | | [place] [address] | + + + | Home Phone [...] [place] | | | | | [address] | | + + + + + Care Team Providers + +------+ + | Care Size Maker Name | Role | Phone | + +------+ + | Aleshia Martinez PA-C | PCP | | + +------+ + Encounter Details +--------+ + + + + | Date | Type | Department | Care Team | Description | +--------+ + + + + | 09/05/ | Telephone | Digestive Health | Gildardo Downing, | | | 2017 | | Center at [facility] [address] | [address] | | | | | [address] | [facility] [place] | | | | | Mailcode: Center | [address] | | | | | for Health and | [phone] | | | | | [facility], [address] 2 | | | | | | [place], [place] | | | | | | [address] | | | | | | [phone] | | | +--------+ + + + [...] Rd | | | | | | [place], [place] | | | | | | [address] | | | | | | [phone] | | | | | | | | +--------+---------+ + + + documented as of this encounter Visit Diagnoses Not on filedocumented in this encounter"
--- OUTSIDE RECORDS SUMMARY | ~2019-09-27 | XMS | Encounter Summary ---
Demographics + + + | Address | [address] | | | [place] [address] | + + + | Home Phone [...] [place] | | | | | [address] | | + + + + + Care Team Providers + +------+ + | Care Sr Solutions Consultant Name | Role | Phone | [...] | Visit | Center at [facility] [address] | | (Primary Dx) | | | | [address] | | | | | | Mailcode: Center | | | | | | for Health and | | | | | | Healing, Building 2 | | | | | | [place], [place] | | | | | | [address] | | | | | | [phone] | | | +--------+---------+ + + + [...] of Class: 1105 until 1225 (80 minutes [id number] with patient) Teaching Methods: PowerPoint and verbal [...] a journal with fluid/protein d. Transportation 7. [place] [facility] 8. Surgical [...] Rd | | | | | | [place], [place] | | | | | | [address] | | | | | | [phone] | | | | | | | | +--------+---------+ + + + documented as of this encounter Visit Diagnoses + + | Diagnosis | + + | Morbid obesity (HCC) - Primary Morbid obesity | + + documented in this encounter"
--- OUTSIDE RECORDS SUMMARY | ~2019-09-27 | XMS | Encounter Summary ---
Demographics + + + | Address | [address] | | | [place] [address] | + + + | Home Phone [...] [place] | | | | | [address] | | + + + + + Care Team Providers + +------+ + | Care Executive Vice President Name | Role | Phone | + [...] Rd | | | | | | [place] | | | | | | [address] | | | | | | [phone] | | | | | | | | +--------+---------+ + + + documented as of this encounter Visit Diagnoses Not on filedocumented in this encounter"
--- OUTSIDE RECORDS SUMMARY | ~2019-09-27 | XMS | Encounter Summary ---
Demographics + + + | Address | [address] | | | [place] [address] | + + + | Home Phone [...] [place] | | | | | [address] | | + + + + + Care Team Providers + +------+ + | Care Produce Associate Name | Role | Phone | [...] [place] | | | | | | [address] | | | | | | [phone] | | | | | | | | +--------+---------+ + + + documented as of this encounter Visit Diagnoses Not on filedocumented in this encounter"
--- OUTSIDE RECORDS SUMMARY | ~2019-09-27 | XMS | Encounter Summary ---
Demographics + + + | Address | [address] | | | [place] [address] | + + + | Home Phone [...] [place] | | | | | [address] | | + + + + + Care Team Providers + +------+ + | Care Executive Pastry Chef Name | Role | Phone | + [...] [place] | | | | | | [address] | | | | | | [phone] | | | | | | | | +--------+---------+ + + + documented as of this encounter Visit Diagnoses Not on filedocumented in this encounter"
--- OUTSIDE RECORDS SUMMARY | ~2019-09-27 | XMS | Encounter Summary ---
Demographics + + + | Address | [address] | | | [place] [address] | + + + | Home Phone [...] [place] | | | | | [address] | | + + + + + Care Team Providers + +------+ + | Care Lace Machine Operator Name | Role | Phone [...] Pharmacy | | | | | | [address] | | | | | | Jessica Sepulveda [place], | | | | | | [place] [address] | | | | | | [phone] | | | +--------+ + + + [...] [place] | | | | | | [address] | | | | | | [phone] | | | | | | | | +--------+---------+ + + + documented as of this encounter Visit Diagnoses Not on filedocumented in this encounter"
--- OUTSIDE RECORDS SUMMARY | ~2019-09-27 | XMS | Encounter Summary ---
Demographics + + + | Address | [address] | | | [place] [address] | + + + | Home Phone [...] [place] | | | | | [address] | | + + + + + Care Team Providers + +------+ + | Care Special Forces Communications Sergeant Name | Role | Phone | + [...] [address] | | | | | ([facility]) | [address] | Jessica Sepulveda | | | | | Procedures | [address] | Physician's | | | | | CONSULT TO | Jessica Sepulveda | [place], | | | | | HEALTH | [place], [place] | [address] | | | | | PROMOTION & | [address] | [place], [place] | | | | | SPORTS | | [address] | | | | | MEDICINE | | Phone: | | | | | PROVIDER | | [phone] | | | | | | | Fax: | | | | | | | [phone] | +--------+--------+ + + + + Consultation [...] | Bariatri Surg | | | with PODIATRIC SURGEON | | obesity | Ganesh Holden MD | [facility] [address] | | | | | ([facility]) | [address] | [address] | | | | | Procedures | [address] | Mailcode: | | | | | CONSULT TO | Jessica Sepulveda | Center for | | | | | BARIATRIC | [place], [place] | [facility] and | | | | | SURGERY | [address] | Healing, | | | | | | | Building 2 | | | | | | | [place], [place] | | | | | | | [address] | | | | | | | Phone: | | | | | | | [phone] | | | | | | | Fax: | | | | | | | [phone] | + + + + + + [...] | | | | hernia | | [address] | | | | | [...] | | | | | | | [facility] [place] | | | | | | | [address] | | | | | | | Phone: | | | | | | | [phone] | | | | | | | Fax: | | | | | | | [phone] | +--------+--------+ + + + + Encounter Details +--------+---------+ + + + | Date | Type | Department | Care Team | Description | +--------+---------+ + + + | 08/18/ | Office | Digestive Health | Es Bingham W, | Morbid obesity (HCC) | | 2017 | Visit | Center at [facility] [address] | MD [address] | (Primary Dx) | | | | [address] | [place], [place] | | | | | Mailcode: [place] | [address] | | | | | [facility] and | [phone] | | | | | Healing, Building 2 | | | | | | [place], [place] | | | | | | [address] | | | | | | [phone] | | | +--------+---------+ + + + [...] routine activity as tolerated. Es Bingham MD, [facility], FACS ES BINGHAM MD [facility] 6TH FLOOR [address] Mailcode: [facility] [place] [address] PATRAToSe cesar Pineda MD - 08/18/2017 12:30 PM PDTFormatting of this note might be different from the [facility] Department of Surgery Blue Surgery H&P Author: Ganesh Perez MD MIS Fellow 08/18/2017 12:25 PM ID: Sara Caballreo is a 32 y.o. female patient with [...] her risk of complications is 35% (per [employer] connie). She is interested to talk to [...] constipation -referral with bariatric program -referral to [facility] -RTC once she has lost weight The above findings and plan were discussed with Dr. Bingham, who agrees. Ganesh Perez MD Minimally Invasive Surgery Fellow [facility] [place] Pager [phone] documente d in this encounter Plan of Treatment +--------+---------+ + + + | Date | Type | Specialty | Care Team | Description | +--------+---------+ + + + | 10/05/ | Office | Surgery | Shu, | | | 2019 | Visit | | MD Bryson [address] | | | | | [address] | | | | | | [place], [place] | | | | | | [address] | | | | | | [phone] | | | | | | | | +--------+---------+ + + + documented as of this encounter Visit Diagnoses + + | Diagnosis | + + | Morbid obesity (HCC) - Primary Morbid obesity | + + documented in this encounter
--- OUTSIDE RECORDS SUMMARY | ~2019-09-27 | XMS | Encounter Summary ---
Demographics + + + | Address | [address] | | | [place] [address] | + + + | Home Phone [...] [place] | | | | | [address] | | + + + + + Care Team Providers + +------+ + | Care Vision Therapist Name | Role | Phone | [...] | 2018 | on | Center at [facility] [address] | ACNP [address] | | | | | [address] | [place], [place] | | | | | Mailcode: Center | [address] | | | | | for Health and | [phone] | | | | | Healing, Building 2 | | | | | | [place], [place] | | | | | | [address] | | | | | | [phone] | | | +--------+ + + + [...] | | | | | | [place], [place] | | | | | | [address] | | | | | | [phone] | | | | | | | | +--------+---------+ + + + documented as of this encounter Visit Diagnoses Not on filedocumented in this encounter"
--- OUTSIDE RECORDS SUMMARY | ~2019-09-27 | XMS | Encounter Summary ---
Demographics + + + | Address | [address] | | | [place] [address] | + + + | Home Phone [...] [place] | | | | | [address] | | + + + + + Care Team Providers + +------+ + | Care Archivist Military History Name | Role | Phone | + [...] | Center at [facility] [address] | MD [address] | | | | | [address] | [facility] [place] | | | | | Mailcode: [place] | [address] | | | | | for Health and | [phone] | | | | | [facility] 2 | | | | | | [place], [place] | | | | | | [address] | | | | | | [phone] | | | +--------+ + + + [...] Rd | | | | | | [place], [place] | | | | | | [address] | | | | | | [phone] | | | | | | | | +--------+---------+ + + + documented as of this encounter Visit Diagnoses Not on filedocumented in this encounter"
--- OUTSIDE RECORDS SUMMARY | ~2019-09-27 | XMS | Encounter Summary ---
Demographics + + + | Address | [address] | | | [place] [address] | + + + | Home Phone | | + + + | Preferred Language | Unknown | + + + | Marital Status | | + + + | Mu-Ism Affiliation | CHR | + + + [...] [place] | | | | | [address] | | + + + + + Care Team Providers + +------+ + | Care Retail Selling Floor Leader Name | Role | Phone | + [...] | | 2019 | | Center at [facility] [address] | MD [address] | | | | | [address] | [place], [place] | | | | | Mailcode: [place] | [address] | | | | | for Health and | | | | | | [facility] 2 | | | | | | [place], [place] | | | | | | [address] | | | | | | | [...] [place] | | | | | | [address] | | | | | | [phone] | | | | | | | | +--------+---------+ + + + documented as of this encounter Visit Diagnoses Not on filedocumented in this encounter"
--- OUTSIDE RECORDS SUMMARY | ~2019-09-27 | XMS | Encounter Summary ---
Demographics + + + | Address | [address] | | | [place] [address] | + + + | Home Phone [...] [place] | | | | | [address] | | + + + + + Care Team Providers + +------+ + | Care Separator Operator [employer] Name | Role | Phone | + [...] 2019 | Encounter | Center at [facility] [address] | MD [address] | follow up | | | | [address] | [place], [place] | appointment | | | | Mailcode: Center | [address] | | | | | for Health and | [phone] | | | | | Healing, Building 2 | | | | | | [place], [place] | | | | | | [address] | | | | | | [phone] | | | +--------+ + + + [...] 2019 | Visit | | MD Bryson [address] | | | | | | [address] | | | | | | [place], [place] | | | | | | [address] | | | | | | [phone] | | | | | | | | +--------+---------+ + + + documented as of this encounter Visit Diagnoses Not on filedocumented in this encounter"
--- OUTSIDE RECORDS SUMMARY | ~2019-09-27 | XMS | Encounter Summary ---
Demographics + + + | Address | [address] | | | [place] [address] | + + + | Home Phone [...] [place] | | | | | [address] | | + + + + + Care Team Providers + +------+ + | Care Environmental Science Technician Name | Role | Phone | [...] 09/22/ | Surgery | 6A Intra Op [facility] | Shu, | RECURRENT VENTRAL | | 2019 | | [facility] | MD Bryson [address] | HERNIA REPAIR AND | | | | Admitting Desk | [address] | EXCISION OF MESH | | | | Located on the | [place], [place] | | | | | floor [address] [facility] | [address] | | | | | [address] | [phone] | | | | | [place], [place] | | | | | | [address] | | | +--------+---------+ + + + [...] e different from the original. [facility] SURGERY TEAM INPATIENT DISCHARGE SUMMARY Author: Shayne Laguerre DNP AGACNP-BC Attending Physician: Bryson Ireland MD PCP: Aleshia Martinez PA-C Admission Date: 09/22/2019 Discharge Date: 09/25/2019 Diagnosis: Recurrent incarcerated incisional ventral hernia. Procedure: 1.Exploratory laparotomy. 2.Excision of prior hernia mesh [id number] pieces.2.5 hours spent exc ising mesh including [...] labs/studies: None Discharging Provider: Shayne Laguerre DNP [facility] Attending Physician: MD Shayne Mcdonough DNP [facility] Pager# [phone] 9:06 AM 09/25/2019 Vega colunga in this [...] hours by calling the surgery office at [phone]. After hours, weekends and holidays, you may call the hospital fuel yard operator at [phone] and have the commercial drone software developer Green Team for general surgery paged. Discharge [...] every 4-6 hours. Tylenol: You may use kgpk-pem-goytici (OTC) acetaminophen (Tylenol) for milder pain. Do [...] medications with Hydrocodone such as Vicodin or [place]. It is important to keep track of [...] out a dark red color and becomes escalator service mechanic and eventually a straw color. * Wash [...] removal. If you live ou t [facility], we will plan to talk with [...] Hilda Chua MD - 09/24/2019 6:38 AM [facility] Green Surgery Admission Date: 09/22/2019 ( LOS: [...] incarcerated incisional hernia s/p repair. -transition from BULL WHEEL WORKER to orals -continue drain. #low UOP -resolving, saline lock -remove stafford Dispo: likely 3 days total inpatient. HILDA CHUA MD General Surgery Hilda Kennedy MD - 09/23/2019 8:56 AM PSTDEPARTMENT OF [...] Incision c/d/i well approximated Drain: Serosanguinous Extremities: [facility] Data hypomag 1.7 Leukocytosis 15 Assessment and Plan: Sara Caballero is a 34 y.o. female admitted on 09/22/2019 for treatment of recurren t incarcerated ventral. Patient underwent excision of multiple prior meshes and retromuscula r repair with 20x10 cm piece of bard soft on 09/22. Patient is POD#1 feeling ok but with LOW and recent nausea. #Recurrent incarcerated incisional hernia s/p repair. -continue BULL WHEEL WORKER and stafford until tomorrow -continue drain. [...] 2018 | Visit | | MD Bryson [address] | | | | | | [facility] | | | | | | [place], [place] | | | | | | [address] | | | | | | [phone] | | | | | | | [...] | + + + + + | [facility] | [address] | [place] [address] | | | SERVICES, CORE | SHAHLA [...] + | [place] [facility] | [address] | [place] [address] | | | SERVICES, CORE | PARK [...] | | | LABORATORY | | | SUDANESE | | | SERVICES, | | | [...] MDRD equation recommended by the National | [facility] | | Kidney Disease Education Program. Estimated GFR Interpretive | LABORATORY | | Information: <60 mL/min/1.73 sq m Chronic Kidney | SERVICES, [facility] | | Disease <15 mL/min/1.73 sq m [...] | + + + + + | [facility] | [address] | [place] [address] | | | KUSH [place] | [address] | | | + [...] + + | C[facility]Y [place] | [address] | [place] [address] | | | K[place] | [address] | | | + [...] | | | POC | | | HILL, POINT | | [...] + + + + | [facility] | [address] | [place], [place] | | | HERO MCNEILL OF CARE | [facility] | [address] | | | TESTS | | | [...] ABDI | [address] | [place], [place] | | | HERO MCNEILL [facility] | [address] | [address] | | | TESTS | | | [...] | | | POC | | | [facility] | | | | | | HERO [...] [place] | [address] | [place], [place] | | | HERO MCNEILL OF CORBIN | [facility] | [address] | | | TESTS | | | [...] AM PST | | | | | Wed09/22/19 at 2100, Until | | | | [...]
--- OUTSIDE RECORDS SUMMARY | ~2019-09-27 | XMS | Encounter Summary ---
Demographics + + + | Address | [address] | | | [place] [address] | + + + | Home Phone [...] [place] | | | | | [address] | | + + + + + Care Team Providers + +------+ + | Care Glass Or Mirror Inspector Name | Role | Phone | [...] at [facility] [address] | ACNP [address] | Recommendations | | | | [address] | [place], [place] | | | | | Mailcode: [place] | [address] | | | | | [facility] and | [phone] | | | | | [place] [address] | | | | | | [place], [place] | | | | | | [address] | | | | | | [phone] | | | +--------+ + + + [...] 2019 | Visit | | MD Bryson [address] | | | | | | [address] | | | | | | [place], [place] | | | | | | [address] | | | | | | [phone] | | | | | | | | +--------+---------+ + + + documented as of this encounter Visit Diagnoses Not on filedocumented in this encounter"
--- OUTSIDE RECORDS SUMMARY | ~2019-09-27 | XMS | Encounter Summary ---
Demographics + + + | Address | [address] | | | [place] [address] | + + + | Home Phone [...] [place] | | | | | [address] | | + + + + + Care Team Providers + +------+ + | Care Senior Caregiver Name | Role | Phone | [...] Pharmacy | | | | | | [address] | | | | | | Jessica Sepulveda [place], | | | | | | [place] [address] | | | | | | [phone] | | | +--------+ + + + [...] Rd | | | | | | [place], [place] | | | | | | [address] | | | | | | [phone] | | | | | | | | +--------+---------+ + + + documented as of this encounter Visit Diagnoses Not on filedocumented in this encounter"
--- OUTSIDE RECORDS SUMMARY | ~2019-09-27 | XMS | Encounter Summary ---
Demographics + + + | Address | [address] | | | [place] [address] | + + + | Home Phone [...] [place] | | | | | [address] | | + + + + + Care Team Providers + +------+ + | Care Forest Fire Specialist Supervisor Name | Role | Phone | [...] RECURRENT VENTRAL | | 2019 | | [facility] | MD Bryson [address] | HERNIA REPAIR AND | | | | Admitting Desk | [address] | EXCISION OF MESH | | | | Located on the | [place], [place] | | | | | floor [address] [facility] [address] | [address] | | | | | [address] | [phone] | | | | | [place], [place] | | | | | | [address] | | | +--------+---------+ + + + [...] b e different from the original. [facility] [place] [facility]ERY TEAM INPATIENT DISCHARGE SUMMARY Author: Shayne Laguerre DNP AGACNP-BC Attending Physician: Bryson Ireland MD PCP: Aleshia Martinez PA-C Admission Date: 09/22/2019 Discharge Date: 09/25/2019 Diagnosis: Recurrent incarcerated incisional ventral hernia. Procedure: 1.Exploratory laparotomy. 2.Excision of prior hernia mesh [id number] pieces.2.5 hours spent exc ising mesh including [...] labs/studies: None Discharging Provider: Shayne Laguerre DNP [facility] Attending Physician: MD Shayne Mcdonough DNP [facility] Pager# [phone] 9:06 AM 09/25/2019 Vega colunga in this [...] hours by calling the surgery office at [phone]. After hours, weekends and holidays, you may call the hospital cold water machine operator at [phone] and have the industrial rehabilitation consultant Green Team for general surgery paged. Discharge [...] every 4-6 hours. Tylenol: You may use vgml-xth-erpsyos (OTC) acetaminophen (Tylenol) for milder pain. Do [...] medications with Hydrocodone such as Vicodin or [place]. It is important to keep track of [...] out a dark red color and becomes straddle truck driver and eventually a straw color. * Wash [...] removal. If you live ou t of [facility], we will plan to talk with your [...] Hilda Chua MD - 09/24/2019 6:38 AM [facility] Green Surgery Admission Date: 09/22/2019 ( LOS: [...] incarcerated incisional hernia s/p repair. -transition from TEST PILOT to orals -continue drain. #low UOP -resolving, [...] Incision c/d/i well approximated Drain: Serosanguinous Extremities: [facility] Data hypomag 1.7 Leukocytosis 15 Assessment and Plan: Sara Caballero is a 34 y.o. female admitted on 09/22/2019 for treatment of recurren t incarcerated ventral. Patient underwent excision of multiple prior meshes and retromuscula r repair with 20x10 cm piece of bard soft on 09/22. Patient is POD#1 feeling ok but with LOW and recent nausea. #Recurrent incarcerated incisional hernia s/p repair. -continue TEST PILOT and stafford until tomorrow -continue drain. #low [...] 2018 | Visit | | MD Bryson [address] | | | | | | [facility] | | | | | | [place], [place] | | | | | | [address] | | | | | | [phone] | | | | | | | [...] | + + + + + | [facility] | [address] | [place] [address] | | | SERVICES, CORE | SHAHLA [...] [place] [facility] | [address] | [place] [address] | | | SERVICES, CORE | PARK [...] | | | LABORATORY | | | MALIAN | | | SERVICES, | | | [...] MDRD equation recommended by the National | [facility] | | Kidney Disease Education Program. Estimated GFR Interpretive | LABORATORY | | Information: <60 mL/min/1.73 sq m Chronic Kidney | SERVICES, [facility] | | Disease <15 mL/min/1.73 sq m [...] | + + + + + | [facility] | [address] | [place] [address] | | | KUSH CORCORAN | PARK [...] CANDY WYATT | [address] | [place] [address] | | | KUSH CORCORAN | PARK [...] OMARAM | [address] | [place], [place] | | | HERO MCNEILL OF CARE | [facility] | [address] | | | TESTS | | | [...] ABDI | [address] | [place], [place] | | | HERO MCNEILL [facility] | [address] | [address] | | | TESTS | | | [...] MARQUAM | [address] | [place], [place] | | | HERO MCNEILL OF CORBIN | [facility] | [address] | | | TESTS | | | [...]
--- OUTSIDE RECORDS SUMMARY | ~2019-09-27 | XMS | Encounter Summary ---
Demographics + + + | Address | [address] | | | [place] [address] | + + + | Home Phone [...] [place] | | | | | [address] | | + + + + + Care Team Providers + +------+ + | Care Mailing Machine Operator Name | Role | Phone [...] | [facility] | | | with SOCIAL WELFARE CLERK | | obesity | Ganesh Holden MD | [facility] [address] | | | | | (HCC) | [address] | | | | | Procedures | [address] | Mailcode: | | | | | CONSULT TO | Jessica Sepulveda | [place] for | | | | | BARIATRIC | [place], [place] | Health and | | | | | SURGERY | [address] | Healing, | | | | | | | Building [address] | | | | | | | [place], [place] | | | | | | | [address] | | | | | | | Phone: | | | | | | | [phone] | | | | | | | Fax: | | | | | | | [phone] | + + + + + + + Encounter Details +--------+---------+ + + + | Date | Type | Department | Care Team | Description | +--------+---------+ + + + | 06/16/ | Office | Digestive Health | Gildardo Downing, | Morbid obesity with | | 2017 | Visit | Center at [facility] [address] | MD [address] | BMI of 40.0-44.9, | | | | [address] | [place], [place] | adult (HCC) (Primary | | | | Mailcode: Center | [address] | Dx); Essential | | | | for Health and | [phone] | hypertension; | | | | Healing, Building 2 | | Ventral hernia with | | | | [place], [place] | | obstruction and | | | | [address] | | without gangrene | | | | [phone] | | | +--------+---------+ + + + [...] 06/16/2018 9:20 AM PDTPlease visit with our [facility] Customer Order Clerk (RD) for instructions about your Bariatric diet, assistance with calorie c ounts, tips and tricks for working with your diet restrictions, and recipes after bariatric surgery. Daily yogurt; even just 1 tablespoon twice a day will provide enough probiotics to optimize digestion. Try to use a high-quality, probiotic-dense yogurt (eg Marielena's, Marcello, Enrico alberto Kefir, Cash Analyst Dom's Tajik Yogurt). Remember to chew your food well, [...] a 4-5% rate of reoperation over the tank terminal gauger (i.e. years), as well as other late [...] may approach 5%. We reviewed the [facility] consent form. We discussed that we did [...] 2018 | Visit | | MD Bryson [address] | | | | | | [address] | | | | | | [place], [place] | | | | | | [address] | | | | | | [phone] | | | | | | | [...]
--- OUTSIDE RECORDS SUMMARY | ~2019-09-27 | XMS | Encounter Summary ---
Demographics + + + | Address | [address] | | | [place] [address] | + + + | Home Phone [...] [place] | | | | | [address] | | + + + + + Care Team Providers + +------+ + | Care Balcony Worker Name | Role | Phone | [...] 2018 | Visit | Center at [facility] [address] | MD [address] | surgery (Primary | | | | [address] | [facility] [place] | Dx); S/P | | | | Mailcode: Center | [address] | laparoscopic sleeve | | | | for Health and | [phone] | gastrectomy | | | | Healing, Building [address] | | | | | | [place], [place] | | | | | | [address] | | | | | | [phone] | | | +--------+---------+ + + + [...] can be adjusted. Please visit with our Vocational Instructor (RD) for instructions about your Bariatric diet, assistance with calorie counts, tips and tricks for working with your diet restrictions, an d recipes after bariatric surgery. Daily yogurt; even just 1 tablespoon twice a day will provide enough probiotics to optimize digestion. Try to use a high-quality, probiotic-dense yogurt (eg Marielena's, [place], Lif eway Kefir, Hardscape Foreman Dom's Estonian Yogurt). Remember to chew your food well, [...] GILDARDO DOWNING MD. Division of Bariatric Surgery [facility] | [address] | [place], [place] | [address] | documented in this en counter Plan of Treatment +--------+---------+ + + + | Date | Type | Specialty | Care Team | Description | +--------+---------+ + + + | 10/05/ | Office | Surgery | Shu, | | | 2018 | Visit | | MD Bryson [address] | | | | | | [address] | | | | | | [place], [place] | | | | | | [address] | | | | | | [phone] | | | | | | | | +--------+---------+ + + + documented as of this encounter Visit Diagnoses + + | Diagnosis | + + | Aftercare following surgery - Primary Encounter for other specified aftercare | + + | S/P laparoscopic sleeve gastrectomy | + + documented in this encounter
--- OUTSIDE RECORDS SUMMARY | ~2019-09-27 | XMS | Encounter Summary ---
Demographics + + + | Address | [address] | | | [place] [address] | + + + | Home Phone [...] [place] | | | | | [address] | | + + + + + Care Team Providers + +------+ + | Care Career Center Director Name | Role | Phone | [...] | | | | | hernia | [address] | | | | | | Procedures | [address] | | | | | | CT ABDOMEN | Rd | | | | | | AND PELVIS | [place], [place] | | | | | | [place] | [address] | | | | | | CONTRAST | Phone: | | | | | | | [phone] | | | | | | | Fax: | | | | | | | [phone] | | + +--------+ + + + [...] Patient's Condition | | 2019 | | [place] [address] | MD Bryson [address] | Worsened | | | | [address] | [address] | | | | | Mailcode: [place] | [place], [place] | | | | | and | [address] | | | | | [facility] 2 | [phone] | | | | | [place], [place] | | | | | | [address] | | | | | | [phone] | | | +--------+ + + + [...] | | | | | | [place], [place] | | | | | | [address] | | | | | | [phone] | | | | | | | [...]
--- OUTSIDE RECORDS SUMMARY | ~2019-09-27 | XMS | Encounter Summary ---
Demographics + + + | Address | [address] | | | [place] [address] | + + + | Home Phone [...] [place] | | | | | [address] | | + + + + + Care Team Providers + +------+ + | Care Beef Pluck Trimmer Name | Role | Phone | [...] Pharmacy | | | | | | [address] | | | | | | Jessica Sepulveda [place], | | | | | | [place] [address] | | | | | | [phone] | | | +--------+ + + + [...] | | | | | | [place], [place] | | | | | | [address] | | | | | | [phone] | | | | | | | | +--------+---------+ + + + documented as of this encounter Visit Diagnoses Not on filedocumented in this encounter"
--- OUTSIDE RECORDS SUMMARY | ~2019-09-27 | XMS | Encounter Summary ---
Demographics + + + | Address | [address] | | | [place] [address] | + + + | Home Phone [...] [place] | | | | | [address] | | + + + + + Care Team Providers + +------+ + | Care Cabinet Builder Name | Role | Phone | + +------+ + | Aleshia Martinez PA-C | PCP | | + +------+ + Encounter Details +--------+ + + + + | Date | Type | Department | Care Team | Description | +--------+ + + + + | 01/28/ | Abstract | Digestive Health | Clinic, Surgery | | | 2017 | | [place] [facility] [address] | | | | | | [address] | | | | | | Mailcode: [place] | | | | | | for Health and | | | | | | Healing, Building [address] | | | | | | [place], [place] | | | | | | [address] | | | | | | [phone] | | | +--------+ + + + [...] Rd | | | | | | [place] | | | | | | [address] | | | | | | [phone] | | | | | | | | +--------+---------+ + + + documented as of this encounter Visit Diagnoses Not on filedocumented in this encounter"
--- OUTSIDE RECORDS SUMMARY | ~2019-09-27 | XMS | Encounter Summary ---
Demographics + + + | Address | [address] | | | [place] [address] | + + + | Home Phone [...] [place] | | | | | [address] | | + + + + + Care Team Providers + +------+ + | Care Curtain Framer Name | Role | Phone | + [...] Pharmacy | | | | | | [address] | | | | | | Jessica Sepulveda [place], | | | | | | [place] [address] | | | | | | [phone] | | | +--------+ + + + [...] Rd | | | | | | [place], [place] | | | | | | [address] | | | | | | [phone] | | | | | | | | +--------+---------+ + + + documented as of this encounter Visit Diagnoses Not on filedocumented in this encounter"
--- OUTSIDE RECORDS SUMMARY | ~2019-09-27 | XMS | Encounter Summary ---
Demographics + + + | Address | [address] | | | [place] [address] | + + + | Home Phone | | + + + | Preferred Language | Unknown | + + + | Marital Status | | + + + | Denominational Affiliation | CHR | + + + | Race | White | + + + | Ethnic Group | Not or | + + + Author + + + | Author | [facility] | + + + | Organization | [facility] | + + + | Address | Unknown | + + + | Phone | Unavailable | + + + Support + + + + + | Name | Relationship | Address | Phone | + + + + + | Stewart Corbett | ECON | [address] | | | | | [place] | | | | | [address] | | + + + + + Care Team Providers + +------+ + | Care Cancer Researcher Name | Role | Phone | + [...] | | 2016 | anned | Services [address] | | | | | | [address] | | | | | | Mailcode: OP17A | | | | | | [facility] | | | | | | [place], [place] | | | | | | [address] | | | | | | [phone] | | | +--------+ + + + [...] Rd | | | | | | [place], [place] | | | | | | [address] | | | | | | [phone] | | | | | | | [...]
--- OUTSIDE RECORDS SUMMARY | ~2019-09-27 | XMS | Encounter Summary ---
Demographics + + + | Address | [address] | | | [place] [address] | + + + | Home Phone [...] [place] | | | | | [address] | | + + + + + Care Team Providers + +------+ + | Care Hand Ornament Maker Name | Role | Phone | [...] | 2018 | on | Center at [facility] [address] | | | | | | [address] | | | | | | Mailcode: Center | | | | | | for Health and | | | | | | Healing, Building 2 | | | | | | [place], [place] | | | | | | [address] | | | | | | [phone] | | | +--------+ + + + [...] Rd | | | | | | [place], [place] | | | | | | [address] | | | | | | [phone] | | | | | | | | +--------+---------+ + + + documented as of this encounter Visit Diagnoses Not on filedocumented in this encounter"
--- OUTSIDE RECORDS SUMMARY | ~2019-09-27 | XMS | Encounter Summary ---
Demographics + + + | Address | [address] | | | [place] [address] | + + + | Home Phone [...] [place] | | | | | [address] | | + + + + + Care Team Providers + +------+ + | Care Flatwork Tier Name | Role | Phone | + [...] the | | 2019 | Encounter | [place] at [facility] [address] | MD Bryson [address] | hernia | | | | [address] | [address] | | | | | Mailcode: Center | [place], [place] | | | | | for Health and | [address] | | | | | [facility], Building 2 | [phone] | | | | | [place], [place] | | | | | | [address] | | | | | | [phone] | | | +--------+ + + + [...] Rd | | | | | | [place], [place] | | | | | | [address] | | | | | | [phone] | | | | | | | | +--------+---------+ + + + documented as of this encounter Visit Diagnoses Not on filedocumented in this encounter"
--- OUTSIDE RECORDS SUMMARY | ~2019-09-27 | XMS | Encounter Summary ---
Demographics + + + | Address | [address] | | | [place] [address] | + + + | Home Phone [...] [place] | | | | | [address] | | + + + + + Care Team Providers + +------+ + | Care Mutuel Department Manager Name | Role | Phone | [...] Rd | | | | | | [place] | | | | | | [address] | | | | | | [phone] | | | +--------+ + + + [...] Rd | | | | | | [place], [place] | | | | | | [address] | | | | | | [phone] | | | | | | | [...] [facility] | [address] | [place] [address] | | | SERVICES, CORE | PARK [...] | + + + + + | [facility] | [address] | [place] [address] | | | SERVICES, CORE | SHAHLA [...] + + + | [facility] | [address] | [place] [address] | | | SERVICES, CORE | [address] | | | + + + + + documented in this encounter Visit Diagnoses Not on filedocumented in this encounter"
--- OUTSIDE RECORDS SUMMARY | ~2019-09-27 | XMS | Encounter Summary ---
Demographics + + + | Address | [address] | | | [place] [address] | + + + | Home Phone [...] [place] | | | | | [address] | | + + + + + Care Team Providers + +------+ + | Care All Round Butcher Name | Role | Phone | + [...] | hernia with | MD Yann | [address] | | | | | obstruction | [address] | [address] | | | | | and without | [address] | Rd [place], | | | | | gangrene | Rd | [place] | | | | | Procedures | [place], [place] | [address] | | | | | REQUEST TO | [address] | Phone: | | | | | SURGERY | Phone: | [phone] | | | | | BROADCAST MAINTENANCE TECHNICIAN | [phone] | Fax: | | | | | [employer] | Fax: | [phone] | | | | | ARIES ABISAICIARA | [phone] | | | | | | CO [...] with | | 2019 | Visit | [place] [address] | MD Yann [address] | obstruction and | | | | [address] | [address] | without gangrene | | | | Mailcode: [place] | [place], [place] | (Primary Dx) | | | | for Health and | [address] | | | | | [facility] 2 | [phone] | | | | | [facility] [place] | | | | | | [address] | | | | | | [phone] | | | +--------+---------+ + + + [...] - 07/06/2019 9:50 AM PDTPATIENT SURGERY INFORMATION [facility] General Surgery Office Toll-free: ext [phone] Surgery Date: Sunday, September 22, [address]: Main [facility] Procedure: recurrent ventral hernia repair, [...] ease call the General Surgery Office at [phone] for [id number]. Check-in on the day of surgery is at the Admitting Department located on the 9th floor of [facility]. DIET Nothing to eat or drink [...] the surgery. Please see the list below, [facility] has a list of products that contain [...] contact our office . Products Containing Aspirin Ca-[place], Anacin, Anexsia with Codeine, Andynos, Aspirin, Aspirin suppositories, Ascrip tin, Aspergum, Axotal, B-A-C, Baby Aspirin, Nader, BC Powder, Bexophene, Buffaprin, Bufferin , Buffinol, Cama-Arthritis Strength, Congespirin, Hall[place], Coricidin, Damason, Darvon, Dristan, Rosetta-Gesic, Digel, Dolprin #3 Tablets, Donatab, Doxaphene, Duragesic, Easprin, Ecotrin, Emag rin Forte, Emiprin, Emprazil, Equagesic, Equazine M, Excedrin, Fiogesic, Fiorgen PH, Fiorice t, Fiorinal, 4-Way Cold Tablet, Gemnisyn, Indocin, Liquprin, Lortab ASA, Magnaprin, Marnal, Meprobamate, Midol, Momentum, Norgesic, [place], Orphengesic, Pabalate, P-A-C, Percodan, Pre salin, Robaxasil, Roxiprin, Saleto, Salocol, SK-65 Compound, Sine-Aid, Sine-Off, Timberon, Supac, Talwin Compound, Trigesic, Tolectin, Traiminicin, Vanquish, [...] Vitamin E, Gingko Biloba, Marine Fatty Acids, Acme-3 Fish Oil Supplement PRE-OP BATHING/SHOWER INSTRUCTIONS with [facility] Bathe or shower the evening before [...] loss of tissue. Check out the free [place] Quit Line - The Quit Line is open 24 hours a day, seven days a we ek. The Quit Line is a telephone and web-based counseling service to help [place]ians quit us ing tobacco and nicotine products. .QUIT.NOW ( ) or www.quitnow.net/[place] PARKING Parking at the Hospital for patients and visitors is available in the [facility] IRIS-RFID Price Squid tructure located across from the emergency department. Patient parking is available on level 1 and 3. Metered parking is available on the top level. Parking at [facility] is available in the building's parking structure. For additional parking options visit www.[facility]. TRANSPORTATION You will require transportation home on the day of discharge. Pain medications and physical activity restrictions may limit your ability to drive safely. CANCELLING YOUR PROCEDURE Please notify the general surgery office at [phone] as soon as possible should you nee [...] s/p laparoscopic sleeve gastrectomy (08/31/[address] Dowinng - has lost 70+ l bs since surgery). Other surgical history is notable for diagnostic laparoscopy (2009), lapa roscopic salpingectomy (2012) and umbilical hernia repair with mesh (2014 - op note unavaila ble). She now has a recurrence of her umbilical hernia and has been referred here to discuss repair. Her prior surgeries were performed in [place], [place] with Dr. Arthur Kuo. She repor [...] a non-smoker. 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 Can walk greater than 10 blocks, very active with her work . Past Surgical History Procedure Laterality Date Diagnostic laparoscopy 2009 Fallopian tube transection 2012 Ventral hernia repair with mesh 2013 Laparoscopic sleeve gastrectomy 08/31/[address] [facility] [address] Downing Past Medical History: Diagnosis Date [...] file Gets together: Not on file Attends bahai service: Not on file Active member of [...] to inguinal hernia repair. YANN IRELAND MD [facility] [address] [facility] Mailcode: [place] [address] documented in this encounter Plan of Treatment +--------+---------+ + + + | Date | Type | Specialty | Care Team | Description | +--------+---------+ + + + | 10/05/ | Office | Surgery | Shu, | | | 2018 | Visit | | MD Yann [address] | | | | | [address] | | | | | | [place], [place] | | | | | | [address] | | | | | | [phone] | | | | | | | | +--------+---------+ + + + documented as of this encounter Visit Diagnoses + + | Diagnosis | + + | Ventral hernia with obstruction and without gangrene - Primary Ventral hernia, | | unspecified, with obstruction | + + documented in this encounter
--- OUTSIDE RECORDS SUMMARY | ~2019-09-27 | XMS | Encounter Summary ---
Demographics + + + | Address | [address] | | | [place] [address] | + + + | Home Phone [...] [place] | | | | | [address] | | + + + + + Care Team Providers + +------+ + | Care Public Information Coordinator Name | Role | Phone | [...] | | 2018 | | Center at [facility] [address] | MD [address] | sided near | | | | [address] | [place], [place] | incision) | | | | Mailcode: Center | [address] | | | | | for Health and | [phone] | | | | | [facility] 2 | | | | | | [place], [place] | | | | | | [address] | | | | | | [phone] | | | +--------+ + + + [...] [place] | | | | | | [address] | | | | | | [phone] | | | | | | | | +--------+---------+ + + + documented as of this encounter Visit Diagnoses Not on filedocumented in this encounter"
--- OUTSIDE RECORDS SUMMARY | ~2019-09-27 | XMS | Encounter Summary ---
Demographics + + + | Address | [address] | | | [place] [address] | + + + | Home Phone [...] [place] | | | | | [address] | | + + + + + Care Team Providers + +------+ + | Care Assistant Education Director Name | Role | Phone | [...] 09/22/ | Anesthesia | 6A Intra Op [facility] | Rafi Askew, | | | 2019 | Event | [facility] | MD [address] [facility] | | | | | Admitting Desk | [facility] | | | | | Located on the 9 | [place], [place] | | | | | [facility] [address] [facility] [address] [facility] | [address] | | | | | [facility] [address] | [phone] | | | | | [place], [place] | | | | | | [address] | Austen Wilkinson, | | | | | | SOUND DESIGNER [address] [facility] | | | | | | [facility] | | | | | | [place], [place] | | | | | | [address] | | | | | | [phone] | | | | | | | | +--------+ + + + + Anesthesia Record + + + + + | Procedure Name | Responsible | Anesthesia Start | Anesthesia Stop Time | | | Anesthesiologist | Time | | + + + + + | RECURRENT VENTRAL | Rafi Askew MD | 09/22/19 1158 | 09/22/19 6795 | | HERNIA REPAIR AND | | [...] | | Oral; Cuffed; 09/22/19; 1544 | SOUND DESIGNER | SOUND DESIGNER | +--------+ + + + documented in [...] Rd | | | | | | [place], [place] | | | | | | [address] | | | | | | [phone] | | | | | | | [...] 4:00 | | | | | Starting Wed09/22/19 at 1331, | | PM PST | [...] mg | New Bag | 09/22/20 | 200 mg | | | | [...] | mcg/kg/m | | | | Starting Wed09/22/19 at 1232, | | PM PST | in | | | | Until Wed09/22/19 at [...]
--- OUTSIDE RECORDS SUMMARY | ~2019-09-27 | XMS | Encounter Summary ---
Demographics + + + | Address | [address] | | | [place] [address] | + + + | Home Phone [...] [place] | | | | | [address] | | + + + + + Care Team Providers + +------+ + | Care Roofing Layer Name | Role | Phone | [...] | 2018 | Encounter | Center at [facility] [address] | [address] | am | | | | [address] | Jessica [address]ved[address] [place], | | | | | Mailcode: Center | [place] [address] | | | | | for Health and | | | | | | Healing, [facility] 2 | | | | | | [place], [place] | | | | | | [address] | | | | | | [phone] | | | +--------+ + + + [...] 2019 | Visit | | MD Bryson [address] | | | | | | [address] | | | | | | [place], [place] | | | | | | [address] | | | | | | [phone] | | | | | | | | +--------+---------+ + + + documented as of this encounter Visit Diagnoses Not on filedocumented in this encounter"
--- OUTSIDE RECORDS SUMMARY | ~2019-09-27 | XMS | Encounter Summary ---
Demographics + + + | Address | [address] | | | [place] [address] | + + + | Home Phone [...] [place] | | | | | [address] | | + + + + + Care Team Providers + +------+ + | Care Marketing Representative Name | Role | Phone | + +------+ + | Aleshia Martinez PA-C | PCP | | + +------+ + Encounter Details +--------+ + + + + | Date | Type | Department | Care Team | Description | +--------+ + + + + | 07/01/ | Telephone | Digestive Health | Gildardo Downing, | | | 2017 | | Center at [facility] [address] | [address] | | | | | [address] | [facility] [place] | | | | | Mailcode: Center | [address] | | | | | for Health and | [phone] | | | | | [facility], Building 2 | | | | | | [place], [place] | | | | | | [address] | | | | | | [phone] | | | +--------+ + + + [...] Rd | | | | | | [place] | | | | | | [address] | | | | | | [phone] | | | | | | | | +--------+---------+ + + + documented as of this encounter Visit Diagnoses Not on filedocumented in this encounter"
--- OUTSIDE RECORDS SUMMARY | ~2019-09-27 | XMS | Encounter Summary ---
Demographics + + + | Address | [address] | | | [place] [address] | + + + | Home Phone [...] [place] | | | | | [address] | | + + + + + Care Team Providers + +------+ + | Care Reactor Fueling Supervisor Name | Role | Phone | + +------+ + | Aleshia Martinez PA-C | PCP | | + +------+ + Encounter Details +--------+------+ + + + | Date | Type | Department | Care Team | Description | +--------+------+ + + + | 01/06/ | Lab | Laboratory at [facility] | | Morbid obesity with | | 2017 | | [address] | | BMI of 40.0-44.9, | | | | [place], [place] | | adult (HCC); | | | | [address] | | Borderline diabetes; | | | | [phone] | | Essential | | | | [...] 2019 | Visit | | MD Bryson [address] | | | | | | [address] | | | | | | [place], [place] | | | | | | [address] | | | | | | [phone] | | | | | | | [...] | + + + + + | [facility] [employer] [facility] | [address] | [place] [address] | | | SERVICES, CORE | SHAHLA [...] | + + + + + | [facility] | [address] | [place] [address] | | | SERVICES, CORE | SHAHLA [...] (H)Comment: Hgb A1C | <5.7 % | [facility] | | | A1C | Interpretive | [...] | [facility] | | considered for monitoring nursing home glycemic control in patients with: | LABORATORY [...] | + + + + + | [facility] | [address] | [place] [address] | | | SERVICES, SPECIAL | SHAHLA [...] INTERPRETIVE | 70 - 180 nmol/L | [facility] | | | WHOLE | INFORMATION: Vitamin [...] | | | | | determined by [facility] | | | | | | Laboratories. See | | | | | | Compliance Statement B: | | | | | | [employer]/CSPerformed | | | | | | by [employer] | | | | | | [address] [facility] | | | | | | [address] | | | | | | [phone].[employer]. | | | | | | comGerardo MD, | | | | | | [...] [facility] | [address] | [place], [place] | | | [facility] | | [address] | | + + + + + [...] | + + + + + | [facility] | [address] | [place] [address] | | | SERVICES, CORE | SHAHLA [...] + + | [facility] | [address] [facility] [address] | [place] [address] | | | SERVICES, CORE | PARK [...] [facility] | [address] | [place] [address] | | | SERVICES, CORE | SHAHLA [...] [facility] | [address] | [place] [address] | | | SERVICES, CORE | PARK [...] [facility] | [address] | [place] [address] | | | NILO, KUSH | SHAHLA [...] [facility] | [address] | [place] [address] | | | SERVICES, CORE | PARK [...] | + + + + + | [facility] | [address] | [place] [address] | | | KUSH CORCORAN | SHAHLA [...]
--- OUTSIDE RECORDS SUMMARY | ~2019-09-27 | XMS | Encounter Summary ---
Demographics + + + | Address | [address] | | | [place] [address] | + + + | Home Phone [...] [place] | | | | | [address] | | + + + + + Care Team Providers + +------+ + | Care Senior Staff Accountant Name | Role | Phone | + [...] Pharmacy | | | | | | [address] | | | | | | Jessica Sepulveda [place], | | | | | | [place] [address] | | | | | | [phone] | | | +--------+ + + + [...] [place] | | | | | | [address] | | | | | | [phone] | | | | | | | | +--------+---------+ + + + documented as of this encounter Visit Diagnoses Not on filedocumented in this encounter"
--- OUTSIDE RECORDS SUMMARY | ~2019-09-27 | XMS | Encounter Summary ---
Demographics + + + | Address | [address] | | | [place] [address] | + + + | Home Phone [...] [place] | | | | | [address] | | + + + + + Care Team Providers + +------+ + | Care Sternman Name | Role | Phone | + [...] [address] | | | | | ([facility]) | [address] | [address] | | | | | Procedures | [address] | Physician's | | | | | CONSULT TO | Jessica Sepulveda | [place], | | | | | HEALTH | [place], [place] | [address] | | | | | PROMOTION & | [address] | [place], [place] | | | | | SPORTS | | [address] | | | | | MEDICINE | | Phone: | | | | | PROVIDER | | [phone] | | | | | | | Fax: | | | | | | | [phone] | +--------+--------+ + + + + Consultation [...] | Bariatri Surg | | | with NOCTURNIST | | obesity | Ganesh Holden MD | Ch[facility]2 [address] | | | | | ([facility]) | [address] | [address] | | | | | Procedures | [address] | Mailcode: | | | | | CONSULT TO | Jessica Sepulveda | Center for | | | | | BARIATRIC | [place], [place] | [facility] and | | | | | SURGERY | [address] | Healing, | | | | | | | Building 2 | | | | | | | [place], [place] | | | | | | | [address] | | | | | | | Phone: | | | | | | | [phone] | | | | | | | Fax: | | | | | | | [phone] | + + + + + + [...] | | | | hernia | | [address] | | | | | [...] | | | | | | | [facility] [place] | | | | | | | [address] | | | | | | | Phone: | | | | | | | [phone] | | | | | | | Fax: | | | | | | | [phone] | +--------+--------+ + + + + Encounter [...] | | | [address] | [place], [place] | | | | | Mailcode: [place] | [address] | | | | | [facility] and | [phone] | | | | | Healing, Building 2 | | | | | | [place], [place] | | | | | | [address] | | | | | | [phone] | | | +--------+---------+ + + + [...] routine activity as tolerated. Es Bingham MD, [facility], FACS ES BINGHAM MD [facility] 6TH FLOOR [address] Mailcode: [place] [address] PATRAToSe cesar Pineda MD - 08/18/2017 12:30 PM PDTFormatting of this note might be different from the [facility] Department of Surgery Blue Surgery [...] her risk of complications is 35% (per [employer] connie). She is interested to talk to [...] constipation -referral with bariatric program -referral to animal caretaker -RTC once she has lost weight The above findings and plan were discussed with Dr. Bingham, who agrees. Ganesh Perez MD Minimally Invasive Surgery Fellow [facility] [place] Pager [phone] documente d in this encounter Plan of Treatment +--------+---------+ + + + | Date | Type | Specialty | Care Team | Description | +--------+---------+ + + + | 10/05/ | Office | Surgery | Shu, | | | 2019 | Visit | | MD Bryson [address] | | | | | [address] | | | | | | [place], [place] | | | | | | [address] | | | | | | [phone] | | | | | | | | +--------+---------+ + + + documented as of this encounter Visit Diagnoses + + | Diagnosis | + + | Morbid obesity (HCC) - Primary Morbid obesity | + + documented in this encounter
--- OUTSIDE RECORDS SUMMARY | ~2019-09-27 | XMS | Encounter Summary ---
Demographics + + + | Address | [address] | | | [place] [address] | + + + | Home Phone [...] [place] | | | | | [address] | | + + + + + Care Team Providers + +------+ + | Care Analytics Architect Name | Role | Phone | + +------+ + | Aleshia Martinez PA-C | PCP | | + +------+ + Encounter Details +--------+ + + + + | Date | Type | Department | Care Team | Description | +--------+ + + + + | 08/31/ | Procedure | 6A Intra Op [facility] | | | | 2018 | Pass | [facility] | | | | | | Admitting Desk | | | | | | Located on the 9th | | | | | | floor [address] [facility] | | | | | | [address] | | | | | | [place], [place] | | | | | | [address] | | | +--------+ + + + [...] Rd | | | | | | [place], [place] | | | | | | [address] | | | | | | [phone] | | | | | | | | +--------+---------+ + + + documented as of this encounter Visit Diagnoses Not on filedocumented in this encounter"
--- OUTSIDE RECORDS SUMMARY | ~2019-09-27 | XMS | Encounter Summary ---
Demographics + + + | Address | [address] | | | [place] [address] | + + + | Home Phone [...] [place] | | | | | [address] | | + + + + + Care Team Providers + +------+ + | Care Assessment Clinician Name | Role | Phone | + [...] | Pain | Diagnoses | Clarke, | Psychiatric Specialist Psych | | | | Management | Morbid | Yumiko, ACNP | Ch[facility] [address] | | | | | obesity with | [address] | | | | | BMI of | [address] | Mailcode: | | | | | 40.0-44.9, | [place], [place] | 15 Center | | | | | adult (HCC) | [address] | for Health | | | | | Borderline | Phone: | and Healing, | | | | | diabetes | [phone] | Building 1, | | | | | Essential | Fax: | 15th Floor | | | | | hypertension | [phone] | [place], [place] | | | | | Mild | | [address] | | | | | intermittent | | Phone: | | | | | asthma | | [phone] | | | | | without | | Fax: | | | | | complication | | [phone] | | | | | Anxiety | [...] 04/20/ | Office | [facility] | Dylan Abraham, | Morbid obesity with | | 2017 | Visit | 15 [address] | PhD [address] | BMI of 40.0-44.9, | | | | [address] Mailcode: | Ave [place], [place] | adult ([facility]) (Primary | | | | [facility] Center for | [address] | Dx); Generalized | | | | Health and Healing, | [phone] | anxiety disorder; | | | | Building | | Borderline diabetes; | | | | Floor [place], [place] | | Major depressive | | | | [address] | | disorder, recurrent, | | | | [phone] | | in partial | | | | | | remission ([facility]); | | | | | | Essential [...] Name: Sara Caballero : 1985 Medical Record: [id number] Age:32 y.o. Weight: 278 lbs BMI: 44 Identifying Information: Sara Caballero is a 32 y.o. female who lives with her emily band, and her cousin and the cousin's 4 children in [place], [place]. She was referred for psy chological [...] yle. 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 For enjoyment the patient does craft s, [...] to improve her consistency with following the golf starter and ranger's recommendations, especially eating more consistently throughout the day. 4. She should continue her current walking and pool exercise routines. 5. She is urged to participate in a Bariatric Surgery Support Group. Total time I spent was approximately 50 minutes mahy-xr-oqmz with the patient and approxima tely 1 hour 50 minutes of gub-xwpf-rd-face testing, interpreting and synthesizing results. Dylan Abraham, PhD [facility] 15TH FLOOR [address] [facility] Mail Code: [address] [address] documented in this en counter [...] Rd | | | | | | [place], [place] | | | | | | [address] | | | | | | [phone] | | | | | | | [...]
--- OUTSIDE RECORDS SUMMARY | ~2019-09-27 | XMS | Encounter Summary ---
Demographics + + + | Address | [address] | | | [place] [address] | + + + | Home Phone [...] [place] | | | | | [address] | | + + + + + Care Team Providers + +------+ + | Care Housing Management Officer Name | Role | Phone | [...] | | 2019 | | Center at [facility] [address] | AGACNP [address] | Received | | | | [address] | [place], [place] | | | | | Mailcode: Center | [address] | | | | | for Health and | [phone] | | | | | [facility] 2 | | | | | | [place], [place] | | | | | | [address] | | | | | | [phone] | | | +--------+ + + + [...] [place] | | | | | | [address] | | | | | | [phone] | | | | | | | | +--------+---------+ + + + documented as of this encounter Visit Diagnoses Not on filedocumented in this encounter"
--- OUTSIDE RECORDS SUMMARY | ~2019-09-27 | XMS | Encounter Summary ---
Demographics + + + | Address | [address] | | | [place] [address] | + + + | Home Phone [...] [place] | | | | | [address] | | + + + + + Care Team Providers + +------+ + | Care Airplane Technician Name | Role | Phone | [...] | | 2018 | | Center at [facility] [address] | MD [address] | scheduling, possible | | | | [address] | [place], [place] | GERD symptoms) | | | | Mailcode: [place] | [address] | | | | | for Health and | | | | | | [facility] 2 | | | | | | [place], [place] | | | | | | [address] | | | | | | | [...] Rd | | | | | | [place], [place] | | | | | | [address] | | | | | | [phone] | | | | | | | | +--------+---------+ + + + documented as of this encounter Visit Diagnoses Not on filedocumented in this encounter"
--- OUTSIDE RECORDS SUMMARY | ~2019-09-27 | XMS | Encounter Summary ---
Demographics + + + | Address | [address] | | | [place] [address] | + + + | Home Phone [...] [place] | | | | | [address] | | + + + + + Care Team Providers + +------+ + | Care System Analyst Name | Role | Phone | [...] | Center at H2 [address] | MD [address] | | | | | [address] | [place], [place] | | | | | Mailcode: Center | [address] | | | | | for Health and | | | | | | [facility] 2 | | | | | | [place], [place] | | | | | | [address] | | | | | | | [...] Rd | | | | | | [place], [place] | | | | | | [address] | | | | | | [phone] | | | | | | | | +--------+---------+ + + + documented as of this encounter Visit Diagnoses Not on filedocumented in this encounter"
--- OUTSIDE RECORDS SUMMARY | ~2019-09-27 | XMS | Encounter Summary ---
Demographics + + + | Address | [address] | | | [place] [address] | + + + | Home Phone [...] [place] | | | | | [address] | | + + + + + Care Team Providers + +------+ + | Care Photographic Reproduction Technician Name | Role | Phone | [...] | Center at [facility] 3485 | MD [address] | | | | | [address] | [facility] [place] | | | | | Mailcode: [place] | [address] | | | | | for Health and | [phone] | | | | | [facility] 2 | | | | | | [place], [place] | | | | | | [address] | | | | | | [phone] | | | +--------+ + + + [...] Rd | | | | | | [place], [place] | | | | | | [address] | | | | | | [phone] | | | | | | | | +--------+---------+ + + + documented as of this encounter Visit Diagnoses Not on filedocumented in this encounter"
--- OUTSIDE RECORDS SUMMARY | ~2019-09-27 | XMS | Encounter Summary ---
Demographics + + + | Address | [address] | | | [place] [address] | + + + | Home Phone [...] [place] | | | | | [address] | | + + + + + Care Team Providers + +------+ + | Care Spray Machine Loader Name | Role | Phone | + [...] | Center at [facility] [address] | | insurance plan for | | | | [address] | | surgery | | | | Mailcode: Center | | | | | | for Health and | | | | | | Healing, Building 2 | | | | | | [place], [place] | | | | | | [address] | | | | | | [phone] | | | +--------+ + + + [...] Rd | | | | | | [place], [place] | | | | | | [address] | | | | | | [phone] | | | | | | | | +--------+---------+ + + + documented as of this encounter Visit Diagnoses Not on filedocumented in this encounter"
--- OUTSIDE RECORDS SUMMARY | ~2019-09-27 | XMS | Encounter Summary ---
Demographics + + + | Address | [address] | | | [place] [address] | + + + | Home Phone [...] [place] | | | | | [address] | | + + + + + Care Team Providers + +------+ + | Care Mining And Quarrying Machinery Repairer Name | Role | Phone | [...] | 2017 | Encounter | Center at [facility] [address] | | denial | | | | [address] | | | | | | Mailcode: Center | | | | | | for Health and | | | | | | Healing, Building 2 | | | | | | [place], [place] | | | | | | [address] | | | | | | [phone] | | | +--------+ + + + [...] 2019 | Visit | | MD Bryson [address] | | | | | | [address] | | | | | | [place], [place] | | | | | | [address] | | | | | | [phone] | | | | | | | | +--------+---------+ + + + documented as of this encounter Visit Diagnoses Not on filedocumented in this encounter"
--- OUTSIDE RECORDS SUMMARY | ~2019-09-27 | XMS | Encounter Summary ---
Demographics + + + | Address | [address] | | | [place] [address] | + + + | Home Phone [...] Team Providers + +------+ + | Care Lamp Replacer Name | Role | Phone | + [...] | | | or gangrene | | [place] for | | | | | | | Health and | | | | | | | Healing, | | | | | | | Building 2 | | | | | | | [place], [place] | | | | | | | [address] | | | | | | | Phone: | | | | | | | [phone] | | | | | | | Fax: | | | | | | | [phone] | + +--------+ + + + + Encounter Details +--------+---------+ + + + | Date | Type | Department | Care Team | Description | +--------+---------+ + + + | 01/06/ | Office | Digestive Health | Chetna Alves, RD | Morbid obesity with | | 2018 | Visit | Center at [facility] [address] | [address] | BMI of 40.0-44.9, | | | | [address] | [address] [place], | adult (HCC) (Primary | | | | Mailcode: Center | [place] [address] | Dx); Ventral hernia | | | | for Health and | | with obstruction | | | | Healing, Building 2 | | and without | | | | [place], [place] | | gangrene; Borderline | | | | [address] | | diabetes | | | | [phone] | | | +--------+---------+ + + + [...] of Visit: 3:10 until 4:00 (50 minutes cuvb-ko-clrl with patient) SUBJECTIVE: Pt comes in alone from [facility]. Patient viewed online seminar prior to [...] or dr ink water. Has been doing [employer]. Says she is alone a lot. 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 4. Call or send [employer] message to dietitian with any questions. Contact information was provided. Follow up with dietitian 1-2 weeks after surgery at first post-op visit. [address] Alves RD, [facility], [place] [facility] Bariatrics [phone] documented in this enco unter Plan of Treatment +--------+---------+ + + + | Date | Type | Specialty | Care Team | Description | +--------+---------+ + + + | 10/05/ Office | Surgery | Shu, | | | 2018 | Visit | | MD Bryson [address] | | | | | | [address] | | | | | | [place], [place] | | | | | | [address] | | | | | | [phone] | | | | | | | | +--------+---------+ + + + documented as of this encounter Procedures + +--------+ + + + | Procedure Name | Priori | Date/Time | Associated Diagnosis | Comments | | | ty | | | | + +--------+ + + + | TX MNT INITIAL | Routin | 01/07/2018 | Ventral hernia | | | ASSESSMNT X15MIN | e | 7:51 AM | with obstruction and | | | | | PDT | without gangrene | | | | | | Morbid obesity with | | | | | | BMI of 40.0-44.9, | | | | | | adult ([facility]) | | | | | | Borderline diabetes | | + +--------+ + + + documented in this encounter Visit Diagnoses + + | Diagnosis | + + | Morbid obesity with BMI of 40.0-44.9, adult ([facility]) - Primary | + + | 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
--- OUTSIDE RECORDS SUMMARY | ~2019-09-27 | XMS | Encounter Summary ---
Demographics + + + | Address | [address] | | | [place] [address] | + + + | Home Phone [...] [place] | | | | | [address] | | + + + + + Care Team Providers + +------+ + | Care Lead Cytogenetic Technologist Name | Role | Phone | [...] | | | | | | [place], [place] | | | | | | | [address] | | | | | | | Phone: | | | | | | | [phone] | | | | | | | Fax: | | | | | | | [phone] | +--------+--------+ + + + + Encounter [...] | | | [address] | [place], [place] | adult (HCC) (Primary | | | | Mailcode: Center | [address] | Dx); Borderline | | | | for Health and | [phone] | diabetes; Essential | | | | Healing, Building 2 | | hypertension; | | | | [place], [place] | | Ventral hernia with | | | | [address] | | obstruction and | | | | [phone] | | without gangrene | +--------+---------+ + [...] the resident s note. Es Bingham MD, [facility], FACS ES BINGHAM MD [facility] 6TH FLOOR [address] Mailcode: [facility] [place] [address] Nba Finn MD - 02/28/2018 2:25 PM PDT [facility] Department of Surgery [facility] Note [...] feels depressed since her was gone to [facility], improving since he returned home on [...] No new labs Imaging/Diagnostic Studies: ASSESSMENT: Sara AguliarRuth is a 32 y.o. female with a [...] Nba Amaya MD General Surgery, PGY-2 Pager [phone] documented in thi s encounter Plan of Treatment +--------+---------+ + + + | Date | Type | Specialty | Care Team | Description | +--------+---------+ + + + | 10/05/ | Office | Surgery | Shu, | | | 2018 | Visit | | MD Bryson [address] | | | | | | [address] | | | | | | [place], [place] | | | | | | [address] | | | | | | [phone] | | | | | | | [...]
--- OUTSIDE RECORDS SUMMARY | ~2019-09-27 | XMS | Encounter Summary ---
Demographics + + + | Address | [address] | | | [place] [address] | + + + | Home Phone [...] [place] | | | | | [address] | | + + + + + Care Team Providers + +------+ + | Care Scholarship Counselor Name | Role | Phone | + +------+ + | Aleshia Martinez PA-C | PCP | | + +------+ + Encounter Details +--------+------+ + + + | Date | Type | Department | Care Team | Description | +--------+------+ + + + | 01/06/ | Lab | Laboratory at [facility] | | Morbid obesity with | | 2017 | | [address] | | BMI of 40.0-44.9, | | | | [place], [place] | | adult (HCC); | | | | [address] | | Borderline diabetes; | | | | [phone] | | Essential | | | | [...] 2019 | Visit | | MD Bryson [address] | | | | | | [address] | | | | | | [place], [place] | | | | | | [address] | | | | | | [phone] | | | | | | | [...] | + + + + + | [facility] | [address] | [place] [address] | | | SERVICES, CORE | SHAHLA [...] + + + + | [facility] | [address] | [place] [address] | | | SERVICES, CORE | SHAHLA [...] (H)Comment: Hgb A1C | <5.7 % | VASU | | | A1C | Interpretive | [...] | [facility] | | considered for monitoring residential glycemic control in patients with: | LABORATORY [...] | + + + + + | [facility] | [address] | [place] [address] | | | SERVICES, SPECIAL | SHAHLA [...] INTERPRETIVE | 70 - 180 nmol/L | [facility] | | | WHOLE | INFORMATION: Vitamin [...] B: | | | | | | [employer].Viscose Closures/CSPerformed | | | | | | by [place],[address] | | | | | | Rashad Winter [facility],[place] | | | | | | [address] | | | | | | [phone].[employer]. | | | | | | comGerardo [...] [facility] | [address] | [place], [place] | | | [facility] | | [address] | | + + + + + [...] | | | LABORATORY | | | SOMALI | | | SERVICES, | | | [...] + + + + | [facility] | [address] | [place] [address] | | | SERVICES, CORE | SHAHLA [...] + + | [facility] | [address] | [place] [address] | | | SERVICES, CORE | PARK [...] [facility] | [address] | [place] [address] | | | SERVICES, CORE | SHAHLA [...] [facility] | [address] | [place] [address] | | | SERVICES, CORE | PARK [...] [facility] | [address] | [place] [address] | | | NILO, KUSH | SHAHLA [...] [facility] | [address] | [place] [address] | | | SERVICES, CORE | PARK [...] | + + + + + | [facility] | [address] | [place] [address] | | | KUSH CORCORAN | SHAHLA [...]
--- OUTSIDE RECORDS SUMMARY | ~2019-09-27 | XMS | Encounter Summary ---
Demographics + + + | Address | [address] | | | [place] [address] | + + + | Home Phone [...] [place] | | | | | [address] | | + + + + + Care Team Providers + +------+ + | Care Replenishment Merchandising Associate Name | Role | Phone | [...] | 2018 | Encounter | Center at [facility] [address] | | support group | | | | [address] | | | | | | Mailcode: [place] | | | | | | for Health and | | | | | | Healing, Building [address] | | | | | | [place], [place] | | | | | | [address] | | | | | | [phone] | | | +--------+ + + + [...] Rd | | | | | | [place] | | | | | | [address] | | | | | | [phone] | | | | | | | | +--------+---------+ + + + documented as of this encounter Visit Diagnoses Not on filedocumented in this encounter"
--- OUTSIDE RECORDS SUMMARY | ~2019-09-27 | XMS | Encounter Summary ---
Demographics + + + | Address | [address] | | | [place] [address] | + + + | Home Phone [...] [place] | | | | | [address] | | + + + + + Care Team Providers + +------+ + | Care Media Reporter Name | Role | Phone | [...] | | 2018 | | Center at [facility] [address] | [address] | ) | | | | [address] | [place], [place] | | | | | Mailcode: [place] | [address] | | | | | for Health and | [phone] | | | | | [place] [address] | | | | | | [place], [place] | | | | | | [address] | | | | | | [phone] | | | +--------+ + + + [...] Rd | | | | | | [place], [place] | | | | | | [address] | | | | | | [phone] | | | | | | | | +--------+---------+ + + + documented as of this encounter Visit Diagnoses Not on filedocumented in this encounter"
--- OUTSIDE RECORDS SUMMARY | ~2019-09-27 | XMS | Encounter Summary ---
Demographics + + + | Address | [address] | | | [place] [address] | + + + | Home Phone [...] [place] | | | | | [address] | | + + + + + Care Team Providers + +------+ + | Care Grid Inspector Name | Role | Phone | + +------+ + | Aleshia Martinez PA-C | PCP | | + +------+ + Reason for Visit +--------+ + | Reason | Comments | +--------+ + | Other | Patient seen in [facility] | +--------+ + Encounter Details +--------+ + + + + | Date | Type | Department | Care Team | Description | +--------+ + + + + | 01/28/ | Telephone | Digestive Health | ClarkeYumiko, | Other (Patient seen | | 2018 | | Center at [facility] [address] | ACN [address] | in [facility]) | | | | [address] | Ave [place], [place] | | | | | Mailcode: Center | [address] | | | | | for Health and | [phone] | | | | | [place] [address] | | | | | | [place], [place] | | | | | | [address] | | | | | | [phone] | | | +--------+ + + + [...] Rd | | | | | | [place], [place] | | | | | | [address] | | | | | | [phone] | | | | | | | | +--------+---------+ + + + documented as of this encounter Visit Diagnoses Not on filedocumented in this encounter"
--- OUTSIDE RECORDS SUMMARY | ~2019-09-27 | XMS | Encounter Summary ---
Demographics + + + | Address | [address] | | | [place] [address] | + + + | Home Phone [...] [place] | | | | | [address] | | + + + + + Care Team Providers + +------+ + | Care Treadle [place] Saw Operator Name | Role | Phone | [...] | 2019 | Encounter | Center at [facility] [address]573 | AGACNP [address] | | | | | [address] | [place], [place] | | | | | Mailcode: Center | [address] | | | | | for Health and | [phone] | | | | | Healing, Building [address] | | | | | | [place], [place] | | | | | | [address] | | | | | | [phone] | | | +--------+ + + + [...] 2019 | Visit | | MD Bryson [address] | | | | | | [address] | | | | | | [place], [place] | | | | | | [address] | | | | | | [phone] | | | | | | | [...]
--- OUTSIDE RECORDS SUMMARY | ~2019-09-27 | XMS | Encounter Summary ---
Demographics + + + | Address | [address] | | | [place] [address] | + + + | Home Phone [...] [place] | | | | | [address] | | + + + + + Care Team Providers + +------+ + | Care Security System Administrator Name | Role | Phone | [...] | | 2019 | | Center at [facility] [address]85 | MD [address] | | | | | [address] | [place], [place] | | | | | Mailcode: [place] | [address] | | | | | for Health and | | | | | | [place] [address] | | | | | | [place], [place] | | | | | | [address] | | | | | | | [...] [place] | | | | | | [address] | | | | | | [phone] | | | | | | | | +--------+---------+ + + + documented as of this encounter Visit Diagnoses Not on filedocumented in this encounter"
--- OUTSIDE RECORDS SUMMARY | ~2019-09-27 | XMS | Encounter Summary ---
Demographics + + + | Address | [address] | | | [place] [address] | + + + | Home Phone [...] [place] | | | | | [address] | | + + + + + Care Team Providers + +------+ + | Care Professor Of Philosophy Name | Role | Phone | + [...] Medical Records | | 2018 | | [place] [facility] [address] | | Review | | | | [address] | | | | | | Mailcode: [place] | | | | | | for Health and | | | | | | Healing, Building 2 | | | | | | [place], [place] | | | | | | [address] | | | | | | [phone] | | | +--------+ + + + [...] Rd | | | | | | [place], [place] | | | | | | [address] | | | | | | [phone] | | | | | | | | +--------+---------+ + + + documented as of this encounter Visit Diagnoses Not on filedocumented in this encounter"
--- OUTSIDE RECORDS SUMMARY | ~2019-09-27 | XMS | Encounter Summary ---
Demographics + + + | Address | [address] | | | [place] [address] | + + + | Home Phone [...] [place] | | | | | [address] | | + + + + + Care Team Providers + +------+ + | Care Web Knitter Name | Role | Phone | + [...] [place] | | | | | | [address] | | | | | | [phone] | | | | | | | | +--------+---------+ + + + documented as of this encounter Visit Diagnoses Not on filedocumented in this encounter"
--- OUTSIDE RECORDS SUMMARY | ~2019-09-27 | XMS | Encounter Summary ---
Demographics + + + | Address | [address] | | | [place] [address] | + + + | Home Phone [...] [place] | | | | | [address] | | + + + + + Care Team Providers + +------+ + | Care Health And Safety Manager Name | Role | Phone | [...] Rd | | | | | | [place] | | | | | | [address] | | | | | | [phone] | | | | | | | | +--------+---------+ + + + documented as of this encounter Visit Diagnoses Not on filedocumented in this encounter"
--- OUTSIDE RECORDS SUMMARY | ~2019-09-27 | XMS | Encounter Summary ---
Demographics + + + | Address | [address] | | | [place] [address] | + + + | Home Phone [...] [place] | | | | | [address] | | + + + + + Care Team Providers + +------+ + | Care Assistant Warehouse Manager Name | Role | Phone | [...] [facility] | MD [address] | sided near | | | | [address] | [place], [place] | incision) | | | | Mailcode: Center | [address] | | | | | for Health and | [phone] | | | | | [facility], [facility] [address] | | | | | | [place], [place] | | | | | | [address] | | | | | | [phone] | | | +--------+ + + + [...] [place] | | | | | | [address] | | | | | | [phone] | | | | | | | | +--------+---------+ + + + documented as of this encounter Visit Diagnoses Not on filedocumented in this encounter"
--- OUTSIDE RECORDS SUMMARY | ~2019-09-27 | XMS | Encounter Summary ---
Demographics + + + | Address | [address] | | | [place] [address] | + + + | Home Phone [...] [place] | | | | | [address] | | + + + + + Care Team Providers + +------+ + | Care Medical Care Administrator Name | Role | Phone | + +------+ + | Aleshia Martinez PA-C | PCP | | + +------+ + Encounter Details +--------+ + + + + | Date | Type | Department | Care Team | Description | +--------+ + + + + | 07/12/ | Abstract | Digestive Health | Clinic, Surgery | | | 2017 | | [place] at [facility] [address] | | | | | | [address] | | | | | | Mailcode: [place] | | | | | | for Health and | | | | | | Healing, Building 2 | | | | | | [place], [place] | | | | | | [address] | | | | | | [phone] | | | +--------+ + + + [...] Rd | | | | | | [place] | | | | | | [address] | | | | | | [phone] | | | | | | | | +--------+---------+ + + + documented as of this encounter Visit Diagnoses Not on filedocumented in this encounter"
--- OUTSIDE RECORDS SUMMARY | ~2019-09-27 | XMS | Encounter Summary ---
Demographics + + + | Address | [address] | | | [place] [address] | + + + | Home Phone [...] [address] | | | | | [place] | | | | | [address] | | + + + + + Care Team Providers + +------+ + | Care Door To Door Salesman Name | Role | Phone | + [...] | | | Procedures | [place], | [address] | | | | | PHYSICAL | [place] | for Health | | | | | THERAPY | [address] | and Healing, | | | | | REFERRAL | Phone: | Building 1, | | | | | | | [address] Floor | | | | | | Fax: | [place], [place] | | | | | | [phone] | [address] | | | | | | | Phone: | | | | | | | [phone] | | | | | | | Fax: | | | | | | | [phone] | +--------+--------+ + + + + Encounter [...] of 40.0-44.9, | | | | [facility] | [address] [place], | adult (HCC) (Primary | | | | [address] | [place] [address] | Dx); Essential | | | | Mailcode: CH3P | [phone] | hypertension; | | | | [facility] | | Ventral hernia with | | | | and Healing, | | obstruction and | | | | Building [address] | | without gangrene; | | | | Floor [place], [place] | | Physical | | | | [address] | | deconditioning | | | | [phone] | | | +--------+---------+ + + + [...] Product Type: Workers Com p / Non-Medicare [facility] EVALUATION Past Medical History: Diagnosis [...] pain is not a significant clinical problem [facility] EVALUATION History of Presenting Problem: [...] to work due to pain/injury. lives [facility]. Living situation/environment is limiting function: no [...] Moderate - Moderate complexity Complexity: Moderate - [address] The patient requires services that can be [...] status. NESHA HANNON PT [facility] AT [facility] 1ST FLOOR Scheduled Appointment time: 1:00 [...] 1 Referral information Authorizing Provider: MARY ADAMS [[id number]] Onset/Referral Date: 10/27/17 Primary/Referral Diagnosis: E66.01, Z68.41 Morbid obesity with BMI of 40.0-44.9, adult (H CC) I10 Essential hypertension K43.6 Ventral hernia with obstruction and without gangrene R53.81 Physical deconditioning Start of care: 01/06/2018 Service period from: 01/06/2018 to: - Next progress report 02/05/2018 Insurance: Payor: WORKERS COMP OTHER / Plan: WORKERS COMP OTHER / Product Type: [place] p / G-code:- code not needed. Number [...] | | | | | | [address] | | | | | | [place], [place] | | | | | | [address] | | | | | | [phone] | | | | | | | | +--------+---------+ + + + documented as of this encounter Procedures + +--------+ + + + | Procedure Name | Priori | Date/Time | Associated Diagnosis | Comments | | | ty | | | | + +--------+ + + + | SC THERAPEUTIC | Routin | 01/10/2018 | Morbid [...]
--- OUTSIDE RECORDS SUMMARY | ~2019-09-27 | XMS | Encounter Summary ---
Demographics + + + | Address | [address] | | | [place] [address] | + + + | Home Phone [...] [place] | | | | | [address] | | + + + + + Care Team Providers + +------+ + | Care Refrigeration Unit Repairer Name | Role | Phone | [...] 2018 | Visit | Center at [facility] [address]60 | ACNP [address] | sleeve gastrectomy | | | | [address] | Ave [place], [place] | (Primary Dx); | | | | Mailcode: Center | [address] | Vitamin D | | | | for Health and | | deficiency; Vitamin | | | | [facility] 2 | | B 12 deficiency; | | | | [place], [place] | | Morbid obesity (HCC) | | | | [address] | | | | | | | [...] encounter Patient Instructions Patient Instructions Emily Martinez [facility] - 09/07/2018 10:50 AM PST3. Take acid guide dog mobility instructor fo r first 3 mos, then wean [...] cium, dairy or acid reducers) Calcium citrate 0068-5544 mg per day with vitamin D 1000 [...] stomach treated with diaza romeo. Scheduled with addiction nurse following this appointment. Arrived on time, rooming [...] week 2. Labs:none today 3. Take acid guide dog mobility instructor for first 3 mos, then wean off [...] in appointment: 30 Emily Martinez DNP, ACNP, SLASHER RUNNER Day Care Provider Bariatric Surgery [facility] and [facility] [place] documented in this encounter Plan of Treatment +--------+---------+ + + + | Date | Type | Specialty | Care Team | Description | +--------+---------+ + + + | 10/05/ | Office | Surgery | Shu, | | | 2018 | Visit | | MD Bryson [address] | | | | | | [address] | | | | | | [place], [place] | | | | | | [address] | | | | | | [phone] | | | | | | | [...]
--- OUTSIDE RECORDS SUMMARY | ~2019-09-27 | XMS | Encounter Summary ---
Demographics + + + | Address | [address] | | | [place] [address] | + + + | Home Phone [...] [place] | | | | | [address] | | + + + + + Care Team Providers + +------+ + | Care Environmental Sampling Technician Name | Role | Phone | [...] | Center at [facility] [address]85 | MD [address] | | | | | [address] | [place], [place] | | | | | Mailcode: Center | [address] | | | | | for Health and | | | | | | [facility] 2 | | | | | | [place], [place] | | | | | | [address] | | | | | | | [...] Rd | | | | | | [place], [place] | | | | | | [address] | | | | | | [phone] | | | | | | | | +--------+---------+ + + + documented as of this encounter Visit Diagnoses Not on filedocumented in this encounter"
--- OUTSIDE RECORDS SUMMARY | ~2019-09-27 | XMS | Encounter Summary ---
Demographics + + + | Address | [address] | | | [place] [address] | + + + | Home Phone [...] [place] | | | | | [address] | | + + + + + Care Team Providers + +------+ + | Care Squad Boss Name | Role | Phone | + [...] | | | or gangrene | | [place] for | | | | | | | Health and | | | | | | | Healing, | | | | | | | Building 2 | | | | | | | [place], [place] | | | | | | | [address] | | | | | | | Phone: | | | | | | | [phone] | | | | | | | Fax: | | | | | | | [phone] | + +--------+ + + + + [...] | | | [address] | [facility] [address] | (Primary Dx) | | | | Mailcode: Center | [place], [place] | | | | | for Health and | [address] | | | | | [facility], [place] [address] | | | | | | [place], [place] | | | | | | [address] | | | | | | [phone] | | | +--------+---------+ + + + [...] of visit: 10:42am to 11:08am (26 minutes [id number] with patient) Surgery: Sleeve Gastrectomy Date of [...] multivitamin & mineral (with iron) supplement, 2/day -5508-5577 mg calcium citrate with vitamin D/day (take in divided doses, not within 2 hour s of multivitamin or iron supplement) -500 mcg/day sublingual B12 supplement (or monthly injections) Continued to reinforce importance of mindful eating. Continue to increase physical activity. Follow up in [address], Pager # [phone] signed by Tea Reece RD at 09/29/2018 [...] Rd | | | | | | [place], [place] | | | | | | [address] | | | | | | [phone] | | | | | | | | +--------+---------+ + + + documented as of this encounter Procedures + +--------+ + + + | Procedure Name | Priori | Date/Time | Associated Diagnosis | Comments | | | ty | | | | + +--------+ + + + | [place] MNT RE-ASSESSMNT | Routin | 09/29/2018 | [...]
--- OUTSIDE RECORDS SUMMARY | ~2019-09-27 | XMS | Encounter Summary ---
Demographics + + + | Address | [address] | | | [place] [address] | + + + | Home Phone [...] [place] | | | | | [address] | | + + + + + Care Team Providers + +------+ + | Care Mortgage Loan Closer Name | Role | Phone | + [...] 2018 | Encounter | Center at [facility] [address]352 | ACNP [address] | | | | | [address] | Ave [place], [place] | | | | | Mailcode: Center | [address] | | | | | for Health and | [phone] | | | | | Healing, Building 2 | | | | | | [place], [place] | | | | | | [address] | | | | | | [phone] | | | +--------+ + + + [...] 2019 | Visit | | MD Bryson [address] | | | | | | [address] | | | | | | [place], [place] | | | | | | [address] | | | | | | [phone] | | | | | | | | +--------+---------+ + + + documented as of this encounter Visit Diagnoses Not on filedocumented in this encounter"
--- OUTSIDE RECORDS SUMMARY | ~2019-09-27 | XMS | Encounter Summary ---
Demographics + + + | Address | [address] | | | [place] [address] | + + + | Home Phone [...] [place] | | | | | [address] | | + + + + + Care Team Providers + +------+ + | Care Radiology Administrator Name | Role | Phone | [...] 2018 | Encounter | Center at [facility] 9169 | ACNP [address] | | | | | [address] | Ave [place], [place] | | | | | Mailcode: Center | [address] | | | | | for Health and | [phone] | | | | | Healing, Building 2 | | | | | | [place], [place] | | | | | | [address] | | | | | | [phone] | | | +--------+ + + + [...] 2019 | Visit | | MD Bryson [address] | | | | | | [address] | | | | | | [place], [place] | | | | | | [address] | | | | | | [phone] | | | | | | | | +--------+---------+ + + + documented as of this encounter Visit Diagnoses Not on filedocumented in this encounter"
--- OUTSIDE RECORDS SUMMARY | ~2019-09-27 | XMS | Encounter Summary ---
Demographics + + + | Address | [address] | | | [place] [address] | + + + | Home Phone [...] [place] | | | | | [address] | | + + + + + Care Team Providers + +------+ + | Care Bee Keeper Name | Role | Phone | [...] | | | Procedures | [place], | [address] | | | | | PHYSICAL | [place] | for Health | | | | | THERAPY | [address] | and Healing, | | | | | REFERRAL | Phone: | Building 1, | | | | | | | [address] Floor | | | | | | Fax: | [place], [place] | | | | | | [phone] | [address] | | | | | | | Phone: | | | | | | | [phone] | | | | | | | Fax: | | | | | | | [phone] | +--------+--------+ + + + + Encounter Details +--------+ + + + + | Date | Type | Department | Care Team | Description | +--------+ + + + + | 10/27/ | Immigration Services Officer | Digestive Health | Marta Simmons, | Morbid obesity (HCC) | | 2018 | | Center at [facility] [address] | AGACNP [address] | (Primary Dx) | | | | [address] | Ave [place], [place] | | | | | Mailcode: Center | [address] | | | | | for Health and | | | | | | Healing, Building 2 | | | | | | [place], [place] | | | | | | [address] | | | | | | [phone] | | | +--------+ + + + [...] Rd | | | | | | [place], [place] | | | | | | [address] | | | | | | [phone] | | | | | | | | +--------+---------+ + + + documented as of this encounter Visit Diagnoses + + | Diagnosis | + + | Morbid obesity (HCC) - Primary Morbid obesity | + + documented in this encounter"
--- OUTSIDE RECORDS SUMMARY | ~2019-09-27 | XMS | Clinical Summary ---
Demographics + + + | Address | [address] | | | [place] [address] | + + + | Home Phone | | + + + | Preferred Language | Unknown | + + + | Marital Status | | + + + | Samaritan Affiliation | CHR | + + + | Race | White | + + + | Ethnic Group | Not or | + + + Author + + + | Author | [facility] | + + + | Organization | [facility] | + + + | Address | Unknown | + + + | Phone | Unavailable | + + + Support + + + + + | Name | Relationship | Address | Phone | + + + + + | Stewart Corbett | ECON | [address] | | | | | [place] | | | | | [address] | | + + + + + Care Team Providers + +------+ + | Care Highway Engineering Teacher Name | Role | Phone | + +------+ + | Aleshia Martinez PA-C | PCP | | + +------+ + Source Comments [facility] is fully live on both EpicCare Ambulatory and EpicCare InPatient[facility] Allergies + + + + [...] | | | + + +---------+---+------+---+-------+ | oxyCODONE | Take 1-2 tablets by | 20 | 0 | 12/0 | | Activ | | (immediate release) | mouth every three | tablet | | 2/20 | | e | | 5 mg oral tablet | hours as needed for | | | 19 | | | | | moderate pain or | | | | | | | | severe pain. | | | | | | + [...] | | | + + +---------+---+------+---+-------+ | acetaminophen 500 | Take 1-2 tablets by | 60 | 0 | 12/0 | | Activ | | mg oral tablet | mouth every six | tablet | | 2/20 | | e | | | hours as needed. | | | 19 | | | + + +---------+---+------+---+-------+ Active Problems + [...] + + | 09/25/ | Pharmacy | | | | | 2018 | Visit | | | | +--------+ + + + + | 09/22/ | Surgery | Surgery | Shu | [place] [facility] | | 2018 | | | MD Bryson | HERNIA REPAIR AND | | | | | | EXCISION OF MESH | +--------+ + + + + | 09/22/ | Anesthesia | Surgery | Rafi Askew, | | | 2018 | Paola | | Lety Arias | | | | | | ZACHERY Echevarria | | +--------+ + + + + | 09/22/ | Hospital | Adult Acute Care | Shu, | | | 2018 - | Encounter | | MD Bryson | | | | | | | | | 09/25/ | | | | | | 2018 | | | | | +--------+ + + + + | 09/22/ | Travel [...] Pre-operative | | Pre-op evaluation | | 2019 | cheduled | Medicine | | | +--------+ + + + + | 08/28/ | Travel | | | | | 2018 | | | | | +--------+ + + + + | 07/28/ | MyChart | Surgery | Shu, | RE: Surgery for the | | 2019 | Encounter | | MD Bryson | hernia | +--------+ + + + + | 07/06/ | Office | Surgery | Shu | Ventral hernia with | | 2019 | Visit | | MD Bryson | [...] Rd | | | | | | [place], [place] | | | | | | [address] | | | | | | [phone] | | | | | | | [...] - | | | | | | /[id number] | | [id number]: Qty: 2 on | | | | | | 245 | | 08/31/2018 by Gildardo Downing | | | | | | | | MD Navin at [facility] | | | | [...] - | | | | | | /[id number] | | [id number]: Qty: 2 on | | | | | | 248 | | 08/31/2018 by Gildardo Downing | | | | | | | | MD Navin at [facility] | | | | | | | | LOC | | | | | | | + +------+--------+ +--------+--------+--------+ | Mesh Surgical Bard [id number] | | N/A: | BARD | | 04/21/ | [id number] | | Hernia Soft Lightweight Low | | Abdome | | | 2023 | 6 / | | Profile Strong Knit | | n | | | | /[id number] | | Construction Monofilament - | | | | | | 141 | | [id number]: Qty: 1 on | | | | | | | | 09/22/2019 by Shu, | | | | | | | | MD Bryson at [facility] | | | | | | | [...] section. | + +--------+ + + + from Last 3 Months Results PROCEDURE NOTE (09/25/2019 12:59 PM PST)CBC [...] | + + + + + | [facility] | [address] | [place] [address] | | | SERVICES, CORE | SHAHLA [...] | | | LABORATORY | | | [place] | | | SERVICES, | | | [...] MDRD equation recommended by the National | [facility] | | Kidney Disease Education Program. Estimated [...] + + + + + | [facility] | [address] | [place] [address] | | | SERVICES, CORE | PARK [...] C[facility]Y [facility] | [address] | [place] [address] | | | SERVICES, CORE | SHAHLA [...] + + + + + | [facility] | [address] | [place] [address] | | | SERVICES, CORE | [address] | | | + + + + + CAPILLARY BLOOD GLUCOSE (NO CHG), POC (09/22/2019 3:57 PM PST)Only the most recent of 2 re sults within the time period is included. + +-------+ + + + | Component [...] [place] | [address] | [place], [place] | | | [facility] | [facility] | [address] | | | TESTS | | | | + + + + + ETT (09/22/2019 12:35 PM PST) + + [...] Wilkinson CRNA | | + + + INTRAPROCEDURE IMAGING (09/22/2019 10:23 [...] ABDI | [address] | [place], [place] | | | [facility] | [address] | [address] | | | TESTS | | | | + + + + + from Last 3 Months Insurance + +--------+ +--------+-------+---------+--------+ [...] mi | al/Fam | | 1984 | [phone] | [place] [address] | | | pawel | | | 9 (Home) | | + +--------+ +--------+ + + | Miguelangel Caballero | Worker | Self | [birth year] | | [address] | | mi | s Comp | | [phone] | [place] [address] | | | | | | 9 (Home) | | + +--------+ +--------+ + + | Miguelangel Caballero | Worker | Self | [birth year] | | [address] | | mi | s Comp | | 1984 | [phone] | [place] [address] | | | | | | 9 (Home) | | + +--------+ +--------+ + + | Miguelangel Caballero | Worker | Self | [birth year] | | [address] | | mi | s Comp | | 1984 | [phone] | [place] [address] | | | | | | 9 [...]
--- OUTSIDE RECORDS SUMMARY | ~2019-09-27 | XMS | Encounter Summary ---
Demographics + + + | Address | [address] | | | [place] [address] | + + + | Home Phone [...] [place] | | | | | [address] | | + + + + + Care Team Providers + +------+ + | Care Vehicle Glass Technician Name | Role | Phone | [...] [place] | | | | | | [address] | | | | | | [phone] | | | | | | | | +--------+---------+ + + + documented as of this encounter Visit Diagnoses Not on filedocumented in this encounter"
--- OUTSIDE RECORDS SUMMARY | ~2019-09-27 | XMS | Encounter Summary ---
Demographics + + + | Address | [address] | | | [place] [address] | + + + | Home Phone [...] [place] | | | | | [address] | | + + + + + Care Team Providers + +------+ + | Care Mailing Clerk Name | Role | Phone | [...] + + | 08/31/ | Hospital | [facility] [address] | Gildardo Downing, | | | 2018 - | Encounter | [address] | [address] | | | | | [place], [place] | [place], [place] | | | 09/02/ | | [address] | [address] | | | 2017 | | [phone] | [phone] | | | | | | | [...] differen t from the original. [facility] RED SURGERY INPATIENT DISCHARGE SUMMARY Author: GAUTAM [...] We will have her follow up with [facility] Bariatric Nurse Practitioner in [...] or Kefir, [place]oney[place] Yogurt, and Chioban i Turkish Yogurt are common brands with beneficial probiotics. [...] are available over the counter at most the [facility] [employer] stores. Nausea/Vomiting/Difficulty Swallowing Nausea/Vomiting/Difficulty swallowing: Could be [...] hours per your instructions. Some medications, like [place], have Tylenol in it. Make sure you [...] (PCP) as this clinic does not provide [facility] chronic pain management services. When to [...] hours by calling the surgery office at [phone]. - After hours, weekends and holidays, you may call the hospital help desk operator at [phone] an d have the industrial rehabilitation consultant Red Surgery Team paged. Destination Home Condition [...] Acute Care Why: follow up with bariatric BOILER HELPER Contact information [address] [facility] [address] Future Appointments Provider Department Dept Phone Center 09/07/2018 10:00 AM Che[facility] 6th Floor [phone] KATIA D AND NUT 09/07/2018 10:50 AM Emily Martinez [address] [facility] at [facility] 6th Floor [phone] D ig Health 09/29/2018 10:30 AM Tea [facility] at [facility] 6th Floor [phone] F OOD AND NUT 09/29/2018 11:20 AM Gildardo Downing Digestive [facility] at [facility] 6th Floor [phone] Di g Health 11/25/2018 10:00 AM [facility] at [facility] 6th Floor [phone] FO OD AND NUT 11/25/2018 10:[address] Etienne [address] [facility] at [facility] 6th Floor [phone] Dig Hea [facility] Discharging Physician: GAUTAM Leblanc Attending Physician: Gildardo Downing MD [facility] Red Surgery Pager# [phone] 10:42 AM 09/02/2018 documented in th is [...] SCDs in place Assessment and Plan: Sara BloodJohnAric is a 33 y.o. female s/p laparoscopic [...] if this helps. Gildardo Downing MD, FACS, [facility] Division of Bariatric Surgery [facility] | [address] | [place], [place] | [address] | Ludwin Tellez MD - 08/31/2018 8:54 [...] Ludwin Tellez MD General Surgery, PGY1 Pager: [phone] documented in this en counter Plan of Treatment +--------+---------+ + + + | Date | Type | Specialty | Care Team | Description | +--------+---------+ + + + | 10/05/ | Office | Surgery | Shu, | | | 2018 | Visit | | MD Bryson [address] | | | | | | [address] | | | | | | [place], [place] | | | | | | [address] | | | | | | [phone] | | | | | | | [...] C[facility] DEPT OF | [address] | [place], [place] | | | CARDIOLOGY | [address] | [address] | | + + + + + [...] MARQUAM | [address] | [place], [place] | | | [facility] | [address] | [address] | | | TESTS | | | [...] (H) | 60 - 99 mg/dL | [facility] - | | | GLUCOSE, | | [...] ABDI | [address] | [place], [place] | | | [facility] | [address] | [address] | | | TESTS | | | [...] SURGEON: Gildardo Downing MD. | | | DATA ENTRY ASSOCIATE: Jamie Gonzales MD R6. ANESTHESIA: Ke Strong [...] | | | Gildardo Downing MD, FACS, [facility] Bariatric Surgery | | | | [...] SURGEON: Gildardo Downing MD. | | | DATA ENTRY ASSOCIATE: Jamie Gonzales MD R6. ANESTHESIA: Ke Strong [...] case. | | | Gildardo Downing MD, [facility] | | | | | + + + CAPILLARY BLOOD GLUCOSE (NO CHG), POC (08/31/2018 11:23 AM PST) + +-------+ + + + | Component | Value | Ref Range | Performed | Pathologist | | | | | At | Signature | + +-------+ + + + | BLOOD | 75 | 60 - 99 mg/dL | [facility] - | | | GLUCOSE, | | [...] ABDI | [address] | [place], [place] | | | [facility] | [address] | [address] | | | TESTS | | | [...] | | | | | | | [facility] 09/01/18 at 1300 | | | | [...] | | | | First dose on [facility] 09/01/18 at 0900 | | | | [...] | | | | | | | [facility] 09/01/18 at 1300 | | | | [...] | | | | | 2045, Until [facility] 09/01/18 at 0611, | | | | [...] | | | | | dose on [facility] 09/01/18 at 0900, | | AM PST [...] | | | | | dose on [facility] 09/01/18 at 0900, | | AM PST [...] | | | | | dose on [facility] 09/01/18 at 0900 | | | | | | + +-------+ +--------+---+---+ +---+---+ | | | +---+---+ documented in this encounter
--- OUTSIDE RECORDS SUMMARY | ~2019-09-27 | XMS | Encounter Summary ---
Demographics + + + | Address | [address] | | | [place] [address] | + + + | Home Phone [...] [place] | | | | | [address] | | + + + + + Care Team Providers + +------+ + | Care Hat Brim Curler Name | Role | Phone | + [...] at | | | | | | [facility] | | | | | | [address] | | | | | | Mail Code: OC8PM | | | | | | [facility] | | | | | | and Healing, | | | | | | [address] | | | | | | [place], [place] | | | | | | [address] | | | | | | [phone] | | | +--------+ + + + + Anesthesia Record + + + + + | Procedure Name | Responsible | Anesthesia Start | Anesthesia Stop Time | | | Anesthesiologist | Time | | + + + + + | RECURRENT VENTRAL | Rafi Askew MD | 09/22/19 1158 | 09/22/19 3435 | | HERNIA REPAIR AND | | [...] | | Oral; Cuffed; 09/22/19; 1544 | PATIENT AMBASSADOR | PATIENT AMBASSADOR | +--------+ + + + documented in [...] exist, including nicotine patches and gum. The [place] Quit Line can also be reached at 1.800.QUIT.NOW ( ) or online at [email or web address]. Surgery check-in location: [facility] Surgery Check in Time: you will receive a call 1-3 business days before your surgery confi rming your exact arrival/check-in time for your surgery day. We know that planning for surg lyndsay can be stressful and involve a lot of family/friend/transportation coordination as well as hotel arrangements. The [facility] does not have access to check in regional hospital for respiratory and complex care, and we encourage you to contact your [...] ch as Uber/Lyft), or public transportation. An Uber/Lyft/vibratory pile driver does not count as the responsible [...] it is after office hours, call the [facility] lime filter operator at [phone] and ask them to page him or [...] Rd | | | | | | [place] | | | | | | [address] | | | | | | [phone] | | | | | | | | +--------+---------+ + + + documented as of this encounter Visit Diagnoses Not on filedocumented in this encounter
--- OUTSIDE RECORDS SUMMARY | ~2019-09-27 | XMS | Encounter Summary ---
Demographics + + + | Address | [address] | | | [place] [address] | + + + | Home Phone [...] [place] | | | | | [address] | | + + + + + Care Team Providers + +------+ + | Care Welder Fitter Arc Name | Role | Phone | + +------+ + | Aleshia Martinez PA-C | PCP | | + +------+ + Encounter Details +--------+ + + + + | Date | Type | Department | Care Team | Description | +--------+ + + + + | 05/03/ | Abstract | Digestive Health | Clinic, Surgery | | | 2017 | | [place] [facility] [address] | | | | | [address] | | | | | | Mailcode: [place] | | | | | | for Health and | | | | | | Healing, [address] | | | | | | [place], [place] | | | | | | [address] | | | | | | [phone] | | | +--------+ + + + [...] Rd | | | | | | [place] | | | | | | [address] | | | | | | [phone] | | | | | | | | +--------+---------+ + + + documented as of this encounter Visit Diagnoses Not on filedocumented in this encounter"
--- OUTSIDE RECORDS SUMMARY | ~2019-09-27 | XMS | Encounter Summary ---
Demographics + + + | Address | [address] | | | [place] [address] | + + + | Home Phone [...] [place] | | | | | [address] | | + + + + + Care Team Providers + +------+ + | Care Pool Lifeguard Name | Role | Phone | [...] | | | | | | | [place], [place] | | | | | | | [address] | | | | | | | Phone: | | | | | | | [phone] | | | | | | | Fax: | | | | | | | [phone] | +--------+--------+ + + + + Encounter [...] | | | [address] | [place], [place] | adult (HCC) (Primary | | | | Mailcode: Center | [address] | Dx); Borderline | | | | for Health and | [phone] | diabetes; Essential | | | | Healing, [address] | | hypertension; | | | | [place], [place] | | Ventral hernia with | | | | [address] | | obstruction and | | | | [phone] | | without gangrene | +--------+---------+ + [...] the resident s note. Es Bingham MD, [facility], FACS ES BINGHAM MD [facility] 6TH FLOOR [address] Mailcode: [facility] [place] [address] Nba Finn MD - 02/28/2018 2:25 PM PDT [facility] Department of Surgery [facility] Note [...] feels depressed since her was gone to [facility], improving since he returned home [...] Nba Amaya MD General Surgery, PGY-2 Pager [phone] documented in thi s encounter Plan of Treatment +--------+---------+ + + + | Date | Type | Specialty | Care Team | Description | +--------+---------+ + + + | 10/05/ | Office | Surgery | Shu, | | | 2018 | Visit | | MD Bryson [address] | | | | | [address] | | | | | | [place], [place] | | | | | | [address] | | | | | | [phone] | | | | | | | [...]
--- OUTSIDE RECORDS SUMMARY | ~2019-09-27 | XMS | Encounter Summary ---
Demographics + + + | Address | [address] | | | [place] [address] | + + + | Home Phone [...] [place] | | | | | [address] | | + + + + + Care Team Providers + +------+ + | Care Brim Flexer Name | Role | Phone | + [...] Rd | | | | | | [place] | | | | | | [address] | | | | | | [phone] | | | | | | | | +--------+---------+ + + + documented as of this encounter Visit Diagnoses Not on filedocumented in this encounter"
--- OUTSIDE RECORDS SUMMARY | ~2019-09-27 | XMS | Encounter Summary ---
Demographics + + + | Address | [address] | | | [place] [address] | + + + | Home Phone [...] [place] | | | | | [address] | | + + + + + Care Team Providers + +------+ + | Care Filling Machine Set Up Mechanic Name | Role | Phone | [...] | 2017 | Visit | Center at [facility] [address] | | body mass index of | | | | [address] | | 40.0-44.9 in adult | | | | Mailcode: Center | | ([facility]) (Primary Dx) | | | | for Health and | | | | | | [facility] [address] | | | | | | [place], [place] | | | | | | [address] | | | | | | [phone] | | | +--------+---------+ + + + [...] of Class: 2:00/3:00 until 3:00/4:00 (60 minutes hrdw-vi-ejin with patient) OBJECTIVE: Height: Ht Readings from [...] sharing information. Yes Carmen Dumont RD,LD Pager# [phone] Phone: [phone] documented in this en counter Plan of Treatment +--------+---------+ + + + | Date | Type | Specialty | Care Team | Description | +--------+---------+ + + + | 10/05/ | Office | Surgery | Suh, | | | 2018 | Visit | | MD Bryson [address] | | | | | [address] | | | | | | [place], [place] | | | | | | [address] | | | | | | [phone] | | | | | | | | +--------+---------+ + + + documented as of this encounter Visit Diagnoses + + | Diagnosis | + + | Morbid obesity with body mass index of 40.0-44.9 in adult (HCC) - Primary | + + documented in this encounter
--- OUTSIDE RECORDS SUMMARY | ~2019-09-27 | XMS | Encounter Summary ---
Demographics + + + | Address | [address] | | | [place] [address] | + + + | Home Phone [...] [place] | | | | | [address] | | + + + + + Care Team Providers + +------+ + | Care Concrete Crusher Loader Operator Name | Role | Phone [...] 2018 | Encounter | Center at [facility] [address] | ACNP [address] | vitamin ok? | | | | [address] | Ave [place], [place] | | | | | Mailcode: Center | [address] | | | | | for Health and | [phone] | | | | | [facility] [address] | | | | | | [place], [place] | | | | | | [address] | | | | | | [phone] | | | +--------+ + + + [...] Rd | | | | | | [place], [place] | | | | | | [address] | | | | | | [phone] | | | | | | | | +--------+---------+ + + + documented as of this encounter Visit Diagnoses Not on filedocumented in this encounter"
--- OUTSIDE RECORDS SUMMARY | ~2019-09-27 | XMS | Encounter Summary ---
Demographics + + + | Address | [address] | | | [place] [address] | + + + | Home Phone [...] [place] | | | | | [address] | | + + + + + Care Team Providers + +------+ + | Care Radio Installer Name | Role | Phone | [...] | | | or gangrene | | [place] for | | | | | | | Health and | | | | | | | Healing, | | | | | | | [address] | | | | | | | [place], [place] | | | | | | | [address] | | | | | | | Phone: | | | | | | | [phone] | | | | | | | Fax: | | | | | | | [phone] | + +--------+ + + + + [...] | | | [address] | [address] | (Primary Dx) | | | | Mailcode: Center | [place], [place] | | | | | for Health and | [address] | | | | | [facility] [place] [address] | | | | | | [place], [place] | | | | | | [address] | | | | | | [phone] | | | +--------+---------+ + + + [...] of visit: 10:00 to 10:28 (28 minutes fnmp-la-vlek with patient) Surgery: Sleeve Gastrectomy Date of [...] multivitamin & mineral (with iron) supplement, 2/day -8499-0158 mg calcium citrate with vitamin D/day (take in divided doses, not within 2 hour s of multivitamin or iron supplement) -500 mcg/day sublingual B12 supplement (or monthly injections) Continued to reinforce importance of mindful eating. Continue to increase physical activity. Follow up in [address], Pager # [phone] signed by Tea Reece RD at 11/25/2018 10:38 AM PSTdocument ed in this encounter Plan of Treatment +--------+---------+ + + + | Date | Type | Specialty | Care Team | Description | +--------+---------+ + + + | 10/05/ | Office | Surgery | Shu, | | | 2018 | Visit | | MD Bryson [address] | | | | | [address] | | | | | | [place], [place] | | | | | | [address] | | | | | | [phone] | | | | | | | | +--------+---------+ + + + documented as of this encounter Procedures + +--------+ + + + | Procedure Name | Priori | Date/Time | Associated Diagnosis | Comments | | | ty | | | | + +--------+ + + + | MS MNT RE-ASSESSMNT | Routin | 11/25/2018 | [...]
--- OUTSIDE RECORDS SUMMARY | ~2019-09-27 | XMS | Encounter Summary ---
Demographics + + + | Address | [address] | | | [place] [address] | + + + | Home Phone [...] [place] | | | | | [address] | | + + + + + Care Team Providers + +------+ + | Care Direct Service Worker Name | Role | Phone | [...] | 2017 | | Center at [facility] [address] | [address] | | | | | [address] | [facility] [place] | | | | | Mailcode: Center | [address] | | | | | for Health and | [phone] | | | | | [facility], [address] | | | | | | [place], [place] | | | | | | [address] | | | | | | [phone] | | | +--------+ + + + [...] Rd | | | | | | [place], [place] | | | | | | [address] | | | | | | [phone] | | | | | | | | +--------+---------+ + + + documented as of this encounter Visit Diagnoses Not on filedocumented in this encounter"
--- OUTSIDE RECORDS SUMMARY | ~2019-09-27 | XMS | Encounter Summary ---
Demographics + + + | Address | [address] | | | [place] [address] | + + + | Home Phone [...] [place] | | | | | [address] | | + + + + + Care Team Providers + +------+ + | Care Automotive Worker Name | Role | Phone | [...] 2018 | Encounter | Center at [facility] [address] | | support group | | | | [address] | | | | | | Mailcode: [place] | | | | | | for Health and | | | | | | Healing, [address] | | | | | | [place], [place] | | | | | | [address] | | | | | | [phone] | | | +--------+ + + + [...] | | | | | | [place] | | | | | | [address] | | | | | | [phone] | | | | | | | | +--------+---------+ + + + documented as of this encounter Visit Diagnoses Not on filedocumented in this encounter"
--- OUTSIDE RECORDS SUMMARY | ~2019-09-27 | XMS | Encounter Summary ---
Demographics + + + | Address | [address] | | | [place] [address] | + + + | Home Phone [...] [place] | | | | | [address] | | + + + + + Care Team Providers + +------+ + | Care Axle Turner Name | Role | Phone | + [...] the | | 2019 | Encounter | [place] [facility] [address] | MD Bryson [address] | hernia | | | | [address] | [address] | | | | | Mailcode: Center | [place], [place] | | | | | for Health and | [address] | | | | | [facility], Building 2 | [phone] | | | | | [place], [place] | | | | | | [address] | | | | | | [phone] | | | +--------+ + + + [...] Rd | | | | | | [place], [place] | | | | | | [address] | | | | | | [phone] | | | | | | | | +--------+---------+ + + + documented as of this encounter Visit Diagnoses Not on filedocumented in this encounter"
--- OUTSIDE RECORDS SUMMARY | ~2019-09-27 | XMS | Encounter Summary ---
Demographics + + + | Address | [address] | | | [place] [address] | + + + | Home Phone [...] [place] | | | | | [address] | | + + + + + Care Team Providers + +------+ + | Care Network Mgr Name | Role | Phone | + +------+ + | Aleshia Martinez PA-C | PCP | | + +------+ + Encounter Details +--------+ + + + + | Date | Type | Department | Care Team | Description | +--------+ + + + + | 02/25/ | Telephone | Digestive Health | Es Rausch, | | | 2018 | | Center at [facility] [address] | [address] | | | | | [address] | [facility] [place] | | | | | Mailcode: Center | [address] | | | | | for Health and | [phone] | | | | | [facility], [address] 2 | | | | | | [place], [place] | | | | | | [address] | | | | | | [phone] | | | +--------+ + + + [...] | | | | | | [place], [place] | | | | | | [address] | | | | | | [phone] | | | | | | | | +--------+---------+ + + + documented as of this encounter Visit Diagnoses Not on filedocumented in this encounter"
--- OUTSIDE RECORDS SUMMARY | ~2019-09-27 | XMS | Encounter Summary ---
Demographics + + + | Address | [address] | | | [place] [address] | + + + | Home Phone [...] [place] | | | | | [address] | | + + + + + Care Team Providers + +------+ + | Care Cottonseed Meat Presser Name | Role | Phone | + +------+ + | Aleshia Martinez PA-C | PCP | | + +------+ + Reason for Visit +--------+ + | Reason | Comments | +--------+ + | Other | Patient seen in [facility] | +--------+ + Encounter Details +--------+ + + + + | Date | Type | Department | Care Team | Description | +--------+ + + + + | 01/28/ | Telephone | Digestive Health | ClarkeYumiko, | Other (Patient seen | | 2018 | | Center at [facility] 3485 | ACN [address] | in [facility]) | | | | [address] | [place], [place] | | | | | Mailcode: Center | [address] | | | | | for Health and | [phone] | | | | | [place] [address] | | | | | | [place], [place] | | | | | | [address] | | | | | | [phone] | | | +--------+ + + + [...] Rd | | | | | | [place], [place] | | | | | | [address] | | | | | | [phone] | | | | | | | | +--------+---------+ + + + documented as of this encounter Visit Diagnoses Not on filedocumented in this encounter"
--- OUTSIDE RECORDS SUMMARY | ~2019-09-27 | XMS | Encounter Summary ---
Demographics + + + | Address | [address] | | | [place] [address] | + + + | Home Phone [...] + + + + + | Stewart Cobrett | ECON | [address] | | | | | [place] | | | | | [address] | | + + + + + Care Team Providers + +------+ + | Care Hair And Makeup Designer Name | Role | Phone | [...] | | | | | hernia | [address] [facility] | | | | | | Procedures | [address] | | | | | | CT ABDOMEN | Rd | | | | | | AND PELVIS | [place], [place] | | | | | | [place] | [address] | | | | | | CONTRAST | Phone: | | | | | | | [phone] | | | | | | | Fax: | | | | | | | [phone] | | + +--------+ + + + [...] Patient's Condition | | 2019 | | [place] [address] | MD Bryson [address] | Worsened | | | | [address] | [address] | | | | | Mailcode: [address] | [place], [place] | | | | | [facility] and | [address] | | | | | [facility] 2 | [phone] | | | | | [place], [place] | | | | | | [address] | | | | | | [phone] | | | +--------+ + + + [...] Rd | | | | | | [place], [place] | | | | | | [address] | | | | | | [phone] | | | | | | | [...]
--- OUTSIDE RECORDS SUMMARY | ~2019-09-27 | XMS | Encounter Summary ---
Demographics + + + | Address | [address] | | | [place] [address] | + + + | Home Phone [...] [place] | | | | | [address] | | + + + + + Care Team Providers + +------+ + | Care Medical Recruiter Name | Role | Phone | [...] | 2017 | Encounter | Center at [facility] 75[address] | MD [address] | | | | | [address] | [place], [place] | | | | | Mailcode: Center | [address] | | | | | for Health and | | | | | | [facility] 2 | | | | | | [place], [place] | | | | | | [address] | | | | | | | [...] Rd | | | | | | [place], [place] | | | | | | [address] | | | | | | [phone] | | | | | | | | +--------+---------+ + + + documented as of this encounter Visit Diagnoses Not on filedocumented in this encounter"
--- OUTSIDE RECORDS SUMMARY | ~2019-09-27 | XMS | Encounter Summary ---
Demographics + + + | Address | [address] | | | [place] [address] | + + + | Home Phone [...] [place] | | | | | [address] | | + + + + + Care Team Providers + +------+ + | Care Crm Architect Name | Role | Phone | [...] | 2018 | on | Center at [facility] [address] | | | | | | [address] | | | | | | Mailcode: Center | | | | | | for Health and | | | | | | Healing, Building 2 | | | | | | [place], [place] | | | | | | [address] | | | | | | [phone] | | | +--------+ + + + [...] Rd | | | | | | [place], [place] | | | | | | [address] | | | | | | [phone] | | | | | | | | +--------+---------+ + + + documented as of this encounter Visit Diagnoses Not on filedocumented in this encounter"
--- OUTSIDE RECORDS SUMMARY | ~2019-09-27 | XMS | Encounter Summary ---
Demographics + + + | Address | [address] | | | [place] [address] | + + + | Home Phone [...] [place] | | | | | [address] | | + + + + + Care Team Providers + +------+ + | Care Assistant Reading Teacher Name | Role | Phone | [...] | | | or gangrene | | [facility] for | | | | | | | Health and | | | | | | | Healing, | | | | | | | Building [address] | | | | | | | [place], [place] | | | | | | | [address] | | | | | | | Phone: | | | | | | | [phone] | | | | | | | Fax: | | | | | | | [phone] | + +--------+ + + + + Encounter Details +--------+---------+ + + + | Date | Type | Department | Care Team | Description | +--------+---------+ + + + | 09/07/ | Office | Digestive Health | [address] | S/P laparoscopic | | 2018 | Visit | Center at [facility] 3485 | [address] | sleeve gastrectomy | | | | [address] | [address] [place], | (Primary Dx); Morbid | | | | Mailcode: [place] | [place] [address] | obesity with BMI of | | | | for Health and | | 40.0-44.9, adult | | | | Healing, Building 2 | | ([facility]); Borderline | | | | [place], [place] | | diabetes | | | | [address] | | | | | | [phone] | | | +--------+---------+ + + + [...] of visit: 1:03 to 1:28 (25 minutes ayqe-ym-eqct with patient) Surgery: Sleeve Gastrectomy Date of [...] choices: Water, Popsicles, Powerade Supplementation: multivitamin - Glentana's, calcium with vitamin D - Citracal Petites [...] multivitamin & mineral (with iron) supplement, 2/day -5796-8458 mg calcium citrate with vitamin D/day (take [...] month post-op [address]tna Alves RD, CNSC, LD [facility] [phone] documented in this enco unter Plan of Treatment +--------+---------+ + + + | Date | Type | Specialty | Care Team | Description | +--------+---------+ + + + | 10/05/ | Office | Surgery | Shu, | | | 2018 | Visit | | MD Bryson [address] | | | | | | [address] | | | | | | [place], [place] | | | | | | [address] | | | | | | [phone] | | | | | | | | +--------+---------+ + + + documented as of this encounter Procedures + +--------+ + + + | Procedure Name | Priori | Date/Time | Associated Diagnosis | Comments | | | ty | | | | + +--------+ + + + | TX MNT RE-ASSESSMNT | Routin | 09/07/2018 | Morbid obesity | | | X15MIN | e | 3:05 PM | with BMI of | | | | | PST | 40.0-44.9, adult | | | | | | ([facility]) Borderline | | | | | | diabetes S/P | | | | | | laparoscopic sleeve | | | | | | gastrectomy | | + +--------+ + + + documented in this encounter Visit Diagnoses + + | Diagnosis | + + | S/P laparoscopic sleeve gastrectomy - Primary | + + | Morbid obesity with BMI of 40.0-44.9, adult ([facility]) | + + | Borderline diabetes Other abnormal glucose | + + documented in this encounter
--- OUTSIDE RECORDS SUMMARY | ~2019-09-27 | XMS | Encounter Summary ---
Demographics + + + | Address | [address] | | | [place] [address] | + + + | Home Phone [...] [place] | | | | | [address] | | + + + + + Care Team Providers + +------+ + | Care Software Test Technician Name | Role | Phone | [...] cheduled | [facility] at | | | | | | MPV | | | | | | Stay [address] [facility] | | | | | | [address] | | | | | | Mailcode: UHN65 | | | | | | Redd Atkinson | | | | | | [address] [place], [place] | | | | | | [address] | | | | | | [phone] | | | +--------+ + + + [...] perfume, lotions or powder. Remove any nail cuban from at least one fingernail. Do not [...] your procedure. Surgery Check in Locations Admitting [facility] Surgery Check in Time: Someone from your surgeon's office or [facility] will provide you with information regarding [...] it is after office hours, call the [facility] tower switch operator at [phone] and ask them to page your doc [...] Rd | | | | | | [place], [place] | | | | | | [address] | | | | | | [phone] | | | | | | | | +--------+---------+ + + + documented as of this encounter Visit Diagnoses Not on filedocumented in this encounter"
--- OUTSIDE RECORDS SUMMARY | ~2019-09-27 | XMS | Encounter Summary ---
Demographics + + + | Address | [address] | | | [place] [address] | + + + | Home Phone [...] [place] | | | | | [address] | | + + + + + Care Team Providers + +------+ + | Care Installation Helper Name | Role | Phone | [...] | | | 2019 | Event | [facility] | MD [address] [facility] [address] | | | | | Admitting Desk | [facility] | | | | | Located on the 9 | [place], [place] | | | | | [facility] [address] [facility] | [address] | | | | | [facility] [address] | [phone] | | | | | [place], [place] | | | | | | [address] | Austen Wilkinson, | | | | | | OPERATIONAL RISK ANALYST [address] [facility] | | | | | | [facility] | | | | | | [place], [place] | | | | | | [address] | | | | | | [phone] | | | | | | | | +--------+ + + + + Anesthesia Record + + + + + | Procedure Name | Responsible | Anesthesia Start | Anesthesia Stop Time | | | Anesthesiologist | Time | | + + + + + | RECURRENT VENTRAL | Rafi Askew MD | 09/22/19 1158 | 09/22/19 7785 | | HERNIA REPAIR AND | | [...] | | Oral; Cuffed; 09/22/19; 1544 | OPERATIONAL RISK ANALYST | OPERATIONAL RISK ANALYST | +--------+ + + + documented in [...] Rd | | | | | | [place], [place] | | | | | | [address] | | | | | | [phone] | | | | | | | [...]
--- OUTSIDE RECORDS SUMMARY | ~2019-09-27 | XMS | Encounter Summary ---
Demographics + + + | Address | [address] | | | [place] [address] | + + + | Home Phone [...] [place] | | | | | [address] | | + + + + + Care Team Providers + +------+ + | Care Remittance Clerk Name | Role | Phone | [...] + + | 09/22/ | Hospital | [address] | Shu, | | | 2019 - | Encounter | [address] | MD Bryson [address] | | | | | [place], [place] | [address] | | | 09/25/ | | [address] | [place], [place] | | | 2019 | | [phone] | [address] | | | | | | [phone] | | | | | | | [...] e different from the original. [facility] GENERAL SURGERY - GREEN SURGERY TEAM INPATIENT DISCHARGE SUMMARY Author: Shayne Laguerre DNP AGACNP-BC Attending Physician: Bryson Ireland MD PCP: Aleshia Martinez PA-C Admission Date: 09/22/2019 Discharge Date: 09/25/2019 Diagnosis: Recurrent incarcerated incisional ventral hernia. Procedure: 1.Exploratory laparotomy. 2.Excision of prior hernia mesh o4kvumqrip pieces.2.5 hours spent exc ising mesh including [...] WWP Outstanding labs/studies: None Discharging Provider[facility] Attending Physician: MD Shayne Mcdonough [facility] Pager# [phone] 9:06 AM 09/25/2019 Vega colunga in this [...] hours by calling the surgery office at [phone]. After hours, weekends and holidays, you may call the hospital wash oil pump operator helper at [phone] and have the insulation mechanic [place] Team for general surgery paged. Discharge Instr [...] every 4-6 hours. Tylenol: You may use fmqu-aiz-owsabhm (OTC) acetaminophen (Tylenol) for milder pain. Do [...] medications with Hydrocodone such as Vicodin or [place]. It is important to keep track of [...] out a dark red color and becomes sailing master and eventually a straw color. * Wash [...] removal. If you live ou t of [facility], we will plan to talk with your [...] Hilda Chua MD - 09/24/2019 6:38 AM [facility] Green Surgery Admission Date: 09/22/2019 [...] incarcerated incisional hernia s/p repair. -transition from SENIOR INTEGRATION ARCHITECT to orals -continue drain. #low UOP -resolving, saline lock -remove stafford Dispo: likely 3 days total inpatient. HILDA CHUA MD [facility] - 09/23/2019 8:56 AM PSTDEPARTMENT [...] #Recurrent incarcerated incisional hernia s/p repair. -continue SENIOR INTEGRATION ARCHITECT and stafford until tomorrow -continue drain. #low [...] 2018 | Visit | | MD Bryson [address] | | | | | | [address] | | | | | | [place], [place] | | | | | | [address] | | | | | | [phone] | | | | | | | [...] CANDY [place] | [address] | [place] [address] | | | SERVICES, CORE | SHAHLA [...] [facility] | [address] | [place] [address] | | | SERVICES, CORE | PARK [...] | | | LABORATORY | | | EGYPTIAN | | | SERVICES, | | | [...] | + + + + + | [facility] | [address] | [place] [address] | | | NILO, KUSH | PARK [...] | + + + + + | [facility] | [address] | [place] [address] | | | SERVICES, CORE | SHAHLA [...] [place] | [address] | [place], [place] | | | CHARITO POINT OF CARE | [facility] | [address] | | | TESTS | | | [...] + + | CANDY ABDI | [address] [facility] [address] | [place], [place] | | | [facility] OF [facility] | [address] | [address] | | | TESTS | | | [...] [place] | [address] | [place], [place] | | | [facility] [place] OF [place] | [address] | [address] | | | TESTS | | | [...] + + +---+---+---+ | HYDROmorphone 0.5 mg/mL SENIOR INTEGRATION ARCHITECT | Rate/Dos | 09/24/20 | | | | | (ADULT STANDARD DOSE) in 0.9 % | e Verify | 19 7:30 | | | | | NaCl SENIOR INTEGRATION ARCHITECT Dose: 0.5 mg, Lockout | | AM [...] mg | | | | bolus from SENIOR INTEGRATION ARCHITECT (ADULT STANDARD | from | 19 8:00 | | | | | DOSE) 0.2 mg intravenous, EVERY | Same Bag | PM PST | | | | | 10 MINUTES NEEDED, Starting | | | | | | | 09/22/19 at 1611, Until Sun | | | | | | | 09/24/19 at 0723, SENIOR INTEGRATION ARCHITECT clinician | | | | | | | rescue bolus. If exceeding 2 | | | | | | | doses in a rolling 60 minute time | | | | | | | frame, contact provider for SENIOR INTEGRATION ARCHITECT | | | | | | | [...]
--- OUTSIDE RECORDS SUMMARY | ~2019-09-27 | XMS | Encounter Summary ---
Demographics + + + | Address | [address] | | | [place] [address] | + + + | Home Phone [...] [place] | | | | | [address] | | + + + + + Care Team Providers + +------+ + | Care Rug Drying Machine Operator Name | Role | Phone [...] Center at [facility] [address] | MD [address] | | | | | [address] | [place], [place] | | | | | Mailcode: Center | [address] | | | | | for Health and | [phone] | | | | | [place] [address] | | | | | | [place], [place] | | | | | | [address] | | | | | | [phone] | | | +--------+ + + + [...] | | | | | | [place], [place] | | | | | | [address] | | | | | | [phone] | | | | | | | | +--------+---------+ + + + documented as of this encounter Visit Diagnoses Not on [facility] in this encounter"
--- OUTSIDE RECORDS SUMMARY | ~2019-09-27 | XMS | Encounter Summary ---
Demographics + + + | Address | [address] | | | [place] [address] | + + + | Home Phone [...] [place] | | | | | [address] | | + + + + + Care Team Providers + +------+ + | Care Compound Machine Operator Name | Role | Phone [...] | History of | [place], | [place], | | | | | abdominal | [place] | [place] | | | | | surgery | [address] | [address] | | | | | Recurrent | Phone: | Phone: | | | | | ventral | | [phone] | | | | | hernia | Fax: | Fax: | | | | | Abdominal | [phone] | [phone] | | | | | pain, | [...] 2019 | Encounter | Center at [facility] | AGACNP [address] | | | | | [address] | [place], [place] | | | | | Mailcode: Center | [address] | | | | | for Health and | | | | | | [facility] 2 | | | | | | [place], [place] | | | | | | [address] | | | | | | | [...] Rd | | | | | | [place], [place] | | | | | | [address] | | | | | | [phone] | | | | | | | [...]
--- OUTSIDE RECORDS SUMMARY | ~2019-09-27 | XMS | Encounter Summary ---
Demographics + + + | Address | [address] | | | [place] [address] | + + + | Home Phone [...] [place] | | | | | [address] | | + + + + + Care Team Providers + +------+ + | Care Kinesiology Internship Name | Role | Phone | + +------+ + | Aleshia Martinez PA-C | PCP | | + +------+ + Encounter Details +--------+ + + + + | Date | Type | Department | Care Team | Description | +--------+ + + + + | 09/22/ | Procedure | 6A Intra Op [facility] | | | | 2019 | Pass | [facility] | | | | | | Admitting Desk | | | | | | Located on the 9th | | | | | | floor [address] | | | | | | [address] | | | | | | [place], [place] | | | | | | [address] | | | +--------+ + + + [...] Rd | | | | | | [place], [place] | | | | | | [address] | | | | | | [phone] | | | | | | | | +--------+---------+ + + + documented as of this encounter Visit Diagnoses Not on filedocumented in this encounter"
--- OUTSIDE RECORDS SUMMARY | ~2019-09-27 | XMS | Encounter Summary ---
Demographics + + + | Address | [address] | | | [place] [address] | + + + | Home Phone [...] [place] | | | | | [address] | | + + + + + Care Team Providers + +------+ + | Care Applicator Sprayer Name | Role | Phone | + [...] | | | or gangrene | | [facility] | | | | | | | Health and | | | | | | | Healing, | | | | | | | Building [address] | | | | | | | [place], [place] | | | | | | | [address] | | | | | | | Phone: | | | | | | | [phone] | | | | | | | Fax: | | | | | | | [phone] | + +--------+ + + + + Encounter Details +--------+---------+ + + + | Date | Type | Department | Care Team | Description | +--------+---------+ + + + | 09/07/ | Office | Digestive Health | [address] | S/P laparoscopic | | 2018 | Visit | Center at [facility] [address] | [address] | sleeve gastrectomy | | | | [address] | [address] [place], | (Primary Dx); Morbid | | | | Mailcode: [place] | [place] [address] | obesity with BMI of | | | | for Health and | | 40.0-44.9, adult | | | | Healing, Building [address] | | ([facility]); Borderline | | | | [place], [place] | | diabetes | | | | [address] | | | | | | [phone] | | | +--------+---------+ + + + [...] of visit: 1:03 to 1:28 (25 minutes xxny-dm-xyor with patient) Surgery: Sleeve Gastrectomy Date of [...] choices: Water, Popsicles, Powerade Supplementation: multivitamin - Zenia's, calcium with vitamin D - Citracal Petites [...] multivitamin & mineral (with iron) supplement, 2/day -9011-3815 mg calcium citrate with vitamin D/day (take [...] [address]ves RD, CNSC, LD [facility] [phone] documented in this enco unter Plan of Treatment +--------+---------+ + + + | Date | Type | Specialty | Care Team | Description | +--------+---------+ + + + | 10/05/ | Office | Surgery | Shu, | | | 2018 | Visit | | MD Bryson [address] | | | | | | [address] | | | | | | [place], [place] | | | | | | [address] | | | | | | [phone] | | | | | | | | +--------+---------+ + + + documented as of this encounter Procedures + +--------+ + + + | Procedure Name | Priori | Date/Time | Associated Diagnosis | Comments | | | ty | | | | + +--------+ + + + | CT MNT RE-ASSESSMNT | Routin | 09/07/2018 | Morbid obesity | | | X15MIN | e | 3:05 PM | with BMI of | | | | | PST | 40.0-44.9, adult | | | | | | ([facility]) Borderline | | | | [...] Morbid obesity with BMI of 40.0-44.9, adult ([facility]) | + + | Borderline diabetes Other abnormal glucose | + + documented in this encounter
--- OUTSIDE RECORDS SUMMARY | ~2019-09-27 | XMS | Encounter Summary ---
Demographics + + + | Address | [address] | | | [place] [address] | + + + | Home Phone [...] [place] | | | | | [address] | | + + + + + Care Team Providers + +------+ + | Care Mold Yard Supervisor Name | Role | Phone | [...] | Center at [facility] [address] | MD [address] | (05/10/15 CT A/P) | | | | [address] | [place], [place] | | | | | Mailcode: [place] | [address] | | | | | for Health and | [phone] | | | | | [facility] 2 | | | | | | [place], [place] | | | | | | [address] | | | | | | [phone] | | | +--------+ + + + [...] Rd | | | | | | [place], [place] | | | | | | [address] | | | | | | [phone] | | | | | | | | +--------+---------+ + + + documented as of this encounter Visit Diagnoses Not on filedocumented in this encounter"
--- OUTSIDE RECORDS SUMMARY | ~2019-09-27 | XMS | Encounter Summary ---
Demographics + + + | Address | [address] | | | [place] [address] | + + + | Home Phone [...] [place] | | | | | [address] | | + + + + + Care Team Providers + +------+ + | Care Public Information Specialist Name | Role | Phone | [...] 2017 | Encounter | Center at [facility] [address] | MD [address] | Acid reflux | | | | [address] | [place], [place] | | | | | Mailcode: Center | [address] | | | | | for Health and | | | | | | [facility] 2 | | | | | | [place], [place] | | | | | | [address] | | | | | | | [...] Rd | | | | | | [place], [place] | | | | | | [address] | | | | | | [phone] | | | | | | | | +--------+---------+ + + + documented as of this encounter Visit Diagnoses Not on filedocumented in this encounter"
--- OUTSIDE RECORDS SUMMARY | ~2019-09-27 | XMS | Encounter Summary ---
Demographics + + + | Address | [address] | | | [place] [address] | + + + | Home Phone [...] [place] | | | | | [address] | | + + + + + Care Team Providers + +------+ + | Care Gasoline Tester Name | Role | Phone | [...] | | Center at [facility] [address] | [address] | | | | | [address] | [facility] [place] | | | | | Mailcode: Center | [address] | | | | | for Health and | [phone] | | | | | [facility], [address] | | | | | | [place], [place] | | | | | | [address] | | | | | | [phone] | | | +--------+ + + + [...] Rd | | | | | | [place] | | | | | | [address] | | | | | | [phone] | | | | | | | | +--------+---------+ + + + documented as of this encounter Visit Diagnoses Not on filedocumented in this encounter"
--- OUTSIDE RECORDS SUMMARY | ~2019-09-27 | XMS | Encounter Summary ---
Demographics + + + | Address | [address] | | | [place] [address] | + + + | Home Phone [...] [place] | | | | | [address] | | + + + + + Care Team Providers + +------+ + | Care Staff Engineer Name | Role | Phone | [...] | | [address] | Ave [place], [place] | | | | | Mailcode: [place] | [address] | | | | | [facility] and | [phone] | | | | | [place] [address] | | | | | | [place], [place] | | | | | | [address] | | | | | | [phone] | | | +--------+ + + + [...] 2019 | Visit | | MD Bryson [address] | | | | | | [address] | | | | | | [place], [place] | | | | | | [address] | | | | | | [phone] | | | | | | | | +--------+---------+ + + + documented as of this encounter Visit Diagnoses Not on filedocumented in this encounter"
--- OUTSIDE RECORDS SUMMARY | ~2019-09-27 | XMS | Encounter Summary ---
Demographics + + + | Address | [address] | | | [place] [address] | + + + | Home Phone [...] [place] | | | | | [address] | | + + + + + Care Team Providers + +------+ + | Care Information Systems Professor Name | Role | Phone | + +------+ + | No Pcp Per Patient | PCP | Unavailable | + +------+ + Encounter Details +--------+ + + + + | Date | Type | Department | Care Team | Description | +--------+ + + + + | 09/21/ | Abstract | Digestive Health | Clinic, Surgery | | | 2016 | | [place] [facility] [address] | | | | | | [address] | | | | | | Mailcode: [place] | | | | | | [facility] and | | | | | | Healing, [address] | | | | | | [place], [place] | | | | | | [address] | | | | | | [phone] | | | +--------+ + + + [...] Rd | | | | | | [place], [place] | | | | | | [address] | | | | | | [phone] | | | | | | | | +--------+---------+ + + + documented as of this encounter Visit Diagnoses Not on filedocumented in this encounter"
--- OUTSIDE RECORDS SUMMARY | ~2019-09-27 | XMS | Clinical Summary ---
Demographics + + + | Address | [address] | | | [place] [address] | + + + | Home Phone | | + + + | Preferred Language | Unknown | + + + | Marital Status | | + + + | Sikhism Affiliation | CHR | + + + | Race | White | + + + | Ethnic Group | Not or | + + + Author + + + | Author | [facility] | + + + | Organization | [facility] | + + + | Address | Unknown | + + + | Phone | Unavailable | + + + Support + + + + + | Name | Relationship | Address | Phone | + + + + + | Stewart Corbett | ECON | [address] | | | | | [place] | | | | | [address] | | + + + + + Care Team Providers + +------+ + | Care Senior Accounts Payable Clerk Name | Role | Phone | + +------+ + | Aleshia Martinez PA-C | PCP | | + +------+ + Source Comments [facility] is fully live on both EpicCare Ambulatory and EpicCare InPatient.[facility]ly [facility] Allergies + [...] Rd | | | | | | [place], [place] | | | | | | [address] | | | | | | [phone] | | | | | | | [...] - | | | | | | /[address] | | [id number]: Qty: 2 on | | | | | | 245 | | 08/31/2018 by Gildardo Downing | | | | | | | | MD Navin at [facility] | | | | | [...] - | | | | | | /[address] | | [id number]: Qty: 2 on | | | | | | 248 | | 08/31/2018 by Gildardo Downing | | | | | | | | MD Navin at [facility] | | | | | | | | LOC | | | | | | | + +------+--------+ +--------+--------+--------+ | Mesh Surgical Bard [id number] | | N/A: | BARD | | 04/21/ | [id number] | | Hernia Soft Lightweight Low | | Abdome | | | 2023 | 6 / | | Profile Strong Knit | | n | | | | /[id number] | | Construction Monofilament - | | | | | | 141 | | [id number]: Qty: 1 on | | | | | | | | 09/22/2019 by Shu, | | | | | | | | MD Bryson at [facility] | | | | | | | [...] | + + + + + | [facility] | [address] | [place] [address] | | | SERVICES, CORE | SHAHLA [...] | | | LABORATORY | | | PORTUGUESE | | | SERVICES, | | | [...] MDRD equation recommended by the National | [facility] | | Kidney Disease Education Program. Estimated [...] | + + + + + | [facility] | [address] | [place] [address] | | | SERVICES, CORE | PARK [...] [facility]Y [place] | [address] | [place] [address] | | | SERVICES, CORE | SHAHLA [...] | + + + + + | [facility] | [address] | [place] [address] | | | SERVICES, CORE | SHAHLA [...] [place] | [address] | [place], [place] | | | [facility] | [facility] | [address] | | | TESTS | | | [...] ABDI | [address] | [place], [place] | | | [facility] CARE | [address] | [address] | | | TESTS | | | [...] mi | al/Fam | | 1984 | [phone] | [place] [address] | | | pawel | | | 9 (Home) | | + +--------+ +--------+ + + | Miguelangel Caballero | Worker | Self | 08/[birth year] | | [address] | | mi | s Comp | | [phone] | [place] [address] | | | | | | 9 (Home) | | + +--------+ +--------+ + + | Miguelangel Caballero | Worker | Self | [birth year] | | [address] | | mi | s Comp | | 1984 | [phone] | [place] [address] | | | | | | 9 (Home) | | + +--------+ +--------+ + + | Miguelangel Caballero | Worker | Self | [birth year] | | [address] | | mi | s Comp | | 1984 | [phone] | [place] [address] | | | | | | 9 [...]
--- OUTSIDE RECORDS SUMMARY | ~2019-09-27 | XMS | Encounter Summary ---
Demographics + + + | Address | [address] | | | [place] [address] | + + + | Home Phone [...] [place] | | | | | [address] | | + + + + + Care Team Providers + +------+ + | Care Mobile Mechanic Name | Role | Phone | [...] + + | 08/31/ | Hospital | [facility] [address] | Gildardo Downing, | | | 2018 - | Encounter | [address] | [address] | | | | | [place], [place] | [place], [place] | | | 09/02/ | | [address] | [address] | | | 2017 | | [phone] | [phone] | | | | | | | [...] might be differen t from the original. [facility] RED SURGERY INPATIENT DISCHARGE SUMMARY Author: GAUTAM [...] We will have her follow up with [facility] Bariatric Nurse Practitioner in 1 week and [...] or Kefir, [place]oney[place] Yogurt, and Chioban i English Yogurt are common brands with beneficial probiotics. [...] are available over the counter at most [facility] Vari[employer] stores. Nausea/Vomiting/Difficulty Swallowing Nausea/Vomiting/Difficulty swallowing: Could be [...] hours per your instructions. Some medications, like [place], have Tylenol in it. Make sure you [...] (PCP) as this clinic does not provide [facility] chronic pain management services. When to [...] hours by calling the surgery office at [phone]. - After hours, weekends and holidays, you may call the hospital logging shovel operator at [phone] an d have the ammonia operator Red Surgery Team paged. Destination Home [...] Acute Care Why: follow up with bariatric TUBE FILLER Contact information [address] [facility] [address] [address] Future Appointments Provider Department Dept Phone Center 09/07/2018 10:00 AM Chetna Alves [facility] at [facility] 6th Floor [phone] KATIA D AND NUT 09/07/2018 10:50 AM Emily Martinez Digestive [facility] at [facility] 6th Floor [phone] D ig Health 09/29/2018 10:30 AM Tea [facility] at [facility] 6th Floor [phone] F OOD AND NUT 09/29/2018 11:20 AM Gildardo Downing Digestive [facility] at [facility] 6th Floor [phone] Di g Health 11/25/2018 10:00 [facility] at [facility] 6th Floor [phone] FO OD AND NUT 11/25/2018 10:50 AM Shanon Etienne Digestive [facility] at [facility] 6th Floor [phone] Dig [facility] Discharging Physician: GAUTAM Leblanc Attending Physician: Gildardo Downing MD [facility] Red Surgery Pager# [phone] 10:42 AM 09/02/2018 documented in th is [...] [facility] Division of Bariatric Surgery [facility] | [address] | [place], [place] | [address] | Ludwin Tellez MD - 08/31/2018 8:54 [...] Ludwin Tellez MD General Surgery, PGY1 Pager: [phone] documented in this en counter Plan of Treatment +--------+---------+ + + + | Date | Type | Specialty | Care Team | Description | +--------+---------+ + + + | 10/05/ | Office | Surgery | Shu, | | | 2018 | Visit | | MD Bryson [address] | | | | | | [address] | | | | | | [place], [place] | | | | | | [address] | | | | | | [phone] | | | | | | | [...] + | [facility] | [address] | [place], [place] | | | CARDIOLOGY | [address] | [address] | | + + + + + [...] MARQUAM | [address] | [place], [place] | | | [facility] | [address] | [address] | | | TESTS | | | [...] (H) | 60 - 99 mg/dL | [facility] - | | | GLUCOSE, | [...] ABDI | [address] | [place], [place] | | | [facility] | [address] | [address] | | | TESTS | | | [...] SURGEON: Gildardo Downing MD. | | | ACCOUNTING SYSTEMS ANALYST: Jamie Gonzales MD R6. ANESTHESIA: Ke Strong [...] Downing MD, FACS, [facility] Bariatric Surgery | | | | | [...] SURGEON: Gildardo Downing MD. | | | ACCOUNTING SYSTEMS ANALYST: Jamie Gonzales MD R6. ANESTHESIA: Ke Strong [...] | | | Gildardo Downing MD, [facility] | | | | | + + + CAPILLARY BLOOD GLUCOSE (NO CHG), POC (08/31/2018 11:23 AM PST) + +-------+ + + + | Component | Value | Ref Range | Performed | Pathologist | | | | | At | Signature | + +-------+ + + + | BLOOD | 75 | 60 - 99 mg/dL | [facility] - | | | GLUCOSE, | [...] ABDI | [address] | [place], [place] | | | [facility] | [address] | [address] | | | TESTS | | | [...] | | | | | | | [facility] 09/01/18 at 1300 | | | | [...] | | | First dose on [facility] 09/01/18 at 0900 | | | [...] | | | | | | | [facility] 09/01/18 at 1300 | | | | [...] | | | | | 2045, Until [facility] 09/01/18 at 0611, | | | | [...] | | | | dose on [facility] 09/01/18 at 0900, | | AM [...] | | | | dose on [facility] 09/01/18 at 0900, | | AM [...] | | | | dose on [facility] 09/01/18 at 0900 | | | | | | + +-------+ +--------+---+---+ +---+---+ | | | +---+---+ documented in this encounter
--- OUTSIDE RECORDS SUMMARY | ~2019-09-27 | XMS | Encounter Summary ---
Demographics + + + | Address | [address] | | | [place] [address] | + + + | Home Phone [...] [place] | | | | | [address] | | + + + + + Care Team Providers + +------+ + | Care Leadership Program Internship Name | Role | Phone | [...] | | 2019 | | Center at [facility] [address] | MD [address] | | | | | [address] | [place], [place] | | | | | Mailcode: [place] | [address] | | | | | for Health and | | | | | | [facility] [address] | | | | | | [place], [place] | | | | | | [address] | | | | | | | [...] [place] | | | | | | [address] | | | | | | [phone] | | | | | | | | +--------+---------+ + + + documented as of this encounter Visit Diagnoses Not on filedocumented in this encounter"
--- OUTSIDE RECORDS SUMMARY | 2019-09-27 12:04 | XMS ---
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 EAnila VISIT COUNT (12 MO.) [address] [place] [address] TOTAL 4 NOTE: Visits indicate total known visits. ED/UCC VISIT TRACKING (12 MO.) 09/27/2019 12:02 [facility] [place] TYPE: Emergency COMPLAINT: - SOB 09/13/2019 12:51 [facility] [place] TYPE: Emergency COMPLAINT: - ABD PAIN/HERNIA DIAGNOSES: - Latex allergy status - Radiographic dye allergy status - Other care home (current) drug therapy - Other nonmedicinal substance allergy status - Unspecified abdominal pain - Allergy status to oth drug/meds/biol subst status - Overexertion from strenuous movement or load, init - Essential (primary) hypertension - Strain of muscle, fascia and tendon of abdomen, init encntr 02/23/2019 02:32 [facility] TYPE: Emergency COMPLAINT: - R FOOT PAIN/NO INJURY DIAGNOSES: - Pain in right foot - Radiographic dye allergy status - Latex allergy status - Allergy status to oth drug/meds/biol subst status - Essential (primary) hypertension - Other terminal make up operator (current) drug therapy 01/29/2019 18:44 [facility] TYPE: Emergency COMPLAINT: - URINE PROBLEM DIAGNOSES: - Low back pain - Other nonmedicinal substance allergy status - Other care home (current) drug therapy - Frequency of micturition - Radiographic dye allergy status - Allergy status to oth drug/meds/biol subst status - Dysuria - Latex allergy status - Nausea - Low back pain - Essential (primary) hypertension - Dysuria INPATIENT VISIT TRACKING (12 MO.) 09/22/2019 09:58 [facility] TYPE: Surgery DIAGNOSES: 77774. PARTIALLY INCARCERATED INCISIONAL HERNIA 76[address]. Other and unsp ventral hernia with obstruction, w/o gangrene [id number]
== END 2019-09-27 12:21 | disposition left against medical advice (07) ==
LOC: ED 12:02
DX: R06.02 Shortness of breath (principal)

== ENCOUNTER 2020-03-18 13:24 | Emergency (ER) | payer BC ==
[~2020-03-18] VITALS: Ht 167.6 cm; Wt 77.1 kg
--- OUTSIDE RECORDS SUMMARY | ~2020-03-18 | XMS | Encounter Summary ---
Demographics + + + | Address | [address] | | | [place] [address] | + + + | Home Phone | | + + + | Preferred Language | Unknown | + + + | Marital Status | | + + + | Mormon Affiliation | CHR | + + + [...] [place] | | | | | [address] | | + + + + + Care Team Providers + +------+ + | Care Blanching Machine Operator Name | Role | Phone | + +------+ + | Aleshia Martinez PA-C | PCP | | + +------+ + Encounter Details +--------+---------+ + + + | Date | Type | Department | Care Team | Description | +--------+---------+ + + + | 05/30/ | Office | Digestive Health | | Morbid obesity (HCC) | | 2018 | Visit | Center at [facility] [address] | | (Primary Dx) | | | | [address] | | | | | | Mailcode: Center | | | | | | for Health and | | | | | | Healing, [address] | | | | | | [place], [place] | | | | | | [address] | | | | | | [phone] | | | +--------+---------+ + + + [...] + + documented as of this encounter Progress Notes Ana Enriquez RN - 05/30/2018 11:00 AM [facility] Bariatric Pre-Op Class Instructor(s): Ana Enriquez RN Documented Time of Class: 1105 until 1225 (80 minutes [id number]-pb-tujp with patient) Teaching Methods: PowerPoint and verbal presentation with additional written materials and visual aids. Class content included: 1. Pre-Surgery Diet a. Clear liquids only the day before surgery b. NPO at midnight 2. Medications a. Use of Aspirin 7 days prior to surgery b. Use of NSAIDs and other pain medications 7 days prior to surgery 3. Showering or Bathing 4. Smoking 5. Inpatient Hospital Stay a. Destination b. Items to bring to the hospital c. Pre-Surgery ? Discussion regarding indwelling urinary catheters and why they are not routinely used. d. PACU e. 14A ? Emphasis on early and frequent mobility ? Emphasis on fluid goals ? Use of Incentive Spirometer ? Symptom Management ? Discharge Criteria 6. Discharge Planning a. Planning ahead prior to surgery b. Items to buy prior to surgery c. Keeping a journal with fluid/protein d. Transportation 7. [place] for Successful Weight Loss Surgery 8. Surgical Consent 9. Reseach Consent 10. Nutrition Refresher a. Protein b. Fluids c. Vitamins d. Diet Progression Assessment: Pt remained attentive throughout the class and/or participated by asking questi ons or sharing information. Yes documented in this encounter Plan of Treatment Not on filedocumented as of this encounter Visit Diagnoses + + | Diagnosis | + + | Morbid obesity (HCC) - Primary Morbid obesity | + + documented in this encounter"
--- OUTSIDE RECORDS SUMMARY | ~2020-03-18 | XMS | Encounter Summary ---
Demographics + + + | Address | [address] | | | [place] [address] | + + + | Home Phone | | + + + | Preferred Language | Unknown | + + + | Marital Status | | + + + | Mormonism Affiliation | CHR | + + + | Race | White | + + + | Ethnic Group | Not or | + + + Author + + + | Author | [facility] | + + + | Organization | [facility] | + + + | Address | Unknown | + + + | Phone | Unavailable | + + + Support + + + + + | Name | Relationship | Address | Phone | + + + + + | Stewart Corbett | ECON | [address] | | | | | [place] | | | | | [address] | | + + + + + Care Team Providers + +------+ + | Care Pressroom Supervisor Name | Role | Phone | + +------+ + | Aleshia Martinez PA-C | PCP | | + +------+ + Encounter Details +--------+ + + + + | Date | Type | Department | Care Team | Description | +--------+ + + + + | 06/22/ | Telephone | Digestive Health | Gildardo Downing, | | | 2017 | | Center at [facility] [address] | [address] | | | | | [address] | [place], [place] | | | | | Mailcode: Center | [address] | | | | | for Health and | [phone] | | | | | [facility], [address] | | | | | | [place], [place] | | | | | | [address] | | | | | | [phone] | | | +--------+ + + + [...]
--- OUTSIDE RECORDS SUMMARY | ~2020-03-18 | XMS | Encounter Summary ---
Demographics + + + | Address | [address] | | | [place] [address] | + + + | Home Phone | | + + + | Preferred Language | Unknown | + + + | Marital Status | | + + + | Anglican Affiliation | CHR | + + + [...] [place] | | | | | [address] | | + + + + + Care Team Providers + +------+ + | Care Store Keeper Name | Role | Phone | + +------+ + | Aleshia Martinez PA-C | PCP | | + +------+ + Encounter Details +--------+ + + + + | Date | Type | Department | Care Team | Description | +--------+ + + + + | 06/28/ | MyChart | Digestive Health | Clinic, Surgery | Denial from | | 2018 | Encounter | Center at [facility] [address] | | insurance plan for | | | | [address] | | surgery | | | | Mailcode: Center | | | | | | for Health and | | | | | | Healing, [address] | | | | | | [place], [place] | | | | | | [address] | | | | | | [phone] | | | +--------+ + + + [...]
--- OUTSIDE RECORDS SUMMARY | ~2020-03-18 | XMS | Encounter Summary ---
Demographics + + + | Address | [address] | | | [place] [address] | + + + | Home Phone | | + + + | Preferred Language | Unknown | + + + | Marital Status | | + + + | Jainism Affiliation | CHR | + + + | Race | White | + + + | Ethnic Group | Not or | + + + Author + + + | Author | [facility] | + + + | Organization | [facility] | + + + | Address | Unknown | + + + | Phone | Unavailable | + + + Support + + + + + | Name | Relationship | Address | Phone | + + + + + | Stewart Corbett | ECON | [address] | | | | | [place] | | | | | [address] | | + + + + + Care Team Providers + +------+ + | Care Cisco Administrator Name | Role | Phone | + +------+ + | Aleshia Martinez PA-C | PCP | | + +------+ + Encounter Details +--------+ + + + + | Date | Type | Department | Care Team | Description | +--------+ + + + + | 03/16/ | MyChart | Digestive Health | Marta Simmons, | RE: Lab work | | 2019 | Encounter | Center at [facility] [address] | AGACNP [address] | | | | | [address] | Ave [place], [place] | | | | | Mailcode: Center | [address] | | | | | for Health and | [phone] | | | | | Healing, [address] | | | | | | [place], [place] | | | | | | [address] | | | | | | [phone] | | | +--------+ + + + [...] as of this encounter Plan of Treatment + +------+--------+ + + | Name | Type | Priori | Associated Diagnoses | Order Schedule | | | | ty | | | + +------+--------+ + + | CBC ONLY | Lab | Routin | Abnormal | Expected: 03/28/2019 | | | | e | intestinal | (Approximate), | | | | | absorption Vitamin | Expires: 04/27/2020 | | | | | D deficiency S/P | | | | | | laparoscopic sleeve | | | | | | gastrectomy | | + +------+--------+ + + | COMPLETE METABOLIC | Lab | Routin | Abnormal | Expected: 03/28/2019 | | SET | | e | intestinal | (Approximate), | | (NA,K,CL,CO2,BUN,CRE | | | absorption Vitamin | Expires: 04/27/2020 | | AT,GLUC,CA,AST,ALT,B | | | D deficiency S/P | | | SHRUTHI TOTAL,ALK | | | laparoscopic sleeve | | | PHOS,ALB,PROT TOTAL) | | | gastrectomy | | + +------+--------+ + + | FERRITIN | Lab | Routin | Abnormal | Expected: 03/28/2019 | | | | e | intestinal | (Approximate), | | | | | absorption Vitamin | Expires: 04/27/2020 | | | | | D deficiency S/P | | | | | | laparoscopic sleeve | | | | | | gastrectomy | | + +------+--------+ + + | HOMOCYSTEINE TOTAL, | Lab | Routin | Abnormal | Expected: 03/28/2019 | | PLASMA | | e | intestinal | (Approximate), | | | | | absorption Vitamin | Expires: 04/27/2020 | | | | | D deficiency S/P | | | | | | laparoscopic sleeve | | | | | | gastrectomy | | + +------+--------+ + + | IRON AND TIBC | Lab | Routin | Abnormal | Expected: 03/28/2019 | | | | e | intestinal | (Approximate), | | | | | absorption Vitamin | Expires: 04/27/2020 | | | | | D deficiency S/P | | | | | | laparoscopic sleeve | | | | | | gastrectomy | | + +------+--------+ + + | METHYLMALONIC ACID, | Lab | Routin | Abnormal | Expected: 03/28/2019 | | SERUM | | e | intestinal | (Approximate), | | | | | absorption Vitamin | Expires: 04/27/2020 | | | | | D deficiency S/P | | | | | | laparoscopic sleeve | | | | | | gastrectomy | | + +------+--------+ + + | PTH, SERUM | Lab | Routin | Abnormal | Expected: 03/28/2019 | | | | e | intestinal | (Approximate), | | | | | absorption Vitamin | Expires: 04/27/2020 | | | | | D deficiency S/P | | | | | | laparoscopic sleeve | | | | | | gastrectomy | | + +------+--------+ + + | VITAMIN B1, WHOLE | Lab | Routin | Abnormal | Expected: 03/28/2019 | | BLOOD | | e | intestinal | (Approximate), | | | | | absorption Vitamin | Expires: 04/27/2020 | | | | | D deficiency S/P | | | | | | laparoscopic sleeve | | | | | | gastrectomy | | + +------+--------+ + + | VITAMIN B-12 | Lab | Routin | Abnormal | Expected: 03/28/2019 | | | | e | intestinal | (Approximate), | | | | | absorption Vitamin | Expires: 04/27/2020 | | | | | D deficiency S/P | | | | | | laparoscopic sleeve | | | | | | gastrectomy | | + +------+--------+ + + | VITAMIN D, | Lab | Routin | Abnormal | Expected: 03/28/2019 | | 25-HYDROXY, SERUM | | e | intestinal | (Approximate), | | | | | absorption Vitamin | Expires: 04/27/2020 | | | | | D deficiency S/P | | | | | | laparoscopic sleeve | | | | | | gastrectomy | | + +------+--------+ + + documented as of this encounter Visit Diagnoses + + | Diagnosis | + + | S/P laparoscopic sleeve gastrectomy - Primary | + + | Abnormal intestinal absorption Unspecified intestinal malabsorption | + + | Vitamin D deficiency | + + documented in this encounter"
--- OUTSIDE RECORDS SUMMARY | ~2020-03-18 | XMS | Encounter Summary ---
Demographics + + + | Address | [address] | | | [place] [address] | + + + | Home Phone | | + + + | Preferred Language | Unknown | + + + | Marital Status | | + + + | Roman Catholic Affiliation | CHR | + + + | Race | White | + + + | Ethnic Group | Not or | + + + Author + + + | Author | [facility] | + + + | Organization | [facility] | + + + | Address | Unknown | + + + | Phone | Unavailable | + + + Support + + + + + | Name | Relationship | Address | Phone | + + + + + | Stewart Corbett | ECON | [address] | | | | | [place] | | | | | [address] | | + + + + + Care Team Providers + +------+ + | Care Disability Insurance Claim Examiner Name | Role | Phone | + +------+ + | Aleshia Martinez PA-C | PCP | | + +------+ + Reason for Referral Physical Therapy (Routine) +--------+--------+ + + + + | Status | Reason | Specialty | Diagnoses / | Referred By | Referred To | | | | | Procedures | Contact | Contact | +--------+--------+ + + + + | Closed | | Physical | Diagnoses | Iris, | Erinn Pt Chh1 | | | | Therapy | Morbid | Marta W, | [address] | | | | | obesity | AGACNP [address] | | | | | ([facility]) | [address] | Mailcode: | | | | | Procedures | Monica | [address] | | | | | PHYSICAL | [place] | for Health | | | | | THERAPY | [address] | and Healing, | | | | | REFERRAL | Phone: | Building 1, | | | | | | | 1St Floor | | | | | | Fax: | [place], [place] | | | | | | [phone] | [address] | | | | | | | Phone: | | | | | | | [phone] | | | | | | | Fax: | | | | | | | [phone] | +--------+--------+ + + + + Encounter Details +--------+ + + + + | Date | Type | Department | Care Team | Description | +--------+ + + + + | 10/27/ | Specimen Transporter | Digestive Health | Marta Simmons, | Morbid obesity (HCC) | | 2018 | | Center at [facility] [address] | AGACNP [address] | (Primary Dx) | | | | [address] | Ave [place], [place] | | | | | Mailcode: Center | [address] | | | | | for Health and | | | | | | Healing, Building 2 | | | | | | [place], [place] | | | | | | [address] | | | | | | [phone] | | | +--------+ + + + [...]
--- OUTSIDE RECORDS SUMMARY | ~2020-03-18 | XMS | Encounter Summary ---
Demographics + + + | Address | [address] | | | [place] [address] | + + + | Home Phone | | + + + | Preferred Language | Unknown | + + + | Marital Status | | + + + | Advent Affiliation | CHR | + + + | Race | White | + + + | Ethnic Group | Not or | + + + Author + + + | Author | [facility] | + + + | Organization | [facility] | + + + | Address | Unknown | + + + | Phone | Unavailable | + + + Support + + + + + | Name | Relationship | Address | Phone | + + + + + | Stewart Corbett | ECON | [address] | | | | | [place] | | | | | [address] | | + + + + + Care Team Providers + +------+ + | Care Public Health Dentist Name | Role | Phone | + +------+ + | Aleshia Martinez PA-C | PCP | | + +------+ + Encounter Details +--------+ + + + + | Date | Type | Department | Care Team | Description | +--------+ + + + + | 07/12/ | Abstract | Digestive Health | Clinic, Surgery | | | 2017 | | [place] [facility] [address] | | | | | | [address] | | | | | | Mailcode: [place] | | | | | | for Health and | | | | | | Healing, Building 2 | | | | | | [place], [place] | | | | | | [address] | | | | | | [phone] | | | +--------+ + + + [...]
--- OUTSIDE RECORDS SUMMARY | ~2020-03-18 | XMS | Encounter Summary ---
Demographics + + + | Address | [address] | | | [place] [address] | + + + | Home Phone | | + + + | Preferred Language | Unknown | + + + | Marital Status | | + + + | Episcopalian Affiliation | CHR | + + + [...] [place] | | | | | [address] | | + + + + + Care Team Providers + +------+ + | Care Inflated Ball Molder Name | Role | Phone | + [...]
--- OUTSIDE RECORDS SUMMARY | ~2020-03-18 | XMS | Encounter Summary ---
Demographics + + + | Address | [address] | | | [place] [address] | + + + | Home Phone | | + + + | Preferred Language | Unknown | + + + | Marital Status | | + + + | Faith Affiliation | CHR | + + + [...] [place] | | | | | [address] | | + + + + + Care Team Providers + +------+ + | Care Clerk Telegraph Service Name | Role | Phone | + +------+ + | No Pcp Per Patient | PCP | Unavailable | + +------+ + Encounter Details +--------+ + + + + | Date | Type | Department | Care Team | Description | +--------+ + + + + | 07/28/ | MyChart | Digestive Health | Shu | RE: Surgery for the | | 2019 | Encounter | [place] at [facility] [address] | MD [address] | hernia | | | | [address] | [address] | | | | | Mailcode: Center | [place], [place] | | | | | for Health and | [address] | | | | | [facility], Building 2 | [phone] | | | | | [place], [place] | | | | | | [address] | | | | | | [phone] | | | +--------+ + + + [...]
--- OUTSIDE RECORDS SUMMARY | ~2020-03-18 | XMS | Encounter Summary ---
Demographics + + + | Address | [address] | | | [place] [address] | + + + | Home Phone [...] + + + | Author | [facility] | + + + | Organization | [facility] | + + + | Address | Unknown | + + + | Phone | Unavailable | + + + Support + + + + + | Name | Relationship | Address | Phone | + + + + + | Stewart Corbett | ECON | [address] | | | | | [place] | | | | | [address] | | + + + + + Care Team Providers + +------+ + | Care Counting Machine Operator Name | Role | Phone [...] | Pain | Diagnoses | Clarke, | Fastener Sewing Machine Operator Psych | | | | Management | Morbid | Yumiko, ACNP | [facility] [address] | | | | | obesity with | [address] | | | | | BMI of | [address] | Mailcode: | | | | | 40.0-44.9, | [place], [place] | 15 Center | | | | | adult (HCC) | [address] | for Health | | | | | Borderline | Phone: | and Healing, | | | | | diabetes | [phone] | Building 1, | | | | | Essential | Fax: | 15th Floor | | | | | hypertension | [phone] | [place], [place] | | | | | Mild | | [address] | | | | | intermittent | | Phone: | | | | | asthma | | [phone] | | | | | without | | Fax: | | | | | complication | | [phone] | | | | | Anxiety | [...] 04/20/ | Office | [facility] | Dylan Abraham, | Morbid obesity with | | 2017 | Visit | [address] | PhD [address] | BMI of 40.0-44.9, | | | | Mailcode: [facility] | [place], [place] | adult ([facility]) (Primary | | | | Center for Health | [address] | Dx); Generalized | | | | and Healing, | [phone] | anxiety disorder; | | | | Building | | Borderline diabetes; | | | | Floor [facility] [place] | | Major depressive | | | | [address] | | disorder, recurrent, | | | | [phone] | | in partial | | | | | | remission ([facility]); | | | | | | Essential [...] Name: Sara Caballero : 1985 Medical Record: [id number] Age:32 y.o. Weight: 278 lbs BMI: 44 Identifying Information: Sara Caballero is a 32 y.o. female who lives with her emily band, and her cousin and the cousin's 4 children in [place], [place]. She was referred for psy chological [...] yle. 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 For enjoyment the patient does craft s, [...] increase her activity. Psychological testing: PHQ-9= 1 CJ= 2 RSE= 14 Interpretation of Testing: The [...] Hypertension 6. Ventral hernia RECOMMENDATIONS: 1. Sara Caballero appears from a psychological perspective [...] to improve her consistency with following the claim rep's recommendations, especially eating more consistently throughout the day. 4. She should continue her current walking and pool exercise routines. 5. She is urged to participate in a Bariatric Surgery Support Group. Total time I spent was approximately 50 minutes fzjz-sm-iuam with the patient and approxima tely 1 hour 50 minutes of voa-uovh-eo-face testing, interpreting and synthesizing results. Dylan Abraham, PhD [facility] [address] F[address] [facility] Mail Code: [address] [address] documented in this en counter Plan of Treatment Not on filedocumented as of this encounter Visit Diagnoses + + | Diagnosis | + + | Morbid obesity with BMI of 40.0-44.9, adult ([facility]) - Primary | + + | Generalized anxiety disorder | + + | Borderline diabetes Other abnormal glucose | + + | Major depressive disorder, recurrent, in partial remission ([facility]) Major depressive | | disorder, recurrent episode, in partial or unspecified remission | + + | Essential hypertension | + + | Ventral hernia with obstruction and without gangrene Ventral hernia, unspecified, | | with obstruction | + + documented in this encounter"
--- OUTSIDE RECORDS SUMMARY | ~2020-03-18 | XMS | Encounter Summary ---
Demographics + + + | Address | [address] | | | [place] [address] | + + + | Home Phone [...] [place] | | | | | [address] | | + + + + + Care Team Providers + +------+ + | Care Content Analyst Name | Role | Phone | [...] Center at [facility] [address] | ACNP [address] | consultation | | | | [address] | Ave [place], [place] | (Bariatric | | | | Mailcode: Center | [address] | questionnaire) | | | | for Health and | [phone] | | | | | [facility] 2 | | | | | | [place], [place] | | | | | | [address] | | | | | | [phone] | | | +--------+ + + + [...]
--- OUTSIDE RECORDS SUMMARY | ~2020-03-18 | XMS | Encounter Summary ---
Demographics + + + | Address | [address] | | | [place] [address] | + + + | Home Phone | | + + + | Preferred Language | Unknown | + + + | Marital Status | | + + + | Baptist Affiliation | CHR | + + + | Race | White | + + + | Ethnic Group | Not or | + + + Author + + + | Author | [facility] | + + + | Organization | [facility] | + + + | Address | Unknown | + + + | Phone | Unavailable | + + + Support + + + + + | Name | Relationship | Address | Phone | + + + + + | Stewart Corbett | ECON | [address] | | | | | [place] | | | | | [address] | | + + + + + Care Team Providers + +------+ + | Care Box Spring Upholsterer Name | Role | Phone | + [...] | +--------+ + + + + | 12/04/ | Telephone | Digestive Health | Shu, | Sulma Request | | 2019 | | [place] at [facility] [address] | MD [address] | | | | | [address] | [address] | | | | | Mailcode: Center | [place], [place] | | | | | for Health and | [address] | | | | | [place] [address] | [phone] | | | | | [place], [place] | | | | | | [address] | | | | | | [phone] | | | +--------+ + + + [...] physical, mental, or emotional | No | 09/25/2019 | | condition, do you have serious difficulty | | | | doing errands alone such as visiting the | | | | doctor? | | | + + + + + + + + | Cognitive Status | Response | Date of Assessment | + + + + | Because of a physical, mental, or emotional | No | 09/25/2019 | | condition, do you have serious difficulty | | | | concentrating, remembering, or making | | | | decisions? (5 years old or older) | | | + + + + documented as of this encounter Plan of Treatment Not on filedocumented as of this encounter Visit Diagnoses Not on filedocumented in this encounter"
--- OUTSIDE RECORDS SUMMARY | ~2020-03-18 | XMS | Encounter Summary ---
Demographics + + + | Address | [address] | | | [place] [address] | + + + | Home Phone | | + + + | Preferred Language | Unknown | + + + | Marital Status | | + + + | Bahai Affiliation | CHR | + + + [...] [place] | | | | | [address] | | + + + + + Care Team Providers + +------+ + | Care Car Cooper Name | Role | Phone | + +------+ + | Aleshia Martinez PA-C | PCP | | + +------+ + Encounter Details +--------+ + + + + | Date | Type | Department | Care Team | Description | +--------+ + + + + | 02/25/ | Telephone | Digestive Health | Es Rausch W, | | | 2018 | | Center at [facility] [address] | [address] | | | | | [address] | [place], [place] | | | | | Mailcode: Center | [address] | | | | | for Health and | [phone] | | | | | [facility], Building 2 | | | | | | [place], [place] | | | | | | [address] | | | | | | [phone] | | | +--------+ + + + [...]
--- OUTSIDE RECORDS SUMMARY | ~2020-03-18 | XMS | Encounter Summary ---
Demographics + + + | Address | [address] | | | [place] [address] | + + + | Home Phone | | + + + | Preferred Language | Unknown | + + + | Marital Status | | + + + | Yazidism Affiliation | CHR | + + + [...] [place] | | | | | [address] | | + + + + + Care Team Providers + +------+ + | Care Director Digital Name | Role | Phone | + +------+ + | Aleshia Martinez PA-C | PCP | | + +------+ + Encounter Details +--------+------+ + + + | Date | Type | Department | Care Team | Description | +--------+------+ + + + | 01/06/ | Lab | Laboratory at [facility] | | Morbid obesity with | | 2017 | | [address] | | BMI of 40.0-44.9, | | | | [place], [place] | | adult (HCC); | | | | [address] | | Borderline diabetes; | | | | [phone] | | Essential | | | | [...] | + +--------+ + + + | CBC (HEMOGRAM) ONLY | Routin | 01/06/2018 | Morbid obesity | Results for this | | | e | 4:48 PM | with BMI of | procedure are in the | | | | PDT | 40.0-44.9, adult | results section. | | | | | ([facility]) Borderline | | | | | [...] | + +--------+ + + + | VITAMIN B1, WHOLE | Routin | 01/06/2018 | Morbid obesity | Results for this | | BLOOD | e | 4:48 PM | with BMI of | procedure are in the | | | | PDT | 40.0-44.9, adult | results section. | | | | | (HCC) Borderline | | | | | | [...] | + +--------+ + + + | VITAMIN D, | Routin | 01/06/2018 | Morbid obesity | Results for this | | 25-HYDROXY, SERUM | e | 4:48 PM | with BMI of | procedure are in the | | | | PDT | 40.0-44.9, adult | results section. | | | | | (HCC) Borderline | | | | | | [...] | + +--------+ + + + | COMPLETE METABOLIC | Routin | 01/06/2018 | Morbid obesity | Results for this | | SET | e | 4:48 PM | with BMI of | procedure are in the | | (NA,K,CL,CO2,BUN,CRE | | PDT | 40.0-44.9, adult | results section. | | AT,GLUC,CA,AST,ALT,B | | | (HCC) Borderline | | | SHRUTHI TOTAL,ALK | | | diabetes Essential | | | PHOS,ALB,PROT TOTAL) | | | hypertension Mild | | [...] | + +--------+ + + + | CBC ONLY | Routin | 01/06/2018 | Morbid obesity | Results for this | | | e | 4:48 PM | with BMI of | procedure are in the | | | | PDT | 40.0-44.9, adult | results section. | | | | | (HCC) Borderline | | | | | | [...] | + +--------+ + + + | FERRITIN | Routin | 01/06/2018 | Morbid obesity | Results for this | | | e | 4:48 PM | with BMI of | procedure are in the | | | | PDT | 40.0-44.9, adult | results section. | | | | | (HCC) Borderline | | | | | | [...] | + +--------+ + + + | PTH, SERUM | Routin | 01/06/2018 | Morbid obesity | Results for this | | | e | 4:48 PM | with BMI of | procedure are in the | | | | PDT | 40.0-44.9, adult | results section. | | | | | (HCC) Borderline | | | | | | [...] | + +--------+ + + + | TSH | Routin | 01/06/2018 | Morbid obesity | Results for this | | | e | 4:48 PM | with BMI of | procedure are in the | | | | PDT | 40.0-44.9, adult | results section. | | | | | (HCC) Borderline | | | | | | [...] | + +--------+ + + + | LIPID SET (TRIG, T | Routin | 01/06/2018 | Morbid obesity | Results for this | | CHOL, HDL, CALC LDL) | e | 4:48 PM | with BMI of | procedure are in the | | | | PDT | 40.0-44.9, adult | results section. | | | | | (HCC) Borderline | | | | | | [...] | + +--------+ + + + | VITAMIN B-12 | Routin | 01/06/2018 | Morbid obesity | Results for this | | | e | 4:48 PM | with BMI of | procedure are in the | | | | PDT | 40.0-44.9, adult | results section. | | | | | (HCC) Borderline | | | | | | [...] | + +--------+ + + + | HEMOGLOBIN A1C, | Routin | 01/06/2018 | Morbid obesity | Results for this | | BLOOD | e | 4:48 PM | with BMI of | procedure are in the | | | | PDT | 40.0-44.9, adult | results section. | | | | | (HCC) Borderline | | | | | | [...] | + +--------+ + + + | IRON AND TIBC, SERUM | Routin | 01/06/2018 | Morbid obesity | Results for this | | | e | 4:48 PM | with BMI of | procedure are in the | | | | PDT | 40.0-44.9, adult | results section. | | | | | (HCC) Borderline | | | | | | [...] + + documented in this encounter Results CBC (HEMOGRAM) ONLY (01/06/2018 4:48 PM PDT) + +-------+ + + + | Component | Value | Ref Range | Performed | Pathologist | | | | | At | Signature | + +-------+ + + + | WHITE CELL | 9.16 | 3.50 - 10.80 | [facility] | | | COUNT | | K/cu mm | LABORATORY | | | | | | SERVICES, | | | | | | CORE | | + +-------+ + + + | RED CELL | 4.62 | 4.00 - 5.20 | [facility] | | | COUNT | | M/cu mm | LABORATORY | | | | | | SERVICES, | | | | | | CORE | | + +-------+ + + + | HEMOGLOBIN | 14.5 | 12.0 - 16.0 | [facility] | | | | | g/dL | LABORATORY | | | | | | SERVICES, | | | | | | CORE | | + +-------+ + + + | HEMATOCRIT | 42.2 | 36.0 - 46.0 % | [facility] | | | | | | LABORATORY | | | | | | SERVICES, | | | | | | CORE | | + +-------+ + + + | MCV | 91.3 | 80.0 - 96.0 fL | [facility] | | | | | | LABORATORY | | | | | | SERVICES, | | | | | | CORE | | + +-------+ + + + | MCHC | 34.4 | 33.0 - 35.5 | [facility] | | | | | g/dL | LABORATORY | | | | | | SERVICES, | | | | | | CORE | | + +-------+ + + + | RDW SD | 43.2 | 35.1 - 46.3 fL | [facility] | | | | | | LABORATORY | | | | | | SERVICES, | | | | | | CORE | | + +-------+ + + + | PLATELET | 311 | 150 - 400 K/cu | [facility] | | | COUNT | | mm | LABORATORY | | | | | | SERVICES, | | | | | | CORE | | + +-------+ + + + | MPV | 11.1 | 9.7 - 12.3 fL | [facility] | | | | | | LABORATORY | | | | | | SERVICES, | | | | | | CORE | | + +-------+ + + + | NRBC% | 0.0 | 0.0 - 0.3 % | [facility] | | | | | | LABORATORY | | | | | | SERVICES, | | | | | | CORE | | + +-------+ + + + | NRBC# | 0.00 | 0.00 - 0.02 | [facility] | | | | | K/cu mm | LABORATORY | | | | | [...] + | [facility] | [address] | [place] [address] | | | SERVICES, CORE | [address] | | | + + + + + LIPID SET (TRIG, T [...] | + + + + + | [facility] | [address] | [place] [address] | | | SERVICES, CORE | [address] [...] | [facility] | | considered for monitoring jail glycemic control in patients with: | LABORATORY [...] + + | [facility] | [address] | [place] [address] | | | SERVICES, SPECIAL | [address] [...] | | | | | determined by [facility] | | | | | | [employer] Newsletter. See | | | | | | Compliance Statement B: | | | | | | [employer]/CSPerformed | | | | | | by [employer],[address] | | | | | | Yamil Winter, [facility],[place] | | | | | | [address] | | | | | | [phone].[employer]. | | | | | | [facility], Gerardo Esquivel MD, | | | | | | [...] + + | [facility] | [address] | [place], [place] | | | [facility] | | [address] | | + + + + + [...] | | | LABORATORY | | | AUSTRALIAN | | | SERVICES, | | | [...] reference range change effective 7-17. GFR is | [facility] | | estimated [...] + | [facility] | [address] | [place] [address] | | | SERVICES, CORE | [address] [...] + | [facility] | [address] | [place] [address] | | | NILO, KUSH | [address] | | | + + + + + VITAMIN B-12 (01/06/2018 4:48 PM PDT) + +-------+ + [...] + | [facility] | [address] | [place] [address] | | | SERVICES, CORE | [address] [...] | + + + + + | [facility] | [address] | [place] [address] | | | SERVICES, CORE | [address] [...] + + | [facility] | [address] | [place] [address] | | | SERVICES, CORE | [address] [...] + | [facility] | [address] | [place] [address] | | | SERVICES, CORE | [address] [...] + + + + + | [facility] | [address] | [place] [address] | | | SERVICES, CORE | [address] | | | + + + + + documented in this encounter Visit Diagnoses + + | Diagnosis | + + | Morbid obesity with BMI of 40.0-44.9, adult (HCC) | + + | Borderline diabetes Other [...] female | + + documented in this encounter"
--- OUTSIDE RECORDS SUMMARY | ~2020-03-18 | XMS | Encounter Summary ---
Demographics + + + | Address | [address] | | | [place] [address] | + + + | Home Phone | | + + + | Preferred Language | Unknown | + + + | Marital Status | | + + + | Buddhist Affiliation | CHR | + + + [...] [place] | | | | | [address] | | + + + + + Care Team Providers + +------+ + | Care Manager Basketball Name | Role | Phone | + [...] 2019 | Encounter | Center at [facility] [address] | AGACNP [address] | | | | | [address] | Ave [place], [place] | | | | | Mailcode: Center | [address] | | | | | for Health and | [phone] | | | | | Healing, Building [address] | | | | | | [place], [place] | | | | | | [address] | | | | | | | [...]
--- OUTSIDE RECORDS SUMMARY | ~2020-03-18 | XMS | Encounter Summary ---
Demographics + + + | Address | [address] | | | [place] [address] | + + + | Home Phone | | + + + | Preferred Language | Unknown | + + + | Marital Status | | + + + | Lutheran Affiliation | CHR | + + + | Race | White | + + + | Ethnic Group | Not or | + + + Author + + + | Author | [facility] | + + + | Organization | [facility] | + + + | Address | Unknown | + + + | Phone | Unavailable | + + + Support + + + + + | Name | Relationship | Address | Phone | + + + + + | Stewart Corbett | ECON | [address] | | | | | [place] | | | | | [address] | | + + + + + Care Team Providers + +------+ + | Care Marketing Sales Representative Name | Role | Phone | + +------+ + | Aleshia Martinez PA-C | PCP | | + +------+ + Reason for Visit + + + | Reason | Comments | + + + | Prescription | | + + + Encounter Details +--------+ + + + + | Date | Type | Department | Care Team | Description | +--------+ + + + + | 04/07/ | Telephone | Digestive Health | Es Rausch, | Prescription | | 2018 | | Center at [facility] [address] | MD [address] | | | | | [address] | [place], [place] | | | | | Mailcode: [place] | [address] | | | | | for Health and | [phone] | | | | | [place] [address] | | | | | | [facility] [place] | | | | | | [address] | | | | | | [phone] | | | +--------+ + + + [...]
--- OUTSIDE RECORDS SUMMARY | ~2020-03-18 | XMS | Encounter Summary ---
Demographics + + + | Address | [address] | | | [place] [address] | + + + | Home Phone | | + + + | Preferred Language | Unknown | + + + | Marital Status | | + + + | Nondenominational Affiliation | CHR | + + + [...] [place] | | | | | [address] | | + + + + + Care Team Providers + +------+ + | Care Inspector Hairspring Truing Name | Role | Phone | + [...] | | 2017 | | Center at [facility] [address] | | Bariatric Surgery | | | | [address] | | | | | | Mailcode: Center | | | | | | for Health and | | | | | | [facility], [address] | | | | | | [place], [place] | | | | | | [address] | | | | | | [phone] | | | +--------+ + + + [...]
--- OUTSIDE RECORDS SUMMARY | ~2020-03-18 | XMS | Encounter Summary ---
Demographics + + + | Address | [address] | | | [place] [address] | + + + | Home Phone | | + + + | Preferred Language | Unknown | + + + | Marital Status | | + + + | Alevism Affiliation | CHR | + + + | Race | White | + + + | Ethnic Group | Not or | + + + Author + + + | Author | [facility] | + + + | Organization | [facility] | + + + | Address | Unknown | + + + | Phone | Unavailable | + + + Support + + + + + | Name | Relationship | Address | Phone | + + + + + | Stewart Corbett | ECON | [address] | | | | | [place] | | | | | [address] | | + + + + + Care Team Providers + +------+ + | Care Metal Sander And Finisher Name | Role | Phone | + +------+ + | Aleshia Martinez PA-C | PCP | | + +------+ + Encounter Details +--------+ + + + + | Date | Type | Department | Care Team | Description | +--------+ + + + + | 12/27/ | MyChart | [facility] | Shu | RE: Signed note | | 2020 | Encounter | [facility] at [facility] [address] | [address] | needed | | | | [address] | [address] | | | | | Mailcode: Center | [place], [place] | | | | | for Health and | [address] | | | | | Healing, [address] | [phone] | | | | | [place], [place] | | | | | | [address] | | | | | | [phone] | | | +--------+ + + + [...]
--- OUTSIDE RECORDS SUMMARY | ~2020-03-18 | XMS | Encounter Summary ---
Demographics + + + | Address | [address] | | | [place] [address] | + + + | Home Phone | | + + + | Preferred Language | Unknown | + + + | Marital Status | | + + + | Latter-Day Affiliation | CHR | + + + [...] [place] | | | | | [address] | | + + + + + Care Team Providers + +------+ + | Care Long Winder Tender Name | Role | Phone | + +------+ + | Aleshia Martinez PA-C | PCP | | + +------+ + Encounter Details +--------+ + + + + | Date | Type | Department | Care Team | Description | +--------+ + + + + | 12/12/ | MyChart | [facility] | Shu | RE: Bladder issues | | 2020 | Encounter | [facility] [address] | [address] | | | | | [address] | [address] | | | | | Mailcode: Center | [place], [place] | | | | | for Health and | [address] | | | | | Healing, [address] | [phone] | | | | | [place], [place] | | | | | | [address] | | | | | | [phone] | | | +--------+ + + + [...]
--- OUTSIDE RECORDS SUMMARY | ~2020-03-18 | XMS | Encounter Summary ---
Demographics + + + | Address | [address] | | | [place] [address] | + + + | Home Phone | | + + + | Preferred Language | Unknown | + + + | Marital Status | | + + + | Hindu Affiliation | CHR | + + + [...] [place] | | | | | [address] | | + + + + + Care Team Providers + +------+ + | Care Manager Of Corporate Name | Role | Phone | + +------+ + | Aleshia Martinez PA-C | PCP | | + +------+ + Encounter Details +--------+ + + + + | Date | Type | Department | Care Team | Description | +--------+ + + + + | 10/23/ | MyChart | [facility] | Shu | Return to work | | 2019 | Encounter | [facility] at [facility] | [address] | paperwork | | | | [address] | [address] | | | | | Mailcode: Center | [place], [place] | | | | | for Health and | [address] | | | | | Healing, [address] | [phone] | | | | | [place], [place] | | | | | | [address] | | | | | | [phone] | | | +--------+ + + + [...]
--- OUTSIDE RECORDS SUMMARY | ~2020-03-18 | XMS | Encounter Summary ---
Demographics + + + | Address | [address] | | | [place] [address] | + + + | Home Phone | | + + + | Preferred Language | Unknown | + + + | Marital Status | | + + + | Sabianism Affiliation | CHR | + + + [...] [place] | | | | | [address] | | + + + + + Care Team Providers + +------+ + | Care Real Estate Manager Name | Role | Phone | + +------+ + | No Pcp Per Patient | PCP | Unavailable | + +------+ + Encounter Details +--------+ + + + + | Date | Type | Department | Care Team | Description | +--------+ + + + + | 08/18/ | Abstract | [facility] | Es Rausch W, | | | 2016 | | [place] [facility] [address] | MD [address] | | | | | [address] | [facility] [place] | | | | | Mailcode: [place] | [address] | | | | | for Health and | [phone] | | | | | [facility], [facility] [address] | | | | | | [place], [place] | | | | | | [address] | | | | | | [phone] | | | +--------+ + + + [...]
--- OUTSIDE RECORDS SUMMARY | ~2020-03-18 | XMS | Encounter Summary ---
Demographics + + + | Address | [address] | | | [place] [address] | + + + | Home Phone | | + + + | Preferred Language | Unknown | + + + | Marital Status | | + + + | Jehovah'S Witness Affiliation | CHR | + + + [...] [place] | | | | | [address] | | + + + + + Care Team Providers + +------+ + | Care Pharmacy Clerk Name | Role | Phone | + [...]
--- OUTSIDE RECORDS SUMMARY | ~2020-03-18 | XMS | Encounter Summary ---
Demographics + + + | Address | [address] | | | [place] [address] | + + + | Home Phone [...] [place] | | | | | [address] | | + + + + + Care Team Providers + +------+ + | Care Laser Engineer Name | Role | Phone | [...] | [facility] [address] | [address] | sleeve gastrectomy | | | | [address] [place], | (Primary Dx); | | | | Mailcode: Center | [place] [address] | Vitamin D | | | | for Health and | [phone] | deficiency; | | | | Healing, [address] | | Gastroesophageal | | | | [place], [place] | | reflux disease, | | | | [address] | | esophagitis presence | | | | [phone] | | not specified; | | | [...] before eating anything. 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 Start time 1050, end time 1120. I spent a total of 30 minutes face to face with this patie nt. Over 50% of visit was in counseling. Shanon Etienne, MSN, AG-ACNP, GROCERY TEAM MEMBER Bariatric Surgery Nurse Practitioner [facility] | [address] | [place], [place] | [address] | documented in this enco unter Plan of Treatment Not on filedocumented as [...]
--- OUTSIDE RECORDS SUMMARY | ~2020-03-18 | XMS | Encounter Summary ---
Demographics + + + | Address | [address] | | | [place] [address] | + + + | Home Phone [...] [place] | | | | | [phone] | | + + + + + Care Team Providers + +------+ + | Care Baggage Agent Name | Role | Phone | [...] Description | +--------+---------+ + + + | 08/31/ | Surgery | [id number] | Gildardo Downing, | LAPAROSCOPIC SLEEVE | | 2017 | | [address] | [address] | GASTRECTOMY with EGD | | | | Rd [facility] | [place], [place] | | | | | Hospital Admitting | [address] | | | | | Desk Located on the | [phone] | | | | | 9th floor | | | | | | [place], [place] | | | | | | [address] | | | +--------+---------+ + + + [...] + + + | Blood Pressure | 133/75 | 09/02/2018 1:58 PM | | | | | PST | | + + + + + | Pulse | 60 | 09/02/2018 1:58 PM | | | | | PST | | + + + + + | Temperature | 36.7 C (98.1 F) | 09/02/2018 1:58 PM | | | | | PST | | + + + + + | Respiratory Rate | 16 | 09/02/2018 1:58 PM | | | | | PST | | + + + + + | Oxygen Saturation | 97% | 09/02/2018 1:58 PM | | | | | PST | | + + + + + | Inhaled Oxygen | - | - | | | Concentration | | | | + + + + + | Weight | 119.2 kg (262 lb | 08/31/2018 10:56 AM | | | | 11.2 oz) | PST | | + + + + + | Height | 170.2 cm (5' 7") | 08/31/2018 10:56 AM | | | | | PST | | + + + + + | Body Mass Index | 41.14 | 08/31/2018 10:56 AM | | | | | PST [...] + + documented as of this encounter Discharge Summaries Marta Simmons AGACNP - 09/02/2018 10:42 AM PSTFormatting of this note might be differen t from the original. [facility] INPATIENT DISCHARGE SUMMARY Author: GAUTAM Leblanc Attending Physician: Gildardo Downing MD PCP: Aleshia Martinez PA-C Admission Date: 08/31/2018 Discharge Date: 02 Sep 2018 Diagnoses Patients Hospital Problem List: Active Hospital Problems 1) Morbid obesity with BMI of 40.0-44.9, adult (HCC) 2) Essential hypertension 3) Acute post-operative pain Procedure Lap sleeve gastrectomy 08/31/2018 Brief Hospital Course Sara Caballero is a 33 y.o. woman with a history of morbid obesity, htn. She was ad mitted on 08/31/2018 for the listed procedure. She tolerated the procedure well with no opera tive complications. She recovered briefly in the PACU before being transferred to the brown f or observation. Postoperatively, she was placed on a bariatric clear liquid diet. Overnight she was able to tolerate bariatric clear liquids well. On postoperative day 1, she was tole rating bariatric clear liquids well, thus she was advanced to a bariatric full liquid diets. The patient did experience some muscle spasms when advanced to full liquids. She stayed an additional night for observation. We gave her an antispasmotic regimen (low dose valium and levsin) which did help these symptoms. On POD 2, she was able to swallow clear liquids with out a problem. We will continue monitoring and patient was instructed to reach out if these symptoms worsen. Our bariatric dietitian was consulted and they discussed her postoperative diet instruction s. On day of discharge, her vital signs were stable, tolerating bariatric full liquid diet, pain was well controlled with oral pain medications and was ambulating and voiding without d ifficulty. Thus, she was deemed stable for discharge. Discharge instructions have been revie wed with the patient and all questions have been answered. We will have her follow up with o eva Bariatric Nurse Practitioner in 1 week and her surgeon, Dr. Gildardo Downing MD in approx imately 4 weeks. Medications: Medication List START taking these medications diazePAM 2 mg Tab Commonly known as: VALIUM Take 1 tablet by mouth three times daily. Stop taking if not helpful with spasms hyoscyamine 0.125 mg Tab Commonly known as: LEVSIN Take 1 tablet by mouth every four hours as needed. Indications: muscle spasms oxyCODONE (immediate release) 5 mg Tab Commonly known as: ROXICODONE Take 1-3 tablets by mouth every four hours as needed for moderate pain or severe pain. CHANGE how you take these medications atenolol 25 mg Tab Commonly known as: TENORMIN Take 2 tablets by mouth once daily. Hold for 1 week What changed: medication strength additional instructions ENSKYCE 0.15-0.03 mg Tab Generic drug: desogestrel-ethinyl estradiol Take 1 tablet by mouth once daily. Hold for two weeks after surgery. What changed: additional instructions ibuprofen 200 mg Cap Commonly known as: ADVIL Take 1 capsule by mouth as needed. Hold for 1 week after surgery What changed: medication strength how much to take additional instructions CONTINUE taking these medications acetaminophen 325 mg Tab Commonly known as: TYLENOL Take 2 tablets by mouth every six hours as needed for pain. Cut tablet into small pieces. Do not crush. ALBUTEROL INHL Inhale 2 puffs as needed. cetirizine 10 mg Tab Commonly known as: ZYRTEC Take 10 mg by mouth as needed. Cholecalciferol (Vitamin D3) 5,000 unit Tab Commonly known as: VITAMIN D3 Take 1 tablet by mouth once daily. Indications: Vitamin D Deficiency ergocalciferol 50,000 unit Cap Commonly known as: VITAMIN D2, DRISDOL Take 1 capsule by mouth every seven days. Indications: Vitamin D Deficiency (High Dose Ther apy) fluticasone 50 mcg/actuation Spsn Commonly known as: FLONASE Instill 1 spray into each nostril as needed. glycerin (ADULT) Supp Unwrap and insert 1 suppository rectally once daily as needed (for constipation). ondansetron 8 mg Tab Commonly known as: ZOFRAN Take 8 mg by mouth every twelve hours as needed. ondansetron ODT 4 mg Tbdi Commonly known as: ZOFRAN ODT Dissolve 1 tablet on tongue and swallow every six hours as needed for nausea/vomiting. polyethylene glycol 17 gram/dose Powd Commonly known as: MIRALAX Dissolve 17 g (1 capful) into 4 ounces of liquid and drink once daily as needed for constip ation. PROBIOTIC WITH PREBIOTIC ORAL Take by mouth. sertraline 50 mg Tab Commonly known as: ZOLOFT Take 75 mg by mouth once daily. simethicone chew 80 mg Chew Commonly known as: MYLICON Chew and swallow 1 tablet four times daily as needed for gas/bloating. ursodiol 300 mg Cap Commonly known as: ACTIGALL Take 1 capsule by mouth two times daily. Start taking two weeks after your surgery. STOP taking these medications HYDROcodone-acetaminophen 5-325 mg Tab Commonly known as: NORCO Bariatric Diet a. You will be on FULL liquid diet. Try to take 48-64 ounces daily. Liquids should be of a thin consistency and liquids should be able to be poured from cup to cup. b. Aim for 60-80 grams of protein per day from list of foods listed in your bariatric book or in the handout provided by your dietitian prior to discharge. You will remain on this d iet for 2-3 weeks. Do not advance your diet until you are seen in clinic. c. Patient may take medication tablets < or = to 1.30 cm (0.5 inch, approximately the size of a regular M&M). Otherwise, break the pill into that size. If medication is a capsule, op en capsule. Full Liquid Diet Continue your Full Liquid Diet at home. This includes protein drinks, cream of wheat, yogu rt without fruit and clear liquids. Activity a. Do not do any strenuous exercise until your provider has given you permission to do so. b. Walking will be your main form of physical activity. It is important to move frequently throughout the day, increasing your activity level and walking often. It is important to st art slow, but increase your activity each day. c. Do not drive while on narcotic medications. d. Follow abdominal precautions. Wound Care Keep incision clean and dry. No dressings are needed. You may shower. Please pat incisional area dry. Do not rub the incisions; allow for crust to fall off on its own. No baths, hot tubs or swimming for 2 weeks if laparoscopic and 4 weeks if open surgery. Probiotics Consume 1 tablespoon twice per day of foods containing live active cultures (probiotics) hernandez ch as low fat yogurt or kefir. Marielena's Yogurt or Kefir, [place] Yogurt, and Chioban i Thai Yogurt are common brands with beneficial probiotics. Dehydration Dehydration: It is extremely important for you to stay hydrated. You should be taking in 64 ounces of fluid daily. You should also be urinating at least four times a day. Please monit or and record your daily fluid intake, and report to us immediately if you are not urinating at least four times a day or are experiencing pain with urination. Medication Instructions Medication Instructions: Please cut pills with pill cutter into particles the size of a M&M. Take particles with sma ll amount of sugar-free liquid, pudding or yogurt. If unable to cut, please crush pills. If any of your medications come in capsule form, please open capsule and empty contents into sm all amount of sugar-free liquid or yogurt. Take entire contents via mouth. Vitamins Vitamins: You will begin taking your vitamins after your first 1 week post operative visit with the Nurse Practitioner. If your insurance does not cover vitamins, they are available over the counter at most [facility] [employer] stores. Nausea/Vomiting/Difficulty Swallowing Nausea/Vomiting/Difficulty swallowing: Could be from not ingesting appropriate food/drink, eating too much or too fast. Do not drink with meals, leave at least 30 minutes between eati ng and drinking to decrease overfilling of the stomach. Take nausea medication provided to y ou if you feel nauseated. It is important that you meet your goal of fluid intake (64 ounces /day) Malaise (Feeling tired) Malaise (Feeling tired): It is very normal to feel tired after surgery for the first two we eks. It is important to be active, and you should feel a little bit better each day. Primary Care Provider Follow Up Primary Care Provider Follow Up: a) Primary care follow up is extremely important. You need to make a follow up appointment with your Primary Care Provider in 2 weeks. It is especially important to do so if you are on medications for your blood pressure or for diabetes. At this appointment your provider wi ll review your medications and make the necessary changes--if needed. b) Before your primary care visit, please check your blood sugar and blood pressure regula rly and keep a record of them to show your primary care provider. At your primary care provi lorrie follow up visit, they will use your blood pressure and blood sugar numbers to adjust you r medications as needed. c) Diabetes -- Monitoring your blood sugar during your immediate post operative period i s important. You are at risk for hypoglycemia (low blood sugar), therefore it is important t o monitor your blood sugar levels in the immediate postoperative period and especially when taking medications for your diabetes. Early symptoms of hypoglycemia include: -Confusion. -Dizziness. -Feeling shaky. -Hunger. -Headaches. -Irritability. -Pounding heart; racing pulse. -Pale skin. If you experience any of these symptoms, please check your blood sugar level. If it is lowe r than 75, please eat something to increase your blood glucose and call your primary care pr ovider immediately for further instructions. d) Hypertension --It is important to check your blood pressure before any blood pressure medications a re taken due to your risk for hypotension (low blood pressure). Please check your blood pres sures if you are feeling dizzy or lightheaded, and especially if you notice these symptoms w hile changing from a lying to sitting to standing position. --Symptoms of Low Blood Pressure (hypotension) include: -Dizziness or lightheadeness -Fainting (syncope) -Lack of concentration -Blurred vision -Nausea -Cold, clammy, pale skin -Fatigue -Thirst Constipation Prevention It is very important to avoid constipation and straining while trying to have a bowel movem ent. It is common to experience constipation after your operation and when taking narcotics. Please use laxative medications such Polyethylene glycol (Miralax) or glycerin suppositorie s to assist you with having regular bowel movements. Please work towards having a bowel mov ement every 1-2 days. A hot drink each morning will also help the sphincter to work in pushi ng the stool forward. It is important to stay hydrated, about 45-60 fluid ounces daily, and this will help your bowel function. Pain Instructions It is expected that you will experience pain after your operation, and it is important to h ave you manage your pain to increase your activity, sleep and overall healing. You will have a prescription for pain relief. This should be taken every 3-6 hours per your instructions. Some medications, like Yale, have Tylenol in it. Make sure you do not take more than 4,000 mg of Tylenol or acetaminophen in 24 hours. Pain Tapering Instructions Your pain should slowly and steadily diminish as you heal. If your pain level at the surger y site increases, you should call us. It is normal for increased pain if you are overly acti ve or you decrease your pain medication, but a significant and unexplained increase in pain should be discussed with your surgeon. Pain medication is usually necessary for only 4-5 day s postoperatively. It is important to have a plan for tapering off of pain medication. Con sult your pharmacist to construct a proper tapering schedule. Clinic staff is able to help you develop a tapering schedule as well. Please be aware that if you have chronic pain issue s, or you require pain medication for an extended period of time, you will likely be given i nstructions to follow up with your PCP or a pain management provider. Refill Instructions: Your pain medications should be taken as needed, as prescribed by your healthcare provider. You should plan to taper down your dosing within the first 2-3 days postop. Refills are n ot available outside of clinic hours or on weekends or holidays. Narcotic pain medications require a written prescription and must be signed by a provider and mailed to you or picked up. If you need ongoing pain medication beyond the usual recovery period, you will be direc becky to follow up with your primary care provider (PCP) as this clinic does not provide [facility] chronic pain management services. When to Call the Doctor When to Call the Doctor - If your incision becomes red, swollen, or has any bloody or pus-like drainage. - If you have a fever of 101.5 F or greater or if you have chills. - If you have increased pain, unrelieved by your pain medications. - If you have persistent nausea, vomiting, diarrhea, or no bowel movement for more than 2 d ays after discharge from the hospital. - If you develop any unusual signs or symptoms, including chest pain, shortness of breath, pulmonary embolism, leg swelling, pain or redness that is abnormal for you, and other sympto ms of concern. - If you have any questions or concerns. How to Call the Doctor - You may contact your doctor Wednesday through Wednesday during the daytime hours by calling the surgery office at [phone]. - After hours, weekends and holidays, you may call the hospital dye reel operator at [phone] an d have the rn chronic Red Surgery Team paged. Destination Home Condition Stable Physical Exam General: Alert, oriented, NAD Respiratory: Breathing comfortably Cardiovascular: RRR Abdomen: soft, appropriately tender, non distended, lap incisions sites are without drainag e, surrounding erythema or induration. Extremities: warm, well perfused, no edema noted Vitals on discharge: Ht 1.702 m (5' 7"), Wt 119.2 kg (262 lb 11.2 oz), BP 128/80, Pulse 50, Temperature 37 C (98.6 F), RR 16, SpO2 96%, BMI 41.14 kg/(m^2). Facility age limit for growth percentiles is 18 years. Outstanding labs/studies: None Schedule the following appointment(s) when you get home BIJAL Hutchison. Go on 09/07/2018. Specialty: Nurse Practitioner Acute Care Why: follow up with bariatric DCS ENGINEER Contact information [address] [phone] Future Appointments Provider Department Dept Phone Center 09/07/2018 10:00 AM Chetna Alves [facility] at [facility] 6th Floor [phone] KATIA D AND NUT 09/07/2018 10:50 AM Emily Martinez [facility] at [facility] 6th Floor [phone] D ig Health 09/29/2018 10:30 AM Tea Reece [facility] at [facility] 6th Floor [phone] F OOD AND NUT 09/29/2018 11:20 AM Gildardo Downing Digestive [facility] at [facility] 6th Floor [phone] Di g Health 11/25/2018 10:00 AM Tea Reece [facility] at [facility] 6th Floor [phone] FO OD AND NUT 11/25/2018 10:50 AM Shanon Etienne Dig[facility] at [facility] 6th Floor [phone] Dig Hea [facility] Discharging Physician: GAUTAM Leblanc Attending Physician: Gildardo Downing MD [facility] Red Surgery Pager# [phone] 10:42 AM 09/02/2018 documented in th is encounter Medications at Time of Discharge + + + +---------+ + + | Medication | Sig | Dispensed | Refills | Start | End Date | | | | | | Date | | + + + +---------+ + + | ALBUTEROL INHL | Inhale 2 puffs as | | 0 | | | | | needed. | | | | | + + + +---------+ + + | cetirizine 10 mg | Take 10 mg by mouth | | 0 | | | | oral tablet | as needed. | | | | | + + + +---------+ + + | Cholecalciferol | Take 1 tablet by | 60 | 3 | 01/08/20 | | | (Vitamin D3) | mouth once daily. | tablet | | 18 | | | (VITAMIN D3) 5,000 | Indications: Vitamin | | | | | | unit oral | D Deficiency | | | | | | tabletIndications: | | | | | | | vitamin D deficiency | | | | | | + + + +---------+ + + | fluticasone 50 | Instill 1 spray into | | 0 | | | | mcg/actuation nasal | each nostril as | | | | | | spray,suspension | needed. | | | | | + + + +---------+ + + documented as of this encounter Progress Notes Vel Severino - 09/01/2018 2:43 PM [facility] Admission Date: 08/31/2018 ( LOS: 1 day ) Attending Provider: Gildardo Downing MD Interval History and Events: DWAIN BARRERA. No more nausea or vomiting since PACU. Pain controlled, was able to ambulate the hallway once. Voiding independently. Passed some gas. Complains of full liquids feeling "stuck" and slow to go down the esophagus when taking in full liquids. Exam BP 143/86 | Pulse 60 | Temp 37 C (98.6 F) | RR 16 | Ht 1.702 m (5' 7") | Wt 119.2 kg (2 62 lb 11.2 oz) | SpO2 94% | BMI 41.14 kg/(m^2) General: NAD, alert, laying in bed Respiratory: Unlabored respirations on RA Cardiovascular: RRR Abdomen: obese, soft, appropriately tender to palpation, laparoscopic incisions covered wit h dermabond c/d/i Extremities:WWP, SCDs in place Assessment and Plan: Sara Caballero is a 33 y.o. female s/p laparoscopic sleeve gastrectomy with EGD and omentopexy of the gastric staple line. Recovering appropriately post-op. - FLD - Valium for esophageal spasms. - Pain controlled on PO meds - Lovenox, OOB, IS, SCDs - Likely d/c tomorrow Severino Crowder MS4 General Surgery Associated attestation - Gildardo Downing MD - 09/02/2018 6:59 AM PSTA student assisted wi th documenting this service. I saw the patient and reviewed and verified all information doc umented by the student and made modifications to such information, when appropriate. Having some esophageal spasms with intake and at rest. Trial of benzo vs hyoscyamine to s ee if this helps. Gildardo Downing MD, FACS, [facility] Division of Bariatric Surgery [facility] | [address] | [place], [place] | [address] | Ludwin Tellez MD - 08/31/2018 8:54 PM PSTPost-operative Check 08/31/18 S: Sara Caballero is a 33 y.o. female s/p laparoscopic sleeve gastrectomy with EGD and omentopexy of the gastric staple line. Patient's continues to have nausea, not currently relieved with multiple antiemetics. Pain is mildly controlled. Denies SOB or chest pains. O: Last Vitals: BP 154/104 | Pulse 71 | Temp 36.6 C (97.9 F) | RR 12 | Ht 1.702 m (5' 7") | Wt 119.2 kg (262 lb 11.2 oz) | SpO2 96% | BMI 41.14 kg/(m^2) Physical Examination: General: Alert, sitting up in bed, appears uncomfortable, Lungs: Unlabored respirations on 2L NC CV: Regular, Rate and rhythm Abdomen: Obese, soft, appropriately tender to palpation, laparoscopic incisions covered wit h dermabond c/d/i Extremities: Warm and well perfused, SCDs in place A-P: Sara Caballero is a 33 y.o. female s/p laparoscopic sleeve gastrectomy with EG D and omentopexy of the gastric staple line. Recovering appropriately. #Anti-emetics #Continue routine post-operative care #Continue current pain regimen Ludwin Tellez MD General Surgery, PGY1 Pager: [phone] documented in this en counter Plan of Treatment Not on filedocumented as of this encounter Procedures + +--------+ + + + | Procedure Name | Priori | Date/Time | Associated Diagnosis | Comments | | | ty | | | | + +--------+ + + + | 12 LEAD ECG | Routin | 09/02/2018 | | Results for this | | | e | 9:05 AM | | procedure are in the | | | | PST | | results section. | + +--------+ + + + | PROCEDURE NOTE | Routin | 09/01/2018 | | Results for this | | | e | 7:47 PM | | procedure are in the | | | | PST | | results section. | + +--------+ + + + | CARDIOLOGY | | 09/01/2018 | | Results for this | | | | 12:00 AM | | procedure are in the | | | | PST | | results section. | + +--------+ + + + | CAPILLARY BLOOD | Routin | 08/31/2018 | Morbid obesity | Results for this | | GLUCOSE (NO CHG), | e | 2:15 PM | with BMI of | procedure are in the | | POC | | PST | 40.0-44.9, adult | results section. | | | | | (HCC) | | + +--------+ + + + | CAPILLARY BLOOD | Routin | 08/31/2018 | Morbid obesity | Results for this | | GLUCOSE (NO CHG), | e | 1:49 PM | with BMI of | procedure are in the | | POC | | PST | 40.0-44.9, adult | results section. | | | | | (HCC) | | + +--------+ + + + | DIAGNOSTIC UPPER | Routin | 08/31/2018 | | Results for this | | GASTROINTESTINAL | e | 1:46 PM | | procedure are in the | | ENDOSCOPY | | PST | | results section. | + +--------+ + + + | GASTRECTOMY, | Routin | 08/31/2018 | | Results for this | | LAPAROSCOPIC SLEEVE | e | 1:46 PM | | procedure are in the | | | | PST | | results section. | + +--------+ + + + | LAPAROSCOPIC SLEEVE | Electi | 08/31/2018 | Morbid obesity | | | GASTRECTOMY | ve | 12:25 PM | ([facility]) | | | | Surgic | PST | | | | | al | | | | + +--------+ + + + | CAPILLARY BLOOD | Routin | 08/31/2018 | Morbid obesity | Results for this | | GLUCOSE (NO CHG), | e | 11:23 AM | with BMI of | procedure are in the | | POC | | PST | 40.0-44.9, adult | results section. | | | | | (HCC) | | + +--------+ + + + | INTRAPROCEDURE | Routin | 08/31/2018 | | Results for this | | IMAGING | e | 10:38 AM | | procedure are in the | | | | PST | | results section. | + +--------+ + + + | CARDIOLOGY | | 08/31/2018 | | Results for this | | | | 12:00 AM | | procedure are in the | | | | PST | | results section. | + +--------+ + + + | CARDIOLOGY | | 08/31/2018 | | Results for this | | | | 12:00 AM | | procedure are in the | | | | PST | | results section. | + +--------+ + + + | CARDIOLOGY | | 08/31/2018 | | Results for this | | | | 12:00 AM | | procedure are in the | | | | PST | | results section. | + +--------+ + + + | CARDIOLOGY | | 08/31/2018 | | Results for this | | | | 12:00 AM | | procedure are in the | | | | PST | | results section. | + +--------+ + + + | CARDIOLOGY | | 08/31/2018 | | Results for this | | | | 12:00 AM | | procedure are in the | | | | PST | | results section. | + +--------+ + + + documented in this encounter Results 12 LEAD ECG (09/02/2018 9:05 AM PST) + + + + + + | Component | Value | Ref Range | Performed | Pathologist | | | | | At | Signature | + + + + + + | VENTRICULAR | 60 | bpm | [facility] | | | RATE | | | OF | | | | | | CARDIOLOGY | | + + + + + + | ATRIAL RATE | 55 | ms | [facility] | | | | | | OF | | | | | | CARDIOLOGY | | + + + + + + | P-R | 159 | ms | [facility] | | | INTERVAL | | | OF | | | | | | CARDIOLOGY | | + + + + + + | P AXIS | 50 | deg | [facility] | | | | | | OF | | | | | | CARDIOLOGY | | + + + + + + | QRS | 101 | ms | [facility] | | | DURATION | | | OF | | | | | | CARDIOLOGY | | + + + + + + | QT | 456 | ms | [facility] | | | | | | OF | | | | | | CARDIOLOGY | | + + + + + + | KIA-FLOYD | 457 | ms | [facility] | | | | | | OF | | | | | | CARDIOLOGY | | + + + + + + | R AXIS | -40 | deg | [facility] | | | | | | OF | | | | | | CARDIOLOGY | | + + + + + + | T AXIS | 13 | deg | [facility] | | | | | | OF | | | | | | CARDIOLOGY | | + + + + + + | ECG | Sinus rhythm- NORMAL ECG | | [facility] | | | IMPRESSION | - | | OF | | | | | | CARDIOLOGY | | + + + + + + | ECG | Electronically signed | | [facility] | | | IMPRESSION | by: NATHANIEL DE PAZ | | OF | | | | 09-02-2018 11:46:51 | | CARDIOLOGY | | + + [...] | [facility] | [id number] | [place], [place] | | | CARDIOLOGY | [address] | [address] | | + + + + + PROCEDURE NOTE (09/01/2018 7:47 PM PST)CARDIOLOGY (09/01/2018 12:00 AM PST) + + + | Narrative | Performed At | + + + | | | + + + CAPILLARY BLOOD GLUCOSE (NO CHG), POC (08/31/2018 2:15 PM PST) + +---------+ + + + | Component | Value | Ref Range | Performed | Pathologist | | | | | At | Signature | + +---------+ + + + | BLOOD | 138 (H) | 60 - 99 mg/dL | [facility] | | | GLU[facility], | | | [facility] | | | POC | | | [facility] | | | | | | OF CARE | | | | | | TESTS | | + +---------+ + + + + + | Specimen | + + | | + + + + + + + | Performing | Address | City/State/Zipcode | Phone Number | | Organization | | | | + + + + + | [facility] | [address] | [place], [place] | | | [facility] | [address] | [address] | | | TESTS | | | | + + + + + CAPILLARY BLOOD GLUCOSE (NO CHG), POC (08/31/2018 1:49 PM PST) + +---------+ + + + | Component | Value | Ref Range | Performed | Pathologist | | | | | At | Signature | + +---------+ + + + | BLOOD | 140 (H) | 60 - 99 mg/dL | [facility] | | | GLUCO[facility], | | | [facility] | | | POC | | | [facility] | | | | | | OF CARE | | | | | | TESTS | | + +---------+ + + + + + | Specimen | + + | | + + + + + + + | Performing | Address | City/State/Zipcode | Phone Number | | Organization | | | | + + + + + | [facility] | [address] | [place], [place] | | | [facility] | [address] | [address] | | | TESTS | | | | + + + + + DIAGNOSTIC UPPER GASTROINTESTINAL ENDOSCOPY (08/31/2018 1:46 PM PST) + + + | Narrative | Performed At | + + + | Gildardo Downing MD 08/31/2018 1:49 PM DATE OF OPERATION: | | | 08/31/18 PREOPERATIVE DIAGNOSIS: Morbid obesity with a body mass | | | index of 43.6. Weight related comorbidites include: hypertension | | | POSTOPERATIVE DIAGNOSIS: Same as above. PROCEDURE PERFORMED: | | | Laparoscopic sleeve gastrectomy with EGD and omentopexy of the | | | gastric staple line. IV FLUIDS: 800 cc. URINE OUTPUT: NR | | | ESTIMATED BLOOD LOSS: 15cc. SPECIMEN: none IMPLANT: seamguard | | | IV ANTIBIOTICS: 2 g of Cefoxitin. SURGEON: Gildardo Downing MD. | | | PLASTIC CNC MACHINE OPERATOR: Jamie Gonzales MD R6. ANESTHESIA: Ke Strong MD, | | | Miky Garrido MD. PROCEDURE: After informed consent was reviewed, | | | the patient was taken to the operating room and was laid supine on | | | the operating room table. All of the pressure points were padded and | | | sequential compression devices were placed on bilateral lower | | | extremities and were functioning. A surgical time-out was performed. | | | General endotracheal anesthesia was initiated and the patient | | | tolerated this well. The patient was prepped and draped in the | | | normal standard fashion. A 5 mm incision was made in the left upper | | | quadrant. An optical viewing trocar was used to enter the abdomen | | | under direct visualization. Insufflation was started without event, | | | and the abdomen was explored. A sizable low midline incisional | | | hernia was visualized with mesh within the hernia sac. Adhesions | | | to the area were long and thin with insufflation, but 2 loops of | | | small bowel were involved in these adhesions. The remaining | | | adhesions were omental. Pictures were taken for the patient's | | | future hernia repair planning. Two 10 mm trocars were placed, one | | | in the right upper quadrant and one in the left upper quadrant, and | | | a 5 mm trocar was placed in the left upper quadrant, all under | | | direct visualization. A subxiphoid Jose Roberto liver retractor was | | | placed under direct visualization. The stomach was visualized, and | | | the greater curve was mobilized using the Ligasure device. The short | | | gastric vessels were divided proximally to the level of the left | | | martin. The vessels were then divided distally to 4 cm proximal to the | | | pylorus. Any posterior attachments of the stomach were divided | | | using the Ligasure. The endoscope was introduced into the stomach | | | and advanced down to the level of the antrum to be used as a sizing | | | bougie. An Endo-MIN stapler with a green load, 60 mm in length, was | | | placed 4 cm proximal to the pylorus. The endoscope was ensured to | | | be medial to the stapler. The stapler was fired. The remaining | | | staple line was created with the Endo-MIN stapler with gold loads | | | and SeamGuard. The staplers were fired sequentially, just lateral to | | | the endoscope. Prior to each firing of the stapler, the endoscope | | | was moved 1 to 2 cm proximal and distal, to ensure no impingement | | | upon the scope. Any oozing from the staple line was controlled with | | | endoclips with good hemostasis. After the stomach was completely | | | divided from the gastric remnant, all areas were examined for | | | hemostasis. There was no bleeding from the staple line, nor from the | | | splenic area. The gastric remnant was grasped via the left-upper | | | quadrant trocar site and removed through the abdominal wall with | | | mild stretching of the fascia. The endoscope was advanced | | | through the tubularized stomach and into the antrum to ensure the | | | incisura was not narrowed. On endoscopy, there was no bleeding | | | intraluminally. The gastric sleeve was placed under saline, and the | | | stomach was insufflated with the endoscope. There was no evidence of | | | any bubbling or leaking. The endogastric insufflation was removed. | | | The intraabdominal irrigation was removed. Omentum was placed | | | along the staple line to provide coverage of the gastric sleeve. | | | The left-upper quadrant trocar site was irrigated and then closed | | | with an interrupted transfascial 0 vicryl suture. This site was | | | infiltrated with 20cc of local anesthetic. All of the remaining | | | trocar sites were carefully examined and appeared hemostatic. The | | | liver retractor and remaining trocars were removed under direct | | | visualization. The skin was closed with subcuticular 4-0 monocryl | | | sutures and dermabond. The patient tolerated the procedure well and | | | was extubated and transferred to the recovery room in stable | | | condition. The patient will be admitted to the hospital for | | | overnight observation. I was present for the entirety of this case. | | | Gildardo Downing MD, FACS, [facility] Bariatric Surgery | | | | | + + + GASTRECTOMY, LAPAROSCOPIC SLEEVE (08/31/2018 1:46 PM PST) + + + | Narrative | Performed At | + + + | Gildardo Downing MD 08/31/2018 1:49 PM DATE OF OPERATION: | | | 08/31/18 PREOPERATIVE DIAGNOSIS: Morbid obesity with a body mass | | | index of 43.6. Weight related comorbidites include: hypertension | | | POSTOPERATIVE DIAGNOSIS: Same as above. PROCEDURE PERFORMED: | | | Laparoscopic sleeve gastrectomy with EGD and omentopexy of the | | | gastric staple line. IV FLUIDS: 800 cc. URINE OUTPUT: NR | | | ESTIMATED BLOOD LOSS: 15cc. SPECIMEN: none IMPLANT: seamguard | | | IV ANTIBIOTICS: 2 g of Cefoxitin. SURGEON: Gildardo Downing MD. | | | PLASTIC CNC MACHINE OPERATOR: Jamie Gonzales MD R6. ANESTHESIA: Ke Strong MD, | | | Miky Garrido MD. PROCEDURE: After informed consent was reviewed, | | | the patient was taken to the operating room and was laid supine on | | | the operating room table. All of the pressure points were padded and | | | sequential compression devices were placed on bilateral lower | | | extremities and were functioning. A surgical time-out was performed. | | | General endotracheal anesthesia was initiated and the patient | | | tolerated this well. The patient was prepped and draped in the | | | normal standard fashion. A 5 mm incision was made in the left upper | | | quadrant. An optical viewing trocar was used to enter the abdomen | | | under direct visualization. Insufflation was started without event, | | | and the abdomen was explored. A sizable low midline incisional | | | hernia was visualized with mesh within the hernia sac. Adhesions | | | to the area were long and thin with insufflation, but 2 loops of | | | small bowel were involved in these adhesions. The remaining | | | adhesions were omental. Pictures were taken for the patient's | | | future hernia repair planning. Two 10 mm trocars were placed, one | | | in the right upper quadrant and one in the left upper quadrant, and | | | a 5 mm trocar was placed in the left upper quadrant, all under | | | direct visualization. A subxiphoid Jose Roberto liver retractor was | | | placed under direct visualization. The stomach was visualized, and | | | the greater curve was mobilized using the Ligasure device. The short | | | gastric vessels were divided proximally to the level of the left | | | martin. The vessels were then divided distally to 4 cm proximal to the | | | pylorus. Any posterior attachments of the stomach were divided | | | using the Ligasure. The endoscope was introduced into the stomach | | | and advanced down to the level of the antrum to be used as a sizing | | | bougie. An Endo-MIN stapler with a green load, 60 mm in length, was | | | placed 4 cm proximal to the pylorus. The endoscope was ensured to | | | be medial to the stapler. The stapler was fired. The remaining | | | staple line was created with the Endo-MIN stapler with gold loads | | | and SeamGuard. The staplers were fired sequentially, just lateral to | | | the endoscope. Prior to each firing of the stapler, the endoscope | | | was moved 1 to 2 cm proximal and distal, to ensure no impingement | | | upon the scope. Any oozing from the staple line was controlled with | | | endoclips with good hemostasis. After the stomach was completely | | | divided from the gastric remnant, all areas were examined for | | | hemostasis. There was no bleeding from the staple line, nor from the | | | splenic area. The gastric remnant was grasped via the left-upper | | | quadrant trocar site and removed through the abdominal wall with | | | mild stretching of the fascia. The endoscope was advanced | | | through the tubularized stomach and into the antrum to ensure the | | | incisura was not narrowed. On endoscopy, there was no bleeding | | | intraluminally. The gastric sleeve was placed under saline, and the | | | stomach was insufflated with the endoscope. There was no evidence of | | | any bubbling or leaking. The endogastric insufflation was removed. | | | The intraabdominal irrigation was removed. Omentum was placed | | | along the staple line to provide coverage of the gastric sleeve. | | | The left-upper quadrant trocar site was irrigated and then closed | | | with an interrupted transfascial 0 vicryl suture. This site was | | | infiltrated with 20cc of local anesthetic. All of the remaining | | | trocar sites were carefully examined and appeared hemostatic. The | | | liver retractor and remaining trocars were removed under direct | | | visualization. The skin was closed with subcuticular 4-0 monocryl | | | sutures and dermabond. The patient tolerated the procedure well and | | | was extubated and transferred to the recovery room in stable | | | condition. The patient will be admitted to the hospital for | | | overnight observation. I was present for the entirety of this case. | | | Gildardo Downing MD, FACS, [facility] Bariatric Surgery | | | | | + + + CAPILLARY BLOOD GLUCOSE (NO CHG), POC (08/31/2018 11:23 AM PST) + +-------+ + + + | Component | Value | Ref Range | Performed | Pathologist | | | | | At | Signature | + +-------+ + + + | BLOOD | 75 | 60 - 99 mg/dL | [facility] | | | GLU[facility], | | | [facility] | | | POC | | | [facility] | | | | | | OF CARE | | | | | | TESTS | | + +-------+ + + + + + | Specimen | + + | | + + + + + + + | Performing | Address | City/State/Zipcode | Phone Number | | Organization | | | | + + + + + | [facility] | [address] | [place], [place] | | | [facility] | [address] | [address] | | | TESTS | | | | + + + + + INTRAPROCEDURE IMAGING (08/31/2018 10:38 AM PST) + + | Specimen | + + | | + + + + + | Narrative | Performed At | + + + | See admission or procedure notes for details of any intraprocedure | | | images obtained. | | + + + CARDIOLOGY (08/31/2018 12:00 AM PST) + + + | Narrative | Performed At | + + + | | | + + + CARDIOLOGY (08/31/2018 12:00 AM PST) + + + | Narrative | Performed At | + + + | | | + + + CARDIOLOGY (08/31/2018 12:00 AM PST) + + + | Narrative | Performed At | + + + | | | + + + CARDIOLOGY (08/31/2018 12:00 AM PST) + + + | Narrative | Performed At | + + + | | | + + + CARDIOLOGY (08/31/2018 12:00 AM PST) + + + | Narrative | Performed At | + + + | | | + + + documented in this encounter Visit Diagnoses + + | Diagnosis | + + | Morbid obesity (HCC) Morbid obesity | + + documented in this encounter Administered Medications + +--------+ +---------+------+------+ | Medication Order | MAR | Action | Dose | Rate | Site | | | Action | Date | | | | + +--------+ +---------+------+------+ | atenolol (TENORMIN) tablet 12.5 | Given | 09/01/20 | 12.5 mg | | | | mg 12.5 mg, oral, TWICE DAILY, | | 18 8:31 | | | | | First dose on Wed08/31/18 at | | AM PST | | | | | 2100, Until Discontinued | | | | | | + +--------+ +---------+------+------+ +-------+ +---------+---+---+ | Given | 08/31/20 | 12.5 mg | | | | | 18 10:40 | | | | | | PM PST | | | | +-------+ +---------+---+---+ +---+---+ | | | +---+---+ + +-------+ +-------+---+ + | bupivacaine | Given | 08/31/20 | 50 mL | | Surgical | | (MARCAINE,SENSORCAINE) 0.25 % | | 18 1:39 | | | Site | | (2.5 mg/mL) injection | | PM PST | | | | | INTRAPROCEDURE PRN, Starting Wed | | | | | | | 08/31/18 at 1339, Until Wed | | | | | | | 08/31/18 at 1404 | | | | | | + +-------+ +-------+---+ + + +---+ | | | + +---+ | cetirizine (ZYRTEC) tablet 10 | | | mg 10 mg, oral, DAILY NEEDED, | | | Starting Wed08/31/18 at 2101, | | | Until Wed09/02/18 at 2314, | | | allergies | | + +---+ | | | + +---+ + +-------+ +------+---+---+ | diazePAM (VALIUM) tablet 2 mg | Given | 09/02/20 | 2 mg | | | | 2 mg, oral, FOUR TIMES DAILY | | 18 4:06 | | | | | NEEDED, Starting Wed09/02/18 at | | PM PST | | | | | 0810, Until 09/02/18 at 2314, | | | | | | | muscle spasms | | | | | | + +-------+ +------+---+---+ +-------+ +------+---+---+ | Given | 09/02/20 | 2 mg | | | | | 18 8:31 | | | | | | AM PST | | | | +-------+ +------+---+---+ +---+---+ | | | +---+---+ + +-------+ +-------+---+---------+ | enoxaparin (LOVENOX) injection | Given | 09/02/20 | 40 mg | | Abdomen | | 40 mg 40 mg, subcutaneous, EVERY | | 18 8:48 | | | | | 12 HOURS, First dose (after last | | AM PST | | | | | modification) on Wed08/31/18 at | | | | | | | 2300, Until Discontinued | | | | | | + +-------+ +-------+---+---------+ +-------+ +-------+---+---------+ | Given | 09/01/20 | 40 mg | | Abdomen | | | 18 9:51 | | | | | | PM PST | | | | +-------+ +-------+---+---------+ | Given | 09/01/20 | 40 mg | | Abdomen | | | 18 8:25 | | | | | | AM PST | | | | +-------+ +-------+---+---------+ +---+---+ | | | +---+---+ + +-------+ + +---+---+ | hyoscyamine (LEVSIN) tablet | Given | 09/02/20 | 0.125 mg | | | | 0.125 mg 0.125 mg, oral, BEFORE | | 18 4:49 | | | | | MEALS AND BEDTIME, First dose on | | PM PST | | | | | 09/02/18 at 1100, Until | | | | | | | Discontinued | | | | | | + +-------+ + +---+---+ +-------+ + +---+---+ | Given | 09/02/20 | 0.125 mg | | | | | 18 10:10 | | | | | | AM PST | | | | +-------+ + +---+---+ +---+---+ | | | +---+---+ + +---------+ +-------+-------+---+ | lactated Ringers IV 150 mL/hr, | New Bag | 09/02/20 | 150 | 150 | | | intravenous, CONTINUOUS, | | 18 11:00 | mL/hr | mL/hr | | | Starting 08/31/18 at 1500, | | AM PST | | | | | Until 09/02/18 at 2314 | | | | | | + +---------+ +-------+-------+---+ + + +-------+-------+---+ | Rate/Dose Verify | 09/02/20 | 150 | 150 | | | | 18 8:42 | mL/hr | mL/hr | | | | AM PST | | | | + + +-------+-------+---+ | New Bag | 09/02/20 | 150 | 150 | | | | 18 4:58 | mL/hr | mL/hr | | | | AM PST | | | | + + +-------+-------+---+ +---+---+ | | | +---+---+ + +-------+ + +---+ + | NaCl 0.9 % irrigation | Given | 08/31/20 | 1,000 mL | | Surgical | | INTRAPROCEDURE PRN, Starting Wed | | 18 12:55 | | | Site | | 08/31/18 at 1255, Until Wed | | PM PST | | | | | 08/31/18 at 1404 | | | | | | + +-------+ + +---+ + +---+---+ | | | +---+---+ + +-------+ +-------+---+---+ | omeprazole (PRILOSEC) capsule | Given | 09/02/20 | 20 mg | | | | 20 mg 20 mg, oral, DAILY, First | | 18 8:34 | | | | | dose on Lucy 09/01/18 at 0900, | | AM PST | | | | | Until Discontinued | | | | | | + +-------+ +-------+---+---+ +-------+ +-------+---+---+ | Given | 09/01/20 | 20 mg | | | | | 18 8:32 | | | | | | AM PST | | | | +-------+ +-------+---+---+ +---+---+ | | | +---+---+ + +-------+ +-------+---+---+ | oxyCODONE (immediate release) | Given | 09/02/20 | 15 mg | | | | (ROXICODONE) liquid 5-15 mg 5-15 | | 18 4:49 | | | | | mg, oral, EVERY 3 HOURS | | PM PST | | | | | NEEDED, Starting Wed08/31/18 at | | | | | | | 2045, Until Wed09/02/18 at 2314, | | | | | | | moderate pain | | | | | | + +-------+ +-------+---+---+ +-------+ +-------+---+---+ | Given | 09/02/20 | 15 mg | | | | | 18 1:52 | | | | | | PM PST | | | | +-------+ +-------+---+---+ | Given | 09/02/20 | 10 mg | | | | | 18 10:10 | | | | | | AM PST | | | | +-------+ +-------+---+---+ +---+---+ | | | +---+---+ + + + +---+---+---+ | probiotic yogurt (MARIELENA'S | Given - | 09/01/20 | | | | | YOGURT) oral, TWICE DAILY, First | Food | 18 8:32 | | | | | dose on Lucy 09/01/18 at 0900, | | AM PST | | | | | Until Discontinued | | | | | | + + + +---+---+---+ +---+---+ | | | +---+---+ + + + +---------+---+ + | scopolamine (TRANSDERM-SCOP) 1 | Applied | 08/31/20 | 1 patch | | Right | | mg over 3 days 1 patch 1 patch, | Patch | 18 6:49 | | | Post | | transdermal, EVERY 72 HOURS, | | PM PST | | | Auricula | | First dose on Wed08/31/18 at | | | | | r | | 2015, Until Discontinued | | | | | | + + + +---------+---+ + +---+---+ | | | +---+---+ + +-------+ +-------+---+---+ | sertraline (ZOLOFT) tablet 75 | Given | 09/02/20 | 75 mg | | | | mg 75 mg, oral, DAILY, First | | 18 8:45 | | | | | dose on Wed08/31/18 at 1545, | | AM PST | | | | | Until Discontinued | | | | | | + +-------+ +-------+---+---+ +-------+ +-------+---+---+ | Given | 09/01/20 | 75 mg | | | | | 18 8:31 | | | | | | AM PST | | | | +-------+ +-------+---+---+ | Given | 08/31/20 | 75 mg | | | | | 18 10:40 | | | | | | PM PST | | | | +-------+ +-------+---+---+ +---+---+ | | | +---+---+ + +-------+ +-------+---+---+ | simethicone chew (MYLICON) | Given | 09/02/20 | 80 mg | | | | tablet 80 mg 80 mg, oral, THREE | | 18 8:45 | | | | | TIMES DAILY NEEDED, Starting | | AM PST | | | | | 08/31/18 at 2045, Until Fri | | | | | | | 09/02/18 at 2314, bloating | | | | | | + +-------+ +-------+---+---+ +-------+ +-------+---+---+ | Given | 09/01/20 | 80 mg | | | | | 18 10:30 | | | | | | AM PST | | | | +-------+ +-------+---+---+ +---+---+ | | | +---+---+ + +-------+ + +---+ + | sterile water for irrigation | Given | 08/31/20 | 1,000 mL | | Other | | irrigation INTRAPROCEDURE PRN, | | 18 12:55 | | | (See | | Starting Wed08/31/18 at 1255, | | PM PST | | | Comments | | Until Wed08/31/18 at 1404 | | | | | ) | + +-------+ + +---+ + +---+---+ | | | +---+---+ documented in this encounter
--- OUTSIDE RECORDS SUMMARY | ~2020-03-18 | XMS | Encounter Summary ---
Demographics + + + | Address | [address] | | | [place] [address] | + + + | Home Phone | | + + + | Preferred Language | Unknown | + + + | Marital Status | | + + + | Protestant Affiliation | CHR | + + + [...] [place] | | | | | [address] | | + + + + + Care Team Providers + +------+ + | Care Spray Technician Name | Role | Phone | + +------+ + | Aleshia Martinez PA-C | PCP | | + +------+ + Encounter Details +--------+ + + + + | Date | Type | Department | Care Team | Description | +--------+ + + + + | 04/13/ | Abstract | [facility] | Clinic, Surgery | | | 2019 | | [place] [facility] [address] | | | | | | [address] | | | | | | Mailcode: [place] | | | | | | for Health and | | | | | | Healing, [address] | | | | | | [place], [place] | | | | | | [address] | | | | | | [phone] | | | +--------+ + + + [...]
--- OUTSIDE RECORDS SUMMARY | ~2020-03-18 | XMS | Encounter Summary ---
Demographics + + + | Address | [address] | | | [place] [address] | + + + | Home Phone [...] [place] | | | | | [address] | | + + + + + Care Team Providers + +------+ + | Care Bacteriologist Fishery Name | Role | Phone | + +------+ + | No Pcp Per Patient | PCP | Unavailable | + +------+ + Encounter Details +--------+ + + + + | Date | Type | Department | Care Team | Description | +--------+ + + + + | 10/22/ | Abstract | Dig[facility]ive Health | Clinic, Surgery | | | 2016 | | [place] [facility] [address] | | | | | | [address] | | | | | | Mailcode: [place] | | | | | | [facility] | | | | | | Healing, [address] | | | | | | [place], [place] | | | | | | [address] | | | | | | [phone] | | | +--------+ + + + [...]
--- OUTSIDE RECORDS SUMMARY | ~2020-03-18 | XMS | Encounter Summary ---
Demographics + + + | Address | [address] | | | [place] [address] | + + + | Home Phone | | + + + | Preferred Language | Unknown | + + + | Marital Status | | + + + | Caodaism Affiliation | CHR | + + + | Race | White | + + + | Ethnic Group | Not or | + + + Author + + + | Author | [facility] | + + + | Organization | [facility] | + + + | Address | Unknown | + + + | Phone | Unavailable | + + + Support + + + + + | Name | Relationship | Address | Phone | + + + + + | Stewart Corbett | ECON | [address] | | | | | [place] | | | | | [address] | | + + + + + Care Team Providers + +------+ + | Care Senior Security Analyst Name | Role | Phone | + +------+ + | Aleshia Martinez PA-C | PCP | | + +------+ + Encounter Details +--------+ + + + + | Date | Type | Department | Care Team | Description | +--------+ + + + + | 08/23/ | MyChart | Digestive Health | | Bariatric online | | 2018 | Encounter | [facility] [address] | | support group | | | | [address] | | | | | | Mailcode: [place] | | | | | | for Health and | | | | | | Healing, [address] | | | | | | [place], [place] | | | | | | [address] | | | | | | [phone] | | | +--------+ + + + [...]
--- OUTSIDE RECORDS SUMMARY | ~2020-03-18 | XMS | Encounter Summary ---
Demographics + + + | Address | [address] | | | [place] [address] | + + + | Home Phone [...] [place] | | | | | [address] | | + + + + + Care Team Providers + +------+ + | Care Strap Machine Operator Automatic Name | Role | Phone | + +------+ + | Aleshia Martinez PA-C | PCP | | + +------+ + Encounter Details +--------+ + + + + | Date | Type | Department | Care Team | Description | +--------+ + + + + | 05/31/ | Pharmacy | [facility]patient [facility] | | | | 2017 | Visit | [facility] | | | | | | [address] | | | | | | [place] | | | | | | [address] | | | | | | [phone] | | | +--------+ + + + [...]
--- OUTSIDE RECORDS SUMMARY | ~2020-03-18 | XMS | Encounter Summary ---
Demographics + + + | Address | [address] | | | [place] [address] | + + + | Home Phone [...] [place] | | | | | [address] | | + + + + + Care Team Providers + +------+ + | Care Mophead Trimmer And Wrapper Name | Role | Phone | + [...] Description | +--------+---------+ + + + | 09/29/ | Office | Digestive Health | Gildardo Downing, | Aftercare following | | 2018 | Visit | Center at [facility] [address] | MD [address] | surgery (Primary | | | | [address] | [facility], [place] | Dx); S/P | | | | Mailcode: Center | [phone] | laparoscopic sleeve | | | | for Health and | [phone] | gastrectomy | | | | Healing, Building [address] | | | | | | [place], [place] | | | | | | [address] | | | | | | [phone] | | | +--------+---------+ + + + [...] + + + | Blood Pressure | 136/93 | 09/29/2018 11:43 AM | | | | | PST | | + + + + + | Pulse | 61 | 09/29/2018 11:43 AM | | | | | PST | | + + + + + | Temperature | 36.8 C (98.3 F) | 09/29/2018 11:43 AM | | | | | PST | | + + + + + | Respiratory Rate | 16 | 09/29/2018 11:43 AM | | | | | PST | | + + + + + | Oxygen Saturation | 95% | 09/29/2018 11:43 AM | | | | | PST | | + + + + + | Inhaled Oxygen | - | - | | | Concentration | | | | + + + + + | Weight | 112.8 kg (248 lb | 09/29/2018 11:43 AM | | | | 10.9 oz) | PST | | + + + + + | Height | 167.6 cm (5' 6") | 09/29/2018 11:43 AM | | | | | PST | | + + + + + | Body Mass Index | 40.14 | 09/29/2018 11:43 AM | | | [...] of this encounter Patient Instructions Patient Instructions Gildardo Downing MD - 09/29/2018 11:20 AM PSTIt is safe to use NSAIDs (anti-inflammatory medications) after sleeve gastrectomy- this includes motrin/ibuprofen/nap roxen/naprosyn (advil/aleve). No activity restrictions now. Start to exercise. You may still feel sore with exercise. You can use massage/acupuncture/meditation to assist with pain relief IF you are still taking your omeprazole (or other antacid), you can try to wean off it: Ta ke it every other day for 2 wks, and then take it twice a week for one week. If you have no acid reflux/GERD/heartburn, stop taking your omeprazole. You DO NOT need to cut pills or open capsules. Only do this if it is difficult to swallow or hurts your stomach. Otherwise, take all medications normally. You can swim/soak your incisions. It is safe to use lotions/creams on incisions now. If your vitamins or other meds upset your stomach, try taking them spaced out during your d ay or talk to our PCP as well, about if any medications can be adjusted. Please visit with our Manager Med Surg (RD) for instructions about your Bariatric diet, assistance with calorie counts, tips and tricks for working with your diet restrictions, an d recipes after bariatric surgery. Daily yogurt; even just 1 tablespoon twice a day will provide enough probiotics to optimize digestion. Try to use a high-quality, probiotic-dense yogurt (eg Marielena's, [place], Lif eway Kefir, Residential Aide Dom's Fijian Yogurt). Remember to chew your food well, [...] classes and during appointments with our RD. Control (FOR FEMALES OF REPRODUCTIVE AGE): Bariatric [...] encounter Progress Notes Gildardo Downing MD - 09/29/2018 11:20 AM PSTFormatting of this note might be different fro m the original. BARIATRIC SURGERY POSTOP FOLLOW UP DATE OF VISIT: 09/29/18 REASON FOR VISIT: Postop check. DATE OF SURGERY: 08/31/2018 HISTORY: Sara Federico is a(n) 33 y.o. female with history of Past Medical History: Diagnosis Date Anxiety Asthma Depression Diverticulitis Glucose intolerance (impaired glucose tolerance) HTN (hypertension) Irregular periods Morbid obesity with BMI of 40.0-44.9, adult (HCC) Pneumonia Ventral hernia, recurrent Here for postop check s/p LSG TODAY IN CLINIC Pt has lost 22lbs since preop visit. 270->248lb Incisional hernia has more pain but abdominal pain postop has fully resolved Getting car sick now and not sure why. Sleeping during day and needs to get back on schedu le. Is taking meds according to discharge instructions yes Feels medication instructions were clear at discharge yes SUPPLEMENTS: MVI: yes Calcium supplement: yes Vit D: yes B12: No- had injection VITAL SIGNS: BP 136/93 | Pulse 61 | Temp (Src) 36.8 C (98.3 F) (Oral) | RR 16 | Ht 1.676 m (5' 6") | Wt 112.8 kg (248 lb 10.9 oz) | SpO2 95% | BMI 40.14 kg/(m^2) WNWD, NAD, speaking in complete sentences Exam SURGICAL SITE: [facility] IMPRESSION: A(n) 33 y.o. female s/p LSG, doing well PLAN: - start to wean PPI - no activity restrictions now - safe to use NSAIDs after sleeve gastrectomy - take medications normally (do not need to open/cut/crush meds unless unable to tolerate t hem) - exercise regularly - meet with RD to review diet choices/options - fu in 3 months, we will check nutrition labs at that visit or at 6 month visit depending upon weight loss and diet intake. - ensure taking vitamins - walk regularly. If unable to walk, consider PT referral and water exercise - consider attendance at support groups - see PCP for ongoing management of chronic medications and medical problems. I have rev'd medications and problem list as pertains to bariatric surgery today. Electronically signed on 09/29/2018 at 12:12 PM GILDARDO DOWNING MD. Division of Bariatric Surgery [facility] | [facility] [address] | [place], [place] | [address] | documented in this en counter Plan of Treatment Not on filedocumented as of this encounter Visit Diagnoses + + | Diagnosis | + + | Aftercare following surgery - Primary Encounter for other specified aftercare | + + | S/P laparoscopic sleeve gastrectomy | + + documented in this encounter
--- OUTSIDE RECORDS SUMMARY | ~2020-03-18 | XMS | Encounter Summary ---
Demographics + + + | Address | [address] | | | [place] [address] | + + + | Home Phone | | + + + | Preferred Language | Unknown | + + + | Marital Status | | + + + | Bahai Affiliation | CHR | + + + | Race | White | + + + | Ethnic Group | Not or | + + + Author + + + | Author | [facility] | + + + | Organization | [facility] | + + + | Address | Unknown | + + + | Phone | Unavailable | + + + Support + + + + + | Name | Relationship | Address | Phone | + + + + + | Stewatr Corbett | ECON | [address] | | | | | [place] | | | | | [address] | | + + + + + Care Team Providers + +------+ + | Care Timber Buyer Name | Role | Phone | + [...] | Bariatri Surg | | | with SODIUM METHYLATE OPERATOR | | obesity | Ganesh Holden MD | [facility] [address] | | | | | (HCC) | [address] | | | | | Procedures | [address] | Mailcode: | | | | | CONSULT TO | Jessica Sepulveda | [place] for | | | | | BARIATRIC | [place], [place] | Health and | | | | | SURGERY | [address] | Healing, | | | | | | | [address] | | | | | | | [place], [place] | | | | | | | [address] | | | | | | | Phone: | | | | | | | [phone] | | | | | | | Fax: | | | | | | | [phone] | + + + + + + + Encounter Details +--------+---------+ + + + | Date | Type | Department | Care Team | Description | +--------+---------+ + + + | 06/16/ | Office | Digestive Health | Gildardo Downing, | Morbid obesity with | | 2017 | Visit | Center at [facility] [address] | MD [address] | BMI of 40.0-44.9, | | | | [address] | [place], [place] | adult (HCC) (Primary | | | | Mailcode: Center | [address] | Dx); Essential | | | | for Health and | [phone] | hypertension; | | | | Healing, [address] | | Ventral hernia with | | | | [place], [place] | | obstruction and | | | | [address] | | without gangrene | | | | [phone] | | | +--------+---------+ + + + [...] 06/16/2018 9:20 AM PDTPlease visit with our [facility] Dianeticist (RD) for instructions about your Bariatric diet, assistance with calorie c ounts, tips and tricks for working with your diet restrictions, and recipes after bariatric surgery. Daily yogurt; even just 1 tablespoon twice a day will provide enough probiotics to optimize digestion. Try to use a high-quality, probiotic-dense yogurt (eg Marielena's, Marcello, Enrico alberto Kefir, Commodity Director Dom's Fijian Yogurt). Remember to chew your [...] to the healing stomach. There are also residential complications of poor wound healing and gastric [...] a 4-5% rate of reoperation over the residential (i.e. years), as well as other late [...] and may approach 5%. We reviewed the [facility] consent form. We discussed that we did [...]
--- OUTSIDE RECORDS SUMMARY | ~2020-03-18 | XMS | Encounter Summary ---
Demographics + + + | Address | [address] | | | [place] [address] | + + + | Home Phone [...] [place] | | | | | [address] | | + + + + + Care Team Providers + +------+ + | Care Bead Wire Insulator Name | Role | Phone | + +------+ + | No Pcp Per Patient | PCP | Unavailable | + +------+ + Encounter Details +--------+ + + + + | Date | Type | Department | Care Team | Description | +--------+ + + + + | 09/21/ | Abstract | Digestive Health | Clinic, Surgery | | | 2016 | | [place] [facility] [address] | | | | | | [address] | | | | | | Mailcode: [place] | | | | | | [facility] Health and | | | | | | Healing, Building [address] | | | | | | [place], [place] | | | | | | [address] | | | | | | [phone] | | | +--------+ + + + [...]
--- OUTSIDE RECORDS SUMMARY | ~2020-03-18 | XMS | Encounter Summary ---
Demographics + + + | Address | [address] | | | [place] [address] | + + + | Home Phone [...] + + + | Author | [facility] | + + + | Organization | [facility] | + + + | Address | Unknown | + + + | Phone | Unavailable | + + + Support + + + + + | Name | Relationship | Address | Phone | + + + + + | Stewart Corbett | ECON | [address] | | | | | [place] | | | | | [address] | | + + + + + Care Team Providers + +------+ + | Care Trackmobile Operator Name | Role | Phone | + +------+ + | Aleshia Martinez PA-C | PCP | | + +------+ + Encounter Details +--------+ + + + + | Date | Type | Department | Care Team | Description | +--------+ + + + + | 09/02/ | Pharmacy | Outpatient Retail | | | | 2017 | Visit | [facility] | | | | | | [address] | | | | | | [place] | | | | | | [address] | | | | | | [phone] | | | +--------+ + + + [...]
--- OUTSIDE RECORDS SUMMARY | ~2020-03-18 | XMS | Encounter Summary ---
Demographics + + + | Address | [address] | | | [place] [address] | + + + | Home Phone [...] [place] | | | | | [address] | | + + + + + Care Team Providers + +------+ + | Care Diamond Cutter Name | Role | Phone | [...] 2018 | Encounter | [facility] at [facility] [address] | [address] | am | | | | [address] [facility] | Jessica Sepulveda [place], | | | | | for Health and | [place] [address] | | | | | Healing, [address] | | | | | | [place], [place] | | | | | | [address] | | | | | | [phone] | | | +--------+ + + + [...]
--- OUTSIDE RECORDS SUMMARY | ~2020-03-18 | XMS | Encounter Summary ---
Demographics + + + | Address | [address] | | | [place] [address] | + + + | Home Phone [...] [place] | | | | | [address] | | + + + + + Care Team Providers + +------+ + | Care Molded Frames Assembler Name | Role | Phone | + +------+ + | Aleshia Martinez PA-C | PCP | | + +------+ + Reason for Visit + + + | Reason | Comments | + + + | Abdominal pain | left sided near incision | + + + Encounter Details +--------+ + + + + | Date | Type | Department | Care Team | Description | +--------+ + + + + | 09/16/ | Telephone | Digestive Health | Gildardo Downing, | Abdominal pain (left | | 2018 | | Center at [facility] [address] | MD [address] | sided near | | | | [address] | [place], [place] | incision) | | | | Mailcode: Center | [address] | | | | | for Health and | [phone] | | | | | [facility], [facility] [address] | | | | | | [place], [place] | | | | | | [address] | | | | | | [phone] | | | +--------+ + + + [...]
--- OUTSIDE RECORDS SUMMARY | ~2020-03-18 | XMS | Encounter Summary ---
Demographics + + + | Address | [address] | | | [place] [address] | + + + | Home Phone [...] [place] | | | | | [address] | | + + + + + Care Team Providers + +------+ + | Care Flow Match Sofa Cutter Name | Role | Phone | [...] 2019 | Encounter | [facility] at [facility] [address] | MD [address] | follow up | | | | [address] | [place], [place] | appointment | | | | Mailcode: Center | [address] | | | | | for Health and | [phone] | | | | | Healing, Building [address] | | | | | | [place], [place] | | | | | | [address] | | | | | | [phone] | | | +--------+ + + + [...]
--- OUTSIDE RECORDS SUMMARY | ~2020-03-18 | XMS | Encounter Summary ---
Demographics + + + | Address | [address] | | | [place] [address] | + + + | Home Phone | | + + + | Preferred Language | Unknown | + + + | Marital Status | | + + + | Voodoo Affiliation | CHR | + + + [...] [place] | | | | | [address] | | + + + + + Care Team Providers + +------+ + | Care Public Defender Name | Role | Phone | + +------+ + | Aleshia Martinez PA-C | PCP | | + +------+ + Encounter Details +--------+ + + + + | Date | Type | Department | Care Team | Description | +--------+ + + + + | 07/01/ | Telephone | Digestive Health | Gildardo Downing, | | | 2017 | | Center at [facility] [address] | [address] | | | | | [address] | [place], [place] | | | | | Mailcode: Center | [address] | | | | | for Health and | [phone] | | | | | [facility], [address] | | | | | | [place], [place] | | | | | | [address] | | | | | | [phone] | | | +--------+ + + + [...]
--- OUTSIDE RECORDS SUMMARY | ~2020-03-18 | XMS | Encounter Summary ---
Demographics + + + | Address | [address] | | | [place] [address] | + + + | Home Phone | | + + + | Preferred Language | Unknown | + + + | Marital Status | | + + + | Christianity Affiliation | CHR | + + + [...] [place] | | | | | [address] | | + + + + + Care Team Providers + +------+ + | Care Rope Making Machine Operator Name | Role | Phone [...] + + + | Closed | | Plastic | Diagnoses | | Pls | | | | Surgery | Postop | Joseph Ireland/Recon | | | | | check | MD Yann | [facility] [address] | | | | | Procedures | [address] | | | | | CONSULT TO | Jass Lopez | Mailcode: | | | | | SURGERY - | Rd | [facility] [place] | | | | | PLASTICS | [place], [place] | for Health | | | | | | [address] | and Healing, | | | | | | Phone: | Building 1, | | | | | | [phone] | 5th Floor | | | | | | Fax: | [place], [place] | | | | | | [phone] | [address] | | | | | | | Phone: | | | | | | | [phone] | +--------+--------+ + + + + Encounter Details +--------+---------+ + + + | Date | Type | Department | Care Team | Description | +--------+---------+ + + + | 11/30/ | Office | Digestive Health | Shu, | Postop check | | 2020 | Visit | [place] [facility] [address] | MD Yann [address] | (Primary Dx) | | | | [address] | [address] | | | | | Mailcode: Center | [place], [place] | | | | | for Health and | [address] | | | | | Healing, Building 2 | [phone] | | | | | [place], [place] | | | | | | [address] | | | | | | [phone] | | | +--------+---------+ + + + [...] + + + | Blood Pressure | 139/87 | 11/30/2019 1:37 PM | | | | | PST | | + + + + + | Pulse | 70 | 11/30/2019 1:37 PM | | | | | PST | | + + + + + | Temperature | - | - | | + + + + + | Respiratory Rate | 16 | 11/30/2019 1:37 PM | | | | | PST | | + + + + + | Oxygen Saturation | 99% | 11/30/2019 1:37 PM | | | | | PST | | + + + + + | Inhaled Oxygen | - | - | | | Concentration | | | | + + + + + | Weight | 72.5 kg (159 lb 12.8 | 11/30/2019 1:37 PM | | | | oz) | PST | | + + + + + | Height | - | - | | + + + + + | Body Mass Index | 25.03 | 10/05/2019 2:02 PM | | | | | PST [...] of this encounter Patient Instructions Patient Instructions Gilbert Reed - 11/30/2019 12:50 PM PST You can return to work now. N o restrictions at this point, though discontinue any activity that causes discomfort or swit ch to a division chief weight. I will order a referral to one of your plastic surgeons to discuss excess skin removal. They will call you to set this up. Follow up with me as needed, but call with any questions or concerns. Electronically sig alex by Gilbert Reed at 11/30/2019 2:10 PM PST documented in this encounter Progress Notes Yann Ireland MD - 11/30/2019 12:50 PM PSTGENERAL SURGERY POSTOP FOLLOW UP DATE OF VISIT: 11/30/2019 REASON FOR VISIT: Postop check (3 months) DATE OF ADMISSION--DISCHARGE: 09/22/2019 - 09/25/2019 (3 months) DIAGNOSIS: Recurrent incarcerated incisional ventral hernia PROCEDURE: 1. Exploratory laparotomy. 2. Excision of prior hernia mesh [id number] pieces.2.5 hours spent excising mesh includ ing debridement of the dense scar, some fascia, muscle, and adipose. 3.Retromuscular repair of recurrent incisional hernia. FINDINGS: The patient had multiple pieces of mesh (including marlex, composix, and another piece prob able polyester)that had been placed intra-abdominally and were adhesed to the underlying s mall intestine and colon. One area appeared to be near fistulization into bowel. This was the composix mesh where the PTFE portion had folded to expose the polypropylene to the bowel .The serosa of the small intestine was fused to the mesh. There was no evidence of act sarmad infection or current fistulization. Three pieces of mesh were removed with 2.5 hours o f careful dissection being cautious not to injure bowel or bladder. A 4th piece of mesh wa s partially removed; however, it was densely adherent to the patient's sigmoid colon and bessy dder and was well incorporated and further dissection was deemed not to be safe. This did not interfere with our ability to perform a good hernia repair. It was therefore left in s itu. INTERVAL HISTORY: Sara Caballero is a 34 y.o. female s/p exploratory laparotomy wit h mesh explant, including debridement of dense scar, fascia, muscle, and adipose, with retro muscular repair of recurrent incarcerated hernia, here for 3 month postop check. She was last seen by me on 10/05/2019, at which time she was having complaints of LLQ pain at the site of her mesh fixation, otherwise healing well. TODAY IN CLINIC: Since surgery Sara Caballero has done well post op and has no major complaints. Sh mayte has some mild residual pain in the lower abdomen, usually if she is needing to have a BM. She also continues with some urinary frequency, having to get up at night once or twice to u rinate. It has been slowly improving since surgery. She does have excess skin since surgery and is interested in having it removed. PHYSICAL EXAMINATION: BP 139/87 (BP Location: Right upper arm, Patient Position: Sitting) | Pulse 70 | Resp 16 | Wt 72.5 kg (159 lb 12.8 oz) | SpO2 99% | BMI 25.03 kg/m | BSA 1.85 m SURGICAL SITE: Abdomen is soft, nondistended. Nontender to palpation. Palpable scar rid ge lower abdomen. No evidence of hernia recurrence. Midline incision c/d/i; no cellulitis or other signs of infection. No ecchymosis or hematoma. IMPRESSION: A 34 y.o. female s/p exploratory laparotomy with mesh explant, including debri david of dense scar, fascia, muscle, and adipose, with retromuscular repair of recurrent in carcerated hernia, healing and doing well 3 months postop. There is no evidence of fluid col lection, infection, or hernia recurrence at this time. She does have significant excess skin in the lower abdomen. PLAN: No restrictions at this point, though discontinue any activity that may cause discomfort . Referral sent to plastic surgery. Follow up PRN, but call with any questions or concerns. I am Gilbert Reed functioning as a scribe for Yann Ireland MD at 2:05 PM on 11/30/2019 I have reviewed and verified the above scribed note of my visit with this patient as record ed by Gilbert Reed. YANN IRELAND MD [facility] [address] [facility] Mailcode: [place] [address] documented in thi s encounter Plan of Treatment Not on filedocumented as of this encounter Visit Diagnoses + + | Diagnosis | + + | Postop check - Primary Follow-up examination, following unspecified surgery | + + documented in this encounter"
--- OUTSIDE RECORDS SUMMARY | ~2020-03-18 | XMS | Encounter Summary ---
Demographics + + + | Address | [address] | | | [place] [address] | + + + | Home Phone [...] [place] | | | | | [address] | | + + + + + Care Team Providers + +------+ + | Care Costume Design Teacher Name | Role | Phone | [...] | | 2017 | | Center at [facility] [address] | | Bariatric Surgery | | | | [address] | | | | | | Mailcode: Center | | | | | | for Health and | | | | | | [facility], Building 2 | | | | | | [place], [place] | | | | | | [address] | | | | | | [phone] | | | +--------+ + + + [...]
--- OUTSIDE RECORDS SUMMARY | ~2020-03-18 | XMS | Encounter Summary ---
Demographics + + + | Address | [address] | | | [place] [address] | + + + | Home Phone [...] [place] | | | | | [address] | | + + + + + Care Team Providers + +------+ + | Care Foot Miter Operator Name | Role | Phone | + +------+ + | Aleshia Martinez PA-C | PCP | | + +------+ + Encounter Details +--------+ + + + + | Date | Type | Department | Care Team | Description | +--------+ + + + + | 06/23/ | Abstract | Digestive Health | Clinic, Surgery | | | 2017 | | [place] at [facility] [address] | | | | | | [address] | | | | | | Mailcode: [place] | | | | | | for Health and | | | | | | Healing, Building [address] | | | | | | [place], [place] | | | | | | [address] | | | | | | [phone] | | | +--------+ + + + [...]
--- OUTSIDE RECORDS SUMMARY | ~2020-03-18 | XMS | Encounter Summary ---
Demographics + + + | Address | [address] | | | [place] [address] | + + + | Home Phone [...] [place] | | | | | [address] | | + + + + + Care Team Providers + +------+ + | Care Automatic Cigar Wrapper Tender Name | Role | Phone | [...] | | 2019 | | Center at [facility] [address] | AGACNP [address] | Received | | | | [address] | [place], [place] | | | | | Mailcode: Center | [address] | | | | | for Health and | [phone] | | | | | [facility] 2 | | | | | | [place], [place] | | | | | | [address] | | | | | | [phone] | | | +--------+ + + + [...]
--- OUTSIDE RECORDS SUMMARY | ~2020-03-18 | XMS | Encounter Summary ---
Demographics + + + | Address | [address] | | | [place] [address] | + + + | Home Phone [...] [place] | | | | | [address] | | + + + + + Care Team Providers + +------+ + | Care Tower Loader Operator Name | Role | Phone | + +------+ + | Aleshia Martinez PA-C | PCP | | + +------+ + Reason for Visit +--------+ + | Reason | Comments | +--------+ + | Other | Peer to peer | +--------+ + Encounter Details +--------+ + + + + | Date | Type | Department | Care Team | Description | +--------+ + + + + | 06/21/ | Telephone | Digestive Health | Gildardo Downing, | Other (Peer to peer | | 2018 | | Center at [facility] [address] | [address] | ) | | | | [address] | [place], [place] | | | | | Mailcode: [place] | [phone] | | | | | for Health and | [phone] | | | | | [place] [address] | | | | | | [place], [place] | | | | | | [address] | | | | | | [phone] | | | +--------+ + + + [...]
--- OUTSIDE RECORDS SUMMARY | ~2020-03-18 | XMS | Encounter Summary ---
Demographics + + + | Address | [address] | | | [place] [address] | + + + | Home Phone | | + + + | Preferred Language | Unknown | + + + | Marital Status | | + + + | Evangelical Affiliation | CHR | + + + [...] [place] | | | | | [address] | | + + + + + Care Team Providers + +------+ + | Care Compressed Gas Equipment Mechanic Name | Role | Phone | [...] + + | 09/22/ | Hospital | [address] | [place], | | | 2019 - | Encounter | [address] | MD Bryson [address] | | | | | | [address] | | | 09/25/ | | [address] | | | | 2019 | | [phone] | [address] | | | | | | [phone] | | | | | | | [...] might b e different from the original. [facility] - GREEN SURGERY TEAM INPATIENT DISCHARGE SUMMARY Author: Shayne Laguerre DNP AGACNP-BC Attending Physician: Bryson Ireland MD PCP: Aleshia Martinez PA-C Admission Date: 09/22/2019 Discharge Date: 09/25/2019 Diagnosis: Recurrent incarcerated incisional ventral hernia. Procedure: 1.Exploratory laparotomy. 2.Excision of prior hernia mesh f8ietahhck pieces.2.5 hours spent exc ising mesh including [...] WWP Outstanding labs/studies: None Discharging Provider[facility] Attending Physician: MD Shayne Mcdonough DNP [facility] Pager# [phone] 9:06 AM 09/25/2019 Vega colunga in this [...] hours by calling the surgery office at [phone]. After hours, weekends and holidays, you may call the hospital cooling machine operator at [phone] and have the cash reconciliation specialist [facility] Team for general surgery paged. Discharge Instr [...] every 4-6 hours. Tylenol: You may use gqud-psv-vethkec (OTC) acetaminophen (Tylenol) for milder pain. Do [...] medications with Hydrocodone such as Vicodin or Squire. It is important to keep track of [...] out a dark red color and becomes net technical architect and eventually a straw color. * Wash [...] removal. If you live ou t of [facility], we will plan to talk with your [...] Hilda Chua MD - 09/24/2019 6:38 AM PSTDEPARTMENT OF SURGERY Green Surgery Admission [...] incarcerated incisional hernia s/p repair. -transition from LIFE EDUCATOR to orals -continue drain. #low UOP -resolving, saline lock -remove stafford Dispo: likely 3 days total inpatient. HILDA CHUA MD General [facility] MD - 09/23/2019 8:56 AM PSTDEPARTMENT OF SURGERY [facility] Surgery Admission Date: 09/22/2019 ( LOS: 1 [...] #Recurrent incarcerated incisional hernia s/p repair. -continue LIFE EDUCATOR and stafford until tomorrow -continue drain. #low [...] [facility] | [address] | [place] [address] | | | SERVICES, CORE | PARK [...] | + + + + + | [facility] | [address] | [place] [address] | | | SERVICES, CORE | PARK [...] | | | LABORATORY | | | SCOTTISH | | | SERVICES, | | | [...] MDRD equation recommended by the National | [facility] | | Kidney Disease Education Program. Estimated [...] | + + + + + | [facility] | [address] | [place] [address] | | | NILO, KUSH | SHAHLA [...] [facility] | [address] | [place] [address] | | | SERVICES, CORE | PARK [...] | | | POC | | | [place] | | | | | | [...] + | [facility] | [address] | [place], [place] | | | [facility] | [address] | [address] | | | TESTS | | | [...] [facility] | [address] | [place], [place] | | | [facility] | [address] | [address] | | | TESTS | | | | + + + + + INTRAPROCEDURE IMAGING (09/22/2019 10:23 AM [facility]) + + | Specimen | + + [...] [facility] | | | | | | CHARITO, POINT | | | | | | [...] [facility] | [address] | [place], [place] | | | [place]O [place] [facility] | [address] | [address] | | | TESTS | | | [...] | | | HOURS, First dose on Fri | | AM PST | | [...] 09/23/19 at | | | 1009, Until Wed09/25/19 at 1904, | | | dyspepsia | [...] + + +---+---+---+ | HYDROmorphone 0.5 mg/mL LIFE EDUCATOR | Rate/Dos | 09/24/20 | | | | | (ADULT STANDARD DOSE) in 0.9 % | e Verify | 19 7:30 | | | | | NaCl LIFE EDUCATOR Dose: 0.5 mg, Lockout | | AM [...] mg | | | | bolus from LIFE EDUCATOR (ADULT STANDARD | from | 19 8:00 | | | | | DOSE) 0.2 mg intravenous, EVERY | Same Bag | PM PST | | | | | 10 MINUTES NEEDED, Starting | | | | | | | 09/22/19 at 1611, Until Sun | | | | | | | 09/24/19 at 0723, LIFE EDUCATOR clinician | | | | | | | rescue bolus. If exceeding 2 | | | | | | | doses in a rolling 60 minute time | | | | | | | frame, contact provider for LIFE EDUCATOR | | | | | | | [...] | | | | 1 dose, Starting Wed09/22/19 at | | | | | | | 2318, Until Wed09/25/19 at 0936, | | | | | [...] tablet 8 mg 8 mg, oral, EVERY | | 19 8:18 | | | [...] | | | | | 2332, Until 09/25/19 at 1904, | | | [...]
--- OUTSIDE RECORDS SUMMARY | ~2020-03-18 | XMS | Encounter Summary ---
Demographics + + + | Address | [address] | | | [place] [address] | + + + | Home Phone [...] [place] | | | | | [address] | | + + + + + Care Team Providers + +------+ + | Care User Experience Developer Name | Role | Phone | [...] | Center at [facility] [address] | MD [address] | | | | | [address] | [place], [place] | | | | | Mailcode: [place] | [address] | | | | | for Health and | [phone] | | | | | [place] [address] | | | | | | [facility] [place] | | | | | | [address] | | | | | | [phone] | | | +--------+ + + + [...]
--- OUTSIDE RECORDS SUMMARY | ~2020-03-18 | XMS | Encounter Summary ---
Demographics + + + | Address | [address] | | | [place] [address] | + + + | Home Phone | | + + + | Preferred Language | Unknown | + + + | Marital Status | | + + + | Taoist Affiliation | CHR | + + + [...] [place] | | | | | [address] | | + + + + + Care Team Providers + +------+ + | Care Senior Patient Account Representative Name | Role | Phone | + +------+ + | Aleshia Martinez PA-C | PCP | | + +------+ + Encounter Details +--------+ + + + + | Date | Type | Department | Care Team | Description | +--------+ + + + + | 04/13/ | Abstract | Digestive Health | Clinic, Surgery | | | 2019 | | [place] [facility] [address] | | | | | | [address] | | | | | | Mailcode: [place] | | | | | | for Health and | | | | | | Healing, Building [address] | | | | | | [place], [place] | | | | | | [address] | | | | | | [phone] | | | +--------+ + + + [...]
--- OUTSIDE RECORDS SUMMARY | ~2020-03-18 | XMS | Encounter Summary ---
Demographics + + + | Address | [address] | | | [place] [address] | + + + | Home Phone [...] [place] | | | | | [address] | | + + + + + Care Team Providers + +------+ + | Care Car Driver Name | Role | Phone | + +------+ + | Aleshia Martinez PA-C | PCP | | + +------+ + Encounter Details +--------+ + + + + | Date | Type | Department | Care Team | Description | +--------+ + + + + | 08/31/ | Procedure | 6A [address] Op [address] | | | | 2018 | Pass | [address] | | | | | | Derick Ureña | | | | | | Hospital Admitting | | | | | | Desk Located on the | | | | | | 9th floor | | | | | | [place], [place] | | | | | | [address] | | | +--------+ + + + [...]
--- OUTSIDE RECORDS SUMMARY | ~2020-03-18 | XMS | Encounter Summary ---
Demographics + + + | Address | [address] | | | [place] [address] | + + + | Home Phone | | + + + | Preferred Language | Unknown | + + + | Marital Status | | + + + | Methodist Affiliation | CHR | + + + [...] [place] | | | | | [address] | | + + + + + Care Team Providers + +------+ + | Care Final Cleaner Name | Role | Phone | + [...] | 2019 | Encounter | Center at [facility] [address] | AGACNP [address] | | | | | [address] | [place], [place] | | | | | Mailcode: Center | [address] | | | | | for Health and | [phone] | | | | | Healing, [address] | | | | | | [place], [place] | | | | | | [address] | | | | | | [phone] | | | +--------+ + + + [...]
--- OUTSIDE RECORDS SUMMARY | ~2020-03-18 | XMS | Encounter Summary ---
Demographics + + + | Address | [address] | | | [place] [address] | + + + | Home Phone [...] Team Providers + +------+ + | Care Grinder Dresser Name | Role | Phone | + [...] | | | | obstruction | | Center for | | | | | or gangrene | | Health and | | | | | | | Healing, | | | | | | | Building [address] | | | | | | | [place], [place] | | | | | | | [address] | | | | | | | Phone: | | | | | | | [phone] | | | | | | | Fax: | | | | | | | [phone] | + +--------+ + + + + Encounter Details +--------+---------+ + + + | Date | Type | Department | Care Team | Description | +--------+---------+ + + + | 11/25/ | Office | Digestive Health | Tea Reece, | S/P laparoscopic | | 2019 | Visit | Center at [facility] [address] | [address] | sleeve gastrectomy | | | | SULLY [facility] | [address] | (Primary Dx) | | | | for Health and | [place], [place] | | | | | [facility] [address] | [address] | | | | | [place], [place] | | | | | | [address] | | | | | | [phone] | | | +--------+---------+ + + + [...] of visit: 10:00 to 10:28 (28 minutes rpfb-jd-xqop with patient) Surgery: Sleeve Gastrectomy Date of [...] B12 daily), and B-complex in addition to pre- vitamin. Pt interested in getting BA capsules [...] progression: Begin stage 4 according to [facility] diet guidelines -Provided written & verbal education/review [...] multivitamin & mineral (with iron) supplement, 2/day -3107-8701 mg calcium citrate with vitamin D/day (take in divided doses, not within 2 hour s of multivitamin or iron supplement) -500 mcg/day sublingual B12 supplement (or monthly injections) Continued to reinforce importance of mindful eating. Continue to increase physical activity. Follow up in [address], Pager # [phone] signed by Tea Reece RD at 11/25/2018 10:38 AM PSTdocument ed in this encounter Plan of Treatment Not on filedocumented as of this encounter Procedures + +--------+ + + + | Procedure Name | Priori | Date/Time | Associated Diagnosis | Comments | | | ty | | | | + +--------+ + + + | [place] MNT RE-ASSESSMNT | Routin | 11/25/2018 | [...]
--- OUTSIDE RECORDS SUMMARY | ~2020-03-18 | XMS | Encounter Summary ---
Demographics + + + | Address | [address] | | | [place] [address] | + + + | Home Phone [...] [place] | | | | | [address] | | + + + + + Care Team Providers + +------+ + | Care Music Producer Name | Role | Phone | + [...] | | 2018 | | Center at [facility] [address] | [address] | ) | | | | [address] | [place], [place] | | | | | Mailcode: [place] | [address] | | | | | for Health and | [phone] | | | | | [place] [address] | | | | | | [place], [place] | | | | | | [address] | | | | | | [phone] | | | +--------+ + + + [...]
--- OUTSIDE RECORDS SUMMARY | ~2020-03-18 | XMS | Encounter Summary ---
Demographics + + + | Address | [address] | | | [place] [address] | + + + | Home Phone [...] [place] | | | | | [address] | | + + + + + Care Team Providers + +------+ + | Care Clamshell Operator Name | Role | Phone | [...] + + | 08/31/ | Hospital | [facility] [address] | Gildardo Downing, | | | 2018 - | Encounter | [address] | [address] | | | | | [place], [place] | [facility] [place] | | | 09/02/ | | [address] | [address] | | | 2017 | | [phone] | [phone] | | | | | | | [...] might be differen t from the original. [facility] [place] RED SURGERY INPATIENT DISCHARGE SUMMARY Author: GAUTAM [...] We will have her follow up with [facility] Bariatric Nurse Practitioner in 1 week and [...] or Kefir, [place]oney[place] Yogurt, and Chioban i Japanese Yogurt are common brands with beneficial probiotics. [...] are available over the counter at most [facility] [employer] stores. Nausea/Vomiting/Difficulty Swallowing Nausea/Vomiting/Difficulty swallowing: Could be [...] hours per your instructions. Some medications, like Aurora, have Tylenol in it. Make sure you [...] (PCP) as this clinic does not provide [facility] chronic pain management services. When to Call [...] hours by calling the surgery office at [phone]. - After hours, weekends and holidays, you may call the hospital audio/visual operator at [phone] an d have the lawn care professional Red Surgery Team paged. Destination Home Condition [...] Acute Care Why: follow up with bariatric RF ENGINEER Contact information [address] [address] Future Appointments Provider Department Dept Phone Center 09/07/2018 10:00 AM Chetna Alves [facility] at [facility] 6th Floor [phone] KATIA D AND NUT 09/07/2018 10:50 AM Emily Martinez [facility] at [facility] 6th Floor [phone] D ig Health 09/29/2018 10:30 AM Tea [facility] at [facility] 6th Floor [phone] F OOD AND NUT 09/29/2018 11:20 AM Gildardo Downing [facility] at [facility] 6th Floor [phone] Di g Health 11/25/2018 10:00 AM [facility] at [facility] 6th Floor [phone] FO OD AND NUT 11/25/2018 10:50 AM Shanon Etienne [facility] at [facility] 6th Floor [phone] Dig [facility] Discharging Physician: GAUTAM Leblanc Attending Physician: Gildardo Downing MD [facility] Red Surgery Pager# [phone] 10:42 AM 09/02/2018 documented in th is [...] Gildardo Downing MD Interval History and Events: HOLLY, VSS. No more nausea or vomiting since PACU. [...] if this helps. Gildardo Downing MD, FACS, [facility] Division of Bariatric Surgery [facility] | [address] [facility] [address] | [place], [place] | [address] | Ludwin Tellez MD - 08/31/2018 8:54 [...] Ludwin Tellez MD General Surgery, PGY1 Pager: [phone] documented in this en counter Plan of [...] GASTRECTOMY | ve | 12:25 PM | ([facility]) | | | | Surgic | [...] results section. | | | | | ([facility]) | | + +--------+ + + + [...] + + + + + + | [facility] | 457 | ms | [facility] [...] + + | [facility] OF | [address] | [place], [place] | | | CARDIOLOGY | [address] | [address] | | + + + + + [...] [facility] | [address] | [place], [place] | | | [facility] [place] | [address] | [address] | | | TESTS | | | [...] [facility] | [address] | [place], [place] | | | [facility] CARE | [address] | [address] | | | TESTS | | | [...] SURGEON: Gildardo Downing MD. | | | BELLMAN CAPTAIN: Jamie Gonzales MD R6. ANESTHESIA: Ke Strong [...] | | | Gildardo Downing MD, FACS, [facility] Bariatric Surgery | | | | | [...] SURGEON: Gildardo Downing MD. | | | BELLMAN CAPTAIN: Jamie Gonzales MD R6. ANESTHESIA: Ke Strong [...] | | | Gildardo Downing MD, FACS, [facility] Bariatric Surgery | | | | | [...] [facility] | [address] | [place], [place] | | | [facility] CARE | [address] | [address] | | | TESTS | | | [...] | | | | First dose on Lucy 09/01/18 at 0900 | | | [...] +--------+---+---+ | HYDROmorphone (DILAUDID) | Given | 08/31/20 | 0.3 mg [...] | | | | | NEEDED, Starting 08/31/18 at | | | | | | | 2045, Until [facility] 09/01/18 at 0611, | | | | [...] | | | | | dose on [facility] 09/01/18 at 0900 | | | | | | + +-------+ +--------+---+---+ +---+---+ | | | +---+---+ documented in this encounter
--- OUTSIDE RECORDS SUMMARY | ~2020-03-18 | XMS | Encounter Summary ---
Demographics + + + | Address | [address] | | | [place] [address] | + + + | Home Phone [...] [place] | | | | | [address] | | + + + + + Care Team Providers + +------+ + | Care Nuclear Powerplant Mechanic Name | Role | Phone | [...] | | | | | | | [place], [place] | | | | | | | [address] | | | | | | | Phone: | | | | | | | [phone] | | | | | | | Fax: | | | | | | | [phone] | + +--------+ + + + + Encounter Details +--------+---------+ + + + | Date | Type | Department | Care Team | Description | +--------+---------+ + + + | 09/07/ | Office | Digestive Health | [address] Alves [address] | S/P laparoscopic | | 2018 | Visit | Center at [facility] [address] | [address] | sleeve gastrectomy | | | | [facility] | [address] [facility], | (Primary Dx); Morbid | | | | for Health and | [place] [address] | obesity with BMI of | | | | [facility] 2 | | 40.0-44.9, adult | | | | [place], [place] | | ([facility]); Borderline | | | | [address] | | diabetes | | | | [phone] | | | +--------+---------+ + + + [...] documented as of this encounter Progress Notes Chetna Alves, JOEL - 09/07/2018 1:00 PM PST Nutrition Counseling: Post-op Bariatric Surgery Follow-Up Patient referred by: No Referring Provider Per Patient NO REFERRING PROVIDER PER PT Documented time of visit: 1:03 to 1:28 (25 minutes fcnb-cv-peyn with patient) Surgery: Sleeve Gastrectomy Date of Surgery: 08/31/18 Subjective: Any reported changes: Wondering if having hunger is normal Tolerating Bariatric Diet: Yes Current Physical Activity: walking Objective: Ht Readings from Last 1 Encounters: 09/07/18 1.702 m (5' 7") Wt Readings from Last 2 Encounters: 09/07/18 115.2 kg (254 lb) 08/31/18 119.2 kg (262 lb 11.2 oz) BMI: 39.8 Weight change since surgery: lost ~8lbs PMHx: Past Medical History: Diagnosis Date Anxiety Asthma Depression Diverticulitis Glucose intolerance (impaired glucose tolerance) HTN (hypertension) Irregular periods Morbid obesity with BMI of 40.0-44.9, adult (HCC) Pneumonia Ventral hernia, recurrent Food logs: No, was in the first 3 days Food choices: Premier, cream of wheat, yogurt, pudding Fluid choices: Water, Popsicles, Powerade Supplementation: multivitamin - Tac[place]'s, calcium with vitamin D - Citracal Petites and vitamin B12 - purchased online. Will purchase Bariatric Fusion today to try. Assessment: No concerns Following Bariatric Diet Protocol: Yes Meeting protein goals: Yes Meeting fluid goals: No but greater than 32oz Fluids from meals: Yes Plan: Reviewed nutrition goals after bariatric surgery. Aim for 64 ounces of fluid and 60-80 grams of protein per day. Continue to follow post-surgery bariatric diet progression: Continue stage 2 full liquid di et for now. On 09/14/18, begin stage 3 according to bariatric diet guidelines: -Provided written & verbal education/review on stage 3 guidelines, including grocery list of stage 3 foods and sample menus. -Begin introducing soft/ground/moist protein foods -Once meeting protein [...] meals by 30 minutes before & after Begin vitamin & mineral supplementation per post-bariatric surgery guidelines -complete multivitamin & mineral (with iron) supplement, 2/day -0588-6563 mg calcium citrate with vitamin D/day (take in divided doses, not within 2 hour s of multivitamin or iron supplement) (if not chewable or liquid, begin 2 weeks post-surgery ) -At 1 month post-op start 500 mcg/day sublingual B12 supplement (or monthly injections) Continued to reinforce importance of mindful eating. Continue to increase physical activity. Follow up at 1 month post-op Chetna Alves RD, CNSC, LD [facility] Bariatrics [phone] documented in this enco unter Plan of Treatment Not on filedocumented as of this encounter Procedures + +--------+ + + + | Procedure Name | Priori | Date/Time | Associated Diagnosis | Comments | | | ty | | | | + +--------+ + + + | [place] MNT RE-ASSESSMNT | Routin | 09/07/2018 | Morbid obesity | | | X15MIN | e | 3:05 PM | with BMI of | | | | | PST | 40.0-44.9, adult | | | | | | (HCC) Borderline | | | | | | diabetes S/P | | | | | | laparoscopic sleeve | | | | | | gastrectomy | | + +--------+ + + + documented in this encounter Visit Diagnoses + + | Diagnosis | + + | S/P laparoscopic sleeve gastrectomy - Primary | + + | Morbid obesity with BMI of 40.0-44.9, adult (HCC) | + + | Borderline diabetes Other abnormal glucose | + + documented in this encounter
--- OUTSIDE RECORDS SUMMARY | ~2020-03-18 | XMS | Encounter Summary ---
Demographics + + + | Address | [address] | | | [place] [address] | + + + | Home Phone [...] [place] | | | | | [address] | | + + + + + Care Team Providers + +------+ + | Care Credit Assessment Analyst Name | Role | Phone | [...] Morbid | BIJAL Calderon | [address] | | | | | obesity with | [address] | | | | | BMI of | [address] | Mailcode: | | | | | 40.0-44.9, | [place], [place] | [facility] | | | | | adult (HCC) | [address] | for Health | | | | | Borderline | Phone: | and Healing, | | | | | diabetes | [phone] | Building 1, | | | | | Essential | Fax: | 15th Floor | | | | | hypertension | [phone] | [place], [place] | | | | | Mild | | [address] | | | | | intermittent | | Phone: | | | | | asthma | | [phone] | | | | | without | | Fax: | | | | | complication | | [phone] | | | | | Anxiety | [...] | [facility] | | | with DESIGN ASSISTANT | | obesity | Ganesh Holden MD | [address] | | | | | (HCC) | [address] | | | | | Procedures | Guillermo Regan | Mailcode: | | | | | CONSULT TO | Shahla Maldonado | [place] for | | | | | BARIATRIC | [place], [place] | [facility] and | | | | | SURGERY | [address] | Healing, | | | | | | | Building 2 | | | | | | | [place], [place] | | | | | | | [address] | | | | | | | Phone: | | | | | | | [phone] | | | | | | | Fax: | | | | | | | [phone] | + + + + + + + Encounter Details +--------+---------+ + + + | Date | Type | Department | Care Team | Description | +--------+---------+ + + + | 01/06/ | Office | Digestive Health | Yumiko Clarke, | Morbid obesity with | | 2017 | Visit | Center at [facility] [address] | ACNP [address] | BMI of 40.0-44.9, | | | | [address] | Ave [place], [place] | adult (HCC) (Primary | | | | Mailcode: Center | [address] | Dx); Borderline | | | | for Health and | [phone] | diabetes; Essential | | | | Healing, Building 2 | | hypertension; Mild | | | | [place], [place] | | intermittent asthma | | | | [address] | | without | | | | [phone] | | complication; | | | | [...] this encounter Patient Instructions Patient Instructions Yumiko Clarke, BIJAL - 01/06/2018 2:05 PM PDTImpression: 1. Borderline diabetes 2. HTN takes atenolol, BP elevated irzzw=356/95 3. Ventral hernia with MESH 4. Hx [...] to your private appointme nt with the intranet support. These classes will be scheduled apporoximately 1 [...] Psychological Evaluation: If your referral is at [facility], The Pain Management Office will call you [...] then schedule with the surgeon. Yumiko APPIAH MANGLE ROLLER Bariatric Surgery Nurse Practitioner [facility] | [address] | [place], [place] | [address] | Potential Contraindications to Bariatric Surgery Age [...] other providers does not guarantee that the [facility] Bariatric Surger y program will deem you a surgical candidate. documented in this encounter Progress Notes Yumiko Clarke ACNP - 01/06/2018 2:05 PM PDTFormatting of this note might be different fr om the original. BARIATRIC INITIAL VISIT Provider: Yumiko APPIAH MANGLE ROLLER Referring Provider: Aleshia Martinez PA-C Reason for [...] diet attempts at age 18 Personally initiated diets:[employer] Programmatic diets: [employer] Physician Monitored diet: UNK Use of Redux or Phen/fen: yes, phentermine but doesn't like side effects Transthoracic ECHO: no Methodist or cultural reason you would refuse blood [...] of lower extremity edema, hyperlipidemia. No CHF, SD, ischemic heart disease, DVT/PE, or pulmonary hypertension. [...] diabetes 2. HTN takes atenolol, BP elevated lksho=552/95 3. Ventral hernia with MESH 4. Hx [...] to your private appointme nt with the intranet support. These classes will be scheduled apporoximately 1 [...] Psychological Evaluation: If your referral is at [facility], The Pain Management Office will call you [...] with the surgeon. Yumiko Clarke DNP ACNP MANGLE ROLLER Bariatric Surgery Nurse Practitioner [facility] | [address] | [place], [place] | [address] | Potential Contraindications to Bariatric Surgery Age [...] other providers does not guarantee that the [facility] Bariatric Surger y program will deem you a surgical candidate. documented in this e ncounter Plan of Treatment Not on filedocumented as [...] | + + + + + | [facility] | [address] | [place] [address] | | | KUSH CORCORAN | SHAHLA [...] | [facility] | | considered for monitoring buttermilk drier operator glycemic control in patients with: | LABORATORY [...] | + + + + + | [facility] | [address] | [place] [address] | | | SERVICES, SPECIAL | SHAHLA [...] | | | | | determined by [employer] | | | | | | Laboratories. See | | | | | | Compliance Statement B: | | | | | | Zapproved.[employer]/CSPerformed | | | | | | by [employer],[address] | | | | | | [facility] | | | | | | [address] | | | | | | [phone].Zapproved. | | | | | | [facility], Gerardo Esquivel MD, | | | | [...] [facility] | [address] | [place], [place] | | | [facility] | | [address] | | + + + + + [...] | | | LABORATORY | | | BANGLADESHI | | | SERVICES, | | | [...] [facility] | [address] | [place] [address] | | | SERVICES, CORE | PARK [...] [facility] | [address] | [place] [address] | | | SERVICES, CORE | PARK [...] | + + + + + | [facility] | [address] | [place] [address] | | | SERVICES, CORE | PARK [...] and | 50 - 200 ng/mL | [facility] | | | | Female >18 years: [...] | + + + + + | [facility] | [address] | [place] [address] | | | KUSH CORCORAN | SHAHLA MALDONADO | | | + [...] | + + + + + | [facility] | [address] | [place] [address] | | | SERVICES, CORE | SHAHLA [...] | + + + + + | [facility] | [address] [place] | [place] [address] | | | SERVICES, CORE | SHAHLA [...] | + + + + + | [facility] | [address] [place] | [place] [address] | | | SERVICES, CORE | SHAHLA [...] + + + + + + | [facility] | [address] | ms | [facility] DEPT [...] + + + + + | [facility] | [address] | [place], [place] | | | CARDIOLOGY | [address] | [address] | | + + + + + [...]
--- OUTSIDE RECORDS SUMMARY | ~2020-03-18 | XMS | Encounter Summary ---
Demographics + + + | Address | [address] | | | [place] [address] | + + + | Home Phone [...] [place] | | | | | [address] | | + + + + + Care Team Providers + +------+ + | Care Clinical Review Nurse Name | Role | Phone | [...] Medicine | Morbid | [place], | [address] | | | | | obesity | Ganesh Holden MD | [place] | | | | | ([facility]) | [address] | [address] | | | | | Procedures | [address] | Physician's | | | | | CONSULT TO | Jessica Sepulveda | [place] 3rd | | | | | HEALTH | [place], [place] | floor | | | | | PROMOTION & | [address] | [place], [place] | | | | | SPORTS | | [address] | | | | | MEDICINE | | Phone: | | | | | PROVIDER | | [phone] | | | | | | | Fax: | | | | | | | [phone] | +--------+--------+ + + + + Consultation [...] | [facility] | | | with DIETITIAN HELPER | | obesity | Ganesh Holden MD | [facility] [address] | | | | | ([facility]) | [address] | [address] | | | | | Procedures | Alonso Regan | Mailcode: | | | | | CONSULT TO | Jessica Sepulveda | Center for | | | | | BARIATRIC | [place], [place] | [facility] and | | | | | SURGERY | [address] | Healing, | | | | | | | Building 2 | | | | | | | [place], [place] | | | | | | | [address] | | | | | | | Phone: | | | | | | | [phone] | | | | | | | Fax: | | | | | | | [phone] | + + + + + + [...] | | | | hernia | | [address] | | | | | without | | Ave | | | | | obstruction | | Mailcode: | | | | | or gangrene | | Center for | | | | | | | Health and | | | | | | | Healing, | | | | | | | Building 2 | | | | | | | [facility] [place] | | | | | | | [address] | | | | | | | Phone: | | | | | | | [phone] | | | | | | | Fax: | | | | | | | [phone] | +--------+--------+ + + + + Encounter Details +--------+---------+ + + + | Date | Type | Department | Care Team | Description | +--------+---------+ + + + | 08/18/ | Office | Digestive Health | Es Bingham W, | Morbid obesity (HCC) | | 2017 | Visit | Center at [facility] [address] | MD [address] | (Primary Dx) | | | | [address] | [place], [place] | | | | | Mailcode: [place] | [address] | | | | | [facility] and | [phone] | | | | | Healing, Building 2 | | | | | | [place], [place] | | | | | | [address] | | | | | | [phone] | | | +--------+---------+ + + + [...] encounter Progress Notes Es Bingham MD - 08/18/2017 12:30 PM PDT ATTENDING NOTE I saw and evaluated the patient. I agree with the findings and the plan of care as ximena pena in the fellow's note. Her risks for hernia formation and therefore recurrent hernia are constipation and morbid obesity. Patient is clear for routine activity as tolerated. Es Bingham MD, [facility], FACS ES BINGHAM MD [facility] 6TH FLOOR [address] Mailcode: [facility] [place] [address] PATRAToSe cesar Pineda MD - 08/18/2017 12:30 PM PDTFormatting of this note might be different from the [facility] Department of Surgery Blue Surgery H&P Author: Ganesh Perez MD MIS Fellow 08/18/2017 12:25 PM ID: Sara Caballero is a 32 y.o. female patient with HTN, glucose intolerance, morbi d obesity, asthma and an recurrent ventral hernia here for a surgical consult. CC: abdominal pain HPI: Sara Caballero is a 32 y.o. female [...] her risk of complications is 35% (per [employer] connie). She is interested to talk to [...] constipation -referral with bariatric program -referral to ward aide -RTC once she has lost weight The above findings and plan were discussed with Dr. Bingham, who agrees. Ganesh Perez MD Minimally Invasive Surgery Fellow [facility] [employer] Pager [phone] documente d in this encounter Plan of Treatment Not on filedocumented as of this encounter Visit Diagnoses + + | Diagnosis | + + | Morbid obesity (HCC) - Primary Morbid obesity | + + documented in this encounter
--- OUTSIDE RECORDS SUMMARY | ~2020-03-18 | XMS | Encounter Summary ---
Demographics + + + | Address | [address] | | | [place] [address] | + + + | Home Phone [...] [place] | | | | | [address] | | + + + + + Care Team Providers + +------+ + | Care Compress Machine Operator Name | Role | Phone | + +------+ + | Aleshia Martinez PA-C | PCP | | + +------+ + Encounter Details +--------+ + + + + | Date | Type | Department | Care Team | Description | +--------+ + + + + | 09/22/ | Procedure | [address] | | | | 2019 | Pass | [address] | | | | | | Derick Ureña | | | | | | Hospital Admitting | | | | | | Desk Located on the | | | | | | 9th floor | | | | | | [place], [place] | | | | | | [address] | | | +--------+ + + + [...]
--- OUTSIDE RECORDS SUMMARY | ~2020-03-18 | XMS | Encounter Summary ---
Demographics + + + | Address | [address] | | | [place] [address] | + + + | Home Phone [...] [place] | | | | | [address] | | + + + + + Care Team Providers + +------+ + | Care Supervisor Asphalt Paving Name | Role | Phone | + [...] | | [address] | Ave [place], [place] | (Bariatric | | | | Mailcode: Center | [address] | questionnaire) | | | | for Health and | [phone] | | | | | [facility], [facility] 2 | | | | | | [place], [place] | | | | | | [address] | | | | | | [phone] | | | +--------+ + + + [...]
--- OUTSIDE RECORDS SUMMARY | ~2020-03-18 | XMS | Encounter Summary ---
Demographics + + + | Address | [address] | | | [place] [address] | + + + | Home Phone [...] [place] | | | | | [address] | | + + + + + Care Team Providers + +------+ + | Care Fat Purification Worker Name | Role | Phone | + +------+ + | No Pcp Per Patient | PCP | Unavailable | + +------+ + Encounter Details +--------+--------+ + + + | Date | Type | Department | Care Team | Description | +--------+--------+ + + + | 07/06/ | Travel [...]
--- OUTSIDE RECORDS SUMMARY | ~2020-03-18 | XMS | Encounter Summary ---
Demographics + + + | Address | [address] | | | [place] [address] | + + + | Home Phone [...] [place] | | | | | [address] | | + + + + + Care Team Providers + +------+ + | Care Recooperer Name | Role | Phone | + +------+ + | No Pcp Per Patient | PCP | Unavailable | + +------+ + Encounter Details +--------+ + + + + | Date | Type | Department | Care Team | Description | +--------+ + + + + | 08/18/ | Abstract | Digestive Health | Es Rausch W, | | | 2016 | | [place] [facility] [address] | MD [address] | | | | | [address] | [facility] [place] | | | | | Mailcode: [place] | [address] | | | | | for Health and | [phone] | | | | | [facility] 2 | | | | | | [place], [place] | | | | | | [address] | | | | | | [phone] | | | +--------+ + + + [...]
--- OUTSIDE RECORDS SUMMARY | ~2020-03-18 | XMS | Encounter Summary ---
Demographics + + + | Address | [address] | | | [place] [address] | + + + | Home Phone [...] [place] | | | | | [address] | | + + + + + Care Team Providers + +------+ + | Care Mortgage Accounting Clerk Name | Role | Phone | [...] | Ave | | | | | ([facility]) | [address] | Mailcode: | | | | | Procedures | Monica | [address] | | | | | PHYSICAL | [place] | for Health | | | | | THERAPY | [address] | and Healing, | | | | | REFERRAL | Phone: | Building 1, | | | | | | | [address]St Floor | | | | | | Fax: | [place], [place] | | | | | | [phone] | [address] | | | | | | | Phone: | | | | | | | [phone] | | | | | | | Fax: | | | | | | | [phone] | +--------+--------+ + + + + Encounter Details +--------+ + + + + | Date | Type | Department | Care Team | Description | +--------+ + + + + | 10/27/ | Engineering Intern | Digestive Health | Marta Simmons, | Morbid obesity (HCC) | | 2018 | | Center at [facility] | AGACNP [address] | (Primary Dx) | | | | [address] | Ave [place], [place] | | | | | Mailcode: Center | [address] | | | | | for Health and | | | | | | Healing, Building 2 | | | | | | [place], [place] | | | | | | [address] | | | | | | [phone] | | | +--------+ + + + [...]
--- OUTSIDE RECORDS SUMMARY | ~2020-03-18 | XMS | Encounter Summary ---
Demographics + + + | Address | [address] | | | [place] [address] | + + + | Home Phone [...] [place] | | | | | [address] | | + + + + + Care Team Providers + +------+ + | Care Thermal Cutting Machine Operator Name | Role | Phone [...] | bariatric | AGACNP [address] | [address] [facility] | | | | | surgery | [address] | [address] | | | | | History of | [place], | [place], | | | | | abdominal | [place] | [place] | | | | | surgery | [address] | [address] | | | | | Recurrent | Phone: | Phone: | | | | | ventral | | [phone] | | | | | hernia | Fax: | Fax: | | | | | Abdominal | [phone] | [phone] | | | | | pain, | [...] 2019 | Encounter | Center at [facility] [address] | AGACNP [address] | | | | | [address] | Ave [place], [place] | | | | | Mailcode: Center | [address] | | | | | for Health and | | | | | | [facility] 2 | | | | | | [place], [place] | | | | | | [address] | | | | | | | [...]
--- OUTSIDE RECORDS SUMMARY | ~2020-03-18 | XMS | Encounter Summary ---
Demographics + + + | Address | [address] | | | [place] [address] | + + + | Home Phone [...] [place] | | | | | [address] | | + + + + + Care Team Providers + +------+ + | Care Business Development Executive Name | Role | Phone | + [...] floor | | | | | | [place], [place] | | | | | | [address] | | | +--------+ + + + [...]
--- OUTSIDE RECORDS SUMMARY | ~2020-03-18 | XMS | Encounter Summary ---
Demographics + + + | Address | [address] | | | [place] [address] | + + + | Home Phone [...] + + + | Author | [facility] | + + + | Organization | [facility] | + + + | Address | Unknown | + + + | Phone | Unavailable | + + + Support + + + + + | Name | Relationship | Address | Phone | + + + + + | Stewart Corbett | ECON | [address] | | | | | [place] | | | | | [address] | | + + + + + Care Team Providers + +------+ + | Care Cutter Gas Name | Role | Phone | + [...] + + + + | 09/22/ | Anesthesia | 6A Intra Op 3181 | Rafi Askew, | | | 2019 | Event | [address] | MD [address] | | | | | Rd [facility] | [address] | | | | | Hospital Admitting | [place], [place] | | | | | Desk Located on the | [address] | | | | | 9th floor | [phone] | | | | | [place], [place] | | | | | | [address] | Austen Wilkinson, | | | | | | OBSTETRICS TECH [address] | | | | | | [address] | | | | | | [place], [place] | | | | | | [address] | | | | | | [phone] | | | | | | | | +--------+ + + + + Anesthesia Record + + + + + | Procedure Name | Responsible | Anesthesia Start | Anesthesia Stop Time | | | Anesthesiologist | Time | | + + + + + | RECURRENT VENTRAL | Rafi Askew MD | 09/22/19 1158 | 09/22/19 9645 | | HERNIA REPAIR AND | | [...] | Meds | +------+ + + + | Name | Total | + + + | propofol (DIPRIVAN) 200 mg | 200 mg | + + + | propofol (DIPRIVAN) 200 mg | 296,337.5 mcg | + + + | succinylcholine | 120 mg | + + + | rocuronium | 50 mg | + + + | lidocaine 2% | 60 mg | + + + | fentaNYL | 250 mcg | + + + | midazolam | 2 mg | + + + | dexamethasone | 8 mg | + + + | ondansetron | 4 mg | + + + | HYDROmorphone | 2 mg | + + + | ceFAZolin | 2,000 mg | + + + | lactated ringers IV | 1,000 mL | + + + + + | Name | + + | O2 FR Avance (Total Liters) | + + | Air FR Avance (l/min) | + + | Insp Sevo | + + | Et Sevo | + + | Insp Iso | + + | Et Iso | + + | Insp N2O % | + + | O2 Flow Rate (Total Liters) | + + | Air Flow rate (L/min) | + + + + | No [...] + + | Incisi | 09/22/19; 1229; Crispni Ireland, | 09/22/19 1229 by | | [...] 09/24/19 0825 by | | al | Zamudio; 16 Fr.; 10 mL; 09/24/19; | Sukhwinder Sherwood RN | Trista Duran, | | Timothy | 0825 | | RN | | er | | | | +--------+ + + + | ETT | 09/22/19; 1212 (created via | 09/22/19 1212 by | 09/22/19 1544 by | | | procedure documentation); 7; | Austen Wilkinson, | Austen Wilkinson, | | | Oral; Cuffed; 09/22/19; 1544 | OBSTETRICS TECH | OBSTETRICS TECH | +--------+ + + + documented in [...] + | ANE ETT | Routin | 09/22/2019 | | Results for this | | | e | 12:35 PM | | procedure are in the | | | | PST | | results section. | + +--------+ + + + documented in this encounter Results ETT (09/22/2019 12:35 PM PST) + + + | Narrative | Performed At | + + + | Austen Wilkinson CRNA 09/22/2019 12:38 PM AIRWAY MANAGEMENT - | | | ETT Time of Placement: 09/22/2019 12:12 PM Intubation Reason: For | | | surgical procedure Location Performed:OR OXYGENATION Patient | | | was preoxygenated Apneic oxygenation Grade: Grade 1 - Ventilated by | | | mask Induction:Rapid sequence, with Cricoid Pressure INTUBATION | | | ATTEMPT 1 Blade Type: Christy Blade #: 3 Laryngoscopic View: | | | Grade I ETT DETAILS ETT Type:Standard, Hi-Lo Cuffed Intubation | | | Type: Oral Cuff Status: Cuffed Size: 7 ETT secured with adhesive | | | tape Depth at Lip: 22 cm Airway Leak: No CONFIRMATION airway | | | not difficult Number of Attempts: 1 Atraumatic placement Positive | | | for EtCO2:Waveform capnography Breath Sounds: Bilateral and equal | | | NARRATIVE Attending was physically present for the critical portions | | | of the procedure as described in the procedure note | | | Attending/Authorizing Provider: Rafi Askew MD Performing | | | Provider: Austen Wilkinson CRNA | | + + + documented in this encounter Visit Diagnoses Not on filedocumented in this encounter Administered Medications + +--------+ + +------+------+ | Medication Order | MAR | Action | Dose | Rate | Site | | | Action | Date | | | | + +--------+ + +------+------+ | ceFAZolin (ANCEF) injection | Given | 09/22/20 | 2,000 mg | | | | INTRAPROCEDURE PRN, Starting Fri | | 19 12:28 | | | | | 09/22/19 at 1228, Until Fri | | PM PST | | | | | 09/22/19 at 1549 | | | | | | + +--------+ + +------+------+ +---+---+ | | | +---+---+ + +-------+ +------+---+---+ | dexamethasone (DECADRON) | Given | 09/22/20 | 8 mg | | | | injection intravenous, | | 19 2:43 | | | | | INTRAPROCEDURE PRN, Starting Fri | | PM PST | | | | | 09/22/19 at 1443, Until Fri | | | | | | | 09/22/19 at 1549 | | | | | | + +-------+ +------+---+---+ +---+---+ | | | +---+---+ + +-------+ +---------+---+---+ | fentaNYL (SUBLIMAZE) injection | Given | 09/22/20 | 150 mcg | | | | intravenous, INTRAPROCEDURE PRN, | | 19 12:23 | | | | | Starting Wed09/22/19 at 1212, | | PM PST | | | | | Until Wed09/22/19 at 1549 | | | | | | + +-------+ +---------+---+---+ +-------+ +---------+---+---+ | Given | 09/22/20 | 100 mcg | | | | | 19 12:12 | | | | | | PM PST | | | | +-------+ +---------+---+---+ +---+---+ | | | +---+---+ + +-------+ +--------+---+---+ | HYDROmorphone (DILAUDID) | Given | 09/22/20 | 0.4 mg | | | | injection INTRAPROCEDURE PRN, | | 19 4:00 | | | | | Starting Fri 29/19 at 1331, | | PM PST | | | | | Until Wed09/22/19 at 1549 | | | | | | + +-------+ +--------+---+---+ +-------+ +--------+---+---+ | Given | 09/22/20 | 0.4 mg | | | | | 19 3:43 | | | | | | PM PST | | | | +-------+ +--------+---+---+ | Given | 09/22/20 | 0.4 mg | | | | | 19 2:58 | | | | | | PM PST | | | | +-------+ +--------+---+---+ +---+---+ | | | +---+---+ + +---------+ +---+---+---+ | lactated ringers IV 10 mL/hr, | New Bag | 09/22/20 | | | | | intravenous, PROCEDURE | | 19 1:33 | | | | | CONTINUOUS, Starting Wed09/22/19 | | PM PST | | | | | at 1030, Until Wed09/22/19 at | | | | | | | 1715 | | | | | | + +---------+ +---+---+---+ +---------+ +---+---+---+ | New Bag | 09/22/20 | | | | | | 19 11:09 | | | | | | AM PST | | | | +---------+ +---+---+---+ +---+---+ | | | +---+---+ + +-------+ +-------+---+---+ | lidocaine PF (XYLOCAINE MPF) 20 | Given | 09/22/20 | 60 mg | | | | mg/mL (2 %) injection | | 19 12:12 | | | | | INTRAPROCEDURE PRN, Starting Fri | | PM PST | | | | | 09/22/19 at 1212, Until Fri | | | | | | | 09/22/19 at 1549 | | | | | | + +-------+ +-------+---+---+ +---+---+ | | | +---+---+ + +-------+ +------+---+---+ | midazolam (PF) (VERSED) | Given | 09/22/20 | 2 mg | | | | injection intravenous, | | 19 11:57 | | | | | INTRAPROCEDURE PRN, Starting Fri | | AM PST | | | | | 09/22/19 at 1157, Until Fri | | | | | | | 09/22/19 at 1600 | | | | | | + +-------+ +------+---+---+ +---+---+ | | | +---+---+ + +-------+ +------+---+---+ | ondansetron (ZOFRAN) injection | Given | 09/22/20 | 4 mg | | | | intravenous, INTRAPROCEDURE PRN, | | 19 2:57 | | | | | Starting 09/22/19 at 1457, | | PM PST | | | | | Until 09/22/19 at 1549 | | | | | | + +-------+ +------+---+---+ +---+---+ | | | +---+---+ + +---------+ +--------+---+---+ | propofol (DIPRIVAN) 200 mg | New Bag | 11/29/20 | 200 mg | | | | intravenous, INTRAPROCEDURE | | 19 12:12 | | | | | CONTINUOUS PRN, Starting Fri | | PM PST | | | | | 09/22/19 at 1212, Until Fri | | | | | | | 09/22/19 at 1549 | | | | | | + +---------+ +--------+---+---+ +---+---+ | | | +---+---+ + +---------+ + +---+---+ | propofol (DIPRIVAN) 200 mg | New Bag | 09/22/20 | 25 | | | | INTRAPROCEDURE CONTINUOUS PRN, | | 19 12:32 | mcg/kg/m | | | | Starting 09/22/19 at 1232, | | PM PST | in | | | | Until 09/22/19 at 1549 | | | | | | + +---------+ + +---+---+ +---+---+ | | | +---+---+ + +-------+ +-------+---+---+ | rocuronium injection | Given | 09/22/20 | 40 mg | | | | intravenous, INTRAPROCEDURE PRN, | | 19 12:23 | | | | | Starting 09/22/19 at 1212, | | PM PST | | | | | Until Wed09/22/19 at 1549 | | | | | | + +-------+ +-------+---+---+ +-------+ +-------+---+---+ | Given | 09/22/20 | 10 mg | | | | | 19 12:12 | | | | | | PM PST | | | | +-------+ +-------+---+---+ +---+---+ | | | +---+---+ + +-------+ +--------+---+---+ | succinylcholine (ANECTINE) | Given | 09/22/20 | 120 mg | | | | injection intravenous, | | 19 12:12 | | | | | INTRAPROCEDURE PRN, Starting Fri | | PM PST | | | | | 09/22/19 at 1212, Until Fri | | | | | | | 09/22/19 at 1549 | | | | | | + +-------+ +--------+---+---+ +---+---+ | | | +---+---+ documented in this encounter"
--- OUTSIDE RECORDS SUMMARY | ~2020-03-18 | XMS | Encounter Summary ---
Demographics + + + | Address | [address] | | | [place] [address] | + + + | Home Phone [...] [place] | | | | | [address] | | + + + + + Care Team Providers + +------+ + | Care Medication Assistant Name | Role | Phone | + +------+ + | Aleshia Martinez PA-C | PCP | | + +------+ + Encounter Details +--------+ + + + + | Date | Type | Department | Care Team | Description | +--------+ + + + + | 11/30/ | MyChart | Digestive Health | Shu | Questions I forgot | | 2020 | Encounter | Center at [facility] [address] | MD Bry[address] | to ask at my check | | | | [address] | [address] | up | | | | Mailcode: Center | [place], [place] | | | | | for Health and | [address] | | | | | [facility] 2 | [phone] | | | | | [place], [place] | | | | | | [address] | | | | | | [phone] | | | +--------+ + + + [...]
--- OUTSIDE RECORDS SUMMARY | ~2020-03-18 | XMS | Encounter Summary ---
Demographics + + + | Address | [address] | | | [place] [address] | + + + | Home Phone [...] + + + | Author | [facility] | + + + | Organization | [facility] | + + + | Address | Unknown | + + + | Phone | Unavailable | + + + Support + + + + + | Name | Relationship | Address | Phone | + + + + + | Stewart Corbett | ECON | [address] | | | | | [place] | | | | | [address] | | + + + + + Care Team Providers + +------+ + | Care Case Advocate Name | Role | Phone | + [...] | 2019 | | Center at [facility] [address]85 | MD [address] | | | | | [address] | [place], [place] | | | | | Mailcode: [place] | [address] | | | | | for Health and | | | | | | [place] [address] | | | | | | [place], [place] | | | | | | [address] | | | | | | | [...]
--- OUTSIDE RECORDS SUMMARY | ~2020-03-18 | XMS | Encounter Summary ---
Demographics + + + | Address | [address] | | | [place] [address] | + + + | Home Phone [...] [place] | | | | | [address] | | + + + + + Care Team Providers + +------+ + | Care Bankruptcy Attorney Name | Role | Phone | + [...] | | [address] | Ave [facility], [place] | encounter) | | | | Mailcode: Center | [address] | | | | | for Health and | [phone] | | | | | [facility] | | | | | | [place], [place] | | | | | | [address] | | | | | | [phone] | | | +--------+ + + + [...]
--- OUTSIDE RECORDS SUMMARY | ~2020-03-18 | XMS | Encounter Summary ---
Demographics + + + | Address | [address] | | | [place] [address] | + + + | Home Phone [...] [place] | | | | | [address] | | + + + + + Care Team Providers + +------+ + | Care Hogshead Hooper Name | Role | Phone | + [...] am | | | | [address] [facility] | [address], | | | | | for Health and | [place] [address] | | | | | Healing, Building [address] | | | | | | [place], [place] | | | | | | [address] | | | | | | [phone] | | | +--------+ + + + [...]
--- OUTSIDE RECORDS SUMMARY | ~2020-03-18 | XMS | Encounter Summary ---
Demographics + + + | Address | [address] | | | [place] [address] | + + + | Home Phone [...] [place] | | | | | [address] | | + + + + + Care Team Providers + +------+ + | Care Mortgage Loan Interviewer Name | Role | Phone | + [...] | Event | [address] | MD [address] | | | | | Rd [facility] | [address] | | | | | Hospital Admitting | [place], [place] | | | | | Desk Located on the | [address] | | | | | 9th floor | [phone] | | | | | [place], [place] | | | | | | [address] | Austen Wilkinson, | | | | | | WOOD BOAT BUILDER SUPERVISOR [address] | | | | | | [address] | | | | | | [place], [place] | | | | | | [address] | | | | | | [phone] | | | | | | | | +--------+ + + + + Anesthesia Record + + + + + | Procedure Name | Responsible | Anesthesia Start | Anesthesia Stop Time | | | Anesthesiologist | Time | | + + + + + | RECURRENT VENTRAL | Raif Askew MD | 09/22/19 1158 | 09/22/19 8785 | | HERNIA REPAIR AND | | [...] | | Oral; Cuffed; 09/22/19; 1544 | WOOD BOAT BUILDER SUPERVISOR | WOOD BOAT BUILDER SUPERVISOR | +--------+ + + + documented in [...]
--- OUTSIDE RECORDS SUMMARY | ~2020-03-18 | XMS | Encounter Summary ---
Demographics + + + | Address | [address] | | | [place] [address] | + + + | Home Phone [...] [place] | | | | | [address] | | + + + + + Care Team Providers + +------+ + | Care Barrel Cooper Name | Role | Phone | [...] | 2018 | Encounter | Center at [facility] | | support group | | | | [address] | | | | | | Mailcode: [place] | | | | | | for Health and | | | | | | Healing, Building [address] | | | | | | [place], [place] | | | | | | [address] | | | | | | [phone] | | | +--------+ + + + [...]
--- OUTSIDE RECORDS SUMMARY | ~2020-03-18 | XMS | Encounter Summary ---
Demographics + + + | Address | [address] | | | [place] [address] | + + + | Home Phone [...] [place] | | | | | [address] | | + + + + + Care Team Providers + +------+ + | Care Director Phone Name | Role | Phone | + +------+ + | Aleshia Martinez PA-C | PCP | | + +------+ + Reason for Visit +--------+ + | Reason | Comments | +--------+ + | Other | Patient seen in [facility] ER | +--------+ + Encounter Details +--------+ + + + + | Date | Type | Department | Care Team | Description | +--------+ + + + + | 01/28/ | Telephone | Digestive Health | ClarkeRolandi, | Other (Patient seen | | 2018 | | Center at [facility] [address] | ACNP [address] | in [facility]) | | | | [address] | Ave [place], [place] | | | | | Mailcode: Center | [address] | | | | | for Health and | [phone] | | | | | [place] [address] | | | | | | [employer], [place] | | | | | | [address] | | | | | | [phone] | | | +--------+ + + + [...]
--- OUTSIDE RECORDS SUMMARY | ~2020-03-18 | XMS | Encounter Summary ---
Demographics + + + | Address | [address] | | | [place] [address] | + + + | Home Phone [...] [place] | | | | | [address] | | + + + + + Care Team Providers + +------+ + | Care Chief Cruiser Name | Role | Phone | + [...]
--- OUTSIDE RECORDS SUMMARY | ~2020-03-18 | XMS | Encounter Summary ---
Demographics + + + | Address | [address] | | | [place] [address] | + + + | Home Phone [...] [place] | | | | | [address] | | + + + + + Care Team Providers + +------+ + | Care Molybdenum Steamer Operator Name | Role | Phone | + +------+ + | Aleshia Martinez PA-C | PCP | | + +------+ + Encounter Details +--------+ + + + + | Date | Type | Department | Care Team | Description | +--------+ + + + + | 10/09/ | MyChart | Digestive Health | Shu | RE: Schedule follow | | 2019 | Encounter | Center at [facility] [address] | MD [address] | up | | | | [address] | [address] | | | | | Mailcode: Center | [place], [place] | | | | | for Health and | [address] | | | | | Healing, Building [address] | [phone] | | | | | [place], [place] | | | | | | [address] | | | | | | [phone] | | | +--------+ + + + [...]
--- OUTSIDE RECORDS SUMMARY | ~2020-03-18 | XMS | Encounter Summary ---
Demographics + + + | Address | [address] | | | [place] [address] | + + + | Home Phone [...] [place] | | | | | [address] | | + + + + + Care Team Providers + +------+ + | Care Executive Meeting Manager Name | Role | Phone | [...]
--- OUTSIDE RECORDS SUMMARY | ~2020-03-18 | XMS | Encounter Summary ---
Demographics + + + | Address | [address] | | | [place] [address] | + + + | Home Phone [...] [place] | | | | | [address] | | + + + + + Care Team Providers + +------+ + | Care Court Stenographer Name | Role | Phone | + [...] Visit | Center at [facility] [address] | | BMI of 40.0-44.9, | | | | [address] | | adult (HCC) (Primary | | | | Mailcode: Center | | Dx) | | | | for Health and | | | | | | [facility], [address] | | | | | | [place], [place] | | | | | | [address] | | | | | | [phone] | | | +--------+---------+ + + + [...] of Class: 2:00/3:00 until 3:00/4:00 (60 minutes twxc-uh-wolc with patient) OBJECTIVE: Height: Ht Readings from [...] or sharing information. Yes [address], [facility], [facility] Bariatrics [phone] documented in this enco unter Plan of Treatment Not on filedocumented as of this encounter Visit Diagnoses + + | Diagnosis | + + | Morbid obesity with BMI of 40.0-44.9, adult (HCC) - Primary | + + documented in this encounter
--- OUTSIDE RECORDS SUMMARY | ~2020-03-18 | XMS | Encounter Summary ---
Demographics + + + | Address | [address] | | | [place] [address] | + + + | Home Phone [...] + + + | Author | [facility] | + + + | Organization | [facility] | + + + | Address | Unknown | + + + | Phone | Unavailable | + + + Support + + + + + | Name | Relationship | Address | Phone | + + + + + | Stewart Corbett | ECON | [address] | | | | | [place] | | | | | [address] | | + + + + + Care Team Providers + +------+ + | Care Senior Label Specialist Name | Role | Phone | [...] | 2018 | Review | Center at [facility] [address] | ACNP [address] | Recommendations | | | | [address] | Ave [place], [place] | | | | | Mailcode: [place] | [address] | | | | | [facility] and | [phone] | | | | | [place] [address] | | | | | | [place], [place] | | | | | | [address] | | | | | | [phone] | | | +--------+ + + + [...]
--- OUTSIDE RECORDS SUMMARY | ~2020-03-18 | XMS | Encounter Summary ---
Demographics + + + | Address | [address] | | | [place] [address] | + + + | Home Phone [...] [place] | | | | | [address] | | + + + + + Care Team Providers + +------+ + | Care Ginning Operator Name | Role | Phone | [...] | MD [address] | Compensation Claim | | | | [address] | [place], [place] | | | | | Mailcode: [place] | [address] | | | | | for Health and | [phone] | | | | | [facility], [place] [address] | | | | | | [facility] [place] | | | | | | [address] | | | | | | [phone] | | | +--------+ + + + [...]
--- OUTSIDE RECORDS SUMMARY | ~2020-03-18 | XMS | Encounter Summary ---
Demographics + + + | Address | [address] | | | [place] [address] | + + + | Home Phone [...] [place] | | | | | [address] | | + + + + + Care Team Providers + +------+ + | Care Bowling Alley Floors Installer Name | Role | Phone | + +------+ + | Aleshia Martinez PA-C | PCP | | + +------+ + Encounter Details +--------+ + + + + | Date | Type | Department | Care Team | Description | +--------+ + + + + | 10/26/ | Documentati | Digestive Health | Clinic, Surgery | | | 2018 | on | Center at [facility] [address] | | | | | | [address] | | | | | | Mailcode: Center | | | | | | for Health and | | | | | | Healing, Building [address] | | | | | | [place], [place] | | | | | | [address] | | | | | | [phone] | | | +--------+ + + + [...]
--- OUTSIDE RECORDS SUMMARY | ~2020-03-18 | XMS | Encounter Summary ---
Demographics + + + | Address | [address] | | | [place] [address] | + + + | Home Phone [...] Author + + + | Author | [facility] | + + + | Organization | [facility] | + + + | Address | Unknown | + + + | Phone | Unavailable | + + + Support + + + + + | Name | Relationship | Address | Phone | + + + + + | Stewart Corbett | ECON | [address] | | | | | [place] | | | | | [address] | | + + + + + [...] | | | | Hospital Admitting | [place], [place] | | | | | Desk Located on the | [address] | | | | | 9th floor | [phone] | | | | | [place], [place] | | | | | | [address] | | | +--------+---------+ + + + [...] e different from the original. [facility] [place]ERY TEAM INPATIENT DISCHARGE SUMMARY Author: Shayne Laguerre DNP AGACNP-BC Attending Physician: Bryson Ireland MD PCP: Aleshia Martinez PA-C Admission Date: 09/22/2019 Discharge Date: 09/25/2019 Diagnosis: Recurrent incarcerated incisional ventral hernia. Procedure: 1.Exploratory laparotomy. 2.Excision of prior hernia mesh c4andfidwy pieces.2.5 hours spent exc ising mesh including [...] labs/studies: None Discharging Provider: Shayne Laguerre DNP [facility] Attending Physician: MD Shayne Mcdonough [facility] Pager# [phone] 9:06 AM 09/25/2019 Vega colunga in this [...] hours by calling the surgery office at [phone]. After hours, weekends and holidays, you may call the hospital sweeper operator highways at [phone] and have the international trade specialist Green Team for general surgery paged. Discharge [...] every 4-6 hours. Tylenol: You may use svji-yuy-uqstjvv (OTC) acetaminophen (Tylenol) for milder pain. Do [...] medications with Hydrocodone such as Vicodin or Jackson. It is important to keep track of [...] are recommended. Discharge Instr - Diagnoses Shayne Worhty AGACNP - 09/25/2019 8:58 AM PSTRec urrent [...] out a dark red color and becomes punchboard assembler and eventually a straw color. * Wash [...] removal. If you live ou t [facility], we will plan to talk with [...] Hilda Chua MD - 09/24/2019 6:38 [facility] Admission Date: [...] incarcerated incisional hernia s/p repair. -transition from DIESEL ENGINE MECHANIC APPRENTICE to orals -continue drain. #low UOP -resolving, [...] #Recurrent incarcerated incisional hernia s/p repair. -continue DIESEL ENGINE MECHANIC APPRENTICE and stafford until tomorrow -continue drain. #low [...] [facility] | [address] | [place] [address] | | | SERVICES, CORE | PARK [...] + + | [facility] | [address] | [place] [address] | | | SERVICES, CORE | PARK [...] | | | LABORATORY | | | LATVIAN | | | SERVICES, | | | [...] MDRD equation recommended by the National | [facility] | | Kidney Disease Education [...] | + + + + + | [facility] | [address] | [place] [address] | | | NILO, KUSH | SHAHLA [...] [facility] | [address] | [place] [address] | | | SERVICES, CORE | PARK [...] [facility] | [address] | [place], [place] | | | [facility] | [address] | [address] | | | TESTS | | | [...] [facility] | [address] | [place], [place] | | | [facility] | [address] | [address] | | | TESTS | | | [...] Lopez [facility] | [address] | [place], [place] | | | [facility] | [address] | [address] | | | TESTS | | | [...]
--- OUTSIDE RECORDS SUMMARY | ~2020-03-18 | XMS | Encounter Summary ---
Demographics + + + | Address | [address] | | | [place] [address] | + + + | Home Phone [...] [place] | | | | | [address] | | + + + + + Care Team Providers + +------+ + | Care Packing Machine Feeder Name | Role | Phone | + [...] + + | 10/05/ | Office | Digestive Health | Shu, | Recurrent ventral | | 2019 | Visit | Center at [facility] [address] | MD Yann [address] | hernia (Primary Dx); | | | | [address] | [address] | Abnormal intestinal | | | | Mailcode: Center | [place], [place] | absorption; Vitamin | | | | for Health and | [address] | D deficiency; S/P | | | | Healing, Building 2 | [phone] | laparoscopic sleeve | | | | [place], [place] | | gastrectomy; H/O | | | | [address] | | bariatric surgery; | | | | [phone] | | Postop check | +--------+---------+ + + + Social History [...] + + + | Blood Pressure | 128/82 | 10/05/2019 2:02 PM | | | | | PST | | + + + + + | Pulse | 64 | 10/05/2019 2:02 PM | | | | | PST | | + + + + + | Temperature | 36.6 C (97.8 F) | 10/05/2019 2:02 PM | | | | | PST | | + + + + + | Respiratory Rate | - | - | | + + + + + | Oxygen Saturation | 100% | 10/05/2019 2:02 PM | | | | | PST | | + + + + + | Inhaled Oxygen | - | - | | | Concentration | | | | + + + + + | Weight | 75.5 kg (166 lb 6.4 | 10/05/2019 2:02 PM | | | | oz) | PST | | + + + + + | Height | 170.2 cm (5' 7") | 10/05/2019 2:02 PM | | | | | PST | | + + + + + | Body Mass Index | 26.06 | 10/05/2019 2:02 PM | | | [...] of this encounter Patient Instructions Patient Instructions Severino Mcclain - 10/05/2019 1:50 PM PST Drain site care: Continue to dress the drain site until it no longer is draining. Do not submerge the prior drain site in water (pool/bath) until the wound has completely healed over. That is, keep up from being submerged for at least 1 week. When you shower, keep the drain site dry for the next 2 days and be sure to use a dressi ng that does not allow any water into the wound. Continue to restrict lifting to less than 25 lbs. Okay to continue with cardiovascular acti vity and light resistance training of extremities. Avoid activities that increase abdominal pressure (eg crunches, bench press, planks), as well as lunges and squats for another 4-6 we eks. Then, when ready, start slowly, only gradually increasing resistance. Listen to your ruth dy; if a certain activity causes you discomfort, discontinue the activity or switch to a lig hter resistance. Follow up in 3 months and as needed, but call with any questions or concerns. Return veronika ner if you continue to have severe pain.Electronically signed by Severino Mcclain at 9 2:45 PM PST documented in this encounter Progress Notes Yann Ireland MD - 10/05/2019 1:50 PM PSTGENERAL SURGERY POSTOP FOLLOW UP DATE OF VISIT: 10/05/2019 REASON FOR VISIT: Postop check (2 weeks) DATE OF ADMISSION--DISCHARGE: 09/22/2019 - 09/25/2019 (4 days) DIAGNOSIS: Recurrent incarcerated incisional ventral hernia PROCEDURE: 1. Exploratory laparotomy. 2. Excision of prior hernia mesh [id number] pieces.2.5 hours spent excising mesh includ ing debridement of the dense scar, some fascia, muscle, and adipose. 3.Retromuscular repair of recurrent incisional hernia. FINDINGS: The patient had multiple pieces of mesh (including marlex, composix, and another piece prob able polyester) that had been placed intra-abdominally and were adhesed to the underlying sm all intestine and colon. One area appeared to be near fistulization into bowel. This was th e composix mesh where the PTFE portion had folded to expose the polypropylene to the bowel. The serosa of the small intestine was fused to the mesh. There was no evidence of active i nfection or current fistulization. Three pieces of mesh were removed with 2.5 hours of care ful dissection being cautious not to injure bowel or bladder. A 4th piece of mesh was parti ally removed; however, it was densely adherent to the patient's sigmoid colon and bladder an d was well incorporated and further dissection was deemed not to be safe. This did not inte rfere with our ability to perform a good hernia repair. It was therefore left in situ. INTERVAL HISTORY: Sara Caballero is a 34 y.o. female s/p exploratory laparotomy wit h mesh explant, including debridement of dense scar, fascia, muscle, and adipose, with retro muscular repair of recurrent incarcerated hernia, here for 2 week postop check. Of note, the patient called on 10/02/2019 with complaints of white tissue building up around her drain tube, with the inside of the tube getting darker and reports of tissue within the drain tube. She also reported having developed a rash around the drain and other incisions. TODAY IN CLINIC: Today, patient reports that she is having significant pain in the LLQ "like someone is pull ing on [her] muscle". The pain gets worse with even light touch of the skin. She has a lot o f skin irritation at the sites of mesh fixation where the skin glue is. She is tolerating PO with normal non-bloody BMs. She is urinating more easily than before surgery. Her drain is putting out ~20-25 cc daily. No pus in the drain output. PHYSICAL EXAMINATION: BP 128/82 | Pulse 64 | Temp 36.6 C (97.8 F) | Ht 1.702 m (5' 7") | Wt 75.5 kg (166 lb 6.4 oz) | SpO2 100% | BMI 26.06 kg/m | BSA 1.89 m SURGICAL SITE: LLQ pain at the site of mesh fixation. Otherwise midline wound is healing w ell. Some skin irritation at sites of glue application but no purulent material noted Drain with serosanguinous fluid. Single suture cut, suction released, and drain pulled with moderate tenderness at the drain site. IMPRESSION: A 34 y.o. female s/p exploratory laparotomy with mesh explant, including debri david of dense scar, fascia, muscle, and adipose, with retromuscular repair of recurrent in carcerated hernia, now 2 weeks postop. There is no evidence of fluid collection, infection, or hernia recurrence at this time. She does have LLQ pain at a site of mesh fixation which I suspect will improve with time. PLAN: Continue to restrict lifting to less than 25 lbs. Okay to continue with cardiovascular a ctivity and light resistance training of extremities. Avoid activities that increase abdomin al pressure (eg crunches, bench press, planks), as well as lunges and squats for another 4-6 weeks. Drain site care: Continue to dress the drain site until it no longer is draining. Do not submerge the prior drain site in water (pool/bath) until the wound has completely he aled over. That is, keep up from being submerged for at least 1 week. When showering, keep the drain site dry for the next 2 days and be sure to use a dressing t hat does not allow any water into the wound. Abdominal binder as needed for comfort. I added that wearing a T-shirt underneath binder may prevent uncomfortable chaffing. May return to work in 12/24/2019. We are happy to fill out any paperwork outlining this timeline. Follow up in 3 months and PRN, but call with any questions or concerns. Return sooner if she continues to have severe pain. I am Severino Mcclain functioning as a scribe for Yann Ireland MD at 2:40 PM on 019 I have reviewed and verified the above scribed note of my visit with this patient as record ed by Severino Mcclain. YANN IRELAND MD [facility] [address] [facility] Mailcode: [place] [address] documented in this encounter Plan of Treatment Not on filedocumented as of this encounter Visit Diagnoses + + | Diagnosis | + + | Recurrent ventral hernia - Primary Incisional hernia without mention of obstruction | | or gangrene | + + | Abnormal intestinal absorption Unspecified intestinal malabsorption | + + | Vitamin D deficiency | + + | S/P laparoscopic sleeve gastrectomy | + + | H/O bariatric surgery Bariatric surgery status | + + | Postop check Follow-up examination, following unspecified surgery | + + documented in this encounter
--- OUTSIDE RECORDS SUMMARY | ~2020-03-18 | XMS | Encounter Summary ---
Demographics + + + | Address | [address] | | | [place] [address] | + + + | Home Phone | | + + + | Preferred Language | Unknown | + + + | Marital Status | | + + + | Confucianism Affiliation | CHR | + + + [...] [place] | | | | | [address] | | + + + + + Care Team Providers + +------+ + | Care Manager Mining Name | Role | Phone | + [...] 2019 | Encounter | Center at [facility] [address] | AGACNP [address] | | | | | [address] | [place], [place] | | | | | Mailcode: Center | [address] | | | | | for Health and | [phone] | | | | | Healing, Building 2 | | | | | | [place], [place] | | | | | | [address] | | | | | | | [...]
--- OUTSIDE RECORDS SUMMARY | ~2020-03-18 | XMS | Encounter Summary ---
Demographics + + + | Address | [address] | | | [place] [address] | + + + | Home Phone [...] [place] | | | | | [address] | | + + + + + Care Team Providers + +------+ + | Care Jail Keeper Name | Role | Phone | [...] | 2018 | Encounter | Center at [facility] [address] | | | | | | [address] | | | | | | Mailcode: Center | | | | | | for Health and | | | | | | Healing, Building 2 | | | | | | [place], [place] | | | | | | [address] | | | | | | [phone] | | | +--------+ + + + [...]
--- OUTSIDE RECORDS SUMMARY | ~2020-03-18 | XMS | Encounter Summary ---
Demographics + + + | Address | [address] | | | [place] [address] | + + + | Home Phone [...] [place] | | | | | [address] | | + + + + + Care Team Providers + +------+ + | Care Mechanic Marine Engine Name | Role | Phone | + [...] | 2017 | Visit | Center at [facility] [address] | | body mass index of | | | | [address] | | 40.0-44.9 in adult | | | | Mailcode: Center | | ([facility]) (Primary Dx) | | | | for Health and | | | | | | [facility] 2 | | | | | | [place], [place] | | | | | | [address] | | | | | | [phone] | | | +--------+---------+ + + + [...] of Class: 2:00/3:00 until 3:00/4:00 (60 minutes sbfa-[id number] with patient) OBJECTIVE: Height: Ht Readings from [...] sharing information. Yes Carmen Dumont RD,LD Pager# [phone] Phone: [phone] documented in this en counter Plan of Treatment Not on filedocumented as of this encounter Visit Diagnoses + + | Diagnosis | + + | Morbid obesity with body mass index of 40.0-44.9 in adult (HCC) - Primary | + + documented in this encounter
--- OUTSIDE RECORDS SUMMARY | ~2020-03-18 | XMS | Encounter Summary ---
Demographics + + + | Address | [address] | | | [place] [address] | + + + | Home Phone [...] [place] | | | | | [address] | | + + + + + Care Team Providers + +------+ + | Care Ham Marker Name | Role | Phone | + +------+ + | Aleshia Martinez PA-C | PCP | | + +------+ + Encounter Details +--------+ + + + + | Date | Type | Department | Care Team | Description | +--------+ + + + + | 06/23/ | Abstract | Digestive Health | Clinic, Surgery | | | 2017 | | [place] at [facility] [address] | | | | | | [address] | | | | | | Mailcode: [place] | | | | | | for Health and | | | | | | Healing, Building 2 | | | | | | [place], [place] | | | | | | [address] | | | | | | [phone] | | | +--------+ + + + [...]
--- OUTSIDE RECORDS SUMMARY | ~2020-03-18 | XMS | Encounter Summary ---
Demographics + + + | Address | [address] | | | [place] [address] | + + + | Home Phone [...] [place] | | | | | [address] | | + + + + + Care Team Providers + +------+ + | Care Case Management Manager Name | Role | Phone | [...] | | | | | hernia | [address] [facility] | | | | | | Procedures | [address] | | | | | | CT ABDOMEN | Rd | | | | | | AND PELVIS | [place], [place] | | | | | | [place] | [address] | | | | | | CONTRAST | Phone: | | | | | | | [phone] | | | | | | | Fax: | | | | | | | [phone] | | + +--------+ + + + [...] Patient's Condition | | 2019 | | [place] [address] [address] | MD [address] | Worsened | | | | [address] | [address] | | | | | Mailcode: [place] | [place], [place] | | | | | [facility] and | [address] | | | | | [facility] 2 | [phone] | | | | | [place], [place] | | | | | | [address] | | | | | | [phone] | | | +--------+ + + + [...]
--- OUTSIDE RECORDS SUMMARY | ~2020-03-18 | XMS | Encounter Summary ---
Demographics + + + | Address | [address] | | | [place] [address] | + + + | Home Phone [...] [place] | | | | | [address] | | + + + + + Care Team Providers + +------+ + | Care Space And Missile Defense Operations Name | Role | Phone | + [...] at | | | | | | [facility] | | | | | | [address] | | | | | | Mail Code: OC8PM | | | | | | [facility] | | | | | | and Healing, | | | | | | [address] | | | | | | [place], [place] | | | | | | [address] | | | | | | [phone] | | | +--------+ + + + + Anesthesia Record + + + + + | Procedure Name | Responsible | Anesthesia Start | Anesthesia Stop Time | | | Anesthesiologist | Time | | + + + + + | RECURRENT VENTRAL | Raif Askew MD | 09/22/19 1158 | 09/22/19 9195 | | HERNIA REPAIR AND | | [...] | | Oral; Cuffed; 09/22/19; 1544 | FIELD TECH | FIELD TECH | +--------+ + + + documented [...] exist, including nicotine patches and gum. The [place] Quit Line can also be reached at 1.800.QUIT.NOW ( ) or online at [email or web address]. Surgery check-in location: [facility] Surgery Check in Time: you will receive a call 1-3 business days before your surgery confi rming your exact arrival/check-in time for your surgery day. We know that planning for surg lyndsay can be stressful and involve a lot of family/friend/transportation coordination as well as hotel arrangements. The [facility] does not have access to check in [facility], and we encourage you to contact your [...] ch as Uber/Lyft), or public transportation. An Uber/Lyft/hazardous materials driver does not count as the responsible [...] it is after office hours, call the [facility] paper machine operator at [phone] and ask them to page him or h er. documented in this encounter Plan of Treatment Not on filedocumented as of this encounter Visit Diagnoses Not on filedocumented in this encounter
--- OUTSIDE RECORDS SUMMARY | ~2020-03-18 | XMS | Encounter Summary ---
Demographics + + + | Address | [address] | | | [place] [address] | + + + | Home Phone [...] [place] | | | | | [address] | | + + + + + Care Team Providers + +------+ + | Care Adobe Architect Name | Role | Phone | + +------+ + | No Pcp Per Patient | PCP | Unavailable | + +------+ + Encounter Details +--------+ + + + + | Date | Type | Department | Care Team | Description | +--------+ + + + + | 09/21/ | Abstract | Digestive Health | Clinic, Surgery | | | 2016 | | [place] at [facility] [address] | | | | | | [address] | | | | | | Mailcode: [place] | | | | | | Health and | | | | | | Healing, Building 2 | | | | | | [place], [place] | | | | | | [address] | | | | | | [phone] | | | +--------+ + + + [...]
--- OUTSIDE RECORDS SUMMARY | ~2020-03-18 | XMS | Encounter Summary ---
Demographics + + + | Address | [address] | | | [place] [address] | + + + | Home Phone [...] [place] | | | | | [address] | | + + + + + Care Team Providers + +------+ + | Care Home Theatre Technician Name | Role | Phone | [...]
--- OUTSIDE RECORDS SUMMARY | ~2020-03-18 | XMS | Encounter Summary ---
Demographics + + + | Address | [address] | | | [place] [address] | + + + | Home Phone [...] [place] | | | | | [address] | | + + + + + Care Team Providers + +------+ + | Care Building Construction Superintendent Name | Role | Phone | + +------+ + | Aleshia Martinez PA-C | PCP | | + +------+ + Reason for Visit + + + | Reason | Comments | + + + | Follow-up encounter | | + + + Encounter Details +--------+ + + + + | Date | Type | Department | Care Team | Description | +--------+ + + + + | 10/02/ | Telephone | Digestive Health | Shu, | Follow-up encounter | | 2019 | | Center at [facility] [address] | MD [address] | | | | | [address] | [address] | | | | | Mailcode: [place] | [place], [place] | | | | | [facility] and | [address] | | | | | [facility] 2 | [phone] | | | | | [place], [place] | | | | | | [address] | | | | | | [phone] | | | +--------+ + + + [...]
--- OUTSIDE RECORDS SUMMARY | ~2020-03-18 | XMS | Encounter Summary ---
Demographics + + + | Address | [address] | | | [place] [address] | + + + | Home Phone [...] + + + | Author | [facility] | + + + | Organization | [facility] | + + + | Address | Unknown | + + + | Phone | Unavailable | + + + Support + + + + + | Name | Relationship | Address | Phone | + + + + + | Stewart Corbett | ECON | [address] | | | | | [place] | | | | | [address] | | + + + + + Care Team Providers + +------+ + | Care Administrative Resources Associate Name | Role | Phone | [...] | | 2018 | | Center at [facility] [address] | MD [address] | scheduling, possible | | | | [address] | [place], [place] | GERD symptoms) | | | | Mailcode: [place] | [address] | | | | | [facility] Health and | | | | | | [facility] 2 | | | | | | [place], [place] | | | | | | [address] | | | | | | | [...]
--- OUTSIDE RECORDS SUMMARY | ~2020-03-18 | XMS | Encounter Summary ---
Demographics + + + | Address | [address] | | | [place] [address] | + + + | Home Phone | | + + + | Preferred Language | Unknown | + + + | Marital Status | | + + + | Congregational Affiliation | CHR | + + + [...] [place] | | | | | [address] | | + + + + + Care Team Providers + +------+ + | Care Architectural Renderer Name | Role | Phone | + [...] | on | Center at [facility] [address] | | | | | | [address] | | | | | | Mailcode: Center | | | | | | for Health and | | | | | | Healing, Building 2 | | | | | | [place], [place] | | | | | | [address] | | | | | | [phone] | | | +--------+ + + + [...]
--- OUTSIDE RECORDS SUMMARY | ~2020-03-18 | XMS | Encounter Summary ---
Demographics + + + | Address | [address] | | | [place] [address] | + + + | Home Phone [...] [place] | | | | | [address] | | + + + + + Care Team Providers + +------+ + | Care Poultry Breeder Name | Role | Phone | + [...] 2019 | Encounter | Center at [facility] [address] | MD [address] | follow up | | | | [address] | [place], [place] | appointment | | | | Mailcode: Center | [address] | | | | | for Health and | [phone] | | | | | Healing, Building 2 | | | | | | [place], [place] | | | | | | [address] | | | | | | [phone] | | | +--------+ + + + [...]
--- OUTSIDE RECORDS SUMMARY | ~2020-03-18 | XMS | Encounter Summary ---
Demographics + + + | Address | [address] | | | [place] [address] | + + + | Home Phone [...] [place] | | | | | [address] | | + + + + + Care Team Providers + +------+ + | Care Neck Cutter Name | Role | Phone | [...] | 2019 | Visit | Center at [facility] [address] | MD [address] | hernia (Primary Dx); | | | | [address] | [address] | Abnormal intestinal | | | | Mailcode: Center | [place], [place] | absorption; Vitamin | | | | for Health and | [address] | D deficiency; S/P | | | | Healing, Building 2 | [phone] | laparoscopic sleeve | | | | [place], [place] | | gastrectomy; H/O | | | | [address] | | bariatric surgery; | | | | [phone] | | Postop check | +--------+---------+ + [...] laparotomy. 2. Excision of prior hernia mesh [id number] pieces.2.5 hours spent excising mesh includ ing [...] ed by Severino Mcclain. YANN IRELAND MD [facility] AT [facility] [address] [facility] Mailcode: [place] [address] documented in this encounter Plan [...]
--- OUTSIDE RECORDS SUMMARY | ~2020-03-18 | XMS | Encounter Summary ---
Demographics + + + | Address | [address] | | | [place] [address] | + + + | Home Phone [...] [place] | | | | | [address] | | + + + + + Care Team Providers + +------+ + | Care Field Artillery Radar Operator Name | Role | Phone | + +------+ + | Aleshia Martinez PA-C | PCP | | + +------+ + Encounter Details +--------+ + + + + | Date | Type | Department | Care Team | Description | +--------+ + + + + | 06/22/ | Telephone | Digestive Health | Gildardo Downing, | | | 2017 | | Center at [facility] [address] | [address] | | | | | [address] | [place], [place] | | | | | Mailcode: Center | [address] | | | | | for Health and | [phone] | | | | | [facility], Building 2 | | | | | | [place], [place] | | | | | | [address] | | | | | | [phone] | | | +--------+ + + + [...]
--- OUTSIDE RECORDS SUMMARY | ~2020-03-18 | XMS | Encounter Summary ---
Demographics + + + | Address | [address] | | | [place] [address] | + + + | Home Phone [...] [place] | | | | | [address] | | + + + + + Care Team Providers + +------+ + | Care Reproductive Healthcare Assistant Name | Role | Phone | + +------+ + | Aleshia Martinez PA-C | PCP | | + +------+ + Reason for Visit +--------+ + | Reason | Comments | +--------+ + | Other | Patient seen in [facility] | +--------+ + Encounter Details +--------+ + + + + | Date | Type | Department | Care Team | Description | +--------+ + + + + | 01/28/ | Telephone | Digestive Health | ClarkeRolandi, | Other (Patient seen | | 2018 | | Center at [facility] [address] | ACNP [address] | in [facility]) | | | | [address] | Ave [place], [place] | | | | | Mailcode: Center | [address] | | | | | for Health and | [phone] | | | | | [place] [address] | | | | | | [place], [place] | | | | | | [address] | | | | | | [phone] | | | +--------+ + + + [...]
--- OUTSIDE RECORDS SUMMARY | ~2020-03-18 | XMS | Encounter Summary ---
Demographics + + + | Address | [address] | | | [place] [address] | + + + | Home Phone [...] [place] | | | | | [address] | | + + + + + Care Team Providers + +------+ + | Care Iron Worker Apprentice Name | Role | Phone | + [...] | | 2019 | | Center at [facility] [address] | AGACNP [address] | Received | | | | [address] | [place], [place] | | | | | Mailcode: Center | [address] | | | | | for Health and | [phone] | | | | | [facility] 2 | | | | | | [place], [place] | | | | | | [address] | | | | | | [phone] | | | +--------+ + + + [...]
--- OUTSIDE RECORDS SUMMARY | ~2020-03-18 | XMS | Clinical Summary ---
Demographics + + + | Address | [address] | | | [place] [address] | + + + | Home Phone | | + + + | Preferred Language | Unknown | + + + | Marital Status | | + + + | Sabianist Affiliation | CHR | + + + | Race | White | + + + | Ethnic Group | Not or | + + + Author + + + | Author | [facility] | + + + | Organization | [facility] | + + + | Address | Unknown | + + + | Phone | Unavailable | + + + Support + + + + + | Name | Relationship | Address | Phone | + + + + + | Stewart Corbett | ECON | [address] | | | | | [place] | | | | | [address] | | + + + + + Care Team Providers + +------+ + | Care Gaming Worker Name | Role | Phone | + +------+ + | Aleshia Martinez PA-C | PCP | | + +------+ + Source Comments CANDY is fully live on both EpicCare Ambulatory and EpicCare InPatient.[facility] Allergies + + + + + [...] | Latex | Rash | Medium | 08/18/20 | | | | | | 17 | | + + + + + + | Naproxen | Rash | Medium | 08/18/20 | | | | | | 17 | | + + + + + + | Ostomy Adhesive | Hives, Rash | Medium | 11/30/19 | | | | | | 20 | | + + + + + + Medications + + + +---------+------+------+-------+ | Medication | Sig | Dispensed | Refills | Star | End | Statu | | | | | | t | Date | s | | | | | | Date | | | + + + +---------+------+------+-------+ | fluticasone [...] + | | Additional | | | InformationPatient | | | not taking. Reported | | | on 10/05/2019 2:10 | | | PM | +---+ + + + +---------+---+------+---+-------+ | ergocalciferol | Take 1 capsule by | 52 | 0 | 08/25 | | Activ | | 50,000 unit oral | mouth every seven | capsule | | 02/11 | | e | | capsuleIndications: | days. Indications: | | | 18 | | | | vitamin D deficiency | Vitamin D Deficiency | | | | | | | (high dose therapy) | (High Dose Therapy) | | | | | | + + +---------+---+------+---+-------+ | nystatin 100,000 | Apply to affected | 15 g | 2 | 02/0 | | Activ | | unit/gram topical | area two times | | | 11/13 | | e | | powder | [...] mouth once daily. | capsule | | 04/13 | | e | | release(DR/EC) | [...] | | e | + + +---------+---+------+---+-------+ | ondansetron ODT 8 | Dissolve 0.5 tablets | 8 | 0 | 12/0 | | Activ | | mg oral | on tongue and | tablet | | 2/20 | | e | | tablet,disintegratin | swallow every twelve | | | 19 | | | | g | hours as needed. | | | | | | + + +---------+---+------+---+-------+ | polyethylene | Mix 1 packet and | | 0 | 12/0 | | Activ | | glycol 17 gram oral | take orally once | | | 2/20 | | e | | powder in packet | daily as needed. The | | | 19 | | | | | goal is to have a | | | | | | | | bowel movement every | | | | | | | | other day | | | | | | + + +---------+---+------+---+-------+ +---+ + | | Additional | | | InformationPatient | | | not taking. Reported | | | on 11/30/2019 1:43 | | | PM | +---+ + + + + +---+------+---+-------+ | acetaminophen 500 | Take 1-2 tablets by | 60 | 0 | 12/0 | | Activ | | mg oral tablet | mouth every six | tablet | | 2/20 | | e | | | hours as needed. | | | 19 | | | + + + +---+------+---+-------+ | lidocaine 5 % | Apply 1 patch to | 3 patch | 0 | 12/0 | | Activ | | topical adhesive | skin once daily. | | | 6/20 | | e | | patch,medicated | Apply patch to most | | | 19 | | | | | painful area; Patch | | | | | | | | may remain in place | | | | | | | | for up to 12 hours | | | | | | | | in any 24-hour | | | | | | | | period. | | | | | | + + + +---+------+---+-------+ Active Problems + + + | Problem [...] + + | 12/27/ | MyChart | Surgery | [place], | RE: Signed note | | 2019 | Encounter | | MD Bryson | needed | +--------+ + + + + from Last 3 Months Immunizations + + + + | Name | Administration Dates | Next Due | + + + + | Influenza, | 09/25/2019 | | | injectable, | | | | quadrivalent, | | | | preservative free | | | | (IIV4) | | | + + + + Family History + + +------+ + | [...] + + + + Plan of Treatment + + + + + | Health Maintenance | Due Date | Last Done | Comments | + + + + + | Pneumococcal | | | | | vaccination (1 of 1 | 3 | | | | - PPSV23) | | | | + + + + + | Influenza (Flu) | Completed | 09/25/2019 | | | vaccination | | | | + + + [...] - | | | | | | /[id number] | | [id number]: Qty: 2 on | | | | | | 245 | | 08/31/2018 by Gildardo Downing | | | | | | | | MD Navin at [facility] RE[facility] | | | | | | [...] - | | | | | | /[id number] | | [id number]: Qty: 2 on | | | | | | 248 | | 08/31/2018 by Gildardo Downing | | | | | | | | MD Navin at [facility] | | | | | | | | LOC | | | | | | | + +------+--------+ +--------+--------+--------+ | Mesh Surgical Bard [id number] | | N/A: | BARD | | 04/21/ | [id number] | | Hernia Soft Lightweight Low | | Abdome | | | 2023 | 6 / | | Profile Strong Knit | | n | | | | /[id number] | | Construction Monofilament - | | | | | | 141 | | [id number]: Qty: 1 on | | | | | | | | 09/22/2019 by Shu, | | | | | | | | MD Bryson at [facility] INPATIENT | | | | | | | | REV LOC | | | | | | [...] | | mi | al/Fam | | 1984 | [phone] | [place] [address] | | | pawel | | | 9 (Home) | | + +--------+ +--------+ + + | Miguelangel Caballero | Worker | Self | 08/15/ | | [address] | | mi | s Comp | | 1984 | [phone] | [place] [address] | | | | | | 9 (Home) | | + +--------+ +--------+ + + | Miguelangel Caballero | Worker | Self | 08/15/ | | [address] | | mi | s Comp | | 1984 | [phone] | [place] [address] | | | | | | 9 (Home) | | + +--------+ +--------+ + + | Miguelangel Caballero | Worker | Self | 08/15/ | | [address] | | mi | s Comp | | 1984 | [phone] | [place] [address] | | | | | | 9 (Home) | | + +--------+ +--------+ + + Advance Directives + + + + + | Code Status | Date | Date | Comments | | | Activated | Inactivated | | + + + + + | Full Code | 09/22/2019 | 09/25/2019 | | | | 5:23 PM | 7:09 PM | | + + + + + + + + +---+ | | | | | + + + +---+ | Full Code | 08/31/2018 | 09/02/2018 | | | | 10:38 AM | 11:19 PM | | + + + +---+
--- OUTSIDE RECORDS SUMMARY | ~2020-03-18 | XMS | Encounter Summary ---
Demographics + + + | Address | [address] | | | [place] [address] | + + + | Home Phone [...] [place] | | | | | [address] | | + + + + + Care Team Providers + +------+ + | Care Reservoir Engineering Manager Name | Role | Phone | [...] | 2020 | Encounter | Center at [facility] [address] | MD Bryson [address] | | | | | [address] | [address] | | | | | Mailcode: Center | [place], [place] | | | | | for Health and | [address] | | | | | Healing, Building 2 | [phone] | | | | | [place], [place] | | | | | | [address] | | | | | | [phone] | | | +--------+ + + + [...]
--- OUTSIDE RECORDS SUMMARY | ~2020-03-18 | XMS | Encounter Summary ---
Demographics + + + | Address | [address] | | | [place] [address] | + + + | Home Phone | | + + + | Preferred Language | Unknown | + + + | Marital Status | | + + + | Gnosticism Affiliation | CHR | + + + [...] [place] | | | | | [address] | | + + + + + Care Team Providers + +------+ + | Care Intelligence Group Supervisor Name | Role | Phone | [...] 2020 | Encounter | Center at [address] | MD Bryson [address] | needed | | | | [address] | [address] | | | | | Mailcode: Center | [place], [place] | | | | | for Health and | [address] | | | | | Healing, Building 2 | [phone] | | | | | [place], [place] | | | | | | [address] | | | | | | [phone] | | | +--------+ + + + [...]
--- OUTSIDE RECORDS SUMMARY | ~2020-03-18 | XMS | Encounter Summary ---
Demographics + + + | Address | [address] | | | [place] [address] | + + + | Home Phone [...] [place] | | | | | [address] | | + + + + + Care Team Providers + +------+ + | Care Bicycle Inspector Name | Role | Phone | [...] | | | hernia | | [address] | | | | | [...] | | | | | | | [place], [place] | | | | | | | [address] | | | | | | | Phone: | | | | | | | [phone] | | | | | | | Fax: | | | | | | | [phone] | +--------+--------+ + + + + Encounter [...] | | | [address] | [place], [place] | adult (HCC) (Primary | | | | Mailcode: Center | [address] | Dx); Borderline | | | | for Health and | [phone] | diabetes; Essential | | | | Healing, Building 2 | | hypertension; | | | | [place], [place] | | Ventral hernia with | | | | [address] | | obstruction and | | | | [phone] | | without gangrene | +--------+---------+ + [...] the resident s note. Es Bingham MD, [facility], FACS ES BINGHAM MD [facility] 6TH FLOOR [address] Mailcode: [facility] [place] [address] Nba Finn MD - 02/28/2018 2:25 PM PDT [facility] Department of Surgery [facility] Note [...] feels depressed since her was gone to [facility], improving since he returned home on 02/25, [...] Nba Amaya MD General Surgery, PGY-2 Pager [phone] documented in thi s encounter Plan of [...]
--- OUTSIDE RECORDS SUMMARY | ~2020-03-18 | XMS | Encounter Summary ---
Demographics + + + | Address | [address] | | | [place] [address] | + + + | Home Phone | | + + + | Preferred Language | Unknown | + + + | Marital Status | | + + + | Druze Affiliation | CHR | + + + [...] [place] | | | | | [address] | | + + + + + Care Team Providers + +------+ + | Care Associate Pastor Name | Role | Phone | + [...] Closed | | Surgery | Diagnoses | | Shu, | | | | | Ventral | Shu | MD Yann | | | | | hernia with | MD Yann | [address] | | | | | obstruction | [address] | [address] | | | | | and without | [address] | Rd [place], | | | | | gangrene | Rd | [place] | | | | | Procedures | [facility] [place] | [address] | | | | | REQUEST TO | [address] | Phone: | | | | | SURGERY | Phone: | [phone] | | | | | WRITING MANAGER | [phone] | Fax: | | | | | BETTY WEBSTER | Fax: | [phone] | | | | | ARIES BERNAL | [phone] | | | | | | [place] | | | +--------+--------+ + + + [...] 07/06/ | Office | [facility] | Shu, | Ventral hernia with | | 2019 | Visit | [place] [address] [address] | MD Yann [address] | obstruction and | | | | [address] | [address] | without gangrene | | | | Mailcode: Center | [place], [place] | (Primary Dx) | | | | for Health and | [address] | | | | | [facility] 2 | [phone] | | | | | [place], [place] | | | | | | [address] | | | | | | [phone] | | | +--------+---------+ + + + [...] 07/06/2019 9:50 AM [address] IN[address] [facility] General Surgery Office Toll-free: ext [phone] Surgery Date: Sunday, September 22, [address]: [facility] Procedure: recurrent ventral hernia repair, excision [...] ease call the General Surgery Office at [phone] for [id number]. Check-in on the day of surgery is at the Admitting Department located on the 9th floor of [facility]. DIET Nothing to eat or drink [...] the surgery. Please see the list below, [facility] has a list of products that contain [...] contact our office . Products Containing Aspirin Ca-Peotone, Anacin, Anexsia with Codeine, Andynos, Aspirin, Aspirin suppositories, Ascrip tin, Aspergum, Axotal, B-A-C, Baby Aspirin, Nader, BC Powder, Bexophene, Buffaprin, Bufferin , Buffinol, Cama-Arthritis Strength, Congespirin, [place], Coricidin, Damason, Darvon, Dristan, Rosetta-Gesic, Digel, Dolprin #3 Tablets, Donatab, Doxaphene, Duragesic, Easprin, Ecotrin, Emag rin Forte, Emiprin, Emprazil, Equagesic, Equazine M, Excedrin, Fiogesic, Fiorgen PH, Fiorice t, Fiorinal, 4-Way Cold Tablet, Gemnisyn, Indocin, Liquprin, Lortab ASA, Magnaprin, Marnal, Meprobamate, Midol, Momentum, Norgesic, [place], Orphengesic, Pabalate, P-A-C, Percodan, Pre salin, Robaxasil, Roxiprin, Saleto, Salocol, SK-65 Compound, Sine-Aid, Sine-Off, [place], Supac, Talwin Compound, Trigesic, Tolectin, Traiminicin, Vanquish, ZORprin, Zomax Products Containing Ibuprofen Advil, Aleve, Haltran, Medipren, Midol, Motrin, Naproxyn, Nuprin, Rufen Herbal Medications Ephedra: discontinue 24 hours before surgery Garlic: discontinue 7 days prior to surgery Ginkgo: discontinue 36 hours prior to surgery Ginseng: discontinue 7 days prior to surgery Kava: discontinue 24 hours prior to surgery [place] s Wort: discontinue 5 days prior to surgery Valerian: discontinue several weeks prior to surgery Other Products Which May Promote Bleeding Vitamin E, Gingko Biloba, Marine Fatty Acids, Central-3 Fish Oil Supplement PRE-OP BATHING/SHOWER INSTRUCTIONS with [facility] Bathe or shower the evening before and [...] actual loss of tissue. Check out the [facility] Quit Line - The Quit Line is open 24 hours a day, seven days a we ek. The Quit Line is a telephone and web-based counseling service to help [place]ians quit us ing tobacco and nicotine products. .QUIT.NOW ( ) or www.quitnow.net/[place] PARKING Parking at the Hospital for patients and visitors is available in the [facility] PeerSpace Albumatic tructure located across from the emergency department. Patient parking is available on level 1 and 3. Metered parking is available on the top level. Parking at [facility] is available in the building's parking structure. For additional parking options visit [email or web address]. TRANSPORTATION You will require transportation home on the day of discharge. Pain medications and physical activity restrictions may limit your ability to drive safely. CANCELLING YOUR PROCEDURE Please notify the general surgery office at [phone] as soon as possible should you nee [...] repair. Her prior surgeries were performed in [place], [place] with Dr. Arthur Kuo. She repor [...] a non-smoker. 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 Can walk greater than 10 blocks, very active with her work . Past Surgical History Procedure Laterality Date Diagnostic laparoscopy 2009 Fallopian tube transection 2012 Ventral hernia repair with mesh 2013 Laparoscopic sleeve gastrectomy 08/31/[address] [address] Downing Past Medical History: Diagnosis Date [...] to inguinal hernia repair. YANN IRELAND MD DIGESTIVE [facility] [address] Mailcode: [place] [address] documented in this encounter Plan of Treatment Not on filedocumented as of this encounter Visit Diagnoses + + | Diagnosis | + + | Ventral hernia with obstruction and without gangrene - Primary Ventral hernia, | | unspecified, with obstruction | + + documented in this encounter
--- OUTSIDE RECORDS SUMMARY | ~2020-03-18 | XMS | Encounter Summary ---
Demographics + + + | Address | [address] | | | [place] [address] | + + + | Home Phone [...] [place] | | | | | [address] | | + + + + + Care Team Providers + +------+ + | Care Felling Bucking Supervisor Name | Role | Phone | [...] | | 2018 | | Center at [facility] [address] | [address] | | | | | [address] | [place], [place] | | | | | Mailcode: Center | [address] | | | | | for Health and | [phone] | | | | | [facility], [address] | | | | | | [place], [place] | | | | | | [address] | | | | | | [phone] | | | +--------+ + + + [...]
--- OUTSIDE RECORDS SUMMARY | ~2020-03-18 | XMS | Encounter Summary ---
Demographics + + + | Address | [address] | | | [place] [address] | + + + | Home Phone | | + + + | Preferred Language | Unknown | + + + | Marital Status | | + + + | Baptism Affiliation | CHR | + + + [...] [place] | | | | | [address] | | + + + + + Care Team Providers + +------+ + | Care Back Joiner Name | Role | Phone | [...] | 2017 | Visit | Center at [facility] [address] | | body mass index of | | | | [address] | | 40.0-44.9 in adult | | | | Mailcode: Center | | ([facility]) (Primary Dx) | | | | for Health and | | | | | | [facility] | | | | | | [place], [place] | | | | | | [address] | | | | | | [phone] | | | +--------+---------+ + + + [...] of Class: 2:00/3:00 until 3:00/4:00 (60 minutes [id number] with patient) OBJECTIVE: Height: Ht Readings from [...] sharing information. Yes Carmen Dumont RD,LD Pager# [phone] Phone: [phone] documented in this en counter Plan of Treatment Not on filedocumented as of this encounter Visit Diagnoses + + | Diagnosis | + + | Morbid obesity with body mass index of 40.0-44.9 in adult (HCC) - Primary | + + documented in this encounter
--- OUTSIDE RECORDS SUMMARY | ~2020-03-18 | XMS | Encounter Summary ---
Demographics + + + | Address | [address] | | | [place] [address] | + + + | Home Phone [...] [place] | | | | | [address] | | + + + + + Care Team Providers + +------+ + | Care Director Of Psychiatry Name | Role | Phone | + [...] Medical Records | | 2018 | | [facility] [address] | | Review | | | | [address] | | | | | | Mailcode: [facility] | | | | | | for Health and | | | | | | [facility], [address] 2 | | | | | | [place], [place] | | | | | | [address] | | | | | | [phone] | | | +--------+ + + + [...]
--- OUTSIDE RECORDS SUMMARY | ~2020-03-18 | XMS | Encounter Summary ---
Demographics + + + | Address | [address] | | | [place] [address] | + + + | Home Phone | | + + + | Preferred Language | Unknown | + + + | Marital Status | | + + + | Tenriism Affiliation | CHR | + + + [...] [place] | | | | | [address] | | + + + + + Care Team Providers + +------+ + | Care Information Technology Audit Manager Name | Role | Phone | [...] Sulma Request | | 2019 | | [facility] at [facility] [address] | MD Bryson [address] | | | | | [address] | [address] | | | | | Mailcode: Center | [place], [place] | | | | | for Health and | [address] | | | | | [place] [address] | [phone] | | | | | [place], [place] | | | | | | [address] | | | | | | [phone] | | | +--------+ + + + [...]
--- OUTSIDE RECORDS SUMMARY | ~2020-03-18 | XMS | Encounter Summary ---
Demographics + + + | Address | [address] | | | [place] [address] | + + + | Home Phone [...] [place] | | | | | [address] | | + + + + + Care Team Providers + +------+ + | Care Supervisor Stone Name | Role | Phone | + [...] 2020 | Encounter | Center at [facility] [address] | MD Bryson [address] | | | | | [address] | [address] | | | | | Mailcode: Center | [place], [place] | | | | | for Health and | [address] | | | | | Healing, Building 2 | [phone] | | | | | [place], [place] | | | | | | [address] | | | | | | [phone] | | | +--------+ + + + [...]
--- OUTSIDE RECORDS SUMMARY | ~2020-03-18 | XMS | Encounter Summary ---
Demographics + + + | Address | [address] | | | [place] [address] | + + + | Home Phone [...] [place] | | | | | [address] | | + + + + + Care Team Providers + +------+ + | Care Dough Machine Operator Name | Role | Phone [...] | Pain | Diagnoses | Clarke, | Sawmill Relief Worker Psych | | | | Management | Morbid | Yumiko, ACNP | [facility] [address] | | | | | obesity with | [address] | | | | | BMI of | [address] | Mailcode: | | | | | 40.0-44.9, | [place], [place] | 15 Center | | | | | adult (HCC) | [address] | for Health | | | | | Borderline | Phone: | and Healing, | | | | | diabetes | [phone] | Building 1, | | | | | Essential | Fax: | 15th Floor | | | | | hypertension | [phone] | [place], [place] | | | | | Mild | | [address] | | | | | intermittent | | Phone: | | | | | asthma | | [phone] | | | | | without | | Fax: | | | | | complication | | [phone] | | | | | Anxiety | [...] 04/20/ | Office | Pain Center at [facility] | Dylan Abraham, | Morbid obesity with | | 2017 | Visit | [address] | PhD [address] | BMI of 40.0-44.9, | | | | Mailcode: [facility] | [place], [place] | adult ([facility]) (Primary | | | | Center for Health | [address] | Dx); Generalized | | | | and Healing, | [phone] | anxiety disorder; | | | | Building | | Borderline diabetes; | | | | Floor [facility] [place] | | Major depressive | | | | [address] | | disorder, recurrent, | | | | [phone] | | in partial | | | | | | remission ([facility]); | | | | | | Essential [...] Name: Sara Caballero : 1985 Medical Record: [id number] Age:32 y.o. Weight: 278 lbs BMI: 44 Identifying Information: Sara Caballero is a 32 y.o. female who lives with her emily band, and her cousin and the cousin's 4 children in [place], [place]. She was referred for psy chological [...] yle. 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 For enjoyment the patient does craft s, [...] to improve her consistency with following the mopper's recommendations, especially eating more consistently throughout the day. 4. She should continue her current walking and pool exercise routines. 5. She is urged to participate in a Bariatric Surgery Support Group. Total time I spent was approximately 50 minutes fxmx-xl-iorf with the patient and approxima tely 1 hour 50 minutes of wdc-wyhe-fk-face testing, interpreting and synthesizing results. Dylan Abraham, PhD PAIN CENTER AT [facility] 15TH FLOOR [address] [facility] Mail Code: [address] [address] documented in this en counter Plan of Treatment Not on filedocumented as of this encounter Visit Diagnoses + + | Diagnosis | + + | Morbid obesity with BMI of 40.0-44.9, adult ([facility]) - Primary | + + | Generalized anxiety disorder | + + | Borderline diabetes Other abnormal glucose | + + | Major depressive disorder, recurrent, in partial remission ([facility]) Major depressive | | disorder, recurrent episode, in partial or unspecified remission | + + | Essential hypertension | + + | Ventral hernia with obstruction and without gangrene Ventral hernia, unspecified, | | with obstruction | + + documented in this encounter"
--- OUTSIDE RECORDS SUMMARY | ~2020-03-18 | XMS | Encounter Summary ---
Demographics + + + | Address | [address] | | | [place] [address] | + + + | Home Phone [...] [place] | | | | | [address] | | + + + + + Care Team Providers + +------+ + | Care Pattern Duplicator Name | Role | Phone | + [...] and without | [address] | Rd [place], | | | | | gangrene | Rd | [place] | | | | | Procedures | [facility] [place] | [address] | | | | | REQUEST TO | [address] | Phone: | | | | | SURGERY | Phone: | [phone] | | | | | RAIL EQUIPMENT OPERATOR | [phone] | Fax: | | | | | BETTY WEBSTER | Fax: | [phone] | | | | | ARIES BERNAL | [phone] | | | | | | CO [...] with | | 2019 | Visit | [place] [address] | MD Yann [address] | obstruction and | | | | [address] | [address] | without gangrene | | | | Mailcode: Center | [place], [place] | (Primary Dx) | | | | for Health and | [address] | | | | | [facility] 2 | [phone] | | | | | [place], [place] | | | | | | [address] | | | | | | [phone] | | | +--------+---------+ + + + [...] - 07/06/2019 9:50 AM PDTPATIENT SURGERY INFORMATION [facility] General Surgery Office Toll-free: ext [phone] Surgery Date: Sunday, September 22, [address]: [facility] Procedure: recurrent ventral hernia repair, excision of [...] ease call the General Surgery Office at [phone] for [id number]. Check-in on the day of surgery is at the Admitting Department located on the 9th floor of [facility]. DIET Nothing to eat or drink [...] Please see the list below, [facility] has a list of products that [...] contact our office . Products Containing Aspirin Ca-[place], Anacin, Anexsia with Codeine, Andynos, Aspirin, Aspirin suppositories, Ascrip tin, Aspergum, Axotal, B-A-C, Baby Aspirin, Nader, BC Powder, Bexophene, Buffaprin, Bufferin , Buffinol, Cama-Arthritis Strength, Congespirin, Hunter, Coricidin, Damason, Darvon, Dristan, Rosetta-Gesic, Digel, Dolprin #3 Tablets, Donatab, Doxaphene, Duragesic, Easprin, Ecotrin, Emag rin Forte, Emiprin, Emprazil, Equagesic, Equazine M, Excedrin, Fiogesic, Fiorgen PH, Fiorice t, Fiorinal, 4-Way Cold Tablet, Gemnisyn, Indocin, Liquprin, Lortab ASA, Magnaprin, Marnal, Meprobamate, Midol, Momentum, Norgesic, [place], Orphengesic, Pabalate, P-A-C, Percodan, Pre salin, Robaxasil, Roxiprin, Saleto, Salocol, SK-65 Compound, Sine-Aid, Sine-Off, [place], Supac, Talwin Compound, Trigesic, Tolectin, Traiminicin, Vanquish, ZORprin, Zomax Products Containing Ibuprofen Advil, Aleve, Haltran, Medipren, Midol, Motrin, Naproxyn, Nuprin, Rufen Herbal Medications Ephedra: discontinue 24 hours before surgery Garlic: discontinue 7 days prior to surgery Ginkgo: discontinue 36 hours prior to surgery Ginseng: discontinue 7 days prior to surgery Kava: discontinue 24 hours prior to surgery [place] s Wort: discontinue 5 days prior to surgery Valerian: discontinue several weeks prior to surgery Other Products Which May Promote Bleeding Vitamin E, Gingko Biloba, Marine Fatty Acids, [place]-3 Fish Oil Supplement PRE-OP BATHING/SHOWER INSTRUCTIONS with [facility] Bathe or shower the evening before and [...] actual loss of tissue. Check out the [facility] Quit Line - The Quit Line is open 24 hours a day, seven days a we ek. The Quit Line is a telephone and web-based counseling service to help [place]ians quit us ing tobacco and nicotine products. .QUIT.NOW ( ) or www.quitnow.net/[place] PARKING Parking at the Hospital for patients and visitors is available in the [facility] [employer] tructure located across from the emergency department. Patient parking is available on level 1 and 3. Metered parking is available on the top level. Parking at [facility] is available in the building's parking structure. For additional parking options visit [email or web address]. TRANSPORTATION You will require transportation home on the day of discharge. Pain medications and physical activity restrictions may limit your ability to drive safely. CANCELLING YOUR PROCEDURE Please notify the general surgery office at [phone] as soon as possible should you nee [...] repair. Her prior surgeries were performed in [place], [place] with Dr. Arthur Kuo. She repor [...] a non-smoker. 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 Can walk greater than 10 blocks, very active with her work . Past Surgical History Procedure Laterality Date Diagnostic laparoscopy 2009 Fallopian tube transection 2012 Ventral hernia repair with mesh 2013 Laparoscopic sleeve gastrectomy 08/31/[address] Downing Past Medical History: Diagnosis Date [...] file Gets together: Not on file Attends hindu service: Not on file Active member of [...] inguinal hernia repair. YANN IRELAND MD [facility] [address] Mailcode: [place] [address] documented in this encounter Plan of Treatment Not on filedocumented as of this encounter Visit Diagnoses + + | Diagnosis | + + | Ventral hernia with obstruction and without gangrene - Primary Ventral hernia, | | unspecified, with obstruction | + + documented in this encounter
--- OUTSIDE RECORDS SUMMARY | ~2020-03-18 | XMS | Encounter Summary ---
Demographics + + + | Address | [address] | | | [place] [address] | + + + | Home Phone [...] [place] | | | | | [address] | | + + + + + Care Team Providers + +------+ + | Care Patrol Judge Name | Role | Phone | + +------+ + | No Pcp Per Patient | PCP | Unavailable | + +------+ + Encounter Details +--------+ + + + + | Date | Type | Department | Care Team | Description | +--------+ + + + + | 10/22/ | Abstract | Digestive Health | Clinic, Surgery | | | 2016 | | [place] at [facility] [address] | | | | | | [address] | | | | | | Mailcode: [place] | | | | | | [facility] and | | | | | | Healing, Building [address] | | | | | | [place], [place] | | | | | | [address] | | | | | | [phone] | | | +--------+ + + + [...]
--- OUTSIDE RECORDS SUMMARY | ~2020-03-18 | XMS | Encounter Summary ---
Demographics + + + | Address | [address] | | | [place] [address] | + + + | Home Phone [...] [place] | | | | | [address] | | + + + + + Care Team Providers + +------+ + | Care Cutter In Name | Role | Phone | + [...] | | | [address] | [place], [place] | | | | | Mailcode: [place] | [address] | | | | | for Health and | [phone] | | | | | [facility], [place] [address] | | | | | | [facility] [place] | | | | | | [address] | | | | | | [phone] | | | +--------+ + + + [...]
--- OUTSIDE RECORDS SUMMARY | ~2020-03-18 | XMS | Encounter Summary ---
Demographics + + + | Address | [address] | | | [place] [address] | + + + | Home Phone [...] [place] | | | | | [address] | | + + + + + Care Team Providers + +------+ + | Care Test Boring Crew Chief Name | Role | Phone | [...] | 2020 | Encounter | Center at [facility] [address] | MD Bryson [address] | | | | | [address] | [address] | | | | | Mailcode: Center | [place], [place] | | | | | for Health and | [address] | | | | | Healing, Building 2 | [phone] | | | | | [place], [place] | | | | | | [address] | | | | | | [phone] | | | +--------+ + + + [...]
--- OUTSIDE RECORDS SUMMARY | ~2020-03-18 | XMS | Encounter Summary ---
Demographics + + + | Address | [address] | | | [place] [address] | + + + | Home Phone [...] [place] | | | | | [address] | | + + + + + Care Team Providers + +------+ + | Care Enforcement Manager Name | Role | Phone | + +------+ + | Aleshia Martinez PA-C | PCP | | + +------+ + Encounter Details +--------+ + + + + | Date | Type | Department | Care Team | Description | +--------+ + + + + | 07/12/ | Abstract | Digestive Health | Clinic, Surgery | | | 2017 | | [place] at [facility] [address] | | | | | | [address] | | | | | | Mailcode: [place] | | | | | | for Health and | | | | | | Healing, Building [address] | | | | | | [place], [place] | | | | | | [address] | | | | | | [phone] | | | +--------+ + + + [...]
--- OUTSIDE RECORDS SUMMARY | ~2020-03-18 | XMS | Encounter Summary ---
Demographics + + + | Address | [address] | | | [place] [address] | + + + | Home Phone [...] [place] | | | | | [address] | | + + + + + Care Team Providers + +------+ + | Care Environmental Communications Specialist Name | Role | Phone | [...] 2018 | Visit | Center at [facility] [address] | MD [address] | surgery (Primary | | | | [address] | [facility] [place] | Dx); S/P | | | | Mailcode: Center | [address] | laparoscopic sleeve | | | | for Health and | [phone] | gastrectomy | | | | Healing, Building 2 | | | | | | [place], [place] | | | | | | [address] | | | | | | [phone] | | | +--------+---------+ + + + [...] can be adjusted. Please visit with our Climate Change Risk Assessor (RD) for instructions about your Bariatric diet, assistance with calorie counts, tips and tricks for working with your diet restrictions, an d recipes after bariatric surgery. Daily yogurt; even just 1 tablespoon twice a day will provide enough probiotics to optimize digestion. Try to use a high-quality, probiotic-dense yogurt (eg Marielena's, [place], Lif eway Kefir, Brush Polisher Dom's Syrian Yogurt). Remember to chew your food well, [...] GILDARDO DOWNING MD. Division of Bariatric Surgery [facility] | [address] | [place], [place] | [address] | documented in this en counter Plan of Treatment Not on filedocumented as of this encounter Visit Diagnoses + + | Diagnosis | + + | Aftercare following surgery - Primary Encounter for other specified aftercare | + + | S/P laparoscopic sleeve gastrectomy | + + documented in this encounter
--- OUTSIDE RECORDS SUMMARY | ~2020-03-18 | XMS | Encounter Summary ---
Demographics + + + | Address | [address] | | | [place] [address] | + + + | Home Phone [...] [place] | | | | | [address] | | + + + + + Care Team Providers + +------+ + | Care Manager Brand Name | Role | Phone | + [...] | 2017 | Visit | Center at [facility] [address] | | BMI of 40.0-44.9, | | | | [address] | | adult (HCC) (Primary | | | | Mailcode: Center | | Dx) | | | | for Health and | | | | | | [facility], Building 2 | | | | | | [place], [place] | | | | | | [address] | | | | | | [phone] | | | +--------+---------+ + + + [...] of Class: 2:00/3:00 until 3:00/4:00 (60 minutes ibgb-wn-olkl with patient) OBJECTIVE: Height: Ht Readings from [...] or sharing information. Yes Chetna Alves RD, [facility] Bariatrics [phone] documented in this enco unter Plan of Treatment Not on filedocumented as of this encounter Visit Diagnoses + + | Diagnosis | + + | Morbid obesity with BMI of 40.0-44.9, adult (HCC) - Primary | + + documented in this encounter
--- OUTSIDE RECORDS SUMMARY | ~2020-03-18 | XMS | Encounter Summary ---
Demographics + + + | Address | [address] | | | [place] [address] | + + + | Home Phone [...] [place] | | | | | [address] | | + + + + + Care Team Providers + +------+ + | Care Line Repairer Name | Role | Phone | [...] | | | | | | | [place], [place] | | | | | | | [address] | | | | | | | Phone: | | | | | | | [phone] | | | | | | | Fax: | | | | | | | [phone] | + +--------+ + + + + Encounter Details +--------+---------+ + + + | Date | Type | Department | Care Team | Description | +--------+---------+ + + + | 01/06/ | Office | Digestive Health | Chetna Alves, JOEL | Morbid obesity with | | 2017 | Visit | Center at [facility] [address] | [address] | BMI of 40.0-44.9, | | | | [facility] | [address] [place], | adult (HCC) (Primary | | | | for Health and | [place] [address] | Dx); Ventral hernia | | | | Healing, Building 2 | | with obstruction | | | | [place], [place] | | and without | | | | [address] | | gangrene; Borderline | | | | [phone] | | diabetes | +--------+---------+ + + [...] of Visit: 3:10 until 4:00 (50 minutes rfdk-gu-gksz with patient) SUBJECTIVE: Pt comes in alone from [facility]. Patient viewed online seminar prior to visit. [...] or dr ink water. Has been doing Kadoink. Says she is alone a lot. 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 4. Call or send Speech Kingdomt message to dietitian with any questions. Contact information was provided. Follow up with dietitian 1-2 weeks after surgery at first post-op visit. Chetna Alves RD, CNSC, LD [facility] Bariatrics [phone] documented in this enco unter Plan of Treatment Not on filedocumented as of this encounter Procedures + +--------+ + + + | Procedure Name | Priori | Date/Time | Associated Diagnosis | Comments | | | ty | | | | + +--------+ + + + | [place] MNT INITIAL | Routin | 01/07/2018 | Ventral hernia | | | ASSESSMNT X15MIN | e | 7:51 AM | with obstruction and | | | | | PDT | without gangrene | | | | | | Morbid obesity with | | | | | | BMI of 40.0-44.9, | | | | | | adult ([facility]) | | | | | | Borderline diabetes | | + +--------+ + + + documented in this encounter Visit Diagnoses + + | Diagnosis | + + | Morbid obesity with BMI of 40.0-44.9, adult ([facility]) - Primary | + + | 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
--- OUTSIDE RECORDS SUMMARY | ~2020-03-18 | XMS | Encounter Summary ---
Demographics + + + | Address | [address] | | | [place] [address] | + + + | Home Phone [...] [place] | | | | | [address] | | + + + + + Care Team Providers + +------+ + | Care Teacher Music Name | Role | Phone | + [...] 2018 | on | Center at [facility] [address] | ACNP [address] | | | | | [address] | Ave [place], [place] | | | | | Mailcode: Center | [address] | | | | | for Health and | [phone] | | | | | Healing, Building [address] | | | | | | [place], [place] | | | | | | [address] | | | | | | [phone] | | | +--------+ + + + [...]
--- OUTSIDE RECORDS SUMMARY | ~2020-03-18 | XMS | Encounter Summary ---
Demographics + + + | Address | [address] | | | [place] [address] | + + + | Home Phone [...] [place] | | | | | [address] | | + + + + + Care Team Providers + +------+ + | Care Intel Recruiter Name | Role | Phone | + [...] evaluation | | 2018 | cheduled | [facility] at | | | | | | MPV | | | | | | Stay [address] | | | | | | [address] | | | | | | Mailcode: [facility] | | | | | | [address] | | | | | | [address] [place], [place] | | | | | | [address] | | | | | | [phone] | | | +--------+ + + + [...] perfume, lotions or powder. Remove any nail yoruba from at least one fingernail. Do not [...] your procedure. Surgery Check in Locations Admitting [facility] Surgery Check in Time: Someone from your surgeon's office or [facility] will provide you with information regarding your [...] it is after office hours, call the [facility] head up operator helper at [phone] and ask them to page your doc tor. documented in this encounter Plan of Treatment Not on filedocumented as of this encounter Visit Diagnoses Not on filedocumented in this encounter"
--- OUTSIDE RECORDS SUMMARY | ~2020-03-18 | XMS | Encounter Summary ---
Demographics + + + | Address | [address] | | | [place] [address] | + + + | Home Phone [...] [place] | | | | | [address] | | + + + + + Care Team Providers + +------+ + | Care Specialist Icu Name | Role | Phone | + [...] + | 08/31/ | Hospital | [facility] [address] | Gildardo Downing, | | | 2018 - | Encounter | [address] | [address] | | | | | [place], [place] | [facility] [place] | | | 09/02/ | | [address] | [address] | | | 2017 | | [phone] | [phone] | | | | | | | [...] differen t from the original. [facility] [place] RED SURGERY INPATIENT DISCHARGE SUMMARY Author: GAUTAM [...] We will have her follow up with [facility] Bariatric Nurse Practitioner in 1 week and [...] are available over the counter at most [facility] [employer] stores. Nausea/Vomiting/Difficulty Swallowing Nausea/Vomiting/Difficulty swallowing: Could be [...] hours per your instructions. Some medications, like [place], have Tylenol in it. Make sure you [...] as this clinic does not provide [facility] chronic pain management services. When [...] hours by calling the surgery office at [phone]. - After hours, weekends and holidays, you may call the hospital tip banding machine operator at [phone] an d have the correctional officer lieutenant Red Surgery Team paged. Destination Home Condition [...] Acute Care Why: follow up with bariatric CLAIM INSPECTOR Contact information [address] [address] Future Appointments Provider Department Dept Phone Center 09/07/2018 10:00 AM Chetna Alves [facility] at [facility] 6th Floor [phone] KATIA D AND NUT 09/07/2018 10:50 AM Emily Martinez [facility] at [facility] 6th Floor [phone] D ig Health 09/29/2018 10:30 AM Tea [facility] at [facility] 6th Floor [phone] F OOD AND NUT 09/29/2018 11:20 AM Gildardo Downing [facility]ive [facility] at [facility] 6th Floor [phone] Di g Health 11/25/2018 10:00 AM [facility] at [facility] 6th Floor [phone] FO OD AND NUT 11/25/2018 10:50 AM Shanon Etienne [facility] at [facility] 6th Floor [phone] Dig [facility] Discharging Physician: GAUTAM Leblanc Attending Physician: Gildardo Downing MD [facility] Red Surgery Pager# [phone] 10:42 AM 09/02/2018 documented in th is [...] if this helps. Gildardo Downing MD, FACS, [facility] Division of Bariatric Surgery [facility] | [address] | [place], [place] | [address] | Ludwin Tellez MD - 08/31/2018 8:54 [...] and well perfused, SCDs in place A-P: Sraa Caballero is a 33 y.o. female s/p laparoscopic sleeve gastrectomy with EG D and omentopexy of the gastric staple line. Recovering appropriately. #Anti-emetics #Continue routine post-operative care #Continue current pain regimen Ludwin Tellez MD General Surgery, PGY1 Pager: [phone] documented in this en counter Plan of [...] ve | 12:25 PM | ([facility]) | | | | Surgic [...] results section. | | | | | ([facility]) | | + +--------+ + + [...] + + | [facility] OF | [address] | [place], [place] | | | CARDIOLOGY | [address] | [address] | | + + + + + [...] ABDI | [address] | [place], [place] | | | [facility] | [address] | [address] | | | TESTS | | | [...] MAR[place] | [address] | [place], [place] | | | [facility] OF CARE | [address] | [address] | | | TESTS | | | [...] SURGEON: Gildardo Downing MD. | | | GRAPHIC ILLUSTRATOR: Jamie Gonzales MD R6. ANESTHESIA: Ke Strong [...] | | | Gildardo Downing MD, FACS, [facility] Bariatric Surgery | | | | [...] SURGEON: Gildardo Downing MD. | | | GRAPHIC ILLUSTRATOR: Jamie Gonzales MD R6. ANESTHESIA: Ke Strong [...] | | | Gildardo Downing MD, FACS, [facility] Bariatric Surgery | | | | [...] [place] | [address] | [place], [place] | | | [facility]INT OF CARE | [address] | [address] | | | TESTS | | | [...] | | | | | 2045, Until [facility] 09/01/18 at 0611, | | | | [...] | | | | | dose on [facility] 09/01/18 at 0900 | | | | | | + +-------+ +--------+---+---+ +---+---+ | | | +---+---+ documented in this encounter
--- OUTSIDE RECORDS SUMMARY | ~2020-03-18 | XMS | Encounter Summary ---
Demographics + + + | Address | [address] | | | [place] [address] | + + + | Home Phone [...] [place] | | | | | [address] | | + + + + + Care Team Providers + +------+ + | Care Project Development Manager Name | Role | Phone | + +------+ + | Aleshia Martinez PA-C | PCP | | + +------+ + Encounter Details +--------+ + + + + | Date | Type | Department | Care Team | Description | +--------+ + + + + | 01/28/ | Abstract | Digestive Health | Clinic, Surgery | | | 2017 | | [place] at [facility] [address] | | | | | | [address] | | | | | | Mailcode: [place] | | | | | | for Health and | | | | | | Healing, [address] | | | | | | [place], [place] | | | | | | [address] | | | | | | [phone] | | | +--------+ + + + [...]
--- OUTSIDE RECORDS SUMMARY | ~2020-03-18 | XMS | Encounter Summary ---
Demographics + + + | Address | [address] | | | [place] [address] | + + + | Home Phone [...] [place] | | | | | [address] | | + + + + + Care Team Providers + +------+ + | Care Wedding Designer Name | Role | Phone | [...] Pharmacy | | | | | | [address] | | | | | | [place] | | | | | | [address] | | | | | | [phone] | | | +--------+ + + + [...]
--- OUTSIDE RECORDS SUMMARY | ~2020-03-18 | XMS | Encounter Summary ---
Demographics + + + | Address | [address] | | | [place] [address] | + + + | Home Phone [...] [place] | | | | | [address] | | + + + + + Care Team Providers + +------+ + | Care Editor Name | Role | Phone | + [...] | Bariatri Surg | | | with SCREEN PRINTING SUPERVISOR | | obesity | Ganesh Holden MD | [facility] [address] | | | | | (HCC) | [address] | | | | | Procedures | Alonos Regan | Mailcode: | | | | | CONSULT TO | Jessica Sepulveda | [place] for | | | | | BARIATRIC | [place], [place] | Health and | | | | | SURGERY | [address] | Healing, | | | | | | | Building 2 | | | | | | | [place], [place] | | | | | | | [address] | | | | | | | Phone: | | | | | | | [phone] | | | | | | | Fax: | | | | | | | [phone] | + + + + + + + Encounter Details +--------+---------+ + + + | Date | Type | Department | Care Team | Description | +--------+---------+ + + + | 06/16/ | Office | Digestive Health | Gildardo Downing, | Morbid obesity with | | 2017 | Visit | Center at [facility] 3485 | MD [address] | BMI of 40.0-44.9, | | | | [address] | [place], [place] | adult (HCC) (Primary | | | | Mailcode: Center | [address] | Dx); Essential | | | | for Health and | [phone] | hypertension; | | | | Healing, Building 2 | | Ventral hernia with | | | | [place], [place] | | obstruction and | | | | [address] | | without gangrene | | | | [phone] | | | +--------+---------+ + + + [...] 06/16/2018 9:20 AM PDTPlease visit with our [facility] Managed Care Director (RD) for instructions about your Bariatric diet, assistance with calorie c ounts, tips and tricks for working with your diet restrictions, and recipes after bariatric surgery. Daily yogurt; even just 1 tablespoon twice a day will provide enough probiotics to optimize digestion. Try to use a high-quality, probiotic-dense yogurt (eg Marielena's, Marcello, Enrico alberto Kefir, Certified Hearing Instrument Dispenser Dom's Afghan Yogurt). Remember to chew your food well, [...] to the healing stomach. There are also mcc complications of poor wound healing and gastric [...] a 4-5% rate of reoperation over the mcc (i.e. years), as well as other late [...] and may approach 5%. We reviewed the [facility] consent form. We discussed that we [...]
--- OUTSIDE RECORDS SUMMARY | ~2020-03-18 | XMS | Encounter Summary ---
Demographics + + + | Address | [address] | | | [place] [address] | + + + | Home Phone [...] [place] | | | | | [address] | | + + + + + Care Team Providers + +------+ + | Care Cell Room Operator Name | Role | Phone | [...] [address] | | | | | | [place] | | | | | | [address] | | | | | | [phone] | | | +--------+ + + + [...] | + + + + + | [facility] | [address] | [place] [address] | | | SERVICES, CORE | SHAHLA [...] [facility] | [address] | [place] [address] | | | SERVICES, CORE | PARK [...] CANDY WYATT | [address] | [place] [address] | | | SERVICES, CORE | SHAHLA MALDONADO | | | + + + + + documented in this encounter Visit Diagnoses Not on filedocumented in this encounter"
--- OUTSIDE RECORDS SUMMARY | ~2020-03-18 | XMS | Encounter Summary ---
Demographics + + + | Address | [address] | | | [place] [address] | + + + | Home Phone [...] [place] | | | | | [address] | | + + + + + Care Team Providers + +------+ + | Care Flight Attendant/Inflight Manager Name | Role | Phone | [...] 2019 | Encounter | Center at [facility] [address] | MD [address] | up | | | | [address] | [facility] [address] | | | | | Mailcode: Center | [place], [place] | | | | | for Health and | [address] | | | | | Healing, Building 2 | [phone] | | | | | [place], [place] | | | | | | [address] | | | | | | [phone] | | | +--------+ + + + [...]
--- OUTSIDE RECORDS SUMMARY | ~2020-03-18 | XMS | Encounter Summary ---
Demographics + + + | Address | [address] | | | [place] [address] | + + + | Home Phone [...] [place] | | | | | [address] | | + + + + + Care Team Providers + +------+ + | Care Creative Services Director Name | Role | Phone | [...] | 2018 | on | Center at [facility] [address] | | | | | | [address] | | | | | | Mailcode: Center | | | | | | for Health and | | | | | | Healing, Building 2 | | | | | | [place], [place] | | | | | | [address] | | | | | | [phone] | | | +--------+ + + + [...]
--- OUTSIDE RECORDS SUMMARY | ~2020-03-18 | XMS | Encounter Summary ---
Demographics + + + | Address | [address] | | | [place] [address] | + + + | Home Phone [...] [place] | | | | | [address] | | + + + + + Care Team Providers + +------+ + | Care Senior Construction Manager Name | Role | Phone | [...] 2018 | Encounter | Center at [facility] [address] | ACNP [address] | vitamin ok? | | | | [address] | Ave [place], [place] | | | | | Mailcode: Center | [address] | | | | | for Health and | [phone] | | | | | Healing, Building 2 | | | | | | [place], [place] | | | | | | [address] | | | | | | [phone] | | | +--------+ + + + [...]
--- OUTSIDE RECORDS SUMMARY | ~2020-03-18 | XMS | Encounter Summary ---
Demographics + + + | Address | [address] | | | [place] [address] | + + + | Home Phone [...] [place] | | | | | [address] | | + + + + + Care Team Providers + +------+ + | Care Music Writer Name | Role | Phone | [...] Pharmacy | | | | | | [address] | | | | | | [place], [place] | | | | | | [address] | | | | | | [phone] | | | +--------+ + + + [...]
--- OUTSIDE RECORDS SUMMARY | ~2020-03-18 | XMS | Encounter Summary ---
Demographics + + + | Address | [address] | | | [place] [address] | + + + | Home Phone [...] [place] | | | | | [address] | | + + + + + Care Team Providers + +------+ + | Care Rubber Moulding Machine Operator Name | Role | Phone [...] | [address] | [address] [place], | (Primary Dx); | | | | Mailcode: Center | [place] [address] | Vitamin D | | | | for Health and | [phone] | deficiency; | | | | Healing, Building 2 | | Gastroesophageal | | | | [place], [place] | | reflux disease, | | | | [address] | | esophagitis presence | | | | [phone] | | not specified; | | | [...] before eating anything. If your systems continue, Daily Aisle, call us, and we can consider adding [...] of fallopian tube Laparoscopic sleeve gastrectomy 08/31/2018 WVDANIA Downing Social History Social History Marital status: [...] to plan and will call and/or send BallLogic message if any issues. Start time 1050, end time 1120. I spent a total of 30 minutes face to face with this patie nt. Over 50% of visit was in counseling. Shanon Etienne, MSN, AG-ACNP, POTATO SORTER Bariatric Surgery Nurse Practitioner [facility] | [address] | [place], [place] | [address] | documented in this enco unter Plan [...]
--- OUTSIDE RECORDS SUMMARY | ~2020-03-18 | XMS | Encounter Summary ---
Demographics + + + | Address | [address] | | | [place] [address] | + + + | Home Phone [...] [place] | | | | | [address] | | + + + + + Care Team Providers + +------+ + | Care Anger Control Counselor Name | Role | Phone | + [...] Pharmacy | | | | | | [address] | | | | | | [place] | | | | | | [address] | | | | | | [phone] | | | +--------+ + + + [...]
--- OUTSIDE RECORDS SUMMARY | ~2020-03-18 | XMS | Encounter Summary ---
Demographics + + + | Address | [address] | | | [place] [address] | + + + | Home Phone [...] [place] | | | | | [address] | | + + + + + Care Team Providers + +------+ + | Care Basin Cleaner Name | Role | Phone | [...] | 2018 | Encounter | Center at [facility] 3485 | MD [address] | | | | | [address] | [facility] [place] [place] | | | | | Mailcode: Center | [address] | | | | | for Health and | | | | | | [facility] 2 | | | | | | [place], [place] | | | | | | [address] | | | | | | | [...]
--- OUTSIDE RECORDS SUMMARY | ~2020-03-18 | XMS | Encounter Summary ---
Demographics + + + | Address | [address] | | | [place] [address] | + + + | Home Phone [...] [place] | | | | | [address] | | + + + + + Care Team Providers + +------+ + | Care Solid Waste Collection Worker Name | Role | Phone | [...] Pharmacy | | | | | | [address] | | | | | | Loop [place], [place] | | | | | | [address] | | | | | | [phone] | | | +--------+ + + + [...]
--- OUTSIDE RECORDS SUMMARY | ~2020-03-18 | XMS | Encounter Summary ---
Demographics + + + | Address | [address] | | | [place] [address] | + + + | Home Phone [...] [place] | | | | | [address] | | + + + + + Care Team Providers + +------+ + | Care Clinical Research Scientist Name | Role | Phone | + +------+ + | Aleshia Martinez PA-C | PCP | | + +------+ + Encounter Details +--------+ + + + + | Date | Type | Department | Care Team | Description | +--------+ + + + + | 10/14/ | MyChart | Digestive Health | Joseph Ireland | | 2019 | Encounter | Center at [facility] 4495 | [address] | | | | | [address] | [facility] | | | | | Mailcode: Center | [place], [place] | | | | | [facility] and | [address] | | | | | [facility], [facility] 2 | [phone] | | | | | [place], [place] | | | | | | [address] | | | | | | [phone] | | | +--------+ + + + [...]
--- OUTSIDE RECORDS SUMMARY | ~2020-03-18 | XMS | Encounter Summary ---
Demographics + + + | Address | [address] | | | [place] [address] | + + + | Home Phone [...] [place] | | | | | [address] | | + + + + + Care Team Providers + +------+ + | Care Delivery Motorcycle Driver Name | Role | Phone | + +------+ + | Aleshia Martinez PA-C | PCP | | + +------+ + Encounter Details +--------+--------+ + + + | Date | Type | Department | Care Team | Description | +--------+--------+ + + + | 10/05/ | Travel | | | | | [...]
--- OUTSIDE RECORDS SUMMARY | ~2020-03-18 | XMS | Encounter Summary ---
Demographics + + + | Address | [address] | | | [place] [address] | + + + | Home Phone [...] 6TH | | | | | [place] | | | | | [address] | | + + + + + Care Team Providers + +------+ + | Care Snap Attacher Name | Role | Phone | + [...]
--- OUTSIDE RECORDS SUMMARY | ~2020-03-18 | XMS | Encounter Summary ---
Demographics + + + | Address | [address] | | | [place] [address] | + + + | Home Phone [...] [place] | | | | | [address] | | + + + + + Care Team Providers + +------+ + | Care Storyboard Artist Name | Role | Phone | + [...] 2019 | | Center at [facility] 3485 | MD [address] | | | | | [address] | [place], [place] | | | | | Mailcode: [place] | [address] | | | | | for Health and | | | | | | [facility] 2 | | | | | | [place], [place] | | | | | | [address] | | | | | | | [...]
--- OUTSIDE RECORDS SUMMARY | ~2020-03-18 | XMS | Encounter Summary ---
Demographics + + + | Address | [address] | | | [place] [address] | + + + | Home Phone [...] [place] | | | | | [address] | | + + + + + Care Team Providers + +------+ + | Care Wood Stock Blank Handler Name | Role | Phone | [...] | Ave | | | | | ([facility]) | [address] | Mailcode: | | | | | Procedures | Monica | [address] | | | | | PHYSICAL | [place] | for Health | | | | | THERAPY | [address] | and Healing, | | | | | REFERRAL | Phone: | Building 1, | | | | | | | 1St Floor | | | | | | Fax: | [place], [place] | | | | | | [phone] | [address] | | | | | | | Phone: | | | | | | | [phone] | | | | | | | Fax: | | | | | | | [phone] | +--------+--------+ + + + + Encounter Details +--------+---------+ + + + | Date | Type | Department | Care Team | Description | +--------+---------+ + + + | 01/06/ | Office | [facility] | Nesha Hannon, PT | Morbid obesity with | | 2018 | Visit | Therapy Services at | [address] [facility] | BMI of 40.0-44.9, | | | | [facility] | [address] [place], | adult (HCC) (Primary | | | | [address] | [place] [address] | Dx); Essential | | | | Mailcode: CH3P | [phone] | hypertension; | | | | [facility] | | Ventral hernia with | | | | and Healing, | | obstruction and | | | | Building [address] | | without gangrene; | | | | Floor [place], [place] | | Physical | | | | [address] | | deconditioning | | | | [phone] | | | +--------+---------+ + + + [...] Product Type: Workers Com p / Non-Medicare [facility] EVALU[facility] Past Medical History: [...] pain is not a significant clinical problem [facility] History of Presenting [...] to work due to pain/injury. lives with [facility]. Living situation/environment is limiting function: no Equipment [...] Moderate - Moderate complexity Complexity: Moderate - [address] The patient requires services that can be [...] status. NESHA HANNON PT RE[facility]ITATION SERVICES AT [facility] 1ST FLOOR Scheduled Appointment time: 1:00 [...] 1 Referral information Authorizing Provider: MARY ADAMS [[id number]] Onset/Referral Date: 10/27/17 Primary/Referral Diagnosis: E66.01, Z68.41 Morbid obesity with BMI of 40.0-44.9, adult (H CC) I10 Essential hypertension K43.6 Ventral hernia with obstruction and without gangrene R53.81 Physical deconditioning Start of care: 01/06/2018 Service period from: 01/06/2018 to: - Next progress report 02/05/2018 Insurance: Payor: WORKERS COMP OTHER / Plan: WORKERS COMP OTHER / Product Type: Copiun p / G-code:- code not needed. Number [...] | + +--------+ + + + | CA THERAPEUTIC | Routin | 01/10/2018 | Morbid [...]
--- OUTSIDE RECORDS SUMMARY | ~2020-03-18 | XMS | Encounter Summary ---
Demographics + + + | Address | [address] | | | [place] [address] | + + + | Home Phone [...] [place] | | | | | [address] | | + + + + + Care Team Providers + +------+ + | Care Heavy Equipment Rental Associate Name | Role | Phone | [...] | | 2016 | anned | Services [address] | | | | | | [address] | | | | | | Mailcode: OP17A | | | | | | [facility] | | | | | | [place], [place] | | | | | | [address] | | | | | | [phone] | | | +--------+ + + + [...]
--- OUTSIDE RECORDS SUMMARY | ~2020-03-18 | XMS | Encounter Summary ---
Demographics + + + | Address | [address] | | | [place] [address] | + + + | Home Phone [...] [place] | | | | | [address] | | + + + + + Care Team Providers + +------+ + | Care Oil And Gas Specialist Name | Role | Phone | [...] | 2017 | Encounter | Center at [facility] [address] | | denial | | | | [address] | | | | | | Mailcode: Center | | | | | | for Health and | | | | | | Healing, Building 2 | | | | | | [place], [place] | | | | | | [address] | | | | | | [phone] | | | +--------+ + + + [...]
--- OUTSIDE RECORDS SUMMARY | ~2020-03-18 | XMS | Encounter Summary ---
Demographics + + + | Address | [address] | | | [place] [address] | + + + | Home Phone [...] [place] | | | | | [address] | | + + + + + Care Team Providers + +------+ + | Care Log Getter Name | Role | Phone | + [...] | | [address] | Ave [facility] [place] | encounter) | | | | Mailcode: Center | [address] | | | | | for Health and | [phone] | | | | | [facility], [facility] 2 | | | | | | [place], [place] | | | | | | [address] | | | | | | [phone] | | | +--------+ + + + [...]
--- OUTSIDE RECORDS SUMMARY | ~2020-03-18 | XMS | Encounter Summary ---
Demographics + + + | Address | [address] | | | [place] [address] | + + + | Home Phone [...] [place] | | | | | [address] | | + + + + + Care Team Providers + +------+ + | Care Software Technician Name | Role | Phone | [...] 2018 | on | Center at [facility] [address]29 | ACNP [address] | | | | | [address] | Ave [place], [place] | | | | | Mailcode: Center | [address] | | | | | for Health and | [phone] | | | | | Healing, Building 2 | | | | | | [place], [place] | | | | | | [address] | | | | | | [phone] | | | +--------+ + + + [...]
--- OUTSIDE RECORDS SUMMARY | ~2020-03-18 | XMS | Encounter Summary ---
Demographics + + + | Address | [address] | | | [place] [address] | + + + | Home Phone [...] [place] | | | | | [address] | | + + + + + Care Team Providers + +------+ + | Care Chalker Soles Name | Role | Phone | + [...] evaluation | | 2018 | cheduled | [facility] at | | | | | | MPV | | | | | | Stay [address] | | | | | | [address] | | | | | | Mailcode: [id number] | | | | | | [facility] | | | | | | [address] [place], [place] | | | | | | [address] | | | | | | [phone] | | | +--------+ + + + [...] perfume, lotions or powder. Remove any nail swedish from at least one fingernail. Do not [...] your procedure. Surgery Check in Locations Admitting [facility] Surgery Check in Time: Someone from your surgeon's office or [facility] will provide you with information regarding your [...] it is after office hours, call the [facility] demolition hammer operator at [phone] and ask them to page your doc tor. documented in this encounter Plan of Treatment Not on filedocumented as of this encounter Visit Diagnoses Not on filedocumented in this encounter"
--- OUTSIDE RECORDS SUMMARY | ~2020-03-18 | XMS | Encounter Summary ---
Demographics + + + | Address | [address] | | | [place] [address] | + + + | Home Phone [...] [place] | | | | | [address] | | + + + + + Care Team Providers + +------+ + | Care Clinical Trials Manager Name | Role | Phone | [...] | bariatric | AGACNP [address] | [address] [facility] | | | | | surgery | [address] | [address] | | | | | History of | [place], | [place], | | | | | abdominal | [place] | [place] | | | | | surgery | [address] | [address] | | | | | Recurrent | Phone: | Phone: | | | | | ventral | | [phone] | | | | | hernia | Fax: | Fax: | | | | | Abdominal | [phone] | [phone] | | | | | pain, | [...] 2019 | Encounter | Center at [facility] 5582 | AGACNP [address] | | | | | [address] | [place], [place] | | | | | Mailcode: Center | [address] | | | | | for Health and | | | | | | [facility] 2 | | | | | | [place], [place] | | | | | | [address] | | | | | | | [...]
--- OUTSIDE RECORDS SUMMARY | ~2020-03-18 | XMS | Encounter Summary ---
Demographics + + + | Address | [address] | | | [place] [address] | + + + | Home Phone [...] [place] | | | | | [address] | | + + + + + Care Team Providers + +------+ + | Care Electronics Detail Draftsperson Name | Role | Phone | + +------+ + | Aleshia Martinez PA-C | PCP | | + +------+ + Encounter Details +--------+ + + + + | Date | Type | Department | Care Team | Description | +--------+ + + + + | 09/28/ | MyChart | Digestive Health | Shu | RE: Husbands job | | 2019 | Encounter | [place] at [facility] [address] | MD [address] | needs a note / | | | | [address] | [address] | questions from [place] | | | | Mailcode: Center | [place], [place] | | | | | for Health and | [address] | | | | | [facility] 2 | [phone] | | | | | [place], [place] | | | | | | [address] | | | | | | [phone] | | | +--------+ + + + [...]
--- OUTSIDE RECORDS SUMMARY | ~2020-03-18 | XMS | Encounter Summary ---
Demographics + + + | Address | [address] | | | [place] [address] | + + + | Home Phone [...] [place] | | | | | [address] | | + + + + + Care Team Providers + +------+ + | Care Subwarehouse Supervisor Name | Role | Phone | [...] | | | | | | | [place], [place] | | | | | | | [address] | | | | | | | Phone: | | | | | | | [phone] | | | | | | | Fax: | | | | | | | [phone] | + +--------+ + + + + Encounter Details +--------+---------+ + + + | Date | Type | Department | Care Team | Description | +--------+---------+ + + + | 01/06/ | Office | Digestive Health | Chetna Alves, JOEL | Morbid obesity with | | 2017 | Visit | Center at [facility] 3485 | [address] | BMI of 40.0-44.9, | | | | [facility] | [address] [place], | adult (HCC) (Primary | | | | for Health and | [place] [address] | Dx); Ventral hernia | | | | Healing, Building 2 | | with obstruction | | | | [place], [place] | | and without | | | | [address] | | gangrene; Borderline | | | | [phone] | | diabetes | +--------+---------+ + + [...] of Visit: 3:10 until 4:00 (50 minutes sxgv-ic-yeyv with patient) SUBJECTIVE: Pt comes in alone from [facility]. Patient viewed online seminar prior to visit. [...] or dr ink water. Has been doing Reaction. Says she is alone a lot. Weight [...] of toast, bowl of cereal, granola + kyrgyz yogu rt Lunch: leftovers (because she is [...] 2 pre-surgery classes. 4. Call or send Mixgart message to dietitian with any questions. Contact information was provided. Follow up with dietitian 1-2 weeks after surgery at first post-op visit. Chetna Alves RD, CNSC, LD [facility] Bariatrics [phone] documented in this enco unter Plan of Treatment Not on filedocumented as of this encounter Procedures + +--------+ + + + | Procedure Name | Priori | Date/Time | Associated Diagnosis | Comments | | | ty | | | | + +--------+ + + + | [place] MNT INITIAL | Routin | 01/07/2018 | Ventral hernia | | | ASSESSMNT X15MIN | e | 7:51 AM | with obstruction and | | | | | PDT | without gangrene | | | | | | Morbid obesity with | | | | | | BMI of 40.0-44.9, | | | | | | adult ([facility]) | | | | | | Borderline diabetes | | + +--------+ + + + documented in this encounter Visit Diagnoses + + | Diagnosis | + + | Morbid obesity with BMI of 40.0-44.9, adult ([facility]) - Primary | + + | 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
--- OUTSIDE RECORDS SUMMARY | ~2020-03-18 | XMS | Encounter Summary ---
Demographics + + + | Address | [address] | | | [place] [address] | + + + | Home Phone [...] [place] | | | | | [address] | | + + + + + Care Team Providers + +------+ + | Care Life Insurance Agent Name | Role | Phone | [...] | | 2019 | | Center at [facility] [address]604 | [address] | | | | | [address] | [address] | | | | | Mailcode: [place] | [place], [place] | | | | | [facility] and | [address] | | | | | [facility] 2 | [phone] | | | | | [place], [place] | | | | | | [address] | | | | | | [phone] | | | +--------+ + + + [...]
--- OUTSIDE RECORDS SUMMARY | ~2020-03-18 | XMS | Encounter Summary ---
Demographics + + + | Address | [address] | | | [place] [address] | + + + | Home Phone [...] [place] | | | | | [address] | | + + + + + Care Team Providers + +------+ + | Care Writing Tutor Name | Role | Phone | + [...] Outside Records | | 2018 | | [place] [address] | [facility] [address] | Received (01/22/2018 | | | | [place] Mailcode: CH4S | [place], [place] | ED Notes- St. | | | | [facility] | [address] | [place]) | | | | and Healing, | [phone] | | | | | [facility] | | | | | | [place], [place] | | | | | | [address] | | | | | | [phone] | | | +--------+ + + + [...]
--- OUTSIDE RECORDS SUMMARY | ~2020-03-18 | XMS | Encounter Summary ---
Demographics + + + | Address | [address] | | | [place] [address] | + + + | Home Phone [...] [place] | | | | | [address] | | + + + + + Care Team Providers + +------+ + | Care Plastic Mould Maker Name | Role | Phone | [...] | | | | | | | [place], [place] | | | | | | | [address] | | | | | | | Phone: | | | | | | | [phone] | | | | | | | Fax: | | | | | | | [phone] | + +--------+ + + + + Encounter Details +--------+---------+ + + + | Date | Type | Department | Care Team | Description | +--------+---------+ + + + | 09/29/ | Office | Digestive Health | Tea Reece, | S/P laparoscopic | | 2018 | Visit | Center at [facility] [address] | sleeve gastrectomy | | | | SULLY [facility] | [address] | (Primary Dx) | | | | for Health and | [place], [place] | | | | | [facility] 2 | [address] | | | | | [place], [place] | | | | | | [address] | | | | | | [phone] | | | +--------+---------+ + + + [...] of visit: 10:42am to 11:08am (26 minutes jzys-fn-gaew with patient) Surgery: Sleeve Gastrectomy Date of [...] multivitamin & mineral (with iron) supplement, 2/day -5415-9383 mg calcium citrate with vitamin D/day (take in divided doses, not within 2 hour s of multivitamin or iron supplement) -500 mcg/day sublingual B12 supplement (or monthly injections) Continued to reinforce importance of mindful eating. Continue to increase physical activity. Follow up in [address], Pager # [phone] signed by Tea Reece RD at 09/29/2018 11:21 AM PSTdocument ed in this encounter Plan of Treatment Not on filedocumented as of this encounter Procedures + +--------+ + + + | Procedure Name | Priori | Date/Time | Associated Diagnosis | Comments | | | ty | | | | + +--------+ + + + | [place] MNT RE-ASSESSMNT | Routin | 09/29/2018 | [...]
--- OUTSIDE RECORDS SUMMARY | ~2020-03-18 | XMS | Encounter Summary ---
Demographics + + + | Address | [address] | | | [place] [address] | + + + | Home Phone [...] [place] | | | | | [address] | | + + + + + Care Team Providers + +------+ + | Care Historic Sites Registrar Name | Role | Phone | + [...] | | | | Hospital Admitting | [place], [place] | | | | | Desk Located on the | [address] | | | | | 9th floor | [phone] | | | | | [place], [place] | | | | | | [address] | | | +--------+---------+ + + + [...] e different from the original. [facility] - [place] SURGERY TEAM INPATIENT DISCHARGE SUMMARY Author: Shayne Laguerre DNP AGACNP-BC Attending Physician: Bryson Ireland MD PCP: Aleshia Martinez PA-C Admission Date: 09/22/2019 Discharge Date: 09/25/2019 Diagnosis: Recurrent incarcerated incisional ventral hernia. Procedure: 1.Exploratory laparotomy. 2.Excision of prior hernia mesh r6fykpvlip pieces.2.5 hours spent exc ising mesh including [...] labs/studies: None Discharging Provider: Shayne Laguerre DNP [facility] Attending Physician: MD Shayne Mcdonough DNP [facility] Pager# [phone] 9:06 AM 09/25/2019 Vega colunga in this [...] hours by calling the surgery office at [phone]. After hours, weekends and holidays, you may call the hospital semiautomatic stitcher operator at [phone] and have the phone operator Green Team for general surgery paged. Discharge [...] every 4-6 hours. Tylenol: You may use gfys-lyw-nesusan (OTC) acetaminophen (Tylenol) for milder pain. Do [...] medications with Hydrocodone such as Vicodin or [place]. It is important to keep track of [...] out a dark red color and becomes blister packaging machine operator and eventually a straw color. * Wash [...] removal. If you live ou t of [facility], we will plan to talk with your [...] Hilda Chua MD - 09/24/2019 6:38 AM [facility] Admission Date: [...] incarcerated incisional hernia s/p repair. -transition from RUBBER COVERING MACHINE OPERATOR to orals -continue drain. #low UOP -resolving, [...] #Recurrent incarcerated incisional hernia s/p repair. -continue RUBBER COVERING MACHINE OPERATOR and stafford until tomorrow -continue drain. #low [...] [facility] | [address] | [place] [address] | | | SERVICES, CORE | PARK [...] + + | [facility] | [address] [facility] [address] | [place] [address] | | | SERVICES, CORE | PARK [...] | | | LABORATORY | | | BELGI[place] | | | SERVICES, | | | [...] MDRD equation recommended by the National | [facility] | | Kidney Disease Education Program. Estimated [...] + + | [facility] | [address] | [place] [address] | | | NILO, KUSH | SHAHLA [...] [facility] | [address] | [place] [address] | | | SERVICES, CORE | PARK [...] [place] | [address] | [place], [place] | | | [facility]ARE | [address] | [address] | | | TESTS | | | [...] ABDI | [address] | [place], [place] | | | [facility] | [address] | [address] | | | TESTS | | | [...] Lopez T[facility]IR[facility] | [address] | [place], [place] | | | [facility] | [address] | [address] | | | TESTS | | | [...]
--- OUTSIDE RECORDS SUMMARY | ~2020-03-18 | XMS | Encounter Summary ---
Demographics + + + | Address | [address] | | | [place] [address] | + + + | Home Phone [...] [place] | | | | | [address] | | + + + + + Care Team Providers + +------+ + | Care Artificial Flowers Dyer Name | Role | Phone | + [...]
--- OUTSIDE RECORDS SUMMARY | ~2020-03-18 | XMS | Encounter Summary ---
Demographics + + + | Address | [address] | | | [place] [address] | + + + | Home Phone [...] [place] | | | | | [address] | | + + + + + Care Team Providers + +------+ + | Care Addiction Professional Name | Role | Phone | + [...] | | | | | | [place], [place] | | | | | | | [address] | | | | | | | Phone: | | | | | | | [phone] | | | | | | | Fax: | | | | | | | [phone] | + +--------+ + + + + Encounter Details +--------+---------+ + + + | Date | Type | Department | Care Team | Description | +--------+---------+ + + + | 11/25/ | Office | Digestive Health | Tea Reece, | S/P laparoscopic | | 2019 | Visit | Center at [facility] [address] | [address] | sleeve gastrectomy | | | | [facility] | [address] | (Primary Dx) | | | | for Health and | [place], [place] | | | | | [facility] 2 | [address] | | | | | [place], [place] | | | | | | [address] | | | | | | [phone] | | | +--------+---------+ + + + [...] of visit: 10:00 to 10:28 (28 minutes xrll-nq-fadx with patient) Surgery: Sleeve Gastrectomy Date of [...] progression: Begin stage 4 according to [facility] diet guidelines -Provided written & verbal [...] multivitamin & mineral (with iron) supplement, 2/day -7986-9017 mg calcium citrate with vitamin D/day (take in divided doses, not within 2 hour s of multivitamin or iron supplement) -500 mcg/day sublingual B12 supplement (or monthly injections) Continued to reinforce importance of mindful eating. Continue to increase physical activity. Follow up in [address], Pager # [phone] signed by Tea Reece RD at 11/25/2018 10:38 AM PSTdocument ed in this encounter Plan of Treatment Not on filedocumented as of this encounter Procedures + +--------+ + + + | Procedure Name | Priori | Date/Time | Associated Diagnosis | Comments | | | ty | | | | + +--------+ + + + | [place] MNT RE-ASSESSMNT | Routin | 11/25/2018 | [...]
--- OUTSIDE RECORDS SUMMARY | ~2020-03-18 | XMS | Encounter Summary ---
Demographics + + + | Address | [address] | | | [place] [address] | + + + | Home Phone [...] [place] | | | | | [address] | | + + + + + Care Team Providers + +------+ + | Care Pharmacy Technician Assistant Name | Role | Phone | [...] | | | | | | | [place], [place] | | | | | | | [address] | | | | | | | Phone: | | | | | | | [phone] | | | | | | | Fax: | | | | | | | [phone] | + +--------+ + + + + Encounter Details +--------+---------+ + + + | Date | Type | Department | Care Team | Description | +--------+---------+ + + + | 09/07/ | Office | Digestive Health | [address] | S/P laparoscopic | | 2018 | Visit | Center at [facility] [address] | [address] | sleeve gastrectomy | | | | [facility] | [address] [facility], | (Primary Dx); Morbid | | | | for Health and | [place] [address] | obesity with BMI of | | | | [facility], [facility] 2 | | 40.0-44.9, adult | | | | [place], [place] | | ([facility]); Borderline | | | | [address] | | diabetes | | | | [phone] | | | +--------+---------+ + + + [...] of visit: 1:03 to 1:28 (25 minutes wory-iz-tuqq with patient) Surgery: Sleeve Gastrectomy Date of [...] choices: Water, Popsicles, Powerade Supplementation: multivitamin - Comstock's, calcium with vitamin D - Citracal Petites [...] multivitamin & mineral (with iron) supplement, 2/day -1203-6901 mg calcium citrate with vitamin D/day (take [...] month post-op Chetna Alves RD, CNSC, LD [facility] Bariatrics [phone] documented in this enco unter Plan of Treatment Not on filedocumented as of this encounter Procedures + +--------+ + + + | Procedure Name | Priori | Date/Time | Associated Diagnosis | Comments | | | ty | | | | + +--------+ + + + | [place] MNT RE-ASSESSMNT | Routin | 09/07/2018 | [...]
--- OUTSIDE RECORDS SUMMARY | ~2020-03-18 | XMS | Encounter Summary ---
Demographics + + + | Address | [address] | | | [place] [address] | + + + | Home Phone [...] [place] | | | | | [address] | | + + + + + Care Team Providers + +------+ + | Care Sales Applications Engineer Name | Role | Phone | [...] | MD [address] | (05/10/15 [address] A/P) | | | | [address] | [place], [place] | | | | | Mailcode: [place] | [address] | | | | | for Health and | [phone] | | | | | [place] [address] | | | | | | [place], [place] | | | | | | [address] | | | | | | [phone] | | | +--------+ + + + [...]
--- OUTSIDE RECORDS SUMMARY | ~2020-03-18 | XMS | Encounter Summary ---
Demographics + + + | Address | [address] | | | [place] [address] | + + + | Home Phone [...] [place] | | | | | [address] | | + + + + + Care Team Providers + +------+ + | Care Director Of Contracts Name | Role | Phone | + +------+ + | Aleshia Martinez PA-C | PCP | | + +------+ + Encounter Details +--------+ + + + + | Date | Type | Department | Care Team | Description | +--------+ + + + + | 05/03/ | Abstract | Digestive Health | Clinic, Surgery | | | 2017 | | [place] at [facility] [address] | | | | | | [address] | | | | | | Mailcode: [place] | | | | | | for Health and | | | | | | Healing, Building 2 | | | | | | [place], [place] | | | | | | [address] | | | | | | [phone] | | | +--------+ + + + [...]
--- OUTSIDE RECORDS SUMMARY | ~2020-03-18 | XMS | Encounter Summary ---
Demographics + + + | Address | [address] | | | [place] [address] | + + + | Home Phone [...] [place] | | | | | [address] | | + + + + + Care Team Providers + +------+ + | Care Concrete Paving Supervisor Name | Role | Phone | [...] 2017 | Encounter | Center at [facility] [address] | MD [address] | Acid reflux | | | | [address] | [place], [place] | | | | | Mailcode: [place] | [address] | | | | | for Health and | | | | | | [facility] 2 | | | | | | [place], [place] | | | | | | [address] | | | | | | | [...]
--- OUTSIDE RECORDS SUMMARY | ~2020-03-18 | XMS | Encounter Summary ---
Demographics + + + | Address | [address] | | | [place] [address] | + + + | Home Phone [...] [place] | | | | | [address] | | + + + + + Care Team Providers + +------+ + | Care Remediation Bioanalytics Consultant Name | Role | Phone | [...] | Center at [facility] [address] | MD [address] | | | | | [address] | [place], [place] | | | | | Mailcode: Center | [address] | | | | | for Health and | | | | | | [facility] 2 | | | | | | [place], [place] | | | | | | [address] | | | | | | | [...]
--- OUTSIDE RECORDS SUMMARY | ~2020-03-18 | XMS | Encounter Summary ---
Demographics + + + | Address | [address] | | | [place] [address] | + + + | Home Phone [...] [place] | | | | | [address] | | + + + + + Care Team Providers + +------+ + | Care Formwork Carpenter Name | Role | Phone | [...] 2018 | Visit | Center at [facility] [address] | ACNP [address] | sleeve gastrectomy | | | | [address] | Ave [place], [place] | (Primary Dx); | | | | Mailcode: Center | [address] | Vitamin D | | | | for Health and | [phone] | deficiency; Vitamin | | | | [facility] | | B 12 deficiency; | | | | [place], [place] | | Morbid obesity (HCC) | | | | [address] | | | | | | | [...] encounter Patient Instructions Patient Instructions Emily Martinez [facility] - 09/07/2018 10:50 AM PST3. Take acid ammonia distiller fo r first 3 mos, then wean [...] cium, dairy or acid reducers) Calcium citrate 0282-5786 mg per day with vitamin D 1000 [...] stomach treated with diaza romeo. Scheduled with rand tacker following this appointment. Arrived on time, rooming [...] fallopian tube Laparoscopic sleeve gastrectomy 08/31/[address] [facility] [address] Downing Social History Social History Marital [...] week 2. Labs:none today 3. Take acid ammonia distiller for first 3 mos, then wean off [...] in appointment: 30 Emily Martinez DNP, ACNP, FIBERLINE SUPERVISOR Palliative Care Coordinator Bariatric Surgery [facility] documented in this encounter Plan of Treatment [...]
--- OUTSIDE RECORDS SUMMARY | ~2020-03-18 | XMS | Encounter Summary ---
Demographics + + + | Address | [address] | | | [place] [address] | + + + | Home Phone [...] [place] | | | | | [address] | | + + + + + Care Team Providers + +------+ + | Care Commodity Analyst Name | Role | Phone | [...] + + | 09/22/ | Hospital | [address] | [place], | | | 2019 - | Encounter | [address] | MD Bryson [address] | | | | | [place], [place] | [address] | | | 09/25/ | | [address] | [place], [place] | | | 2019 | | [phone] | [address] | | | | | | [phone] | | | | | | | [...] might b e different from the original. [facility] GENER[facility]GERY - GREEN SURGERY TEAM INPATIENT DISCHARGE SUMMARY Author: Shayne Laguerre DNP AGACNP-BC Attending Physician: Bryson Ireland MD PCP: Aleshia Martinez PA-C Admission Date: 09/22/2019 Discharge Date: 09/25/2019 Diagnosis: Recurrent incarcerated incisional ventral hernia. Procedure: 1.Exploratory laparotomy. 2.Excision of prior hernia mesh z2lwhfyjgm pieces.2.5 hours spent exc ising mesh including [...] WWP Outstanding labs/studies: None Discharging Provider: [facility] Attending Physician: MD Shayne Mcdonough DNP [facility]oyal [facility] Pager# [phone] 9:06 AM 09/25/2019 Vega colunga in this [...] hours by calling the surgery office at [phone]. After hours, weekends and holidays, you may call the hospital retarder operator at [phone] and have the medical operations supervisor [place] Team for general surgery paged. Discharge Instr [...] every 4-6 hours. Tylenol: You may use flem-mwj-lgcdfkb (OTC) acetaminophen (Tylenol) for milder pain. Do [...] medications with Hydrocodone such as Vicodin or [place]. It is important to keep track of [...] Visit Summary Signature Electronically signed by: GAUTAM Colo, 09/25/2019 at 9:06 AMElectr onically signed by [...] out a dark red color and becomes kitchen utility associate and eventually a straw color. * Wash [...] removal. If you live ou t of [facility], we will plan to talk with [...] documented as of this encounter Progress Notes Hilad Chua MD - 09/24/2019 6:38 AM PSTDEPARTMENT [...] incarcerated incisional hernia s/p repair. -transition from RN CARDIAC CATH to orals -continue drain. #low UOP -resolving, saline lock -remove stafford Dispo: likely 3 days total inpatient. HILDA CHUA MD General [facility] garcia MD - 09/23/2019 8:56 AM PSTDEPARTMENT OF SURGERY [place] [facility] Admission Date: 09/22/2019 ( LOS: 1 [...] #Recurrent incarcerated incisional hernia s/p repair. -continue RN CARDIAC CATH and stafford until tomorrow -continue drain. #low [...] [facility] | [address] | [place] [address] | | | SERVICES, CORE | PARK [...] [facility] | [address] | [place] [address] | | | SERVICES, CORE | PARK [...] | | | LABORATORY | | | [place] | | | SERVICES, | | | [...] | + + + + + | [facility] | [address] | [place] [address] | | | NILO, KUSH | SHAHLA [...] [facility] | [address] | [place] [address] | | | SERVICES, CORE | PARK [...] - [facility] | [address] | [place], [place] | | | [facility] | [address] | [address] | | | TESTS | | | [...] ABDI | [address] | [place], [place] | | | [facility] OF [facility] | [address] | [address] | | | TESTS | | | | + + + + + INTRAPROCEDURE IMAGING (09/22/2019 10:23 AM [facility]) + + | Specimen | [...] [facility] | [address] | [place], [place] | | | [facility]O [facility] | [address] | [address] | | | TESTS | | | [...] + + +---+---+---+ | HYDROmorphone 0.5 mg/mL RN CARDIAC CATH | Rate/Dos | 09/24/20 | | | | | (ADULT STANDARD DOSE) in 0.9 % | e Verify | 19 7:30 | | | | | NaCl RN CARDIAC CATH Dose: 0.5 mg, Lockout | | AM [...] mg | | | | bolus from RN CARDIAC CATH (ADULT STANDARD | from | 19 8:00 | | | | | DOSE) 0.2 mg intravenous, EVERY | Same Bag | PM PST | | | | | 10 MINUTES NEEDED, Starting | | | | | | | 09/22/19 at 1611, Until Sun | | | | | | | 09/24/19 at 0723, RN CARDIAC CATH clinician | | | | | | | rescue bolus. If exceeding 2 | | | | | | | doses in a rolling 60 minute time | | | | | | | frame, contact provider for RN CARDIAC CATH | | | | | | | [...]
--- OUTSIDE RECORDS SUMMARY | ~2020-03-18 | XMS | Encounter Summary ---
Demographics + + + | Address | [address] | | | [place] [address] | + + + | Home Phone [...] [place] | | | | | [address] | | + + + + + Care Team Providers + +------+ + | Care Forklift Mechanic Name | Role | Phone | [...] To Surgery | | 2017 | | [place] at [facility] [address] | | - General | | | | [address] | | | | | | Mailcode: [place] | | | | | | for Health and | | | | | | [facility], Building 2 | | | | | | [place], [place] | | | | | | [address] | | | | | | [phone] | | | +--------+ + + + [...]
--- OUTSIDE RECORDS SUMMARY | ~2020-03-18 | XMS | Encounter Summary ---
Demographics + + + | Address | [address] | | | [place] [address] | + + + | Home Phone [...] [place] | | | | | [address] | | + + + + + Care Team Providers + +------+ + | Care Thermoscrew Operator Name | Role | Phone | [...] | 2018 | on | Center at [facility] [address] | | | | | | [address] | | | | | | Mailcode: Center | | | | | | for Health and | | | | | | Healing, Building 2 | | | | | | [place], [place] | | | | | | [address] | | | | | | [phone] | | | +--------+ + + + [...]
--- OUTSIDE RECORDS SUMMARY | ~2020-03-18 | XMS | Encounter Summary ---
Demographics + + + | Address | [address] | | | [place] [address] | + + + | Home Phone [...] [place] | | | | | [address] | | + + + + + Care Team Providers + +------+ + | Care Train Brakeman Name | Role | Phone | + [...] Outside Records | | 2018 | | [place] [address] | [facility] [address] | Received (01/22/2018 | | | | [place] Mailcode: CH4S | [place], [place] | ED Notes- St. | | | | [facility] | [address] | [place]) | | | | and Healing, | [phone] | | | | | [facility] | | | | | | [place], [place] | | | | | | [address] | | | | | | [phone] | | | +--------+ + + + [...]
--- OUTSIDE RECORDS SUMMARY | ~2020-03-18 | XMS | Encounter Summary ---
Demographics + + + | Address | [address] | | | [place] [address] | + + + | Home Phone [...] [place] | | | | | [address] | | + + + + + Care Team Providers + +------+ + | Care Net Finisher Name | Role | Phone | [...] | 2018 | Review | Center at [facility] [address] | ACNP [address] | Recommendations | | | | [address] | Ave [place], [place] | | | | | Mailcode: [place] | [address] | | | | | [facility] and | [phone] | | | | | [place] [address] | | | | | | [place], [place] | | | | | | [address] | | | | | | [phone] | | | +--------+ + + + [...]
--- OUTSIDE RECORDS SUMMARY | ~2020-03-18 | XMS | Encounter Summary ---
Demographics + + + | Address | [address] | | | [place] [address] | + + + | Home Phone [...] [place] | | | | | [address] | | + + + + + Care Team Providers + +------+ + | Care Glass Glazier Name | Role | Phone | + [...] | | | | | | | [place], [place] | | | | | | | [address] | | | | | | | Phone: | | | | | | | [phone] | | | | | | | Fax: | | | | | | | [phone] | +--------+--------+ + + + + Encounter [...] | | | [address] | [place], [place] | adult (HCC) (Primary | | | | Mailcode: Center | [address] | Dx); Borderline | | | | for Health and | [phone] | diabetes; Essential | | | | Healing, Building 2 | | hypertension; | | | | [place], [place] | | Ventral hernia with | | | | [address] | | obstruction and | | | | [phone] | | without gangrene | +--------+---------+ + [...] the resident s note. Es Bingham MD, [facility], FACS ES BINGHAM MD [facility] 6TH FLOOR [address] Mailcode: [facility] [place] [address] Nba Finn MD - 02/28/2018 2:25 PM PDT [facility] Department of Surgery [facility] Note Attending: Es Bingham MD Author: Nba Amaya MD Date: 02/28/18 ID: Saar Caballero is a 32 y.o. female with [...] Nba Amaya MD General Surgery, PGY-2 Pager [phone] documented in thi s encounter Plan of [...]
--- OUTSIDE RECORDS SUMMARY | ~2020-03-18 | XMS | Encounter Summary ---
Demographics + + + | Address | [address] | | | [place] [address] | + + + | Home Phone [...] [place] | | | | | [address] | | + + + + + Care Team Providers + +------+ + | Care Afterschool Name | Role | Phone | + [...] [address] | | | | | | [place] | | | | | | [address] | | | | | | [phone] | | | +--------+ + + + [...] | + + + + + | [facility] | [address] | [place] [address] | | | SERVICES, CORE | SHAHLA [...] [facility] | [address] | [place] [address] | | | SERVICES, CORE | PARK [...] [facility] | [address] | [place] [address] | | | SERVICES, CORE | [address]LA [place] | | | + + + + + documented in this encounter Visit Diagnoses Not on filedocumented in this encounter"
--- OUTSIDE RECORDS SUMMARY | ~2020-03-18 | XMS | Encounter Summary ---
Demographics + + + | Address | [address] | | | [place] [address] | + + + | Home Phone [...] [place] | | | | | [address] | | + + + + + Care Team Providers + +------+ + | Care Applied Anthropologist Name | Role | Phone | + [...] | | | | | hernia | [address] [facility] | | | | | | Procedures | Jass Lopez | | | | | | CT ABDOMEN | Rd | | | | | | AND PELVIS | [place], [place] | | | | | | [place] IV | [address] | | | | | | CONTRAST | Phone: | | | | | | | [phone] | | | | | | | Fax: | | | | | | | [phone] | | + +--------+ + + + [...] Patient's Condition | | 2019 | | [place] [address] | MD Bryson [address] | Worsened | | | | [address] | [address] | | | | | Mailcode: [place] | [place], [place] | | | | | [facility] and | [address] | | | | | [facility] 2 | [phone] | | | | | [place], [place] | | | | | | [address] | | | | | | [phone] | | | +--------+ + + + [...]
--- OUTSIDE RECORDS SUMMARY | ~2020-03-18 | XMS | Encounter Summary ---
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 Download the connie on your smartphone or visit the website www.[employer] Click "join a meeting " enter the meeting number below at the scheduled time. Our monthly schedule is as follows: The Wednesday of every month at 5:30PM The Wednesday of every month at 1:00PM The meeting number is: [phone] Please note that this is an optional [...] fallopian tube Laparoscopic sleeve gastrectomy 08/31/2018 [facility] Dr Downing Social History Socioeconomic History Marital [...] file Gets together: Not on file Attends faith service: Not on file Active member of [...] to plan and will call and/or send klinify message if any issues. Start time 1445, end time 1510. I spent a total of 25 minutes face to face with this patie nt. Over 50% of visit was in counseling. JOSETTE Seaman Bariatric Surgery Nurse Practitioner [facility] | [address] | [place], [place] | [id number] | documented in th is encounter Plan of Treatment + +------+--------+ + [...]
--- OUTSIDE RECORDS SUMMARY | ~2020-03-18 | XMS | Encounter Summary ---
Demographics + + + | Address | [address] | | | [place] [address] | + + + | Home Phone [...] [place] | | | | | [address] | | + + + + + Care Team Providers + +------+ + | Care Take Out Waiter/Waitress Name | Role | Phone | + [...]
--- OUTSIDE RECORDS SUMMARY | ~2020-03-18 | XMS | Encounter Summary ---
Demographics + + + | Address | [address] | | | [place] [address] | + + + | Home Phone [...] [place] | | | | | [address] | | + + + + + Care Team Providers + +------+ + | Care Controller Repairer And Tester Name | Role | Phone | [...] 2018 | Encounter | Center at [facility] [address]706 | ACNP [address] | | | | | [address] | Ave [place], [place] | | | | | Mailcode: Center | [address] | | | | | for Health and | [phone] | | | | | Healing, Building 2 | | | | | | [place], [place] | | | | | | [address] | | | | | | [phone] | | | +--------+ + + + [...]
--- OUTSIDE RECORDS SUMMARY | ~2020-03-18 | XMS | Encounter Summary ---
Demographics + + + | Address | [address] | | | [place] [address] | + + + | Home Phone [...] [place] | | | | | [address] | | + + + + + Care Team Providers + +------+ + | Care Environmental Aide Name | Role | Phone | [...] at | | | | | | [facility] | | | | | | [address] | | | | | | Mail Code: OC8PM | | | | | | [facility] | | | | | | and Healing, | | | | | | [address] | | | | | | [place], [place] | | | | | | [address] | | | | | | [phone] | | | +--------+ + + + + Anesthesia Record + + + + + | Procedure Name | Responsible | Anesthesia Start | Anesthesia Stop Time | | | Anesthesiologist | Time | | + + + + + | RECURRENT VENTRAL | Rafi Askew MD | 09/22/19 1158 | 09/22/19 5555 | | HERNIA REPAIR AND | | [...] | | Oral; Cuffed; 09/22/19; 1544 | HARDSCAPE FOREMAN | HARDSCAPE FOREMAN | +--------+ + + + documented in [...] exist, including nicotine patches and gum. The [place] Quit Line can also be reached at 1.800.QUIT.NOW ( ) or online at www.quitnow.net/[place]. Surgery check-in location: [facility] Surgery Check in Time: you will receive a call 1-3 business days before your surgery confi rming your exact arrival/check-in time for your surgery day. We know that planning for surg lyndsay can be stressful and involve a lot of family/friend/transportation coordination as well as hotel arrangements. The [facility] does not have access to check in [facility], and we encourage you to contact [...] ch as Uber/Lyft), or public transportation. An Uber/Lyft/funeral car driver does not count as the responsible [...] it is after office hours, call the [facility] jack machine operator at [phone] and ask them to page him or h er. documented in this encounter Plan of Treatment Not on filedocumented as of this encounter Visit Diagnoses Not on filedocumented in this encounter
--- OUTSIDE RECORDS SUMMARY | ~2020-03-18 | XMS | Encounter Summary ---
Demographics + + + | Address | [address] | | | [place] [address] | + + + | Home Phone [...] [place] | | | | | [address] | | + + + + + Care Team Providers + +------+ + | Care Trial Court Justice Name | Role | Phone | + [...] | 2019 | Encounter | Center at [facility] [address] | MD Bryson [address] | paperwork | | | | [address] | [address] | | | | | Mailcode: Center | [place], [place] | | | | | for Health and | [address] | | | | | Healing, Building 2 | [phone] | | | | | [place], [place] | | | | | | [address] | | | | | | [phone] | | | +--------+ + + + [...]
--- OUTSIDE RECORDS SUMMARY | ~2020-03-18 | XMS | Encounter Summary ---
Demographics + + + | Address | [address] | | | [place] [address] | + + + | Home Phone [...] [place] | | | | | [address] | | + + + + + Care Team Providers + +------+ + | Care Pulley Worker Name | Role | Phone | [...] | [place] | | | | | ([facility]) | [address] | [address] | | | | | Procedures | [address] | Physician's | | | | | CONSULT TO | Jessica Seuplveda | [place] 3rd | | | | | HEALTH | [place], [place] | floor | | | | | PROMOTION & | [address] | [place], [place] | | | | | SPORTS | | [address] | | | | | MEDICINE | | Phone: | | | | | PROVIDER | | [phone] | | | | | | | Fax: | | | | | | | [phone] | +--------+--------+ + + + + Consultation [...] | Bariatri Surg | | | with MEN'S CUSTOM HAIR PIECE CONSULTANT | | obesity | Ganesh Holden MD | [facility] [address] | | | | | ([facility]) | [address] | [address] | | | | | Procedures | [address] | Mailcode: | | | | | CONSULT TO | Jessica Sepulveda | Center for | | | | | BARIATRIC | [place], [place] | [facility] and | | | | | SURGERY | [address] | Healing, | | | | | | | Building 2 | | | | | | | [place], [place] | | | | | | | [address] | | | | | | | Phone: | | | | | | | [phone] | | | | | | | Fax: | | | | | | | [phone] | + + + + + + [...] | | | | hernia | | [address] | | | | | [...] | | | | | | [facility] [place] | | | | | | | [address] | | | | | | | Phone: | | | | | | | [phone] | | | | | | | Fax: | | | | | | | [phone] | +--------+--------+ + + + + Encounter [...] | | | [address] | [place], [place] | | | | | Mailcode: [place] | [address] | | | | | [facility] and | [phone] | | | | | Healing, Building 2 | | | | | | [place], [place] | | | | | | [address] | | | | | | [phone] | | | +--------+---------+ + + + [...] ES BINGHAM MD [facility] 6TH FLOOR [address] Mailcode: [place] [address] PATRAToSe cesar Pineda MD - 08/18/2017 12:30 PM PDTFormatting of this note might be different from the [facility] Department of Surgery Blue Surgery H&P Author: Ganesh Perze MD MIS Fellow 08/18/2017 12:25 PM ID: [...] her risk of complications is 35% (per [employer] connie). She is interested to talk to [...] constipation -referral with bariatric program -referral to industrial waste inspector -RTC once she has lost weight The above findings and plan were discussed with Dr. Bingham, who agrees. Ganesh Perez MD Minimally Invasive Surgery Fellow Formerly [facility] [place] Pager [phone] documente d in this encounter Plan of Treatment Not on filedocumented as of this encounter Visit Diagnoses + + | Diagnosis | + + | Morbid obesity (HCC) - Primary Morbid obesity | + + documented in this encounter
--- OUTSIDE RECORDS SUMMARY | ~2020-03-18 | XMS | Encounter Summary ---
Demographics + + + | Address | [address] | | | [place] [address] | + + + | Home Phone [...] [place] | | | | | [address] | | + + + + + Care Team Providers + +------+ + | Care Panel Lay Up Worker Name | Role | Phone | [...] 2017 | Encounter | Center at [facility] [address] | MD [address] | Acid reflux | | | | [address] | [place], [place] | | | | | Mailcode: [place] | [address] | | | | | for Health and | | | | | | [facility] 2 | | | | | | [place], [place] | | | | | | [address] | | | | | | | [...]
--- OUTSIDE RECORDS SUMMARY | ~2020-03-18 | XMS | Encounter Summary ---
Demographics + + + | Address | [address] | | | [place] [address] | + + + | Home Phone [...] [place] | | | | | [address] | | + + + + + Care Team Providers + +------+ + | Care Host/Hostess Restaurant Name | Role | Phone | + +------+ + | Aleshia Martinez PA-C | PCP | | + +------+ + Encounter Details +--------+ + + + + | Date | Type | Department | Care Team | Description | +--------+ + + + + | 05/03/ | Abstract | Digestive Health | Clinic, Surgery | | | 2017 | | [place] at [facility] [address] | | | | | | [address] | | | | | | Mailcode: [place] | | | | | | for Health and | | | | | | Healing, Building 2 | | | | | | [place], [place] | | | | | | [address] | | | | | | [phone] | | | +--------+ + + + [...]
--- OUTSIDE RECORDS SUMMARY | ~2020-03-18 | XMS | Encounter Summary ---
Demographics + + + | Address | [address] | | | [place] [address] | + + + | Home Phone [...] [place] | | | | | [address] | | + + + + + Care Team Providers + +------+ + | Care Dynamite Cartridge Crimper Name | Role | Phone | + [...] Pharmacy | | | | | | [address] | | | | | | [place] | | | | | | [address] | | | | | | [phone] | | | +--------+ + + + [...]
--- OUTSIDE RECORDS SUMMARY | ~2020-03-18 | XMS | Encounter Summary ---
Demographics + + + | Address | [address] | | | [place] [address] | + + + | Home Phone [...] [place] | | | | | [address] | | + + + + + Care Team Providers + +------+ + | Care Key Punch Teacher Name | Role | Phone | [...] [facility] [address] | MD [address] | | | | | [address] | [place], [place] | | | | | Mailcode: [place] | [address] | | | | | for Health and | | | | | | [facility] 2 | | | | | | [place], [place] | | | | | | [address] | | | | | | | [...]
--- OUTSIDE RECORDS SUMMARY | ~2020-03-18 | XMS | Encounter Summary ---
Demographics + + + | Address | [address] | | | [place] [address] | + + + | Home Phone [...] [place] | | | | | [address] | | + + + + + Care Team Providers + +------+ + | Care Livestock Inspector Name | Role | Phone | [...] floor | | | | | | [place], [place] | | | | | | [address] | | | +--------+ + + + [...]
--- OUTSIDE RECORDS SUMMARY | ~2020-03-18 | XMS | Encounter Summary ---
Demographics + + + | Address | [address] | | | [place] [address] | + + + | Home Phone [...] [place] | | | | | [address] | | + + + + + Care Team Providers + +------+ + | Care Grades 7 And 8 Visiting Teacher Name | Role | Phone | + +------+ + | Aleshia Martinez PA-C | PCP | | + +------+ + Encounter Details +--------+ + + + + | Date | Type | Department | Care Team | Description | +--------+ + + + + | 01/28/ | Abstract | Digestive Health | Clinic, Surgery | | | 2017 | | [place] at [facility] [address] | | | | | | [address] | | | | | | Mailcode: [place] | | | | | | for Health and | | | | | | Healing, Building 2 | | | | | | [place], [place] | | | | | | [address] | | | | | | [phone] | | | +--------+ + + + [...]
--- OUTSIDE RECORDS SUMMARY | ~2020-03-18 | XMS | Encounter Summary ---
Demographics + + + | Address | [address] | | | [place] [address] | + + + | Home Phone [...] [place] | | | | | [address] | | + + + + + Care Team Providers + +------+ + | Care Field Sales Agent Name | Role | Phone | [...]
--- OUTSIDE RECORDS SUMMARY | ~2020-03-18 | XMS | Encounter Summary ---
Demographics + + + | Address | [address] | | | [place] [address] | + + + | Home Phone [...] [place] | | | | | [address] | | + + + + + Care Team Providers + +------+ + | Care Cement Fittings Maker Name | Role | Phone | [...] | | | | | | | [place], [place] | | | | | | | [address] | | | | | | | Phone: | | | | | | | [phone] | | | | | | | Fax: | | | | | | | [phone] | + +--------+ + + + + Encounter Details +--------+---------+ + + + | Date | Type | Department | Care Team | Description | +--------+---------+ + + + | 09/29/ | Office | Digestive Health | Tea Reece, | S/P laparoscopic | | 2018 | Visit | Center at [facility] [address] | [address] | sleeve gastrectomy | | | | [address] [facility] | [address] | (Primary Dx) | | | | for Health and | [place], [place] | | | | | [facility] 2 | [address] | | | | | [place], [place] | | | | | | [address] | | | | | | [phone] | | | +--------+---------+ + + + [...] of visit: 10:42am to 11:08am (26 minutes maed-dl-jxhz with patient) Surgery: Sleeve Gastrectomy Date of [...] multivitamin & mineral (with iron) supplement, 2/day -5863-4892 mg calcium citrate with vitamin D/day (take in divided doses, not within 2 hour s of multivitamin or iron supplement) -500 mcg/day sublingual B12 supplement (or monthly injections) Continued to reinforce importance of mindful eating. Continue to increase physical activity. Follow up in [address], Pager # [phone] signed by Tea Reece RD at 09/29/2018 11:21 AM PSTdocument ed in this encounter Plan of Treatment Not on filedocumented as of this encounter Procedures + +--------+ + + + | Procedure Name | Priori | Date/Time | Associated Diagnosis | Comments | | | ty | | | | + +--------+ + + + | [place] MNT RE-ASSESSMNT | Routin | 09/29/2018 | [...]
--- OUTSIDE RECORDS SUMMARY | ~2020-03-18 | XMS | Encounter Summary ---
Demographics + + + | Address | [address] | | | [place] [address] | + + + | Home Phone [...] [place] | | | | | [address] | | + + + + + Care Team Providers + +------+ + | Care Director Of Convention Services Name | Role | Phone | + [...] | 2019 | | Center at [facility] [address] | MD [address] | | | | | [address] | [place], [place] | | | | | Mailcode: [place] | [address] | | | | | for Health and | | | | | | [place] [address] | | | | | | [place], [place] | | | | | | [address] | | | | | | | [...]
--- OUTSIDE RECORDS SUMMARY | ~2020-03-18 | XMS | Encounter Summary ---
Demographics + + + | Address | [address] | | | [place] [address] | + + + | Home Phone [...] [place] | | | | | [address] | | + + + + + Care Team Providers + +------+ + | Care Harvest Worker Fruit Name | Role | Phone | + [...] | | | [address] | [place], [place] | | | | | Mailcode: [place] | [address] | | | | | for Health and | [phone] | | | | | [place] [address] | | | | | | [place], [place] | | | | | | [address] | | | | | | [phone] | | | +--------+ + + + [...]
--- OUTSIDE RECORDS SUMMARY | ~2020-03-18 | XMS | Encounter Summary ---
Demographics + + + | Address | [address] | | | [place] [address] | + + + | Home Phone [...] [place] | | | | | [address] | | + + + + + Care Team Providers + +------+ + | Care Door Fitter Name | Role | Phone | + [...] | | 2016 | anned | Services [address] | | | | | | [address] | | | | | | Mailcode: [place]17A | | | | | | [facility] | | | | | | [place], [place] | | | | | | [address] | | | | | | [phone] | | | +--------+ + + + [...]
--- OUTSIDE RECORDS SUMMARY | ~2020-03-18 | XMS | Encounter Summary ---
Demographics + + + | Address | [address] | | | [place] [address] | + + + | Home Phone [...] [place] | | | | | [address] | | + + + + + Care Team Providers + +------+ + | Care Plumber Cub Name | Role | Phone | + +------+ + | Aleshia Martinez PA-C | PCP | | + +------+ + Encounter Details +--------+ + + + + | Date | Type | Department | Care Team | Description | +--------+ + + + + | 08/12/ | uRpertt | Digestive Health | Clinic, Surgery | RE: Possible surgery | | 2017 | Encounter | Center at [facility] [address] | | denial | | | | [address] | | | | | | Mailcode: Center | | | | | | for Health and | | | | | | Healing, Building 2 | | | | | | [place], [place] | | | | | | [address] | | | | | | [phone] | | | +--------+ + + + [...]
--- OUTSIDE RECORDS SUMMARY | ~2020-03-18 | XMS | Encounter Summary ---
Demographics + + + | Address | [address] | | | [place] [address] | + + + | Home Phone [...] [place] | | | | | [address] | | + + + + + Care Team Providers + +------+ + | Care Harness Inspector Name | Role | Phone | [...] To Surgery | | 2017 | | [place] at [facility] [address] | | - General | | | | [address] | | | | | | Mailcode: [place] | | | | | | for Health and | | | | | | [facility] Er, Building 2 | | | | | | [place], [place] | | | | | | [address] | | | | | | [phone] | | | +--------+ + + + [...]
--- OUTSIDE RECORDS SUMMARY | ~2020-03-18 | XMS | Encounter Summary ---
Demographics + + + | Address | [address] | | | [place] [address] | + + + | Home Phone [...] [place] | | | | | [address] | | + + + + + Care Team Providers + +------+ + | Care Area Field Person Name | Role | Phone | + +------+ + | Aleshia Martinez PA-C | PCP | | + +------+ + Encounter Details +--------+ + + + + | Date | Type | Department | Care Team | Description | +--------+ + + + + | 09/05/ | Telephone | Digestive Health | Gildardo Downing, | | | 2017 | | Center at [facility] [address] | [address] | | | | | [address] | [place], [place] | | | | | Mailcode: Center | [address] | | | | | for Health and | [phone] | | | | | [facility], Building 2 | | | | | | [place], [place] | | | | | | [address] | | | | | | [phone] | | | +--------+ + + + [...]
--- OUTSIDE RECORDS SUMMARY | ~2020-03-18 | XMS | Encounter Summary ---
Demographics + + + | Address | [address] | | | [place] [address] | + + + | Home Phone [...] [place] | | | | | [address] | | + + + + + Care Team Providers + +------+ + | Care Slots Manager Name | Role | Phone | [...] | 2018 | Encounter | Center at [facility] 3485 | MD [address] | | | | | [address] | [facility], [place] | | | | | Mailcode: Center | [address] | | | | | for Health and | | | | | | [facility] 2 | | | | | | [place], [place] | | | | | | [address] | | | | | | | [...]
--- OUTSIDE RECORDS SUMMARY | ~2020-03-18 | XMS | Encounter Summary ---
Demographics + + + | Address | [address] | | | [place] [address] | + + + | Home Phone [...] [place] | | | | | [address] | | + + + + + Care Team Providers + +------+ + | Care Fiber Designer Name | Role | Phone | + +------+ + | Aleshia Martinez PA-C | PCP | | + +------+ + Encounter Details +--------+ + + + + | Date | Type | Department | Care Team | Description | +--------+ + + + + | 01/07/ | Telephone | Digestive Health | Yumiko Clarke, | | | 2017 | | Center at [facility] [address] | ACNP [address] | | | | | [address] | [place], [place] | | | | | Mailcode: Center | [address] | | | | | for Health and | [phone] | | | | | [facility] 2 | | | | | | [place], [place] | | | | | | [address] | | | | | | [phone] | | | +--------+ + + + [...]
--- OUTSIDE RECORDS SUMMARY | ~2020-03-18 | XMS | Encounter Summary ---
Demographics + + + | Address | [address] | | | [place] [address] | + + + | Home Phone [...] [place] | | | | | [address] | | + + + + + Care Team Providers + +------+ + | Care Maintenance Craftsman Name | Role | Phone | [...] 2018 | Visit | Center at [facility] [address]26 | ACNP [address] | sleeve gastrectomy | | | | [address] | Ave [place], [place] | (Primary Dx); | | | | Mailcode: Center | [address] | Vitamin D | | | | for Health and | [phone] | deficiency; Vitamin | | | | [facility] 2 | | B 12 deficiency; | | | | [place], [place] | | Morbid obesity (HCC) | | | | [address] | | | | | | | [...] encounter Patient Instructions Patient Instructions Emily Martinez [facility] - 09/07/2018 10:50 AM PST3. Take acid candy counter clerk fo r first 3 mos, then wean [...] cium, dairy or acid reducers) Calcium citrate 6213-3040 mg per day with vitamin D 1000 [...] stomach treated with diaza romeo. Scheduled with housekeeper supervisor following this appointment. Arrived on time, rooming [...] of fallopian tube Laparoscopic sleeve gastrectomy 08/31/[address] [facility] [address] Downing Social History Social History Marital [...] week 2. Labs:none today 3. Take acid candy counter clerk for first 3 mos, then wean off [...] in appointment: 30 Emily Martinez DNP, ACNP, RESIDENTIAL LAWN SPECIALIST Teller Supervisor Bariatric Surgery [facility] documented in this encounter Plan of [...]
--- OUTSIDE RECORDS SUMMARY | ~2020-03-18 | XMS | Encounter Summary ---
Demographics + + + | Address | [address] | | | [place] [address] | + + + | Home Phone [...] [place] | | | | | [address] | | + + + + + Care Team Providers + +------+ + | Care Mosaic Worker Name | Role | Phone | [...]
--- OUTSIDE RECORDS SUMMARY | ~2020-03-18 | XMS | Clinical Summary ---
Demographics + + + | Address | [address] | | | [place] [address] | + + + | Home Phone | | + + + | Preferred Language | Unknown | + + + | Marital Status | | + + + | Anabaptism Affiliation | CHR | + + + | Race | White | + + + | Ethnic Group | Not or | + + + Author + + + | Author | [facility] | + + + | Organization | [facility] | + + + | Address | Unknown | + + + | Phone | Unavailable | + + + Support + + + + + | Name | Relationship | Address | Phone | + + + + + | Stewart Corbett | ECON | [address] | | | | | [place] | | | | | [address] | | + + + + + Care Team Providers + +------+ + | Care Spine Surgeon Name | Role | Phone | + +------+ + | Aleshia Martinez PA-C | PCP | | + +------+ + Source Comments CANDY is fully live on both EpicCare Ambulatory and EpicCare InPatient.[facility]ly [facility] Allergies + + + + [...] | 12/27/ | MyChart | Surgery | [place], | RE: Signed note | | 2019 [...] - | | | | | | /[id number] | | [id number]: Qty: 2 on | | | | | | 245 | | 08/31/2018 by Gildardo Downing | | | | | | | | MD [place] at [facility] | | | | | [...] - | | | | | | /[id number] | | [id number]: Qty: 2 on | | | | | | 248 | | 08/31/2018 by Gildardo Downing | | | | | | | | MD Navin at [facility] | | | | | | | | LOC | | | | | | | + +------+--------+ +--------+--------+--------+ | Mesh Surgical Bard [id number] | | N/A: | BARD | | 04/21/ | [id number] | | Hernia Soft Lightweight Low | | Abdome | | | 2023 | 6 / | | Profile Strong Knit | | n | | | | /[id number] | | Construction Monofilament - | | | | | | 141 | | [id number]: Qty: 1 on | | | | | | | | 09/22/2019 by Shu, | | | | | | | | MD Bryson at [facility] | | | | | | [...] | 1984 | [phone] | [place] [address] | | | pawel | | | 9 (Home) | | + +--------+ +--------+ + + | Miguelangel Caballero | Worker | Self | 08/15/ | | [address] | | mi | s Comp | | 1984 | [phone] | [place] [address] | | | | | | 9 (Home) | | + +--------+ +--------+ + + | Miguelangel Caballero | Worker | Self | 08/15/ | | [address] | | mi | s Comp | | 1984 | [phone] | [place] [address] | | | | | | 9 (Home) | | + +--------+ +--------+ + + | Miguelangel Caballero | Worker | Self | 08/15/ | | [address] | | mi | s Comp | | 1984 | [phone] | [place] [address] | | | | | | 9 [...]
--- OUTSIDE RECORDS SUMMARY | ~2020-03-18 | XMS | Encounter Summary ---
Demographics + + + | Address | [address] | | | [place] [address] | + + + | Home Phone [...] [place] | | | | | [address] | | + + + + + Care Team Providers + +------+ + | Care Floor Polisher Name | Role | Phone | + [...] | 2020 | Encounter | Center at [facility] 0856 | MD Bryson [address] | to ask at my check | | | | [address] | [address] | up | | | | Mailcode: Center | [place], [place] | | | | | for Health and | [address] | | | | | [facility] 2 | [phone] | | | | | [place], [place] | | | | | | [address] | | | | | | [phone] | | | +--------+ + + + [...]
--- OUTSIDE RECORDS SUMMARY | ~2020-03-18 | XMS | Encounter Summary ---
Demographics + + + | Address | [address] | | | [place] [address] | + + + | Home Phone [...] [place] | | | | | [address] | | + + + + + Care Team Providers + +------+ + | Care Casing Finisher And Stuffer Name | Role | Phone | + [...] | | 2018 | | Center at [facility] 3485 | MD [address] | scheduling, possible | | | | [address] | [place], [place] | GERD symptoms) | | | | Mailcode: [place] | [address] | | | | | [facility] and | | | | | | [facility] 2 | | | | | | [place], [place] | | | | | | [address] | | | | | | | [...]
--- OUTSIDE RECORDS SUMMARY | ~2020-03-18 | XMS | Encounter Summary ---
Demographics + + + | Address | [address] | | | [place] [address] | + + + | Home Phone [...] [place] | | | | | [address] | | + + + + + Care Team Providers + +------+ + | Care Concession Supervisor Name | Role | Phone | + +------+ + | Aleshia Martinez PA-C | PCP | | + +------+ + Encounter Details +--------+------+ + + + | Date | Type | Department | Care Team | Description | +--------+------+ + + + | 01/06/ | Lab | Laboratory at [facility] | | Morbid obesity with | | 2017 | | [address] | | BMI of 40.0-44.9, | | | | [place], [place] | | adult (HCC); | | | | [address] | | Borderline diabetes; | | | | 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 See | | | | | | Compliance Statement B: | | | | | | School Places.[employer]/CSPerformed | | | | | | by [employer],[address] | | | | | | Yamil Winter, [facility] | | | | | | [address] | | | | | | [phone].School Places. | | | | | | [facility], Gerardo Esquivel MD, | | | [...] [facility] | [address] | [place], [place] | | | UN[facility] P[facility] - INTFC | | [address] | | + + + + + [...] | | | LABORATORY | | | [employer] | | | SERVICES, | | | [...] [facility] | [address] | [place] [address] | | | SERVICES, CORE | PARK [...] [facility] | [address] | [place] [address] | | | NILO, KUSH | PARK [...] [facility] | [address] | [place] [address] | | | SERVICES, CORE | PARK [...] | + + + + + | [facility] [employer] | [address] | [place] [address] | | | SERVICES, CORE | SHAHLA [...] + + | [facility] | [address] [facility] | [place] [address] | | | SERVICES, CORE | PARK [...] [facility] | [address] | [place] [address] | | | SERVICES, CORE | PARK [...] + + + + + | [facility] | [address] | [place] [address] | | | SERVICES, CORE | SHAHLA [...]
--- OUTSIDE RECORDS SUMMARY | ~2020-03-18 | XMS | Encounter Summary ---
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 Download the connie on your smartphone or visit the website [email or web address]. Click "join a meeting " enter the meeting number below at the scheduled time. Our monthly schedule is as follows: The Wednesday of every month at 5:30PM The Wednesday of every month at 1:00PM The meeting number is: [phone] Please note that this is an optional [...] [facility] Dr Downing Social History Socioeconomic History [...] file Gets together: Not on file Attends methodist service: Not on file Active member of [...] to plan and will call and/or send ENEFpro message if any issues. Start time 1445, end time 1510. I spent a total of 25 minutes face to face with this patie nt. Over 50% of visit was in counseling. JOSETTE Seaman Bariatric Surgery Nurse Practitioner [facility] | [address] | [place], [place] | [address] | documented in th is encounter Plan [...]
--- OUTSIDE RECORDS SUMMARY | ~2020-03-18 | XMS | Encounter Summary ---
Demographics + + + | Address | [address] | | | [place] [address] | + + + | Home Phone [...] [place] | | | | | [address] | | + + + + + Care Team Providers + +------+ + | Care Instructional Technology Teacher Name | Role | Phone | [...] Medical Records | | 2018 | | [place] at [facility] 8286 | | Review | | | | [address] | | | | | | Mailcode: [place] | | | | | | for Health and | | | | | | [facility], Building 2 | | | | | | [place], [place] | | | | | | [address] | | | | | | [phone] | | | +--------+ + + + [...]
--- OUTSIDE RECORDS SUMMARY | ~2020-03-18 | XMS | Encounter Summary ---
Demographics + + + | Address | [address] | | | [place] [address] | + + + | Home Phone [...] [place] | | | | | [address] | | + + + + + Care Team Providers + +------+ + | Care Producer Arborist Manager Name | Role | Phone | [...] 2017 | | Center at [facility] 8927 | [address] | | | | | [address] | [place], [place] | | | | | Mailcode: Center | [address] | | | | | for Health and | [phone] | | | | | [facility], Building 2 | | | | | | [place], [place] | | | | | | [address] | | | | | | [phone] | | | +--------+ + + + [...]
--- OUTSIDE RECORDS SUMMARY | ~2020-03-18 | XMS | Encounter Summary ---
Demographics + + + | Address | [address] | | | [place] [address] | + + + | Home Phone [...] [place] | | | | | [address] | | + + + + + Care Team Providers + +------+ + | Care Petroleum Refinery Laborer Name | Role | Phone | + [...] 2018 | Encounter | Center at [facility] 8738 | [facility] [address] | vitamin ok? | | | | [address] | Ave [place], [place] | | | | | Mailcode: Center | [address] | | | | | for Health and | [phone] | | | | | Healing, Building 2 | | | | | | [place], [place] | | | | | | [address] | | | | | | [phone] | | | +--------+ + + + [...]
--- OUTSIDE RECORDS SUMMARY | ~2020-03-18 | XMS | Encounter Summary ---
Demographics + + + | Address | [address] | | | [place] [address] | + + + | Home Phone [...] [place] | | | | | [address] | | + + + + + Care Team Providers + +------+ + | Care Obgyn Hospitalist Physician Name | Role | Phone | [...] 2017 | | Center at [facility] 7342 | [address] | | | | | [address] | [place], [place] | | | | | Mailcode: Center | [address] | | | | | for Health and | [phone] | | | | | [facility], Building 2 | | | | | | [place], [place] | | | | | | [address] | | | | | | [phone] | | | +--------+ + + + [...]
--- OUTSIDE RECORDS SUMMARY | ~2020-03-18 | XMS | Encounter Summary ---
Demographics + + + | Address | [address] | | | [place] [address] | + + + | Home Phone [...] [place] | | | | | [address] | | + + + + + Care Team Providers + +------+ + | Care Nougat Cutter Machine Name | Role | Phone | + [...] | SURGERY - | Rd | [address] | | | | | PLASTICS | [place], [place] | for Health | | | | | | [address] | and Healing, | | | | | | Phone: | Building 1, | | | | | | [phone] | 5th Floor | | | | | | Fax: | [place], [place] | | | | | | [phone] | [address] | | | | | | | Phone: | | | | | | | [phone] | +--------+--------+ + + + + Encounter Details +--------+---------+ + + + | Date | Type | Department | Care Team | Description | +--------+---------+ + + + | 11/30/ | Office | Digestive Health | Shu, | Postop check | | 2020 | Visit | [place] at [facility] 3485 | MD Yann [address] | (Primary Dx) | | | | [address] | [address] | | | | | Mailcode: Center | [place], [place] | | | | | for Health and | [address] | | | | | Healing, Building 2 | [phone] | | | | | [place], [place] | | | | | | [address] | | | | | | [phone] | | | +--------+---------+ + + + [...] causes discomfort or swit ch to a rn complex care weight. I will order a referral to [...] laparotomy. 2. Excision of prior hernia mesh u5uwkkzaax pieces.2.5 hours spent excising mesh includ ing [...] ed by Gilbert Reed. YANN IRELAND MD [facility] 34[address] [facility] Mailcode: [place] [address] documented in thi s encounter Plan of Treatment Not on filedocumented as of this encounter Visit Diagnoses + + | Diagnosis | + + | Postop check - Primary Follow-up examination, following unspecified surgery | + + documented in this encounter"
--- OUTSIDE RECORDS SUMMARY | ~2020-03-18 | XMS | Encounter Summary ---
Demographics + + + | Address | [address] | | | [place] [address] | + + + | Home Phone [...] [place] | | | | | [address] | | + + + + + Care Team Providers + +------+ + | Care Benefits Coordinator Name | Role | Phone | [...] Gupta | | | | | [facility] | [address] | | | | | Hospital Admitting | [place], [place] | | | | | Desk Located on the | [address] | | | | | 9th floor | [phone] | | | | | [place], [place] | | | | | | [address] | | | +--------+ + + + [...]
--- OUTSIDE RECORDS SUMMARY | ~2020-03-18 | XMS | Encounter Summary ---
Demographics + + + | Address | [address] | | | [place] [address] | + + + | Home Phone [...] [place] | | | | | [address] | | + + + + + Care Team Providers + +------+ + | Care Nurse Reviewer Name | Role | Phone | + [...] Gupta | | | | | [facility] | [address] | | | | | Hospital Admitting | [place], [place] | | | | | Desk Located on the | [address] | | | | | 9th floor | [phone] | | | | | [place], [place] | | | | | | [address] | | | +--------+ + + + [...]
--- OUTSIDE RECORDS SUMMARY | ~2020-03-18 | XMS | Encounter Summary ---
Demographics + + + | Address | [address] | | | [place] [address] | + + + | Home Phone [...] [place] | | | | | [address] | | + + + + + Care Team Providers + +------+ + | Care Leasing Assistant Name | Role | Phone | [...] | | | | | 40.0-44.9, | [place], [place] | [facility] Center | | | | | adult (HCC) | [address] | for Health | | | | | Borderline | Phone: | and Healing, | | | | | diabetes | [phone] | Building 1, | | | | | Essential | Fax: | 15th Floor | | | | | hypertension | [phone] | [place], [place] | | | | | Mild | | [address] | | | | | intermittent | | Phone: | | | | | asthma | | [phone] | | | | | without | | Fax: | | | | | complication | | [phone] | | | | | Anxiety | [...] | [facility] | | | with TIMBER MANAGEMENT ASSISTANT | | obesity | Ganesh Holden MD | [facility] [address] | | | | | (HCC) | [address] | | | | | Procedures | Guillermo Regan | Mailcode: | | | | | CONSULT TO | Shahla Maldonado | [place] [facility] | | | | | BARIATRIC | [place], [place] | [facility] and | | | | | SURGERY | [address] | Healing, | | | | | | | Building 2 | | | | | | | [place], [place] | | | | | | | [address] | | | | | | | Phone: | | | | | | | [phone] | | | | | | | Fax: | | | | | | | [phone] | + + + + + + [...] | | [address] | Ave [place], [place] | adult (HCC) (Primary | | | | Mailcode: Center | [address] | Dx); Borderline | | | | for Health and | [phone] | diabetes; Essential | | | | Healing, Building 2 | | hypertension; Mild | | | | [place], [place] | | intermittent asthma | | | | [address] | | without | | | | [phone] | | complication; | | | | [...] diabetes 2. HTN takes atenolol, BP elevated jyxez=750/95 3. Ventral hernia with MESH 4. Hx [...] to your private appointme nt with the mule rider. These classes will be scheduled apporoximately 1 [...] Psychological Evaluation: If your referral is at [facility], The Pain Management Office will call [...] then schedule with the surgeon. Yumiko APPIAH FLAME HARDENING MACHINE SETTER Bariatric Surgery Nurse Practitioner [facility] | [address] | [place], [place] | [address] | Potential Contraindications to Bariatric Surgery Age [...] other providers does not guarantee that the [facility] Bariatric Surger y program will deem you a surgical candidate. documented in this encounter Progress Notes Yumiko Clarke ACNP - 01/06/2018 2:05 PM PDTFormatting of this note might be different fr om the original. BARIATRIC INITIAL VISIT Provider: Yumiko APPIAH FLAME HARDENING MACHINE SETTER Referring Provider: Aleshia Martinez PA-C Reason for [...] diet attempts at age 18 Personally initiated diets:PathJumpK Programmatic diets: PathJumpK Physician Monitored diet: UNK Use of Redux or Phen/fen: yes, phentermine but doesn't like side effects Transthoracic ECHO: no Mandaeism or cultural reason you would refuse blood [...] of lower extremity edema, hyperlipidemia. No CHF, NH, ischemic heart disease, DVT/PE, or pulmonary hypertension. [...] diabetes 2. HTN takes atenolol, BP elevated uotri=509/95 3. Ventral hernia with MESH 4. Hx [...] to your private appointme nt with the mule rider. These classes will be scheduled apporoximately 1 [...] Psychological Evaluation: If your referral is at [facility], The Pain Management Office will call [...] with the surgeon. Yumiko Clarke DNP ACNP FLAME HARDENING MACHINE SETTER Bariatric Surgery Nurse Practitioner [facility] | [address] | [place], [place] | [address] | Potential Contraindications to Bariatric Surgery Age [...] other providers does not guarantee that the [facility] Bariatric Surger y program will deem [...] | + + + + + | [facility] | [address] | [place] [address] | | | KUSH CORCORAN | SHAHLA [...] | [facility] | | considered for monitoring terminal carman glycemic control in patients with: | LABORATORY [...] | + + + + + | [facility] | [address] | [place] [address] | | | SERVICES, SPECIAL | SHAHLA [...] | | | | | determined by [employer] | | | | | | Laboratories. See | | | | | | Compliance Statement B: | | | | | | [employer]vel[employer]/CSPerformed | | | | | | by [employer],[address] | | | | | | [facility] | | | | | | [address] | | | | | | [phone].Abakan. | | | | | | [place] [employer], Gerardo Esquivel MD, | | | | [...] [facility] | [address] | [place], [place] | | | UN[facility] INT[facility] | | [address] | | + + + + + [...] | | | LABORATORY | | | MALDIVIAN | | | SERVICES, | | | [...] [facility] | [address] | [place] [address] | | | SERVICES, CORE | PARK [...] [facility] | [address] | [place] [address] | | | SERVICES, CORE | PARK [...] | + + + + + | [facility] | [address] | [place] [address] | | | SERVICES, CORE | PARK [...] and | 50 - 200 ng/mL | [facility] | | | | Female >18 years: [...] | + + + + + | [employer] [facility] | [address] | [place] [address] | | | KUSH CORCORAN | SHAHLA [...] | + + + + + | [facility] | [address] | [place] [address] | | | SERVICES, CORE | SHAHLA [...] | + + + + + | [facility] | [address] | [place] [address] | | | SERVICES, CORE | SHAHLA [...] | + + + + + | [facility] | [address] | [place] [address] | | | SERVICES, CORE | SHAHLA [...] + + | [facility] | [address] | [place], [place] | | | CARDIOLOGY | [address] | [address] | | + + + + + [...]
--- OUTSIDE RECORDS SUMMARY | ~2020-03-18 | XMS | Encounter Summary ---
Demographics + + + | Address | [address] | | | [place] [address] | + + + | Home Phone [...] [place] | | | | | [address] | | + + + + + Care Team Providers + +------+ + | Care Skin Fitter Name | Role | Phone | [...] job | | 2019 | Encounter | [place] at [facility] 0241 | MD Bryson [address] | needs a note / | | | | [address] | [address] | questions from mi | | | | Mailcode: Center | [place], [place] | | | | | for Health and | [address] | | | | | [facility] 2 | [phone] | | | | | [place], [place] | | | | | | [address] | | | | | | [phone] | | | +--------+ + + + [...]
--- OUTSIDE RECORDS SUMMARY | ~2020-03-18 | XMS | Encounter Summary ---
Demographics + + + | Address | [address] | | | [place] [address] | + + + | Home Phone [...] [place] | | | | | [address] | | + + + + + Care Team Providers + +------+ + | Care Punch Press Operator Name | Role | Phone [...] | | Center at [facility] 3485 | MD [address] | sided near | | | | [address] | [place], [place] | incision) | | | | Mailcode: Center | [address] | | | | | for Health and | [phone] | | | | | [facility] 2 | | | | | | [place], [place] | | | | | | [address] | | | | | | [phone] | | | +--------+ + + + [...]
--- OUTSIDE RECORDS SUMMARY | ~2020-03-18 | XMS | Encounter Summary ---
Demographics + + + | Address | [address] | | | [place] [address] | + + + | Home Phone [...] [place] | | | | | [address] | | + + + + + Care Team Providers + +------+ + | Care Analytics Manager Name | Role | Phone | [...] with EGD | | | | Rd [facility] | [place], [place] | | | | | Hospital Admitting | [address] | | | | | Desk Located on the | [phone] | | | | | 9th floor | | | | | | [place], [place] | | | | | | [address] | | | +--------+---------+ + + + [...] from the original. [facility] RED SURGERY INPATIENT DISCHARGE SUMMARY Author: GAUTAM [...] 1 week and her surgeon, Dr. Gildardo Downign MD in approx imately 4 weeks. Medications: [...] or Kefir, [place] Yogurt, and Chioban i Mohawk Yogurt are common brands with beneficial probiotics. [...] are available over the counter at most [facility] [employer] stores. Nausea/Vomiting/Difficulty Swallowing Nausea/Vomiting/Difficulty swallowing: Could be [...] hours per your instructions. Some medications, like [place], have Tylenol in it. Make sure you [...] (PCP) as this clinic does not provide [facility] chronic pain management services. When to [...] hours by calling the surgery office at [phone]. - After hours, weekends and holidays, you may call the hospital dredge pipe operator at [phone] an d have the regional operations director Red Surgery Team paged. Destination Home Condition [...] Acute Care Why: follow up with bariatric FOREST BIOMETRICS PROFESSOR Contact information [address] [address] Future Appointments Provider Department Dept Phone Center 09/07/2018 10:00 AM Chetna Alves [facility] 6th Floor [phone] KATIA D AND NUT 09/07/2018 10:50 AM Emily Martinez [facility] 6th Floor [phone] D ig Health 09/29/2018 10:30 AM Tea Reece [facility] 6th Floor [phone] F OOD AND NUT 09/29/2018 11:20 AM Gildardo Downing Digestive [facility] 6th Floor [phone] Di g Health 11/25/2018 10:00 AM Tea Reece [facility] 6th Floor [phone] FO OD AND NUT 11/25/2018 10:50 AM Shanon Etienne [facility] 6th Floor [phone] Dig [facility] Discharging Physician: GAUTAM Leblanc Attending Physician: Gildardo Downing MD [facility] Red Surgery Pager# [phone] 10:42 AM 09/02/2018 documented in th is [...] Notes Vel Severino - 09/01/2018 2:43 PM [facility] Admission Date: 08/31/2018 [...] if this helps. Gildardo Downing MD, FACS, [facility] Division of Bariatric Surgery [facility] | [address] | [place], [place] | [address] | Ludwin Tellez MD - 08/31/2018 8:54 [...] Ludwin Tellez MD General Surgery, PGY1 Pager: [phone] documented in this en counter Plan of [...] ve | 12:25 PM | ([facility]) | | | | Surgic | [...] DEPT OF | [address] | [place], [place] | | | CARDIOLOGY | [address] | [address] | | + + + + + [...] ABDI | [address] | [place], [place] | | | CHARITO POINT OF CARE | [address] | [address] | | | TESTS | | | [...] MARQUAM | [address] | [place], [place] | | | HILL, POINT OF CARE | [address] | [address] | | | TESTS | | | [...] SURGEON: Gildardo Downing MD. | | | FLATWORK ASSEMBLER: Jamie Gonzales MD R6. ANESTHESIA: Ke Strong [...] | | | Gildardo Downing MD, FACS, [facility] Bariatric Surgery | | | [...] SURGEON: Gildardo Downing MD. | | | FLATWORK ASSEMBLER: Jamie Gonzales MD R6. ANESTHESIA: Ke Strong [...] | | | Gildardo Downing MD, FACS, [facility] Bariatric Surgery | | | [...] MARQUAM | [address] | [place], [place] | | | CHARITO POINT OF CARE | [address] | [address] | | | TESTS | | | [...]
--- OUTSIDE RECORDS SUMMARY | ~2020-03-18 | XMS | Encounter Summary ---
Demographics + + + | Address | [address] | | | [place] [address] | + + + | Home Phone [...] [place] | | | | | [address] | | + + + + + Care Team Providers + +------+ + | Care Boot And Saddle Repair Person Name | Role | Phone | [...] | 2018 | Encounter | Center at [facility] [address] | | | | | | [address] | | | | | | Mailcode: Center | | | | | | for Health and | | | | | | Healing, Building 2 | | | | | | [place], [place] | | | | | | [address] | | | | | | [phone] | | | +--------+ + + + [...]
--- OUTSIDE RECORDS SUMMARY | ~2020-03-18 | XMS | Encounter Summary ---
Demographics + + + | Address | [address] | | | [place] [address] | + + + | Home Phone [...] [place] | | | | | [address] | | + + + + + Care Team Providers + +------+ + | Care Physical Education Aide Name | Role | Phone | + +------+ + | Aleshia Martinez PA-C | PCP | | + +------+ + Encounter Details +--------+---------+ + + + | Date | Type | Department | Care Team | Description | +--------+---------+ + + + | 05/30/ | Office | Digestive Health | | Morbid obesity (HCC) | | 2018 | Visit | Center at [facility] [address] | | (Primary Dx) | | | | [address] | | | | | | Mailcode: Center | | | | | | for Health and | | | | | | Healing, Building [address] | | | | | | [place], [place] | | | | | | [address] | | | | | | [phone] | | | +--------+---------+ + + + [...] of Class: 1105 until 1225 (80 minutes [id number] with patient) Teaching Methods: PowerPoint and verbal [...] a journal with fluid/protein d. Transportation 7. [place] [facility] Surgery 8. Surgical [...]
--- OUTSIDE RECORDS SUMMARY | ~2020-03-18 | XMS | Encounter Summary ---
Demographics + + + | Address | [address] | | | [place] [address] | + + + | Home Phone [...] [place] | | | | | [address] | | + + + + + Care Team Providers + +------+ + | Care Virtual Reality Specialist Name | Role | Phone | + +------+ + | Aleshia Martinez PA-C | PCP | | + +------+ + Encounter Details +--------+ + + + + | Date | Type | Department | Care Team | Description | +--------+ + + + + | 10/14/ | MyChart | Digestive Health | Joseph Ireland | | 2019 | Encounter | Center at [facility] [address] | [address] | | | | | [address] | [facility] | | | | | Mailcode: Center | [place], [place] | | | | | [facility] Health and | [address] | | | | | [facility] | [phone] | | | | | [place], [place] | | | | | | [address] | | | | | | [phone] | | | +--------+ + + + [...]
--- OUTSIDE RECORDS SUMMARY | ~2020-03-18 | XMS | Encounter Summary ---
Demographics + + + | Address | [address] | | | [place] [address] | + + + | Home Phone [...] [place] | | | | | [address] | | + + + + + Care Team Providers + +------+ + | Care Bill Of Lading Clerk Name | Role | Phone | [...] 2018 | Encounter | Center at [facility] [address] | [address] | | | | | [address] | Ave [place], [place] | | | | | Mailcode: Center | [address] | | | | | for Health and | [phone] | | | | | Healing, Building 2 | | | | | | [place], [place] | | | | | | [address] | | | | | | [phone] | | | +--------+ + + + [...]
--- OUTSIDE RECORDS SUMMARY | ~2020-03-18 | XMS | Encounter Summary ---
Demographics + + + | Address | [address] | | | [place] [address] | + + + | Home Phone [...] [place] | | | | | [address] | | + + + + + Care Team Providers + +------+ + | Care Equipment Coordinator Name | Role | Phone | [...] 2017 | | Center at [facility] [address] | AC[address] | | | | | [address] | Ave [place], [place] | | | | | Mailcode: Center | [address] | | | | | for Health and | [phone] | | | | | [facility] 2 | | | | | | [place], [place] | | | | | | [address] | | | | | | [phone] | | | +--------+ + + + [...]
--- OUTSIDE RECORDS SUMMARY | ~2020-03-18 | XMS | Encounter Summary ---
Demographics + + + | Address | [address] | | | [place] [address] | + + + | Home Phone [...] [place] | | | | | [address] | | + + + + + Care Team Providers + +------+ + | Care Navy Airspace Officer Name | Role | Phone | [...] | | | | | ([facility]) | [address] | Mailcode: | | | | | Procedures | Monica | [address] | | | | | PHYSICAL | [place] | for Health | | | | | THERAPY | [address] | and Healing, | | | | | REFERRAL | Phone: | Building 1, | | | | | | | [address] Floor | | | | | | Fax: | [place], [place] | | | | | | [phone] | [address] | | | | | | | Phone: | | | | | | | [phone] | | | | | | | Fax: | | | | | | | [phone] | +--------+--------+ + + + + Encounter Details +--------+---------+ + + + | Date | Type | Department | Care Team | Description | +--------+---------+ + + + | 01/06/ | Office | [facility] | Nesha Hannon, PT | Morbid obesity with | | 2018 | Visit | Therapy Services at | [address] [facility] | BMI of 40.0-44.9, | | | | [facility] | [address] [place], | adult (HCC) (Primary | | | | [address] | [place] [address] | Dx); Essential | | | | Mailcode: CH3P | [phone] | hypertension; | | | | [facility] | | Ventral hernia with | | | | and Healing, | | obstruction and | | | | [address] | | without gangrene; | | | | Floor [place], [place] | | Physical | | | | [address] | | deconditioning | | | | [phone] | | | +--------+---------+ + + + [...] Product Type: Workers Com p / Non-Medicare [facility] PHYSICAL THERAPY EVALUATION Past [...] pain is not a significant clinical problem [facility] PHYSICAL THERAPY EVALUATION History [...] work due to pain/injury. lives with [facility]. Living situation/environment is limiting function: no Equipment [...] Moderate - Moderate complexity Complexity: Moderate - [address]1974 The patient requires services that can be [...] status. NESHA HANNON PT [facility] AT [facility] 1ST FLOOR Scheduled Appointment time: 1:00 [...] 1 Referral information Authorizing Provider: MARY ADAMS [[id number]] Onset/Referral Date: 10/27/17 Primary/Referral Diagnosis: E66.01, Z68.41 Morbid obesity with BMI of 40.0-44.9, adult (H CC) I10 Essential hypertension K43.6 Ventral hernia with obstruction and without gangrene R53.81 Physical deconditioning Start of care: 01/06/2018 Service period from: 01/06/2018 to: - Next progress report 02/05/2018 Insurance: Payor: WORKERS COMP OTHER / Plan: WORKERS COMP OTHER / Product Type: Elliptic p / G-code:- code not needed. Number [...] + +--------+ + + + | [place] THERAPEUTIC | Routin | 01/10/2018 | Morbid [...]
--- OUTSIDE RECORDS SUMMARY | ~2020-03-18 | XMS | Encounter Summary ---
Demographics + + + | Address | [address] | | | [place] [address] | + + + | Home Phone [...] [place] | | | | | [address] | | + + + + + Care Team Providers + +------+ + | Care Technical Services Coordinator Name | Role | Phone | [...] Pharmacy | | | | | | [address] | | | | | | [place] | | | | | | [address] | | | | | | [phone] | | | +--------+ + + + [...]
--- OUTSIDE RECORDS SUMMARY | ~2020-03-18 | XMS | Encounter Summary ---
Demographics + + + | Address | [address] | | | [place] [address] | + + + | Home Phone [...] [place] | | | | | [address] | | + + + + + Care Team Providers + +------+ + | Care Vessel Scrapper Helper Name | Role | Phone | [...] the | | 2019 | Encounter | [place] at [facility] [address] | [address] | hernia | | | | [address] | [address] | | | | | Mailcode: Center | [place], [place] | | | | | for Health and | [address] | | | | | [facility], Building 2 | [phone] | | | | | [place], [place] | | | | | | [address] | | | | | | [phone] | | | +--------+ + + + [...]
--- OUTSIDE RECORDS SUMMARY | ~2020-03-18 | XMS | Encounter Summary ---
Demographics + + + | Address | [address] | | | [place] [address] | + + + | Home Phone [...] [place] | | | | | [address] | | + + + + + Care Team Providers + +------+ + | Care Melter Clerk Name | Role | Phone | [...] | Encounter | Center at [facility] [address] | | insurance plan for | | | | [address] | | surgery | | | | Mailcode: Center | | | | | | for Health and | | | | | | Healing, Building [address] | | | | | | [place], [place] | | | | | | [address] | | | | | | [phone] | | | +--------+ + + + [...]
--- OUTSIDE RECORDS SUMMARY | ~2020-03-18 | XMS | Encounter Summary ---
Demographics + + + | Address | [address] | | | [place] [address] | + + + | Home Phone [...] [place] | | | | | [address] | | + + + + + Care Team Providers + +------+ + | Care Mobile Paint Specialist Name | Role | Phone | [...] | Center at [facility] [address] | MD [address] | | | | | [address] | [place], [place] | | | | | Mailcode: Center | [address] | | | | | for Health and | | | | | | [facility] 2 | | | | | | [place], [place] | | | | | | [phone] | | | | | | | [...]
--- OUTSIDE RECORDS SUMMARY | 2020-03-18 13:26 | XMS ---
PreManage Notification: PATTI FREIRE Security Flat Knitter Events 1 event(s) in the past 18 months Most recent security events: Elopement at [facility] 09/27/2019 12:02 - Other Details: PATIENT LEFT AMA CRITERIA MET - Group Notification - PDMP CARE PROVIDERS SOURAV PAINTER Physician 01/30/2019-Current PHONE: [phone] Mathieu has no Care Guidelines for this patient. Iliana VISIT COUNT (12 MO.) 3 [facility] TOTAL 3 NOTE: Visits indicate total known visits. ED/UCC VISIT TRACKING (12 MO.) 03/18/2020 13:25 [facility] [place] TYPE: Emergency COMPLAINT: - BACK PAIN NON INJURY 09/27/2019 12:02 [facility] [place] TYPE: Emergency COMPLAINT: - SOB - AMA DIAGNOSES: - Shortness of breath 09/13/2019 12:51 [facility] [place] TYPE: Emergency COMPLAINT: - ABD PAIN/HERNIA DIAGNOSES: - Latex allergy status - Radiographic dye allergy status - Other jail (current) drug therapy - Other nonmedicinal substance allergy status - Unspecified abdominal pain - Allergy status to other drugs, medicaments and biological sub - Overexertion from strenuous movement or load, initial encount - Essential (primary) hypertension - Strain of muscle, fascia and tendon of abdomen, initial encou INPATIENT VISIT TRACKING (12 MO.) 09/22/2019 09:58 [facility] TYPE: Surgery DIAGNOSES: 85026. PARTIALLY INCARCERATED INCISIONAL HERNIA 03677. Other and unspecified ventral hernia with obstruction, withou [email or web address]
[2020-03-18] MEDS ORDERED: METHOCARBAMOL750 MG PO (13:53)
[2020-03-18] MEDS ORDERED: PROMETHAZINE HC25 M1 PO (13:55)
[2020-03-18] MEDS ORDERED: NORCO 5-325 TA1 EACH PO (14:14)
[2020-03-18] MEDS ORDERED: PREDNISONE20 MG PO (14:14)
== END 2020-03-18 14:38 | disposition home or self-care (01) ==
LOC: ED 13:24
DX: M54.5 Low back pain (principal); I10 Essential (primary) hypertension; Z87.891 Personal history of nicotine dependence; Z91.041 Radiographic dye allergy status; Z91.040 Latex allergy status; Z79.899 Other long term (current) drug therapy
CPT/HCPCS: 96372; 99283; J1100; J1885

== ENCOUNTER 2020-04-27 14:39 | Emergency (ER) | payer BC ==
[~2020-04-27] VITALS: Ht 170.2 cm; Wt 77.1 kg
--- OUTSIDE RECORDS SUMMARY | ~2020-04-27 | XMS | Encounter Summary ---
Demographics + + + | Address | [address] | | | [place] [address] | + + + | Home Phone | | + + + | Preferred Language | Unknown | + + + | Marital Status | | + + + | Oriental Orthodox Affiliation | CHR | + + + | Race | White | + + + | Ethnic Group | Not or | + + + Author + + + | Author | [facility] | + + + | Organization | [facility] | + + + | Address | Unknown | + + + | Phone | Unavailable | + + + Support + + + + + | Name | Relationship | Address | Phone | + + + + + | Stewart Corbett | ECON | [address] | | | | | [place] | | | | | [address] | | + + + + + Care Team Providers + +------+ + | Care School Bus Dispatcher Name | Role | Phone | + +------+ + | No Pcp Per Patient | PCP | Unavailable | + +------+ + Encounter Details +--------+ + + + + | Date | Type | Department | Care Team | Description | +--------+ + + + + | 09/21/ | Abstract | Digestive Health | Clinic, Surgery | | | 2016 | | [place] at [facility] [address] | | | | | | [address] | | | | | | Mailcode: [place] | | | | | | [facility] Health and | | | | | | Healing, Building [address] | | | | | | [place], [place] | | | | | | [address] | | | | | | [phone] | | | +--------+ + + + [...] + +---------+ + | Alcohol Use | Drinks/Week | oz/Week | Comments | + + +---------+ + | No | | | | + + +---------+ + + + + | Sex Assigned at | Date Recorded | | | | + + + | Not on file | | + + + + + + + | Job Start Date | Occupation | Industry | + + + + | Not on file | Not on file | Not on file | + + + + + + + + | Travel History | Travel Start | Travel End | + + + + + + | No recent travel history available. | + + documented as of this encounter Plan of Treatment Not on filedocumented as of this encounter Visit Diagnoses Not on filedocumented in this encounter"
--- OUTSIDE RECORDS SUMMARY | ~2020-04-27 | XMS | Encounter Summary ---
Demographics + + + | Address | [address] | | | [place] [address] | + + + | Home Phone | | + + + | Preferred Language | Unknown | + + + | Marital Status | | + + + | Yarsanism Affiliation | CHR | + + + | Race | White | + + + | Ethnic Group | Not or | + + + Author + + + | Author | [facility] | + + + | Organization | [facility] | + + + | Address | Unknown | + + + | Phone | Unavailable | + + + Support + + + + + | Name | Relationship | Address | Phone | + + + + + | Stewart Corbett | ECON | [address] | | | | | [place] | | | | | [address] | | + + + + + Care Team Providers + +------+ + | Care Medical Record Consultant Name | Role | Phone | + +------+ + | Aleshia Martinez PA-C | PCP | | + +------+ + Reason for Visit + + + | Reason | Comments | + + + | Medical Records | | | Review | | + + + Encounter Details +--------+ + + + + | Date | Type | Department | Care Team | Description | +--------+ + + + + | 04/28/ | Abstract | Digestive Health | Clinic, Surgery | Medical Records | | 2018 | | [place] at [facility] [address] | | Review | | | | [address] | | | | | | Mailcode: [place] | | | | | | for Health and | | | | | | [facility], Building [address] | | | | | | [place], [place] | | | | | | [address] | | | | | | [phone] | | | +--------+ + + + [...]
--- OUTSIDE RECORDS SUMMARY | ~2020-04-27 | XMS | Encounter Summary ---
Demographics + + + | Address | [address] | | | [place] [address] | + + + | Home Phone | | + + + | Preferred Language | Unknown | + + + | Marital Status | | + + + | Judaism Affiliation | CHR | + + + | Race | White | + + + | Ethnic Group | Not or | + + + Author + + + | Author | [facility] | + + + | Organization | [facility] | + + + | Address | Unknown | + + + | Phone | Unavailable | + + + Support + + + + + | Name | Relationship | Address | Phone | + + + + + | Stewart Corbett | ECON | [address] | | | | | [place] | | | | | [address] | | + + + + + Care Team Providers + +------+ + | Care Cement Conveyor Operator Name | Role | Phone | + +------+ + | No Pcp Per Patient | PCP | Unavailable | + +------+ + Reason for Visit + + + | Reason | Comments | + + + | Pre-op evaluation | | + + + Encounter Details +--------+ + + + + | Date | Type | Department | Care Team | Description | +--------+ + + + + | 08/29/ | Telephone-S | Preoperative | | Pre-op evaluation | | 2019 | cheduled | Medicine Clinic at | | | | | | [facility] | | | | | | [address] | | | | | | Mail Code: [id number] | | | | | [facility] | | | | | | and Healing, | | | | | | [address] | | | | | | [place], [place] | | | | | | [address] | | | | | | [phone] | | | +--------+ + + + + Anesthesia Record + + + + + | Procedure Name | Responsible | Anesthesia Start | Anesthesia Stop Time | | | Anesthesiologist | Time | | + + + + + | RECURRENT VENTRAL | Rafi Askew MD | 09/22/19 1158 | 09/22/19 9305 | | HERNIA REPAIR AND | | | | | EXCISION OF MESH | | | | | (N/A Abdomen) | | | | + + + + + +----+---+ + + | Da | T | Event | Comment | | te | i | | | | | m | | | | | e | | | +----+---+ + + | 11 | 1 | An Start | | | /2 | 1 | | | | 9/ | 5 | | | | 20 | 8 | | | | 19 | | | | +----+---+ + + | | 1 | Eq Check | Anesthesia machine checked Equipment verified | | | 2 | | | | | 0 | | | | | 0 | | | +----+---+ + + | | 1 | Preprocedur | Pt ID confirmed, informed consent obtained, insertion site | | | 2 | e Checklist | marked, equipment available | | | 0 | | | | | 0 | | | +----+---+ + + | | 1 | An Start | | | | 2 | Data | | | | 0 | | | | | 1 | | | +----+---+ + + | | 1 | ETT | | | | 2 | | | | | 1 | | | | | 2 | | | +----+---+ + + | | 1 | Ready | | | | 2 | | | | | 1 | | | | | 3 | | | +----+---+ + + | | 1 | Timeout | | | | 2 | | | | | 1 | | | | | 3 | | | +----+---+ + + | | 1 | Abx | | | | 2 | Administere | | | | 2 | d | | | | 8 | | | +----+---+ + + | | 1 | Timeout | | | | 2 | | | | | 2 | | | | | 8 | | | +----+---+ + + | | 1 | Incision | | | | 2 | | | | | 3 | | | | | 1 | | | +----+---+ + + | | 1 | Surgery end | | | | 5 | | | | | 4 | | | | | 4 | | | +----+---+ + + | | 1 | An Extubate | Neuromuscular function Intact. Pharynx suctioned. Patient obeys | | | 5 | | commands. Adequate pulmonary mechanics. | | | 4 | | | | | 4 | | | +----+---+ + + | | 1 | an stop | | | | 5 | data | | | | 4 | | | | | 9 | | | +----+---+ + + | | 1 | PACU Rpt | | | | 5 | Given | | | | 4 | | | | | 9 | | | +----+---+ + + | | 1 | Anesthesia | | | | 5 | End | | | | 5 | | | | | 5 | | | +----+---+ + + | | 1 | Post-Op | | | | 6 | Page | | | | 4 | | | | | 5 | | | +----+---+ + + +------+ | Meds | +------+ + + + No medications | on file. | + + + + + | No agents on file. | + + + + | No [...] +--------+ + + + | Periph | 09/22/19; 1050; Left; Hand; 20 g; | 09/22/19 1050 by | | | eral | Lidocaine; Positive | Patricio Wynn RN | | | IV | | | | +--------+ + + + | Incisi | 09/22/19; 1229; Crispin Ireland, | 09/22/19 1229 by | | | on | MD; abdomen | Sukhwinder Sherwood RN | | +--------+ + + + | Drain | 09/22/19; 1459; Tito Ireland; | 09/22/19 1459 by | | | | Shadi (19 fr); abdomen | Sukhwinder Sherwood RN | | +--------+ + + + | Urethr | 09/22/19; 1148; Antoni Sherwood RN; | 09/22/19 1148 by | 09/24/19 0825 by | | al | Lizz; 16 Fr.; 10 mL; 09/24/19; | Sukhwinder Sherwood RN | Trista Duran, | | Adileneet | 0825 | | RN | | er | | | | +--------+ + + + | ETT | 09/22/19; 1212 (created via | 09/22/19 1212 by | 09/22/19 154 by | | | procedure documentation); 7; | Austen Wilkinson, | Austen Wilkinson, | | | Oral; Cuffed; 09/22/19; 1544 | AUTO HEATER MECHANIC | AUTO HEATER MECHANIC | +--------+ + + + documented in [...] + + documented as of this encounter Patient Instructions Patient Instructions Lety Dillon RN - 08/28/2019 4:30 PM PST PREOPERATIVE INSTRUCTIONS Pre-surgery "homework" If you have not already done so, please consider getting your flu vaccine before surger y. This is safe and effective before a surgery and recovery. Unless otherwise instructed by your surgeon, stay active between now and surgery, even striving to increase your activity levels if you can (ex. taking at least one walk daily, ev en around the block). This can help speed your surgery recovery. If you have a CPAP/BiPAP machine (or other device for Sleep Apnea treatment like a mout h guard), please bring it with you on the day of your surgery. Deciding to or needing to schedule a surgery is often an important moment that can help you pursue quitting smoking life-long. We ideally recommend quitting smoking for at least 4 weeks before surgery, though we recognize that your appointment today is likely less than 4 weeks until surgery. Any smoking quitting is worth it before surgery, though speak to your surgeon about any specific goals set for how long you will be off cigarettes before your hernandez rgery. Quitting smoking can help you decrease the chance of complications from your surgery and improve healing. Multiple tobacco quitting aids exist, including nicotine patches and gum. The [place] Quit Line can also be reached at 1.800.QUIT.NOW ( ) or online at www.quitnow.net/[place]. Surgery check-in location: [facility] Surgery Check in Time: you will receive a call 1-3 business days before your surgery confi rming your exact arrival/check-in time for your surgery day. We know that planning for surg lyndsay can be stressful and involve a lot of family/friend/transportation coordination as well as hotel arrangements. The Preoperative Medicine Clinic does not have access to check in [facility], and we encourage you to contact your surgeon's office for any assistance planning aroun d a tentative arrival time. Empty stomach before surgery On the day BEFORE your surgery, drink plenty of fluids and stay well hydrated NOTHING to eat or drink after midnight the night before surgery. This includes water, coffee, candy, mints, gum. Medications Instructions On the evening before your surgery, take ALL your usual evening medications On the morning of surgery TAKE the following medications with a sip of water: none On the morning of surgery DO NOT TAKE the following medications: none Other medications not specifically mentioned are at your discretion as to taking or not taking on the morning of surgery. ALBUTEROL INHL PROBIOTIC WITH PREBIOTIC ORAL CETIRIZINE 10 MG TABLET CHOLECALCIFEROL (VITAMIN D3) 5,000 UNIT TABLET DESOGESTREL 0.15 MG-ETHINYL ESTRADIOL 0.03 MG TABLET DIAZEPAM 2 MG TABLET ERGOCALCIFEROL (VITAMIN D2) 50,000 UNIT CAPSULE FLUTICASONE PROPIONATE 50 MCG/ACTUATION NASAL SPRAY,SUSPENSION HYOSCYAMINE SULFATE 0.125 MG TABLET IBUPROFEN 200 MG CAPSULE METHOCARBAMOL 500 MG TABLET MULTIVITAMIN TABLET (THERAPEUTIC) NYSTATIN 100,000 UNIT/GRAM TOPICAL POWDER OMEPRAZOLE 20 MG CAPSULE,DELAYED RELEASE SERTRALINE 50 MG TABLET URSODIOL 250 MG TABLET Unless otherwise directed by your surgeon, do not take any Aspirin, fish oil supplement s, vitamin E or non-steroidal anti-inflammatory (NSAIDs i.e. Advil, Aleve, Ibuprofen) or her bal supplements 7 days prior to your surgery. These drugs may interfere with normal blood cl otting and may cause excessive bleeding and bruising during or after the surgery. If you need a pain medication for general purposes, use Tylenol as directed. OK to naomi e it even on the morning of surgery, if needed. If you are in doubt about any medications that you are taking, please contact our office . Other Important Guidelines ? Do not shave the surgical area ? Do not smoke, drink alcohol or use recreational drugs for 24 hours before your surgery Watch for any change in your health condition. Let your surgeon know right away if you do not feel well--this includes calling if you think you are developing a "cold" in the days before your surgery. ? Do not wear makeup, perfume, lotions, deodorant, powder or hairspray. Do not wear any jewelry to the hospital. Wear loose, comfortable clothing. Leave all your valuables at home. Allow enough travel time so you re not late for your check in for surgery. ? Take a bath or shower and remember to shampoo your hair using your usual hair product be fore your arrival at the hospital ? Please remember to brush your teeth the night before and the morning of your procedure. Preventing post op complications while you are in the hospital Use an incentive spirometer or peep breathe to keep your lungs working properly an d to help prevent respiratory complications. It helps you take long, deep breaths. Use it at least once every hour while you are awake. Leg and feet exercises will maintain good circulation and help prevent blood clots in yo ur legs. Sometimes your doctor will order sequential air compression stockings. Compressed air helps the circulation in your legs. Walking and moving will help stimulate normal circulation and deep breathing. Going Home Your surgical team will decide when you are medically ready to go home. If you are released to go home on the same day as your procedure/surgery please note th e following: You will not be able to drive yourself A responsible adult MUST escort you home. You may not drive yourself Your responsible adult can drive you or they can accompany you in a taxi, ride share (hernandez ch as Uber/Lyft), or public transportation. An Uber/Lyft/logging truck driver does not count as the responsible adult who accompanies you. Certified Medical Transport can transport you after surgery as long as a competent adult is waiting for you on arrival at your destination Although not mandatory, it is highly recommended that a patient has a responsible person with you to provide overnight monitoring/support following discharge. It IS required that you have a competent person assist you and look after you on the rst night after you have undergone regional blocks (72 hours for patients going home with re gional block pump) If you stayed in the hospital after surgery, please discuss anticipated discharge time and plans with your inpatient team so that transportation plans and other going home arrange ments can be coordinated If you have questions or concerns after you go home, call your doctor s office. If it is after office hours, call the [facility] stone lathe operator at [phone] and ask them to page him or h er. documented in this encounter Plan of Treatment Not on filedocumented as of this encounter Visit Diagnoses Not on filedocumented in this encounter
--- OUTSIDE RECORDS SUMMARY | ~2020-04-27 | XMS | Encounter Summary ---
Demographics + + + | Address | [address] | | | [place] [address] | + + + | Home Phone [...] [place] | | | | | [address] | | + + + + + Care Team Providers + +------+ + | Care Product Marketer Name | Role | Phone | + [...] 08/31/ | Anesthesia | 6A Intra Op 3181 | Mark Portillo, | | | 2018 | Event | SULLY Lopez | DO, [place] [address] | | | | | [facility] | Jass Lopez | | | | | Hospital Admitting | [place], [place] | | | | | Desk Located on the | [address] | | | | | 9th floor | [phone] | | | | | [place], [place] | | | | | | [address] | | | +--------+ + + + [...] Hand; 22 g; Positive; 09/02/18; | Reyna Gibson RN | Marylou Arnett, | | IV [...] Not on filedocumented as of this encounter Procedures + +--------+ + + + | Procedure Name | Priori | Date/Time | Associated Diagnosis | Comments | | | ty | | | | + +--------+ + + + | ALEXANDRE ETT | Routin | 08/31/2018 | | Results for this | | | e | 1:33 PM | | procedure are in the | | | | PST | | results section. | + +--------+ + + + documented in this encounter Results ALEXANDRE ETT (08/31/2018 1:33 PM PST) + + [...] | | | | | CONTINUOUS, Starting Wed08/31/18 | anesthes | PM PST | | [...] 1:16 | | | | | Starting 08/31/18 at 1250, | | PM PST | [...]
--- OUTSIDE RECORDS SUMMARY | ~2020-04-27 | XMS | Encounter Summary ---
Demographics + + + | Address | [address] | | | [place] [address] | + + + | Home Phone | | + + + | Preferred Language | Unknown | + + + | Marital Status | | + + + | Denominational Affiliation | CHR | + + + | Race | White | + + + | Ethnic Group | Not or | + + + Author + + + | Author | [facility] | + + + | Organization | [facility] | + + + | Address | Unknown | + + + | Phone | Unavailable | + + + Support + + + + + | Name | Relationship | Address | Phone | + + + + + | Stewart Corbett | ECON | [address] | | | | | [place] | | | | | [address] | | + + + + + Care Team Providers + +------+ + | Care Salvationist Name | Role | Phone | + +------+ + | Aleshia Martinez PA-C | PCP | | + +------+ + Encounter Details +--------+ + + + + | Date | Type | Department | Care Team | Description | +--------+ + + + + | 03/15/ | MyChart | Digestive Health | Marta Simmons, | RE: Late arrival | | 2019 | Encounter | Center at [facility] [address] | AGACNP [address] | | | | | [address] | Ave [place], [place] | | | | | Mailcode: Center | [address] | | | | | for Health and | [phone] | | | | | Healing, [address] | | | | | | [place], [place] | | | | | | [address] | | | | | | | [...]
--- OUTSIDE RECORDS SUMMARY | ~2020-04-27 | XMS | Encounter Summary ---
Demographics + + + | Address | [address] | | | [place] [address] | + + + | Home Phone | | + + + | Preferred Language | Unknown | + + + | Marital Status | | + + + | Mandaeism Affiliation | CHR | + + + | Race | White | + + + | Ethnic Group | Not or | + + + Author + + + | Author | [facility] | + + + | Organization | [facility] | + + + | Address | Unknown | + + + | Phone | Unavailable | + + + Support + + + + + | Name | Relationship | Address | Phone | + + + + + | Stewart Corbett | ECON | [address] | | | | | [place] | | | | | [address] | | + + + + + Care Team Providers + +------+ + | Care Short Filler Bunch Machine Operator Name | Role | Phone | + +------+ + | Aleshia Martinez PA-C | PCP | | + +------+ + Encounter Details +--------+ + + + + | Date | Type | Department | Care Team | Description | +--------+ + + + + | 09/16/ | MyChart | Digestive Health | Gildardo Downing, | RE: RE: RE: Odd pain | | 2018 | Encounter | Center at [facility] [address] | MD [address] | | | | | [address] | [facility] [place] | | | | | Mailcode: Center | [address] | | | | | for Health and | | | | | | [facility] [address] | | | | | | [place], [place] | | | | | | [address] | | | | | | | [...]
--- OUTSIDE RECORDS SUMMARY | ~2020-04-27 | XMS | Encounter Summary ---
Demographics + + + | Address | [address] | | | [place] [address] | + + + | Home Phone [...] + + + | Author | [facility] | + + + | Organization | [facility] | + + + | Address | Unknown | + + + | Phone | Unavailable | + + + Support + + + + + | Name | Relationship | Address | Phone | + + + + + | Stewart Corbett | ECON | [address] | | | | | [place] | | | | | [address] | | + + + + + Care Team Providers + +------+ + | Care Light Fixture Servicer Name | Role | Phone | + +------+ + | No Pcp Per Patient | PCP | Unavailable | + +------+ + Encounter Details +--------+ + + + + | Date | Type | Department | Care Team | Description | +--------+ + + + + | 10/22/ | Abstract | Digestive Health | Clinic, Surgery | | | 2016 | | [place] [facility] [address] | | | | | | [address] | | | | | | Mailcode: [place] | | | | | | [facility] Health and | | | | | | Healing, [address] | | | | | | [place], [place] | | | | | | [address] | | | | | | [phone] | | | +--------+ + + + [...]
--- OUTSIDE RECORDS SUMMARY | ~2020-04-27 | XMS | Encounter Summary ---
Demographics + + + | Address | [address] | | | [place] [address] | + + + | Home Phone | | + + + | Preferred Language | Unknown | + + + | Marital Status | | + + + | Restorationist Affiliation | CHR | + + + [...] [place] | | | | | [address] | | + + + + + Care Team Providers + +------+ + | Care Reinforced Concrete Inspector Name | Role | Phone | + +------+ + | Aleshia Martinez PA-C | PCP | | + +------+ + Encounter Details +--------+ + + + + | Date | Type | Department | Care Team | Description | +--------+ + + + + | 11/20/ | MyChart | Digestive Health | Shu | RE: New pain | | 2020 | Encounter | Center at [facility] [address] | MD [address] | | | | | [address] | [address] | | | | | Mailcode: Center | [place], [place] | | | | | for Health and | [address] | | | | | Healing, [address] | [phone] | | | | | [place], [place] | | | | | | [address] | | | | | | [phone] | | | +--------+ + + + [...]
--- OUTSIDE RECORDS SUMMARY | ~2020-04-27 | XMS | Encounter Summary ---
Demographics + + + | Address | [address] | | | [place] [address] | + + + | Home Phone | | + + + | Preferred Language | Unknown | + + + | Marital Status | | + + + | Congregation Affiliation | CHR | + + + | Race | White | + + + | Ethnic Group | Not or | + + + Author + + + | Author | [facility] | + + + | Organization | [facility] | + + + | Address | Unknown | + + + | Phone | Unavailable | + + + Support + + + + + | Name | Relationship | Address | Phone | + + + + + | Stewart Corbett | ECON | [address] | | | | | [place] | | | | | [address] | | + + + + + Care Team Providers + +------+ + | Care Knitting Supervisor Name | Role | Phone | [...] | [facility] | | | with SUPERVISOR FUNCTIONAL TESTING | | obesity | Ganesh Holden MD | [facility] [address] | | | | | (HCC) | [address] | | | | | Procedures | [address] | Mailcode: | | | | | CONSULT TO | Jessica Sepulveda | [facility] | | | | | BARIATRIC | [place], [place] | Health and | | | | | SURGERY | [address] | Healing, | | | | | | | [address] | | | | | | | [place], [place] | | | | | | | [address] | | | | | | | Phone: | | | | | | | [phone] | | | | | | | Fax: | | | | | | | [phone] | + + + + + + + Encounter Details +--------+---------+ + + + | Date | Type | Department | Care Team | Description | +--------+---------+ + + + | 06/16/ | Office | Digestive Health | Gildardo Downing, | Morbid obesity with | | 2017 | Visit | Center at [facility] [address] | MD [address] | BMI of 40.0-44.9, | | | | [address] | [place], [place] | adult (HCC) (Primary | | | | Mailcode: Center | [address] | Dx); Essential | | | | for Health and | [phone] | hypertension; | | | | Healing, [address] | | Ventral hernia with | | | | [place], [place] | | obstruction and | | | | [address] | | without gangrene | | | | [phone] | | | +--------+---------+ + + + [...] 06/16/2018 9:20 AM PDTPlease visit with our [facility] The[facility]ist (RD) for instructions about your Bariatric diet, assistance with calorie c ounts, tips and tricks for working with your diet restrictions, and recipes after bariatric surgery. Daily yogurt; even just 1 tablespoon twice a day will provide enough probiotics to optimize digestion. Try to use a high-quality, probiotic-dense yogurt (eg Marielena's, Marcello, Enrico alberto Kefir, Home Management Supervisor Dom's Dutch Yogurt). Remember to chew your food well, [...] to the healing stomach. There are also longterm complications of poor wound healing and gastric [...] a 4-5% rate of reoperation over the longterm (i.e. years), as well as other late [...] and may approach 5%. We reviewed the [facility] consent form. We discussed that we did [...] and manage and supervise all care delivered. Emperatriz hu discussed the fact that if we encounter [...]
--- OUTSIDE RECORDS SUMMARY | ~2020-04-27 | XMS | Encounter Summary ---
Demographics + + + | Address | [address] | | | [place] [address] | + + + | Home Phone [...] [place] | | | | | [address] | | + + + + + Care Team Providers + +------+ + | Care Circulation Analyst Name | Role | Phone | [...] | 2018 | Review | Center at [facility] [address] | ACNP [address] | Recommendations | | | | [address] | Ave [place], [place] | | | | | Mailcode: [place] | [address] | | | | | [facility] Health and | [phone] | | | | | [place] [address] | | | | | | [place], [place] | | | | | | [address] | | | | | | [phone] | | | +--------+ + + + [...]
--- OUTSIDE RECORDS SUMMARY | ~2020-04-27 | XMS | Encounter Summary ---
Demographics + + + | Address | [address] | | | [place] [address] | + + + | Home Phone [...] [place] | | | | | [address] | | + + + + + Care Team Providers + +------+ + | Care German Professor Name | Role | Phone | + [...] Sulma Request | | 2019 | | [place] [facility] [address] | MD [address] | | | | | [address] | [address] | | | | | Mailcode: Center | [place], [place] | | | | | for Health and | [address] | | | | | [place] [address] | [phone] | | | | | [place], [place] | | | | | | [address] | | | | | | [phone] | | | +--------+ + + + [...]
--- OUTSIDE RECORDS SUMMARY | ~2020-04-27 | XMS | Encounter Summary ---
Demographics + + + | Address | [address] | | | [place] [address] | + + + | Home Phone [...] [place] | | | | | [address] | | + + + + + Care Team Providers + +------+ + | Care Medical Imaging Technician Name | Role | Phone | + +------+ + | Aleshia Martinez PA-C | PCP | | + +------+ + Encounter Details +--------+ + + + + | Date | Type | Department | Care Team | Description | +--------+ + + + + | 06/22/ | Telephone | Digestive Health | Gildardo Downing, | | | 2017 | | Center at [facility] [address] | [address] | | | | | [address] | [place], [place] | | | | | Mailcode: Center | [address] | | | | | for Health and | [phone] | | | | | [facility], [address] | | | | | | [place], [place] | | | | | | [address] | | | | | | [phone] | | | +--------+ + + + [...]
--- OUTSIDE RECORDS SUMMARY | ~2020-04-27 | XMS | Encounter Summary ---
Demographics + + + | Address | [address] | | | [place] [address] | + + + | Home Phone | | + + + | Preferred Language | Unknown | + + + | Marital Status | | + + + | Hindu Affiliation | CHR | + + + | Race | White | + + + | Ethnic Group | Not or | + + + Author + + + | Author | [facility] | + + + | Organization | [facility] | + + + | Address | Unknown | + + + | Phone | Unavailable | + + + Support + + + + + | Name | Relationship | Address | Phone | + + + + + | Stewart Corbett | ECON | [address] | | | | | [place] | | | | | [address] | | + + + + + Care Team Providers + +------+ + | Care Supervisor Park Workers Name | Role | Phone | + +------+ + | Aleshia Martinez PA-C | PCP | | + +------+ + Encounter Details +--------+ + + + + | Date | Type | Department | Care Team | Description | +--------+ + + + + | 08/12/ | MyChart | Digestive Health | Clinic, Surgery | | | 2018 | Encounter | Center at [facility] [address] | | | | | | [address] | | | | | | Mailcode: Center | | | | | | for Health and | | | | | | Healing, [address] | | | | | | [place], [place] | | | | | | [address] | | | | | | [phone] | | | +--------+ + + + [...]
--- OUTSIDE RECORDS SUMMARY | ~2020-04-27 | XMS | Encounter Summary ---
Demographics + + + | Address | [address] | | | [place] [address] | + + + | Home Phone [...] [place] | | | | | [address] | | + + + + + Care Team Providers + +------+ + | Care Mold Cleaning And Storage Supervisor Name | Role | Phone | [...] W, | | | 2016 | | [place] [facility] [address] | MD [address] | | | | | [address] | [facility] [place] | | | | | Mailcode: [place] | [address] | | | | | for Health and | [phone] | | | | | [facility], [facility] 2 | | | | | | [place], [place] | | | | | | [address] | | | | | | [phone] | | | +--------+ + + + [...]
--- OUTSIDE RECORDS SUMMARY | ~2020-04-27 | XMS | Encounter Summary ---
Demographics + + + | Address | [address] | | | [place] [address] | + + + | Home Phone | | + + + | Preferred Language | Unknown | + + + | Marital Status | | + + + | Mandaen Affiliation | CHR | + + + [...] [place] | | | | | [address] | | + + + + + Care Team Providers + +------+ + | Care Java Support Engineer Name | Role | Phone | + [...] 04/12/ | Abstract | Digestive Health | Marta Simmons, | Outside Records | | 2019 | | Center at [facility] [address] | AGACNP [address] | Received | | | | [address] | [place], [place] | | | | | Mailcode: Center | [address] | | | | | for Health and | [phone] | | | | | [facility], [facility] 2 | | | | | | [place], [place] | | | | | | [address] | | | | | | [phone] | | | +--------+ + + + [...]
--- OUTSIDE RECORDS SUMMARY | ~2020-04-27 | XMS | Encounter Summary ---
Demographics + + + | Address | [address] | | | [place] [address] | + + + | Home Phone [...] [place] | | | | | [address] | | + + + + + Care Team Providers + +------+ + | Care Talent Acquisition Partner Name | Role | Phone | + [...] | | 2019 | | Center at [facility] 34[address] | MD [address] | | | | | [address] | [place], [place] | | | | | Mailcode: [place] | [address] | | | | | for Health and | | | | | | [facility] 2 | | | | | | [place], [place] | | | | | | [address] | | | | | | | [...]
--- OUTSIDE RECORDS SUMMARY | ~2020-04-27 | XMS | Encounter Summary ---
Demographics + + + | Address | [address] | | | [place] [address] | + + + | Home Phone | | + + + | Preferred Language | Unknown | + + + | Marital Status | | + + + | Restorationism Affiliation | CHR | + + + | Race | White | + + + | Ethnic Group | Not or | + + + Author + + + | Author | [facility] | + + + | Organization | [facility] | + + + | Address | Unknown | + + + | Phone | Unavailable | + + + Support + + + + + | Name | Relationship | Address | Phone | + + + + + | Stewart Corbett | ECON | [address] | | | | | [place] | | | | | [address] | | + + + + + Care Team Providers + +------+ + | Care Sheet Cutter Name | Role | Phone | [...] | 2019 | Encounter | Center at [facility] [address] | MD Bryson [address] | paperwork | | | | [address] | [address] | | | | | Mailcode: Center | [place], [place] | | | | | for Health and | [address] | | | | | Healing, Building 2 | [phone] | | | | | [place], [place] | | | | | | [address] | | | | | | [phone] | | | +--------+ + + + [...]
--- OUTSIDE RECORDS SUMMARY | ~2020-04-27 | XMS | Encounter Summary ---
Demographics + + + | Address | [address] | | | [place] [address] | + + + | Home Phone | | + + + | Preferred Language | Unknown | + + + | Marital Status | | + + + | Church Affiliation | CHR | + + + [...] [place] | | | | | [address] | | + + + + + Care Team Providers + +------+ + | Care Rope Rider Name | Role | Phone | + +------+ + | Aleshia Martinez PA-C | PCP | | + +------+ + Encounter Details +--------+ + + + + | Date | Type | Department | Care Team | Description | +--------+ + + + + | 07/12/ | Abstract | Digestive Health | Clinic, Surgery | | | 2017 | | [place] [facility] [address] | | | | | | [address] | | | | | | Mailcode: [place] | | | | | | for Health and | | | | | | Healing, Building 2 | | | | | | [place], [place] | | | | | | [address] | | | | | | [phone] | | | +--------+ + + + [...]
--- OUTSIDE RECORDS SUMMARY | ~2020-04-27 | XMS | Encounter Summary ---
Demographics + + + | Address | [address] | | | [place] [address] | + + + | Home Phone [...] + + + | Author | [facility] | + + + | Organization | [facility] | + + + | Address | Unknown | + + + | Phone | Unavailable | + + + Support + + + + + | Name | Relationship | Address | Phone | + + + + + | Stewart Corbett | ECON | [address] | | | | | [place] | | | | | [address] | | + + + + + Care Team Providers + +------+ + | Care Senior Counsel Commercial Name | Role | Phone | + +------+ + | No Pcp Per Patient | PCP | Unavailable | + +------+ + Encounter Details +--------+ + + + + | Date | Type | Department | Care Team | Description | +--------+ + + + + | 11/29/ | Document-Sc | Health Information | Unknown . | | | 2016 | anned | Services [address] | | | | | | [address] | | | | | | Mailcode: OP17A | | | | | | [facility] | | | | | | [place], [place] | | | | | | [address] | | | | | | [phone] | | | +--------+ + + + + Social History + +-------+ +--------+------+ | Tobacco Use | Types | Packs/Day | Years | Date | | | | | Used | | + +-------+ +--------+------+ | Never Assessed | | | | | + +-------+ +--------+------+ + + + | Sex Assigned at [...] | + +--------+ + + + | RADIOLOGY | | 11/29/2015 | | Results for this | | | | 12:00 AM | | procedure are in the | | | | PST | | results section. | + +--------+ + + + documented in this encounter Results RADIOLOGY (11/29/2015 12:00 AM PST) + + + | Narrative | Performed At | + + + | | | + + + documented in this encounter Visit Diagnoses Not on filedocumented in this encounter"
--- OUTSIDE RECORDS SUMMARY | ~2020-04-27 | XMS | Encounter Summary ---
Demographics + + + | Address | [address] | | | [place] [address] | + + + | Home Phone [...] [place] | | | | | [address] | | + + + + + Care Team Providers + +------+ + | Care Entry Level Management Name | Role | Phone | + +------+ + | Aleshia Martinez PA-C | PCP | | + +------+ + Encounter Details +--------+ + + + + | Date | Type | Department | Care Team | Description | +--------+ + + + + | 08/12/ | [place] | Digestive Health | Clinic, Surgery | RE: Possible surgery | | 2017 | Encounter | Center at [facility] [address] | | denial | | | | [address] | | | | | | Mailcode: Center | | | | | | for Health and | | | | | | Healing, Building 2 | | | | | | [place], [place] | | | | | | [address] | | | | | | [phone] | | | +--------+ + + + [...]
--- OUTSIDE RECORDS SUMMARY | ~2020-04-27 | XMS | Encounter Summary ---
Demographics + + + | Address | [address] | | | [place] [address] | + + + | Home Phone [...] [place] | | | | | [address] | | + + + + + Care Team Providers + +------+ + | Care Can Filling And Closing Machine Tender Name | Role | Phone | + +------+ + | Aleshia Martinez PA-C | PCP | | + +------+ + Reason for Referral Diagnostic Testing (Urgent) + +--------+ + + + + | Status | Reason | Specialty | Diagnoses / | Referred By | Referred To | | | | | Procedures | Contact | Contact | + +--------+ + + + + | Authorized | | Radiology | Diagnoses | | | | | | | Recurrent | Shu | | | | | | ventral | MD Bryson | | | | | | hernia | [address] [facility] [address] | | | | | | Procedures | [address] | | | | | | CT ABDOMEN | Rd | | | | | | AND PELVIS | [place], [place] | | | | | | [place] | [address] | | | | | | CONTRAST | Phone: | | | | | | | [phone] | | | | | | | Fax: | | | | | | | [phone] | | + +--------+ + + + + Reason for Visit + + + | Reason | Comments | + + + | Patient's Condition | | | Worsened | | + + + Encounter Details +--------+ + + + + | Date | Type | Department | Care Team | Description | +--------+ + + + + | 09/13/ | Telephone | Digestive Health | Shu | Patient's Condition | | 2019 | | [place] [address] | MD Bryson [address] | Worsened | | | | [address] | [address] | | | | | Mailcode: [place] | [place], [place] | | | | | [facility] and | [address] | | | | | [facility] 2 | [phone] | | | | | [place], [place] | | | | | | [address] | | | | | | [phone] | | | +--------+ + + + [...] of this encounter Plan of Treatment + +---------+--------+ + + | Name | Type | Priori | Associated Diagnoses | Order Schedule | | | | ty | | | + +---------+--------+ + + | CT ABDOMEN AND | Imaging | Urgent | Recurrent ventral | Expected: | | PELVIS WO IV | | | hernia | 09/13/2019, Expires: | | CONTRAST | | | | 10/13/2020 | + +---------+--------+ + + documented as of this encounter Visit Diagnoses + + | Diagnosis | + + | Recurrent ventral hernia - Primary Incisional hernia without mention of obstruction | | or gangrene | + + documented in this encounter"
--- OUTSIDE RECORDS SUMMARY | ~2020-04-27 | XMS | Encounter Summary ---
Demographics + + + | Address | [address] | | | [place] [address] | + + + | Home Phone | | + + + | Preferred Language | Unknown | + + + | Marital Status | | + + + | Jewish Affiliation | CHR | + + + | Race | White | + + + | Ethnic Group | Not or | + + + Author + + + | Author | [facility] | + + + | Organization | [facility] | + + + | Address | Unknown | + + + | Phone | Unavailable | + + + Support + + + + + | Name | Relationship | Address | Phone | + + + + + | Stewart Corbett | ECON | [address] | | | | | [place] | | | | | [address] | | + + + + + Care Team Providers + +------+ + | Care Envelope Cutter Name | Role | Phone | [...] 3485 | ACNP [address] | everywhere | | | | [address] | [facility] [place] | encounter) | | | | Mailcode: Center | [address] | | | | | for Health and | [phone] | | | | | [facility] 2 | | | | | | [place], [place] | | | | | | [address] | | | | | | [phone] | | | +--------+ + + + [...]
--- OUTSIDE RECORDS SUMMARY | ~2020-04-27 | XMS | Encounter Summary ---
Demographics + + + | Address | [address] | | | [place] [address] | + + + | Home Phone [...] [place] | | | | | [address] | | + + + + + Care Team Providers + +------+ + | Care Transmitter Chief Name | Role | Phone | + [...] Description | +--------+---------+ + + + | 09/22/ | Surgery | 6A Intra Op [address] | Shu, | RECURRENT VENTRAL | | 2019 | | [address] | MD Bryson [address] | HERNIA REPAIR AND | | | | Derick Ureña | [address] | EXCISION OF MESH | | | | Hospital Admitting | [place], [place] | | | | | Desk Located on the | [address] | | | | | 9th floor | [phone] | | | | | [place], [place] | | | | | | [address] | | | +--------+---------+ + + + [...] might b e different from the original. [facility] - [place] DEPOSIT SURGERY TEAM INPATIENT DISCHARGE SUMMARY Author: Shayne Laguerre DNP AGACNP-BC Attending Physician: Bryson Ireland MD PCP: Aleshia Martinez PA-C Admission Date: 09/22/2019 Discharge Date: 09/25/2019 Diagnosis: Recurrent incarcerated incisional ventral hernia. Procedure: 1.Exploratory laparotomy. 2.Excision of prior hernia mesh [id number] pieces.2.5 hours spent exc ising mesh including [...] Extremities: WWP Outstanding labs/studies: None Discharging Provider: Shayne Laguerre DNP [facility] Attending Physician: MD Shayne Mcdonough D[facility] Pager# [phone] 9:06 AM 09/25/2019 Vega colunga in this [...] hours by calling the surgery office at [phone]. After hours, weekends and holidays, you may call the hospital chip machine operator at [phone] and have the oracle applications analyst Green Team for general surgery paged. Discharge Instr [...] every 4-6 hours. Tylenol: You may use cpck-fwb-myxagve (OTC) acetaminophen (Tylenol) for milder pain. Do [...] medications with Hydrocodone such as Vicodin or [place]. It is important to keep track of [...] Worthy AGACNP - 09/25/2019 8:58 AM PSTSara aCballero is a pleasant 34 y.o. female with [...] with each shower. No soaking in water (alex seo, mahesh, swimming) until all wounds are FULLY healed [...] out a dark red color and becomes gold miner blasting and eventually a straw color. * Wash [...] removal. If you live ou t [facility], we will plan to talk with [...] Indications: | | | | | | vitamin D deficiency | Vitamin D Deficiency | | | | | | (high dose therapy) | (High Dose Therapy) | | | [...] Hilda Chua MD - 09/24/2019 6:[address] [facility] Admission Date: 09/22/2019 [...] incarcerated incisional hernia s/p repair. 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 #low UOP -resolving, saline lock -remove stafford Dispo: likely 3 days total inpatient. HILDA CHUA MD General Surgery ilda Chua MD - 09/23/2019 8:56 AM PSTDEPARTMENT OF [...] #Recurrent incarcerated incisional hernia s/p repair. -continue WAREHOUSE INSULATION WORKER and stafford until tomorrow -continue drain. #low UOP -bolus 1L of LR -keep stafford #hypomagnesemia -replace IV Dispo: likely 3 days total inpatient. HILDA CHUA MD General Surgery documented in this encounter Plan of Treatment + +---------+--------+ [...] + + + | CARDIOLOGY | | 09/22/2019 | | Results for this [...] + + + + + | [facility] | [address] | [place] [address] | | | SERVICES, CORE | PARK [...] + + | [facility] | [address] | [place] [address] | | | SERVICES, CORE | PARK [...] | | | LABORATORY | | | MAURITIAN | | | SERVICES, | | | [...] MDRD equation recommended by the National | [facility] | | Kidney Disease Education Program. Estimated [...] | + + + + + | [facility] | [address] | [place] [address] | | | NILO, KUSH | [address] | | | [...] [facility] | [address] | [place] [address] | | | SERVICES, CORE | PARK [...] [place] | [address] | [place], [place] | | | [facility] [place] OF CARE | [address] | [address] | | | TESTS | | | [...] ABDI | [address] | [place], [place] | | | [facility] OF [place] | [address] | [address] | | | TESTS | | | [...] [place] | | | | | | HILL, POINT | | | | | | OF [...] + + + + + | [facility] | [address] | [place], [place] | | | [facility] | [address] | [address] | | | TESTS | | | | + + + + + CARDIOLOGY (09/22/2019 12:00 AM PST) + + + | [...] +---+---+ +---+---+ | | | +---+---+ + +-------+ +-------+---+---+ | bupivacaine-EPINEPHrine | Given | 09/22/20 | 10 mL | | | | (MARCAINE-EPINEPHRINE) 0.25 | | 19 3:40 | | | | | %-1:200,000 injection | | PM PST | | | | | INTRAPROCEDURE PRN, Starting Fri | | | | | | | 09/22/19 at 1540, Until Fri | | | | | | | 09/22/19 at 1550 | | | | | | + +-------+ +-------+---+---+ + +---+ | | | + +---+ [...] | | | | | 1023, Until Wed09/25/19 at 1904, | | | [...] PST | | | | | on 09/25/19 at 0900, Until | | | | [...] | 4 mg 4 mg, intravenous, EVERY 12 | | 19 9:45 | | | [...] | polyethylene glycol (MIRALAX) | Given | 12/01/20 | 17 g | | | | [...] 6 HOURS NEEDED, Starting | | | 09/22/19 at 2332, Until Mon | | | 09/25/19 at 1904, nausea/vomiting, | | | second line | | + +---+ | | | + +---+ + +-------+ +---------+---+---+ | senna-docusate (SENOKOT S) [...]
--- OUTSIDE RECORDS SUMMARY | ~2020-04-27 | XMS | Encounter Summary ---
Demographics + + + | Address | [address] | | | [place] [address] | + + + | Home Phone | | + + + | Preferred Language | Unknown | + + + | Marital Status | | + + + | Quaker Affiliation | CHR | + + + [...] [place] | | | | | [address] | | + + + + + Care Team Providers + +------+ + | Care System Auditor Name | Role | Phone | [...]
--- OUTSIDE RECORDS SUMMARY | ~2020-04-27 | XMS | Encounter Summary ---
Demographics + + + | Address | [address] | | | [place] [address] | + + + | Home Phone | | + + + | Preferred Language | Unknown | + + + | Marital Status | | + + + | Gnosticist Affiliation | CHR | + + + [...] [place] | | | | | [address] | | + + + + + Care Team Providers + +------+ + | Care Radar Air Traffic Controller Name | Role | Phone | + +------+ + | Aleshia Martinez PA-C | PCP | | + +------+ + Encounter Details +--------+ + + + + | Date | Type | Department | Care Team | Description | +--------+ + + + + | 04/08/ | Patient | [facility] | Ritchie Em, | | | 2019 | Self-Triage | Visits- Urgent Care | [address] | | | | | [address] | [address] | | | | | [place], | [place], [place] | | | | | [place] [address] | [address] | | | | | [phone] | [phone] | | | | | | | [...]
--- OUTSIDE RECORDS SUMMARY | ~2020-04-27 | XMS | Encounter Summary ---
Demographics + + + | Address | [address] | | | [place] [address] | + + + | Home Phone [...] [place] | | | | | [address] | | + + + + + Care Team Providers + +------+ + | Care Senior Clinical Project Manager Name | Role | Phone [...] | | [address] | [address] | GASTRECTOMY with EGD | | | | Rd [facility] | [place], [place] | | | | | Hospital Admitting | [address] | | | | | Desk Located on the | [phone] | | | | | 9th floor | | | | | | [place], [place] | | | | | | [address] | | | +--------+---------+ + + + [...] might be differen t from the original. [facility] [place] RED SURGERY INPATIENT DISCHARGE SUMMARY Author: GAUTAM [...] or Kefir, [place] Yogurt, and Chioban i Malay Yogurt are common brands with beneficial probiotics. [...] are available over the counter at most [facility] stores. Nausea/Vomiting/Difficulty Swallowing Nausea/Vomiting/Difficulty swallowing: Could be [...] hours per your instructions. Some medications, like [place], have Tylenol in it. Make sure you [...] (PCP) as this clinic does not provide [facility] chronic pain management services. When to Call [...] hours by calling the surgery office at [phone]. - After hours, weekends and holidays, you may call the hospital broadcast transmitter operator at [phone] an d have the operation specialist Red Surgery Team paged. Destination Home Condition [...] Acute Care Why: follow up with bariatric INVESTOR RELATIONS MANAGER Contact information [address] [facility] [address] Future Appointments Provider Department Dept Phone Center 09/07/2018 10:00 AM Chetna Alves Digestive [facility] at [facility] 6th Floor [phone] KATIA D AND NUT 09/07/2018 10:50 AM Emily Martinez Digestive [facility] at [facility] 6th Floor [phone] D ig Health 09/29/2018 10:30 AM Tea Reece Digestive [facility] at [facility] 6th Floor [phone] F OOD AND NUT 09/29/2018 11:20 AM Gildardo Downing Digestive [facility] Center at [facility] 6th Floor [phone] Di g Health 11/25/2018 10:00 AM Tea Reece [facility] at [facility] 6th Floor [phone] FO OD AND NUT 11/25/2018 10:50 AM Shanon Etienne Digestive [facility] at [facility] 6th Floor [phone] Dig He[facility] Discharging Physician: GAUTAM Leblanc Attending Physician: Gildardo Downing MD [facility] Red Surgery Pager# [phone] 10:42 AM 09/02/2018 documented in th is [...] Notes Vel Severino - 09/01/2018 2:43 PM [facility] Red Surgery Admission Date: 08/31/2018 [...] this helps. Gildardo Downing MD, FACS, [facility] Division of Bariatric Surgery [facility] | [address] | [place], [place] | [address] | Ludwin Tellez MD - 08/31/2018 8:54 [...] Ludwin Tellez MD General Surgery, PGY1 Pager: [phone] documented in this en counter Plan of [...] GASTRECTOMY | ve | 12:25 PM | ([facility]) | | | | Surgic | [...] DEPT OF | [address] | [place], [place] | | | CARDIOLOGY | [address] | [address] | | + + + + + [...] ABDI | [address] | [place], [place] | | | CHARITO POINT OF CARE | [address] | [address] | | | TESTS | | | [...] [place] | [address] | [place], [place] | | | HILL, POINT OF CARE | [address] | [address] | | | TESTS | | | [...] SURGEON: Gildardo Downing MD. | | | BUSINESS DEVELOPMENT AGENT: Jamie Gonzales MD R6. ANESTHESIA: Ke Strong [...] | | | Gildardo Downing MD, FACS, [facility] Bariatric Surgery | | | | [...] SURGEON: Gildardo Downing MD. | | | BUSINESS DEVELOPMENT AGENT: Jamie Gonzales MD R6. ANESTHESIA: Ke Strong [...] | | | Gildardo Downing MD, FACS, [facility] Bariatric Surgery | | | | [...] [place] | [address] | [place], [place] | | | CHARITO POINT OF CARE | [address] | [address] | | | TESTS | | | [...]
--- OUTSIDE RECORDS SUMMARY | ~2020-04-27 | XMS | Encounter Summary ---
Demographics + + + | Address | [address] | | | [place] [address] | + + + | Home Phone [...] [place] | | | | | [address] | | + + + + + Care Team Providers + +------+ + | Care Lumber Cutter Name | Role | Phone | [...] | 2018 | Encounter | Center at [facility] [address] | [address] | am | | | | [address] [facility] | Jessica Sepulveda [place], | | | | | for Health and | [place] [address] | | | | | Healing, Building 2 | [phone] | | | | | [place], [place] | | | | | | [address] | | | | | | [phone] | | | +--------+ + + + [...]
--- OUTSIDE RECORDS SUMMARY | ~2020-04-27 | XMS | Encounter Summary ---
Demographics + + + | Address | [address] | | | [place] [address] | + + + | Home Phone [...] [place] | | | | | [address] | | + + + + + Care Team Providers + +------+ + | Care Supervisor Accounts Receivable Name | Role | Phone | + [...] 2018 | Encounter | Center at [address] | MD [address] | | | | | [address] | [place], [place] | | | | | Mailcode: Center | [address] | | | | | for Health and | | | | | | [facility] 2 | | | | | | [place], [place] | | | | | | [address] | | | | | | | [...]
--- OUTSIDE RECORDS SUMMARY | ~2020-04-27 | XMS | Encounter Summary ---
Demographics + + + | Address | [address] | | | [place] [address] | + + + | Home Phone [...] [place] | | | | | [address] | | + + + + + Care Team Providers + +------+ + | Care Sponge Packer Name | Role | Phone | + +------+ + | Aleshia Martinez PA-C | PCP | | + +------+ + Encounter Details +--------+---------+ + + + | Date | Type | Department | Care Team | Description | +--------+---------+ + + + | 09/07/ | Office | Digestive Health | Emily Martinez, | S/P laparoscopic | | 2018 | Visit | [facility] at [facility] | ACNP [address] | sleeve gastrectomy | | | | [address] | Ave [place], [place] | (Primary Dx); | | | | Mailcode: Center | [address] | Vitamin D | | | | for Health and | [phone] | deficiency; Vitamin | | | | [facility] 2 | | B 12 deficiency; | | | | [place], [place] | | Morbid obesity (HCC) | | | | [address] | | | | | | | [...] + + + | Blood Pressure | 141/98 | 09/07/2018 11:20 AM | | | | | PST | | + + + + + | Pulse | 93 | 09/07/2018 11:20 AM | | | | | PST | | + + + + + | Temperature | 36.7 C (98.1 F) | 09/07/2018 11:20 AM | | | | | PST | | + + + + + | Respiratory Rate | - | - | | + + + + + | Oxygen Saturation | 97% | 09/07/2018 11:20 AM | | | | | PST | | + + + + + | Inhaled Oxygen | - | - | | | Concentration | | | | + + + + + | Weight | 115.2 kg (254 lb) | 09/07/2018 11:20 AM | | | | | PST | | + + + + + | Height | 170.2 cm (5' 7") | 09/07/2018 11:20 AM | | | | | PST | | + + + + + | Body Mass Index | 39.78 | 09/07/2018 11:20 AM | | | [...] of this encounter Patient Instructions Patient Instructions Emily Martinez [facility] - 09/07/2018 10:50 AM PST3. Take acid patent agent fo r first 3 mos, then wean off over 2 wks. Even if you have NO symptoms 4. Actigall/ ursodiol: this will be taken for 6 months post op to prevent gallstones. Hair Loss Massage your scalp as you wash your hair. The more you exercise especially to the point of sweating, improves circulation To your scalp and improves hair growth. Protein: 80-100 grams per day for women Close to 100 grams per day for men Biotin: 5 mg/day ( 5000 mcg) Stop 3-4 days before having Vit D drawn, or any thyroid labs, as it will effect the results Flaxseed Oil: 15ml per day (1 Tbs) Linseed oil or olive oil may be considered ( which is likely what you are cooking with) Iron tablets: 65mg elemental iron per day or 325 mg per day for ferrous fumarate or glucona te. (2 hours separate from any calcium, dairy or acid reducers) this is the routine Amount in your multi vit. Regular daily supplements should be continued: Chewable multivitamin with iron, twice the adult dose daily (2 hours separate from any yoanna cium, dairy or acid reducers) Calcium citrate 5940-9774 mg per day with vitamin D 1000 IU per day (2 hrs separate from i william) Vitamin B12 500 mcg per day sub-lingual or once per month shot 1000mcg dose Please return at 1 month post op to see us as scheduled. Call or mychart with ANY questions or concerns Please check your blood pressure at " [facility]" If it is more than 150/90 call your pcp. O ther gentile don't take your atenolol For now. documented in this encounter Progress Notes Emily Martinez ACNP - 09/07/2018 10:50 AM PSTFormatting of this note might be different f rom the original. BARIATRIC FOLLOW-UP Sara BloodJohnAric is a 33 y.o. patient who underwent a sleeve gastrectomy by Dr. Sang malik. She is here for her 1 week post op visit. She stayed an extra day in the hospital for muscle spasms of her stomach treated with diaza romeo. Scheduled with pigs feet finisher following this appointment. Arrived on time, rooming delayed Last office visit reviewed. Op-report reviewed. Labs reviewed. Weight start of program: 276 at time of [place] 262 --> 254 (total 8 lb weight loss) Blood pressure (!) 141/98, pulse 93, temperature 36.7 C (98.1 F), temperature source Or al, height 1.702 m (5' 7"), weight 115.2 kg (254 lb), SpO2 97 %. Body mass index is 39.78 kg/m. ALLERGIES: Allergies Allergen Reactions Adhesive Rash Iodine Contrast [Contrast Medium] Rash Latex Rash Naproxen Rash Current Outpatient Prescriptions: acetaminophen 325 mg oral tablet, Take 2 tablets by mouth every six hours as needed for pain. Cut tablet into small pieces. Do not crush., Disp: 100 tablet, Rfl: 0 ALBUTEROL INHL, Inhale 2 puffs as needed. [...] Indicati ons: Vitamin D Deficiency (High Dose Therapy) (Patient not taking: Reported on 06/16/2018), D isp: 15 capsule, Rfl: 0 fluticasone 50 mcg/actuation nasal spray,suspension, Instill 1 spray into each nostril as n eeded. , Disp: , Rfl: glycerin (ADULT) rectal suppository, Unwrap and insert 1 suppository rectally once daily as needed (for constipation)., Disp: 24 suppository, Rfl: 2 hyoscyamine (LEVSIN) 0.125 mg oral tablet, Take 1 tablet by mouth every four hours as neede d. Indications: muscle spasms, Disp: 30 tablet, Rfl: 0 ibuprofen 200 mg oral capsule, Take 1 capsule by mouth as needed. Hold for 1 week after mitchell bennie, Disp: , Rfl: omeprazole 20 mg oral capsule,delayed release(DR/EC), Take 1 capsule by mouth once daily in the morning. Open the capsule and mix into sugar-free liquid or yogurt., Disp: 90 capsule, Rfl: 0 ondansetron 8 mg oral tablet, Take 8 mg by mouth every twelve hours as needed., Disp: , Rfl : ondansetron ODT 4 mg oral tablet,disintegrating, Dissolve 1 tablet on tongue and swallow ev lyndsay six hours as needed for nausea/vomiting., Disp: 30 tablet, Rfl: 1 oxyCODONE (immediate release) 5 mg oral tablet, Take 1-3 tablets by mouth every four hours as needed for moderate pain or severe pain., Disp: 40 tablet, Rfl: 0 polyethylene glycol 17 gram/dose oral powder, Dissolve 17 g (1 capful) into 4 ounces of liq uid and drink once daily as needed for constipation., Disp: 255 g, Rfl: 0 sertraline 50 mg oral tablet, Take 75 mg by mouth once daily. , Disp: , Rfl: simethicone chew 80 mg oral tablet,chewable, Chew and swallow 1 tablet four times daily as needed for gas/bloating., Disp: 30 tablet, Rfl: 0 ursodiol 300 mg oral capsule, Take 1 capsule by mouth two times daily. Start taking two wee ks after your surgery., Disp: 60 capsule, Rfl: 5 History: Past Medical History: Diagnosis Date Anxiety [...] of fallopian tube Laparoscopic sleeve gastrectomy 08/31/[address] [facility] Dr Downing Social History Social History Marital status: [...] High blood pressure Brother hyperlipidemia Allergies Brother Bariatric Medications: to start at 2 weeks post op MVI with iron twice daily: no Calcium citrate 1500mg daily: no B12 500mcg SL daily or monthly shot: no H2RB/PPI daily: no Actigall 300 BID: no Narcotics: yes Trying not to... Taking oxy just at nite Symptoms: Nausea: None Dysphagia: <1 time per week Vomiting: None Heartburn: None Abd Pain: 2-5 times per week Constipation: None Diarrhea: None Exam General- Alert and oriented x4, WD, WN, NAD, Obese, well appearing Well hydrated: moist mucous membranes Lungs: regular and even excursion, no audible wheezes Card/Circ: no LE edema Abd - Soft, NT, NR, NG Wounds - healing no signs of infection Assessment/Plan: 1. S/P sleeve gastrectomy, Doing well at 1 week 2. Labs:none today 3. Take acid patent agent for first 3 mos, then wean off over 2 wks. Even if you have NO sympto ms 4. Actigall/ ursodiol: this will be taken for 6 months post op to prevent gallstones. 5. Atenolol: 50 mg a day: instructed to hold at discharge. Currently blood pressure is with in reason, She has been off this medication x 7 days. Recommend she follow up with pcp, Use BP cuff at pharmacy and call pcp for blood pressure 150/90 or any issues With dizziness. Continue to work on meeting fluid targets 6. Hair loss instructions are provided Please return to see us: as scheduled Is patient taking meds according to discharge instructions yes Does the patient feel medication instructions were clear at discharge yes Given a binder during hospital stay? Yes Arrived on time Rooming was very delayed. Appointment started at: 1130 Appointment ended at: 1200 Total time in appointment: 30 Emily Martinez DNP, ACNP, HEADEND TECHNICIAN Beam Warper Bariatric Surgery [facility] documented in this encounter Plan of Treatment Not on filedocumented as of this encounter Visit Diagnoses + + | Diagnosis | + + | S/P laparoscopic sleeve gastrectomy - Primary | + + | Vitamin D deficiency | + + | Vitamin B 12 deficiency Other B-complex deficiencies | + + | Morbid obesity (HCC) Morbid obesity | + + documented in this encounter
--- OUTSIDE RECORDS SUMMARY | ~2020-04-27 | XMS | Encounter Summary ---
Demographics + + + | Address | [address] | | | [place] [address] | + + + | Home Phone [...] [place] | | | | | [address] | | + + + + + Care Team Providers + +------+ + | Care Route Service Manager Name | Role | Phone | [...] Morbid | Mary W, | [address] | | | | | obesity | AGACNP [address] | | | | | ([facility]) | [address] | Mailcode: | | | | | Procedures | Monica | [address] | | | | | PHYSICAL | [place] | for Health | | | | | THERAPY | [address] | and Healing, | | | | | REFERRAL | Phone: | Building 1, | | | | | | | [address] Floor | | | | | | Fax: | [place], [place] | | | | | | [phone] | [address] | | | | | | | Phone: | | | | | | | [phone] | | | | | | | Fax: | | | | | | | [phone] | +--------+--------+ + + + + Encounter Details +--------+---------+ + + + | Date | Type | Department | Care Team | Description | +--------+---------+ + + + | 01/06/ | Office | [facility] | Nesha Hannon, PT | Morbid obesity with | | 2018 | Visit | Therapy Services at | [address] [facility] | BMI of 40.0-44.9, | | | | [facility] | [address] [place], | adult (HCC) (Primary | | | | [address] | [place] [address] | Dx); Essential | | | | Mailcode: [facility] | [phone] | hypertension; | | | | [facility] | | Ventral hernia with | | | | and Healing, | | obstruction and | | | | [address] | | without gangrene; | | | | Floor [place], [place] | | Physical | | | | [address] | | deconditioning | | | | [phone] | | | +--------+---------+ + + + [...] Product Type: Workers Com p / Non-Medicare [facility] EVALUATION Past Medical History: Diagnosis [...] pain is not a significant clinical problem [facility]ERAP[facility] EVALUATION History of Presenting Problem: [...] to work due to pain/injury. [facility]. Living situation/environment is limiting function: no Equipment [...] Moderate - Moderate complexity Complexity: Moderate - 56990 The patient requires services that can be [...] status. NESHA HANNON PT [facility] SERVICES AT [facility] 1ST FLOOR Scheduled Appointment time: [...] 1 Referral information Authorizing Provider: MARY ADAMS [[id number]] Onset/Referral Date: 10/27/17 Primary/Referral Diagnosis: E66.01, Z68.41 Morbid obesity with BMI of 40.0-44.9, adult (H CC) I10 Essential hypertension K43.6 Ventral hernia with obstruction and without gangrene R53.81 Physical deconditioning Start of care: 01/06/2018 Service period from: 01/06/2018 to: - Next progress report 02/05/2018 Insurance: Payor: WORKERS COMP OTHER / Plan: WORKERS COMP OTHER / Product Type: [employer] / G-code:- code not needed. Number [...] | + +--------+ + + + | ID THERAPEUTIC | Routin | 01/10/2018 | Morbid [...]
--- OUTSIDE RECORDS SUMMARY | ~2020-04-27 | XMS | Encounter Summary ---
Demographics + + + | Address | [address] | | | [place] [address] | + + + | Home Phone [...] [place] | | | | | [address] | | + + + + + Care Team Providers + +------+ + | Care Retail Service Technician Name | Role | Phone | [...] Outside Records | | 2018 | | [place] [address] | [facility] [address] | Received (01/22/2018 | | | | [place] Mailcode: CH4S | [place], [place] | ED Notes- St. | | | | [facility] | [address] | [place]) | | | | and Healing, | [phone] | | | | | [facility] | | | | | | [place], [place] | | | | | | [address] | | | | | | [phone] | | | +--------+ + + + [...]
--- OUTSIDE RECORDS SUMMARY | ~2020-04-27 | XMS | Encounter Summary ---
Demographics + + + | Address | [address] | | | [place] [address] | + + + | Home Phone [...] [place] | | | | | [address] | | + + + + + Care Team Providers + +------+ + | Care Corrosion Technician Name | Role | Phone | [...] Pharmacy | | | | | | [address] | | | | | | [place] | | | | | | [address] | | | | | | [phone] | | | +--------+ + + + [...]
--- OUTSIDE RECORDS SUMMARY | ~2020-04-27 | XMS | Encounter Summary ---
Demographics + + + | Address | [address] | | | [place] [address] | + + + | Home Phone [...] [place] | | | | | [address] | | + + + + + Care Team Providers + +------+ + | Care Physiological Chemist Name | Role | Phone | [...] | | 2018 | | Center at [facility] [address] | MD [address] | scheduling, possible | | | | [address] | [place], [place] | GERD symptoms) | | | | Mailcode: [place] | [address] | | | | | [facility] Health and | | | | | | [facility] 2 | | | | | | [place], [place] | | | | | | [address] | | | | | | | [...]
--- OUTSIDE RECORDS SUMMARY | ~2020-04-27 | XMS | Encounter Summary ---
Demographics + + + | Address | [address] | | | [place] [address] | + + + | Home Phone [...] [place] | | | | | [address] | | + + + + + Care Team Providers + +------+ + | Care Explosives Handler Name | Role | Phone | + [...] 2020 | Encounter | [facility] [address] | MD [place] [address] | | | | | [place] | [address] | | | | | Mailcode: Center | [place], [place] | | | | | for Health and | [address] | | | | | Healing, Building 2 | [phone] | | | | | [place], [place] | | | | | | [address] | | | | | | [phone] | | | +--------+ + + + [...]
--- OUTSIDE RECORDS SUMMARY | ~2020-04-27 | XMS | Encounter Summary ---
Demographics + + + | Address | [address] | | | [place] [address] | + + + | Home Phone [...] [place] | | | | | [address] | | + + + + + Care Team Providers + +------+ + | Care Head Of Art Name | Role | Phone | + [...]
--- OUTSIDE RECORDS SUMMARY | ~2020-04-27 | XMS | Encounter Summary ---
Demographics + + + | Address | [address] | | | [place] [address] | + + + | Home Phone | | + + + | Preferred Language | Unknown | + + + | Marital Status | | + + + | Christian Affiliation | CHR | + + + [...] [place] | | | | | [address] | | + + + + + Care Team Providers + +------+ + | Care Pediatrics Teacher Name | Role | Phone | [...] | | [address] | Ave [place], [place] | (Bariatric | | | | Mailcode: Center | [address] | questionnaire) | | | | for Health and | [phone] | | | | | [facility] 2 | | | | | | [place], [place] | | | | | | [address] | | | | | | [phone] | | | +--------+ + + + [...]
--- OUTSIDE RECORDS SUMMARY | ~2020-04-27 | XMS | Encounter Summary ---
Demographics + + + | Address | [address] | | | [place] [address] | + + + | Home Phone [...] [place] | | | | | [address] | | + + + + + Care Team Providers + +------+ + | Care Marketing Analytics Analyst Name | Role | Phone | [...] 2017 | Encounter | Center at [facility] [address] | MD [address] | Acid reflux | | | | [address] | [place], [place] | | | | | Mailcode: [place] | [address] | | | | | for Health and | | | | | | [facility] 2 | | | | | | [place], [place] | | | | | | [address] | | | | | | | [...]
--- OUTSIDE RECORDS SUMMARY | ~2020-04-27 | XMS | Encounter Summary ---
Demographics + + + | Address | [address] | | | [place] [address] | + + + | Home Phone [...] [place] | | | | | [address] | | + + + + + Care Team Providers + +------+ + | Care Wood Carver Name | Role | Phone | + [...] | | | hernia | | [facility] [address] | | | | | without | | [address] | | | | | obstruction | | Center for | | | | | or gangrene | | Health and | | | | | | | Healing, | | | | | | | Building 2 | | | | | | | [place], [place] | | | | | | | [address] | | | | | | | Phone: | | | | | | | [phone] | | | | | | | Fax: | | | | | | | [phone] | + +--------+ + + + + Encounter Details +--------+---------+ + + + | Date | Type | Department | Care Team | Description | +--------+---------+ + + + | 01/06/ | Office | Digestive Health | Chetna Alves, JOEL | Morbid obesity with | | 2017 | Visit | Center at [facility] [address] | [address] | BMI of 40.0-44.9, | | | | [address] [facility] | [address] [place], | adult (HCC) (Primary | | | | for Health and | [place] [address] | Dx); Ventral hernia | | | | Healing, Building 2 | [phone] | with obstruction | | | | [place], [place] | | and without | | | | [address] | | gangrene; Borderline | | | | [phone] | | diabetes | +--------+---------+ + + + Social History [...] documented as of this encounter Progress Notes LongChetna, RD - 01/06/2018 3:00 PM PDT Referring Provider: [facility], Pre-Bariatric Surgery Evaluation Initial diet consultation prior to having Tobias-En-Y gastric bypass surgery or Sleeve Gastre ctomy. Documented Time of Visit: 3:10 until 4:00 (50 minutes [id number] with patient) SUBJECTIVE: Pt comes in alone from [facility]. Patient viewed online seminar prior to visit. [...] or dr ink water. Has been doing Tub[employer] crafts. Says she is alone a lot. 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 4. Call or send Authernative message to dietitian with any questions. Contact information was provided. Follow up with dietitian 1-2 weeks after surgery at first post-op visit. Chetna Alves RD, CNSC, LD [facility] B[facility] [phone] documented in this enco unter Plan of Treatment Not on filedocumented as of this encounter Procedures + +--------+ + + + | Procedure Name | Priori | Date/Time | Associated Diagnosis | Comments | | | ty | | | | + +--------+ + + + | WA MNT INITIAL | Routin | 01/07/2018 | Ventral hernia | | | ASSESSMNT X15MIN | e | 7:51 AM | with obstruction and | | | | | PDT | without gangrene | | | | | | Morbid obesity with | | | | | | BMI of 40.0-44.9, | | | | | | adult ([facility]) | | | | | | Borderline diabetes | | + +--------+ + + + documented in this encounter Visit Diagnoses + + | Diagnosis | + + | Morbid obesity with BMI of 40.0-44.9, adult ([facility]) - Primary | + + | 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
--- OUTSIDE RECORDS SUMMARY | ~2020-04-27 | XMS | Encounter Summary ---
Demographics + + + | Address | [address] | | | [place] [address] | + + + | Home Phone [...] [place] | | | | | [address] | | + + + + + Care Team Providers + +------+ + | Care Javascript Front End Developer Name | Role | Phone | [...] Pharmacy | | | | | | [address] | | | | | | [address] [place], [place] | | | | | | [address] | | | | | | [phone] | | | +--------+ + + + [...]
--- OUTSIDE RECORDS SUMMARY | ~2020-04-27 | XMS | Encounter Summary ---
Demographics + + + | Address | [address] | | | [place] [address] | + + + | Home Phone [...] [place] | | | | | [address] | | + + + + + Care Team Providers + +------+ + | Care Machine Repairman Name | Role | Phone | + [...] + + | 08/31/ | Hospital | [facility] [address] | Gildardo Downing, | | | 2018 - | Encounter | [address] | [address] | | | | | [place], [place] | [facility] [place] | | | 09/02/ | | [address] | [address] | | | 2017 | | [phone] | [phone] | | | | | | | [...] differen t from the original. [facility] RED SURGERY INPATIENT DISCHARGE SUMMARY Author: GAUTAM [...] We will have her follow up with [facility] Bariatric Nurse Practitioner in 1 week [...] or Kefir, Stoneyfield Yogurt, and Chioban i Tamazight Yogurt are common brands with beneficial probiotics. [...] are available over the counter at most [facility] [employer]IV[employer] stores. Nausea/Vomiting/Difficulty Swallowing Nausea/Vomiting/Difficulty swallowing: Could be [...] hours per your instructions. Some medications, like [place], have Tylenol in it. Make sure you [...] (PCP) as this clinic does not provide [facility] chronic pain management services. When [...] hours by calling the surgery office at [phone]. - After hours, weekends and holidays, you may call the hospital screen printing machine operator at [phone] an d have the specifications checker Red Surgery Team paged. Destination Home Condition [...] Acute Care Why: follow up with bariatric SPIRAL GEAR GENERATOR Contact information [address] [address] Future Appointments Provider Department Dept Phone Center 09/07/2018 10:00 AM Chetna Alves [facility] at [facility] 6th Floor [phone] KATIA D AND NUT 09/07/2018 10:50 AM Emily Martinez [facility] at [facility] 6th Floor [phone] D ig Health 09/29/2018 10:30 AM [facility] at [facility] 6th Floor [phone] F OOD AND NUT 09/29/2018 11:20 AM Gildardo Downing [facility] at [facility] 6th Floor [phone] Di g Health 11/25/2018 10:00 AM [facility] at [facility] 6th Floor [phone] FO OD AND NUT 11/25/2018 10:50 AM Shanon Etienne [facility] at [facility] 6th Floor [phone] Dig [facility] Discharging Physician: GAUTAM Leblanc Attending Physician: Gildardo Downing MD [facility] Red Surgery Pager# [phone] 10:42 AM 09/02/2018 documented in th is [...] if this helps. Gildardo Downing MD, FACS, [facility] Division of Bariatric Surgery [facility] | [address] | [place], [place] | [address] | Ludwin Tellez MD - 08/31/2018 8:54 [...] Ludwin Tellez MD General Surgery, PGY1 Pager: [phone] documented in this en counter Plan of [...] GASTRECTOMY | ve | 12:25 PM | ([facility]) | | | | Surgic | [...] results section. | | | | | ([facility]) | | + +--------+ + + [...] + + | [facility] | [address] | [place], [place] | | | CARDIOLOGY | [address] | [address] | | + + + + + [...] ABDI | [address] | [place], [place] | | | [facility] | [address] | [address] | | | TESTS | | | [...] MARQUAM | [address] | [place], [place] | | | [facility] OF CARE | [address] | [address] | | | TESTS | | | [...] SURGEON: Gildardo Downing MD. | | | BRAND EXECUTIVE: Jamie Gonzales MD R6. ANESTHESIA: Ke Strong [...] | | | Gildardo Downing MD, FACS, [facility] Bariatric Surgery | | | | | [...] SURGEON: Gildardo Downing MD. | | | BRAND EXECUTIVE: Jamie Gonzales MD R6. ANESTHESIA: Ke Strong [...] | | | Gildardo Downing MD, FACS, [facility] Bariatric Surgery | | | | | [...] MARQUAM | [address] | [place], [place] | | | CHARITO POINT OF CARE | [address] | [address] | | | TESTS | | | [...] | | | | | 2045, Until [facility] 09/01/18 at 0611, | | [...] | | | | | dose on [facility] 09/01/18 at 0900 | | | | | | + +-------+ +--------+---+---+ +---+---+ | | | +---+---+ documented in this encounter
--- OUTSIDE RECORDS SUMMARY | ~2020-04-27 | XMS | Encounter Summary ---
Demographics + + + | Address | [address] | | | [place] [address] | + + + | Home Phone [...] [place] | | | | | [address] | | + + + + + Care Team Providers + +------+ + | Care Firer Locomotive Name | Role | Phone | + [...] 2020 | Encounter | Center at [address] | MD [address] | needed | | | | [address] | [address] | | | | | Mailcode: Center | [place], [place] | | | | | for Health and | [address] | | | | | Healing, Building 2 | [phone] | | | | | [place], [place] | | | | | | [address] | | | | | | [phone] | | | +--------+ + + + [...]
--- OUTSIDE RECORDS SUMMARY | ~2020-04-27 | XMS | Encounter Summary ---
Demographics + + + | Address | [address] | | | [place] [address] | + + + | Home Phone [...] | + + + + + | St[address] | ECON | [address] | | | | | [place] | | | | | [address] | | + + + + + Care Team Providers + +------+ + | Care Reference Assistant Name | Role | Phone | [...] [facility] [address] | AGACN [address] | sleeve gastrectomy | | | | [address] | Ave [place], [place] | (Primary Dx); | | | | Mailcode: Center | [address] | Abnormal intestinal | | | | for Health and | [phone] | absorption | | | | Healing, Building 2 | | | | | | [place], [place] | | | | | | [address] | | | | | | [phone] | | | +--------+---------+ + + + [...] Please join us for our twice monthly [facility] Bariatric Support Group meetings on the Mobile-XL platform. Download the connie on your smartphone or visit the website [email or web address]. Click "join a meeting " enter the meeting number below at the scheduled time. Our monthly schedule is as follows: The Wednesday of every month at 5:30PM The Wednesday of every month at 1:00PM The meeting number is: [phone] Please note that this is an optional [...] with her boyfriend-they are driving down to [place] today from this appointme nt. She has [...] of fallopian tube Laparoscopic sleeve gastrectomy 08/31/[address] [facility] [address] Downing Social History Socioeconomic History [...] file Gets together: Not on file Attends anabaptism service: Not on file Active member of [...] to plan and will call and/or send Zhitu message if any issues. Start time 1445, end time 1510. I spent a total of 25 minutes face to face with this patie nt. Over 50% of visit was in counseling. JOSETTE Seaman Bariatric Surgery Nurse Practitioner [facility] | [address] | [place], [place] | [address] | documented in th is encounter Plan of Treatment Not on filedocumented as of this encounter Visit Diagnoses + + | Diagnosis | + + | S/P laparoscopic sleeve gastrectomy - Primary | + + | Abnormal intestinal absorption Unspecified intestinal malabsorption | + + documented in this encounter
--- OUTSIDE RECORDS SUMMARY | ~2020-04-27 | XMS | Encounter Summary ---
Demographics + + + | Address | [address] | | | [place] [address] | + + + | Home Phone [...] [place] | | | | | [address] | | + + + + + Care Team Providers + +------+ + | Care Nut Roaster Helper Name | Role | Phone | [...] | | | | | 40.0-44.9, | [place], [place] | [address] Center | | | | | adult (HCC) | [address] | for Health | | | | | Borderline | Phone: | and Healing, | | | | | diabetes | [phone] | Building 1, | | | | | Essential | Fax: | 15th Floor | | | | | hypertension | [phone] | [place], [place] | | | | | Mild | | [address] | | | | | intermittent | | Phone: | | | | | asthma | | [phone] | | | | | without | | Fax: | | | | | complication | | [phone] | | | | | Anxiety | [...] | B[facility] Surg | | | with CLINICAL DATA SPECIALIST | | obesity | Ganesh Holden MD | [address] | | | | | (HCC) | [address] | | | | | Procedures | [address] | Mailcode: | | | | | CONSULT TO | Shahla Maldonado | [place] for | | | | | BARIATRIC | [place], [place] | [facility] and | | | | | SURGERY | [address] | Healing, | | | | | | | Building 2 | | | | | | | [place], [place] | | | | | | | [address] | | | | | | | Phone: | | | | | | | [phone] | | | | | | | Fax: | | | | | | | [phone] | + + + + + + [...] | | [address] | Ave [place], [place] | adult (HCC) (Primary | | | | Mailcode: Center | [address] | Dx); Borderline | | | | for Health and | [phone] | diabetes; Essential | | | | Healing, Building 2 | | hypertension; Mild | | | | [place], [place] | | intermittent asthma | | | | [address] | | without | | | | [phone] | | complication; | | | | [...] diabetes 2. HTN takes atenolol, BP elevated qhwle=492/95 3. Ventral hernia with MESH 4. Hx [...] to your private appointme nt with the machining supervisor. These classes will be scheduled apporoximately 1 [...] Psychological Evaluation: If your referral is at [facility], The Pain Management Office will call [...] then schedule with the surgeon. Yumiko APPIAH HAIR CLIPPER POWER Bariatric Surgery Nurse Practitioner [facility] | [address] | [place], [place] | [address] | Potential Contraindications to Bariatric Surgery Age [...] other providers does not guarantee that the [facility] Bariatric Surger y program will deem you a surgical candidate. documented in this encounter Progress Notes Yumiko Clarke ACNP - 01/06/2018 2:05 PM PDTFormatting of this note might be different fr om the original. BARIATRIC INITIAL VISIT Provider: Yumiko APPIAH HAIR CLIPPER POWER Referring Provider: Aleshia Martinez PA-C Reason for [...] diet attempts at age 18 Personally initiated diets:TelnexusK Programmatic diets: TelnexusK Physician Monitored diet: UNK Use of Redux or Phen/fen: yes, phentermine but doesn't like side effects Transthoracic ECHO: no Faith or cultural reason you would refuse blood [...] of lower extremity edema, hyperlipidemia. No CHF, [place], ischemic heart disease, DVT/PE, or pulmonary hypertension. [...] diabetes 2. HTN takes atenolol, BP elevated tysvh=439/95 3. Ventral hernia with MESH 4. Hx [...] to your private appointme nt with the machining supervisor. These classes will be scheduled apporoximately 1 [...] Psychological Evaluation: If your referral is at [facility], The Pain Management Office will call [...] with the surgeon. Yumiko Clarke DNP ACNP HAIR CLIPPER POWER Bariatric Surgery Nurse Practitioner [facility] | [address] | [place], [place] | [address] | Potential Contraindications to Bariatric Surgery Age [...] other providers does not guarantee that the [facility] Bariatric Surger y program will deem [...] | + + + + + | [facility] | [address] | [place] [address] | | | KUSH CORCORAN | SHAHLA [...] | [facility] | | considered for monitoring long term care pharmacist glycemic control in patients with: | LABORATORY [...] | + + + + + | [facility] | [address] | [place] [address] | | | SERVICES, SPECIAL | SHAHLA [...] | | | | | determined by [employer] | | | | | | Laboratories. See | | | | | | Compliance Statement B: | | | | | | [employer].[email or web address] | | | | | | by [address] | | | | | | [facility] | | | | | | [address] | | | | | | [phone].[employer]. | | | | | | [facility], Gerardo Esquivel MD, | | | [...] [facility] | [address] | [place], [place] | | | [facility] | | [address] | | + + + + + [...] | | | LABORATORY | | | AZERBAIJANI | | | SERVICES, | | | [...] [facility] | [address] | [place] [address] | | | SERVICES, CORE | PARK [...] [facility] | [address] | [place] [address] | | | SERVICES, CORE | PARK [...] | + + + + + | [facility] | [address] | [place] [address] | | | SERVICES, CORE | PARK [...] and | 50 - 200 ng/mL | [facility] | | | | Female >18 years: [...] | + + + + + | [facility] | [address] | [place] [address] | | | KUSH CORCORAN | SHAHLA [...] | + + + + + | [facility] | [address] | [place] [address] | | | SERVICES, CORE | SHAHLA [...] | + + + + + | [facility] | [address] | [place] [address] | | | SERVICES, CORE | SHAHLA [...] | + + + + + | [facility] | [address] | [place] [address] | | | SERVICES, CORE | SHAHLA [...] + + | [facility] | [address] | [place], [place] | | | CARDIOLOGY | [address] | [address] | | + + + + + [...]
--- OUTSIDE RECORDS SUMMARY | ~2020-04-27 | XMS | Encounter Summary ---
Demographics + + + | Address | [address] | | | [place] [address] | + + + | Home Phone [...] [place] | | | | | [address] | | + + + + + Care Team Providers + +------+ + | Care Pin Feather Machine Operator Name | Role | Phone [...] Pharmacy | | | | | | [address] | | | | | | [place] | | | | | | [address] | | | | | | [phone] | | | +--------+ + + + [...]
--- OUTSIDE RECORDS SUMMARY | ~2020-04-27 | XMS | Encounter Summary ---
Demographics + + + | Address | [address] | | | [place] [address] | + + + | Home Phone [...] [place] | | | | | [address] | | + + + + + Care Team Providers + +------+ + | Care Cyber Incident Analyst Name | Role | Phone | [...] 2018 | | Center at [facility] [address] | MD [address] | sided near | | | | [address] | [place], [place] | incision) | | | | Mailcode: Center | [address] | | | | | for Health and | [phone] | | | | | [facility] 2 | | | | | | [place], [place] | | | | | | [address] | | | | | | [phone] | | | +--------+ + + + [...]
--- OUTSIDE RECORDS SUMMARY | ~2020-04-27 | XMS | Encounter Summary ---
Demographics + + + | Address | [address] | | | [place] [address] | + + + | Home Phone [...] [place] | | | | | [address] | | + + + + + Care Team Providers + +------+ + | Care Small Business Consultant Name | Role | Phone | + +------+ + | Aleshia Martinez PA-C | PCP | | + +------+ + Encounter Details +--------+--------+ + + + | Date | Type | Department | Care Team | Description | +--------+--------+ + + + | 09/22/ | Travel | | | | | 2018 | | | | | +--------+--------+ + [...]
--- OUTSIDE RECORDS SUMMARY | ~2020-04-27 | XMS | Encounter Summary ---
Demographics + + + | Address | [address] | | | [place] [address] | + + + | Home Phone [...] [place] | | | | | [address] | | + + + + + Care Team Providers + +------+ + | Care Air Crew Officer Name | Role | Phone | [...] 2018 | Visit | Center at [facility] [address] | MD [address] | surgery (Primary | | | | [address] | [facility] [place] | Dx); S/P | | | | Mailcode: Center | [address] | laparoscopic sleeve | | | | for Health and | [phone] | gastrectomy | | | | Healing, Building 2 | | | | | | [place], [place] | | | | | | [address] | | | | | | [phone] | | | +--------+---------+ + + + [...] can be adjusted. Please visit with our Carpenter Supervisor (RD) for instructions about your Bariatric diet, assistance with calorie counts, tips and tricks for working with your diet restrictions, an d recipes after bariatric surgery. Daily yogurt; even just 1 tablespoon twice a day will provide enough probiotics to optimize digestion. Try to use a high-quality, probiotic-dense yogurt (eg Marielena's, Stoneyfield, Lif eway Kefir, Coil Connector Repairer Dom's Panamanian Yogurt). Remember to chew your food well, [...] GILDARDO DOWNING MD. Division of Bariatric Surgery [facility] | [address] | [place], [place] | [address] | documented in this en counter Plan of Treatment Not on filedocumented as of this encounter Visit Diagnoses + + | Diagnosis | + + | Aftercare following surgery - Primary Encounter for other specified aftercare | + + | S/P laparoscopic sleeve gastrectomy | + + documented in this encounter
--- OUTSIDE RECORDS SUMMARY | ~2020-04-27 | XMS | Encounter Summary ---
Demographics + + + | Address | [address] | | | [place] [address] | + + + | Home Phone [...] [place] | | | | | [address] | | + + + + + Care Team Providers + +------+ + | Care Actuarial Science Professor Name | Role | Phone | + +------+ + | Aleshia Martinez PA-C | PCP | | + +------+ + Reason for Visit +--------+ + | Reason | Comments | +--------+ + | Other | Patient seen in [facility] | +--------+ + Encounter Details +--------+ + + + + | Date | Type | Department | Care Team | Description | +--------+ + + + + | 01/28/ | Telephone | Digestive Health | ClarkeRolandi, | Other (Patient seen | | 2018 | | Center at [facility] [address] | ACNP [address] | in [place]) | | | | [address] | Ave [place], [place] | | | | | Mailcode: Center | [address] | | | | | for Health and | [phone] | | | | | [place] [address] | | | | | | [place], [place] | | | | | | [address] | | | | | | [phone] | | | +--------+ + + + [...]
--- OUTSIDE RECORDS SUMMARY | ~2020-04-27 | XMS | Encounter Summary ---
Demographics + + + | Address | [address] | | | [place] [address] | + + + | Home Phone [...] [place] | | | | | [address] | | + + + + + Care Team Providers + +------+ + | Care Community Service Officer Coordinator Name | Role | Phone | [...] floor | | | | | | [place], [place] | | | | | | [address] | | | +--------+ + + + [...]
--- OUTSIDE RECORDS SUMMARY | ~2020-04-27 | XMS | Encounter Summary ---
Demographics + + + | Address | [address] | | | [place] [address] | + + + | Home Phone [...] [place] | | | | | [address] | | + + + + + Care Team Providers + +------+ + | Care Hogshead Mat Inspector Name | Role | Phone | [...] | 2018 | on | Center at [place] [address] | | | | | | [address] | | | | | | Mailcode: Center | | | | | | for Health and | | | | | | Healing, Building 2 | | | | | | [place], [place] | | | | | | [address] | | | | | | [phone] | | | +--------+ + + + [...]
--- OUTSIDE RECORDS SUMMARY | ~2020-04-27 | XMS | Encounter Summary ---
Demographics + + + | Address | [address] | | | [place] [address] | + + + | Home Phone [...] [place] | | | | | [address] | | + + + + + Care Team Providers + +------+ + | Care Chief Credit Officer Name | Role | Phone | [...] the | | 2019 | Encounter | [place] [facility] [address] | MD [address] | hernia | | | | [address] | [address] | | | | | Mailcode: Center | [place], [place] | | | | | for Health and | [address] | | | | | [facility], Building 2 | [phone] | | | | | [place], [place] | | | | | | [address] | | | | | | [phone] | | | +--------+ + + + [...]
--- OUTSIDE RECORDS SUMMARY | ~2020-04-27 | XMS | Encounter Summary ---
Demographics + + + | Address | [address] | | | [place] [address] | + + + | Home Phone [...] [place] | | | | | [address] | | + + + + + Care Team Providers + +------+ + | Care Hedis Specialist Name | Role | Phone | [...] | | 2017 | | Center at [facility] 06[address] | | Bariatric Surgery | | | | [address] | | | | | | Mailcode: Center | | | | | | for Health and | | | | | | [facility], Building 2 | | | | | | [place], [place] | | | | | | [address] | | | | | | [phone] | | | +--------+ + + + [...]
--- OUTSIDE RECORDS SUMMARY | ~2020-04-27 | XMS | Encounter Summary ---
Demographics + + + | Address | [address] | | | [place] [address] | + + + | Home Phone [...] [place] | | | | | [address] | | + + + + + Care Team Providers + +------+ + | Care Bone Char Kiln Operator Name | Role | Phone | [...] Encounter | Center at [facility] 6338 | | insurance plan for | | | | [address] | | surgery | | | | Mailcode: Center | | | | | | for Health and | | | | | | Healing, Building 2 | | | | | | [place], [place] | | | | | | [address] | | | | | | [phone] | | | +--------+ + + + [...]
--- OUTSIDE RECORDS SUMMARY | ~2020-04-27 | XMS | Encounter Summary ---
Demographics + + + | Address | [address] | | | [place] [address] | + + + | Home Phone [...] [place] | | | | | [address] | | + + + + + Care Team Providers + +------+ + | Care Esthetician And Manager Medical Spa Name | Role | Phone | + [...]
--- OUTSIDE RECORDS SUMMARY | ~2020-04-27 | XMS | Encounter Summary ---
Demographics + + + | Address | [address] | | | [place] [address] | + + + | Home Phone [...] [place] | | | | | [address] | | + + + + + Care Team Providers + +------+ + | Care Health Care Facilities Inspector Name | Role | Phone | + +------+ + | Aleshia Martinez PA-C | PCP | | + +------+ + Encounter Details +--------+ + + + + | Date | Type | Department | Care Team | Description | +--------+ + + + + | 08/31/ | Lab | LAB CORE [address] | | | | 2018 | Requisition | [address] | | | | | | [place] | | | | | | [address] | | | | | | [phone] | | | +--------+ + + + [...] | + + + + + | [facility] | [address] | [place] [address] | | | SERVICES, CORE | SHAHLA [...] [facility] | [address] | [place] [address] | | | SERVICES, CORE | [address]ARK [...] C[facility]Y [facility] | [address] | [place] [address] | | | SERVICES, CORE | SHAHLA MALDONADO | | | + + + + + documented in this encounter Visit Diagnoses Not on filedocumented in this encounter"
--- OUTSIDE RECORDS SUMMARY | ~2020-04-27 | XMS | Encounter Summary ---
Demographics + + + | Address | [address] | | | [place] [address] | + + + | Home Phone [...] [place] | | | | | [address] | | + + + + + Care Team Providers + +------+ + | Care Winding Operator Name | Role | Phone | [...] | 2019 | Encounter | Center at [facility] [address]60 | AGACNP [address] | | | | | [address] | Ave [place], [place] | | | | | Mailcode: Center | [address] | | | | | for Health and | [phone] | | | | | Healing, Building 2 | | | | | | [place], [place] | | | | | | [address] | | | | | | [phone] | | | +--------+ + + + [...]
--- OUTSIDE RECORDS SUMMARY | ~2020-04-27 | XMS | Encounter Summary ---
Demographics + + + | Address | [address] | | | [place] [address] | + + + | Home Phone [...] [place] | | | | | [address] | | + + + + + Care Team Providers + +------+ + | Care Documentation Writer Name | Role | Phone | + [...] + + | 09/22/ | Hospital | [address] | [place], | | | 2019 - | Encounter | [address] | MD Bryson [address] | | | | | [place], [place] | [address] | | | 09/25/ | | [address] | [place], [place] | | | 2019 | | [phone] | [address] | | | | | | [phone] | | | | | | | [...] might b e different from the original. [facility] - GREEN SURGERY TEAM INPATIENT DISCHARGE SUMMARY Author: Shayne Laguerre DNP AGACNP-BC Attending Physician: Bryson Ireland MD PCP: Aleshia Martinez PA-C Admission Date: 09/22/2019 Discharge Date: 09/25/2019 Diagnosis: Recurrent incarcerated incisional ventral hernia. Procedure: 1.Exploratory laparotomy. 2.Excision of prior hernia mesh t3nloecbdg pieces.2.5 hours spent exc ising mesh including [...] WWP Outstanding labs/studies: None Discharging Provider[facility] Attending Physician: MD [facility]ay[facility]cdonough [facility] Pager# [phone] 9:06 AM 09/25/2019 Vega colunga in this [...] hours by calling the surgery office at [phone]. After hours, weekends and holidays, you may call the hospital flat lock machine operator at [phone] and have the cushion assembler [place] Team for general surgery paged. Discharge Instr [...] every 4-6 hours. Tylenol: You may use gvpt-ahi-rzdkzoy (OTC) acetaminophen (Tylenol) for milder pain. Do [...] medications with Hydrocodone such as Vicodin or [place]. It is important to keep track of [...] PSTAfter Visit Summary Signature Electronically signed by: GATUAM Cool, 09/25/2019 at 9:06 AMElectr onically signed [...] out a dark red color and becomes spiritual counselor and eventually a straw color. * Wash [...] removal. If you live ou t of [facility], we will plan to talk with [...] incarcerated incisional hernia s/p repair. -transition from MOLD FILLER to orals -continue drain. #low UOP -resolving, saline lock -remove stafford Dispo: likely 3 days total inpatient. HILDA CHUA MD General Surgery [facility]ina[facility]ilda garcia MD - 09/23/2019 8:56 AM PSTDEPARTMENT OF SURGERY [place] [facility] Admission Date: 09/22/2019 ( LOS: 1 [...] #Recurrent incarcerated incisional hernia s/p repair. -continue MOLD FILLER and stafford until tomorrow -continue drain. #low [...] [facility] | [address] | [place] [address] | | | SERVICES, CORE | PARK [...] [facility] | [address] | [place] [address] | | | SERVICES, CORE | PARK [...] MDRD equation recommended by the National | [facility] | | Kidney Disease Education Program. Estimated [...] | + + + + + | [facility] | [address] | [place] [address] | | | NILO, KUSH | SHAHLA [...] [facility] | [address] | [place] [address] | | | SERVICES, CORE | PARK [...] - [facility] | [address] | [place], [place] | | | HERO MCNEILL OF CARE | [address] | [address] | | | TESTS | | | [...] [facility] | [address] | [place], [place] | | | [facility] OF [facility] | [address] | [address] | | | TESTS | | | | + + + + + INTRAPROCEDURE IMAGING (09/22/2019 10:23 AM [facility]) + + | Specimen | + [...] [facility] | [address] | [place], [place] | | | CHARITO ETLAN OF [facility] | [address] | [address] | | | TESTS | | | [...] + + +---+---+---+ | HYDROmorphone 0.5 mg/mL MOLD FILLER | Rate/Dos | 09/24/20 | | | | | (ADULT STANDARD DOSE) in 0.9 % | e Verify | 19 7:30 | | | | | NaCl MOLD FILLER Dose: 0.5 mg, Lockout | | AM [...] mg | | | | bolus from MOLD FILLER (ADULT STANDARD | from | 19 8:00 | | | | | DOSE) 0.2 mg intravenous, EVERY | Same Bag | PM PST | | | | | 10 MINUTES NEEDED, Starting | | | | | | | 09/22/19 at 1611, Until Sun | | | | | | | 09/24/19 at 0723, MOLD FILLER clinician | | | | | | | rescue bolus. If exceeding 2 | | | | | | | doses in a rolling 60 minute time | | | | | | | frame, contact provider for MOLD FILLER | | | | | | | [...]
--- OUTSIDE RECORDS SUMMARY | ~2020-04-27 | XMS | Encounter Summary ---
Demographics + + + | Address | [address] | | | [place] [address] | + + + | Home Phone [...] [place] | | | | | [address] | | + + + + + Care Team Providers + +------+ + | Care Set Making Machine Operator Name | Role | [...] floor | | | | | | [place], [place] | | | | | | [address] | | | +--------+ + + + [...]
--- OUTSIDE RECORDS SUMMARY | ~2020-04-27 | XMS | Encounter Summary ---
Demographics + + + | Address | [address] | | | [place] [address] | + + + | Home Phone [...] [place] | | | | | [address] | | + + + + + Care Team Providers + +------+ + | Care Banking Pin Adjuster Name | Role | Phone | + [...] evaluation | | 2018 | cheduled | [facility] | | | | | | MPV | | | | | | Stay [address] | | | | | | [address] | | | | | | Mailcode: [id number] | | | | | | [facility] | | | | | | [address] [place], [place] | | | | | | [address] | | | | | | [phone] | | | +--------+ + + + [...] perfume, lotions or powder. Remove any nail wolof from at least one fingernail. Do not [...] your procedure. Surgery Check in Locations Admitting [facility] Surgery Check in Time: Someone from your surgeon's office or [facility] will provide you with information regarding your [...] it is after office hours, call the [facility] rug underlay machine operator at [phone] and ask them to page your doc tor. documented in this encounter Plan of Treatment Not on filedocumented as of this encounter Visit Diagnoses Not on filedocumented in this encounter"
--- OUTSIDE RECORDS SUMMARY | ~2020-04-27 | XMS | Encounter Summary ---
Demographics + + + | Address | [address] | | | [place] [address] | + + + | Home Phone [...] [place] | | | | | [address] | | + + + + + Care Team Providers + +------+ + | Care Focusing Machine Operator Name | Role | Phone [...] | on | Center at [facility] [address] | | | | | | [address] | | | | | | Mailcode: Center | | | | | | for Health and | | | | | | Healing, Building 2 | | | | | | [place], [place] | | | | | | [address] | | | | | | [phone] | | | +--------+ + + + [...]
--- OUTSIDE RECORDS SUMMARY | ~2020-04-27 | XMS | Encounter Summary ---
Demographics + + + | Address | [address] | | | [place] [address] | + + + | Home Phone [...] [place] | | | | | [address] | | + + + + + Care Team Providers + +------+ + | Care Antenna Design Engineer Name | Role | Phone | [...] 2019 | | Center at [facility] [address] | MD [address] | | | | | [address] | [place], [place] | | | | | Mailcode: [place] | [address] | | | | | for Health and | | | | | | [place] [address] | | | | | | [place], [place] | | | | | | [address] | | | | | | | [...]
--- OUTSIDE RECORDS SUMMARY | ~2020-04-27 | XMS | Encounter Summary ---
Demographics + + + | Address | [address] | | | [place] [address] | + + + | Home Phone [...] [place] | | | | | [address] | | + + + + + Care Team Providers + +------+ + | Care Negative Retoucher Name | Role | Phone | [...] | | | [address] | [place], [place] | | | | | Mailcode: [place] | [address] | | | | | for Health and | [phone] | | | | | [facility], [place] [address] | | | | | | [facility] [place] | | | | | | [address] | | | | | | [phone] | | | +--------+ + + + [...]
--- OUTSIDE RECORDS SUMMARY | ~2020-04-27 | XMS | Encounter Summary ---
Demographics + + + | Address | [address] | | | [place] [address] | + + + | Home Phone [...] [place] | | | | | [address] | | + + + + + Care Team Providers + +------+ + | Care Commissioner Of Officials Name | Role | Phone | + +------+ + | Aleshia Martinez PA-C | PCP | | + +------+ + Encounter Details +--------+------+ + + + | Date | Type | Department | Care Team | Description | +--------+------+ + + + | 01/06/ | Lab | Laboratory at [facility] | | Morbid obesity with | | 2017 | | [address] | | BMI of 40.0-44.9, | | | | [place], [place] | | adult (HCC); | | | | [address] | | Borderline diabetes; | | | | 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 | | | | | ([facility]) Borderline | | | | | | [...] [facility] | [address] | [place] [address] | | | SERVICES, CORE | PARK [...] + + + | [facility] | [address] | [place] [address] | | | SERVICES, CORE | SHAHLA [...] | [facility] | | considered for monitoring retirement glycemic control in patients with: | LABORATORY [...] + + | [facility] | [address] | [place] [address] | | | SERVICES, SPECIAL | PARK [...] [facility] | | | | | | Bridj. See | | | | | | Compliance Statement B: | | | | | | [employer] Community.[employer]/CSPerformed | | | | | | by [employer],[address] | | | | | | Yamil Winter, [facility] | | | | | | [address] | | | | | | [phone].Kin Community. | | | | | | [facility], Gerardo Esquivel MD, | | [...] [facility] | [address] | [place], [place] | | | UN[facility] P[facility] - INT[facility] | | [address] | | + + + + + [...] | | | LABORATORY | | | BRAZILIAN | | | SERVICES, | | | [...] [facility] | [address] | [place] [address] | | | SERVICES, CORE | PARK [...] [facility] | [address] | [place] [address] | | | NILO, KUSH | PARK [...] [facility] | [address] | [place] [address] | | | SERVICES, CORE | PARK [...] | + + + + + | [facility] [employer] | [address] | [place] [address] | | | SERVICES, CORE | SHAHLA [...] + + | [facility] | [address] | [place] [address] | | | SERVICES, CORE | PARK [...] [facility] | [address] | [place] [address] | | | SERVICES, CORE | PARK [...] + + + + + | [facility] | [address] | [place] [address] | | | SERVICES, CORE | SHAHLA [...]
--- OUTSIDE RECORDS SUMMARY | ~2020-04-27 | XMS | Encounter Summary ---
Demographics + + + | Address | [address] | | | [place] [address] [...] [place] | | | | | [address] | | + + + + + Care Team Providers + +------+ + | Care Tunnel Mucker Name | Role | Phone | + +------+ + | Aleshia Martinez PA-C | PCP | | + +------+ + Encounter Details +--------+ + + + + | Date | Type | Department | Care Team | Description | +--------+ + + + + | 06/23/ | Abstract | Digestive Health | Clinic, Surgery | | | 2017 | | [place] at [facility] [address] | | | | | | [address] | | | | | | Mailcode: [place] | | | | | | for Health and | | | | | | Healing, Building 2 | | | | | | [place], [place] | | | | | | [address] | | | | | | [phone] | | | +--------+ + + + [...]
--- OUTSIDE RECORDS SUMMARY | ~2020-04-27 | XMS | Encounter Summary ---
Demographics + + + | Address | [address] | | | [place] [address] | + + + | Home Phone [...] [place] | | | | | [address] | | + + + + + Care Team Providers + +------+ + | Care Brand Activation Manager Name | Role | Phone | [...] 2018 | Encounter | Center at [facility] [address] | ACNP [address] | | | | | [address] | Ave [place], [place] | | | | | Mailcode: Center | [address] | | | | | for Health and | [phone] | | | | | Healing, Building [address] | | | | | | [place], [place] | | | | | | [address] | | | | | | [phone] | | | +--------+ + + + [...]
--- OUTSIDE RECORDS SUMMARY | ~2020-04-27 | XMS | Encounter Summary ---
Demographics + + + | Address | [address] | | | [place] [address] | + + + | Home Phone [...] [place] | | | | | [address] | | + + + + + Care Team Providers + +------+ + | Care Speeder Operator Name | Role | Phone | + +------+ + | Aleshia Martinez PA-C | PCP | | + +------+ + Encounter Details +--------+ + + + + | Date | Type | Department | Care Team | Description | +--------+ + + + + | 01/28/ | Abstract | Digestive Health | Clinic, Surgery | | | 2017 | | [place] at [facility] [address] | | | | | | [address] | | | | | | Mailcode: [place] | | | | | | for Health and | | | | | | Healing, Building [address] | | | | | | [place], [place] | | | | | | [address] | | | | | | [phone] | | | +--------+ + + + [...]
--- OUTSIDE RECORDS SUMMARY | ~2020-04-27 | XMS | Encounter Summary ---
Demographics + + + | Address | [address] | | | [place] [address] | + + + | Home Phone [...] [place] | | | | | [address] | | + + + + + Care Team Providers + +------+ + | Care Beach Lifeguard Name | Role | Phone | + [...] | 2017 | Visit | Center at [facility] [address] | | body mass index of | | | | [address] | | 40.0-44.9 in adult | | | | Mailcode: Center | | ([facility]) (Primary Dx) | | | | for Health and | | | | | | [facility] 2 | | | | | | [place], [place] | | | | | | [address] | | | | | | [phone] | | | +--------+---------+ + + + [...] of Class: 2:00/3:00 until 3:00/4:00 (60 minutes smwy-qw-xcxu with patient) OBJECTIVE: Height: Ht Readings from [...] sharing information. Yes Carmen Dumont RD,[place] Pager# [phone] Phone: [phone] documented in this en counter Plan of Treatment Not on filedocumented as of this encounter Visit Diagnoses + + | Diagnosis | + + | Morbid obesity with body mass index of 40.0-44.9 in adult (HCC) - Primary | + + documented in this encounter
--- OUTSIDE RECORDS SUMMARY | ~2020-04-27 | XMS | Encounter Summary ---
Demographics + + + | Address | [address] | | | [place] [address] | + + + | Home Phone [...] [place] | | | | | [address] | | + + + + + Care Team Providers + +------+ + | Care Privacy Compliance Manager Name | Role | Phone | [...] | 2017 | Visit | Center at [facility] [address] | | BMI of 40.0-44.9, | | | | [address] | | adult (HCC) (Primary | | | | Mailcode: Center | | Dx) | | | | for Health and | | | | | | [facility], Building 2 | | | | | | [place], [place] | | | | | | [address] | | | | | | [phone] | | | +--------+---------+ + + + [...] of Class: 2:00/3:00 until 3:00/4:00 (60 minutes ilts-ag-lvlj with patient) OBJECTIVE: Height: Ht Readings from [...] or sharing information. Yes Chetna Alves RD, [facility] Bariatrics [phone] documented in this enco unter Plan of Treatment Not on filedocumented as of this encounter Visit Diagnoses + + | Diagnosis | + + | Morbid obesity with BMI of 40.0-44.9, adult (HCC) - Primary | + + documented in this encounter
--- OUTSIDE RECORDS SUMMARY | ~2020-04-27 | XMS | Encounter Summary ---
Demographics + + + | Address | [address] | | | [place] [address] | + + + | Home Phone [...] [place] | | | | | [address] | | + + + + + Care Team Providers + +------+ + | Care Tinner Helper Name | Role | Phone | [...] 2018 | on | Center at [facility] [address] | ACNP [address] | | | | | [address] | Ave [place], [place] | | | | | Mailcode: Center | [address] | | | | | for Health and | [phone] | | | | | Healing, Building [address] | | | | | | [place], [place] | | | | | | [address] | | | | | | [phone] | | | +--------+ + + + [...]
--- OUTSIDE RECORDS SUMMARY | ~2020-04-27 | XMS | Encounter Summary ---
Demographics + + + | Address | [address] | | | [place] [address] | + + + | Home Phone [...] [place] | | | | | [address] | | + + + + + Care Team Providers + +------+ + | Care Slurry Tank Operator Name | Role | Phone | [...] | Sports | Diagnoses | Perez | Zzhsm | | | | Medicine | Morbid | Krystle | Faculty Ppv | | | | | obesity | Ganesh Holden MD | [address] | | | | | ([facility]) | [address] | | | | | Procedures | Alonso Regan | Physician's | | | | | CONSULT TO | Jessica Sepulveda | [place], | | | | | HEALTH | [place], [place] | [facility] floor | | | | | PROMOTION & | [address] | [place], [place] | | | | | SPORTS | | [address] | | | | | MEDICINE | | Phone: | | | | | PROVIDER | | [phone] | | | | | | | Fax: | | | | | | | [phone] | +--------+--------+ + + + + Consultation [...] | Bariatri Surg | | | with CROSS COUNTRY TRUCK DRIVER | | obesity | Ganesh Holden MD | [facility] [address] | | | | | ([facility]) | [address] | [address] | | | | | Procedures | Alonso Regan | Mailcode: | | | | | CONSULT TO | Jessica Sepulveda | Center for | | | | | BARIATRIC | [place], [place] | [facility] and | | | | | SURGERY | [address] | Healing, | | | | | | | Building 2 | | | | | | | [place], [place] | | | | | | | [address] | | | | | | | Phone: | | | | | | | [phone] | | | | | | | Fax: | | | | | | | [phone] | + + + + + + [...] | | | | hernia | | [address] | | | | | without | | Ave | | | | | obstruction | | Mailcode: | | | | | or gangrene | | [place] for | | | | | | | Health and | | | | | | | Healing, | | | | | | | Building 2 | | | | | | | [facility] [place] | | | | | | | [address] | | | | | | | Phone: | | | | | | | [phone] | | | | | | | Fax: | | | | | | | [phone] | +--------+--------+ + + + + Encounter [...] | | | [address] | [place], [place] | | | | | Mailcode: [place] | [address] | | | | | for Health and | [phone] | | | | | Healing, Building [address] | | | | | | [place], [place] | | | | | | [address] | | | | | | [phone] | | | +--------+---------+ + + + [...] routine activity as tolerated. Es Bingham MD, MCR, FACS ES BINGHAM MD [facility] 6TH FLOOR [address] Mailcode: [place] [address] Se cesar Boswell MD - 08/18/2017 12:30 PM PDTFormatting of this note might be different from the [facility] Department of Surgery Blue Surgery H&P [...] her risk of complications is 35% (per [email or web address] connie). She is interested to talk to [...] constipation -referral with bariatric program -referral to clinical services assistant -RTC once she has lost weight The above findings and plan were discussed with Dr. Bingham, who agrees. Ganesh Perez MD Minimally Invasive Surgery Fellow [facility] [place] Pager [phone] documente d in this encounter Plan of Treatment Not on filedocumented as of this encounter Visit Diagnoses + + | Diagnosis | + + | Morbid obesity (HCC) - Primary Morbid obesity | + + documented in this encounter
--- OUTSIDE RECORDS SUMMARY | ~2020-04-27 | XMS | Encounter Summary ---
Demographics + + + | Address | [address] | | | [place] [address] | + + + | Home Phone [...] [place] | | | | | [address] | | + + + + + Care Team Providers + +------+ + | Care It Systems Analyst Consultant Name | Role | Phone | [...] | | 2018 | | Center at [facility] [address] | [address] | ) | | | | [address] | [place], [place] | | | | | Mailcode: [place] | [address] | | | | | for Health and | [phone] | | | | | [place] [address] | | | | | | [place], [place] | | | | | | [address] | | | | | | [phone] | | | +--------+ + + + [...]
--- OUTSIDE RECORDS SUMMARY | ~2020-04-27 | XMS | Encounter Summary ---
Demographics + + + | Address | [address] | | | [place] [address] | + + + | Home Phone [...] [place] | | | | | [address] | | + + + + + Care Team Providers + +------+ + | Care Truck Engine Assembler Name | Role | Phone | [...] Ave | | | | | ([facility]) | [address] | Mailcode: | | | | | Procedures | Monica | [address] | | | | | PHYSICAL | [place] | for Health | | | | | THERAPY | [address] | and Healing, | | | | | REFERRAL | Phone: | Building 1, | | | | | | | [address] Floor | | | | | | Fax: | [place], [place] | | | | | | [phone] | [address] | | | | | | | Phone: | | | | | | | [phone] | | | | | | | Fax: | | | | | | | [phone] | +--------+--------+ + + + + Encounter Details +--------+ + + + + | Date | Type | Department | Care Team | Description | +--------+ + + + + | 10/27/ | Patient Financial Services Coordinator | Digestive Health | Marta Simmons, | Morbid obesity (HCC) | | 2018 | | Center at [facility] [address] | AGACNP [address] | (Primary Dx) | | | | [address] | Ave [place], [place] | | | | | Mailcode: Center | [address] | | | | | for Health and | | | | | | Healing, Building 2 | | | | | | [place], [place] | | | | | | [address] | | | | | | [phone] | | | +--------+ + + + [...]
--- OUTSIDE RECORDS SUMMARY | ~2020-04-27 | XMS | Encounter Summary ---
Demographics + + + | Address | [address] | | | [place] [address] | + + + | Home Phone [...] [place] | | | | | [address] | | + + + + + Care Team Providers + +------+ + | Care Field Artillery Targeting Technician Name | Role | Phone | [...]
--- OUTSIDE RECORDS SUMMARY | ~2020-04-27 | XMS | Encounter Summary ---
Demographics + + + | Address | [address] | | | [place] [address] | + + + | Home Phone [...] [place] | | | | | [address] | | + + + + + Care Team Providers + +------+ + | Care Data Modeler Name | Role | Phone | + +------+ + | Aleshia Martinez PA-C | PCP | | + +------+ + Encounter Details +--------+ + + + + | Date | Type | Department | Care Team | Description | +--------+ + + + + | 09/05/ | Telephone | Digestive Health | Gildardo Downing, | | | 2017 | | Center at [facility] [address] | [address] | | | | | [address] | [place], [place] | | | | | Mailcode: Center | [address] | | | | | for Health and | [phone] | | | | | [facility], Building 2 | | | | | | [place], [place] | | | | | | [address] | | | | | | [phone] | | | +--------+ + + + [...]
--- OUTSIDE RECORDS SUMMARY | ~2020-04-27 | XMS | Encounter Summary ---
Demographics + + + | Address | [address] | | | [place] [address] | + + + | Home Phone [...] [place] | | | | | [address] | | + + + + + Care Team Providers + +------+ + | Care Director Card Name | Role | Phone | + [...] 2019 | Visit | Center at [facility] [address] | MD Yann [address] | hernia (Primary Dx); | | | | [address] | [address] | Abnormal intestinal | | | | Mailcode: Center | [place], [place] | absorption; Vitamin | | | | for Health and | [address] | D deficiency; S/P | | | | Healing, Building 2 | [phone] | laparoscopic sleeve | | | | [place], [place] | | gastrectomy; H/O | | | | [address] | | bariatric surgery; | | | | [phone] | | Postop check | +--------+---------+ + [...] laparotomy. 2. Excision of prior hernia mesh i2yolbccjb pieces.2.5 hours spent excising mesh includ ing [...] ed by Severino Mcclain. YANN IRELAND MD [facility] AT [facility] [address] [facility] [place]: [place] [address] documented in this encounter Plan [...]
--- OUTSIDE RECORDS SUMMARY | ~2020-04-27 | XMS | Encounter Summary ---
Demographics + + + | Address | [address] | | | [place] [address] | + + + | Home Phone [...] [place] | | | | | [address] | | + + + + + Care Team Providers + +------+ + | Care Hollow Ware Maker Name | Role | Phone | [...] | | | | | | | [place], [place] | | | | | | | [address] | | | | | | | Phone: | | | | | | | [phone] | | | | | | | Fax: | | | | | | | [phone] | + +--------+ + + + + Encounter Details +--------+---------+ + + + | Date | Type | Department | Care Team | Description | +--------+---------+ + + + | 09/29/ | Office | Digestive Health | Tea Reece, | S/P laparoscopic | | 2018 | Visit | Center at [facility] [address] | [address] [facility] | sleeve gastrectomy | | | | [address] [facility] | [address] | (Primary Dx) | | | | for Health and | [place] | | | | | [facility] 2 | [address] | | | | | [place], [place] | | | | | | [address] | | | | | | [phone] | | | +--------+---------+ + + + [...] of visit: 10:42am to 11:08am (26 minutes cotj-yr-kdez with patient) Surgery: Sleeve Gastrectomy Date of [...] multivitamin & mineral (with iron) supplement, 2/day -2724-7043 mg calcium citrate with vitamin D/day (take in divided doses, not within 2 hour s of multivitamin or iron supplement) -500 mcg/day sublingual B12 supplement (or monthly injections) Continued to reinforce importance of mindful eating. Continue to increase physical activity. Follow up in [address], Pager # [phone] signed by Tea Reece RD at 09/29/2018 [...]
--- OUTSIDE RECORDS SUMMARY | ~2020-04-27 | XMS | Encounter Summary ---
Demographics + + + | Address | [address] | | | [place] [address] | + + + | Home Phone [...] [place] | | | | | [address] | | + + + + + Care Team Providers + +------+ + | Care Analytical Clerk Name | Role | Phone | [...] Center at [facility] [address] | MD [address] | | | | | [address] | [place], [place] | | | | | Mailcode: [place] | [address] | | | | | for Health and | [phone] | | | | | [place] [address] | | | | | | [facility] [place] | | | | | | [address] | | | | | | [phone] | | | +--------+ + + + [...]
--- OUTSIDE RECORDS SUMMARY | ~2020-04-27 | XMS | Encounter Summary ---
Demographics + + + | Address | [address] | | | [place] [address] | + + + | Home Phone [...] [place] | | | | | [address] | | + + + + + Care Team Providers + +------+ + | Care Tire Balancer Name | Role | Phone | + [...] | bariatric | AGACNP [address] | [address] [facility] | | | | | surgery | [address] | [address] | | | | | History of | [place], | [place], | | | | | abdominal | [place] | [place] | | | | | surgery | [address] | [address] | | | | | Recurrent | Phone: | Phone: | | | | | ventral | | [phone] | | | | | hernia | Fax: | Fax: | | | | | Abdominal | [phone] | [phone] | | | | | pain, | [...] 2019 | Encounter | Center at [facility] [address] | AGACNP [address] | | | | | [address] | Ave [place], [place] | | | | | Mailcode: Center | [address] | | | | | for Health and | | | | | | [facility] 2 | | | | | | [place], [place] | | | | | | [address] | | | | | | | [...]
--- OUTSIDE RECORDS SUMMARY | ~2020-04-27 | XMS | Encounter Summary ---
Demographics + + + | Address | [address] | | | [place] [address] | + + + | Home Phone [...] [place] | | | | | [address] | | + + + + + Care Team Providers + +------+ + | Care Development Technologist Name | Role | Phone | + +------+ + | Aleshia Martinez PA-C | PCP | | + +------+ + Encounter Details +--------+ + + + + | Date | Type | Department | Care Team | Description | +--------+ + + + + | 04/13/ | Abstract | Digestive Health | Clinic, Surgery | | | 2019 | | [place] at [facility] [address] | | | | | | [address] | | | | | | Mailcode: [place] | | | | | | for Health and | | | | | | Healing, Building 2 | | | | | | [place], [place] | | | | | | [address] | | | | | | [phone] | | | +--------+ + + + [...]
--- OUTSIDE RECORDS SUMMARY | ~2020-04-27 | XMS | Encounter Summary ---
Demographics + + + | Address | [address] | | | [place] [address] | + + + | Home Phone [...] [place] | | | | | [address] | | + + + + + Care Team Providers + +------+ + | Care Lapeler Name | Role | Phone | + +------+ + | Aleshia Martinez PA-C | PCP | | + +------+ + Encounter Details +--------+--------+ + + + | Date | Type | Department | Care Team | Description | +--------+--------+ + + + | 11/30/ | Travel | | | | | 2020 | | | | | +--------+--------+ + [...]
--- OUTSIDE RECORDS SUMMARY | ~2020-04-27 | XMS | Encounter Summary ---
Demographics + + + | Address | [address] | | | [place] [address] | + + + | Home Phone [...] [place] | | | | | [address] | | + + + + + Care Team Providers + +------+ + | Care Financial Brokers Name | Role | Phone | + [...] 2019 | Encounter | Center at [facility] [address] | MD [address] | up | | | | [address] | [address] | | | | | Mailcode: Center | [place], [place] | | | | | for Health and | [address] | | | | | Healing, Building 2 | [phone] | | | | | [place], [place] | | | | | | [address] | | | | | | [phone] | | | +--------+ + + + [...]
--- OUTSIDE RECORDS SUMMARY | ~2020-04-27 | XMS | Encounter Summary ---
Demographics + + + | Address | [address] | | | [place] [address] | + + + | Home Phone [...] [place] | | | | | [address] | | + + + + + Care Team Providers + +------+ + | Care Autocad Operator Name | Role | Phone | + +------+ + | Aleshia Martinez PA-C | PCP | | + +------+ + Encounter Details +--------+---------+ + + + | Date | Type | Department | Care Team | Description | +--------+---------+ + + + | 05/30/ | Office | Digestive Health | | Morbid obesity (HCC) | | 2018 | Visit | Center at [facility] [address] | | (Primary Dx) | | | | [address] | | | | | | Mailcode: Center | | | | | | for Health and | | | | | | Healing, Building 2 | | | | | | [place], [place] | | | | | | [address] | | | | | | [phone] | | | +--------+---------+ + + + [...] of Class: 1105 until 1225 (80 minutes bqll-qe-[id number] with patient) Teaching Methods: PowerPoint and verbal [...] a journal with fluid/protein d. Transportation 7. [place] [facility] Successful Weight Loss Surgery 8. Surgical [...]
--- OUTSIDE RECORDS SUMMARY | ~2020-04-27 | XMS | Encounter Summary ---
Demographics + + + | Address | [address] | | | [place] [address] | + + + | Home Phone [...] [place] | | | | | [address] | | + + + + + Care Team Providers + +------+ + | Care Supervisor Publications Name | Role | Phone | + [...] 2018 | Encounter | Center at [facility] [address] | ACNP [address] | vitamin ok? | | | | [address] | Ave [place], [place] | | | | | Mailcode: Center | [address] | | | | | for Health and | [phone] | | | | | Healing, Building 2 | | | | | | [place], [place] | | | | | | [address] | | | | | | [phone] | | | +--------+ + + + [...]
--- OUTSIDE RECORDS SUMMARY | ~2020-04-27 | XMS | Encounter Summary ---
Demographics + + + | Address | [address] | | | [place] [address] | + + + | Home Phone [...] [place] | | | | | [address] | | + + + + + Care Team Providers + +------+ + | Care Business Management Specialist Name | Role | Phone | + +------+ + | Aleshia Martinez PA-C | PCP | | + +------+ + Encounter Details +--------+ + + + + | Date | Type | Department | Care Team | Description | +--------+ + + + + | 05/03/ | Abstract | Digestive Health | Clinic, Surgery | | | 2017 | | [place] at [facility] [address] | | | | | | [address] | | | | | | Mailcode: [place] | | | | | | for Health and | | | | | | Healing, Building 2 | | | | | | [place], [place] | | | | | | [address] | | | | | | [phone] | | | +--------+ + + + [...]
--- OUTSIDE RECORDS SUMMARY | ~2020-04-27 | XMS | Encounter Summary ---
Demographics + + + | Address | [address] | | | [place] [address] | + + + | Home Phone [...] [place] | | | | | [address] | | + + + + + Care Team Providers + +------+ + | Care Sales Agent Pest Control Service Name | Role | Phone | [...] To Surgery | | 2017 | | [place] at [facility] [address] | | - General | | | | [address] | | | | | | Mailcode: [place] | | | | | | for Health and | | | | | | [facility], Building 2 | | | | | | [place], [place] | | | | | | [address] | | | | | | [phone] | | | +--------+ + + + [...]
--- OUTSIDE RECORDS SUMMARY | ~2020-04-27 | XMS | Clinical Summary ---
Demographics + + + | Address | [address] | | | [place] [address] | + + + | Home Phone | | + + + | Preferred Language | Unknown | + + + | Marital Status | | + + + | Rastafari Affiliation | CHR | + + + | Race | White | + + + | Ethnic Group | Not or | + + + Author + + + | Author | [facility] | + + + | Organization | [facility] | + + + | Address | Unknown | + + + | Phone | Unavailable | + + + Support + + + + + | Name | Relationship | Address | Phone | + + + + + | Stewart Corbett | ECON | [address] | | | | | [place] | | | | | [address] | | + + + + + Care Team Providers + +------+ + | Care Audio Visual Director Name | Role | Phone | + +------+ + | Aleshia Martinez PA-C | PCP | | + +------+ + Source Comments CANDY is fully live on both EpicCare Ambulatory and EpicCare InPatient.[facility] Allergies + + + [...] + + | 04/08/ | Patient | Emergency Medicine | Ritchie Em, | | | 2020 | Self-Triage | | MD | | +--------+ + [...] Pneumococcal | | | | | vaccination ( | 3 | | | | - [...] - | | | | | | /[id number] | | [id number]: Qty: 2 on | | | | | | 245 | | 08/31/2018 by Gildardo Downing | | | | | | | | MD [place] at [facility] | | | | | [...] - | | | | | | /[id number] | | [id number]: Qty: 2 on | | | | | | 248 | | 08/31/2018 by Gildardo Downing | | | | | | | | MD Navin at [facility] | | | | | | | | LOC | | | | | | | + +------+--------+ +--------+--------+--------+ | Mesh Surgical Bard [id number] | | N/A: | BARD | | 04/21/ | [id number] | | Hernia Soft Lightweight Low | | Abdome | | | 2023 | 6 / | | Profile Strong Knit | | n | | | | /[id number] | | Construction Monofilament - | | | | | | 141 | | [id number]: Qty: 1 on | | | | | | | | 09/22/2019 by Shu | | | | | | | | MD Bryson at [facility] | | | | | | [...] mi | al/Fam | | 1984 | [phone] | [place] [address] | | | pawel | | | 9 (Home) | | + +--------+ +--------+ + + | Miguelangel Caballero | Worker | Self | 08/15/ | | [address] | | mi | s Comp | | 1984 | [phone] | [place] [address] | | | | | | 9 (Home) | | + +--------+ +--------+ + + | Miguelangel Caballero | Worker | Self | 08/15/ | | [address] | | mi | s Comp | | 1984 | [phone] | [place] [address] | | | | | | 9 (Home) | | + +--------+ +--------+ + + | Miguelangel Caballero | Worker | Self | 08/15/ | | [address] | | mi | s Comp | | 1984 | [phone] | [place] [address] | | | | | | 9 [...]
--- OUTSIDE RECORDS SUMMARY | ~2020-04-27 | XMS | Encounter Summary ---
Demographics + + + | Address | [address] | | | [place] [address] | + + + | Home Phone [...] [place] | | | | | [address] | | + + + + + Care Team Providers + +------+ + | Care Salvage Machine Operator Name | Role | Phone [...] | SURGERY - | Rd | [address] [place] | | | | | PLASTICS | [place], [place] | for Health | | | | | | [address] | and Healing, | | | | | | Phone: | Building 1, | | | | | | [phone] | 5th Floor | | | | | | Fax: | [place], [place] | | | | | | [phone] | [address] | | | | | | | Phone: | | | | | | | [phone] | +--------+--------+ + + + + Encounter Details +--------+---------+ + + + | Date | Type | Department | Care Team | Description | +--------+---------+ + + + | 11/30/ | Office | Digestive Health | Shu, | Postop check | | 2020 | Visit | [place] at [facility] [address] | MD [address]ann [address] | (Primary Dx) | | | | [address] | [address] | | | | | Mailcode: Center | [place], [place] | | | | | for Health and | [address] | | | | | Healing, Building 2 | [phone] | | | | | [place], [place] | | | | | | [address] | | | | | | [phone] | | | +--------+---------+ + + + [...] causes discomfort or swit ch to a network solutions architect weight. I will order a referral to [...] laparotomy. 2. Excision of prior hernia mesh y6zkijtkuo pieces.2.5 hours spent excising mesh includ ing [...] mesh. There was no evidence of act samrad infection or current fistulization. Three pieces of [...] ed by Gilbert Reed. YANN IRELAND MD [facility] [address] [facility] Mailcode: [place] [address] documented in thi s encounter Plan of Treatment Not on filedocumented as of this encounter Visit Diagnoses + + | Diagnosis | + + | Postop check - Primary Follow-up examination, following unspecified surgery | + + documented in this encounter"
--- OUTSIDE RECORDS SUMMARY | ~2020-04-27 | XMS | Encounter Summary ---
Demographics + + + | Address | [address] | | | [place] [address] | + + + | Home Phone [...] [place] | | | | | [address] | | + + + + + Care Team Providers + +------+ + | Care Conventional Mortgage Underwriter Name | Role | Phone | + [...] | Pain | Diagnoses | Clarke, | Charter Boat Operator Psych | | | | Management | Morbid | Yumiko, ACNP | [facility] [address] | | | | | obesity with | [address] | | | | | BMI of | [address] | Mailcode: | | | | | 40.0-44.9, | [place], [place] | 15 Center | | | | | adult (HCC) | [address] | for Health | | | | | Borderline | Phone: | and Healing, | | | | | diabetes | [phone] | Building 1, | | | | | Essential | Fax: | 15th Floor | | | | | hypertension | [phone] | [place], [place] | | | | | Mild | | [address] | | | | | intermittent | | Phone: | | | | | asthma | | [phone] | | | | | without | | Fax: | | | | | complication | | [phone] | | | | | Anxiety | [...] 04/20/ | Office | [facility] at [facility] | Dylan Abraham, | Morbid obesity with | | 2017 | Visit | [address] | PhD [address] | BMI of 40.0-44.9, | | | | Mailcode: [facility] | [place], [place] | adult ([facility]) (Primary | | | | Center for Health | [address] | Dx); Generalized | | | | and Healing, | [phone] | anxiety disorder; | | | | Building | | Borderline diabetes; | | | | Floor [facility] [place] | | Major depressive | | | | [address] | | disorder, recurrent, | | | | [phone] | | in partial | | | | | | remission ([facility]); | | | | | | Essential [...] Name: Sara Caballero : 1985 Medical Record: [id number] Age:32 y.o. Weight: 278 lbs BMI: 44 Identifying Information: Sara Caballero is a 32 y.o. female who lives with her emily band, and her cousin and the cousin's 4 children in [place], [place]. She was referred for psy chological [...] yle. She reported doing most of the early breastfeeding care specialist. For enjoyment the patient does craft s, [...] to improve her consistency with following the drying tumbler operator's recommendations, especially eating more consistently throughout the day. 4. She should continue her current walking and pool exercise routines. 5. She is urged to participate in a Bariatric Surgery Support Group. Total time I spent was approximately 50 minutes tjwc-cp-aosf with the patient and approxima tely 1 hour 50 minutes of gge-plfk-ad-face testing, interpreting and synthesizing results. Dylan Abraham, PhD [facility] 15TH FLO[address] [facility] Mail Code: [address] [address] documented in this en counter Plan of Treatment Not on filedocumented as of this encounter Visit Diagnoses + + | Diagnosis | + + | Morbid obesity with BMI of 40.0-44.9, adult ([facility]) - Primary | + + | Generalized anxiety disorder | + + | Borderline diabetes Other abnormal glucose | + + | Major depressive disorder, recurrent, in partial remission ([facility]) Major depressive | | disorder, recurrent episode, in partial or unspecified remission | + + | Essential hypertension | + + | Ventral hernia with obstruction and without gangrene Ventral hernia, unspecified, | | with obstruction | + + documented in this encounter"
--- OUTSIDE RECORDS SUMMARY | ~2020-04-27 | XMS | Encounter Summary ---
Demographics + + + | Address | [address] | | | [place] [address] | + + + | Home Phone [...] [place] | | | | | [address] | | + + + + + Care Team Providers + +------+ + | Care Supervisor Coremaker Name | Role | Phone | + [...] and without | [address] | Rd [place], | | | | | gangrene | Rd | [place] | | | | | Procedures | [facility] [place] | [address] | | | | | REQUEST TO | [address] | Phone: | | | | | SURGERY | Phone: | [phone] | | | | | SNOW MAKER | [phone] | Fax: | | | | | BETTY WEBSTER | Fax: | [phone] | | | | | ARIES BERNAL | [phone] | | | | | | CO [...] with | | 2019 | Visit | [place] [address] | MD Yann [address] | obstruction and | | | | [address] | [address] | without gangrene | | | | Mailcode: Center | [place], [place] | (Primary Dx) | | | | for Health and | [address] | | | | | [facility] 2 | [phone] | | | | | [place], [place] | | | | | | [address] | | | | | | [phone] | | | +--------+---------+ + + + [...] 07/06/2019 9:50 AM PDTPATIENT SURGERY INFORMATION [facility] General Surgery Office Toll-free: ext [phone] Surgery Date: Sunday, September 22, [address]: [facility] Procedure: recurrent ventral hernia repair, excision [...] ease call the General Surgery Office at [phone] for [id number]. Check-in on the day of surgery is at the Admitting Department located on the 9th floor of [facility]. DIET Nothing to eat or drink [...] the surgery. Please see the list below, [facility] has a list of products that [...] contact our office . Products Containing Aspirin Ca-Stonewall, Anacin, Anexsia with Codeine, Andynos, Aspirin, Aspirin suppositories, Ascrip tin, Aspergum, Axotal, B-A-C, Baby Aspirin, Nader, BC Powder, Bexophene, Buffaprin, Bufferin , Buffinol, Cama-Arthritis Strength, Congespirin, [place], Coricidin, Damason, Darvon, Dristan, Rosetta-Gesic, Digel, Dolprin #3 Tablets, Donatab, Doxaphene, Duragesic, Easprin, Ecotrin, Emag rin Forte, Emiprin, Emprazil, Equagesic, Equazine M, Excedrin, Fiogesic, Fiorgen PH, Fiorice t, Fiorinal, 4-Way Cold Tablet, Gemnisyn, Indocin, Liquprin, Lortab ASA, Magnaprin, Marnal, Meprobamate, Midol, Momentum, Norgesic, Clayton, Orphengesic, Pabalate, P-A-C, Percodan, Pre salin, Robaxasil, Roxiprin, Saleto, Salocol, SK-65 Compound, Sine-Aid, Sine-Off, Seymour, Supac, Talwin Compound, Trigesic, Tolectin, Traiminicin, Vanquish, ZORprin, Zomax Products Containing Ibuprofen Advil, Aleve, Haltran, Medipren, Midol, Motrin, Naproxyn, Nuprin, Rufen Herbal Medications Ephedra: discontinue 24 hours before surgery Garlic: discontinue 7 days prior to surgery Ginkgo: discontinue 36 hours prior to surgery Ginseng: discontinue 7 days prior to surgery Kava: discontinue 24 hours prior to surgery [place] s Wort: discontinue 5 days prior to surgery Valerian: discontinue several weeks prior to surgery Other Products Which May Promote Bleeding Vitamin E, Gingko Biloba, Marine Fatty Acids, [place]-3 Fish Oil Supplement PRE-OP BATHING/SHOWER INSTRUCTIONS with [facility] Bathe or shower the evening before [...] actual loss of tissue. Check out the [facility] Quit Line - The Quit Line is open 24 hours a day, seven days a we ek. The Quit Line is a telephone and web-based counseling service to help [place]ians quit us ing tobacco and nicotine products. .QUIT.NOW ( ) or www.quitnow.net/[place] PARKING Parking at the Hospital for patients and visitors is available in the [facility] [place] [employer] Eye [employer] tructure located across from the emergency department. Patient parking is available on level 1 and 3. Metered parking is available on the top level. Parking at [facility] is available in the building's parking structure. For additional parking options visit [email or web address]. TRANSPORTATION You will require transportation home on the day of discharge. Pain medications and physical activity restrictions may limit your ability to drive safely. CANCELLING YOUR PROCEDURE Please notify the general surgery office at [phone] as soon as possible should you nee [...] repair. Her prior surgeries were performed in [place], [place] with Dr. Arthur Kuo. She repor [...] a non-smoker. 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 Can walk greater than 10 blocks, very active with her work . Past Surgical History Procedure Laterality Date Diagnostic laparoscopy 2009 Fallopian tube transection 2012 Ventral hernia repair with mesh 2013 Laparoscopic sleeve gastrectomy 08/31/[address] [facility] [address] Downing Past Medical History: Diagnosis Date [...] file Gets together: Not on file Attends synagogue service: Not on file Active member of [...] inguinal hernia repair. YANN IRELAND MD [facility]IVE [facility] AT [facility] [address] Mailcode: [place] [address] documented in this encounter Plan of Treatment Not on filedocumented as of this encounter Visit Diagnoses + + | Diagnosis | + + | Ventral hernia with obstruction and without gangrene - Primary Ventral hernia, | | unspecified, with obstruction | + + documented in this encounter
--- OUTSIDE RECORDS SUMMARY | ~2020-04-27 | XMS | Encounter Summary ---
Demographics + + + | Address | [address] | | | [place] [address] | + + + | Home Phone [...] [place] | | | | | [address] | | + + + + + Care Team Providers + +------+ + | Care Poultry Trimmer Name | Role | Phone | [...] | | 2018 | | Center at [facility] [address] | [address] | | | | | [address] | [place], [place] | | | | | Mailcode: Center | [address] | | | | | for Health and | [phone] | | | | | [facility], Building 2 | | | | | | [place], [place] | | | | | | [address] | | | | | | [phone] | | | +--------+ + + + [...]
--- OUTSIDE RECORDS SUMMARY | ~2020-04-27 | XMS | Encounter Summary ---
Demographics + + + | Address | [address] | | | [place] [address] | + + + | Home Phone [...] Providers + +------+ + | Care Waste Transportation Technician Name | Role | Phone | [...] job | | 2019 | Encounter | [place] at [facility] [address] | MD Bry[address] | needs a note / | | | | [address] | [address] | questions from m[place] | | | | Mailcode: Center | [place], [place] | | | | | for Health and | [address] | | | | | [facility] 2 | [phone] | | | | | [place], [place] | | | | | | [address] | | | | | | [phone] | | | +--------+ + + + [...]
--- OUTSIDE RECORDS SUMMARY | ~2020-04-27 | XMS | Encounter Summary ---
Demographics + + + | Address | [address] | | | [place] [address] | + + + | Home Phone [...] [place] | | | | | [address] | | + + + + + Care Team Providers + +------+ + | Care Machine Sign Writer Name | Role | Phone | + +------+ + | Aleshia Martinez PA-C | PCP | | + +------+ + Encounter Details +--------+ + + + + | Date | Type | Department | Care Team | Description | +--------+ + + + + | 01/07/ | Telephone | Digestive Health | Yumiko Clarke, | | | 2017 | | Center at [facility] [address] | ACNP [address] | | | | | [address] | Ave [place], [place] | | | | | Mailcode: Center | [address] | | | | | for Health and | [phone] | | | | | [facility] 2 | | | | | | [place], [place] | | | | | | [address] | | | | | | [phone] | | | +--------+ + + + [...]
--- OUTSIDE RECORDS SUMMARY | ~2020-04-27 | XMS | Encounter Summary ---
Demographics + + + | Address | [address] | | | [place] [address] | + + + | Home Phone [...] [place] | | | | | [address] | | + + + + + Care Team Providers + +------+ + | Care Wood Window And Door Craftsman Name | Role | Phone | + [...] 2019 | Encounter | Center at [facility] [address]25 | MD [address] | follow up | | | | [address] | [place], [place] | appointment | | | | Mailcode: Center | [address] | | | | | for Health and | [phone] | | | | | Healing, Building 2 | | | | | | [place], [place] | | | | | | [address] | | | | | | [phone] | | | +--------+ + + + [...]
--- OUTSIDE RECORDS SUMMARY | ~2020-04-27 | XMS | Encounter Summary ---
Demographics + + + | Address | [address] | | | [place] [address] | + + + | Home Phone [...] [place] | | | | | [address] | | + + + + + Care Team Providers + +------+ + | Care Agricultural Equipment Sales Manager Name | Role | Phone | [...] Pharmacy | | | | | | [address] | | | | | | [place] | | | | | | [address] | | | | | | [phone] | | | +--------+ + + + [...]
--- OUTSIDE RECORDS SUMMARY | ~2020-04-27 | XMS | Encounter Summary ---
Demographics + + + | Address | [address] | | | [place] [address] | + + + | Home Phone [...] [place] | | | | | [address] | | + + + + + Care Team Providers + +------+ + | Care Emt I/85 Name | Role | Phone | + [...] | Event | SULLY Lopez | MD [address] | | | | | Rd [facility] | [address] | | | | | Hospital Admitting | [place], [place] | | | | | Desk Located on the | [address] | | | | | 9th floor | [phone] | | | | | [place], [place] | | | | | | [address] | Austen Wilkinson, | | | | | | FLEET MAINTENANCE FOREMAN [address] | | | | | | [address] | | | | | | [place], [place] | | | | | | [address] | | | | | | [phone] | | | | | | | | +--------+ + + + + Anesthesia Record + + + + + | Procedure Name | Responsible | Anesthesia Start | Anesthesia Stop Time | | | Anesthesiologist | Time | | + + + + + | RECURRENT VENTRAL | Rafi Askew MD | 09/22/19 1158 | 09/22/19 7925 | | HERNIA REPAIR AND | | [...] | | Oral; Cuffed; 09/22/19; 1544 | FLEET MAINTENANCE FOREMAN | FLEET MAINTENANCE FOREMAN | +--------+ + + + documented [...] At | + + + | Austen Wilknison CRNA 09/22/2019 12:38 PM AIRWAY MANAGEMENT - [...]
--- OUTSIDE RECORDS SUMMARY | ~2020-04-27 | XMS | Encounter Summary ---
Demographics + + + | Address | [address] | | | [place] [address] | + + + | Home Phone [...] [place] | | | | | [address] | | + + + + + Care Team Providers + +------+ + | Care Digital Community Manager Name | Role | Phone | [...] | 2018 | Encounter | Center at [facility] [address] | | support group | | | | [address] | | | | | | Mailcode: [place] | | | | | | for Health and | | | | | | Healing, Building 2 | | | | | | [place], [place] | | | | | | [address] | | | | | | [phone] | | | +--------+ + + + [...]
--- OUTSIDE RECORDS SUMMARY | ~2020-04-27 | XMS | Encounter Summary ---
Demographics + + + | Address | [address] | | | [place] [address] | + + + | Home Phone [...] [place] | | | | | [address] | | + + + + + Care Team Providers + +------+ + | Care Distance Education Director Name | Role | Phone [...] | | | | | | | [place], [place] | | | | | | | [address] | | | | | | | Phone: | | | | | | | [phone] | | | | | | | Fax: | | | | | | | [phone] | + +--------+ + + + + Encounter Details +--------+---------+ + + + | Date | Type | Department | Care Team | Description | +--------+---------+ + + + | 11/25/ | Office | Digestive Health | Tea Reece, | S/P laparoscopic | | 2019 | Visit | Center at [facility] [address] | [address] [facility] | sleeve gastrectomy | | | | [address] [facility] | [address] | (Primary Dx) | | | | for Health and | [place], [place] | | | | | [facility] 2 | [address] | | | | | [place], [place] | | | | | | [address] | | | | | | [phone] | | | +--------+---------+ + + + [...] of visit: 10:00 to 10:28 (28 minutes aeiy-of-ckdg with patient) Surgery: Sleeve Gastrectomy Date of [...] getting BA capsules after she uses up pre-natalee vitamins as this would marshall it need [...] progression: Begin stage 4 according to [facility] diet guidelines -Provided written & verbal [...] multivitamin & mineral (with iron) supplement, 2/day -4663-0466 mg calcium citrate with vitamin D/day (take in divided doses, not within 2 hour s of multivitamin or iron supplement) -500 mcg/day sublingual B12 supplement (or monthly injections) Continued to reinforce importance of mindful eating. Continue to increase physical activity. Follow up in [address], Pager # [phone] signed by Tea Reece RD at 11/25/2018 10:38 AM PSTdocument ed in this encounter Plan of Treatment Not on filedocumented as of this encounter Procedures + +--------+ + + + | Procedure Name | Priori | Date/Time | Associated Diagnosis | Comments | | | ty | | | | + +--------+ + + + | MI MNT RE-ASSESSMNT | Routin | 11/25/2018 | [...]
--- OUTSIDE RECORDS SUMMARY | ~2020-04-27 | XMS | Encounter Summary ---
Demographics + + + | Address | [address] | | | [place] [address] | + + + | Home Phone [...] [place] | | | | | [address] | | + + + + + Care Team Providers + +------+ + | Care Counter Dish Carrier Name | Role | Phone | [...] | | | [address] | [place], [place] | | | | | Mailcode: [place] | [address] | | | | | for Health and | [phone] | | | | | [place] [address] | | | | | | [place], [place] | | | | | | [address] | | | | | | [phone] | | | +--------+ + + + [...]
--- OUTSIDE RECORDS SUMMARY | ~2020-04-27 | XMS | Encounter Summary ---
Demographics + + + | Address | [address] | | | [place] [address] | + + + | Home Phone [...] [place] | | | | | [address] | | + + + + + Care Team Providers + +------+ + | Care Professor Of Rhetoric Name | Role | Phone | + [...] | | | | | | | [place], [place] | | | | | | | [address] | | | | | | | Phone: | | | | | | | [phone] | | | | | | | Fax: | | | | | | | [phone] | + +--------+ + + + + Encounter Details +--------+---------+ + + + | Date | Type | Department | Care Team | Description | +--------+---------+ + + + | 09/07/ | Office | Digestive Health | [address] | S/P laparoscopic | | 2018 | Visit | Center at [facility] [address] | [address] | sleeve gastrectomy | | | | [address] [facility] | [address] [place], | (Primary Dx); Morbid | | | | for Health and | [place] [address] | obesity with BMI of | | | | [facility] 2 | [phone] | 40.0-44.9, adult | | | | [place], [place] | | (HCC); Borderline | | | | [address] | | diabetes | | | | [phone] | | | +--------+---------+ + + + [...] of visit: 1:03 to 1:28 (25 minutes hsdh-eh-keme with patient) Surgery: Sleeve Gastrectomy Date of [...] choices: Water, Popsicles, Powerade Supplementation: multivitamin - [place]'s, calcium with vitamin D - Citracal Petites [...] multivitamin & mineral (with iron) supplement, 2/day -4863-2535 mg calcium citrate with vitamin D/day (take [...] month post-op Chetna Alves RD, CNSC, LD [facility] Bariatrics [phone] documented in this enco unter Plan of Treatment Not on filedocumented as of this encounter Procedures + +--------+ + + + | Procedure Name | Priori | Date/Time | Associated Diagnosis | Comments | | | ty | | | | + +--------+ + + + | NE MNT RE-ASSESSMNT | Routin | 09/07/2018 | Morbid obesity | | | X15MIN | e | 3:05 PM | with BMI of | | | | | PST | 40.0-44.9, adult | | | | | | ([place] [...]
--- OUTSIDE RECORDS SUMMARY | ~2020-04-27 | XMS | Encounter Summary ---
Demographics + + + | Address | [address] | | | [place] [address] | + + + | Home Phone [...] [place] | | | | | [address] | | + + + + + Care Team Providers + +------+ + | Care Real Estate Management Specialist Name | Role | Phone [...] | 2019 | Encounter | Center at [facility] [address]26 | [address] | | | | | [address] | [facility] | | | | | Mailcode: Center | [place], [place] | | | | | [facility] Health and | [address] | | | | | [facility], [facility] 2 | [phone] | | | | | [place], [place] | | | | | | [address] | | | | | | [phone] | | | +--------+ + + + [...]
--- OUTSIDE RECORDS SUMMARY | ~2020-04-27 | XMS | Encounter Summary ---
Demographics + + + | Address | [address] | | | [place] [address] | + + + | Home Phone [...] [place] | | | | | [address] | | + + + + + Care Team Providers + +------+ + | Care Pot Press Operator Name | Role | Phone | + +------+ + | Aleshia Martinez PA-C | PCP | | + +------+ + Encounter Details +--------+ + + + + | Date | Type | Department | Care Team | Description | +--------+ + + + + | 07/01/ | Telephone | Digestive Health | Gildardo Downing, | | | 2017 | | Center at [facility] [address] | [address] | | | | | [address] | [place], [place] | | | | | Mailcode: Center | [address] | | | | | for Health and | [phone] | | | | | [facility], Building 2 | | | | | | [place], [place] | | | | | | [address] | | | | | | [phone] | | | +--------+ + + + [...]
--- OUTSIDE RECORDS SUMMARY | ~2020-04-27 | XMS | Encounter Summary ---
Demographics + + + | Address | [address] | | | [place] [address] | + + + | Home Phone [...] [place] | | | | | [address] | | + + + + + Care Team Providers + +------+ + | Care Senior Media Planner Name | Role | Phone | [...] | 2020 | Encounter | Center at [facility] [address] | MD [address] | to ask at my check | | | | [address] | [address] | up | | | | Mailcode: Center | [place], [place] | | | | | for Health and | [address] | | | | | [facility] 2 | [phone] | | | | | [place], [place] | | | | | | [address] | | | | | | [phone] | | | +--------+ + + + [...]
--- OUTSIDE RECORDS SUMMARY | ~2020-04-27 | XMS | Encounter Summary ---
Demographics + + + | Address | [address] | | | [place] [address] | + + + | Home Phone [...] [place] | | | | | [address] | | + + + + + Care Team Providers + +------+ + | Care Diesel Machinist Name | Role | Phone | + [...] | | | | | | | [place], [place] | | | | | | | [address] | | | | | | | Phone: | | | | | | | [phone] | | | | | | | Fax: | | | | | | | [phone] | +--------+--------+ + + + + Encounter [...] | | | [address] | [place], [place] | adult (HCC) (Primary | | | | Mailcode: Center | [address] | Dx); Borderline | | | | for Health and | [phone] | diabetes; Essential | | | | Healing, Building 2 | | hypertension; | | | | [place], [place] | | Ventral hernia with | | | | [address] | | obstruction and | | | | [phone] | | without gangrene | +--------+---------+ + [...] the resident s note. Es Bingham MD, [facility], FACS ES BINGHAM MD [facility] 6TH FLOOR [address] Mailcode: [facility] [place] [address] Nba Finn MD - 02/28/2018 2:25 PM PDT [facility] Department of Surgery Blue [...] feels depressed since her was gone to [place], improving since he returned home on 02/25, [...] Nba Amaya MD General Surgery, PGY-2 Pager [phone] documented in thi s encounter Plan of [...]
--- OUTSIDE RECORDS SUMMARY | ~2020-04-27 | XMS | Encounter Summary ---
Demographics + + + | Address | [address] | | | [place] [address] | + + + | Home Phone [...] [place] | | | | | [address] | | + + + + + Care Team Providers + +------+ + | Care Conservation Scientist Name | Role | Phone | [...] | [address] | [address] [place], | (Primary Dx); | | | | Mailcode: Center | [place] [address] | Vitamin D | | | | for Health and | [phone] | deficiency; | | | | Healing, Building 2 | | Gastroesophageal | | | | [place], [place] | | reflux disease, | | | | [address] | | esophagitis presence | | | | [phone] | | not specified; | | | [...] before eating anything. 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 Start time 1050, end time 1120. I spent a total of 30 minutes face to face with this patie nt. Over 50% of visit was in counseling. Shanon Etienne, MSN, AG-ACNP, DESULPHURING OPERATOR Bariatric Surgery Nurse Practitioner [facility] | [address] | [place], [place] | [address] | documented in this enco unter Plan [...]
--- OUTSIDE RECORDS SUMMARY | ~2020-04-27 | XMS | Encounter Summary ---
Demographics + + + | Address | [address] | | | [place] [address] | + + + | Home Phone [...] [place] | | | | | [address] | | + + + + + Care Team Providers + +------+ + | Care Concrete Pourer Name | Role | Phone | + [...] 2019 | | Center at [facility] 6599 | MD [address] | | | | | [address] | [address] | | | | | Mailcode: [place] | [place], [place] | | | | | [facility] and | [address] | | | | | [facility] 2 | [phone] | | | | | [place], [place] | | | | | | [address] | | | | | | [phone] | | | +--------+ + + + [...]
[~2020-04-27 14:39] MED LIST changes: +METHOCARBAMOL750 MG PO; +PROMETHAZINE HC25 M1 PO
--- OUTSIDE RECORDS SUMMARY | 2020-04-27 14:42 | XMS ---
PreManage Notification: PATTI FREIRE Security Brand Sales Consultant Events 1 event(s) in the past 18 months Most recent security events: [facility]opement at [facility] 09/27/2019 12:02 - Other Details: PATIENT LEFT AMA CRITERIA MET - Group Notification - PDMP CARE PROVIDERS SOURAV PAINTER Physician Agricultural Engineering Technicians Current PHONE: [phone] Mathieu has no Care Guidelines for this patient. E.D. VISIT COUNT (12 MO.) 4 [facility]. TOTAL 4 NOTE: Visits indicate total known visits. ED/UCC VISIT TRACKING (12 MO.) 04/27/2020 14:39 [facility] [place] TYPE: Emergency COMPLAINT: - BACK PAIN 03/18/2020 13:25 [facility] [place] TYPE: Emergency COMPLAINT: - BACK PAIN NON INJURY DIAGNOSES: - Essential (primary) hypertension - Latex allergy status - Other supervisor intermediates (current) drug therapy - Personal history of nicotine dependence - Radiographic dye allergy status - Low back pain 09/27/2019 12:02 [facility] [place] TYPE: Emergency COMPLAINT: - SOB - AMA DIAGNOSES: - Shortness of breath 09/13/2019 12:51 [facility] [place] TYPE: Emergency COMPLAINT: - ABD PAIN/HERNIA DIAGNOSES: - Latex allergy status - Radiographic dye allergy status - Other residential (current) drug therapy - Other nonmedicinal substance allergy status - Unspecified abdominal pain - Allergy status to other drugs, medicaments and biological sub - Overexertion from strenuous movement or load, initial encount - Essential (primary) hypertension - Strain of muscle, fascia and tendon of abdomen, initial encou INPATIENT VISIT TRACKING (12 MO.) 09/22/2019 09:58 [facility] TYPE: Surgery DIAGNOSES: 686[address]. PARTIALLY INCARCERATED INCISIONAL HERNIA 467[address]. Other and unspecified ventral hernia with obstruction, withou [email or web address]
[2020-04-27] MEDS ORDERED: NORCO 5-325 TA1 EACH PO (15:58)
== END 2020-04-27 16:29 | disposition home or self-care (01) ==
LOC: ED 14:39
DX: M54.41 Lumbago with sciatica, right side (principal); I10 Essential (primary) hypertension; Z87.891 Personal history of nicotine dependence; Z91.041 Radiographic dye allergy status; Z91.048 Other nonmedicinal substance allergy status; Z91.040 Latex allergy status; Z88.6 Allergy status to analgesic agent; Z79.899 Other long term (current) drug therapy
CPT/HCPCS: 99283

== ENCOUNTER 2020-10-22 07:37 | Emergency (ER) | payer BC ==
[~2020-10-22] VITALS: Ht 170.2 cm; Wt 77.1 kg
--- OUTSIDE RECORDS SUMMARY | 2020-10-22 07:40 | XMS ---
PreManage Notification: PATTI FREIRE Security Pharmacy Services Representative Events 1 event(s) in the past 18 months Most recent security events: Elopement at [facility] 09/27/2019 12:02 - Other Details: PATIENT LEFT AMA CRITERIA MET - Group Notification CARE PROVIDERS SOURAV PAINTER Physician Current PHONE: [phone] Mathieu has no Care Guidelines for this patient. E.Angelo. VISIT COUNT (12 MO.) 3 [facility]. TOTAL 3 NOTE: Visits indicate total known visits. ED/UCC VISIT TRACKING (12 MO.) 10/22/2020 07:38 [facility] [place] TYPE: Emergency COMPLAINT: - R HAND PAIN 04/27/2020 14:39 [facility] [place] TYPE: Emergency COMPLAINT: - BACK PAIN/ NON INJURY DIAGNOSES: - Personal history of nicotine dependence - Other nonmedicinal substance allergy status - Allergy status to analgesic agent - Other long term care pharmacist (current) drug therapy - Low back pain - Essential (primary) hypertension - Lumbago with sciatica, right side - Latex allergy status - Radiographic dye allergy status 03/18/2020 13:25 [facility] [place] TYPE: Emergency COMPLAINT: - BACK PAIN NON INJURY DIAGNOSES: - Essential (primary) hypertension - Latex allergy status - Other care home (current) drug therapy - Personal history of nicotine dependence - Radiographic dye allergy status - Low back pain INPATIENT VISIT TRACKING (12 MO.) No inpatient visits to display in this time frame [email or web address]
== END 2020-10-22 10:14 | disposition home or self-care (01) ==
LOC: ED 07:37
DX: M79.641 Pain in right hand (principal); I10 Essential (primary) hypertension; Z87.891 Personal history of nicotine dependence; Z88.8 Allergy status to other drugs, medicaments and biological substances; Z91.040 Latex allergy status; Z91.041 Radiographic dye allergy status; Z79.899 Other long term (current) drug therapy; Z79.52 Long term (current) use of systemic steroids
CPT/HCPCS: 73130; 99283-25; A9270

== ENCOUNTER 2020-11-24 13:13 | Emergency (ER) | payer BC ==
[~2020-11-24] VITALS: Ht 170.2 cm; Wt 79.8 kg
--- OUTSIDE RECORDS SUMMARY | 2020-11-24 13:16 | XMS ---
PreManage Notification: PATTI FREIRE Security Senior Underwriter Events 1 event(s) in the past 18 months Most recent security events: Elopement at [facility] 09/27/2019 12:02 - Other Details: PATIENT LEFT AMA CRITERIA MET - Group Notification CARE PROVIDERS SOURAV PAINTER Physician Current PHONE: [phone] Mathieu has no Care Guidelines for this patient. E.Angelo. VISIT COUNT (12 MO.) 4 [facility]. TOTAL 4 NOTE: Visits indicate total known visits. 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 - Allergy status to other drugs, medicaments and biological substances - Other [place] [facility] [place] (current) drug therapy - Radiographic dye allergy status - Latex allergy status - Pain in right hand - Personal history of nicotine dependence 04/27/2020 14:39 [facility] [place] TYPE: Emergency COMPLAINT: - BACK PAIN/ NON INJURY DIAGNOSES: - Personal history of nicotine dependence - Other nonmedicinal substance allergy status - Allergy status to analgesic agent - Other [place] [facility] [place] (current) drug therapy - Low back pain - Essential (primary) hypertension - Lumbago with sciatica, right side - Latex allergy status - Radiographic dye allergy status 03/18/2020 13:25 [facility] [place] TYPE: Emergency COMPLAINT: - BACK PAIN NON INJURY DIAGNOSES: - Essential (primary) hypertension - Latex allergy status - Other [place] [facility] [place] (current) drug therapy - Personal history of nicotine dependence - Radiographic dye allergy status - Low back pain INPATIENT VISIT TRACKING (12 MO.) No inpatient visits to display in this time frame [email or web address]
[2020-11-24] MEDS ORDERED: DEPAKOTE500 MG PO (13:44)
[2020-11-24] MEDS ORDERED: ONDANSETRON ODT4 MG PO (17:38)
== END 2020-11-24 17:54 | disposition home or self-care (01) ==
LOC: ED 13:13
DX: B34.9 Viral infection, unspecified (principal); Z20.822 Contact with and (suspected) exposure to COVID-19; I10 Essential (primary) hypertension; Z87.891 Personal history of nicotine dependence; Z88.8 Allergy status to other drugs, medicaments and biological substances; Z91.040 Latex allergy status; Z91.048 Other nonmedicinal substance allergy status; Z91.041 Radiographic dye allergy status; Z79.899 Other long term (current) drug therapy
CPT/HCPCS: 80053; 81001; 83690; 83735; 84703; 85025; 87502; 96374; 96375; 99284-25; C9803; J1885; J2405; J7030; U0003

== ENCOUNTER 2024-08-29 07:31 | Emergency (ER) | payer OTHER, BC ==
[~2024-08-29] VITALS: Ht 170.2 cm; Wt 82.6 kg
[~2024-08-29 07:31] MED LIST changes: +ALPRAZOLAM0.5 MG PO; +CARAFATE1 GM PO; +CYANOCOBAL1000 MCG/M IM; +DEPAKOTE500 MG PO; +DULOXETINE HCL60 MG PO; +LITHIUM CARBON150 MG PO; +ONDANSETRON ODT4 MG PO; +ONDANSETRON ODT8 MG PO; +PREGABALIN225 MG PO; +REGLAN10 MG PO; +SERTRALINE HCL100 MG PO; +TRAZODONE HCL100 MG PO
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
[2024-08-29] MEDS ORDERED: KETOROLAC TROMETHAMINE 60 MG/2 ML VIAL IM ONE (08:00)
[2024-08-29] MEDS ORDERED: LIDOCAINE HCL 4% 1 EACH PATCH TD ONE (08:15)
[2024-08-29] MEDS ORDERED: KETOROLAC TROME10 MG PO (08:50)
[2024-08-29] MEDS ORDERED: LIDODERM1 EACH TOP (08:50)
[2024-08-29] MEDS ORDERED: CYCLOBENZAPRINE10 MG PO (08:50)
[2024-08-29 09:02] VITALS: BP 120/79
[2024-08-29] MEDS ORDERED: LIDOCAINE PATCH REMOVAL 1 EA TD SCH (21:00)
== END 2024-08-29 09:03 | disposition home or self-care (01) ==
LOC: ED 07:31
DX: S49.92XA Unspecified injury of left shoulder and upper arm, initial encounter (principal); M54.6 Pain in thoracic spine; I10 Essential (primary) hypertension; Z87.891 Personal history of nicotine dependence; Z88.6 Allergy status to analgesic agent; Z91.041 Radiographic dye allergy status; Z91.040 Latex allergy status; Z91.048 Other nonmedicinal substance allergy status; Z79.899 Other long term (current) drug therapy; W50.0XXA Accidental hit or strike by another person, initial encounter; Y99.0 Civilian activity done for income or pay
CPT/HCPCS: 73030; 96372; 99283; A9270; J1885

== ENCOUNTER 2024-10-16 09:43 | Emergency (ER) | payer OTHER ==
[~2024-10-16] VITALS: Ht 170.2 cm; Wt 85.1 kg
[~2024-10-16 09:43] MED LIST changes: +CYCLOBENZAPRINE10 MG PO; +KETOROLAC TROME10 MG PO; +LIDODERM1 EACH TOP
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
[2024-10-16] MEDS ORDERED: ZYRTEC10 M3 PO (10:00)
[2024-10-16] MEDS ORDERED: ROSUVASTATIN CA10 MG PO (10:02)
[2024-10-16] MEDS ORDERED: CYCLOBENZAPRINE HCL 10 MG TAB PO ONE (10:15)
[2024-10-16] MEDS ORDERED: OXYCODONE/APAP 5/325 TAB PO ONE (10:15)
[2024-10-16] MEDS ORDERED: PERCOCET 5-3251 EACH PO (11:24)
[2024-10-16] MEDS ORDERED: CYCLOBENZAPRINE10 MG PO (11:24)
[2024-10-16 11:58] VITALS: BP 141/92
== END 2024-10-16 12:00 | disposition home or self-care (01) ==
LOC: ED 09:43
DX: M25.512 Pain in left shoulder (principal); I10 Essential (primary) hypertension; Z87.891 Personal history of nicotine dependence; Z91.041 Radiographic dye allergy status; Z91.048 Other nonmedicinal substance allergy status; Z91.040 Latex allergy status; Z88.6 Allergy status to analgesic agent; Z79.899 Other long term (current) drug therapy
CPT/HCPCS: 99283